=== PATIENT | female | born 1945 | race Caucasian/White ===

== ENCOUNTER 2020-02-12 06:02 | Outpatient (REF) | payer MEDICARE, SELFPAY ==
[2020-02-12 07:48] LABS: Alanine Aminotransferase 15 U/L (0-31); Albumin Level 3.7 g/dL (3.5-5.0); Alkaline Phosphatase 108 U/L (39-117); Anion Gap 15 (12-20); Aspartate Amino Transferase 15 U/L (5-31); Bilirubin Total 0.6 mg/dL (0.0-1.0); Blood Urea Nitrogen 11 mg/dL (9-16); Carbon Dioxide 30 mmol/L (22-29); Chloride 101 mmol/L (96-108); Cholesterol 103 mg/dL; Estimated Glomerular Filt Rate > 60; Glucose Fasting 121 mg/dL (60-99); HDL Cholesterol 35 mg/dL; LDL Cholesterol Calculated 58 mg/dl; Sodium 142 mmol/L (135-145); Total Protein 6.9 g/dL (6.5-8.0); Triglycerides 50 mg/dL
[2020-02-12 08:09] LABS: Vitamin D 25-OH Total 11.7 ng/mL (>30)
[2020-02-12 10:19] LABS: Folate > 20.0 ng/mL (> or = 4.0); Vitamin B12 391 pg/mL (200-900)
== END 2020-02-12 06:03 | disposition home or self-care (01) ==
LOC: HO.LAB 06:02
PROVIDERS: PCP Internal Medicine; Visit Provider Internal Medicine
DX: E53.8 Deficiency of other specified B group vitamins (principal); E11.9 Type 2 diabetes mellitus without complications; E55.9 Vitamin D deficiency, unspecified
CPT/HCPCS: 80053; 80061; 82306; 82607; 82746

== ENCOUNTER 2020-08-14 10:58 | Emergency (ER) | payer MEDICARE, SELFPAY ==
[2020-08-14] VITALS (12 sets, daily range): BP systolic 135–172; BP diastolic 22–86; PULSE 68–86; RESP 14–18; TEMP 36.4–36.6; O2SAT 92–94; BMI 35.4
--- NOTE | ~2020-08-14 | CT_ITS ---
EXAMINATION: CT HEAD WITHOUT CONTRAST CLINICAL INFORMATION: Dizziness. COMPARISON: None TECHNIQUE: Contiguous axial imaging was performed from the skull base to vertex without intravenous administration of contrast. This CT examination was performed using dose optimization techniques as appropriate, variously including the following: *Automated exposure control *Adjustment of mA and/or kV according to patient size (this includes techniques or standardized protocols for targeted exams where dose is matched to indication/reason for exam; i.e. extremities or head) *Use of iterative reconstruction technique DLP: 611 mGy-cm FINDINGS: There is no evidence of acute intracranial hemorrhage or territorial infarction. There is old right posterior parietal and occipital lobe infarct. No abnormal mass effect or midline shift is seen. Herbert to white matter differentiation is well preserved. No extra-axial fluid collections are identified. The ventricles are normal in size. There is no abnormal attenuation within the brain parenchyma. Bone windows reveal no calvarial abnormality except for a small calcified mass along the right midline frontal bone unchanged to previous study. The mastoid air cells and visualized portions of the paranasal sinuses are well aerated. CT/CT head/brain wo con IMPRESSION: No acute intracranial process seen. No significant change in the right posterior parietal and occipital lobe infarcts. Exophytic sclerotic bony lesion frontal bone is stable.
--- NOTE | 2020-08-14 14:45 | ED.DIZZY ---
HPI - Dizziness General Chief Complaint: Dizziness Stated Complaint: Dizziness,throwing up Time Seen by Provider: 08/14/20 14:33 Source: patient, family and baby attendant Mode of arrival: ambulatory Limitations: no limitations History of Present Illness HPI Narrative: 70 yo female with hx of osteoporosis, vertigo, HTN, ear infections, asthma, HLD, depression, DM comes in with c/o vomiting her food all night last night then woke up this AM and c/o feeling weak and dizzy as well as nauseated, patient has no pain still c/o nausea and dizzy when standing MD elicited complaint: dizziness and lightheadedness Pertinent past history: other (vertigo and ear infections) Onset (ago): hour(s) (early upon waking this AM) Timing: gradual onset, awoke with symptoms and intermittent Severity: moderate Description: sense of movement and lightheadedness Context: recent illness History of similar symptoms: Yes Exacerbating factors: movement/ambulation and change in body position Relieving factors: remaining still, rest and lying down Associated symptoms: vomiting Related Data Home Medications Medication Instructions Recorded Confirmed albuterol sulfate 90 mcg/actuation 2 puff INHALATION Q6H PRN 02/13/20 02/13/20 aerosol inhaler alendronate 70 mg tablet 70 mg PO QWEEK 02/13/20 02/13/20 amlodipine 10 mg tablet 10 mg PO DAILY 02/13/20 02/13/20 citalopram 10 mg tablet 10 mg PO DAILY 02/13/20 02/13/20 cyanocobalamin (vitamin B-12) 1,000 mcg PO DAILY 02/13/20 02/13/20 1,000 mcg tablet folic acid 1 mg tablet 1 mg PO DAILY 02/13/20 02/13/20 metformin 1,000 mg tablet 1,000 mg PO BID 02/13/20 02/13/20 Previous Rx's Medication Instructions Recorded doxazosin 2 mg tablet 2 mg PO DAILY #30 tab 12/30/19 blood-glucose meter #1 ea 01/03/20 dicyclomine 20 mg tablet 20 mg PO TID 30 Days #90 tab 02/13/20 atorvastatin 80 mg tablet 80 mg PO DAILY #90 cap 03/21/20 metoprolol succinate 100 mg 100 mg PO DAILY 90 Days #90 tab 03/21/20 tablet,extended release 24 hr oxybutynin chloride 10 mg 10 mg PO DAILY #90 cap 03/21/20 tablet,extended release 24 hr aspirin 81 mg tablet,delayed 81 mg PO DAILY #90 cap 04/07/20 release loratadine 10 mg tablet 10 mg PO DAILY #90 cap 04/25/20 amoxicillin 500 mg tablet 500 mg PO Q12H 7 Days #14 tab 04/30/20 losartan 25 mg tablet 25 mg PO DAILY #90 cap 06/13/20 omeprazole 20 mg capsule,delayed 20 mg PO QAM #30 cap 06/19/20 release fluticasone propionate 44 2 puff PO BID #31.8 cap 06/22/20 mcg/actuation HFA aerosol inhaler ergocalciferol (vitamin D2) 1,250 1,250 mcg PO QWEEK 30 Days #4 cap 07/06/20 mcg (50,000 unit) capsule blood sugar diagnostic 1 strip MISCELLANEOUS BID #200 cap 07/17/20 hydralazine 100 mg tablet 100 mg PO BID #180 cap 07/27/20 Allergies Allergy/AdvReac Type Severity Reaction Status Date / Time egg [EGG] AdvReac Unknown DIARRHEA Verified 08/14/20 11:52 oats [OATS] AdvReac Unknown DIARRHEA Verified 08/14/20 11:52 FROM OATMEAL Pioglitazone HCl AdvReac Unknown edema Uncoded 08/14/20 11:52 Review of Systems Review of Systems: Constitutional : No Weight loss, No Fever, No Chills, No Fatigue, No Malaise ENT/Mouth : No sore throat, No Rhinorrhea Eyes: No Eye Pain, No Swelling, No Redness Cardiovascular : No Chest Pain, No SOB, No Dyspnea on Exertion, No Orthopnea, No Edema, No Palpitations Respiratory : No Cough, No Sputum, No Wheezing Gastrointestinal : pos Nausea, pos Vomiting, No Diarrhea, No Constipation, No abdominal Pain, No Hematochezia, No Melena Genitourinary : No Dysuria, No Urinary Frequency, No Hematuria, Musculoskeletal : No joint pain, No Myalgias, No Joint Swelling Skin : No Skin Lesions, No rash Neuro : pos Weakness, No Numbness, pos Dizziness, No Headache Psych : No Anxiety/Panic, No Depression Heme/Lymph: No Bruising, No Bleeding,No Lymphadenopathy Endocrine : No Polyuria, No Polydipsia All other systems reviewed and are negative PMFSH Past Medical History Attestation statement: The following information was validated with the patient. Medical History B12 deficiency Diabetes mellitus Essential hypertension Gallstones GERD (gastroesophageal reflux disease) History of stroke Hypovitaminosis D Moderate asthma Osteoporosis Otitis media Pure hypercholesterolemia Social History Social History (Updated 08/14/20 @ 15:05 by Kristel Zapien DO) Alcohol intake: never Patient Tobacco Use Status: Never used Tobacco Smoked in Last 30 Days: No Use of substances other than those prescribed or required for medical reasons: No Advance Directives: Yes Advance Directives Information Provided: Yes Advance Directives on File: No Physical Exam Vital Signs: Vital Signs: Last Vital Signs Temp 97.5 F 08/14/20 14:46 Pulse 85 08/14/20 14:59 Resp 16 08/14/20 14:46 BP 171/75 H 08/14/20 14:59 Pulse Ox 94 08/14/20 14:46 Body Mass Index 35.4 Appearance: Alert. Oriented X3. No acute distress. Eyes: Pupils equal, round and reactive to light. ENT: Pharynx normal. bilateral cerumen impaction Neck: Normal inspection. Neck supple. CVS: Normal heart rate and rhythm. Pulses normal. Respiratory: No respiratory distress. Breath sounds normal. Abdomen: Soft and non-tender. Skin: Skin warm and dry. Normal skin color. Normal skin turgor. Extremities: No lower extremity edema. No calf ttp Neuro: Oriented X 3. No motor deficit. No sensory deficit. Course Course Course Narrative: signed out to Dr. Strauss pending labs, UA, ortho VS, and clinical improvement MDM - Dizziness MDM Narrative Medical decision making narrative: 70 yo female with hx of osteoporosis, vertigo, HTN, ear infections, asthma, HLD, depression, DM comes in with c/o vomiting her food all night last night then woke up this AM and c/o feeling weak and dizzy as well as nauseated, patient has no pain still c/o nausea and dizzy when standing at this time will obtain basic labs, EKG, troponin, IVF and zofran, likely dehydration vs vertigo, she does have bilateral cerumen impaction will attempt to irrigate overall her abdomen is benign Lab Data Result diagrams: 08/14/20 15:12 08/14/20 15:12 Labs: Lab Results 08/14/20 08/14/20 08/14/20 Range/Units 15:12 15:12 15:12 WBC 8.5 (4.8-10.8) X10*3/uL RBC 5.25 (4.20-5.50) X10*6/uL Hgb 11.7 L (12.0-16.0) g/dl Hct 38.7 (37-47) % MCV 73.7 L (80-98) fL MCH 22.3 L (27.0-33.0) pg MCHC 30.2 L (31.0-35.0) g/dl RDW 17.9 H (11.0-16.0) % Plt Count 288 (160-400) X10*3/uL MPV 9.9 (9.4-12.3) fL Immature Gran % (Auto) 0.4 (0.0-0.4) % Neut % (Auto) 78.7 H (45-73) % Lymph % (Auto) 15.6 L (20-40) % [place] % (Auto) 4.8 (2-11) % Eos % (Auto) 0.1 (0-4) % Baso % (Auto) 0.4 (0-2) % Lymph # (Auto) 1.3 (1.2-4.9) X10*3/uL [place] # (Auto) 0.4 (0.1-1.2) X10*3/uL Eos # (Auto) 0.0 (0.0-0.4) X10*3/uL Baso # (Auto) 0.0 (0.0-0.2) X10*3/uL Abs Immat Gran (auto) 0.03 (0.00-0.03) X10*3/uL Absolute Neuts (auto) 6.7 (2.0-8.3) X10*3/uL Absolute Nucleated RBC 0.000 (0.0-0.012) X10*3/uL Nucleated RBC % (auto) 0.0 (0.0-0.2) /100WBC PT 13.2 H (10.8-13.0) SEC INR 1.1 (0.9-1.1) APTT 34.9 (24.1-38.0) SEC Troponin I High Sens 7.3 (<3.5-17.0) ng/L ECG Data Attestation: I personally reviewed and interpreted this ECG as follows: ECG interpretation date: 08/14/20 ECG interpretation time: 16:08 Interpretation: Rate: 72 Rhythm: NSR [place]: normal Normal P waves. Normal ADAL. Normal QRS complex. ST T wave : normal no CHIQUI qTC: normal prior studies: no acute ischemia The study has been interpreted contemporaneously by me. . Discharge Plan Discharge Clinical Impression: Dizziness, Bilateral impacted cerumen Vomiting Qualifiers: Vomiting type: unspecified Vomiting Intractability: non-intractable Nausea presence: with nausea Qualified Code(s): R11.2 - Nausea with vomiting, unspecified Prescriptions: No Action doxazosin 2 mg tablet 2 mg PO DAILY Qty: 30 RF: 11 (DME) blood-glucose meter [[employer] [place] Lite] Kit See Rx Instructions .ROUTE .MEDSUPPLY Qty: 1 RF: 0 oxybutynin chloride 10 mg tablet extended release 24hr 10 mg PO DAILY Qty: 90 RF: 1 metoprolol succinate 100 mg tablet extended release 24 hr 100 mg PO DAILY 90 Days Qty: 90 RF: 2 atorvastatin 80 mg tablet 80 mg PO DAILY Qty: 90 RF: 1 aspirin 81 mg tablet,delayed release (DR/EC) 81 mg PO DAILY Qty: 90 RF: 1 loratadine 10 mg tablet 10 mg PO DAILY Qty: 90 RF: 3 amoxicillin 500 mg tablet 500 mg PO Q12H 7 Days Qty: 14 RF: 0 losartan 25 mg tablet 25 mg PO DAILY Qty: 90 RF: 1 omeprazole 20 mg capsule,delayed release(DR/EC) 20 mg PO QAM Qty: 30 RF: 6 fluticasone propionate [Flovent HFA] 44 mcg/actuation HFA aerosol inhaler 2 puff PO BID Qty: 31.8 RF: 6 ergocalciferol (vitamin D2) 1,250 mcg (50,000 unit) capsule 1,250 mcg PO QWEEK 30 Days Qty: 4 RF: 6 blood sugar diagnostic [FreeStyle Lite Strips] Strip 1 strip miscellaneous BID Qty: 200 RF: 10 hydralazine 100 mg tablet 100 mg PO BID Qty: 180 RF: 1 metformin 1,000 mg tablet 1,000 mg PO BID RF: 0 alendronate 70 mg tablet 70 mg PO QWEEK RF: 0 amlodipine 10 mg tablet 10 mg PO DAILY RF: 0 citalopram 10 mg tablet 10 mg PO DAILY RF: 0 cyanocobalamin (vitamin B-12) 1,000 mcg tablet 1,000 mcg PO DAILY RF: 0 folic acid 1 mg tablet 1 mg PO DAILY RF: 0 albuterol sulfate [Ventolin HFA] 90 mcg/actuation HFA aerosol inhaler 2 puff inhalation Q6H PRNRF: 0 dicyclomine 20 mg tablet 20 mg PO TID 30 Days Qty: 90 RF: 3
--- NOTE | 2020-08-14 14:50 | ECG_ITS ---
Test Reason : DIZZINESS Blood Pressure : / mmHG Vent. Rate : 072 BPM Atrial Rate : 072 BPM P-R Int : 148 ms QRS Dur : 074 ms QT Int : 424 ms P-R-T Axes : 041 020 028 degrees QTc Int : 464 ms Normal sinus rhythm Normal ECG When compared with ECG of 16-MAY-2019 18:03, No significant change was found Referred By: Kristel Zapien Electronically Signed By:NANCY HARDY MD
[2020-08-14] MEDS: 0.9 % Sodium Chloride 500 ML IV (15:04)
[2020-08-14] MEDS: ondansetron HCL 4 MG/2 ML VIAL IVPUSH (15:04)
[2020-08-14 15:20] LABS: MANUAL DIFF FLAG NO
[2020-08-14 15:22] LABS: Basophils Percent Auto 0.4 % (0-2); Eosinophils Percent Auto 0.1 % (0-4); Hematocrit 38.7 % (37-47); Hemoglobin 11.7 g/dl (12.0-16.0); Imm Gran Abs Auto 0.03 X10*3/uL (0.00-0.03); Imm Gran Pct Auto 0.4 % (0.0-0.4); Lymphocytes Absolute Auto 1.3 X10*3/uL (1.2-4.9); Lymphocytes Percent Auto 15.6 % (20-40); Mean Corpuscular HGB Conc 30.2 g/dl (31.0-35.0); Mean Corpuscular Hemoglobin 22.3 pg (27.0-33.0); Mean Corpuscular Volume 73.7 fL (80-98); Mean Platelet Volume 9.9 fL (9.4-12.3); Monocytes Absolute Auto 0.4 X10*3/uL (0.1-1.2); Monocytes Percent Auto 4.8 % (2-11); Neutrophils Absolute Auto 6.7 X10*3/uL (2.0-8.3); Neutrophils Percent Auto 78.7 % (45-73); Platelet Count 288 X10*3/uL (160-400); Red Blood Count 5.25 X10*6/uL (4.20-5.50); Red Cell Distribution Width 17.9 % (11.0-16.0); White Blood Count 8.5 X10*3/uL (4.8-10.8)
[2020-08-14] MEDS: Docusate Sodium 100 MG/10 ML LIQUID PO (15:25)
[2020-08-14 15:27] LABS: INTERNATIONAL NORM RATIO 1.1 (0.9-1.1); Prothrombin Time 13.2 SEC (10.8-13.0)
[2020-08-14 15:30] LABS: Partial Thromboplastin Time 34.9 SEC (24.1-38.0)
[2020-08-14 16:10] LABS: Troponin-I High Sensitivity 7.3 ng/L (<3.5-17.0)
[2020-08-14 17:27] LABS: Alanine Aminotransferase 15 U/L (0-31); Albumin Level 3.6 g/dL (3.5-5.0); Alkaline Phosphatase 108 U/L (39-117); Anion Gap 10 (12-20); Aspartate Amino Transferase 19 U/L (5-31); Bilirubin Direct 0.2 mg/dL (0.0-0.5); Bilirubin Total 0.3 mg/dL (0.0-1.0); Blood Urea Nitrogen 13 mg/dL (9-16); Calcium 9.1 mg/dL (8.4-10.2); Carbon Dioxide 29 mmol/L (22-29); Chloride 104 mmol/L (96-108); Creatinine Clr Calc Pharmacy 65.4; Estimated Glomerular Filt Rate > 60; Glucose Random 200 mg/dL (60-115); Lipase 8 U/L (8-78); Sodium 139 mmol/L (135-145); Total Protein 6.8 g/dL (6.5-8.0)
[2020-08-14] MEDS: Magnesium Sulfate/H2O 2 GM/50 ML PIGGYBACK IV (17:55)
--- NOTE | 2020-08-14 18:17 | PC.NURSE ---
PT AMBULATED TO BATHROOM WITH SLOW AND STEADY GAIT ONE ASSIST. UNABLE TO PEE. DID NOT WANT FOOD.
[2020-08-14 19:11] LABS: Troponin-I High Sensitivity 9.6 ng/L (<3.5-17.0)
--- NOTE | 2020-08-14 19:50 | PC.NURSE ---
CLIENT STATES SHE FEELS BETTER, LESS DIZZY. DR PANG TOOK OUT MODERATE AMOUNT OF WAX OUT OF HERE. CLIENT AMBULATES WITH CANE AT BASELINE. STATES SHE FEELS BETTER,
--- NOTE | 2020-08-14 20:15 | PC.NURSE ---
client going to attempt to urinate. ambulating to bathroom with cane. if not client will need to be straight cathed.
[2020-08-14 20:43] LABS: Glucose Urine UA NEG (NEG); Leukocyte Esterase Urine 1+ (NEG); Nitrite Urine NEG (NEG); UACC Culture Trigger YES; Urine Blood NEG (NEG); Urine Ketones NEG (NEG); Urine Protein TRACE MG/DL (NEG-TRACE)
[2020-08-14 20:45] LABS: Appearance Urine CLEAR; Color Urine YELLOW
[2020-08-14 20:56] LABS: Bacteria Urine TRACE /LPF; Mucus Urine 4+ /LPF; Squamous Epithelial Cell Urine 2+ /LPF
[2020-08-14 21:11] LABS: Magnesium 1.4 mg/dL (1.6-2.6)
--- NOTE | 2020-11-15 10:26 | MHC.HEMONCMA ---
Called Dr. Burns's office to request refill on her folic acid due to pt needing refill and calling . Message was sent to Dr. Burns.
== END 2020-08-14 21:25 | disposition home or self-care (01) ==
PROVIDERS: Emergency Medicine; Emergency Provider Emergency Medicine; PCP Internal Medicine
DX: N39.0 Urinary tract infection, site not specified (principal); R42 Dizziness and giddiness; H61.23 Impacted cerumen, bilateral; I10 Essential (primary) hypertension; E78.5 Hyperlipidemia, unspecified; E11.9 Type 2 diabetes mellitus without complications; R11.2 Nausea with vomiting, unspecified; Z79.02 Long term (current) use of antithrombotics/antiplatelets; Z79.82 Long term (current) use of aspirin; Z79.899 Other long term (current) drug therapy
CPT/HCPCS: 36415; 69209; 70450; 80048; 80076; 81001; 81003; 83690; 83735; 84484; 85025; 85610; 85730; 87086; 93005; 96361; 96365; 96366; 96374; 96375; 99284; 99285; J2405; J3475

== ENCOUNTER → 2020-09-18 09:34 | Outpatient (BNVA) | payer MEDICARE, SELFPAY | PROVIDERS: PCP Internal Medicine; Referring Provider Internal Medicine; Visit Provider Internal Medicine Cardiovascular Disease | DX: I11.0 Hypertensive heart disease with heart failure (principal); Z95.0 Presence of cardiac pacemaker; Z79.899 Other long term (current) drug therapy | CPT/HCPCS: 99212 ==

== ENCOUNTER 2020-12-19 06:15 | Outpatient (REF) | payer MEDICARE, SELFPAY ==
[2020-12-19 06:21] LABS: MANUAL DIFF FLAG NO
[2020-12-19 07:17] LABS: Basophils Percent Auto 0.5 % (0-2); Eosinophils Absolute Auto 0.2 X10*3/uL (0.0-0.4); Eosinophils Percent Auto 2.5 % (0-4); Hematocrit 36.6 % (37-47); Hemoglobin 10.9 g/dl (12.0-16.0); Imm Gran Abs Auto 0.01 X10*3/uL (0.00-0.03); Imm Gran Pct Auto 0.2 % (0.0-0.4); Lymphocytes Absolute Auto 2.2 X10*3/uL (1.2-4.9); Lymphocytes Percent Auto 33.7 % (20-40); Mean Corpuscular HGB Conc 29.8 g/dl (31.0-35.0); Mean Corpuscular Hemoglobin 22.6 pg (27.0-33.0); Mean Corpuscular Volume 75.8 fL (80-98); Mean Platelet Volume 10.7 fL (9.4-12.3); Monocytes Absolute Auto 0.6 X10*3/uL (0.1-1.2); Monocytes Percent Auto 9.8 % (2-11); Neutrophils Absolute Auto 3.5 X10*3/uL (2.0-8.3); Neutrophils Percent Auto 53.3 % (45-73); Platelet Count 224 X10*3/uL (160-400); Red Blood Count 4.83 X10*6/uL (4.20-5.50); Red Cell Distribution Width 17.7 % (11.0-16.0); White Blood Count 6.5 X10*3/uL (4.8-10.8)
[2020-12-19 07:59] LABS: Alanine Aminotransferase 15 U/L (0-31); Albumin Level 3.7 g/dL (3.5-5.0); Alkaline Phosphatase 104 U/L (39-117); Anion Gap 14 (12-20); Aspartate Amino Transferase 15 U/L (5-31); Bilirubin Total 0.4 mg/dL (0.0-1.0); Blood Urea Nitrogen 13 mg/dL (9-16); Calcium 9.4 mg/dL (8.4-10.2); Carbon Dioxide 29 mmol/L (22-29); Chloride 103 mmol/L (96-108); Cholesterol 102 mg/dL; Estimated Glomerular Filt Rate > 60; Glucose Fasting 128 mg/dL (60-99); HDL Cholesterol 32 mg/dL; LDL Cholesterol Calculated 59 mg/dl; Potassium 4.4 mmol/L (3.3-5.1); Sodium 142 mmol/L (135-145); Total Protein 6.9 g/dL (6.5-8.0); Triglycerides 57 mg/dL
[2020-12-19 09:18] LABS: Creatinine Urine 112.93 mg/dL; Microalbum/Creatinine Ratio Ur 10.6 ug/mg cr
[2020-12-19 09:20] LABS: Folate > 20.0 ng/mL (> or = 4.0); Vitamin B12 424 pg/mL (200-900)
[2020-12-24 11:46] LABS: Parietal Cell Antibody <=20.0 Unit (<=20.0)
[2020-12-24 15:11] LABS: Vitamin D 25-OH, D2 91 ng/mL; Vitamin D 25-OH, D3 <4 ng/mL; Vitamin D 25-OH, Total 91 ng/mL (30-100)
[2020-12-24 22:56] LABS: Intrinsic Factor Antibodies Negative (Negative)
== END 2020-12-19 06:16 | disposition home or self-care (01) ==
LOC: HO.LAB 06:15
PROVIDERS: PCP Internal Medicine; Visit Provider Internal Medicine
DX: E78.5 Hyperlipidemia, unspecified (principal); E53.8 Deficiency of other specified B group vitamins; E55.9 Vitamin D deficiency, unspecified; D64.9 Anemia, unspecified; E11.9 Type 2 diabetes mellitus without complications
CPT/HCPCS: 36415; 80053; 80061; 82043; 82306; 82607; 82746; 83516; 85025; 86340

== ENCOUNTER 2021-07-01 17:29 | Inpatient (IN) | payer MEDICARE, SELFPAY ==
--- NOTE | ~2021-07-01 | CT_ITS ---
EXAMINATION: CT HEAD WITHOUT CONTRAST CLINICAL INFORMATION: 76-year-old female COMPARISON: 08/14/2020 TECHNIQUE: Contiguous axial imaging was performed from the skull base to vertex without intravenous administration of contrast. This CT examination was performed using dose optimization techniques as appropriate, variously including the following: *Automated exposure control *Adjustment of mA and/or kV according to patient size (this includes techniques or standardized protocols for targeted exams where dose is matched to indication/reason for exam; i.e. extremities or head) *Use of iterative reconstruction technique DLP: 630 mGy-cm FINDINGS: There is no evidence of acute abnormalities. There is stable area of encephalomalacia in the right parietal and occipital lobe adjacent to dilated right occipital horn. There is no evidence of intracranial hemorrhage, masses, midline shift. Ventricles aren't dilated. There are patchy periventricular white matter changes. Paranasal sinuses and mastoids are well aerated.: CT/CT head/brain wo con IMPRESSION: No interval change in appearance of encephalomalacia in the right posterior parietal and occipital lobe Atrophy and sequela of microangiopathy
--- NOTE | ~2021-07-01 | XR_ITS ---
EXAMINATION: XR CHEST CLINICAL INFORMATION: Coughing for 3 days COMPARISON: 05/16/2019 TECHNIQUE: Frontal view of the chest was obtained. FINDINGS: Left-sided dual lead cardiac pacemaker in place. Cardiac mediastinal silhouette is stable. There are patchy bilateral mid and lower lung field airspace opacities with mildly prominent interstitial markings in the upper lung kelley. There is blunting of the costophrenic sulci XR/XR chest 1V IMPRESSION: Patchy airspace opacities in which may represent infiltrates in the right clinical setting.
--- NOTE | ~2021-07-01 | CT_ITS ---
EXAMINATION: CT CHEST WITHOUT CONTRAST CLINICAL INFORMATION: Multilobar infiltrates. COMPARISON: Chest x-ray of 07/01/[address] scan of 09/08/2016. TECHNIQUE: Multidetector volumetric CT imaging of the chest was done. Axial MIP volume rendering provided. Sagittal and coronal reformatted images were obtained. This CT examination was performed using dose optimization techniques as appropriate, variously including the following: *Automated exposure control *Adjustment of mA and/or kV according to patient size (this includes techniques or standardized protocols for targeted exams where dose is matched to indication/reason for exam; i.e. extremities or head) *Use of iterative reconstruction technique DLP: 282 mGy-cm FINDINGS: Study degraded due to breathing artifact throughout the study. LUNGS: Central airways are patent. There appears to be some mild bronchial wall thickening present; however, some of this may be related to motion artifact. No bronchiectasis is seen. Multiple calcified granulomas are seen bilaterally. Evaluation for lung nodules is very limited due to the motion artifact. There is some apical pleural-parenchymal scarring present. There is bilateral lower lobe interstitial and airspace disease which could be related to dependent atelectasis or pneumonitis. There is a 5 mm noncalcified nodule seen within the right upper lobe on image 189 of [id number]. MEDIASTINUM: The heart is enlarged. There is a small pericardial effusion. Pacemaker leads in place. There are aortic valve calcifications as well as coronary artery calcifications present. There is a 1.1 cm precarinal lymph node present. No definite hilar lymphadenopathy is appreciated without IV contrast. No thoracic aortic aneurysm. There is a small hiatal hernia. There is calcification of the aortic arch but without definite occlusive disease appreciated. PLEURA: There is no pleural effusion. No pleural mass or thickening. AXILLA: No lymphadenopathy. UPPER ABDOMEN: Unremarkable. OSSEOUS STRUCTURES: Unremarkable. There is a stable compression fracture of what appears to be T10 vertebral body that was present on the study of 09/08/2016. CT/CT chest wo con IMPRESSION: Bibasilar interstitial airspace disease, some of which appears be chronic but some of which is likely acute and may be related to dependent atelectasis or pneumonitis. Old granulomatous disease. A 5 mm stable right upper lobe nodule. Cardiomegaly with small pericardial effusion. 1.1 cm precarinal lymph node. Limitations of study from motion artifact as described above.
[2021-07-01 17:57] VITALS: BP 172/68; PULSE 69; RESP 18; TEMP 36.6; O2SAT 98; BMI 26.6
--- NOTE | 2021-07-01 19:21 | ECG_ITS ---
Test Reason : dizzyness Blood Pressure : / mmHG Vent. Rate : 075 BPM Atrial Rate : 075 BPM P-R Int : 150 ms QRS Dur : 074 ms QT Int : 450 ms P-R-T Axes : 048 032 058 degrees QTc Int : 502 ms Normal sinus rhythm Nonspecific T wave abnormality Abnormal ECG When compared with ECG of 14-AUG-2020 16:07, No significant change was found Referred By: Sae Limon Electronically Signed By:JAIME DELANEY
--- NOTE | 2021-07-01 19:46 | ED_ITS ---
HPI - General Adult General Chief complaint: Ear Problems Stated complaint: N/V/D 3 days/ear discomfort Time Seen by Provider: 07/01/21 19:03 Source: patient Mode of arrival: ambulatory Limitations: no limitations History of Present Illness HPI narrative: 76-year-old female with anemia, cardiac pacemaker, otitis media, asthma, GERD, B12 deficiency, history of stroke, and diabetes presents to the ED for nausea, vomiting, coughing, dizziness, and bilateral ear pain. Patient states having symptoms for the past 3 days. Patient denies any chest pain or shortness of breath. Patient denies any facial droop, paralysis of extremities, loss of vision, slurred speech or inability to walk. Related Data Home Medications Medication Instructions Recorded Confirmed alendronate 70 mg tablet (Fosamax) 70 mg PO SHAW 04/14/21 07/01/21 doxazosin 2 mg tablet (Cardura) 2 mg PO DAILY 04/14/21 07/01/21 ergocalciferol (vitamin D2) 1,250 1,250 mcg PO SA 07/01/21 07/01/21 mcg (50,000 unit) capsule Previous Rx's Medication Instructions Recorded blood-glucose meter (FreeStyle #1 ea 01/03/20 [place] Lite) meclizine 25 mg tablet 25 mg PO TID PRN #14 tab 08/14/20 fluticasone propionate 44 2 puff PO BID #31.8 cap 08/21/20 mcg/actuation HFA aerosol inhaler (Flovent HFA) dicyclomine 20 mg tablet 20 mg PO TID 30 Days #90 tab 10/30/20 metformin 500 mg tablet,extended 1,000 mg PO BID 90 Days #360 tab 11/15/20 release 24 hr metoprolol succinate 100 mg 100 mg PO DAILY 90 Days #90 tab 12/08/20 tablet,extended release 24 hr albuterol sulfate 90 mcg/actuation 2 puff INHALATION Q6H PRN 30 Days 12/23/20 aerosol inhaler (Ventolin HFA) #6.7 g ferrous sulfate 325 mg (65 mg 325 mg PO BID #60 tab 01/06/21 iron) tablet (iron) cyanocobalamin (vitamin B-12) 1,000 mcg PO DAILY 90 Days #90 tab 01/11/21 1,000 mcg tablet (Vitamin B-12) hydralazine 100 mg tablet 100 mg PO BID #180 cap 01/11/21 omeprazole 20 mg capsule,delayed 20 mg PO QAM #30 cap 02/02/21 release folic acid 1 mg tablet 1 mg PO DAILY 90 Days #90 tab 02/13/21 loratadine 10 mg tablet 10 mg PO DAILY #90 cap 04/18/21 citalopram 10 mg tablet 10 mg PO DAILY 90 Days #90 tab 05/09/21 niacin 500 mg tablet,extended 500 mg PO BEDTIME 90 Days #90 tab 05/23/21 release 24 hr atorvastatin 80 mg tablet 80 mg PO DAILY #90 tab 06/05/21 amlodipine 10 mg tablet 10 mg PO DAILY #90 tab 06/12/21 losartan 25 mg tablet 25 mg PO DAILY #90 cap 06/12/21 oxybutynin chloride 10 mg 10 mg PO DAILY #90 cap 06/19/21 tablet,extended release 24 hr Allergies Allergy/AdvReac Type Severity Reaction Status Date / Time egg [EGG] AdvReac Intermediate DIARRHEA Verified 07/01/21 17:54 oats [OATS] AdvReac Intermediate DIARRHEA Verified 07/01/21 17:54 FROM OATMEAL Pioglitazone HCl AdvReac Intermediate edema Uncoded 04/22/21 07:22 Review of Systems Review of Systems: Ear pain, nausea, vomiting, dizziness, cough, body aches, chills, Yes all other systems are reviewed and are negative [facility] Past Medical History Medical History (Updated 07/01/21 @ 23:43 by JOHNNIE Lazaro) B12 deficiency Cardiac pacemaker in situ Diabetes mellitus Diastolic dysfunction Ear discomfort Essential hypertension Gallstones GERD (gastroesophageal reflux disease) History of stroke Hypovitaminosis D Iron deficiency anemia Left hemiparesis Moderate asthma Osteoporosis Otitis media Pure hypercholesterolemia Surgical History History of pacemaker Family History Family History Father No problems noted. Mother No problems noted. Social History Social History (Updated 04/14/21 @ 09:04 by Chyna Morrell CMA) Household Members: Children Housing: House Housing Other:: lives with daughter Are you a primary home care rn to a significant other at home: No Do you presently have visiting nurse or other home services: No Alcohol intake: never Patient Tobacco Use Status: Former Tobacco user Tobacco use type: Cigarette e-Cigarette/Vaping Use: Never Used Second Hand Smoke Exposure: No Advance Directives: No Advance Directives Information Provided: No service: No Current occupational status: disabled Physical Exam ED Vital Signs: Vital Signs - 24 hr 07/01/21 17:57 07/01/21 21:20 Temperature 98 F 97.1 F Pulse Rate 69 64 Respiratory Rate 18 18 Blood Pressure 172/68 H 178/64 H Pulse Oximetry 98 95 BMI result Body Mass Index 26.6 Const General: cooperative, healthy appearing, comfortable, no acute distress, well developed, alert, awake and Physically active Orientation/consciousness: patient oriented x3 HENMT Head: Yes normal to inspection, Yes No palpable skull fracture present, Yes normocephalic, Yes atraumatic and No abrasion Ears: hearing grossly normal bilaterally, external ears normal, TM's normal bilaterally, EAC's normal, mastoids normal and no periauricular adenopathy Throat: Yes posterior oropharynx normal, Yes tonsils normal and Yes uvula midline Eyes Other: Negative nystagmus General: appearance normal, both eyes and all related structures Neck Neck: Yes normal visual inspection, Yes full ROM, Yes no lymphadenopathy, Yes no meningeal signs, Yes trachea midline, Yes supple, No anterior neck swelling and No tender Chest Chest palpation & inspection: normal inspection of the chest and normal palpation of entire chest wall Resp Effort & Inspection: normal respiratory effort and able to speak in complete sentences Auscultation: clear to auscultation bilaterally Cardio Jugular venous distension: no JVD Heart sounds: S1 normal heart sound present and S2 normal heart sound present GI Inspection: Yes normal to inspection and No abdominal wall ecchymosis Palpation (GI): Soft to palpation, not firm, nontender, no guarding and not rigid General: No CVA tenderness and Yes no CVA tenderness Back/Spine/Pelvis Back: no CVA tenderness, No CVA tenderness and No back tenderness Skin General skin exam: no rashes or lesions noted and elasticity normal Neuro Other: Right side slightly weaker than left due to history of stroke. Negative facial droop. negative slurred speech. Negative pronator drift. Negative for Romberg. Negative pronator drift General: patient oriented x3, gait normal, no meningeal signs and CN's II-XI intact bilaterally Cranial nerves: Yes CN's II-XII intact bilaterally Extrem Other: Lower extremity negative for swelling, pain edema, or calf tenderness. General: Yes normal to inspection and Yes full ROM Psych Appearance: grossly normal, well kempt and not disheveled Course Course Course Narrative: No obviously signs for infection on exam. Due to age and cardiac history and patient stating coughing although patient may have a viral syndrome will do cardiac evaluation and chest x-ray. Reevaluation(s) Reevaluation #1: Patient's chest x-ray shows bilateral pneumonia. EKG negative STEMI. Head CT scan came back normal negative for stroke. Patient O2 saturation at times dropped to 90% at rest. On ambulation O2 saturation dropped to 90% from 95%. Patient states feeling weak and dizzy. Negative for any white blood cell count, due to age and mild hypoxia patient will be admitted for pneumonia. Case discussed with hospitalist Wiley who is agreeable with plan. Magnesium ord ered for hypo magnesemia. Ceftriaxone ordered. Time: 23:40 Medical Decision Making [facility] Narrative Medical decision making narrative: Pneumonia Lab Data Result diagrams: 07/01/21 20:32 07/01/21 20:32 Labs: Lab Results 07/01/21 07/01/21 07/01/21 Range/Units 20:32 20:32 20:32 WBC 7.1 (4.8-10.8) X10*3/uL RBC 4.77 (4.20-5.50) X10*6/uL Hgb 11.3 L (12.0-16.0) g/dl Hct 37.1 (37.0-47.0) % MCV 77.8 L (80.0-98.0) fL MCH 23.7 L (27.0-33.0) pg MCHC 30.5 L (31.0-35.0) g/dl RDW 17.3 H (11.0-16.0) % Plt Count 237 (160-400) X10*3/uL MPV 9.7 (9.4-12.3) fL Immature Gran % (Auto) 0.4 (0.0-0.4) % Neut % (Auto) 64.4 (45-73) % Lymph % (Auto) 24.1 (20-40) % [place] % (Auto) 8.4 (2-11) % Eos % (Auto) 2.1 (0-4) % Baso % (Auto) 0.6 (0-2) % Lymph # (Auto) 1.7 (1.2-4.9) X10*3/uL [place] # (Auto) 0.6 (0.1-1.2) X10*3/uL Eos # (Auto) 0.2 (0.0-0.4) X10*3/uL Baso # (Auto) 0.0 (0.0-0.2) X10*3/uL Abs Immat Gran (auto) 0.03 (0.00-0.03) X10*3/uL Absolute Neuts (auto) 4.6 (2.0-8.3) x10*3/uL Absolute Nucleated RBC 0.000 (0.0-0.012) X10*3/uL Nucleated RBC % (auto) 0.0 (0.0-0.2) /100WBC PT (9.9-13.0) SEC INR (0.9-1.1) APTT (24.1-38.0) SEC Sodium (135-145) mmol/L Potassium (3.3-5.1) mmol/L Chloride (96-108) mmol/L Carbon Dioxide (22-29) mmol/L Anion Gap (12-20) BUN (9-16) mg/dL Creatinine (0.5-1.4) mg/dL Estim Creat Clear Calc Estimated GFR Random Glucose (60-115) mg/dL Calcium (8.4-10.2) mg/dL Magnesium (1.6-2.6) mg/dL Total Bilirubin (0.0-1.0) mg/dL AST (5-31) U/L ALT (0-31) U/L Alkaline Phosphatase (39-117) U/L Troponin I High Sens (<3.5-17.0) ng/L B-Natriuretic Peptide (<100) pg/mL Total Protein (6.5-8.0) g/dL Albumin (3.5-5.0) g/dL COVID-19 (LUAN) Negative (Negative) COVID-19 Clin Com See Note Influenza Type A (SANDRA) Negative (Negative) Influenza Type B (SANDRA) Negative (Negative) Influenza A & B Note See Note 04/26/22 04/26/22 04/26/22 Range/Units 20:32 20:32 20:32 WBC (4.8-10.8) X10*3/uL RBC (4.20-5.50) X10*6/uL Hgb (12.0-16.0) g/dl Hct (37.0-47.0) % MCV (80.0-98.0) fL MCH (27.0-33.0) pg MCHC (31.0-35.0) g/dl RDW (11.0-16.0) % Plt Count (160-400) X10*3/uL MPV (9.4-12.3) fL Immature Gran % (Auto) (0.0-0.4) % Neut % (Auto) (45-73) % Lymph % (Auto) (20-40) % [place] % (Auto) (2-11) % Eos % (Auto) (0-4) % Baso % (Auto) (0-2) % Lymph # (Auto) (1.2-4.9) X10*3/uL [place] # (Auto) (0.1-1.2) X10*3/uL Eos # (Auto) (0.0-0.4) X10*3/uL Baso # (Auto) (0.0-0.2) X10*3/uL Abs Immat Gran (auto) (0.00-0.03) X10*3/uL Absolute Neuts (auto) (2.0-8.3) x10*3/uL Absolute Nucleated RBC (0.0-0.012) X10*3/uL Nucleated RBC % (auto) (0.0-0.2) /100WBC PT 11.8 (9.9-13.0) SEC INR 1.0 (0.9-1.1) APTT 38.1 H (24.1-38.0) SEC Sodium 141 (135-145) mmol/L Potassium 3.7 (3.3-5.1) mmol/L Chloride 104 (96-108) mmol/L Carbon Dioxide 31 H (22-29) mmol/L Anion Gap 10 L (12-20) BUN 11 (9-16) mg/dL Creatinine 0.81 (0.5-1.4) mg/dL Estim Creat Clear Calc 57.1 Estimated GFR > 60 Random Glucose 141 H (60-115) mg/dL Calcium 9.3 (8.4-10.2) mg/dL Magnesium 1.3 L* (1.6-2.6) mg/dL Total Bilirubin 0.3 (0.0-1.0) mg/dL AST 15 (5-31) U/L ALT 16 (0-31) U/L Alkaline Phosphatase 102 (39-117) U/L Troponin I High Sens 5.2 (<3.5-17.0) ng/L B-Natriuretic Peptide 215 H (<100) pg/mL Total Protein 6.9 (6.5-8.0) g/dL Albumin 3.6 (3.5-5.0) g/dL COVID-19 (LUAN) (Negative) COVID-19 Clin Com Influenza Type A (SANDRA) (Negative) Influenza Type B (SANDRA) (Negative) Influenza A & B Note ECG Data Interpretation: Normal sinus rhythm. Ventricular rate 75. OK interval 150. QRS 74. QTC 502 Discharge Plan Discharge Clinical Impression: Pneumonia Patient Disposition: Admitted As Inpatient
[2021-07-01 20:39] LABS: MANUAL DIFF FLAG NO
[2021-07-01 20:41] LABS: Basophils Percent Auto 0.6 % (0-2); Eosinophils Absolute Auto 0.2 X10*3/uL (0.0-0.4); Eosinophils Percent Auto 2.1 % (0-4); Hematocrit 37.1 % (37.0-47.0); Hemoglobin 11.3 g/dl (12.0-16.0); Imm Gran Abs Auto 0.03 X10*3/uL (0.00-0.03); Imm Gran Pct Auto 0.4 % (0.0-0.4); Lymphocytes Absolute Auto 1.7 X10*3/uL (1.2-4.9); Lymphocytes Percent Auto 24.1 % (20-40); Mean Corpuscular HGB Conc 30.5 g/dl (31.0-35.0); Mean Corpuscular Hemoglobin 23.7 pg (27.0-33.0); Mean Corpuscular Volume 77.8 fL (80.0-98.0); Mean Platelet Volume 9.7 fL (9.4-12.3); Monocytes Absolute Auto 0.6 X10*3/uL (0.1-1.2); Monocytes Percent Auto 8.4 % (2-11); Neutrophils Absolute Auto 4.6 x10*3/uL (2.0-8.3); Neutrophils Percent Auto 64.4 % (45-73); Platelet Count 237 X10*3/uL (160-400); Red Blood Count 4.77 X10*6/uL (4.20-5.50); Red Cell Distribution Width 17.3 % (11.0-16.0); White Blood Count 7.1 X10*3/uL (4.8-10.8)
[2021-07-01 20:49] LABS: Prothrombin Time 11.8 SEC (9.9-13.0)
[2021-07-01 20:51] LABS: Partial Thromboplastin Time 38.1 SEC (24.1-38.0)
[2021-07-01 20:56] LABS: Alanine Aminotransferase 16 U/L (0-31); Albumin Level 3.6 g/dL (3.5-5.0); Alkaline Phosphatase 102 U/L (39-117); Anion Gap 10 (12-20); Aspartate Amino Transferase 15 U/L (5-31); Bilirubin Total 0.3 mg/dL (0.0-1.0); Blood Urea Nitrogen 11 mg/dL (9-16); Calcium 9.3 mg/dL (8.4-10.2); Carbon Dioxide 31 mmol/L (22-29); Chloride 104 mmol/L (96-108); Creatinine Clr Calc Pharmacy 57.1; Estimated Glomerular Filt Rate > 60; Glucose Random 141 mg/dL (60-115); Potassium 3.7 mmol/L (3.3-5.1); Sodium 141 mmol/L (135-145); Total Protein 6.9 g/dL (6.5-8.0)
[2021-07-01 21:03] LABS: B Type Natriuretic Peptide 215 pg/mL (<100); COVID-19 Test Negative (Negative); IDNOW Serial# 16C4AD1C; Troponin-I High Sensitivity 5.2 ng/L (<3.5-17.0)
[2021-07-01 21:04] LABS: Influenza A Negative (Negative); Influenza B2 Negative (Negative)
[2021-07-01 21:20] VITALS: BP 178/64; PULSE 64; RESP 18; TEMP 36.2; O2SAT 95
[2021-07-01 21:50] LABS: Magnesium 1.3 mg/dL (1.6-2.6)
--- NOTE | 2021-07-01 22:33 | PM.IMHP ---
History of Present Illness Date of Service: 07/01/21 Chief Complaint: Dizziness 76-year-old female with a past medical history of hypertension, hyperlipidemia, diabetes, diastolic CHF, history of cardiac pacemaker, B12 deficiency, anemia, history of CVA with residual left-sided hemiparesis, asthma, osteoporosis, history of otitis media, gallstones, GERD; presented to the hospital today with a chief complaint of dizziness. Patient reports that over the past 3-4 days she has been having dizziness/lightheadedness; also complains of cough and generalized body aches. Denies any fevers and chills. Denies any chest pain palpitations. Denies any fever chills cough. Denies any falls or trauma. Denies any recent travel or sick contacts. Review of all other systems is negative except mentioned above ER course: Per ER team patient's exam was nonfocal; CT head showed no acute findings; lungs sounded course; chest x-ray showed multifocal pneumonia; patient on ambulation was saturating 90% on room air; [facility] Medical History (Updated 08/07/21 @ 12:18 by Yoselyn Millan MD) B12 deficiency Cardiac pacemaker in situ CHF (congestive heart failure) Diabetes mellitus Diastolic dysfunction Ear discomfort Essential hypertension Gallstones GERD (gastroesophageal reflux disease) Hearing loss History of stroke Hypovitaminosis D Iron deficiency anemia Left hemiparesis Moderate asthma Osteoporosis Otitis media Pure hypercholesterolemia Family History Father No problems noted. Mother No problems noted. Surgical History History of pacemaker Social History Household Members: Family Housing: Apartment Housing Other:: lives with daughter Are you a primary home health care case manager to a significant other at home: No Do you presently have visiting nurse or other home services: Yes Alcohol intake: never Patient Tobacco Use Status: Former Tobacco user Tobacco use type: Cigarette e-Cigarette/Vaping Use: Never Used Second Hand Smoke Exposure: No Use of substances other than those prescribed or required for medical reasons: No Advance Directives Date on File: 07/02/21 Patient : No service: No Current occupational status: disabled Cognitive needs: Yes (walker) Hearing needs: No Vision needs: Yes (glasses) Meds Allergies Allergy/AdvReac Type Severity Reaction Status Date / Time egg [EGG] AdvReac Intermediate DIARRHEA Verified 07/08/21 16:04 oats [OATS] AdvReac Intermediate DIARRHEA Verified 07/08/21 16:04 FROM OATMEAL Pioglitazone HCl AdvReac Intermediate edema Uncoded 07/08/21 16:04 Active Medications: Current Medications Magnesium Sulfate (Magnesium Sulfate/H2o) 2 gm in 50 mls @ 25 mls/hr IV ONCE ONE Stop: 07/01/21 23:54 Pharmacy Consult (Consult Rx Perform Med Rec) 1 each MISCELLANE ONCE PRN PRN Reason: Consult order Home Medications Medication Instructions Recorded Confirmed Last Taken Type alendronate 70 mg tablet (Fosamax) 70 mg PO SHAW 04/14/21 07/08/21 06/29/21 History doxazosin 2 mg tablet (Cardura) 2 mg PO DAILY 04/14/21 07/08/21 07/01/21 History ergocalciferol (vitamin D2) 1,250 1,250 mcg PO SA 07/01/21 07/08/21 Unknown History mcg (50,000 unit) capsule Physical Exam Vital Signs and Narrative: Vital Signs: Last Vital Signs Temp 97.1 F 07/01/21 21:20 Pulse 64 07/01/21 21:20 Resp 18 07/01/21 21:20 BP 178/64 H 07/01/21 21:20 Pulse Ox 95 07/01/21 21:20 BMI result Body Mass Index 26.6 Gen: Appears be in no acute distress HEENT: NCAT, Moist mucosa. Pulmonary: Coarse breath sounds CVS: Normal S1-S2 Abdomen: BS+, Soft, Nontender Extremities: Warm well perfused Neuro: Alert and awake. Grossly nonfocal Results Labs CBC and Chem 7: 07/02/21 06:46 07/05/21 05:11 Labs: Laboratory Results - last 24 hr 07/01/21 07/01/21 07/01/21 20:32 20:32 20:32 MCV 77.8 L MCH 23.7 L MCHC 30.5 L RDW 17.3 H Plt Count 237 MPV 9.7 Immature Gran % (Auto) 0.4 Neut % (Auto) 64.4 Lymph % (Auto) 24.1 [place] % (Auto) 8.4 Eos % (Auto) 2.1 Baso % (Auto) 0.6 Lymph # (Auto) 1.7 [place] # (Auto) 0.6 Eos # (Auto) 0.2 Baso # (Auto) 0.0 Abs Immat Gran (auto) 0.03 Absolute Neuts (auto) 4.6 Absolute Nucleated RBC 0.000 Nucleated RBC % (auto) 0.0 PT INR APTT Anion Gap Estim Creat Clear Calc Estimated GFR Random Glucose Calcium Magnesium Total Bilirubin AST ALT Alkaline Phosphatase Troponin I High Sens B-Natriuretic Peptide Total Protein Albumin COVID-19 (LUAN) Negative COVID-19 Clin Com See Note Influenza Type A (SANDRA) Negative Influenza Type B (SANDRA) Negative Influenza A & B Note See Note 07/01/21 07/01/21 07/01/21 20:32 20:32 20:32 MCV MCH MCHC RDW Plt Count MPV Immature Gran % (Auto) Neut % (Auto) Lymph % (Auto) [place] % (Auto) Eos % (Auto) Baso % (Auto) Lymph # (Auto) [place] # (Auto) Eos # (Auto) Baso # (Auto) Abs Immat Gran (auto) Absolute Neuts (auto) Absolute Nucleated RBC Nucleated RBC % (auto) PT 11.8 INR 1.0 APTT 38.1 H Anion Gap 10 L Estim Creat Clear Calc 57.1 Estimated GFR > 60 Random Glucose 141 H Calcium 9.3 Magnesium 1.3 L* Total Bilirubin 0.3 AST 15 ALT 16 Alkaline Phosphatase 102 Troponin I High Sens 5.2 B-Natriuretic Peptide 215 H Total Protein 6.9 Albumin 3.6 COVID-19 (LUAN) COVID-19 Clin Com Influenza Type A (SANDRA) Influenza Type B (SANDRA) Influenza A & B Note Imaging Radiologist's Impressions: Impressions Chest X-Ray 07/01/21 19:33 IMPRESSION: Patchy airspace opacities in which may represent infiltrates in the right clinical setting. Head CT 07/01/21 20:25 IMPRESSION: No interval change in appearance of encephalomalacia in the right posterior parietal and occipital lobe Atrophy and sequela of microangiopathy Assessment and Plan (1) Multifocal pneumonia: Status: Resolved Plan 76-year-old female with a past medical history of hypertension, hyperlipidemia, diabetes, diastolic CHF, history of cardiac pacemaker, B12 deficiency, anemia, history of CVA with residual left-sided hemiparesis, asthma, osteoporosis, history of otitis media, gallstones, GERD; presented to the hospital today with a chief complaint of dizziness/dry cough/generalized body aches. Noted to have multifocal pneumonia the chest x-ray. Multifocal pneumonia: Continue empiric ceftriaxone azithromycin. Will obtain urine Legionella, strep pneumo Follow-up cultures Cough suppressants p.r.n. Dizziness: Exam nonfocal; CT head showed no acute findings; EKG nonischemic; initial troponin negative; Orthostatic vitals Fall precautions PT/OT eventually Patient has history of vertigo-continue home meclizine History of diastolic CHF: Currently stable. Monitor for signs of fluid overload. History of diabetes: Insulin sliding scale. Hold metformin. History of hypertension/hyperlipidemia: Continue home amlodipine/metoprolol/statin. Hold home losartan for now DVT ppx: Lovenox Code status: Full code Quality Stroke Does the patient have a stroke diagnosis?: No VTE Prior VTE?: No VTE Risk Level:: Medical - moderate - high VTE Device Contraindication: Treatment Not Indicated VTE Drug Contraindication: N/A - Med Ordered
--- NOTE | 2021-07-01 22:43 | PHA.MEDREC ---
Pharmacy Consult ? Medication Reconciliation Pharmacy has completed the medication reconciliation.
[2021-07-01 22:44] VITALS: BP 149/55; PULSE 66; RESP 16; TEMP 36.4; O2SAT 90
[2021-07-01] MEDS: Azithromycin 500 MG TABLET PO (23:52)
[2021-07-01] MEDS: Enoxaparin Sodium 40 MG/0.4 ML SYRINGE SUBCUT (23:52)
[2021-07-01 23:53] LABS: Lactic Acid 0.9 mmol/L (0.5-2.0)
[2021-07-01] MEDS: cefTRIAXone sodium 1 GM in 0.9 % Sodium Chloride 50 ML IV (23:53)
[2021-07-02] VITALS (10 sets, daily range): BP systolic 128–175; BP diastolic 52–84; PULSE 60–76; RESP 16–18; TEMP 36.4–37.1; O2SAT 94–99
[2021-07-02 00:01] LABS: Troponin-I High Sensitivity 6.1 ng/L (<3.5-17.0)
[2021-07-02] MEDS: Magnesium Sulfate/H2O 2 GM/50 ML PIGGYBACK IV (00:34)
[2021-07-02] MEDS: 0.9 % Sodium Chloride Flush 3 ML SYRINGE IVFLUSH ×3 (02:07→22:09)
--- NOTE | 2021-07-02 04:03 | PC.NURSE ---
pt called for assistance in using the BR. this RN and vet tech transferred pt to bedside commode, 1 assist. pt had a large loose BM. Transferred back to bed, resting comfortably at this time on 2lpm.
[2021-07-02 07:00] LABS: MANUAL DIFF FLAG NO
[2021-07-02 07:14] LABS: Anion Gap 13 (12-20); Blood Urea Nitrogen 10 mg/dL (9-16); Calcium 9.1 mg/dL (8.4-10.2); Carbon Dioxide 28 mmol/L (22-29); Chloride 103 mmol/L (96-108); Creatinine Clr Calc Pharmacy 58.6; Estimated Glomerular Filt Rate > 60; Glucose Random 154 mg/dL (60-115); Potassium 3.7 mmol/L (3.3-5.1); Sodium 140 mmol/L (135-145)
[2021-07-02 07:20] LABS: Basophils Percent Auto 0.4 % (0-2); Eosinophils Absolute Auto 0.1 X10*3/uL (0.0-0.4); Eosinophils Percent Auto 1.4 % (0-4); Hematocrit 36.2 % (37.0-47.0); Imm Gran Abs Auto 0.02 X10*3/uL (0.00-0.03); Imm Gran Pct Auto 0.3 % (0.0-0.4); Lymphocytes Absolute Auto 1.4 X10*3/uL (1.2-4.9); Lymphocytes Percent Auto 19.4 % (20-40); Mean Corpuscular HGB Conc 30.4 g/dl (31.0-35.0); Mean Corpuscular Hemoglobin 23.5 pg (27.0-33.0); Mean Corpuscular Volume 77.2 fL (80.0-98.0); Mean Platelet Volume 9.9 fL (9.4-12.3); Monocytes Absolute Auto 0.6 X10*3/uL (0.1-1.2); Monocytes Percent Auto 8.8 % (2-11); Neutrophils Percent Auto 69.7 % (45-73); Platelet Count 243 X10*3/uL (160-400); Red Blood Count 4.69 X10*6/uL (4.20-5.50); Red Cell Distribution Width 17.3 % (11.0-16.0); White Blood Count 7.1 X10*3/uL (4.8-10.8)
[2021-07-02 07:21] LABS: Glucose, Whole Blood 140 mg/dL (60-115)
[2021-07-02] MEDS: Loratadine 10 MG TABLET PO (08:18)
[2021-07-02] MEDS: Escitalopram Oxalate 5 MG TABLET PO (08:18)
[2021-07-02] MEDS: Metoprolol Succinate ER 100 MG TAB.ER.24H PO (08:19)
[2021-07-02] MEDS: Folic Acid 1 MG TABLET PO (08:19)
[2021-07-02] MEDS: Doxazosin Mesylate 2 MG TABLET PO (08:19)
[2021-07-02] MEDS: Ferrous Sulfate 324 MG TABLET.DR PO ×2 (08:19→19:36)
[2021-07-02] MEDS: Atorvastatin Calcium 80 MG TABLET PO (08:19)
[2021-07-02] MEDS: Cyanocobalamin (Vitamin B-12) 1,000 MCG TABLET 1000 MCG PO (08:19)
[2021-07-02] MEDS: Dicyclomine HCl 10 MG CAPSULE 20 MG PO ×3 (08:19→19:36)
[2021-07-02] MEDS: Omeprazole 20 MG CAPSULE.DR PO (08:19)
[2021-07-02] MEDS: amLODIPine Besylate 10 MG TABLET PO (08:19)
--- NOTE | 2021-07-02 10:38 | HO.PM.IMPN ---
Subjective Subjective Date of Service: 07/02/21 Interval History: seen and examined this AM gas technician translate daughter bedside patient reports feeling fine, but her daughter reports that she has a tendency to minimize her symptoms daughter reports that her mother has what she describes at URI symptoms for the last several days and more recently she noticed her mother feeling sob and increasingly coughing Review of Systems negative except HPI Physical Exam Vital Signs: Vital Signs: Last Vital Signs Temp 98.1 F 07/02/21 07:08 Pulse 73 07/02/21 08:17 Resp 18 07/02/21 08:17 BP 146/55 H 07/02/21 08:17 Pulse Ox 98 07/02/21 08:17 BMI result Body Mass Index 26.6 Const: Other: General - no acute distress, appears comfortable Cardiovascular - regular rate and rhythm, S1-S2 Lungs - scattered rales otherwise clear; no resp. distress Abdomen - soft, nontender, no rebound or guarding Extremities - no edema bilaterally Neuro - awake and alert, no focal deficits Objective Data Active Medications Acetaminophen (Acetaminophen 325 Mg Tablet) 650 mg PO Q6H PRN PRN Reason: Pain, Mild (Pain Scale 1-3) Albuterol Sulfate (Albuterol Sulfate 90 Mcg 8 Gm Inhaler) 2 puff INHALE Q6H PRN PRN Reason: bronchospasm Albuterol/Ipratropium (Albuterol/Iprat 2.5/0.5mg 3 Ml Ampul.Neb) 3 ml INHALE Q4H PRN PRN Reason: Shortness of Breath/Wheezing Amlodipine Besylate (Amlodipine Besylate 10 Mg Tablet) 10 mg PO DAILY [facility]; Protocol Last Admin: 07/02/21 08:19 Dose: 10 mg Documented by: SONYA Atorvastatin Calcium (Atorvastatin Calcium 80 Mg Tablet) 80 mg PO DAILY [facility] Last Admin: 07/02/21 08:19 Dose: 80 mg Documented by: SONYA Azithromycin (Azithromycin 500 Mg Tablet) 500 mg PO Q24H [facility] Last Admin: 07/01/21 23:52 Dose: 500 mg Documented by: BETITO Benzonatate (Benzonatate 100 Mg Capsule) 100 mg PO TID PRN PRN Reason: Cough Cyanocobalamin (Cyanocobalamin (Vitamin B-12) 1,000 Mcg Tablet) 1,000 mcg PO DAILY [facility] Last Admin: 07/02/21 08:19 Dose: 1,000 mcg Documented by: SONYA Dicyclomine HCl (Dicyclomine Hcl 10 Mg Capsule) 20 mg PO TID [facility] Last Admin: 07/02/21 08:19 Dose: 20 mg Documented by: SONYA Doxazosin Mesylate (Doxazosin Mesylate 2 Mg Tablet) 2 mg PO DAILY [facility]; Protocol Last Admin: 07/02/21 08:19 Dose: 2 mg Documented by: SONYA Enoxaparin Sodium (Enoxaparin Sodium 40 Mg/0.4 Ml Syringe) 40 mg SUBCUT Q24H [facility] Last Admin: 07/01/21 23:52 Dose: 40 mg Documented by: BETITO Ergocalciferol (Ergocalciferol (Vitamin D2) 1,250 Mcg Capsule) 1,250 mcg PO Sa@0900 [facility] Escitalopram Oxalate (Escitalopram Oxalate 5 Mg Tablet) 5 mg PO DAILY [facility] Last Admin: 07/02/21 08:18 Dose: 5 mg Documented by: SONYA Ferrous Sulfate (Ferrous Sulfate 324 Mg Tablet.Dr) 324 mg PO BID [facility] Last Admin: 07/02/21 08:19 Dose: 324 mg Documented by: SONYA Folic Acid (Folic Acid 1 Mg Tablet) 1 mg PO DAILY [facility] Last Admin: 07/02/21 08:19 Dose: 1 mg Documented by: SONYA Ceftriaxone Sodium 1 gm/ (Sodium Chloride) 50 mls @ 100 mls/hr IV Q24H [facility] Last Infusion: 07/02/21 00:23 Dose: 0 mls/hr Documented by: WILDA Loratadine (Loratadine 10 Mg Tablet) 10 mg PO DAILY [facility] Last Admin: 07/02/21 08:18 Dose: 10 mg Documented by: SONYA Meclizine HCl (Meclizine Hcl 25 Mg Tablet) 25 mg PO TID PRN PRN Reason: dizziness Melatonin (Melatonin 3 Mg Tablet) 6 mg PO BEDTIME PRN PRN Reason: Insomnia Metoprolol Succinate (Metoprolol Succinate Er 100 Mg Tab.Er.24h) 100 mg PO DAILY [facility]; Protocol Last Admin: 07/02/21 08:19 Dose: 100 mg Documented by: SONYA Niacin (Niacin Er 250 Mg Tablet.Er) 500 mg PO BEDTIME [facility] Non-Formulary Medication (Fluticasone Propionate [Flovent Hfa]) 2 puff PO BID [facility] Omeprazole (Omeprazole 20 Mg Capsule.Dr) 20 mg PO DAILY@0630 [facility] Last Admin: 07/02/21 08:19 Dose: 20 mg Documented by: SONYA Oxybutynin Chloride (Oxybutynin Chloride Er 5 Mg Tab.Er.24) 10 mg PO DAILY [facility] Last Admin: 07/02/21 08:18 Dose: 10 mg Documented by: SONYA Pharmacy Consult (Consult Rx Perform Med Rec) 1 each MISCELLANE ONCE PRN PRN Reason: Consult order Sodium Chloride (0.9 % Sodium Chloride Flush 3 Ml Syringe) 3 ml IVFLUSH QSHIFT [facility] Last Admin: 07/02/21 08:26 Dose: Not Given Documented by: SONYA Non-Admin Reason: Med Not Available Temazepam (Temazepam 15 Mg Capsule) 15 mg PO BEDTIME PRN PRN Reason: Insomnia Labs CBC & Chem 7: 07/02/21 06:46 07/02/21 06:46 Labs: Laboratory Results - last 24 hr 07/01/21 07/01/21 07/01/21 20:32 20:32 20:32 MCV 77.8 L MCH 23.7 L MCHC 30.5 L RDW 17.3 H Plt Count 237 MPV 9.7 Immature Gran % (Auto) 0.4 Neut % (Auto) 64.4 Lymph % (Auto) 24.1 [place] % (Auto) 8.4 Eos % (Auto) 2.1 Baso % (Auto) 0.6 Lymph # (Auto) 1.7 [place] # (Auto) 0.6 Eos # (Auto) 0.2 Baso # (Auto) 0.0 Abs Immat Gran (auto) 0.03 Absolute Neuts (auto) 4.6 Absolute Nucleated RBC 0.000 Nucleated RBC % (auto) 0.0 PT INR APTT Anion Gap Estim Creat Clear Calc Estimated GFR POC Glucose Random Glucose Lactic Acid Calcium Magnesium Total Bilirubin AST ALT Alkaline Phosphatase Troponin I High Sens B-Natriuretic Peptide Total Protein Albumin COVID-19 (LUAN) Negative COVID-19 Clin Com See Note Influenza Type A (SANDRA) Negative Influenza Type B (SANDRA) Negative Influenza A & B Note See Note 07/01/21 07/01/21 07/01/21 20:32 20:32 20:32 MCV MCH MCHC RDW Plt Count MPV Immature Gran % (Auto) Neut % (Auto) Lymph % (Auto) [place] % (Auto) Eos % (Auto) Baso % (Auto) Lymph # (Auto) [place] # (Auto) Eos # (Auto) Baso # (Auto) Abs Immat Gran (auto) Absolute Neuts (auto) Absolute Nucleated RBC Nucleated RBC % (auto) PT 11.8 INR 1.0 APTT 38.1 H Anion Gap 10 L Estim Creat Clear Calc 57.1 Estimated GFR > 60 POC Glucose Random Glucose 141 H Lactic Acid Calcium 9.3 Magnesium 1.3 L* Total Bilirubin 0.3 AST 15 ALT 16 Alkaline Phosphatase 102 Troponin I High Sens 5.2 B-Natriuretic Peptide 215 H Total Protein 6.9 Albumin 3.6 COVID-19 (LUAN) COVID-19 Clin Com Influenza Type A (SANDRA) Influenza Type B (SANDRA) Influenza A & B Note 07/01/21 07/01/21 07/02/21 23:34 23:34 06:46 MCV 77.2 L MCH 23.5 L MCHC 30.4 L RDW 17.3 H Plt Count 243 MPV 9.9 Immature Gran % (Auto) 0.3 Neut % (Auto) 69.7 Lymph % (Auto) 19.4 L [place] % (Auto) 8.8 Eos % (Auto) 1.4 Baso % (Auto) 0.4 Lymph # (Auto) 1.4 [place] # (Auto) 0.6 Eos # (Auto) 0.1 Baso # (Auto) 0.0 Abs Immat Gran (auto) 0.02 Absolute Neuts (auto) 5.0 Absolute Nucleated RBC 0.000 Nucleated RBC % (auto) 0.0 PT INR APTT Anion Gap Estim Creat Clear Calc Estimated GFR POC Glucose Random Glucose Lactic Acid 0.9 Calcium Magnesium Total Bilirubin AST ALT Alkaline Phosphatase Troponin I High Sens 6.1 B-Natriuretic Peptide Total Protein Albumin COVID-19 (LUAN) COVID-19 Clin Com Influenza Type A (SANDRA) Influenza Type B (SANDRA) Influenza A & B Note 07/02/21 07/02/21 06:46 07:04 MCV MCH MCHC RDW Plt Count MPV Immature Gran % (Auto) Neut % (Auto) Lymph % (Auto) [place] % (Auto) Eos % (Auto) Baso % (Auto) Lymph # (Auto) [place] # (Auto) Eos # (Auto) Baso # (Auto) Abs Immat Gran (auto) Absolute Neuts (auto) Absolute Nucleated RBC Nucleated RBC % (auto) PT INR APTT Anion Gap 13 Estim Creat Clear Calc 58.6 Estimated GFR > 60 POC Glucose 140 H Random Glucose 154 H Lactic Acid Calcium 9.1 Magnesium Total Bilirubin AST ALT Alkaline Phosphatase Troponin I High Sens B-Natriuretic Peptide Total Protein Albumin COVID-19 (LUAN) COVID-19 Clin Com Influenza Type A (SANDRA) Influenza Type B (SANDRA) Influenza A & B Note Assessment and Plan (1) Multifocal pneumonia: Status: Acute Plan This is a 76 yo F with a PMH of PPM in place, b12 def, htn, diastolic dysfunction, asthma, prior cva who presents with respiratory symptoms and is admitted for multifocal pneumonia. 1. Possible multifocal pneumonia CXR with multiple infiltrates, however, patient is not exhibiting the typical pneumonia symptoms other than shortness of breath will check CT chest, check procalcitonin. continue IV antibiotics - day #2; follow culture data urine Lg/pneumococcal studies pending 2. Elevated BNP prior documented history of diastolic dysfunction check 2d echo empiric lasix 3. HypoMg repleted in the ED, check again now and replete IV/PO as needed 4. Dizzines resolved 5. DM sliding scale 6. HTN/HLD continue baseline meds Full Code DVT pptx, Lovenox Reaspon for continued hospitalization: continued treatment and work up for her respiratory symptoms including IV antibiotics, IV lasix and 2d echo. Quality Stroke Does the patient have a stroke diagnosis?: No VTE Prior VTE?: No VTE Risk Level:: Medical - moderate - high VTE Device Contraindication: Treatment Not Indicated VTE Drug Contraindication: N/A - Med Ordered
[2021-07-02 11:04] LABS: Magnesium 1.9 mg/dL (1.6-2.6)
[2021-07-02] MEDS: Furosemide 20 MG/2 ML VIAL IVPUSH (11:06)
[2021-07-02 11:29] LABS: Procalcitonin 0.02 ng/mL
--- NOTE | 2021-07-02 11:42 | PC.NURSE ---
pt transported from ED to ED overflow. pt a&ox3, vss, denies any pain at this time - some buzzing in ears. 22G IV left hand placed in ED. pt has no question, no new orders at this time.
--- NOTE | 2021-07-02 11:52 | PC.NURSE ---
pt assisted onto bedpan.
--- NOTE | 2021-07-02 12:39 | MHC.SL.SWA ---
Speech Pathologist Impression: Oral phase dysphagia Risk of Aspiration Due to: Neurological Condition- hx of stroke Dysphasia Diet Status: Downgrade Liquid Consistency and Strategies for Safe Swallow: Liquid Intake Recommendation: Thin Liquid Intake Strategies: Small Sips Solid Food Consistency: Dietary Recommendations: Chopped/Advanced (NDD3) Additional Modifications to Solid Foods: No overt s/s of aspiration with PO trials. Recommend CHOPPED/ADVANCED (NDD3) solids with sauce/gravy for ease of mastication (Patient is edentulous), THIN liquids, pills WHOLE in PUREE. Recommend aspiration precautions and supervision. EXECUTIVE DIRECTOR OF NURSING to f/u tomorrow. Diet order updated by EXECUTIVE DIRECTOR OF NURSING. Notified , RN, RD of upgrade via Ayden Message. Oral Medication Intake: Whole with Puree Please contact the pharmacy regarding appropriate crushable or liquid drug formulations that are available whenever modified delivery is recommended. Compensatory Strategies and Precautions to be Taken for Safe Swallow: Sitting Upright (90 deg) Small Bites and Sips Alternate Liquids/Solids Rate of Ingestion Change Avoid Specific Foods Supervision While Eating and Drinking for Safe Swallow: Total Supervision (1:1) Foods to Avoid: Tough, difficult to chew solids Swallowing Recommended Treatments: Compens. Strategy Educat. Recommendation for Speech: Inpatient Speech Therapy Comment: Frequency/Duration: M-F as appropriate Date Range for Service Req: Timeline to reassess: Wrecker Operator Clinican/Clinical Fellow: No Supervisory Statement: I have reviewed and agree with the student/clinical fellow's documentation: N/A Speech Language Pathologist: Sarah Almanzar M.A., CCC-EXECUTIVE DIRECTOR OF NURSING
--- NOTE | 2021-07-02 15:18 | MHC.CM.PN ---
Met with patient and daughter Audra in regards to discharge planning with per diem interpreter. Patient has some minor memory issues and is very hard of hearing. Patient lives with Audra, uses a cane/walker for mobility and has a S[facility] BUFFER through [facility]. PCP verified. HCP completed, signed and witnessed. Original given to patient. Copy placed in chart. IMM explained and signed. Patient received 1 dose of J&J vaccine but no booster. Patient's daughter or her SAND BUFFER will transport patient home when medically stable. Continue to monitor for d/c needs.
--- NOTE | 2021-07-02 15:46 | PC.NURSE ---
medicated per provider order. IV flushed and patent.
--- NOTE | 2021-07-02 17:33 | PC.NURSE ---
report called to floor
[2021-07-02 17:45] LABS: Glucose, Whole Blood 164 mg/dL (60-115)
[2021-07-02 18:35] LABS: Glucose, Whole Blood 157 mg/dL (60-115)
[2021-07-02] MEDS: Azithromycin 500 MG TABLET PO (22:06)
[2021-07-02] MEDS: cefTRIAXone sodium 1 GM in 0.9 % Sodium Chloride 50 ML IV (22:08)
[2021-07-02] MEDS: Enoxaparin Sodium 40 MG/0.4 ML SYRINGE SUBCUT (22:08)
[2021-07-03] VITALS (8 sets, daily range): BP systolic 130–158; BP diastolic 55–74; PULSE 58–72; RESP 12–20; TEMP 36.6–37.3; O2SAT 92–98
[2021-07-03] MEDS: Furosemide 20 MG/2 ML VIAL IVPUSH (07:55)
[2021-07-03] MEDS: Doxazosin Mesylate 2 MG TABLET PO (07:56)
[2021-07-03] MEDS: Folic Acid 1 MG TABLET PO (07:56)
[2021-07-03] MEDS: Escitalopram Oxalate 5 MG TABLET PO (07:56)
[2021-07-03] MEDS: Metoprolol Succinate ER 100 MG TAB.ER.24H PO (07:56)
[2021-07-03] MEDS: amLODIPine Besylate 10 MG TABLET PO (07:56)
[2021-07-03] MEDS: Ferrous Sulfate 324 MG TABLET.DR PO ×2 (07:56→19:49)
[2021-07-03] MEDS: Atorvastatin Calcium 80 MG TABLET PO (07:56)
[2021-07-03] MEDS: Loratadine 10 MG TABLET PO (07:57)
[2021-07-03] MEDS: Cyanocobalamin (Vitamin B-12) 1,000 MCG TABLET 1000 MCG PO (07:57)
[2021-07-03] MEDS: 0.9 % Sodium Chloride Flush 3 ML SYRINGE IVFLUSH ×3 (08:00→22:12)
[2021-07-03] MEDS: Fluticasone Propionate 100 MCG BLST.W.DEV 1 PUFF INHALE ×2 (08:24→19:48)
--- NOTE | 2021-07-03 08:29 | CA_ITS ---
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 The calculated ejection fraction is 57% by biplane method. - Evidence suggests grade II (moderate) diastolic dysfunction. - No obvious valvular pathology seen on this study. Findings Left Ventricle Normal left ventricular cavity size. There is normal left ventricular wall thickness. The left ventricular systolic function is normal. The calculated ejection fraction is 57% by biplane method. There is no evidence of regional wall motion abnormalities. E/E prime ratio is >15, consistent with elevated filling pressures. Evidence suggests grade II (moderate) diastolic dysfunction. Right Ventricle Normal right ventricular cavity size. There is low normal right ventricular systolic function. There is a pacemaker wire seen in the right ventricle. Atria The left atrium is mildly dilated. The right atrium is normal in size. Aortic Valve There is a normal trileaflet aortic valve. There is no aortic valve stenosis. There is no aortic valve regurgitation. Mitral Valve The mitral valve appears normal. There is trace mitral valve regurgitation. There is no mitral valve stenosis. Pulmonic Valve The pulmonic valve is likely normal. Tricuspid Valve There is mild tricuspid valve regurgitation. Top normal RVSP. Great Vessels The sinuses of valsalva and asc aorta are normal in size. Small plaque is seen in the sinuses of Valsalva. Venous The inferior vena cava is normal in size and collapses greater than 50% with inspiration. Pericardium/Pleural There is a small loculated pericardial effusion overlying the left ventricle. Prior Study Comparison No significant change compared to prior study dated: 01/12/2017. Recommendations, Care & Conclusions No obvious valvular pathology seen on this study. Measurements 2D Linear Measurements IVSd: 0.94 0.6-0.9/0.6-1.0 cm LVIDd: 4.44 3.9-5.3/4.2-5.9 cm LVIDd Index: 2.47 2.4-3.2/2.2-3.1 cm/m2 LVIDs: 2.91 2.0-3.6 cm LVPWd: 0.81 0.7-1.1 cm LA Diam: 4.10 2.7-3.8/3.0-4.0 cm LAIDs Index: 2.28 1.5-2.3 cm/m2 LV Mass: 154.92 67-162/88-224 g LV Mass Index: 86.07 43-95/49-115 g/m2 LVOT Diam: 1.70 3.0+(-)1.3 cm 2D Systolic Function EF 4C: 53.50 >55% EF 2C: 61.30 >55% EF BiP: 57.00 >55% Mitral Valve MV Pk E: 0.92 MV PK A: 0.86 MV Decel Time: 323.00 E/A: 1.10 E'Lateral: 3.26 E'Medial: 3.81 E/E' Med: 24.10 E/E' Lat: 28.20 PHT: 95.00 MVA PHT: 2.32 Decel Stone: 2.84 Aortic Valve AoV Pk Filippo: 1.45 AoV Mn Filippo: 1.00 AoV VTI: 0.37 AoV Pk Grad: 8.00 Aov Mn Grad: 5.00 BRITTANEY Cont.VTI: 1.62 LVOT LVOT Pk Filippo: 0.90 LVOT Mn Filippo: 0.60 LVOT VTI: 0.26 LVOT Pk Grad: 3.00 LVOT Mn Grad: 2.00 LVOT Diam: 1.70 LVOT Area: 2.27 Diastolic Function MV Pk E: 0.92 MV Pk A: 0.86 E/A: 1.10 E'Medial: 3.81 E/E' Med: 24.10 E' Laterial: 3.26 E/E' Lat: 28.20 Right Ventricle TAPSE (mm): 16.50 TVS' Filippo: 10.70 Tricuspid Valve TR Pk Filippo: 2.85 TR Pk Grad: 32.00 RA Press: 3.00 RVSP: 35.00 Great Vessels Aorta Sinus of Valsalva: 2.73 2.0-3.[address] Ridge: 1.85 1.7-3.4 cm Ao Asc: 2.80 2.1-3.4 cm Updated in Other Vendor System with Status of Final Elliot Keating MD electronically signed on 07/03/2021 3:45:26 PM with status of Final
[2021-07-03] MEDS: Dicyclomine HCl 10 MG CAPSULE 20 MG PO ×3 (09:54→19:49)
[2021-07-03 14:09] LABS: Anion Gap 12 (12-20); Blood Urea Nitrogen 9 mg/dL (9-16); Calcium 9.3 mg/dL (8.4-10.2); Carbon Dioxide 33 mmol/L (22-29); Chloride 97 mmol/L (96-108); Creatinine Clr Calc Pharmacy 50.2; Estimated Glomerular Filt Rate 59; Glucose Random 187 mg/dL (60-115); Potassium 3.7 mmol/L (3.3-5.1); Sodium 138 mmol/L (135-145)
--- NOTE | 2021-07-03 15:48 | MHC.SL.SWA ---
Speech Pathologist Impression: Risk of Aspiration Due to: Neurological Condition Dysphasia Diet Status: Liquid Consistency and Strategies for Safe Swallow: Liquid Intake Recommendation: Thin Liquid Intake Strategies: Small Sips Solid Food Consistency: Dietary Recommendations: Chopped/Advanced (NDD3) Additional Modifications to Solid Foods: No overt s/s of aspiration with PO trials. Recommend CHOPPED/ADVANCED (NDD3) solids with sauce/gravy for ease of mastication, THIN liquids, pills WHOLE in PUREE. Recommend aspiration precautions and supervision. ASIAN ART CURATOR to f/u tomorrow. Diet order updated by ASIAN ART CURATOR. Notified MD, RN, RD of upgrade via [place] Message. Oral Medication Intake: Whole with Puree Please contact the pharmacy regarding appropriate crushable or liquid drug formulations that are available whenever modified delivery is recommended. Compensatory Strategies and Precautions to be Taken for Safe Swallow: Sitting Upright (90 deg) Small Bites and Sips Alternate Liquids/Solids Rate of Ingestion Change Avoid Specific Foods Supervision While Eating and Drinking for Safe Swallow: Total Supervision (1:1) Foods to Avoid: Tough, difficult to chew solids Swallowing Recommended Treatments: Compens. Strategy Educat. Recommendation for Speech: Inpatient Speech Therapy: Pt is Guyanese speaking and was communicated with in her first language by bilingual ASIAN ART CURATOR. Pt was very pleasant, cheerful and cooperative. Pt took sip of thin liquid from cup, w/ timely oral and pharyngeal phase noted. Pt had can of soda with straw at bedside, was asked to take straw sip. Pt appropriately took a single sip, controlled the bolus well orally and produced a timely swallow. Pt reported having a good breakfast of fruit, eggs and Turkmen toast, with no difficulty swallowing. Pt is tolerating current diet consistencies well, and demonstrating safe swallowing practices for thin liquids. Recommend continue at current level of Chopped/Advanced (NDD3) with thin liquids. Recommend one more f/u for tolerance. 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
--- NOTE | 2021-07-03 16:54 | P.PNIM_ITS ---
Subjective Subjective Date of Service: 07/03/21 Interval History: seen and examined this morning follow up for shortness of breath reports improvement in breathing this morning has been coughing overnight, no phlegm production Review of Systems Review of Systems: Yes all other systems are reviewed and are negative Constitutional Constitutional: Denies chills and Denies fever(s) Cardiovascular Cardiovascular: Denies chest pain and Denies palpitations Respiratory Respiratory: Reports cough Gastrointestinal Gastrointestinal: Denies abdominal pain, Denies nausea and Denies vomiting Endocrine Endocrine: Denies palpitations Physical Exam Vital Signs: Vital Signs: Last Vital Signs Temp 98.9 F 07/03/21 15:29 Pulse 72 07/03/21 15:29 Resp 20 07/03/21 15:29 BP 149/62 H 07/03/21 15:29 Pulse Ox 95 07/03/21 15:29 BMI result Body Mass Index 26.6 Const: General: cooperative, comfortable, alert and awake Nutritional Appearance: average body habitus Orientation/consciousness: patient oriented x3 Resp: Effort & Inspection: normal respiratory effort and able to speak in complete sentences Auscultation: diminished lung sounds Cardio: Rate: regular rate Heart sounds: S1 normal heart sound present and S2 normal heart sound present GI: Inspection: No distended Palpation (GI): Soft to palpation and nonten rebekah Neuro: General: patient oriented x3 Extrem: General: Yes no pedal edema Objective Data Active Medications Acetaminophen (Acetaminophen 325 Mg Tablet) 650 mg PO Q6H PRN PRN Reason: Pain, Mild (Pain Scale 1-3) Albuterol Sulfate (Albuterol Sulfate 90 Mcg 8 Gm Inhaler) 2 puff INHALE Q6H PRN PRN Reason: bronchospasm Albuterol/Ipratropium (Albuterol/Iprat 2.5/0.5mg 3 Ml Ampul.Neb) 3 ml INHALE Q4H PRN PRN Reason: Shortness of Breath/Wheezing Amlodipine Besylate (Amlodipine Besylate 10 Mg Tablet) 10 mg PO DAILY [facility]; Protocol Last Admin: 07/03/21 07:56 Dose: 10 mg Documented by: MERI Atorvastatin Calcium (Atorvastatin Calcium 80 Mg Tablet) 80 mg PO DAILY [facility] Last Admin: 07/03/21 07:56 Dose: 80 mg Documented by: MERI Azithromycin (Azithromycin 500 Mg Tablet) 500 mg PO Q24H [facility] Last Admin: 07/02/21 22:06 Dose: 500 mg Documented by: LIGIA Benzonatate (Benzonatate 100 Mg Capsule) 100 mg PO TID PRN PRN Reason: Cough Cyanocobalamin (Cyanocobalamin (Vitamin B-12) 1,000 Mcg Tablet) 1,000 mcg PO DAILY [facility] Last Admin: 07/03/21 07:57 Dose: 1,000 mcg Documented by: MERI Dicyclomine HCl (Dicyclomine Hcl 10 Mg Capsule) 20 mg PO TID [facility] Last Admin: 07/03/21 14:39 Dose: 20 mg Documented by: MERI Doxazosin Mesylate (Doxazosin Mesylate 2 Mg Tablet) 2 mg PO DAILY [facility]; Protocol Last Admin: 07/03/21 07:56 Dose: 2 mg Documented by: MERI Enoxaparin Sodium (Enoxaparin Sodium 40 Mg/0.4 Ml Syringe) 40 mg SUBCUT Q24H [facility] Last Admin: 07/02/21 22:08 Dose: 40 mg Documented by: LIGIA Ergocalciferol (Ergocalciferol (Vitamin D2) 1,250 Mcg Capsule) 1,250 mcg PO Sa@0900 [facility] Escitalopram Oxalate (Escitalopram Oxalate 5 Mg Tablet) 5 mg PO DAILY [facility] Last Admin: 07/03/21 07:56 Dose: 5 mg Documented by: MERI Ferrous Sulfate (Ferrous Sulfate 324 Mg Tablet.Dr) 324 mg PO BID [facility] Last Admin: 07/03/21 07:56 Dose: 324 mg Documented by: MERI Fluticasone Propionate (Fluticasone Propionate 100 Mcg Blst.W.Dev) 1 puff I NHALE RBID [facility] Last Admin: 07/03/21 08:24 Dose: 1 puff Documented by: MUNDO Folic Acid (Folic Acid 1 Mg Tablet) 1 mg PO DAILY [facility] Last Admin: 07/03/21 07:56 Dose: 1 mg Documented by: MERI Furosemide (Furosemide 20 Mg/2 Ml Vial) 20 mg IVPUSH DAILY [facility]; Protocol Last Admin: 07/03/21 07:55 Dose: 20 mg Documented by: MERI Ceftriaxone Sodium 1 gm/ (Sodium Chloride) 50 mls @ 100 mls/hr IV Q24H [facility] Last Infusion: 07/02/21 22:56 Dose: 0 mls/hr Documented by: LIGIA Loratadine (Loratadine 10 Mg Tablet) 10 mg PO DAILY [facility] Last Admin: 07/03/21 07:57 Dose: 10 mg Documented by: MERI Meclizine HCl (Meclizine Hcl 25 Mg Tablet) 25 mg PO TID PRN PRN Reason: dizziness Melatonin (Melatonin 3 Mg Tablet) 6 mg PO BEDTIME PRN PRN Reason: Insomnia Metoprolol Succinate (Metoprolol Succinate Er 100 Mg Tab.Er.24h) 100 mg PO DAILY [facility]; Protocol Last Admin: 07/03/21 07:56 Dose: 100 mg Documented by: MERI Niacin (Niacin Er 250 Mg Tablet.Er) 500 mg PO BEDTIME [facility] Last Admin: 07/02/21 19:36 Dose: 500 mg Documented by: LIGIA Omeprazole (Omeprazole 20 Mg Capsule.Dr) 20 mg PO DAILY@0630 [facility] Last Admin: 07/03/21 06:42 Dose: Not Given Documented by: LIGIA Non-Admin Reason: Patient Refused Oxybutynin Chloride (Oxybutynin Chloride Er 5 Mg Tab.Er.24) 10 mg PO DAILY [facility] Last Admin: 07/03/21 07:56 Dose: 10 mg Documented by: MERI Pharmacy Consult (Consult Rx Perform Med Rec) 1 each MISCELLANE ONCE PRN PRN Reason: Consult order Sodium Chloride (0.9 % Sodium Chloride Flush 3 Ml Syringe) 3 ml IVFLUSH QSHIFT [facility] Last Admin: 07/03/21 14:40 Dose: 3 ml Documented by: MERI Temazepam (Temazepam 15 Mg Capsule) 15 mg PO BEDTIME PRN PRN Reason: Insomnia Labs CBC & Chem 7: 07/02/21 06:46 07/03/21 13:41 Labs: Laboratory Results - last 24 hr 07/02/21 07/02/21 07/03/21 12:36 18:31 13:41 Anion Gap 12 Estim Creat Clear Calc 50.2 Estimated GFR 59 POC Glucose 164 H 157 H Random Glucose 187 H Calcium 9.3 Microbiology Microbiology Results: Microbiology 07/01/21 23:34 Blood Culture - Preliminary Blood - Venous No growth after 24 hours. 07/01/21 23:34 Blood Culture - Preliminary Blood - Venous No growth after 24 hours. 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 Possible multifocal pneumonia CXR with multiple infiltrates, however, patient is not exhibiting the typical pneumonia symptoms other than shortness of breath will check CT chest, check procalcitonin - procal low, chest CT report still pending continue IV antibiotics - day #3; follow culture data urine Lg/pneumococcal studies pending blood cultures negative to date Acute on chronic HFpEF echo showing grade II diastolic dysfunction Elevated BNP continue IV lasix HypoMg follow, replace prn Dizzines resolved DM hold metformin sliding scale HTN continue metoprolol, norvasc losartan, hydralazine on hold since admission , will resume losartan follow BP closely Full Code DVT pptx, Lovenox attending: dr. borja Reason for continued hospitalization: continued treatment and work up for her respiratory symptoms including IV antibiotics, IV lasix and 2d echo. Quality Stroke Does the patient have a stroke diagnosis?: No VTE Prior VTE?: No VTE Risk Level:: Medical - moderate - high VTE Device Contraindication: Treatment Not Indicated VTE Drug Contraindication: N/A - Med Ordered
[2021-07-03] MEDS: Acetaminophen 325 MG TABLET 650 MG PO (19:48)
[2021-07-03 20:37] LABS: Glucose, Whole Blood 154 mg/dL (60-115)
[2021-07-03] MEDS: Azithromycin 500 MG TABLET PO (22:11)
[2021-07-03] MEDS: Insulin Lispro 100 UNIT/ML 3 ML VIAL SUBCUT (22:11)
[2021-07-03] MEDS: Enoxaparin Sodium 40 MG/0.4 ML SYRINGE SUBCUT (22:11)
[2021-07-03] MEDS: cefTRIAXone sodium 1 GM in 0.9 % Sodium Chloride 50 ML IV (22:12)
[2021-07-04] VITALS (9 sets, daily range): BP systolic 125–152; BP diastolic 60–71; PULSE 60–65; RESP 16–19; TEMP 36.1–36.8; O2SAT 93–98
[2021-07-04] MEDS: Omeprazole 20 MG CAPSULE.DR PO (06:11)
[2021-07-04 06:32] LABS: B Type Natriuretic Peptide 92 pg/mL (<100)
[2021-07-04 06:47] LABS: Anion Gap 15 (12-20); Blood Urea Nitrogen 13 mg/dL (9-16); Calcium 9.3 mg/dL (8.4-10.2); Carbon Dioxide 30 mmol/L (22-29); Chloride 99 mmol/L (96-108); Creatinine Clr Calc Pharmacy 55.8; Estimated Glomerular Filt Rate > 60; Glucose Random 126 mg/dL (60-115); Magnesium 1.7 mg/dL (1.6-2.6); Potassium 3.6 mmol/L (3.3-5.1); Sodium 140 mmol/L (135-145)
[2021-07-04 08:07] LABS: Glucose, Whole Blood 154 mg/dL (60-115)
[2021-07-04] MEDS: Losartan Potassium 25 MG TABLET PO (08:27)
[2021-07-04] MEDS: Dicyclomine HCl 10 MG CAPSULE 20 MG PO ×3 (08:27→20:11)
[2021-07-04] MEDS: amLODIPine Besylate 10 MG TABLET PO (08:27)
[2021-07-04] MEDS: Doxazosin Mesylate 2 MG TABLET PO (08:27)
[2021-07-04] MEDS: Ferrous Sulfate 324 MG TABLET.DR PO ×2 (08:27→20:11)
[2021-07-04] MEDS: Loratadine 10 MG TABLET PO (08:27)
[2021-07-04] MEDS: Folic Acid 1 MG TABLET PO (08:27)
[2021-07-04] MEDS: Fluticasone Propionate 100 MCG BLST.W.DEV 1 PUFF INHALE ×2 (08:30→20:54)
[2021-07-04] MEDS: Atorvastatin Calcium 80 MG TABLET PO (08:31)
[2021-07-04] MEDS: Furosemide 20 MG/2 ML VIAL IVPUSH (08:31)
[2021-07-04] MEDS: Cyanocobalamin (Vitamin B-12) 1,000 MCG TABLET 1000 MCG PO (08:31)
[2021-07-04] MEDS: Insulin Lispro 100 UNIT/ML 3 ML VIAL SUBCUT ×3 (08:31→20:10)
[2021-07-04] MEDS: Escitalopram Oxalate 5 MG TABLET PO (08:31)
[2021-07-04] MEDS: Metoprolol Succinate ER 100 MG TAB.ER.24H PO (08:31)
[2021-07-04] MEDS: 0.9 % Sodium Chloride Flush 3 ML SYRINGE IVFLUSH ×3 (08:32→20:12)
[2021-07-04 11:31] LABS: Glucose, Whole Blood 265 mg/dL (60-115)
--- NOTE | 2021-07-04 11:51 | PM.CNCAR ---
History of Present Illness History of Present Illness Date of Service: 07/04/21 Chief complaint: Multifocal pneumonia Narrative: This is a cardiology consultation regarding question of congestive heart failure. Patient generally sees Dr. Gambino. According to his note, she has a history of diastolic dysfunction. She also has hypertension. She has a dual-chamber pacemaker in place. Based on that H&P, current admission is for generally lightheadedness and dizziness. She also had some cough and generalized body aches. When I questioned her through the pastry chef, she stated that she also has some shortness of breath with activity and that has been like that for the last few months. However the daughter as well as daughter as well as [id number] or right next to the bed and they state that they have never seen the patient look short of breath at all. Hence this discrepancy between what patient states and what the family say. Also the family stated that patient frequently exaggerates a lot of things and hence they are not sure if she is saying the truth or not. Per hospitalist note, there is a question of possible multifocal pneumonia but there is also question of congestive heart failure as well. Hence we have been asked to see her. Review of Systems Review of Systems: Yes all other systems are reviewed and are negative Constitutional: Constitutional: Reports as per HPI Eyes: Eyes: Reports as per HPI ENT: Reports as per HPI Cardiovascular: Cardiovascular: Reports as per HPI, Denies acrocyanosis, Denies cool extremities, Denies chest pain, Denies leg edema, Denies lightheadedness, Denies palpitations and Reports dyspnea Respiratory: Respiratory: Reports as per HPI, Reports no additional respiratory complaints and Reports dyspnea Gastrointestinal: Gastrointestinal: Reports as per HPI and Reports no additional gastrointestinal complaints Genitourinary: Genitourinary: Reports as per HPI Musculoskeletal: Musculoskeletal: Reports no additional musculoskeletal complaints and Reports as per HPI Integumentary/Breasts: Skin/Breast: Reports system reviewed and no additional complaints, except as docu Neurologic: Reports system reviewed and no additional complaints, except as documented and Reports as per HPI Psychiatric: Psychiatric: Reports no additional psychiatric complaints and Reports as per HPI Endocrine: Endocrine: Reports no additional endocrine complaints, Reports as per HPI and Denies palpitations Hematologic/Lymphatic: Hematologic/Lymphatic: Reports no additional hematologic/lymphatic complaints and Reports as per HPI Allergic/Immunologic: Allergic/Immunologic: Reports no additional allergic/immunologic complaints and Reports as per HPI [facility] Past Medical History Medical History (Updated 07/04/21 @ 11:56 by Elliot Keating MD) B12 deficiency Cardiac pacemaker in situ Diabetes mellitus Diastolic dysfunction Ear discomfort Essential hypertension Gallstones GERD (gastroesophageal reflux disease) History of stroke Hypovitaminosis D Iron deficiency anemia Left hemiparesis Moderate asthma Osteoporosis Otitis media Pure hypercholesterolemia Family History Family History Father No problems noted. Mother No problems noted. Surgical History Surgical History History of pacemaker Social History Social History (Updated 04/14/21 @ 09:04 by Chyna Morrell CMA) Household Members: Family Housing: Apartment Housing Other:: lives with daughter Are you a primary family member caretaker to a significant other at home: No Do you presently have visiting nurse or other home services: Yes Alcohol intake: never Patient Tobacco Use Status: Former Tobacco user Tobacco use type: Cigarette e-Cigarette/Vaping Use: Never Used Second Hand Smoke Exposure: No Advance Directives Date on File: 07/02/21 service: No Current occupational status: disabled Meds Allergies Allergy/AdvReac Type Severity Reaction Status Date / Time egg [EGG] AdvReac Intermediate DIARRHEA Verified 07/01/21 17:54 oats [OATS] AdvReac Intermediate DIARRHEA Verified 07/01/21 17:54 FROM OATMEAL Pioglitazone HCl AdvReac Intermediate edema Uncoded 04/22/21 07:22 Active Medications: Current Medications Acetaminophen (Acetaminophen 325 Mg Tablet) 650 mg PO Q6H PRN PRN Reason: Pain, Mild (Pain Scale 1-3) Last Admin: 07/03/21 19:48 Dose: 650 mg Documented by: Albuterol Sulfate (Albuterol Sulfate 90 Mcg 8 Gm Inhaler) 2 puff INHALE Q6H PRN PRN Reason: bronchospasm Albuterol/Ipratropium (Albuterol/Iprat 2.5/0.5mg 3 Ml Ampul.Neb) 3 ml INHALE Q4H PRN PRN Reason: Shortness of Breath/Wheezing Amlodipine Besylate (Amlodipine Besylate 10 Mg Tablet) 10 mg PO DAILY JAZ[facility]N; Protocol Last Admin: 07/04/21 08:27 Dose: 10 mg Documented by: Atorvastatin Calcium (Atorvastatin Calcium 80 Mg Tablet) 80 mg PO DAILY [facility] Last Admin: 07/04/21 08:31 Dose: 80 mg Documented by: Azithromycin (Azithromycin 500 Mg Tablet) 500 mg PO Q24H [facility] Last Admin: 07/03/21 22:11 Dose: 500 mg Documented by: Benzonatate (Benzonatate 100 Mg Capsule) 100 mg PO TID PRN PRN Reason: Cough Cyanocobalamin (Cyanocobalamin (Vitamin B-12) 1,000 Mcg Tablet) 1,000 mcg PO DAILY [facility] Last Admin: 07/04/21 08:31 Dose: 1,000 mcg Documented by: Dextrose (Dextrose 50 % 25 Gm/50 Ml Syringe) 25 gm IVPUSH Q15M PRN; Protocol PRN Reason: per Hypoglycemia Standing Ord. Dicyclomine HCl (Dicyclomine Hcl 10 Mg Capsule) 20 mg PO TID [facility] Last Admin: 07/04/21 08:27 Dose: 20 mg Documented by: Doxazosin Mesylate (Doxazosin Mesylate 2 Mg Tablet) 2 mg PO DAILY [facility]; Protocol Last Admin: 07/04/21 08:27 Dose: 2 mg Documented by: Enoxaparin Sodium (Enoxaparin Sodium 40 Mg/0.4 Ml Syringe) 40 mg SUBCUT Q24H [facility] Last Admin: 07/03/21 22:11 Dose: 40 mg Documented by: Ergocalciferol (Ergocalciferol (Vitamin D2) 1,250 Mcg Capsule) 1,250 mcg PO Sa@0900 [facility] Escitalopram Oxalate (Escitalopram Oxalate 5 Mg Tablet) 5 mg PO DAILY [facility] Last Admin: 07/04/21 08:31 Dose: 5 mg Documented by: Ferrous Sulfate (Ferrous Sulfate 324 Mg Tablet.) 324 mg PO BID [facility] Last Admin: 07/04/21 08:27 Dose: 324 mg Documented by: Fluticasone Propionate (Fluticasone Propionate 100 Mcg Blst.W.Dev) 1 puff INHALE RBID [facility] Last Admin: 07/04/21 08:30 Dose: 1 puff Documented by: Folic Acid (Folic Acid 1 Mg Tablet) 1 mg PO DAILY [facility] Last Admin: 07/04/21 08:27 Dose: 1 mg Documented by: Furosemide (Furosemide 20 Mg/2 Ml Vial) 20 mg IVPUSH DAILY [facility]; Protocol Last Admin: 07/04/21 08:31 Dose: 20 mg Documented by: Glucose (Glucose Gel 15 Gm Gel..Gram.) 15 gm PO Q15M PRN; Protocol PRN Reason: per Hypoglycemia Standing Ord. Ceftriaxone Sodium 1 gm/ (Sodium Chloride) 50 mls @ 100 mls/hr IV Q24H [facility] Last Infusion: 07/03/21 22:45 Dose: Infused Documented by: Insulin Human Lispro (Insulin Lispro 100 Unit/Ml 3 Ml Vial) 0 unit SUBCUT QIDACHS [facility]; Protocol Last Admin: 07/04/21 08:31 Dose: 2 unit Documented by: Loratadine (Loratadine 10 Mg Tablet) 10 mg PO DAILY [facility] Last Admin: 07/04/21 08:27 Dose: 10 mg Documented by: Losartan Potassium (Losartan Potassium 25 Mg Tablet) 25 mg PO DAILY [facility]; Protocol Last Admin: 07/04/21 08:27 Dose: 25 mg Documented by: Meclizine HCl (Meclizine Hcl 25 Mg Tablet) 25 mg PO TID PRN PRN Reason: dizziness Melatonin (Melatonin 3 Mg Tablet) 6 mg PO BEDTIME PRN PRN Reason: Insomnia Metoprolol Succinate (Metoprolol Succinate Er 100 Mg Tab.Er.24h) 100 mg PO DAILY [facility]; Protocol Last Admin: 07/04/21 08:31 Dose: 100 mg Documented by: Niacin (Niacin Er 250 Mg Tablet.Er) 500 mg PO BEDTIME [facility] Last Admin: 07/03/21 19:49 Dose: 500 mg Documented by: Omeprazole (Omeprazole 20 Mg Capsule.Dr) 20 mg PO DAILY@0630 [facility] Last Admin: 07/04/21 06:11 Dose: 20 mg Documented by: Oxybutynin Chloride (Oxybutynin Chloride Er 5 Mg Tab.Er.24) 10 mg PO DAILY [facility] Last Admin: 07/04/21 09:56 Dose: 10 mg Documented by: Pharmacy Consult (Consult Rx Perform Med Rec) 1 each MISCELLANE ONCE PRN PRN Reason: Consult order Sodium Chloride (0.9 % Sodium Chloride Flush 3 Ml Syringe) 3 ml IVFLUSH QSHIFT [facility] Last Admin: 07/04/21 08:32 Dose: 3 ml Documented by: Temazepam (Temazepam 15 Mg Capsule) 15 mg PO BEDTIME PRN PRN Reason: Insomnia Home Medications Medication Instructions Recorded Confirmed Last Taken Type alendronate 70 mg tablet (Fosamax) 70 mg PO SHAW 04/14/21 07/01/21 06/29/21 History doxazosin 2 mg tablet (Cardura) 2 mg PO DAILY 04/14/21 07/01/21 07/01/21 History ergocalciferol (vitamin D2) 1,250 1,250 mcg PO SA 07/01/21 07/01/21 Unknown History mcg (50,000 unit) capsule Physical Exam Vital Signs: Vital Signs: Last Vital Signs Temp 97.0 F 07/04/21 11:05 Pulse 60 07/04/21 11:05 Resp 19 07/04/21 11:05 BP 147/71 H 07/04/21 11:05 Pulse Ox 98 07/04/21 11:05 BMI result Body Mass Index 26.6 Const: General: comfortable and no acute distress Orientation/consciousness: patient oriented x3 HEENT: Other: Unremarkable Head: Yes normal to inspection Neck: Neck: Yes normal visual inspection Chest: Chest palpation & inspection: normal inspection of the chest Resp: Auscultation: clear to auscultation bilaterally Cardio: Palpation: normal PMI Heart sounds: S1 normal heart sound present, S2 normal heart sound present, no gallops, no murmurs and no rubs GI: Palpation (GI): Soft to palpation Back/Spine/Pelvis: Other: unremarkable Skin: General skin exam: no rashes or lesions noted Neuro: General: patient oriented x3 Extrem: General: Yes normal to inspection Psych: Mental Status: mental status grossly normal Objective Labs and Meds Result diagrams: 07/02/21 06:46 07/04/21 05:46 Lab results: Laboratory Results - last 24 hr 07/03/21 07/03/21 07/04/21 13:41 20:23 05:46 Sodium 138 140 Potassium 3.7 3.6 Chloride 97 99 Carbon Dioxide 33 H 30 H Anion Gap 12 15 BUN 9 13 Creatinine 0.92 0.83 Estim Creat Clear Calc 50.2 55.8 Estimated GFR 59 > 60 POC Glucose 154 H Random Glucose 187 H 126 H Calcium 9.3 9.3 Magnesium 1.7 B-Natriuretic Peptide 07/04/21 07/04/21 07/04/21 05:46 07:05 11:05 Sodium Potassium Chloride Carbon Dioxide Anion Gap BUN Creatinine Estim Creat Clear Calc Estimated GFR POC Glucose 154 H 265 H Random Glucose Calcium Magnesium B-Natriuretic Peptide 92 ECG Interpretation: EKG with sinus rhythm at 75/Min; nonspecific ST-T changes. Imaging Radiologist's impression: Impressions Chest CT 07/02/21 21:26 IMPRESSION: Bibasilar interstitial airspace disease, some of which appears be chronic but some of which is likely acute and may be related to dependent atelectasis or pneumonitis. Old granulomatous disease. A 5 mm stable right upper lobe nodule. Cardiomegaly with small pericardial effusion. 1.1 cm precarinal lymph node. Limitations of study from motion artifact as described above. Assessment and Plan (1) Acute on chronic diastolic (congestive) heart failure: Status: Acute Plan Echocardiogram performed yesterday shows LVEF 57%. There is moderate diastolic dysfunction with elevated filling pressures. There is no significant valvular pathology. There is top normal RVSP. Labs with hemoglobin 11. White cell 7.1. Platelets 243. Potassium is 3.6. Creatinine is 0.83. High sensitivity troponins 6.1; 5.2. Cardiac BNP 215 followed by 92. In the past, 140. Chest x-ray reported have bibasilar interstitial airspace disease some of which is chronic and some acute. Overall, difficult to say how much heart failure is playing a role. However on echocardiogram, she has elevated diastolic parameters and she also has slight increase in cardiac BNP. Clinically she is not looking too volume overloaded but chest x-ray does show some findings. Hence reasonable to continue IV diuretics for a day or so. Input output summary does not seem accurate and there is no recorded urine at all. Otherwise, she is also on IV antibiotics. Blood pressure medications. Blood pressure is slightly on the higher side with some high numbers but some normal numbers. Will need to be adjusted at some point if it does not get better with diuretics. Discussed with daughter as well as [id number] at the bedside. Procedures Date of Service Date of Service: 07/04/21
--- NOTE | 2021-07-04 12:38 | HO.PM.IMPN ---
Subjective Subjective Date of Service: 07/04/21 Interval History: seen and examined this morning follow up for shortness of breath breathing improving, still with dry cough no fever, chills Review of Systems Review of Systems: Yes all other systems are reviewed and are negative Constitutional Constitutional: Denies chills and Denies fever(s) Cardiovascular Cardiovascular: Denies chest pain, Denies palpitations and Denies dyspnea Respiratory Respiratory: Reports cough and Denies dyspnea Endocrine Endocrine: Denies palpitations Physical Exam Vital Signs: Vital Signs: Last Vital Signs Temp 97.0 F 07/04/21 11:05 Pulse 60 07/04/21 11:35 Resp 19 07/04/21 11:05 BP 147/71 H 07/04/21 11:35 Pulse Ox 98 07/04/21 11:35 BMI result Body Mass Index 26.6 Const: General: cooperative, comfortable, alert and awake Nutritional Appearance: average body habitus Orientation/consciousness: patient oriented x3 Resp: Effort & Inspection: normal respiratory effort and able to speak in complete sentences Auscultation: diminished lung sounds Cardio: Rate: regular rate Heart sounds: S1 normal heart sound present and S2 normal heart sound present GI: Inspection: No distended Palpation (GI): Soft to palpation and nontender Neuro: General: patient oriented x3 Extrem: General: Yes no pedal edema Objective Data Active Medications Acetaminophen (Acetaminophen 325 Mg Tablet) 650 mg PO Q6H PRN PRN Reason: Pain, Mild (Pain Scale 1-3) Last Admin: 07/03/21 19:48 Dose: 650 mg Documented by: LISSQC Albuterol Sulfate (Albuterol Sulfate 90 Mcg 8 Gm Inhaler) 2 puff INHALE Q6H PRN PRN Reason: bronchospasm Albuterol/Ipratropium (Albuterol/Iprat 2.5/0.5mg 3 Ml Ampul.Neb) 3 ml INHALE Q4H PRN PRN Reason: Shortness of Breath/Wheezing Amlodipine Besylate (Amlodipine Besylate 10 Mg Tablet) 10 mg PO DAILY [facility]; Protocol Last Admin: 07/04/21 08:27 Dose: 10 mg Documented by: ROSALIND Atorvastatin Calcium (Atorvastatin Calcium 80 Mg Tablet) 80 mg PO DAILY [facility] Last Admin: 07/04/21 08:31 Dose: 80 mg Documented by: ROSALIND Azithromycin (Azithromycin 500 Mg Tablet) 500 mg PO Q24H [facility] Last Admin: 07/03/21 22:11 Dose: 500 mg Documented by: LIGIA Benzonatate (Benzonatate 100 Mg Capsule) 100 mg PO TID PRN PRN Reason: Cough Cyanocobalamin (Cyanocobalamin (Vitamin B-12) 1,000 Mcg Tablet) 1,000 mcg PO DAILY [facility] Last Admin: 07/04/21 08:31 Dose: 1,000 mcg Documented by: ROSALIND Dextrose (Dextrose 50 % 25 Gm/50 Ml Syringe) 25 gm IVPUSH Q15M PRN; Protocol PRN Reason: per Hypoglycemia Standing Ord. Dicyclomine HCl (Dicyclomine Hcl 10 Mg Capsule) 20 mg PO TID [facility] Last Admin: 07/04/21 08:27 Dose: 20 mg Documented by: ROSALIND Doxazosin Mesylate (Doxazosin Mesylate 2 Mg Tablet) 2 mg PO DAILY [facility]; Protocol Last Admin: 07/04/21 08:27 Dose: 2 mg Documented by: ROSALIND Enoxaparin Sodium (Enoxaparin Sodium 40 Mg/0.4 Ml Syringe) 40 mg SUBCUT Q24H [facility] Last Admin: 07/03/21 22:11 Dose: 40 mg Documented by: LIGIA Ergocalciferol (Ergocalciferol (Vitamin D2) 1,250 Mcg Capsule) 1,250 mcg PO Sa@0900 [facility] Escitalopram Oxalate (Escitalopram Oxalate 5 Mg Tablet) 5 mg PO DAILY [facility] Last Admin: 07/04/21 08:31 Dose: 5 mg Documented by: ROSALIND Ferrous Sulfate (Ferrous Sulfate 324 Mg Tablet.) 324 mg PO BID [facility] Last Admin: 07/04/21 08:27 Dose: 324 mg Documented by: ROSALIND Fluticasone Propionate (Fluticasone Propionate 100 Mcg Blst.W.Dev) 1 puff INHALE RBID [facility] Last Admin: 07/04/21 08:30 Dose: 1 puff Documented by: MUNDO Folic Acid (Folic Acid 1 Mg Tablet) 1 mg PO DAILY [facility] Last Admin: 07/04/21 08:27 Dose: 1 mg Documented by: ROSALIND Furosemide (Furosemide 20 Mg Tablet) 20 mg PO DAILY [facility]; Protocol Glucose (Glucose Gel 15 Gm Gel..Gram.) 15 gm PO Q15M PRN; Protocol PRN Reason: per Hypoglycemia Standing Ord. Ceftriaxone Sodium 1 gm/ (Sodium Chloride) 50 mls @ 100 mls/hr IV Q24H [facility] Last Infusion: 07/03/21 22:45 Dose: 0 mls/hr Documented by: LIGIA Insulin Human Lispro (Insulin Lispro 100 Unit/Ml 3 Ml Vial) 0 unit SUBCUT QIDACHS [facility]; Protocol Last Admin: 07/04/21 11:51 Dose: 6 unit Documented by: ROSALIND Loratadine (Loratadine 10 Mg Tablet) 10 mg PO DAILY [facility] Last Admin: 07/04/21 08:27 Dose: 10 mg Documented by: ROSALIND Losartan Potassium (Losartan Potassium 25 Mg Tablet) 25 mg PO DAILY [facility]; Protocol Last Admin: 07/04/21 08:27 Dose: 25 mg Documented by: ROSALIND Meclizine HCl (Meclizine Hcl 25 Mg Tablet) 25 mg PO TID PRN PRN Reason: dizziness Melatonin (Melatonin 3 Mg Tablet) 6 mg PO BEDTIME PRN PRN Reason: Insomnia Metoprolol Succinate (Metoprolol Succinate Er 100 Mg Tab.Er.24h) 100 mg PO DAILY [facility]; Protocol Last Admin: 07/04/21 08:31 Dose: 100 mg Documented by: ROSALIND Niacin (Niacin Er 250 Mg Tablet.Er) 500 mg PO BEDTIME [facility] Last Admin: 07/03/21 19:49 Dose: 500 mg Documented by: LIGIA Omeprazole (Omeprazole 20 Mg Capsule.Dr) 20 mg PO DAILY@0630 [facility] Last Admin: 07/04/21 06:11 Dose: 20 mg Documented by: MORRINL Oxybutynin Chloride (Oxybutynin Chloride Er 5 Mg Tab.Er.24) 10 mg PO DAILY [facility] Last Admin: 07/04/21 09:56 Dose: 10 mg Documented by: ROSALIND Pharmacy Consult (Consult Rx Perform Med Rec) 1 each MISCELLANE ONCE PRN PRN Reason: Consult order Sodium Chloride (0.9 % Sodium Chloride Flush 3 Ml Syringe) 3 ml IVFLUSH QSHIFT [facility] Last Admin: 07/04/21 08:32 Dose: 3 ml Documented by: ROSALIND Temazepam (Temazepam 15 Mg Capsule) 15 mg PO BEDTIME PRN PRN Reason: Insomnia Labs CBC & Chem 7: 07/02/21 06:46 07/04/21 05:46 Labs: Laboratory Results - last 24 hr 07/03/21 07/03/21 07/04/21 13:41 20:23 05:46 Anion Gap 12 15 Estim Creat Clear Calc 50.2 55.8 Estimated GFR 59 > 60 POC Glucose 154 H Random Glucose 187 H 126 H Calcium 9.3 9.3 Magnesium 1.7 B-Natriuretic Peptide 07/04/21 07/04/21 07/04/21 05:46 07:05 11:05 Anion Gap Estim Creat Clear Calc Estimated GFR POC Glucose 154 H 265 H Random Glucose Calcium Magnesium B-Natriuretic Peptide 92 Microbiology Microbiology Results: Microbiology 07/01/21 23:34 Blood Culture - Preliminary Blood - Venous No growth after 48 hours. 07/01/21 23:34 Blood Culture - Preliminary Blood - Venous No growth after 48 hours. Assessment and Plan (1) Acute on chronic diastolic (congestive) heart failure: Status: Acute (2) Pneumonia: Status: Acute Plan This is a 76 yo F with a PMH of PPM in place, b12 def, htn, diastolic dysfunction, asthma, prior cva who presents with respiratory symptoms and is admitted for multifocal pneumonia. Possible multifocal pneumonia CXR with multiple infiltrates will check CT chest, check procalcitonin - procal low, but chest CT showing some pneumonitis. pt with ongoing cough continue IV antibiotics - day #4/5 urine Lg/pneumococcal studies pending blood cultures negative to date Acute on chronic HFpEF echo showing grade II diastolic dysfunction BNP trending down seen by cardiology will transition to po lasix HypoMg follow, replace prn Dizzines resolved DM hold metformin sliding scale HTN continue metoprolol, norvasc losartan, hydralazine on hold since admission , will resume losartan follow BP closely Full Code DVT pptx, Lovenox attending: dr. cartwright Reason for continued hospitalization: continued treatment and work up for her respiratory symptoms including IV antibiotics, IV lasix PT eval for safe disposition Quality Stroke Does the patient have a stroke diagnosis?: No VTE Prior VTE?: No VTE Risk Level:: Medical - moderate - high VTE Device Contraindication: Treatment Not Indicated VTE Drug Contraindication: N/A - Med Ordered
--- NOTE | 2021-07-04 12:48 | MHC.SLORD ---
Speech Language Pathology Order Status: Checked in with RN this afternoon. Patient is tolerating recommended consistencies chopped/advanced solids (NDD3) and thin liquids. Further ST intervention no longer warranted. Please re-refer with any further concern.
--- NOTE | 2021-07-04 14:25 | MHC.CM.PN ---
[facility], PER HOSPITALIST PT WILL REMAIN INPT FOR IV ABX AND IV LASIX, PT RECOMMENDING HOME W/SERVICES AND CM HAS CALL OUT TO [facility] TO DETERMINE IF THEY CAN PROVIDE PT FOR PT, IF NOT CM WILL PLACE REFERRAL TO [facility]. CM WILL CONT TO FOLLOW D/C NEEDS.
[2021-07-04 17:19] LABS: Glucose, Whole Blood 113 mg/dL (60-115)
[2021-07-04 19:41] LABS: Glucose, Whole Blood 236 mg/dL (60-115)
[2021-07-04] MEDS: cefTRIAXone sodium 1 GM in 0.9 % Sodium Chloride 50 ML IV (22:34)
[2021-07-04] MEDS: Enoxaparin Sodium 40 MG/0.4 ML SYRINGE SUBCUT (22:34)
[2021-07-04] MEDS: Azithromycin 500 MG TABLET PO (23:03)
[2021-07-05 03:34] VITALS: BP 121/60; PULSE 64; RESP 16; TEMP 36.6; O2SAT 97
[2021-07-05] MEDS: Omeprazole 20 MG CAPSULE.DR PO (05:54)
[2021-07-05 06:24] LABS: Anion Gap 14 (12-20); Blood Urea Nitrogen 16 mg/dL (9-16); Calcium 9.2 mg/dL (8.4-10.2); Carbon Dioxide 33 mmol/L (22-29); Chloride 96 mmol/L (96-108); Creatinine Clr Calc Pharmacy 55.1; Estimated Glomerular Filt Rate > 60; Glucose Random 117 mg/dL (60-115); Potassium 3.8 mmol/L (3.3-5.1); Sodium 139 mmol/L (135-145)
[2021-07-05 07:55] VITALS: BP 166/97; PULSE 63; RESP 15; TEMP 36.8; O2SAT 93
[2021-07-05 08:04] LABS: Glucose, Whole Blood 122 mg/dL (60-115)
[2021-07-05] MEDS: Fluticasone Propionate 100 MCG BLST.W.DEV 1 PUFF INHALE (08:14)
[2021-07-05 08:15] VITALS: PULSE 65; RESP 18; O2SAT 97
[2021-07-05] MEDS: Dicyclomine HCl 10 MG CAPSULE 20 MG PO (08:50)
[2021-07-05] MEDS: Losartan Potassium 25 MG TABLET PO (08:50)
[2021-07-05] MEDS: Folic Acid 1 MG TABLET PO (08:50)
[2021-07-05] MEDS: Ergocalciferol (Vitamin D2) 1,250 MCG CAPSULE 1250 MCG PO (08:50)
[2021-07-05] MEDS: amLODIPine Besylate 10 MG TABLET PO (08:51)
[2021-07-05] MEDS: Cyanocobalamin (Vitamin B-12) 1,000 MCG TABLET 1000 MCG PO (08:52)
[2021-07-05] MEDS: Loratadine 10 MG TABLET PO (08:52)
[2021-07-05] MEDS: Furosemide 20 MG TABLET PO (08:52)
[2021-07-05] MEDS: Metoprolol Succinate ER 100 MG TAB.ER.24H PO (08:52)
[2021-07-05] MEDS: Doxazosin Mesylate 2 MG TABLET PO (08:52)
[2021-07-05] MEDS: Ferrous Sulfate 324 MG TABLET.DR PO (08:52)
[2021-07-05] MEDS: 0.9 % Sodium Chloride Flush 3 ML SYRINGE IVFLUSH (08:52)
[2021-07-05] MEDS: Atorvastatin Calcium 80 MG TABLET PO (08:52)
[2021-07-05] MEDS: Escitalopram Oxalate 5 MG TABLET PO (08:52)
--- NOTE | 2021-07-05 11:21 | PM.DS ---
DS: Providers Provider Date of Service: 07/05/21 Date of admission: 07/01/21 22:37 Primary care physician: Yoselyn Millan MD Consults: 07/03/21 16:39 Consult to Cardiology Routine Consulting Provider: Elliot Keating Reason for consultation: chf Has provider been notified: No DS: Diagnosis Discharge Diagnosis (1) Acute on chronic diastolic (congestive) heart failure: Status: Acute (2) Pneumonia: Status: Acute DS: Summary Hospital Course Hospital Course: HPI as per admitting provider 76-year-old female with a past medical history of hypertension, hyperlipidemia, diabetes, diastolic CHF, history of cardiac pacemaker, B12 deficiency, anemia, history of CVA with residual left-sided hemiparesis, asthma, osteoporosis, history of otitis media, gallstones, GERD; presented to the hospital today with a chief complaint of dizziness.?Patient reports that over the past 3-4 days she has been having dizziness/lightheadedness; also complains of cough and generalized body aches.? Denies any fevers and chills.?Denies any chest pain palpitations.?Denies any fever chills cough.?Denies any falls or trauma.?Denies any recent travel or sick contacts.?Review of all other systems is negative except mentioned above ER course: Per ER team patient's exam was nonfocal; CT head showed no acute findings; lungs sounded course; chest x-ray showed multifocal pneumonia; patient on ambulation was saturating 90% on room air; . Multifocal pneumonia. significantly improved CXR with multiple infiltrates will check CT chest, check procalcitonin - procal low, but chest CT showing some pneumonitis. pt with ongoing cough Treated with IV rocephin and azithromycin, home with 3 more days of ceftin and azithromycin blood cultures negative to date Acute on chronic HFpEF echo showing grade II diastolic dysfunction BNP trended down seen by cardiology oral lasix HypoMg Repleted Dizzines resolved DM continue home medications HTN continue metoprolol, norvasc, losartan, hydralazine Time Spent with Patient Time attestation: Total time spent providing and/or coordinating discharge services: Discharge coordination time: Greater than 30 minutes Quality: Safe Use of Opioids Does Pt have an Active Cancer Diagnosis on the Problem List?: No Quality: Stroke Does the patient have a stroke diagnosis?: No Physical Exam Vital Signs: Vital Signs: Last Vital Signs Temp 98.3 F 07/05/21 07:55 Pulse 65 07/05/21 08:15 Resp 18 07/05/21 08:15 BP 166/97 H 07/05/21 07:55 Pulse Ox 93 07/05/21 07:55 BMI result Body Mass Index 26.6 Appearing in no acute distress head is normocephalic atraumatic eyes pupils are PERRLA sclera is anicteric mouth throat mucous membranes are intact and moist neck is supple no lymphadenopathy, no JVD noted lung sounds are clear to auscultation heart regular rate rhythm, clear S1, S2 positive bowel sounds, abdomen is soft, nontender neuro patient is alert x3, no focal deficits DS: Data Data Completed and Pending Labs on day of discharge: Laboratory Results - last 24 hr 07/04/21 07/04/21 07/04/21 11:05 17:11 19:32 Sodium Potassium Chloride Carbon Dioxide Anion Gap BUN Creatinine Estim Creat Clear Calc Estimated GFR POC Glucose 265 H 113 236 H Random Glucose Calcium 07/05/21 07/05/21 05:11 07:53 Sodium 139 Potassium 3.8 Chloride 96 Carbon Dioxide 33 H Anion Gap 14 BUN 16 Creatinine 0.84 Estim Creat Clear Calc 55.1 Estimated GFR > 60 POC Glucose 122 H Random Glucose 117 H Calcium 9.2 Preliminary micro results at discharge 07/01/21 23:34 Blood Culture - Preliminary Blood - Venous No growth after 48 hours. 07/01/21 23:34 Blood Culture - Preliminary Blood - Venous No growth after 48 hours. Discharge Plan Discharge Anticipated Discharge Date/Time: 07/05/21 11:15 Patient Disposition: Home, Self-Care Discharge Diagnosis: CAP Acute in chronic CHF Referrals: Yoselyn Figueroa MD [Primary Care Provider] - 1 Week Discharge Medications: New azithromycin 500 mg Tablet 500 mg PO Q24H Qty: 3 0RF cefuroxime axetil 500 mg tablet 500 mg PO BID Qty: 6 0RF Continued (DME) blood-glucose meter [FreeStyle [place] Lite] Kit See Rx Instructions .ROUTE .MEDSUPPLY Qty: 1 0RF Rx Instructions: As directed dicyclomine 20 mg tablet 20 mg PO TID 30 Days Qty: 90 3RF metformin 500 mg tablet extended release 24 hr 1,000 mg PO BID 90 Days Qty: 360 3RF metoprolol succinate 100 mg tablet extended release 24 hr 100 mg PO DAILY 90 Days Qty: 90 2RF albuterol sulfate [Ventolin HFA] 90 mcg/actuation HFA aerosol inhaler 2 puff inhalation Q6H PRN (Reason: bronchospasm) 30 Days Qty: 6.7 1RF cyanocobalamin (vitamin B-12) [Vitamin B-12] 1,000 mcg tablet 1,000 mcg PO DAILY 90 Days Qty: 90 2RF hydralazine 100 mg tablet 100 mg PO BID Qty: 180 1RF omeprazole 20 mg capsule,delayed release(DR/EC) 20 mg PO QAM Qty: 30 6RF folic acid 1 mg tablet 1 mg PO DAILY 90 Days Qty: 90 3RF loratadine 10 mg tablet 10 mg PO DAILY Qty: 90 3RF citalopram 10 mg tablet 10 mg PO DAILY 90 Days Qty: 90 3RF niacin 500 mg tablet extended release 24 hr 500 mg PO BEDTIME 90 Days Qty: 90 0RF atorvastatin 80 mg tablet 80 mg PO DAILY Qty: 90 2RF amlodipine 10 mg tablet 10 mg PO DAILY Qty: 90 2RF losartan 25 mg tablet 25 mg PO DAILY Qty: 90 1RF oxybutynin chloride 10 mg tablet extended release 24 hr 10 mg PO DAILY Qty: 90 1RF meclizine 25 mg tablet 25 mg PO TID PRN (Reason: dizziness) Qty: 14 0RF ferrous sulfate [iron] 325 mg (65 mg iron) Tablet 325 mg PO BID Qty: 60 6RF alendronate [Fosamax] 70 mg tablet 70 mg PO SHAW 0RF doxazosin [Cardura] 2 mg tablet 2 mg PO DAILY 0RF ergocalciferol (vitamin D2) 1,250 mcg (50,000 unit) capsule 1,250 mcg PO SA 0RF Flovent HFA 44 mcg/actuation HFA aerosol inhaler 2 puff PO BID Qty: 31.8 6RF Diet: advance to usual diet Activity on Discharge: As tolerated Stand Alone Forms: Patient Portal Discharge page Care Plan Goals: Resolution of symptoms Health Concerns: CAP Acute in chronic CHF Plan of Treatment: Follow up with your primary care provider as needed Continue medications as prescribed Assessment: See discharge summary
[2021-07-05 11:59] VITALS: BP 130/65; PULSE 100; RESP 16; TEMP 36.2; O2SAT 97
[2021-07-05] MEDS: Insulin Lispro 100 UNIT/ML 3 ML VIAL SUBCUT (13:01)
[2021-07-05 13:24] LABS: Glucose, Whole Blood 201 mg/dL (60-115)
[2021-07-05 22:32] LABS: Strep Pneumo Ag urine Not Detected (Not Detected)
[2021-07-07 04:56] LABS: Legionella Ag Urine Not Detected (Not Detected)
== END 2021-07-05 13:41 | disposition home or self-care (01) | DRG 193 ==
LOC: HO.ED 19:03 → HO.EDOVER 23:32 → HO.S3 07-02 16:51
PROVIDERS: Family Medicine; Physician Assistant; Physician Assistant Medical; Admitting Provider Hospitalist; Emergency Provider Emergency Medicine; PCP Internal Medicine; Visit Provider Nurse Practitioner Acute Care
DX: J18.9 Pneumonia, unspecified organism (principal); I50.33 Acute on chronic diastolic (congestive) heart failure; I69.354 Hemiplegia and hemiparesis following cerebral infarction affecting left non-dominant side; K21.9 Gastro-esophageal reflux disease without esophagitis; E78.5 Hyperlipidemia, unspecified; J45.909 Unspecified asthma, uncomplicated; I11.0 Hypertensive heart disease with heart failure; E11.9 Type 2 diabetes mellitus without complications; E83.42 Hypomagnesemia; Z20.822 Contact with and (suspected) exposure to COVID-19; Z95.0 Presence of cardiac pacemaker; Z87.891 Personal history of nicotine dependence; Z91.012 Allergy to eggs; Z79.51 Long term (current) use of inhaled steroids; Z79.899 Other long term (current) drug therapy
CPT/HCPCS: 36415; 70450; 71045; 71250; 80048; 80053; 82947; 83605; 83735; 83880; 84145; 84484; 85025; 85610; 85730; 87040; 87449; 87502; 87635; 87899; 92526; 92610; 93005; 93306; 94640; 96365; 96366; 97162; 99285; J0696; J1650; J1940; J3475

== ENCOUNTER 2021-08-22 07:17 | Outpatient (REF) | payer OTHER, SELFPAY ==
--- NOTE | ~2021-08-22 | MM_ITS ---
EXAMINATION: MM SCREENING DIGITAL BREAST TOMOSYNTHESIS, BILATERAL CLINICAL INFORMATION: Screening. Asymptomatic. The lifetime risk of breast cancer based on the Tyrer-Cuzick Model is 2%. COMPARISON: Mammography: 09/29/2019, 09/23/2018, 09/09/2017 TECHNIQUE: Digital breast tomosynthesis is performed in both the craniocaudal and mediolateral oblique views along with computer-aided detection (CAD). Synthesized 2D images are generated from the tomosynthesis. FINDINGS: There are scattered areas of fibroglandular density (ACR BI-RADS breast composition Category b). Right breast shows no interval mass or architectural abnormality. Neither breast shows abnormal calcifications. There are scattered bilateral predominantly vascular calcifications. Pacemaker generator overlies and partly obscures posterior upper left axilla on MLO view. Left breast has a smooth oval nodule close to skin posterior 8:00 position 12 cm from nipple measuring approximately 0.8 x 0.6 cm. Patient will be recalled for additional imaging to further characterize. MM/MM tomosynthesis screening BI IMPRESSION: Left: -Smooth nodule under 1 cm close to skin posterior 8:00 position. Right: -No mammographic evidence of malignancy. ASSESSMENT: BI-RADS 0: Incomplete - Need Additional Imaging Evaluation RECOMMENDATION: 1. Assess for dermal lesion and obtain images with dermal marker if applicable. 2. Otherwise, targeted ultrasound left breast. 3. Radiology department staff will contact the patient for additional imaging. This patient's information was entered into a reminder system with a target due date for their next mammogram.
== END 2021-08-22 07:18 | disposition home or self-care (01) ==
LOC: HO.MAMMO 07:17
PROVIDERS: PCP Internal Medicine; Visit Provider Internal Medicine
DX: Z12.31 Encounter for screening mammogram for malignant neoplasm of breast (principal)
CPT/HCPCS: 77063; 77067

== ENCOUNTER 2021-08-27 08:48 | Outpatient (REF) | payer OTHER, SELFPAY ==
--- NOTE | ~2021-08-27 | MM_ITS ---
EXAMINATION: MM DIAGNOSTIC DIGITAL BREAST TOMOSYNTHESIS, LEFT US DIAGNOSTIC ULTRASOUND BREAST, LEFT CLINICAL INFORMATION: Recall from screening for smooth nodule close to skin. 8:00 left breast, possibly dermal. COMPARISON: Mammography: 08/22/2021, 09/29/2019, 09/23/2018 TECHNIQUE: Digital breast tomosynthesis is performed. 2D images are generated from the tomosynthesis. The following views are obtained: CC and MLO views with dermal marker. Ultrasound left breast is targeted to the nodule posterior inferior medial breast. Grayscale imaging and color Doppler are performed without and with harmonics. FINDINGS: There are scattered areas of fibroglandular density (ACR BI-RADS breast composition Category b). Additional views shows the skin marker to overlie the focal nodular density on both views. Clinical inspection suggests intradermal lesion rather than a nevus. Ultrasound demonstrates an avascular intradermal cystic lesion at site of nodularity 8:00 position 16 cm from nipple measuring 4 mm and thickness by 7 x 6 mm across. There is no subdermal extension. No hyperemia around the lesion. No edema tracking in soft tissue planes. Results are discussed with the patient and her business development officer at time of visit. Finding appears to represent a benign-appearing intradermal lesion, likely sebaceous cyst. No breast parenchymal lesion. MM/MM tomosynthesis added views L IMPRESSION: -Nodule on recent mammography corresponds to an intradermal lesion under 1 cm, likely sebaceous cyst. No surrounding hyperemia on color Doppler. ASSESSMENT: BI-RADS 2: Benign RECOMMENDATION: 1. Patient may be managed based on the clinical impression. If the intradermal lesion is increasing, it would be amenable to simple surgical excision. 2. Otherwise, routine annual screening mammography. This patient's information was entered into a reminder system with a target due date for their next mammogram.
== END 2021-08-27 08:49 | disposition home or self-care (01) ==
LOC: HO.MAMMO 08:48
PROVIDERS: PCP Internal Medicine; Visit Provider Internal Medicine
DX: N63.24 Unspecified lump in the left breast, lower inner quadrant (principal)
CPT/HCPCS: 76642; 77061; 77065

== ENCOUNTER 2021-12-22 05:56 | Outpatient (REF) | payer OTHER, SELFPAY ==
[2021-12-22 06:05] LABS: MANUAL DIFF FLAG NO
[2021-12-22 07:30] LABS: Basophils Percent Auto 0.6 % (0-2); Eosinophils Absolute Auto 0.2 X10*3/uL (0.0-0.4); Eosinophils Percent Auto 3.1 % (0-4); Hematocrit 39.1 % (37.0-47.0); Hemoglobin 12.1 g/dl (12.0-16.0); Imm Gran Abs Auto 0.02 X10*3/uL (0.00-0.03); Imm Gran Pct Auto 0.3 % (0.0-0.4); Lymphocytes Absolute Auto 2.4 X10*3/uL (1.2-4.9); Lymphocytes Percent Auto 36.3 % (20-40); Mean Corpuscular HGB Conc 30.9 g/dl (31.0-35.0); Mean Corpuscular Hemoglobin 25.4 pg (27.0-33.0); Mean Platelet Volume 10.3 fL (9.4-12.3); Monocytes Absolute Auto 0.6 X10*3/uL (0.1-1.2); Monocytes Percent Auto 8.8 % (2-11); Neutrophils Absolute Auto 3.4 x10*3/uL (2.0-8.3); Neutrophils Percent Auto 50.9 % (45-73); Platelet Count 211 X10*3/uL (160-400); Red Blood Count 4.77 X10*6/uL (4.20-5.50); Red Cell Distribution Width 16.4 % (11.0-16.0); White Blood Count 6.7 X10*3/uL (4.8-10.8)
[2021-12-22 07:53] LABS: Alanine Aminotransferase 15 U/L (0-31); Albumin Level 3.8 g/dL (3.5-5.0); Alkaline Phosphatase 102 U/L (39-117); Anion Gap 16 (12-20); Aspartate Amino Transferase 13 U/L (5-31); Bilirubin Total 0.5 mg/dL (0.0-1.0); Blood Urea Nitrogen 15 mg/dL (9-16); Calcium 9.6 mg/dL (8.4-10.2); Carbon Dioxide 27 mmol/L (22-29); Chloride 102 mmol/L (96-108); Cholesterol 105 mg/dL; Estimated Glomerular Filt Rate > 60; Glucose Fasting 116 mg/dL (60-99); HDL Cholesterol 34 mg/dL; Iron 60 mcg/dL (30-160); LDL Cholesterol Calculated 60 mg/dl; Percent Iron Saturation 24 % (15-50); Potassium 4.1 mmol/L (3.3-5.1); Sodium 141 mmol/L (135-145); Total Iron Binding Capacity 255 mcg/dL (228-428); Total Protein 6.7 g/dL (6.5-8.0); Triglycerides 55 mg/dL; Unsaturated Iron Binding 195 ug/dL
[2021-12-22 08:19] LABS: Vitamin D 25-OH Total 36.7 ng/mL (>30)
[2021-12-22 08:34] LABS: Folate > 20.0 ng/mL (> or = 4.0); Vitamin B12 1453 pg/mL (200-900)
== END 2021-12-22 05:57 | disposition home or self-care (01) ==
LOC: HO.LAB 05:56
PROVIDERS: PCP Internal Medicine; Visit Provider Internal Medicine
DX: E55.9 Vitamin D deficiency, unspecified (principal); E53.8 Deficiency of other specified B group vitamins; E78.5 Hyperlipidemia, unspecified; E78.00 Pure hypercholesterolemia, unspecified; D64.9 Anemia, unspecified; D50.9 Iron deficiency anemia, unspecified
CPT/HCPCS: 36415; 80053; 80061; 82306; 82607; 82746; 83540; 85025

== ENCOUNTER 2022-04-24 06:06 | Outpatient (REF) | payer OTHER, SELFPAY ==
[2022-04-24 08:18] LABS: Alanine Aminotransferase 12 U/L (0-31); Albumin Level 3.7 g/dL (3.5-5.0); Alkaline Phosphatase 104 U/L (39-117); Anion Gap 15 (12-20); Aspartate Amino Transferase 13 U/L (5-31); Bilirubin Total 0.5 mg/dL (0.0-1.0); Blood Urea Nitrogen 14 mg/dL (9-16); Calcium 9.9 mg/dL (8.4-10.2); Carbon Dioxide 24 mmol/L (22-29); Chloride 105 mmol/L (96-108); Cholesterol 103 mg/dL; Estimated Glomerular Filt Rate > 60; Glucose Fasting 117 mg/dL (60-99); HDL Cholesterol 35 mg/dL; LDL Cholesterol Calculated 56 mg/dl; Sodium 140 mmol/L (135-145); Total Protein 6.5 g/dL (6.5-8.0); Triglycerides 61 mg/dL
[2022-04-24 08:26] LABS: Vitamin D 25-OH Total 40.6 ng/mL (>30)
[2022-04-27 12:44] LABS: NT-proBNP 323 pg/mL
== END 2022-04-24 06:07 | disposition home or self-care (01) ==
LOC: HO.LAB 06:06
PROVIDERS: PCP Internal Medicine; Visit Provider Internal Medicine
DX: I50.9 Heart failure, unspecified (principal); E78.5 Hyperlipidemia, unspecified; E55.9 Vitamin D deficiency, unspecified
CPT/HCPCS: 36415; 80053; 80061; 82306; 83880

== ENCOUNTER → 2022-12-11 23:59 | Outpatient (BNV) | payer OTHER, SELFPAY ==
--- NOTE | 2022-12-28 08:45 | A.OFFVIS_ITS ---
Intake Intake Visit Reasons: Remote Device Check- [facility] Allergies egg [EGG] Adverse Reaction (Intermediate, Verified 04/27/22 08:15) DIARRHEA oats [OATS] Adverse Reaction (Intermediate, Verified 04/27/22 08:15) DIARRHEA FROM OATMEAL Pioglitazone HCl Adverse Reaction (Intermediate, Uncoded 04/27/22 08:15) edema PFSH Medical History (Updated 04/27/22 @ 08:25 by Yoselyn Millan MD) Hearing loss CHF (congestive heart failure) Iron deficiency anemia Left hemiparesis Cardiac pacemaker in situ Diastolic dysfunction Ear discomfort Otitis media Moderate asthma Pure hypercholesterolemia Osteoporosis B12 deficiency Gallstones GERD (gastroesophageal reflux disease) Hypovitaminosis D History of stroke Diabetes mellitus Essential hypertension Surgical History History of pacemaker Family History Father No problems noted. Mother No problems noted. Social History Household Members: Family Housing: Apartment Housing Other:: lives with daughter Are you a primary aged or disabled care worker to a significant other at home: No Do you presently have visiting nurse or other home services: Yes Alcohol intake: never Patient Tobacco Use Status: Former Tobacco user Tobacco use type: Cigarette e-Cigarette/Vaping Use: Never Used Second Hand Smoke Exposure: No Advance Directives Date on File: 07/02/21 service: No Current occupational status: disabled Cognitive needs: Yes (walker) Hearing needs: No Vision needs: Yes (glasses) Office Procedures Cardiac Device Check Cardiac Device Check Details: Remote pacemaker report generated 12/11/2022. Pacemaker function is adequate [id number] Cardiac Device Interrogation, pacemaker Procedure code (CPT) selection complete Coding Level of Care Code Procedure Only CPT Codes Cardiac Device Check - Cardiac Device 12: [id number] Cardiac Device Interrogation, pacemaker ([id number])
== END ==
PROVIDERS: PCP Internal Medicine; Visit Provider Internal Medicine Cardiovascular Disease
DX: I49.5 Sick sinus syndrome (principal); Z95.0 Presence of cardiac pacemaker
CPT/HCPCS: 93294

== ENCOUNTER 2022-12-19 07:05 | Outpatient (REF) | payer OTHER, SELFPAY ==
[2022-12-19 07:41] LABS: MANUAL DIFF FLAG NO
[2022-12-19 08:00] LABS: Basophils Percent Auto 0.5 % (0-2); Eosinophils Absolute Auto 0.2 X10*3/uL (0.0-0.4); Eosinophils Percent Auto 3.5 % (0-4); Hematocrit 40.5 % (37.0-47.0); Hemoglobin 12.5 g/dl (12.0-16.0); Imm Gran Abs Auto 0.02 X10*3/uL (0.00-0.03); Imm Gran Pct Auto 0.3 % (0.0-0.4); Lymphocytes Absolute Auto 1.9 X10*3/uL (1.2-4.9); Lymphocytes Percent Auto 29.4 % (20-40); Mean Corpuscular HGB Conc 30.9 g/dl (31.0-35.0); Mean Corpuscular Hemoglobin 24.5 pg (27.0-33.0); Mean Corpuscular Volume 79.4 fL (80.0-98.0); Monocytes Absolute Auto 0.6 X10*3/uL (0.1-1.2); Monocytes Percent Auto 9.6 % (2-11); Neutrophils Absolute Auto 3.6 x10*3/uL (2.0-8.3); Neutrophils Percent Auto 56.7 % (45-73); Platelet Count 215 X10*3/uL (160-400); Red Cell Distribution Width 15.9 % (11.0-16.0); White Blood Count 6.3 X10*3/uL (4.8-10.8)
[2022-12-19 08:48] LABS: Alanine Aminotransferase 21 U/L (0-31); Albumin Level 3.9 g/dL (3.5-5.0); Alkaline Phosphatase 117 U/L (39-117); Anion Gap 15 (12-20); Aspartate Amino Transferase 18 U/L (5-31); Bilirubin Total 0.4 mg/dL (0.0-1.0); Blood Urea Nitrogen 14 mg/dL (9-16); Calcium 9.6 mg/dL (8.4-10.2); Carbon Dioxide 26 mmol/L (22-29); Chloride 104 mmol/L (96-108); Cholesterol 120 mg/dL (<200); Estimated Glomerular Filt Rate > 60; Glucose Fasting 123 mg/dL (60-99); HDL Cholesterol 40 mg/dL (>40); Iron 61 mcg/dL (30-160); LDL Cholesterol Calculated 69 mg/dL (<100); Percent Iron Saturation 27 % (15-50); Potassium 3.8 mmol/L (3.3-5.1); Sodium 141 mmol/L (135-145); Total Iron Binding Capacity 224 mcg/dL (228-428); Total Protein 7.4 g/dL (6.5-8.0); Triglycerides 59 mg/dL (<150); Unsaturated Iron Binding 163 ug/dL
[2022-12-19 09:02] LABS: Vitamin D 25-OH Total 50.5 ng/mL (>30)
[2022-12-19 09:11] LABS: Folate 14.8 ng/mL (> or = 4.0); Vitamin B12 1313 pg/mL (200-900)
[2022-12-19 10:13] LABS: Creatinine Urine 72.15 mg/dL; Microalbum/Creatinine Ratio Ur 48.5 ug/mg cr (<30)
== END 2022-12-19 07:06 | disposition home or self-care (01) ==
LOC: HO.LAB 07:05
PROVIDERS: PCP Internal Medicine; Visit Provider Internal Medicine
DX: E78.5 Hyperlipidemia, unspecified (principal); D64.9 Anemia, unspecified; E11.9 Type 2 diabetes mellitus without complications; E53.8 Deficiency of other specified B group vitamins; E55.9 Vitamin D deficiency, unspecified
CPT/HCPCS: 36415; 80053; 80061; 82043; 82306; 82570; 82607; 82746; 83540; 85025

== ENCOUNTER 2023-01-07 09:50 | Outpatient (AMB) | payer OTHER, SELFPAY ==
--- NOTE | 2023-01-07 09:55 | A.OFFPC_ITS ---
Vital Signs 01/07/23 10:02 Height 4 ft 11 in Weight 148 lb 12.992 oz BMI 30.1 BP 126/80 Blood Pressure Location Lt brachial Position Sitting Pulse 60 Pulse Source Pulse Oximeter Pulse Oximetry (%) 97 Oxygen Delivery Method Room Air Intake Visit Reasons: Annual Exam Intake Note: Patient here for an annual physical exam Orthotic Practitioner Required: No Accompanied by: daughter in law Allergies egg [EGG] Adverse Reaction (Intermediate, Verified 01/07/23 10:10) DIARRHEA oats [OATS] Adverse Reaction (Intermediate, Verified 01/07/23 10:10) DIARRHEA FROM OATMEAL Pioglitazone HCl Adverse Reaction (Intermediate, Uncoded 01/07/23 10:10) edema Medication List - Last Reconciled 01/07/23 by Yoselyn Millan MD albuterol sulfate 90 mcg/actuation (Ventolin HFA) 2 puffs inhalation Q6H PRN 30 days alendronate (Fosamax) 70 mg PO SHAW amlodipine 10 mg PO DAILY atorvastatin 80 mg PO DAILY blood sugar diagnostic (FreeStyle Lite Strips) Use 1 test strip once a day blood sugar diagnostic (FreeStyle Lite Strips) Use 1 test strip once a day blood-glucose meter (FreeStyle [place] Lite kit) As directed cetirizine 10 mg (10 mL) PO DAILY PRN 30 days citalopram 20 mg PO DAILY 90 days cyanocobalamin (vitamin B-12) (Vitamin B-12) 1,000 mcg PO .three times a week 90 days dicyclomine 20 mg PO TID 30 days doxazosin (Cardura) 2 mg PO DAILY ergocalciferol (vitamin D2) (Vitamin D2) 1,250 mcg PO QWEEK 30 days ferrous sulfate (iron) 325 mg PO BID fluticasone propionate 44 mcg/actuation (Flovent HFA) 2 puffs PO BID folic acid 1 mg PO DAILY 90 days hydralazine 100 mg PO BID loratadine 10 mg PO DAILY losartan 25 mg PO DAILY meclizine 25 mg PO TID PRN 30 days metformin ER 1,000 mg (2 x 500 mg) PO DAILY 90 days metoprolol succinate ER 100 mg PO DAILY 90 days niacin ER 500 mg PO BEDTIME 90 days omeprazole 20 mg PO QAM oxybutynin chloride ER 10 mg PO DAILY promethazine 25 mg PO TID PRN 30 days Tobacco use date assessed: 04/27/22 Fall risk assessment: No Falls in past year Last assessed Fall Risk: 01/07/23 Dental Screening Dental Screen Date: 01/07/23 Did you have a dental visit in the last 12 months?: No Did you have a dental problem in the last 6 months where you did not have access to dental care?: No Was dental information given to patient?: Patient has dentist HPI HPI Comments History of Present Illness Details This is a 77-year-old female with mild major depression and diabetes mellitus type 2 that comes accompanied by daughter in-law which is the polymer specialist for her physical exam. Depression stable with medications. A1c within goal. No chest pain or shortness of breath. Walks with a cane for gait stability. [facility] Medical History (Updated 04/27/22 @ 08:25 by Yoselyn Millan MD) Hearing loss CHF (congestive heart failure) Iron deficiency anemia Left hemiparesis Cardiac pacemaker in situ Diastolic dysfunction Ear discomfort Otitis media Moderate asthma Pure hypercholesterolemia Osteoporosis B12 deficiency Gallstones GERD (gastroesophageal reflux disease) Hypovitaminosis D History of stroke Diabetes mellitus Essential hypertension Surgical History History of pacemaker Family History Father No problems noted. Mother No problems noted. Social History Household Members: Family Housing: Apartment Housing Other:: lives with daughter Are you a primary respite care provider to a significant other at home: No Do you presently have visiting nurse or other home services: Yes Alcohol intake: never Patient Tobacco Use Status: Former Tobacco user Tobacco use type: Cigarette e-Cigarette/Vaping Use: Never Used Second Hand Smoke Exposure: No Advance Directives Date on File: 07/02/21 service: No Current occupational status: disabled Cognitive needs: Yes (walker) Hearing needs: No Vision needs: Yes (glasses) Questionnaire Thrive Questionnaire Date Thrive assessed: 04/27/22 ELBA-7 AMB Questionnaire ELBA-7 Date ELBA - 7 assessed: 04/27/22 Source: Developed by Drs. Prashanth Cuevas, Avelina B.W. Elia Mariano and colleagues, with an educational jayy from [employer]. Review of Systems Const All systems reviewed & are unremarkable except as noted in HPI and below Eyes Reports no additional complaints, Denies change in vision and Denies other visual disturbances Card Denies chest pain at rest, Denies chest pain with activity, Denies edema, Denies irregular heart rhythm, Denies claudication, Denies dyspnea, Denies dyspnea on exertion, Denies orthopnea, Denies paroxysmal nocturnal dyspnea and Denies slow heart rate Resp Denies cough, Denies dyspnea and Denies dyspnea on exertion GI Denies abdominal pain, Denies change in bowel habits, Denies excessive flatus, Denies nausea and Denies vomiting Denies urinary incontinence, Denies urinary hesitancy and Denies urinary urgency Musc Denies abnormal gait, Denies atrophy, Denies deformity and Denies limited range of motion Skin/Breast Denies bleeding lesions, Denies changing lesions and Denies rash Neuro Denies abnormal gait and Denies lack of coordination Physical exam (Primary Care) Vital Signs: Last Vital Signs Pulse 60 01/07/23 10:02 BP 126/80 01/07/23 10:02 Pulse Ox 97 01/07/23 10:02 Oxygen Delivery Method Room Air 01/07/23 10:02 BMI result Body Mass Index 30.1 Tobacco/Smoking Status: Tobacco use Status Tobacco use date assessed 04/27/22 01/07/23 09:58 Patient Tobacco Use Status Former Tobacco user 01/07/23 09:58 Tobacco use type Cigarette 01/07/23 09:58 e-Cigarette/Vaping Use Never Used 01/07/23 09:58 Thrive Assessment: Date of Thrive Assessment Date Thrive assessed 04/27/22 01/07/23 09:58 Const Orientation/consciousness: patient oriented x3 HENMT Head: Yes normal to inspection, Yes normocephalic and Yes atraumatic Ears: external ears normal Eyes General: appearance normal, both eyes and all related structures Eyelids: Yes eyelids normal Conjunctivae: conjunctivae normal Neck Neck: Yes normal visual inspection and Yes supple Resp Effort & Inspection: normal respiratory effort Auscultation: clear to auscultation bilaterally Cardio Jugular venous distension: no JVD Rate: regular rate Rhythm: regular rhythm Heart sounds: S1 normal heart sound present and S2 normal heart sound present GI Inspection: Yes normal to inspection Palpation (GI): Soft to palpation and nontender Auscultation: normal bowel sounds Skin General skin exam: no rashes or lesions noted Neuro General: patient oriented x3 and no focal motor deficits Extrem General: Yes full ROM Psych Appearance: grossly normal Office Procedures Flu Questionnaire Does the patient have a severe egg allergy?: No Does the patient have severe life threatening allergies?: No Does the patient have a fever or illness today?: No Has the patient ever had Guillain-[place] Syndrome?: No Has the patient ever had any past reaction to a flu shot?: No Results AMB Hemoglobin A1c AMB Hemoglobin A1c 6.6 % Last Edit by TREVA Jackson on 01/07/23 10:0 9 Immunizations flu vacc [id number] 6mos up(PF) 60 mcg(15 mcgx4)/0.5 mL IM syringe Performing Provider: Yoselyn Millan MD Performing Location: [facility] Administered by: TREVA Jackson on 01/07/23 10:23 Dose Route Admin Location Dispensed Lot Number Expiration Date NDC Med Admin 0.5 mL IM Left Deltoid 0.5 mL [id number] 09/05/23 [id number] [id number] VIS Given Date VIS Provided VIS Publication Date 01/07/23 Single Vaccine 20 Eligibility Eligibility Date Funding Source Not [facility] Eligible 01/07/23 Private Results Reviewed Results Reviewed: Laboratory Last Values Hgb A1c (Clinic) 6.6 % (4.0-6.0) H 01/07/23 09:54 Assessment and Plan Assessment & Plan (1) Physical exam: Code(s): Z00.00 - Encounter for general adult medical examination without abnormal findings Plan: Repeat in a year (2) Mild recurrent major depression: Code(s): F33.0 - Major depressive disorder, recurrent, mild Plan: Continue citalopram. (3) Diabetes mellitus: Code(s): E11.9 - Type 2 diabetes mellitus without complications Qualifiers: Diabetes mellitus type: type 2 Diabetes mellitus fpc insulin use: without terminal make up operator use Diabetes mellitus complication status: without complication Qualified Code(s): E11.9 - Type 2 diabetes mellitus without complications Plan: Continue metformin. A1c goal is equal or less than 7%. Orders: Orders AMB Hemoglobin A1c Today E11.9 - Type 2 diabetes mellitus without complications Influenza [id number] Immunization Today Z23 - Encounter for immunization XR DEXA axial skeleton Today N95.9 - Unspecified menopausal and perimenopausal disorder Microalbumin, Random (w Creat) 4 Months E11.9 - Type 2 diabetes mellitus without complications Complete Blood Count Auto Diff 4 Months D64.9 - Anemia, unspecified IRON PROFILE 4 Months D64.9 - Anemia, unspecified NT-proBNP 4 Months I50.9 - Heart failure, unspecified Hemoglobin A1c 4 Months E11.40 - Type 2 diabetes mellitus with diabetic neuropathy, unspecified Lipid Panel 4 Months E78.5 - Hyperlipidemia, unspecified Vitamin B12 and Folate 4 Months E53.8 - Deficiency of other specified B group vitamins Vitamin D 25-OH Total 4 Months E55.9 - Vitamin D deficiency, unspecified Comprehensive [place]. Panel Fast 4 Months I50.9 - Heart failure, unspecified Medications: Changed From ferrous sulfate (iron) 325 mg PO BID 60 tabs 6RF To ferrous sulfate (iron) 325 mg PO DAILY 90 days 90 tabs 1RF Coding Level of Care Code Est Pt Prev Care >65y(52405) Diagnoses Physical exam Z00.00 Mild recurrent major depression F33.0 Type 2 diabetes mellitus without complication, without long-term current use of insulin E11.9 Diabetes mellitus type: type 2 Diabetes mellitus terminal make up operator insulin use: without terminal make up operator use Diabetes mellitus complication status: without complication Time Spent (min) 35
[2023-01-07 10:02] VITALS: BP 126/80; PULSE 60; O2SAT 97; BMI 30.1
== END 2023-01-07 10:23 | disposition home or self-care (01) ==
PROVIDERS: PCP Internal Medicine; Visit Provider Internal Medicine
DX: Z00.00 Encounter for general adult medical examination without abnormal findings (principal); F33.0 Major depressive disorder, recurrent, mild; E11.9 Type 2 diabetes mellitus without complications; Z23 Encounter for immunization
CPT/HCPCS: 83036; 90471; 90686; 99397

== ENCOUNTER → 2023-03-12 23:59 | Outpatient (BNV) | payer OTHER, SELFPAY ==
--- NOTE | 2023-03-15 17:55 | A.OFFVIS_ITS ---
Intake Intake Visit Reasons: Remote Device Check- [facility] Allergies egg [EGG] Adverse Reaction (Intermediate, Verified 01/07/23 10:10) DIARRHEA oats [OATS] Adverse Reaction (Intermediate, Verified 01/07/23 10:10) DIARRHEA FROM OATMEAL Pioglitazone HCl Adverse Reaction (Intermediate, Uncoded 01/07/23 10:10) edema PFSH Medical History (Updated 04/27/22 @ 08:25 by Yoselyn Millan MD) Hearing loss CHF (congestive heart failure) Iron deficiency anemia Left hemiparesis Cardiac pacemaker in situ Diastolic dysfunction Ear discomfort Otitis media Moderate asthma Pure hypercholesterolemia Osteoporosis B12 deficiency Gallstones GERD (gastroesophageal reflux disease) Hypovitaminosis D History of stroke Diabetes mellitus Essential hypertension Surgical History History of pacemaker Family History Father No problems noted. Mother No problems noted. Social History Household Members: Family Housing: Apartment Housing Other:: lives with daughter Are you a primary care coordination manager to a significant other at home: No Do you presently have visiting nurse or other home services: Yes Alcohol intake: never Patient Tobacco Use Status: Former Tobacco user Tobacco use type: Cigarette e-Cigarette/Vaping Use: Never Used Second Hand Smoke Exposure: No Advance Directives Date on File: 07/02/21 service: No Current occupational status: disabled Cognitive needs: Yes (walker) Hearing needs: No Vision needs: Yes (glasses) Office Procedures Cardiac Device Check Cardiac Device Check Details: Remote pacemaker report generated 03/12/2023. Pacemaker function is adequate [id number] Cardiac Device Interrogation, pacemaker Procedure code (CPT) selection complete Assessment & Plan Assessment & Plan (1) Cardiac pacemaker in situ: Code(s): Z95.0 - Presence of cardiac pacemaker Plan: See above Coding Level of Care Code Procedure Only Diagnoses Cardiac pacemaker in situ Z95.0 CPT Codes Cardiac Device Check - Cardiac Device 12: [id number] Cardiac Device Interrogation, pacemaker ([id number])
== END ==
PROVIDERS: PCP Internal Medicine; Visit Provider Internal Medicine Cardiovascular Disease
DX: I51.89 Other ill-defined heart diseases (principal); Z95.0 Presence of cardiac pacemaker
CPT/HCPCS: 93294

== ENCOUNTER 2023-05-17 06:12 | Outpatient (REF) | payer OTHER, SELFPAY ==
[2023-05-17 06:29] LABS: MANUAL DIFF FLAG NO
[2023-05-17 07:44] LABS: Basophils Absolute Auto 0.1 X10*3/uL (0.0-0.2); Basophils Percent Auto 0.8 % (0-2); Eosinophils Absolute Auto 0.2 X10*3/uL (0.0-0.4); Eosinophils Percent Auto 2.9 % (0-4); Hematocrit 38.1 % (37.0-47.0); Hemoglobin 11.7 g/dl (12.0-16.0); Imm Gran Abs Auto 0.02 X10*3/uL (0.00-0.03); Imm Gran Pct Auto 0.3 % (0.0-0.4); Lymphocytes Absolute Auto 1.6 X10*3/uL (1.2-4.9); Lymphocytes Percent Auto 25.8 % (20-40); Mean Corpuscular HGB Conc 30.7 g/dl (31.0-35.0); Mean Corpuscular Hemoglobin 24.3 pg (27.0-33.0); Mean Platelet Volume 10.7 fL (9.4-12.3); Monocytes Absolute Auto 0.7 X10*3/uL (0.1-1.2); Monocytes Percent Auto 11.1 % (2-11); Neutrophils Absolute Auto 3.6 x10*3/uL (2.0-8.3); Neutrophils Percent Auto 59.1 % (45-73); Platelet Count 227 X10*3/uL (160-400); Red Blood Count 4.82 X10*6/uL (4.20-5.50); White Blood Count 6.1 X10*3/uL (4.8-10.8)
[2023-05-17 07:49] LABS: Estimated Average Glucose 140 mg/dL; Hemoglobin A1c % 6.5 % (<6.0)
[2023-05-17 08:05] LABS: Creatinine Urine 76.97 mg/dL; Microalbum/Creatinine Ratio Ur 20.7 ug/mg cr (<30)
[2023-05-17 08:14] LABS: Alanine Aminotransferase 20 U/L (0-31); Albumin Level 3.6 g/dL (3.5-5.0); Alkaline Phosphatase 113 U/L (39-117); Anion Gap 12 (12-20); Aspartate Amino Transferase 18 U/L (5-31); Bilirubin Total 0.4 mg/dL (0.0-1.0); Blood Urea Nitrogen 16 mg/dL (9-16); Calcium 9.3 mg/dL (8.4-10.2); Carbon Dioxide 31 mmol/L (22-29); Chloride 103 mmol/L (96-108); Cholesterol 101 mg/dL (<200); Estimated Glomerular Filt Rate > 60; Glucose Fasting 123 mg/dL (60-99); HDL Cholesterol 34 mg/dL (>40); Iron 55 mcg/dL (30-160); LDL Cholesterol Calculated 56 mg/dL (<100); Percent Iron Saturation 24 % (15-50); Potassium 3.8 mmol/L (3.3-5.1); Sodium 142 mmol/L (135-145); Total Iron Binding Capacity 228 mcg/dL (228-428); Total Protein 7.1 g/dL (6.5-8.0); Triglycerides 56 mg/dL (<150); Unsaturated Iron Binding 173 ug/dL
[2023-05-17 08:33] LABS: Vitamin D 25-OH Total 48.1 ng/mL (>30)
[2023-05-17 08:40] LABS: Folate 14.2 ng/mL (> or = 4.0); Vitamin B12 1412 pg/mL (200-900)
[2023-05-20 21:08] LABS: NT-proBNP 628 pg/mL (<450)
== END 2023-05-17 06:13 | disposition home or self-care (01) ==
LOC: HO.LAB 06:12
PROVIDERS: PCP Internal Medicine; Visit Provider Internal Medicine
DX: D64.9 Anemia, unspecified (principal); I50.9 Heart failure, unspecified; E11.40 Type 2 diabetes mellitus with diabetic neuropathy, unspecified; E78.5 Hyperlipidemia, unspecified; E53.8 Deficiency of other specified B group vitamins; E55.9 Vitamin D deficiency, unspecified
CPT/HCPCS: 36415; 80053; 80061; 82043; 82306; 82570; 82607; 82746; 83036; 83540; 83880; 85025

== ENCOUNTER 2023-05-18 09:02 | Outpatient (AMB) | payer OTHER, SELFPAY ==
--- NOTE | 2023-05-18 09:03 | MHC.PC.OV ---
Intake Visit Reasons: dm /[phone] Allergies egg [EGG] Adverse Reaction (Intermediate, Verified 05/18/23 09:07) DIARRHEA oats [OATS] Adverse Reaction (Intermediate, Verified 05/18/23 09:07) DIARRHEA FROM OATMEAL Pioglitazone HCl Adverse Reaction (Intermediate, Uncoded 05/18/23 09:07) edema Medication List - Last Reconciled 05/18/23 by Yoselyn Millan MD albuterol sulfate 90 mcg/actuation (Ventolin HFA) 2 puffs inhalation Q6H PRN 30 days alendronate (Fosamax) 70 mg PO SHAW amlodipine 10 mg PO DAILY atorvastatin 80 mg PO DAILY blood sugar diagnostic (FreeStyle Lite Strips) Use 1 test strip once a day blood sugar diagnostic (FreeStyle Lite Strips) Use 1 test strip once a day blood-glucose meter (FreeStyle [place] Lite kit) As directed cetirizine 10 mg (10 mL) PO DAILY PRN 30 days citalopram 20 mg PO DAILY 90 days cyanocobalamin (vitamin B-12) (Vitamin B-12) 1,000 mcg PO .three times a week 90 days dicyclomine 20 mg PO TID 30 days doxazosin (Cardura) 2 mg PO DAILY ergocalciferol (vitamin D2) (Vitamin D2) 1,250 mcg PO QWEEK 30 days ferrous sulfate (iron) 325 mg PO DAILY 90 days fluticasone propionate 44 mcg/actuation (Flovent HFA) 2 puffs PO BID folic acid 1 mg PO DAILY 90 days hydralazine 100 mg PO BID loratadine 10 mg PO DAILY losartan 25 mg PO DAILY meclizine 25 mg PO TID PRN 30 days metformin ER 1,000 mg (2 x 500 mg) PO DAILY 90 days metoprolol succinate ER 100 mg PO DAILY 90 days niacin ER 500 mg PO BEDTIME 90 days omeprazole 20 mg PO QAM oxybutynin chloride ER 10 mg PO DAILY promethazine 25 mg PO TID PRN 30 days Tobacco use date assessed: 05/18/23 Fall risk assessment: No Falls in past year Last assessed Fall Risk: 05/18/23 Dental Screening Dental Screen Date: 05/18/23 Did you have a dental visit in the last 12 months?: No Did you have a dental problem in the last 6 months where you did not have access to dental care?: No Was dental information given to patient?: No HPI HPI Comments History of Present Illness Details This is a 77-year-old female with diabetes mellitus type 2, hypertension, pure hypercholesterolemia, congestive heart failure and left hemiparesis as a residual deficit due to stroke that has tele health visit by phone for follow-up on her conditions. A1c within goal. LDL within goal. Denies gaining 5 lb in a week. 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 [facility] Medical History (Updated 04/27/22 @ 08:25 by Yoselyn Millan MD) Hearing loss CHF (congestive heart failure) Iron deficiency anemia Left hemiparesis Cardiac pacemaker in situ Diastolic dysfunction Ear discomfort Otitis media Moderate asthma Pure hypercholesterolemia Osteoporosis B12 deficiency Gallstones GERD (gastroesophageal reflux disease) Hypovitaminosis D History of stroke Diabetes mellitus Essential hypertension Surgical History History of pacemaker Family History Father No problems noted. Mother No problems noted. Social History Household Members: Family Housing: Apartment Housing Other:: lives with daughter Are you a primary intensive care unit nurse to a significant other at home: No Do you presently have visiting nurse or other home services: Yes Alcohol intake: never Patient Tobacco Use Status: Former Tobacco user Tobacco use type: Cigarette e-Cigarette/Vaping Use: Never Used Second Hand Smoke Exposure: No Advance Directives Date on File: 07/02/21 service: No Current occupational status: disabled Cognitive needs: Yes (walker) Hearing needs: No Vision needs: Yes (glasses) Questionnaire PHQ-9 Over the last 2 weeks, how often have you been bothered by any of the following problems? 1. Little interest or pleasure in doing things: not at all 2. Feeling down, depressed, or hopeless: not at all 3. Trouble falling or staying asleep, or sleeping too much: not at all 4. Feeling tired or having little energy: not at all 5. Poor appetite or overeating: not at all 6. Feeling bad about yourself - or that you are a failure or have let yourself or your family down: not at all 7. Trouble concentrating on things, such as reading the newspaper or watching television: not at all 8. Moving or speaking so slowly that other people could have noticed. Or the opposite - being so fidgety or restless that you have been moving around a lot more than usual: not at all 9. Thoughts that you would be better off or of hurting yourself in some way: not at all Total score: 0 Depression Screening Interpretation: Negative Depression Screening Done: Yes 84181 - PHQ-9 Billing: Yes Source: Developed by Drs. Prashanth Cuevas, Avelina Mariano, Elia Carney and colleagues, with an educational jayy from [employer] Thrive Questionnaire Date Thrive assessed: 05/18/23 I am a: Patient What is your living situation today?: I have a steady place to live Within the past 12 months, did the food you bought not last and you didn't have the money to get more?: Never true Within the past 12 months, did you worry whether your food would run out before you got money to buy more?: Never true Do you have trouble paying for medicines?: No Do you have trouble getting transportation to medical appointments?: No Do you have trouble paying your heating and electricity bill?: No Do you have trouble taking care of your child, family member or friend?: No Do you have trouble with day-to-day activities such as bathing, preparing meals, shopping, managing finances, etc.?: No Are you currently unemployed and looking for a job?: No Are you interested in more education?: No Currently or been in a relationship where the following occur: no concerns reported THRIVE Score: 0 AUDIT C Alcohol Use Questionnaire (AUDIT-C) 1. How often do you have a drink containing alcohol?: Never Total Score: 0 ELBA-7 AMB Questionnaire ELBA-7 Date ELBA - 7 assessed: 05/18/23 Feeling nervous, anxious, or on edge: 0 = Not at all Not being able to stop or control worryin = Not at all Worrying too much about different things: 0 = Not at all Trouble relaxin = Not at all Being so restless that it is hard to sit still: 0 = Not at all Becoming easily annoyed or irritable: 0 = Not at all Feeling afraid as if something awful might happen: 0 = Not at all Total ELBA-7 score (0-4 normal; 5-9 mild; 10-14 moderate; 15-21 severe): 0 Source: Developed by Drs. Prashanth Cuevas, Avelina Mariano, Elia Carney and colleagues, with an educational jayy from [employer] ELBA-7 Assessment Billing ELBA-7 Assessment Tool: ELBA-7 Assessment 06556 Review of Systems Const All systems reviewed & are unremarkable except as noted in HPI and below Eyes Reports no additional complaints, Denies change in vision and Denies other visual disturbances Card Denies chest pain at rest, Denies chest pain with activity, Denies edema, Denies irregular heart rhythm, Denies claudication, Denies dyspnea, Denies dyspnea on exertion, Denies orthopnea, Denies paroxysmal nocturnal dyspnea and Denies slow heart rate Resp Denies cough, Denies dyspnea and Denies dyspnea on exertion GI Denies abdominal pain, Denies change in bowel habits, Denies excessive flatus, Denies nausea and Denies vomiting Denies urinary incontinence, Denies urinary hesitancy and Denies urinary urgency Musc Denies abnormal gait, Denies atrophy, Denies deformity and Denies limited range of motion Skin/Breast Denies bleeding lesions, Denies changing lesions and Denies rash Neuro Denies abnormal gait, Denies behavioral changes, Denies confusion and Denies lack of coordination Psych Denies behavioral changes and Denies confusion Physical exam (Primary Care) Tobacco/Smoking Status: Tobacco use Status Tobacco use date assessed 05/18/23 05/18/23 09:05 Patient Tobacco Use Status Former Tobacco user 05/18/23 09:03 Tobacco use type Cigarette 05/18/23 09:03 e-Cigarette/Vaping Use Never Used 05/18/23 09:03 PHQ-9: PHQ-9 Score PHQ-9: Total score 0 05/18/23 09:05 Depression Screening Interpretation: Negative Thrive Assessment: Date of Thrive Assessment Date Thrive assessed 05/18/23 05/18/23 09:05 Currently or been in a relationship where the following occur: no concerns reported Const General: No confusion Orientation/consciousness: No confusion Neuro General: No confusion Telehealth Telehealth Location of provider rendering services: practice address Location of patient: address on file Patient Identification confirmed using: Name, : Yes Telehealth method: voice only Patient verbally consented to treatment: Yes Patient verbally consented to billing insurance company: Yes Patient informed of any privacy concerns related to visit: Yes Minutes spent on Phone/Video with Pt.: 15 Assessment and Plan Assessment & Plan (1) Mild recurrent major depression: Code(s): F33.0 - Major depressive disorder, recurrent, mild Plan: Continue citalopram. (2) Diabetes mellitus: Code(s): E11.9 - Type 2 diabetes mellitus without complications Qualifiers: Diabetes mellitus type: type 2 Diabetes mellitus terminal carman insulin use: without half-way use Diabetes mellitus complication status: without complication Qualified Code(s): E11.9 - Type 2 diabetes mellitus without complications Plan: Continue metformin. A1c goal is equal or less than 7%. (3) Essential hypertension: Code(s): I10 - Essential (primary) hypertension Plan: Continue losartan. Blood pressure goal is equal or less than 130/80. (4) Left hemiparesis: Code(s): G81.94 - Hemiplegia, unspecified affecting left nondominant side Plan: Continue the use of a walker for gait stability. (5) Pure hypercholesterolemia: Code(s): E78.00 - Pure hypercholesterolemia, unspecified Plan: Continue statins. LDL goal is less than 70. (6) CHF (congestive heart failure): Code(s): I50.9 - Heart failure, unspecified Plan: Last echocardiogram ejection fraction was 57% with diastolic dysfunction. Has not gain 5 lb in a week which is the goal. Follow-up with Cardiology. Coding Level of Care Code Tele Est Pt Level 4 (67088) Diagnoses Mild recurrent major depression F33.0 Type 2 diabetes mellitus without complication, without long-term current use of insulin E11.9 Diabetes mellitus type: type 2 Diabetes mellitus terminal carman insulin use: without terminal carman use Diabetes mellitus complication status: without complication Essential hypertension I10 Left hemiparesis G81.94 Pure hypercholesterolemia E78.00 CHF (congestive heart failure) I50.9 Additional Codes ELBA-7 Assessment Billing - ELBA-7 Assessment Tool: ELBA-7 Assessment 81607 ([id number]) Time Spent (min) 15
== END 2023-05-18 11:54 | disposition home or self-care (01) ==
LOC: HO.HMGH 09:03
PROVIDERS: PCP Internal Medicine; Visit Provider Internal Medicine
DX: E11.9 Type 2 diabetes mellitus without complications (principal); F33.0 Major depressive disorder, recurrent, mild; I11.0 Hypertensive heart disease with heart failure; I50.9 Heart failure, unspecified; G81.94 Hemiplegia, unspecified affecting left nondominant side; E78.00 Pure hypercholesterolemia, unspecified
CPT/HCPCS: 99442

== ENCOUNTER → 2023-06-11 23:59 | Outpatient (BNV) | payer OTHER, SELFPAY ==
--- NOTE | 2023-06-24 14:54 | MHC.OFFVIS ---
Intake Visit Reasons: Remote device check- [facility] Allergies egg [EGG] Adverse Reaction (Intermediate, Verified 05/18/23 09:07) DIARRHEA oats [OATS] Adverse Reaction (Intermediate, Verified 05/18/23 09:07) DIARRHEA FROM OATMEAL Pioglitazone HCl Adverse Reaction (Intermediate, Uncoded 05/18/23 09:07) edema PFSH Medical History (Updated 04/27/22 @ 08:25 by Yoselyn Millan MD) Hearing loss CHF (congestive heart failure) Iron deficiency anemia Left hemiparesis Cardiac pacemaker in situ Diastolic dysfunction Ear discomfort Otitis media Moderate asthma Pure hypercholesterolemia Osteoporosis B12 deficiency Gallstones GERD (gastroesophageal reflux disease) Hypovitaminosis D History of stroke Diabetes mellitus Essential hypertension Surgical History History of pacemaker Family History Father No problems noted. Mother No problems noted. Social History Household Members: Family Housing: Apartment Housing Other:: lives with daughter Are you a primary career technical counselor to a significant other at home: No Do you presently have visiting nurse or other home services: Yes Alcohol intake: never Patient Tobacco Use Status: Former Tobacco user Tobacco use type: Cigarette e-Cigarette/Vaping Use: Never Used Second Hand Smoke Exposure: No Advance Directives Date on File: 07/02/21 service: No Current occupational status: disabled Cognitive needs: Yes (walker) Hearing needs: No Vision needs: Yes (glasses) Office Procedures Cardiac Device Check Cardiac Device Check Details: Remote pacemaker report generated 06/11/2023. Pacemaker function is adequate. [id number] Cardiac Device Interrogation, pacemaker Procedure code (CPT) selection complete Assessment & Plan Assessment & Plan (1) Cardiac pacemaker in situ: Code(s): Z95.0 - Presence of cardiac pacemaker Category: Medical Plan: See above
== END ==
PROVIDERS: PCP Internal Medicine; Visit Provider Internal Medicine Cardiovascular Disease
DX: Z45.018 Encounter for adjustment and management of other part of cardiac pacemaker (principal)
CPT/HCPCS: 93294

== ENCOUNTER 2023-07-19 20:28 | Inpatient (IN) | payer OTHER, SELFPAY ==
--- NOTE | ~2023-07-19 | XR_ITS ---
EXAMINATION: XR CHEST CLINICAL INFORMATION: CHF COMPARISON: Chest radiograph 07/01/[address] chest 07/03/2019 along with chest radiographs dating back to 12/18/2012 TECHNIQUE: Frontal view of the chest was obtained. FINDINGS: Again seen is mild cardiomegaly with a left chest wall dual lead pacemaker. No gross pulmonary edema is present. Bronchial thickening is present. Increased interstitial markings appear chronic. Some element of mild vascular congestion cannot be entirely excluded. No focal consolidations are seen. No lung masses are seen. No pleural effusions are detected. XR/XR chest 1V IMPRESSION: Cardiomegaly with chronic interstitial changes. No acute intrathoracic disease.
[2023-07-19 20:36] VITALS: BP 133/89; PULSE 79; RESP 22; TEMP 36.9; O2SAT 94; BMI 27.3
--- NOTE | 2023-07-19 20:37 | ECG_ITS ---
Test Reason : SOB Blood Pressure : / mmHG Vent. Rate : 069 BPM Atrial Rate : 069 BPM P-R Int : 130 ms QRS Dur : 076 ms QT Int : 422 ms P-R-T Axes : 000 051 039 degrees QTc Int : 452 ms Normal sinus rhythm Nonspecific ST and T wave abnormality Abnormal ECG When compared with ECG of 01-JUL-2021 19:36, QT has shortened Referred By: Mile Mederos Electronically Signed By:NANCY HARDY MD
--- NOTE | 2023-07-19 20:38 | ED_ITS ---
HPI - SOB/Dyspnea General Chief Complaint: Dyspnea Stated Complaint: sob/asthma Related Data Previous Rx's ?Medication ?Instructions ?Recorded blood-glucose meter (FreeStyle #1 ea 01/03/20 [place] Lite kit) promethazine 25 mg tablet 25 mg PO TID PRN nausea and 04/27/22 vomiting 30 days #10 tabs blood sugar diagnostic (FreeStyle #100 ea 02/04/23 Lite Strips) loratadine 10 mg tablet 10 mg PO DAILY #90 caps 04/05/23 albuterol sulfate 90 mcg/actuation 2 puff inhalation Q6H PRN 07/11/23 aerosol inhaler (Ventolin HFA) bronchospasm 30 days #6.7 grams alendronate 70 mg tablet (Fosamax) 70 mg PO QWEEK 90 days #13 tabs 07/11/23 amlodipine 10 mg tablet 10 mg PO DAILY #90 tabs 07/11/23 atorvastatin 80 mg tablet 80 mg PO DAILY #90 tabs 07/11/23 blood sugar diagnostic (FreeStyle #100 ea 07/11/23 Lite Strips) cetirizine 5 mg/5 mL oral solution 10 mg (10 mL) PO DAILY PRN allergy 07/11/23 symptoms 30 days #150 mL citalopram 20 mg tablet 20 mg PO DAILY 90 days #90 tabs 07/11/23 cyanocobalamin (vitamin B-12) 1,000 mcg PO .three times a week 07/11/23 1,000 mcg tablet (Vitamin B-12) 90 days #36 tabs dicyclomine 20 mg tablet 20 mg PO TID 30 days #90 tabs 07/11/23 doxazosin 2 mg tablet (Cardura) 2 mg PO DAILY #30 tabs 07/11/23 ergocalciferol (vitamin D2) 1,250 1,250 mcg PO QWEEK 30 days #5 caps 07/11/23 mcg (50,000 unit) capsule (Vitamin D2) ferrous sulfate 325 mg (65 mg 325 mg PO DAILY 90 days #90 tabs 07/11/23 iron) tablet (iron) folic acid 1 mg tablet 1 mg PO DAILY 90 days #90 tabs 07/11/23 hydralazine 100 mg tablet 100 mg PO BID #180 caps 07/11/23 losartan 25 mg tablet 25 mg PO DAILY #90 caps 07/11/23 metformin 500 mg tablet,extended 1,000 mg (2 x 500 mg) PO DAILY 90 07/11/23 release 24 hr days #180 tabs metoprolol succinate 100 mg 100 mg PO DAILY 90 days #90 tabs 07/11/23 tablet,extended release 24 hr omeprazole 20 mg capsule,delayed 20 mg PO QAM #30 caps 07/11/23 release oxybutynin chloride 10 mg 10 mg PO DAILY #90 caps 07/11/23 tablet,extended release 24 hr fluticasone propionate 44 2 puff PO BID #31.8 caps 07/19/23 mcg/actuation HFA aerosol inhaler lidocaine 5 % topical patch 1 patch topical DAILY 30 days #30 07/19/23 ea meclizine 25 mg tablet 25 mg PO TID PRN dizziness 30 days 07/19/23 #90 tabs niacin 500 mg tablet,extended 500 mg PO BEDTIME 90 days #90 tabs 07/19/23 release 24 hr Allergies Allergy/AdvReac Type Severity Reaction Status Date / Time egg [EGG] AdvReac Intermediate DIARRHEA Verified 07/19/23 20:39 oats [OATS] AdvReac Intermediate DIARRHEA Verified 07/19/23 20:39 FROM OATMEAL Pioglitazone HCl AdvReac Intermediate edema Uncoded 05/18/23 09:07 [facility] Past Medical History Medical History (Updated 04/27/22 @ 08:25 by Yoselyn Millan MD) Hearing loss CHF (congestive heart failure) Iron deficiency anemia Left hemiparesis Cardiac pacemaker in situ Diastolic dysfunction Ear discomfort Otitis media Moderate asthma Pure hypercholesterolemia Osteoporosis B12 deficiency Gallstones GERD (gastroesophageal reflux disease) Hypovitaminosis D History of stroke Diabetes mellitus Essential hypertension Surgical History History of pacemaker Family History Family History Father No problems noted. Mother No problems noted. Social History Social History Household Members: Family Housing: Apartment Housing Other:: lives with daughter Are you a primary career orientation teacher to a significant other at home: No Do you presently have visiting nurse or other home services: Yes Alcohol intake: never Patient Tobacco Use Status: Former Tobacco user Tobacco use type: Cigarette e-Cigarette/Vaping Use: Never Used Second Hand Smoke Exposure: No Advance Directives Date on File: 07/02/21 Do you have a plan to hurt others: No Plan service: No Current occupational status: disabled Cognitive needs: Yes (walker) Hearing needs: No Vision needs: Yes (glasses) Physical Exam Vital Signs: Vital Signs: Last Vital Signs Temp 98.5 F 07/19/23 20:36 Pulse 79 07/19/23 20:36 Resp 22 H 07/19/23 20:36 BP 133/89 07/19/23 20:36 Pulse Ox 94 07/19/23 20:36 O2 Del Method Room Air 07/19/23 20:36 BMI result Body Mass Index 27.3 Course Course Course Narrative: This is a Rapid Medical Examination (RME) performed by Luis Angel Mederos PA-C in triage. Full HPI, ROS, assessment and treatment plan per primary provider in the Main ED. 78-year-old [place]-speaking female with a history of asthma, CHF, diabetes, cardiac pacemaker, HTN, GERD, CVA who presents to the ER for evaluation of shortness of breath, chest pain, asthma since yesterday. No improvement with her inhalers at home. She has had a productive cough of white phlegm. She has worsening lower extremity edema. Patient reports her chest pain is central and radiates to her bilateral ribs, worse when she is coughing. Patient's daughter reports she is ?not too good at taking her pills? including her diuretics. Vital signs are stable in triage. Patient not in any respiratory distress. No wheezing on exam, she does have crackles at the bilateral bases. Pitting lower extremity edema. Plan: Chest x-ray, EKG, lab workup, viral studies Discharge Plan Discharge Prescriptions: No Action (DME) blood-glucose meter [FreeStyle [place] Lite] Kit See Rx Instructions .ROUTE .MEDSUPPLY Qty: 1 0RF Rx Instructions: As directed (DME) FreeStyle Lite Strips Strip See Rx Instructions .Route Qty: 100 1RF Rx Instructions: Use 1 test strip once a day loratadine 10 mg tablet 10 mg PO DAILY Qty: 90 3RF albuterol sulfate [Ventolin HFA] 90 mcg/actuation HFA aerosol inhaler 2 puff inhalation Q6H PRN (Reason: bronchospasm) 30 Days Qty: 6.7 1RF alendronate [Fosamax] 70 mg tablet 70 mg PO QWEEK 90 Days Qty: 13 1RF amlodipine 10 mg tablet 10 mg PO DAILY Qty: 90 2RF atorvastatin 80 mg tablet 80 mg PO DAILY Qty: 90 2RF (DME) FreeStyle Lite Strips Strip See Rx Instructions .Route Qty: 100 1RF Rx Instructions: Use 1 test strip once a day cetirizine 5 mg/5 mL solution 10 mg PO DAILY PRN (Reason: allergy symptoms) 30 Days Qty: 150 0RF citalopram 20 mg tablet 20 mg PO DAILY 90 Days Qty: 90 0RF cyanocobalamin (vitamin B-12) [Vitamin B-12] 1,000 mcg tablet 1,000 mcg PO .three times a week 90 Days Qty: 36 2RF dicyclomine 20 mg tablet 20 mg PO TID 30 Days Qty: 90 3RF doxazosin [Cardura] 2 mg tablet 2 mg PO DAILY Qty: 30 11RF ergocalciferol (vitamin D2) [Vitamin D2] 1,250 mcg (50,000 unit) capsule 1,250 mcg PO QWEEK 30 Days Qty: 5 6RF ferrous sulfate [iron] 325 mg (65 mg iron) tablet 325 mg PO DAILY 90 Days Qty: 90 1RF folic acid 1 mg tablet 1 mg PO DAILY 90 Days Qty: 90 3RF hydralazine 100 mg tablet 100 mg PO BID Qty: 180 1RF losartan 25 mg tablet 25 mg PO DAILY Qty: 90 1RF metformin 500 mg tablet extended release 24 hr 1,000 mg PO DAILY 90 Days Qty: 180 3RF metoprolol succinate 100 mg tablet extended release 24 hr 100 mg PO DAILY 90 Days Qty: 90 2RF omeprazole 20 mg capsule,delayed release(DR/EC) 20 mg PO QAM Qty: 30 6RF oxybutynin chloride 10 mg tablet extended release 24hr 10 mg PO DAILY Qty: 90 1RF fluticasone propionate 44 mcg/actuation HFA aerosol inhaler 2 puff PO BID Qty: 31.8 6RF meclizine 25 mg tablet 25 mg PO TID PRN (Reason: dizziness) 30 Days Qty: 90 0RF lidocaine 5 % adhesive patch,medicated 1 patch topical DAILY 30 Days Qty: 30 0RF Rx Instructions: leave on most painful area for up to 12 hrs niacin 500 mg tablet extended release 24 hr 500 mg PO BEDTIME 90 Days Qty: 90 0RF promethazine 25 mg tablet 25 mg PO TID PRN (Reason: nausea and vomiting) 30 Days Qty: 10 1RF Print Language: [place]
--- NOTE | 2023-07-19 20:52 | ED.SOB ---
HPI - SOB/Dyspnea General Chief Complaint: Dyspnea Stated Complaint: sob/asthma Time Seen by Provider: 07/19/23 20:44 Source: patient and family Mode of arrival: wheelchair Limitations: no limitations History of Present Illness HPI Narrative: Patient 78 years old with history of hypertension hyperlipidemia diabetes diastolic CHF status post pacemaker CVA with left-sided residual hemiparesis asthma comes here for increased shortness of breath for last 2 days with chest heaviness and increased leg swelling tried her albuterol inhaler without much response patient also feels chest tightness in mid chest since yesterday Related Data Previous Rx's ?Medication ?Instructions ?Recorded blood-glucose meter (FreeStyle #1 ea 01/03/20 [place] Lite kit) promethazine 25 mg tablet 25 mg PO TID PRN nausea and 04/27/22 vomiting 30 days #10 tabs blood sugar diagnostic (FreeStyle #100 ea 02/04/23 Lite Strips) loratadine 10 mg tablet 10 mg PO DAILY #90 caps 04/05/23 albuterol sulfate 90 mcg/actuation 2 puff inhalation Q6H PRN 07/11/23 aerosol inhaler (Ventolin HFA) bronchospasm 30 days #6.7 grams alendronate 70 mg tablet (Fosamax) 70 mg PO QWEEK 90 days #13 tabs 07/11/23 amlodipine 10 mg tablet 10 mg PO DAILY #90 tabs 07/11/23 atorvastatin 80 mg tablet 80 mg PO DAILY #90 tabs 07/11/23 blood sugar diagnostic (FreeStyle #100 ea 07/11/23 Lite Strips) cetirizine 5 mg/5 mL oral solution 10 mg (10 mL) PO DAILY PRN allergy 07/11/23 symptoms 30 days #150 mL citalopram 20 mg tablet 20 mg PO DAILY 90 days #90 tabs 07/11/23 cyanocobalamin (vitamin B-12) 1,000 mcg PO .three times a week 07/11/23 1,000 mcg tablet (Vitamin B-12) 90 days #36 tabs dicyclomine 20 mg tablet 20 mg PO TID 30 days #90 tabs 07/11/23 doxazosin 2 mg tablet (Cardura) 2 mg PO DAILY #30 tabs 07/11/23 ergocalciferol (vitamin D2) 1,250 1,250 mcg PO QWEEK 30 days #5 caps 07/11/23 mcg (50,000 unit) capsule (Vitamin D2) ferrous sulfate 325 mg (65 mg 325 mg PO DAILY 90 days #90 tabs 07/11/23 iron) tablet (iron) folic acid 1 mg tablet 1 mg PO DAILY 90 days #90 tabs 07/11/23 hydralazine 100 mg tablet 100 mg PO BID #180 caps 07/11/23 losartan 25 mg tablet 25 mg PO DAILY #90 caps 07/11/23 metformin 500 mg tablet,extended 1,000 mg (2 x 500 mg) PO DAILY 90 07/11/23 release 24 hr days #180 tabs metoprolol succinate 100 mg 100 mg PO DAILY 90 days #90 tabs 07/11/23 tablet,extended release 24 hr omeprazole 20 mg capsule,delayed 20 mg PO QAM #30 caps 07/11/23 release oxybutynin chloride 10 mg 10 mg PO DAILY #90 caps 07/11/23 tablet,extended release 24 hr fluticasone propionate 44 2 puff PO BID #31.8 caps 07/19/23 mcg/actuation HFA aerosol inhaler lidocaine 5 % topical patch 1 patch topical DAILY 30 days #30 07/19/23 ea meclizine 25 mg tablet 25 mg PO TID PRN dizziness 30 days 07/19/23 #90 tabs niacin 500 mg tablet,extended 500 mg PO BEDTIME 90 days #90 tabs 07/19/23 release 24 hr Allergies Allergy/AdvReac Type Severity Reaction Status Date / Time egg [EGG] AdvReac Intermediate DIARRHEA Verified 07/19/23 20:39 oats [OATS] AdvReac Intermediate DIARRHEA Verified 07/19/23 20:39 FROM OATMEAL Pioglitazone HCl AdvReac Intermediate edema Uncoded 05/18/23 09:07 Review of Systems Review of Systems: Yes all other systems are reviewed and are negative [facility] Past Medical History Medical History Hearing loss CHF (congestive heart failure) Iron deficiency anemia Left hemiparesis Cardiac pacemaker in situ Diastolic dysfunction Ear discomfort Otitis media Moderate asthma Pure hypercholesterolemia Osteoporosis B12 deficiency Gallstones GERD (gastroesophageal reflux disease) Hypovitaminosis D History of stroke Diabetes mellitus Essential hypertension Surgical History History of pacemaker Family History Family History Father No problems noted. Mother No problems noted. Social History Social History Household Members: Family Housing: Apartment Housing Other:: lives with daughter Are you a primary care program resident to a significant other at home: No Do you presently have visiting nurse or other home services: Yes Alcohol intake: never Patient Tobacco Use Status: Former Tobacco user Tobacco use type: Cigarette Smoked in Last 30 Days: No e-Cigarette/Vaping Use: Never Used Second Hand Smoke Exposure: No Use of substances other than those prescribed or required for medical reasons: No Advance Directives: Yes Advance Directives on File: Yes Advance Directives Date on File: 07/02/21 Do you have a plan to hurt others: No Plan service: No Current occupational status: disabled Cognitive needs: Yes (walker) Hearing needs: No Vision needs: Yes (glasses) Physical Exam Vital Signs: Vital Signs: Last Vital Signs Temp 97.7 F 07/20/23 01:54 Pulse 62 07/20/23 01:54 Resp 12 07/20/23 01:54 BP 144/44 H 07/20/23 01:57 Pulse Ox 96 07/20/23 01:54 O2 Del Method Nasal Cannula 07/20/23 01:54 O2 Flow Rate 3 07/20/23 01:54 BMI result Body Mass Index 27.3 Appearance: Alert. Oriented X3. No acute distress. Eyes: No pallor or icterus ENT: Pharynx normal. Oral Mucosa moist Neck: Normal inspection. Neck supple. CVS: Normal heart rate and rhythm. Pulses normal. Respiratory: Mild respiratory distress Equal air entry bilateral, bilateral fine crackles Abdomen: Soft and nontender. Bowel sounds are present, no mass palpable, no CVA tenderness Skin: Skin warm and dry. Normal skin color. Normal skin turgor. Extremities: 2+ lower extremity edema. No calf tenderness Neuro: Oriented X 3. No motor deficit. No sensory deficit.No cerebellar signs , cranial nerves II-XII intact Medications Administered Discontinued Medications Generic Name Dose Route Start Last Admin Trade Name Freq PRN Reason Stop Dose Admin Furosemide 20 mg 07/19/23 20:47 07/19/23 21:08 Furosemide 20 Mg/2 Ml Vial IVPUSH 07/19/23 20:48 20 mg ONCE ONE Administration Protocol Furosemide 40 mg 07/20/23 01:04 07/20/23 01:57 Furosemide 40 Mg/4 Ml Vial IVPUSH 07/20/23 01:05 40 mg ONCE STA Administration Protocol Magnesium Sulfate 2 gm in 50 mls @ 25 mls/hr 07/19/23 23:46 07/20/23 00:02 Magnesium Sulfate/H2o IV 07/20/23 01:45 25 mls/hr ONCE ONE Administration Medical Decision Making Medical Decision Making [facility] Narrative: Patient with asthma and CHF exacerbation with elevated BNP chest x-ray showed pulmonary vascular congestion saturating 88% at room air not on oxygen at home will admit patient for CHF exacerbation patient received IV Lasix and improved during stay in the ER Differential Diagnosis Differential Diagnoses: The differential diagnosis associated with the presentation includes CHF/ACS/pulmonary edema/pneumonia/asthma Admission/Observation Consideration of admission/observation: Escalation of care including admission/observation considered Consult Healthcare Provider Management of the patient was discussed with: Hospitalist Lab Data [facility] Lab Attestation statement: I reviewed the patient's lab results. 07/19/23 21:08 07/19/23 21:08 Labs: Lab Results 07/19/23 07/19/23 07/19/23 Range/Units 21:07 21:08 21:09 WBC 5.9 (4.8-10.8) X10*3/uL RBC 3.93 L (4.20-5.50) X10*6/uL Hgb 9.7 L (12.0-16.0) g/dl Hct 30.7 L (37.0-47.0) % MCV 78.1 L (80.0-98.0) fL MCH 24.7 L (27.0-33.0) pg MCHC 31.6 (31.0-35.0) g/dl RDW 17.1 H (11.0-16.0) % Plt Count 216 (160-400) X10*3/uL MPV 9.8 (9.4-12.3) fL Immature Gran % (Auto) 0.3 (0.0-0.4) % Neut % (Auto) 72.5 (45-73) % Lymph % (Auto) 17.4 L (20-40) % [place] % (Auto) 7.3 (2-11) % Eos % (Auto) 2.0 (0-4) % Baso % (Auto) 0.5 (0-2) % Lymph # (Auto) 1.0 L (1.2-4.9) X10*3/uL [place] # (Auto) 0.4 (0.1-1.2) X10*3/uL Eos # (Auto) 0.1 (0.0-0.4) X10*3/uL Baso # (Auto) 0.0 (0.0-0.2) X10*3/uL Abs Immat Gran (auto) 0.02 (0.00-0.03) X10*3/uL Absolute Neuts (auto) 4.3 (2.0-8.3) x10*3/uL Absolute Nucleated RBC 0.000 (0.0-0.012) X10*3/uL Nucleated RBC % (auto) 0.0 (0.0-0.2) /100WBC Sodium 139 (135-145) mmol/L Potassium 3.6 (3.3-5.1) mmol/L Chloride 101 (96-108) mmol/L Carbon Dioxide 28 (22-29) mmol/L Anion Gap 14 (12-20) BUN 12 (9-16) mg/dL Creatinine 0.80 (0.5-1.4) mg/dL Estim Creat Clear Calc 58.7 Estimated GFR > 60 Random Glucose 166 H (60-115) mg/dL Calcium 9.1 (8.4-10.2) mg/dL Magnesium 1.5 L (1.6-2.6) mg/dL Total Bilirubin 0.7 (0.0-1.0) mg/dL Direct Bilirubin 0.3 (0.0-0.5) mg/dL AST 38 H (5-31) U/L ALT 48 H (0-31) U/L Alkaline Phosphatase 140 H (39-117) U/L Troponin I High Sens 3.3 (<3.5-17.0) ng/L B-Natriuretic Peptide 382 H (<100) pg/mL Total Protein 6.9 (6.5-8.0) g/dL Albumin 3.5 (3.5-5.0) g/dL Urine Color Urine Appearance Urine pH (5.0-9.0) Ur Specific [place] (1.005-1.025) Urine Protein (Neg-Trace) mg/dL Urine Glucose (UA) (Negative) mg/dL Urine Ketones (Negative) mg/dL Urine Blood (Negative) Urine Nitrite (Negative) Ur Leukocyte Esterase (Negative) Urine RBC (0-2) /HPF Urine WBC (0-5) /HPF Ur Squamous Epith Cells (0-2) /HPF Urine Bacteria (None Seen) Hyaline Casts (0-2) /LPF Influenza Type A (PCR) NEGATIVE (Negative) Influenza Type B (PCR) NEGATIVE (Negative) RSV RNA Qual (PCR) NEGATIVE (Negative) SARS-CoV-2 RNA (RT-PCR) NEGATIVE (Negative) 07/19/23 Range/Units 23:03 WBC (4.8-10.8) X10*3/uL RBC (4.20-5.50) X10*6/uL Hgb (12.0-16.0) g/dl Hct (37.0-47.0) % MCV (80.0-98.0) fL MCH (27.0-33.0) pg MCHC (31.0-35.0) g/dl RDW (11.0-16.0) % Plt Count (160-400) X10*3/uL MPV (9.4-12.3) fL Immature Gran % (Auto) (0.0-0.4) % Neut % (Auto) (45-73) % Lymph % (Auto) (20-40) % [place] % (Auto) (2-11) % Eos % (Auto) (0-4) % Baso % (Auto) (0-2) % Lymph # (Auto) (1.2-4.9) X10*3/uL [place] # (Auto) (0.1-1.2) X10*3/uL Eos # (Auto) (0.0-0.4) X10*3/uL Baso # (Auto) (0.0-0.2) X10*3/uL Abs Immat Gran (auto) (0.00-0.03) X10*3/uL Absolute Neuts (auto) (2.0-8.3) x10*3/uL Absolute Nucleated RBC (0.0-0.012) X10*3/uL Nucleated RBC % (auto) (0.0-0.2) /100WBC Sodium (135-145) mmol/L Potassium (3.3-5.1) mmol/L Chloride (96-108) mmol/L Carbon Dioxide (22-29) mmol/L Anion Gap (12-20) BUN (9-16) mg/dL Creatinine (0.5-1.4) mg/dL Estim Creat Clear Calc Estimated GFR Random Glucose (60-115) mg/dL Calcium (8.4-10.2) mg/dL Magnesium (1.6-2.6) mg/dL Total Bilirubin (0.0-1.0) mg/dL Direct Bilirubin (0.0-0.5) mg/dL AST (5-31) U/L ALT (0-31) U/L Alkaline Phosphatase (39-117) U/L Troponin I High Sens (<3.5-17.0) ng/L B-Natriuretic Peptide (<100) pg/mL Total Protein (6.5-8.0) g/dL Albumin (3.5-5.0) g/dL Urine Color Yellow Urine Appearance Clear Urine pH 5.5 (5.0-9.0) Ur Specific [place] 1.010 (1.005-1.025) Urine Protein Negative (Neg-Trace) mg/dL Urine Glucose (UA) Negative (Negative) mg/dL Urine Ketones Negative (Negative) mg/dL Urine Blood Negative (Negative) Urine Nitrite Negative (Negative) Ur Leukocyte Esterase Small (1+) H (Negative) Urine RBC 0-2 (0-2) /HPF Urine WBC 0-5 (0-5) /HPF Ur Squamous Epith Cells 0-2 (0-2) /HPF Urine Bacteria None Seen (None Seen) Hyaline Casts 0-2 (0-2) /LPF Influenza Type A (PCR) (Negative) Influenza Type B (PCR) (Negative) RSV RNA Qual (PCR) (Negative) SARS-CoV-2 RNA (RT-PCR) (Negative) Independent Interpretation I performed an independent interpretation of an: EKG Interpretation: Normal sinus rhythm heart rate 69 beats per minute nonspecific ST T wave changes no acute ischemia Critical Care Time Critical Care Time Critical Care Time: Yes Total Critical Care Time: 45 Attestation: The patient was critically ill with a high probability of imminent or life threatening deterioration. I spent greater than 50minutes of discontinuous time evaluating the patient,delivering critical care at the bedside, discussing and evaluating pertinent data with consultants. Critical care time does not include time spent performing separately billable procedures or teaching. Total time spent performing critical care was 45???minutes. Discharge Plan Discharge Clinical Impression: Acute on chronic combined systolic (congestive) and diastolic (congestive) heart failure, Acute hypoxemic respiratory failure Patient Disposition: Admitted As Inpatient
[2023-07-19 20:55] VITALS: O2SAT 88
[2023-07-19 21:01] VITALS: BP 125/51; PULSE 66; RESP 23; TEMP 36.6; O2SAT 3
[2023-07-19 21:08] VITALS: BP 125/51
[2023-07-19] MEDS: Furosemide 20 MG/2 ML VIAL IVPUSH (21:08)
[2023-07-19 21:13] LABS: MANUAL DIFF FLAG NO
[2023-07-19 21:17] LABS: Basophils Percent Auto 0.5 % (0-2); Eosinophils Absolute Auto 0.1 X10*3/uL (0.0-0.4); Hematocrit 30.7 % (37.0-47.0); Hemoglobin 9.7 g/dl (12.0-16.0); Imm Gran Abs Auto 0.02 X10*3/uL (0.00-0.03); Imm Gran Pct Auto 0.3 % (0.0-0.4); Lymphocytes Percent Auto 17.4 % (20-40); Mean Corpuscular HGB Conc 31.6 g/dl (31.0-35.0); Mean Corpuscular Hemoglobin 24.7 pg (27.0-33.0); Mean Corpuscular Volume 78.1 fL (80.0-98.0); Mean Platelet Volume 9.8 fL (9.4-12.3); Monocytes Absolute Auto 0.4 X10*3/uL (0.1-1.2); Monocytes Percent Auto 7.3 % (2-11); Neutrophils Absolute Auto 4.3 x10*3/uL (2.0-8.3); Neutrophils Percent Auto 72.5 % (45-73); Platelet Count 216 X10*3/uL (160-400); Red Blood Count 3.93 X10*6/uL (4.20-5.50); Red Cell Distribution Width 17.1 % (11.0-16.0); White Blood Count 5.9 X10*3/uL (4.8-10.8)
[2023-07-19 21:31] LABS: Alanine Aminotransferase 48 U/L (0-31); Albumin Level 3.5 g/dL (3.5-5.0); Alkaline Phosphatase 140 U/L (39-117); Anion Gap 14 (12-20); Aspartate Amino Transferase 38 U/L (5-31); Bilirubin Direct 0.3 mg/dL (0.0-0.5); Bilirubin Total 0.7 mg/dL (0.0-1.0); Blood Urea Nitrogen 12 mg/dL (9-16); Calcium 9.1 mg/dL (8.4-10.2); Carbon Dioxide 28 mmol/L (22-29); Chloride 101 mmol/L (96-108); Creatinine Clr Calc Pharmacy 58.7; Estimated Glomerular Filt Rate > 60; Glucose Random 166 mg/dL (60-115); Magnesium 1.5 mg/dL (1.6-2.6); Potassium 3.6 mmol/L (3.3-5.1); Sodium 139 mmol/L (135-145); Total Protein 6.9 g/dL (6.5-8.0)
[2023-07-19 21:38] LABS: B Type Natriuretic Peptide 382 pg/mL (<100)
[2023-07-19 21:38] LABS: Troponin-I High Sensitivity 3.3 ng/L (<3.5-17.0)
[2023-07-19 21:51] LABS: Influenza A PCR NEGATIVE (Negative); Influenza B PCR NEGATIVE (Negative); Resp Syncy Virus RNA Qual PCR NEGATIVE (Negative); SARS COV2 PCR INHOUSE NEGATIVE (Negative)
[2023-07-19 22:40] VITALS: BP 135/54; PULSE 65; RESP 18; TEMP 36.6; O2SAT 95
[2023-07-19 23:09] LABS: Appearance Urine Clear; Color Urine Yellow; Glucose Urine UA Negative (Negative); Leukocyte Esterase Urine Small (1+) (Negative); Nitrite Urine Negative (Negative); PH 5.5 (5.0-9.0); UMIC TRIGGER UACC YES; Urine Blood Negative (Negative); Urine Ketones Negative (Negative); Urine Protein Negative (Neg-Trace)
[2023-07-19 23:16] LABS: Bacteria Urine None Seen (None Seen); Hyaline Casts Urine 0-2 /LPF (0-2); RBC Urine 0-2 /HPF (0-2); Squamous Epithelial Cell Urine 0-2 /HPF (0-2); UACC Culture Trigger YES; WBC Urine 0-5 /HPF (0-5)
[2023-07-20] VITALS (10 sets, daily range): BP systolic 124–150; BP diastolic 44–85; PULSE 60–63; RESP 12–20; TEMP 36–37.2; O2SAT 91–98; BMI 26.2
[2023-07-20] MEDS: Magnesium Sulfate/H2O 2 GM/50 ML PIGGYBACK IV (00:02)
--- NOTE | 2023-07-20 00:30 | P.HPHOSP_ITS ---
History of Present Illness Date of Service: 07/20/23 Attending physician on admission: Louisa Morrell Chief Complaint: Shortness on breath Nedra Razo is 78 years old woman with past medical history significant for HFpEF (EF 57% echo June 2021), COPD -not home O2, type 2 diabetes mellitus, pacemaker implantation essential hypertension and hyperlipidemia presents to the ED complaining of worsening shortness of breath since yesterday associated with dry cough and right-sided chest pain. She also reported swelling to the lower extremities. Denies associated palpitations or dizziness. Denied any acute gastrointestinal or genitourinary symptoms. She has been taking her medications as prescribed and has not missed any dose. In the ED, she was found to have oxygen saturation 88% on room air and currently requiring 2 liters/minute supplemental oxygen via nasal cannula. There is also tachypnea. There is no tachycardia, fever or hypotension. Blood workup was remarkable for anemia of 9.7 (it was 11.7 on May of this year). There is no leukocytosis and platelets are normal. There are no electrolyte imbalances. Creatinine 0.80 and magnesium 1.5. Transaminases and alk-phos are mildly elevated. Bilirubin is normal. BNP is 382. Troponin is 3.3. UA is essentially normal. Viral testing for COVID-19, influenza and RSV is negative. CXR showed cardiomegaly with chronic interstitial changes. ECG showed normal sinus rhythm and nonspecific ST and T-wave changes; QT is shortened. ED tx: Lasix 20 mg IV. Review of Systems 2 Review of Systems: All 12 systems were reviewed and normal except as noted in HPI. [facility] Medical History (Updated 07/20/23 @ 03:35 by Louisa Morrell MD) Acute on chronic diastolic (congestive) heart failure Hearing loss CHF (congestive heart failure) Iron deficiency anemia Left hemiparesis Cardiac pacemaker in situ Diastolic dysfunction Ear discomfort Otitis media Moderate asthma Pure hypercholesterolemia Osteoporosis B12 deficiency Gallstones GERD (gastroesophageal reflux disease) Hypovitaminosis D History of stroke Diabetes mellitus Essential hypertension Family History Father No problems noted. Mother No problems noted. Surgical History History of pacemaker Social History Household Members: Family Housing: Apartment Housing Other:: lives with daughter Are you a primary acute care physician to a significant other at home: No Do you presently have visiting nurse or other home services: Yes Alcohol intake: never Patient Tobacco Use Status: Former Tobacco user Tobacco use type: Cigarette Smoked in Last 30 Days: No e-Cigarette/Vaping Use: Never Used Second Hand Smoke Exposure: No Use of substances other than those prescribed or required for medical reasons: No Advance Directives: Yes Advance Directives on File: Yes Advance Directives Date on File: 07/02/21 Do you have a plan to hurt others: No Plan service: No Current occupational status: disabled Cognitive needs: Yes (walker) Hearing needs: No Vision needs: Yes (glasses) Meds Allergies Allergy/AdvReac Type Severity Reaction Status Date / Time egg [EGG] AdvReac Intermediate DIARRHEA Verified 07/19/23 20:39 oats [OATS] AdvReac Intermediate DIARRHEA Verified 07/19/23 20:39 FROM OATMEAL Pioglitazone HCl AdvReac Intermediate edema Uncoded 05/18/23 09:07 Active Medications: Current Medications Magnesium Sulfate (Magnesium Sulfate/H2o) 2 gm in 50 mls @ 25 mls/hr IV ONCE ONE Stop: 07/20/23 01:45 Last Admin: 07/20/23 00:02 Dose: 25 mls/hr Physical Exam 2 Vital Signs and Narrative: Vital Signs: Last Vital Signs Temp 97.9 F 07/19/23 22:40 Pulse 65 07/19/23 22:40 Resp 18 07/19/23 22:40 BP 135/54 L 07/19/23 22:40 Pulse Ox 95 07/19/23 22:40 O2 Del Method Nasal Cannula 07/19/23 22:40 O2 Flow Rate 3 07/19/23 22:40 BMI result Body Mass Index 27.3 Constitutional - Awake and Alert, No apparent distress. Nasal cannula in place HEENT - Pupils equally round, EOMI. Moist oral mucosa Heart - S1S2, RRR. Lungs - Normal lung expansion, Normal respiratory effort, No respiratory distress. Tachypnea. Bibasilar crackles. No wheezing. No rhonchi. Abdomen - NT / ND; +BS; No rebound or guarding Extremities - Lower extremities pitting edema. Musculoskeletal - Normal inspection, normal ROM Skin - Warm/Dry. Lower extremity excoriation due to scratching Neurological - Alert & oriented x3. No focal weakness grossly noted. Normal speech. Psychological - Appropriate affect Results Labs 07/19/23 21:08 07/19/23 21:08 Labs: Laboratory Results - last 24 hr 07/19/23 07/19/23 07/19/23 21:07 21:08 21:09 MCV 78.1 L MCH 24.7 L MCHC 31.6 RDW 17.1 H Plt Count 216 MPV 9.8 Immature Gran % (Auto) 0.3 Neut % (Auto) 72.5 Lymph % (Auto) 17.4 L [place] % (Auto) 7.3 Eos % (Auto) 2.0 Baso % (Auto) 0.5 Lymph # (Auto) 1.0 L [place] # (Auto) 0.4 Eos # (Auto) 0.1 Baso # (Auto) 0.0 Abs Immat Gran (auto) 0.02 Absolute Neuts (auto) 4.3 Absolute Nucleated RBC 0.000 Nucleated RBC % (auto) 0.0 Anion Gap 14 Estim Creat Clear Calc 58.7 Estimated GFR > 60 Random Glucose 166 H Calcium 9.1 Magnesium 1.5 L Total Bilirubin 0.7 Direct Bilirubin 0.3 AST 38 H ALT 48 H Alkaline Phosphatase 140 H Troponin I High Sens 3.3 B-Natriuretic Peptide 382 H Total Protein 6.9 Albumin 3.5 Urine Color Urine Appearance Urine pH Ur Specific [place] Urine Protein Urine Glucose (UA) Urine Ketones Urine Blood Urine Nitrite Ur Leukocyte Esterase Urine RBC Urine WBC Ur Squamous Epith Cells Urine Bacteria Hyaline Casts Influenza Type A (PCR) NEGATIVE Influenza Type B (PCR) NEGATIVE RSV RNA Qual (PCR) NEGATIVE SARS-CoV-2 RNA (RT-PCR) NEGATIVE 07/19/23 23:03 MCV MCH MCHC RDW Plt Count MPV Immature Gran % (Auto) Neut % (Auto) Lymph % (Auto) [place] % (Auto) Eos % (Auto) Baso % (Auto) Lymph # (Auto) [place] # (Auto) Eos # (Auto) Baso # (Auto) Abs Immat Gran (auto) Absolute Neuts (auto) Absolute Nucleated RBC Nucleated RBC % (auto) Anion Gap Estim Creat Clear Calc Estimated GFR Random Glucose Calcium Magnesium Total Bilirubin Direct Bilirubin AST ALT Alkaline Phosphatase Troponin I High Sens B-Natriuretic Peptide Total Protein Albumin Urine Color Yellow Urine Appearance Clear Urine pH 5.5 Ur Specific [place] 1.010 Urine Protein Negative Urine Glucose (UA) Negative Urine Ketones Negative Urine Blood Negative Urine Nitrite Negative Ur Leukocyte Esterase Small (1+) H Urine RBC 0-2 Urine WBC 0-5 Ur Squamous Epith Cells 0-2 Urine Bacteria None Seen Hyaline Casts 0-2 Influenza Type A (PCR) Influenza Type B (PCR) RSV RNA Qual (PCR) SARS-CoV-2 RNA (RT-PCR) Imaging Radiologist's Impressions: Impressions Chest X-Ray 07/19/23 21:25 IMPRESSION: Cardiomegaly with chronic interstitial changes. No acute intrathoracic disease. Assessment and Plan (1) Acute hypoxemic respiratory failure: Status: Acute (2) Acute on chronic diastolic (congestive) heart failure: Status: Resolved (3) GERD (gastroesophageal reflux disease): Qualifiers: Esophagitis presence: esophagitis presence not specified Qualified Code(s): K21.9 - Gastro-esophageal reflux disease without esophagitis Status: Acute (4) Diabetes mellitus: Qualifiers: Diabetes mellitus type: type 2 Diabetes mellitus terminal operations manager insulin use: without terminal operations manager use Diabetes mellitus complication status: without complication Qualified Code(s): E11.9 - Type 2 diabetes mellitus without complications Status: Acute (5) Essential hypertension: Status: Acute (6) Anemia: Qualifiers: Anemia type: unspecified type Qualified Code(s): D64.9 - Anemia, unspecified Status: Acute Plan Nedra Razo is 78 y/o woman admitted with: * Hypoxic respiratory failure secondary to acute on chronic CHF. Admit to hospitalist service. Telemetry. Pulse oximetry. Supplemental O2 to keep O2 sats > 90%. Continue treatment with Lasix 40 mg IV twice daily. Check TTE. * Worsening microcytic anemia. Hgb 11.7 --> 9.7. Possibly contributing to dyspnea. Continue PPI. Check occult blood test. Continue to monitor H&H. To consider GI consult when respiratory status improves. * Elevated transaminases and alk-phos. Likely secondary to hepatic congestion due to congestive heart failure. * Type 2 diabetes mellitus. Hold metformin. BG checks before meals at bedtime. Insulin sliding scale. * Essential hypertension. Continue metoprolol, losartan and doxazosin. Hold amlodipine to avoid further fluid retention. * Hyperlipidemia. Continue statin. * COPD. Bronchodilator therapy as needed. * Depression. Continue citalopram. * GERD. Continue PPI. Code status: Full DVT prophylaxis: SCDs Patient will need hospitalization for at least 2 midnights for hypoxic respiratory failure treatment with supplemental oxygen and IV diuretics. Patient will also need close monitoring of vital signs and blood workup. Quality Stroke Does the patient have a stroke diagnosis?: No VTE Prior VTE?: No VTE Risk Level:: Medical - moderate - high VTE Device Contraindication: Treatment Not Indicated VTE Drug Contraindication: N/A - Med Ordered
[2023-07-20] MEDS: Furosemide 40 MG/4 ML VIAL IVPUSH ×3 (01:57→17:56)
--- NOTE | 2023-07-20 05:25 | PC.NURSE ---
Addendum entered by Nataly Maguire RN 07/20/23 06:02: patient placed back on 1L n/c to keep o2 at 90% or above, dropped to 88/89% on room air. maintaining 90% on 1L n/c. Original Note: pt arrived to unit via stretcher with daughter. a&ox3, forgetful of time intermittently. patient able to be titrated off o2, maintaining oxygen saturations of 93% and higher on room air. all needs met, call bonilla within reach. safety and comfort maintained.
[2023-07-20] MEDS: Pantoprazole Sodium 40 MG/10 ML VIAL IVPUSH (05:35)
[2023-07-20 06:51] LABS: MANUAL DIFF FLAG NO
[2023-07-20 06:53] LABS: Basophils Percent Auto 0.6 % (0-2); Eosinophils Absolute Auto 0.1 X10*3/uL (0.0-0.4); Eosinophils Percent Auto 2.2 % (0-4); Hematocrit 31.8 % (37.0-47.0); Hemoglobin 10.1 g/dl (12.0-16.0); Imm Gran Abs Auto 0.01 X10*3/uL (0.00-0.03); Imm Gran Pct Auto 0.2 % (0.0-0.4); Lymphocytes Absolute Auto 1.1 X10*3/uL (1.2-4.9); Lymphocytes Percent Auto 20.9 % (20-40); Mean Corpuscular HGB Conc 31.8 g/dl (31.0-35.0); Mean Corpuscular Hemoglobin 24.6 pg (27.0-33.0); Mean Corpuscular Volume 77.4 fL (80.0-98.0); Mean Platelet Volume 9.6 fL (9.4-12.3); Monocytes Absolute Auto 0.5 X10*3/uL (0.1-1.2); Monocytes Percent Auto 9.5 % (2-11); Neutrophils Absolute Auto 3.4 x10*3/uL (2.0-8.3); Neutrophils Percent Auto 66.6 % (45-73); Platelet Count 211 X10*3/uL (160-400); Red Blood Count 4.11 X10*6/uL (4.20-5.50); White Blood Count 5.1 X10*3/uL (4.8-10.8)
--- NOTE | 2023-07-20 07:00 | CA_ITS ---
Transthoracic Echocardiogram Patient (Last, First, Middle): Nedra Drummond, Gender: Female Date of : 1945 Age: 78 Procedure Date: 07/20/2023 Procedure Type: Transthoracic Echocardiogram Location: [facility] Height: 167.64 cm Weight: 73.48 kg BSA: 1.83 m2 Heart Rate: bpm BP: 144 / 44 mmHg Truck Body Builder: GLENDY Referring MD: Louisa Morrell MD Rn Building: Bryn Newell MD Symptoms: acute CHF Study Quality: Adequate ECG Rhythm: Sinus Conclusions: - 1. Normal LV ejection fraction 55-60% with grade 3 diastolic dysfunction 2. No significant abnormality of cardiac valvular Dopplers 3. Moderately elevated right ventricular systolic pressure with mildly elevated right atrial pressures 4. No gross pericardial effusion Findings Left Ventricle Normal left ventricular size, thickness, and systolic function. The visually estimated ejection fraction is between 55-60%. Spectral Doppler is indicative of a restrictive filling pattern. E/E prime ratio is >15, consistent with elevated filling pressures. Evidence suggests grade III (severe) diastolic dysfunction. Peak GLS is -18.8%, within normal limits. Right Ventricle Normal right ventricular cavity size and systolic function. There is a pacemaker wire seen in the right ventricle. Atria The left atrium is likely dilated. There is no evidence of interatrial shunt. The right atrium is normal in size. A pacemaker wire is identified in the right atrium. Aortic Valve There is mild calcification of the aortic valve. There is no aortic valve stenosis. The mean gradient is 5 mmHg. There is no aortic valve regurgitation. Mitral Valve There is mild anterior and posterior mitral leaflet thickening. There is trace mitral valve regurgitation. There is no mitral valve stenosis. Pulmonic Valve The pulmonic valve is likely normal. Tricuspid Valve Normal tricuspid valve structure. There is mild to moderate tricuspid valve regurgitation. Mildly elevated right atrial pressure. Moderate pulmonary hypertension is present. Great Vessels The pulmonary artery was not well visualized. There is no dilatation of the ascending aorta measuring 2.60 cm. Small plaque is seen in the sino tubular ridge and ascending aorta. Venous The inferior vena cava is moderately dilated and collapses less than 50% with inspiration. Pericardium/Pleural There is no evidence of pericardial effusion. Prior Study Comparison Changes noted compared to prior study dated: 07/03/2021. RV systolic pressure is elevated. Diastolic function appears to be grade 3. Measurements 2D Linear Measurements IVSd: 1.15 0.6-0.9/0.6-1.0 cm LVIDd: 4.44 3.9-5.3/4.2-5.9 cm LVIDd Index: 2.43 2.4-3.2/2.2-3.1 cm/m2 LVIDs: 3.45 2.0-3.6 cm LVPWd: 1.16 0.7-1.1 cm LA Diam: 3.90 2.7-3.8/3.0-4.0 cm LAIDs Index: 2.13 1.5-2.3 cm/m2 LV Mass: 228.82 67-162/88-224 g LV Mass Index: 125.04 43-95/49-115 g/m2 LVOT Diam: 1.70 3.0+(-)1.3 cm 2D Systolic Function EF 4C: 58.00 >55% EF 2C: 59.80 >55% EF BiP: 58.40 >55% Mitral Valve MV Pk E: 1.30 MV PK A: 0.66 MV Decel Time: 171.00 E/A: 2.00 E'Lateral: 6.31 E'Medial: 6.31 E/E' Med: 20.60 E/E' Lat: 20.60 PHT: 50.00 MVA PHT: 4.40 Decel Dukes: 7.61 Aortic Valve AoV Pk Filippo: 1.50 AoV Mn Filippo: 1.06 AoV VTI: 0.40 AoV Pk Grad: 9.00 Aov Mn Grad: 5.00 BRITTANEY Cont.VTI: 1.44 LVOT LVOT Pk Filippo: 0.91 LVOT Mn Filippo: 0.69 LVOT VTI: 0.25 LVOT Pk Grad: 3.00 LVOT Mn Grad: 2.00 LVOT Diam: 1.70 LVOT Area: 2.27 Diastolic Function MV Pk E: 1.30 MV Pk A: 0.66 E/A: 2.00 E'Medial: 6.31 E/E' Med: 20.60 E' Laterial: 6.31 E/E' Lat: 20.60 Right Ventricle TAPSE (mm): 19.50 TVS' Filippo: 10.60 Tricuspid Valve TR Pk Filippo: 3.23 TR Pk Grad: 42.00 RA Press: 8.00 RVSP: 50.00 Great Vessels Aorta Sinus of Valsalva: 2.90 2.0-3.5 cm Ao Asc: 2.60 2.1-3.4 cm Pulmonary Valve PV Pk Filippo: 0.91 Peak PV Grad: 3.00 Updated in Other Vendor System with Status of Final Bryn Newell MD electronically signed on 07/20/2023 11:32:08 AM with status of Final
[2023-07-20 07:05] LABS: Anion Gap 15 (12-20); Blood Urea Nitrogen 11 mg/dL (9-16); Calcium 9.2 mg/dL (8.4-10.2); Carbon Dioxide 26 mmol/L (22-29); Chloride 101 mmol/L (96-108); Creatinine Clr Calc Pharmacy 57.5; Estimated Glomerular Filt Rate > 60; Glucose Random 133 mg/dL (60-115); Potassium 3.2 mmol/L (3.3-5.1); Sodium 139 mmol/L (135-145)
[2023-07-20 07:25] LABS: Glucose, Whole Blood 129 mg/dL (60-115)
--- NOTE | 2023-07-20 08:17 | PHA.MEDREC ---
Pharmacy Consult ? Medication Reconciliation Pharmacy has completed the medication reconciliation. Daughter interpreted, and brought home medication list. Home med list matched pharmacy claims to confirm medications. Takes Vit D2 and alendronate on Sundays.
[2023-07-20 09:06] LABS: Magnesium 1.9 mg/dL (1.6-2.6)
[2023-07-20] MEDS: Potassium Chloride Packet 20 MEQ PACKET 40 MEQ PO (10:36)
[2023-07-20] MEDS: Lidocaine 4 % Patch ADH..PATCH 1 PATCH TRANSDERMA (10:36)
[2023-07-20] MEDS: Heparin Sodium,Porcine 5,000 UNIT/ML VIAL 5000 UNIT SUBCUT ×2 (10:36→22:57)
[2023-07-20] MEDS: oxyBUTYnin chloride ER 5 MG TAB.ER.24 10 MG PO (10:37)
[2023-07-20] MEDS: hydrALAZINE HCl 50 MG TABLET 100 MG PO ×2 (10:37→22:53)
[2023-07-20] MEDS: Folic Acid 1 MG TABLET PO (10:37)
[2023-07-20] MEDS: Doxazosin Mesylate 2 MG TABLET PO (10:37)
[2023-07-20] MEDS: Ferrous Sulfate 324 MG TABLET.DR PO (10:38)
[2023-07-20] MEDS: Loratadine 10 MG TABLET PO (10:38)
[2023-07-20] MEDS: amLODIPine Besylate 10 MG TABLET PO (10:38)
[2023-07-20] MEDS: Dicyclomine HCl 10 MG CAPSULE 20 MG PO ×3 (10:38→22:57)
[2023-07-20] MEDS: Metoprolol Succinate ER 100 MG TAB.ER.24H PO (10:38)
[2023-07-20] MEDS: Losartan Potassium 25 MG TABLET PO (10:38)
[2023-07-20] MEDS: Atorvastatin Calcium 80 MG TABLET PO (10:38)
[2023-07-20] MEDS: Escitalopram Oxalate 20 MG TABLET PO (10:39)
[2023-07-20] MEDS: 0.9 % Sodium Chloride Flush 3 ML SYRINGE IVFLUSH ×3 (10:44→22:58)
[2023-07-20] MEDS: Cyanocobalamin (Vitamin B-12) 1,000 MCG TABLET 1000 MCG PO (10:44)
[2023-07-20 11:30] LABS: Glucose, Whole Blood 169 mg/dL (60-115)
[2023-07-20] MEDS: Insulin Lispro 100 UNIT/ML 3 ML VIAL SUBCUT (12:13)
--- NOTE | 2023-07-20 13:41 | PM.EVENT ---
Event Note Date of Service: 07/20/23 Event Note: Day hospitalist update S: This history was taken in Latvian from the patient. Dyspnea improving No chest pain Not lightheaded O: Temp Pulse Resp BP Pulse Ox O2 Del Method O2 Flow Rate 96.8 F 62 20 148/85 H 98 Nasal Cannula 1 07/20/23 11:08 07/20/23 11:08 07/20/23 11:08 07/20/23 11:08 07/20/23 11:08 07/20/23 11:08 07/20/23 11:08 Gen: in no acute distress HEENT: sclera anicteric, moist mucus membranes Neck: supple Lungs: coarse bibasilar inspiratory crackles Heart: regular rate and rhythm, no murmurs Abd: soft, non-tender, non-distended Ext: 1+ BLE edema Skin: warm/well-perfused Neuro: alert and oriented x3, no focal findings Psych: appropriate affect A/P: d1 78yo M acute/chronic HF - continue IV furosemide, monitor BNP/BMP/Mg, wt/I+O, low-sodium diet; negative 850 mL thus far - TTE 07/20/23: 1. Normal LV ejection fraction 55-60% with grade 3 diastolic dysfunction 2. No significant abnormality of cardiac valvular Dopplers 3. Moderately elevated right ventricular systolic pressure with mildly elevated right atrial pressures 4. No gross pericardial effusion AHRF - wean O2 as tolerated hypoK - replete; recheck in AM hypoMg - repleted elevated LFTs - suspected due to hepatic congestion; monitor with diuresis HTN - continue metoprolol succinate, doxazosin, losartan, amlodipine, hydralazine COPD not acutely exacerbating - prn albuterol GERD - PPI depression - escitalopram DM2 - marie-dose lispro SAGAR - check FOBT, monitor H+H VTE ppx - UFH dispo - TBD In my clinical judgment, the patient requires continued hospitalization for the following reasons: IV diuresis, hypoxia Time Spent With Patient Time: Total time managing care of this patient today ____ minutes.
--- NOTE | 2023-07-20 14:16 | MHC.CM.PN ---
IMM 07/19. Pt SSO, forgetful and very hard of hearing. Pt lives at home with her daughter/HCP who will transport home at discharge. Pt receives [facility] RUBB[facility] services through [facility]. Pt uses a cane, walker, and wheelchair. DCP: return home with resumption of previous BED RUBBER services. PCP: Dr. Yoselyn Millan
[2023-07-20 16:02] LABS: Glucose, Whole Blood 123 mg/dL (60-115)
[2023-07-20 21:38] LABS: Glucose, Whole Blood 146 mg/dL (60-115)
[2023-07-21] VITALS (8 sets, daily range): BP systolic 126–155; BP diastolic 61–84; PULSE 59–65; RESP 16–20; TEMP 36.1–36.8; O2SAT 92–96
[2023-07-21] MEDS: Omeprazole 20 MG CAPSULE.DR PO (05:51)
[2023-07-21 06:47] LABS: Hematocrit 31.4 % (37.0-47.0); Mean Corpuscular HGB Conc 31.8 g/dl (31.0-35.0); Mean Corpuscular Hemoglobin 24.4 pg (27.0-33.0); Mean Corpuscular Volume 76.8 fL (80.0-98.0); Mean Platelet Volume 9.6 fL (9.4-12.3); Platelet Count 220 X10*3/uL (160-400); Red Blood Count 4.09 X10*6/uL (4.20-5.50); White Blood Count 5.3 X10*3/uL (4.8-10.8)
[2023-07-21 07:09] LABS: Anion Gap 12 (12-20); Blood Urea Nitrogen 12 mg/dL (9-16); Calcium 9.1 mg/dL (8.4-10.2); Carbon Dioxide 32 mmol/L (22-29); Chloride 98 mmol/L (96-108); Creatinine Clr Calc Pharmacy 49.5; Estimated Glomerular Filt Rate 58; Glucose Random 130 mg/dL (60-115); Magnesium 1.7 mg/dL (1.6-2.6); Potassium 3.4 mmol/L (3.3-5.1); Sodium 139 mmol/L (135-145)
[2023-07-21 07:10] LABS: B Type Natriuretic Peptide 200 pg/mL (<100)
[2023-07-21 08:06] LABS: Glucose, Whole Blood 130 mg/dL (60-115)
[2023-07-21] MEDS: Dicyclomine HCl 10 MG CAPSULE 20 MG PO ×3 (08:33→22:21)
[2023-07-21] MEDS: amLODIPine Besylate 10 MG TABLET PO (08:34)
[2023-07-21] MEDS: Loratadine 10 MG TABLET PO (08:34)
[2023-07-21] MEDS: Atorvastatin Calcium 80 MG TABLET PO (08:34)
[2023-07-21] MEDS: Losartan Potassium 25 MG TABLET PO (08:34)
[2023-07-21] MEDS: oxyBUTYnin chloride ER 5 MG TAB.ER.24 10 MG PO (08:34)
[2023-07-21] MEDS: Folic Acid 1 MG TABLET PO (08:34)
[2023-07-21] MEDS: hydrALAZINE HCl 50 MG TABLET 100 MG PO ×2 (08:34→22:20)
[2023-07-21] MEDS: Ferrous Sulfate 324 MG TABLET.DR PO (08:34)
[2023-07-21] MEDS: Escitalopram Oxalate 20 MG TABLET PO (08:34)
[2023-07-21] MEDS: Metoprolol Succinate ER 100 MG TAB.ER.24H PO (08:34)
[2023-07-21] MEDS: Doxazosin Mesylate 2 MG TABLET PO (08:34)
[2023-07-21] MEDS: Furosemide 40 MG/4 ML VIAL IVPUSH ×2 (08:35→16:07)
[2023-07-21] MEDS: Lidocaine 4 % Patch ADH..PATCH 1 PATCH TRANSDERMA (08:35)
[2023-07-21] MEDS: Heparin Sodium,Porcine 5,000 UNIT/ML VIAL 5000 UNIT SUBCUT ×2 (08:36→22:21)
[2023-07-21] MEDS: 0.9 % Sodium Chloride Flush 3 ML SYRINGE IVFLUSH ×2 (08:36→16:08)
[2023-07-21] MEDS: Cyanocobalamin (Vitamin B-12) 1,000 MCG TABLET 1000 MCG PO (08:48)
[2023-07-21 09:02] LABS: Alanine Aminotransferase 35 U/L (0-31); Albumin Level 3.2 g/dL (3.5-5.0); Alkaline Phosphatase 111 U/L (39-117); Aspartate Amino Transferase 20 U/L (5-31); Bilirubin Direct 0.2 mg/dL (0.0-0.5); Bilirubin Total 0.4 mg/dL (0.0-1.0); Total Protein 6.5 g/dL (6.5-8.0)
[2023-07-21 11:19] LABS: Glucose, Whole Blood 165 mg/dL (60-115)
[2023-07-21] MEDS: Insulin Lispro 100 UNIT/ML 3 ML VIAL SUBCUT (11:33)
--- NOTE | 2023-07-21 12:17 | MHC.CM.PN ---
EMR reviewed and per MD rounds, pt is not medically cleared for discharge due to management of hypoxic respiratory failure and CHF requiring diuresis. Anticipating pt will discharge tomorrow.
--- NOTE | 2023-07-21 12:34 | HO.PM.IMPN ---
Subjective Subjective Date of Service: 07/21/23 Interval History: This history was taken in Turkmen from the patient. Dyspnea improving Legs still swollen No chest pain Review of Systems Review of Systems: Yes all other systems are reviewed and are negative Physical Exam Vital Signs: Vital Signs: Last Vital Signs Temp 96.9 F 07/21/23 11:10 Pulse 62 07/21/23 11:10 Resp 19 07/21/23 11:10 BP 126/73 07/21/23 11:10 Pulse Ox 95 07/21/23 11:10 O2 Del Method Nasal Cannula 07/21/23 11:10 O2 Flow Rate 1 07/21/23 11:10 BMI result Body Mass Index 26.2 Gen: in no acute distress HEENT: sclera anicteric, moist mucus membranes Neck: supple Lungs: coarse bibasilar inspiratory crackles Heart: regular rate and rhythm, no murmurs Abd: soft, non-tender, non-distended Ext: 1+ BLE edema Skin: warm/well-perfused Neuro: alert and oriented x3, no focal findings Psych: appropriate affect Objective Data Active Medications Acetaminophen (Acetaminophen 325 Mg Tablet) 650 mg PO Q6H PRN PRN Reason: Fever, Headache, Mild Pain 1-3 Albuterol Sulfate (Albuterol Sulfate (0.083%) 2.5 Mg/3 Ml Vial.Neb) 2.5 mg INHALE Q2H PRN PRN Reason: Shortness of Breath/Wheezing Albuterol Sulfate (Albuterol Sulfate 90 Mcg 8 Gm Inhaler) 2 puff INHALE RQ6H PRN PRN Reason: bronchospasm Amlodipine Besylate (Amlodipine Besylate 10 Mg Tablet) 10 mg PO DAILY [facility]; Protocol Last Admin: 07/21/23 08:34 Dose: 10 mg Documented By: OWEN Atorvastatin Calcium (Atorvastatin Calcium 80 Mg Tablet) 80 mg PO DAILY [facility] Last Admin: 07/21/23 08:34 Dose: 80 mg Documented By: OWEN Calcium Carbonate (Calcium Carbonate 750 Mg Tab.Chew) 750 mg PO Q6H PRN PRN Reason: Heartburn Cyanocobalamin (Cyanocobalamin (Vitamin B-12) 1,000 Mcg Tablet) 1,000 mcg PO SuWeFr [facility] Last Admin: 07/21/23 08:48 Dose: 1,000 mcg Documented By: OWEN Dicyclomine HCl (Dicyclomine Hcl 10 Mg Capsule) 20 mg PO TID [facility] Last Admin: 07/21/23 08:33 Dose: 20 mg Documented By: OWEN Doxazosin Mesylate (Doxazosin Mesylate 2 Mg Tablet) 2 mg PO DAILY [facility]; Protocol Last Admin: 07/21/23 08:34 Dose: 2 mg Documented By: OWEN Ergocalciferol (Ergocalciferol (Vitamin D2) 1,250 Mcg Capsule) 1,250 mcg PO [facility] Escitalopram Oxalate (Escitalopram Oxalate 20 Mg Tablet) 20 mg PO DAILY [facility] Last Admin: 07/21/23 08:34 Dose: 20 mg Documented By: OWEN Ferrous Sulfate (Ferrous Sulfate 324 Mg Tablet.Dr) 324 mg PO DAILY [facility] Last Admin: 07/21/23 08:34 Dose: 324 mg Documented By: OWEN Folic Acid (Folic Acid 1 Mg Tablet) 1 mg PO DAILY [facility] Last Admin: 07/21/23 08:34 Dose: 1 mg Documented By: OWEN Furosemide (Furosemide 40 Mg/4 Ml Vial) 40 mg IVPUSH BID@0900,1700 [facility]; Protocol Last Admin: 07/21/23 08:35 Dose: 40 mg Documented By: OWEN Glucose (Glucose Gel 15 Gm Gel..Gram.) 15 gm PO Q15M PRN; Protocol PRN Reason: per Hypoglycemia Standing Ord. Heparin Sodium (Porcine) (Heparin Sodium,Porcine 5,000 Unit/Ml Vial) 5,000 unit SUBCUT Q12H [facility] Last Admin: 07/21/23 08:36 Dose: 5,000 unit Documented By: OWEN Hydralazine HCl (Hydralazine Hcl 50 Mg Tablet) 100 mg PO BID [facility]; Protocol Last Admin: 07/21/23 08:34 Dose: 100 mg Documented By: OWEN Dextrose (D10) 250 mls @ 750 mls/hr IV Q15M PRN; Protocol PRN Reason: per Hypoglycemia Standing Ord. Insulin Human Lispro (Insulin Lispro 100 Unit/Ml 3 Ml Vial) 0 unit SUBCUT QIDACHS [facility]; Protocol Last Admin: 07/21/23 11:33 Dose: 2 unit Documented By: OWEN Lidocaine (Lidocaine 4 % Patch Adh..Patch) 1 patch TRANSDERMA DAILY [facility] Last Admin: 07/21/23 08:35 Dose: 1 patch Documented By: OWEN Loratadine (Loratadine 10 Mg Tablet) 10 mg PO DAILY [facility] Last Admin: 07/21/23 08:34 Dose: 10 mg Documented By: OWEN Losartan Potassium (Losartan Potassium 25 Mg Tablet) 25 mg PO DAILY [facility]; Protocol Last Admin: 07/21/23 08:34 Dose: 25 mg Documented By: OWEN Magnesium Hydroxide (Milk Of Magnesia 30 Ml Oral.Susp) 30 ml PO DAILY PRN PRN Reason: Constipation Meclizine HCl (Meclizine Hcl 25 Mg Tablet) 25 mg PO TID PRN PRN Reason: dizziness Melatonin (Melatonin 3 Mg Tablet) 6 mg PO BEDTIME PRN PRN Reason: Insomnia Metoprolol Succinate (Metoprolol Succinate Er 100 Mg Tab.Er.24h) 100 mg PO DAILY [facility]; Protocol Last Admin: 07/21/23 08:34 Dose: 100 mg Documented By: OWEN Non-Formulary Medication (Fluticasone Propionate) 2 puff PO BID [facility] Omeprazole (Omeprazole 20 Mg Capsule.Dr) 20 mg PO DAILY@0630 [facility] Last Admin: 07/21/23 05:51 Dose: 20 mg Documented By: YAMILET Oxybutynin Chloride (Oxybutynin Chloride Er 5 Mg Tab.Er.24) 10 mg PO DAILY [facility] Last Admin: 07/21/23 08:34 Dose: 10 mg Documented By: OWEN Polyethylene Glycol (Polyethylene Glycol 3350 17 Gm Powd.Pack) 17 gm PO DAILY PRN PRN Reason: Constipation Promethazine HCl (Promethazine Hcl 25 Mg Tablet) 25 mg PO TID PRN PRN Reason: nausea and vomiting Sodium Chloride (0.9 % Sodium Chloride Flush 3 Ml Syringe) 3 ml IVFLUSH QSHIFT [facility] Last Admin: 07/21/23 08:36 Dose: 3 ml Documented By: OWEN Labs 07/21/23 06:27 07/21/23 06:27 Labs: Laboratory Results - last 24 hr 07/20/23 07/20/23 07/21/23 15:57 21:34 06:27 MCV 76.8 L MCH 24.4 L MCHC 31.8 RDW 17.0 H Plt Count 220 MPV 9.6 Absolute Nucleated RBC 0.000 Nucleated RBC % (auto) 0.0 Anion Gap 12 Estim Creat Clear Calc 49.5 Estimated GFR 58 POC Glucose 123 H 146 H Random Glucose 130 H Calcium 9.1 Magnesium 1.7 Total Bilirubin 0.4 Direct Bilirubin 0.2 AST 20 ALT 35 H Alkaline Phosphatase 111 B-Natriuretic Peptide 200 H Total Protein 6.5 Albumin 3.2 L 07/21/23 07/21/23 07:58 11:12 MCV MCH MCHC RDW Plt Count MPV Absolute Nucleated RBC Nucleated RBC % (auto) Anion Gap Estim Creat Clear Calc Estimated GFR POC Glucose 130 H 165 H Random Glucose Calcium Magnesium Total Bilirubin Direct Bilirubin AST ALT Alkaline Phosphatase B-Natriuretic Peptide Total Protein Albumin Microbiology Microbiology Results: Microbiology 07/19/23 Unknown Urine Culture - Final Urine clean catch - Urine brian top No growth. Assessment and Plan (1) Acute hypoxemic respiratory failure: Status: Acute (2) CHF (congestive heart failure): Status: Acute Plan d2 78yo F with HFpEF, COPD not on home O2, Dm2, PPM, HTN, HLD presenting with 1d of worsening dyspnea and cough, admitted for hypoxia due to CHF exacerbation acute/chronic HF severe diastolic dysfunction - continue IV furosemide, monitor BNP/BMP/Mg, wt/I+O, low-sodium diet; negative 2290 mL thus far - TTE 07/20/23: 1. Normal LV ejection fraction 55-60% with grade 3 diastolic dysfunction 2. No significant abnormality of cardiac valvular Dopplers 3. Moderately elevated right ventricular systolic pressure with mildly elevated right atrial pressures 4. No gross pericardial effusion AHRF - wean O2 as tolerated hypoK - repleted hypoMg - repleted elevated LFTs - suspected due to hepatic congestion; improved with diuresis HTN - continue metoprolol succinate, doxazosin, losartan, amlodipine, hydralazine COPD not acutely exacerbating - prn albuterol GERD - PPI depression - escitalopram DM2 - marie-dose lispro SAGAR - check FOBT, monitor H+H, continue iron supplementatino VTE ppx - UFH dispo - PT eval requested In my clinical judgment, the patient requires continued hospitalization for the following reasons: IV diuresis, hypoxia Total time managing care of this patient today: 35 minutes. Quality Stroke Does the patient have a stroke diagnosis?: No VTE Prior VTE?: No VTE Risk Level:: Medical - moderate - high VTE Device Contraindication: Treatment Not Indicated VTE Drug Contraindication: N/A - Med Ordered
[2023-07-21 16:15] LABS: Glucose, Whole Blood 106 mg/dL (60-115)
[2023-07-21 20:19] LABS: Glucose, Whole Blood 164 mg/dL (60-115)
[2023-07-22] VITALS (7 sets, daily range): BP systolic 112–147; BP diastolic 56–64; PULSE 60–62; RESP 16–20; TEMP 36.4–36.9; O2SAT 90–97
[2023-07-22] MEDS: 0.9 % Sodium Chloride Flush 3 ML SYRINGE IVFLUSH ×4 (00:58→20:47)
[2023-07-22] MEDS: Omeprazole 20 MG CAPSULE.DR PO (06:09)
[2023-07-22 06:25] LABS: Anion Gap 15 (12-20); Blood Urea Nitrogen 16 mg/dL (9-16); Calcium 9.2 mg/dL (8.4-10.2); Carbon Dioxide 33 mmol/L (22-29); Chloride 95 mmol/L (96-108); Creatinine Clr Calc Pharmacy 43.4; Estimated Glomerular Filt Rate 50; Glucose Random 125 mg/dL (60-115); Magnesium 1.6 mg/dL (1.6-2.6); Potassium 3.3 mmol/L (3.3-5.1); Sodium 140 mmol/L (135-145)
[2023-07-22 06:55] LABS: B Type Natriuretic Peptide 225 pg/mL (<100)
[2023-07-22 08:01] LABS: Glucose, Whole Blood 130 mg/dL (60-115)
[2023-07-22] MEDS: Furosemide 40 MG/4 ML VIAL IVPUSH ×2 (09:55→17:42)
[2023-07-22] MEDS: Dicyclomine HCl 10 MG CAPSULE 20 MG PO ×3 (09:55→20:42)
[2023-07-22] MEDS: amLODIPine Besylate 10 MG TABLET PO (09:55)
[2023-07-22] MEDS: Doxazosin Mesylate 2 MG TABLET PO (09:55)
[2023-07-22] MEDS: oxyBUTYnin chloride ER 5 MG TAB.ER.24 10 MG PO (09:55)
[2023-07-22] MEDS: Folic Acid 1 MG TABLET PO (09:55)
[2023-07-22] MEDS: Loratadine 10 MG TABLET PO (09:56)
[2023-07-22] MEDS: Heparin Sodium,Porcine 5,000 UNIT/ML VIAL 5000 UNIT SUBCUT ×2 (09:56→20:41)
[2023-07-22] MEDS: Ferrous Sulfate 324 MG TABLET.DR PO (09:56)
[2023-07-22] MEDS: Losartan Potassium 25 MG TABLET PO (09:56)
[2023-07-22] MEDS: hydrALAZINE HCl 50 MG TABLET 100 MG PO ×2 (09:56→20:42)
[2023-07-22] MEDS: Escitalopram Oxalate 20 MG TABLET PO (09:56)
[2023-07-22] MEDS: Atorvastatin Calcium 80 MG TABLET PO (09:56)
[2023-07-22] MEDS: Metoprolol Succinate ER 100 MG TAB.ER.24H PO (09:56)
[2023-07-22] MEDS: Lidocaine 4 % Patch ADH..PATCH 1 PATCH TRANSDERMA (09:57)
--- NOTE | 2023-07-22 10:49 | P.PNIM_ITS ---
Subjective Subjective Date of Service: 07/22/23 Interval History: This history was taken in Lithuanian from the patient. Still a little short of breath though improved. Legs less swollen. Review of Systems Review of Systems: Yes all other systems are reviewed and are negative Physical Exam 2 Vital Signs: Vital Signs: Last Vital Signs Temp 98.0 F 07/22/23 08:00 Pulse 60 07/22/23 08:00 Resp 20 07/22/23 08:00 BP 136/61 07/22/23 08:00 Pulse Ox 95 07/22/23 08:00 O2 Del Method Nasal Cannula 07/22/23 08:00 O2 Flow Rate 1 07/22/23 08:00 BMI result Body Mass Index 26.2 Gen: in no acute distress HEENT: sclera anicteric, moist mucus membranes Neck: supple, JVD present Lungs: diminished bilaterally Heart: regular rate and rhythm, no murmurs Abd: soft, non-tender, non-distended Ext: 1+ BLE edema Skin: warm/well-perfused Neuro: alert and oriented x3, no focal findings Psych: appropriate affect Objective Data Active Medications Acetaminophen (Acetaminophen 325 Mg Tablet) 650 mg PO Q6H PRN PRN Reason: Fever, Headache, Mild Pain 1-3 Albuterol Sulfate (Albuterol Sulfate (0.083%) 2.5 Mg/3 Ml Vial.Neb) 2.5 mg INHALE Q2H PRN PRN Reason: Shortness of Breath/Wheezing Albuterol Sulfate (Albuterol Sulfate 90 Mcg 8 Gm Inhaler) 2 puff INHALE RQ6H PRN PRN Reason: bronchospasm Amlodipine Besylate (Amlodipine Besylate 10 Mg Tablet) 10 mg PO DAILY [facility]; Protocol Last Admin: 07/22/23 09:55 Dose: 10 mg Documented By: HEATHER Atorvastatin Calcium (Atorvastatin Calcium 80 Mg Tablet) 80 mg PO DAILY [facility] Last Admin: 07/22/23 09:56 Dose: 80 mg Documented By: HEATHER Calcium Carbonate (Calcium Carbonate 750 Mg Tab.Chew) 750 mg PO Q6H PRN PRN Reason: Heartburn Cyanocobalamin (Cyanocobalamin (Vitamin B-12) 1,000 Mcg Tablet) 1,000 mcg PO SuWeFr [facility] Last Admin: 07/21/23 08:48 Dose: 1,000 mcg Documented By: OWEN Dicyclomine HCl (Dicyclomine Hcl 10 Mg Capsule) 20 mg PO TID [facility] Last Admin: 07/22/23 09:55 Dose: 20 mg Documented By: HEATHER Doxazosin Mesylate (Doxazosin Mesylate 2 Mg Tablet) 2 mg PO DAILY [facility]; Protocol Last Admin: 07/22/23 09:55 Dose: 2 mg Documented By: HEATHER Ergocalciferol (Ergocalciferol (Vitamin D2) 1,250 Mcg Capsule) 1,250 mcg PO [facility] Escitalopram Oxalate (Escitalopram Oxalate 20 Mg Tablet) 20 mg PO DAILY [facility] Last Admin: 07/22/23 09:56 Dose: 20 mg Documented By: HEATHER Ferrous Sulfate (Ferrous Sulfate 324 Mg Tablet.Dr) 324 mg PO DAILY [facility] Last Admin: 07/22/23 09:56 Dose: 324 mg Documented By: HEATHER Folic Acid (Folic Acid 1 Mg Tablet) 1 mg PO DAILY [facility] Last Admin: 07/22/23 09:55 Dose: 1 mg Documented By: HEATHER Furosemide (Furosemide 40 Mg/4 Ml Vial) 40 mg IVPUSH BID@0900,1700 [facility]; Protocol Last Admin: 07/22/23 09:55 Dose: 40 mg Documented By: HEATHER Glucose (Glucose Gel 15 Gm Gel..Gram.) 15 gm PO Q15M PRN; Protocol PRN Reason: per Hypoglycemia Standing Ord. Heparin Sodium (Porcine) (Heparin Sodium,Porcine 5,000 Unit/Ml Vial) 5,000 unit SUBCUT Q12H [facility] Last Admin: 07/22/23 09:56 Dose: 5,000 unit Documented By: HEATHER Hydralazine HCl (Hydralazine Hcl 50 Mg Tablet) 100 mg PO BID [facility]; Protocol Last Admin: 07/22/23 09:56 Dose: 100 mg Documented By: HEATHER Dextrose (D10) 250 mls @ 750 mls/hr IV Q15M PRN; Protocol PRN Reason: per Hypoglycemia Standing Ord. Insulin Human Lispro (Insulin Lispro 100 Unit/Ml 3 Ml Vial) 0 unit SUBCUT QIDACHS [facility]; Protocol Last Admin: 07/22/23 08:10 Dose: Not Given Documented By: SHANTEL Non-Admin Reason: No Insulin Coverage Lidocaine (Lidocaine 4 % Patch Adh..Patch) 1 patch TRANSDERMA DAILY [facility] Last Admin: 07/22/23 09:57 Dose: 1 patch Documented By: HEATHER Loratadine (Loratadine 10 Mg Tablet) 10 mg PO DAILY [facility] Last Admin: 07/22/23 09:56 Dose: 10 mg Documented By: HEATHER Losartan Potassium (Losartan Potassium 25 Mg Tablet) 25 mg PO DAILY [facility]; Protocol Last Admin: 07/22/23 09:56 Dose: 25 mg Documented By: HEATHER Magnesium Hydroxide (Milk Of Magnesia 30 Ml Oral.Susp) 30 ml PO DAILY PRN PRN Reason: Constipation Meclizine HCl (Meclizine Hcl 25 Mg Tablet) 25 mg PO TID PRN PRN Reason: dizziness Melatonin (Melatonin 3 Mg Tablet) 6 mg PO BEDTIME PRN PRN Reason: Insomnia Metoprolol Succinate (Metoprolol Succinate Er 100 Mg Tab.Er.24h) 100 mg PO DAILY [facility]; Protocol Last Admin: 07/22/23 09:56 Dose: 100 mg Documented By: HEATHER Non-Formulary Medication (Fluticasone Propionate) 2 puff PO BID [facility] Omeprazole (Omeprazole 20 Mg Capsule.Dr) 20 mg PO DAILY@0630 [facility] Last Admin: 07/22/23 06:09 Dose: 20 mg Documented By: DIDIER Oxybutynin Chloride (Oxybutynin Chloride Er 5 Mg Tab.Er.24) 10 mg PO DAILY [facility] Last Admin: 07/22/23 09:55 Dose: 10 mg Documented By: HEATHER Polyethylene Glycol (Polyethylene Glycol 3350 17 Gm Powd.Pack) 17 gm PO DAILY PRN PRN Reason: Constipation Promethazine HCl (Promethazine Hcl 25 Mg Tablet) 25 mg PO TID PRN PRN Reason: nausea and vomiting Sodium Chloride (0.9 % Sodium Chloride Flush 3 Ml Syringe) 3 ml IVFLUSH QSHIFT [facility] Last Admin: 07/22/23 09:58 Dose: 3 ml Documented By: HEATHER Labs 07/21/23 06:27 07/22/23 05:37 Labs: Laboratory Results - last 24 hr 07/21/23 07/21/23 07/21/23 11:12 16:03 20:14 Anion Gap Estim Creat Clear Calc Estimated GFR POC Glucose 165 H 106 164 H Random Glucose Calcium Magnesium B-Natriuretic Peptide 07/22/23 07/22/23 05:37 07:52 Anion Gap 15 Estim Creat Clear Calc 43.4 Estimated GFR 50 POC Glucose 130 H Random Glucose 125 H Calcium 9.2 Magnesium 1.6 B-Natriuretic Peptide 225 H Microbiology Microbiology Results: Microbiology 07/19/23 Unknown Urine Culture - Final Urine clean catch - Urine brian top No growth. Assessment and Plan (1) Acute hypoxemic respiratory failure: Status: Acute (2) CHF (congestive heart failure): Status: Acute Plan d3 78yo F with HFpEF, COPD not on home O2, Dm2, PPM, HTN, HLD presenting with 1d of worsening dyspnea and cough, admitted for hypoxia due to CHF exacerbation acute/chronic HF severe diastolic dysfunction - continue IV furosemide, monitor BNP/BMP/Mg, wt/I+O, low-sodium diet; negative 2890 mL thus far - TTE 07/20/23: 1. Normal LV ejection fraction 55-60% with grade 3 diastolic dysfunction 2. No significant abnormality of cardiac valvular Dopplers 3. Moderately elevated right ventricular systolic pressure with mildly elevated right atrial pressures 4. No gross pericardial effusion AHRF - wean O2 as tolerated hypoK - repleted hypoMg - repleted elevated LFTs - suspected due to hepatic congestion; improved with diuresis HTN - continue metoprolol succinate, doxazosin, losartan, amlodipine, hydralazine COPD not acutely exacerbating - prn albuterol GERD - PPI depression - escitalopram DM2 - marie-dose lispro SAGAR - check FOBT, monitor H+H, continue iron supplementatino VTE ppx - UFH dispo - PT eval requested In my clinical judgment, the patient requires continued hospitalization for the following reasons: IV diuresis, hypoxia Total time managing care of this patient today: 35 minutes. Quality Stroke Does the patient have a stroke diagnosis?: No VTE Prior VTE?: No VTE Risk Level:: Medical - moderate - high VTE Device Contraindication: Treatment Not Indicated VTE Drug Contraindication: N/A - Med Ordered
[2023-07-22 11:13] LABS: Glucose, Whole Blood 203 mg/dL (60-115)
[2023-07-22] MEDS: Insulin Lispro 100 UNIT/ML 3 ML VIAL SUBCUT ×2 (11:42→20:41)
[2023-07-22 17:13] LABS: Glucose, Whole Blood 116 mg/dL (60-115)
[2023-07-22 19:31] LABS: Glucose, Whole Blood 212 mg/dL (60-115)
[2023-07-23 03:52] VITALS: BP 136/63; PULSE 60; RESP 20; TEMP 36.9; O2SAT 91
[2023-07-23 06:10] LABS: VBG Base Excess 17.9 mmol/L; VBG HCO3 42 mmol/L (22-26); VBG pCO2 48 mmHg; VBG pH 7.55 (7.32-7.43); VBG pO2 41 mmHg; Venous Blood Gas Refer to POC result
[2023-07-23] MEDS: Omeprazole 20 MG CAPSULE.DR PO (06:42)
[2023-07-23 07:19] LABS: Anion Gap 18 (12-20); Blood Urea Nitrogen 20 mg/dL (9-16); Calcium 9.7 mg/dL (8.4-10.2); Carbon Dioxide 31 mmol/L (22-29); Chloride 93 mmol/L (96-108); Creatinine Clr Calc Pharmacy 44.7; Estimated Glomerular Filt Rate 52; Glucose Random 95 mg/dL (60-115); Magnesium 1.6 mg/dL (1.6-2.6); Potassium 3.3 mmol/L (3.3-5.1); Sodium 139 mmol/L (135-145)
[2023-07-23 07:37] LABS: B Type Natriuretic Peptide 145 pg/mL (<100)
[2023-07-23 07:55] LABS: Glucose, Whole Blood 107 mg/dL (60-115)
[2023-07-23 08:00] VITALS: BP 141/67; PULSE 60; RESP 16; TEMP 36.3; O2SAT 91
[2023-07-23] MEDS: Loratadine 10 MG TABLET PO (09:24)
[2023-07-23] MEDS: Folic Acid 1 MG TABLET PO (09:24)
[2023-07-23] MEDS: oxyBUTYnin chloride ER 5 MG TAB.ER.24 10 MG PO (09:24)
[2023-07-23] MEDS: Losartan Potassium 25 MG TABLET PO (09:24)
[2023-07-23] MEDS: Dicyclomine HCl 10 MG CAPSULE 20 MG PO (09:24)
[2023-07-23] MEDS: Ferrous Sulfate 324 MG TABLET.DR PO (09:24)
[2023-07-23] MEDS: amLODIPine Besylate 10 MG TABLET PO (09:24)
[2023-07-23] MEDS: Atorvastatin Calcium 80 MG TABLET PO (09:24)
[2023-07-23] MEDS: hydrALAZINE HCl 50 MG TABLET 100 MG PO (09:24)
[2023-07-23] MEDS: Lidocaine 4 % Patch ADH..PATCH 1 PATCH TRANSDERMA (09:25)
[2023-07-23] MEDS: Metoprolol Succinate ER 100 MG TAB.ER.24H PO (09:25)
[2023-07-23] MEDS: Doxazosin Mesylate 2 MG TABLET PO (09:25)
[2023-07-23] MEDS: Furosemide 40 MG/4 ML VIAL IVPUSH (09:25)
[2023-07-23] MEDS: Heparin Sodium,Porcine 5,000 UNIT/ML VIAL 5000 UNIT SUBCUT (09:26)
[2023-07-23] MEDS: Escitalopram Oxalate 20 MG TABLET PO (09:26)
[2023-07-23] MEDS: 0.9 % Sodium Chloride Flush 3 ML SYRINGE IVFLUSH (09:27)
[2023-07-23] MEDS: Cyanocobalamin (Vitamin B-12) 1,000 MCG TABLET 1000 MCG PO (09:29)
--- NOTE | 2023-07-23 11:36 | P.F2F_ITS ---
Service Date Service Date: 07/23/23 Encounter Date of encounter: 07/23/23 Reasons for Services Signs and symptoms assessed: -Problem List: Dyspnea on Exertion, Impaired Gait Pattern, Impaired Safety ,Impaired Standing Balance,Muscle Weakness, Postural Asymmetry Reason for detention: medication management, medication treatment, teach disease management and other (CHF teaching/monitoring) Reason for physical therapy: home safety and mobility, therapeutic exercises, restore joint function, gait/transfer training, assess need for DME, ADL trainin g and energy conservation MD Overseeing Care: Yoselyn Millan Homebound: Leaving the home is medically contraindicated at this time without the asist of a device and/or another person due th the listed conditions above and below. Reason homebound: unsteady gait / fall risk and weakness related to hospital stay Homebound supporting statement: -Frequency/ Duration: 2-3x/week acute level PT -Goals: 1. Ambulate 100ft with LRAD and CGA 2. Demonstrate proper PLB techniques during sit<> stand transitions 3. 1-3 visits -Goals Set with Patient: Yes: son present -Treatment Plan: Transfer Training,Gait Training, Therapeutic Activities, Therapeutic Exercise, Patient Education, Safety,Balance Certification: Based on the above findings, I certify that this patient is confined to the home and needs intermittent detention care, physical therapy and/or speech therapy, or continues to need occupational therapy. The patient is under my care, and I have initiated the establishment of the plan of care. The patient will be followed by a physician who will periodically review the plan of care. Time Spent With Patient Time: Total time managing care of this patient today ____ minutes.
--- NOTE | 2023-07-23 11:44 | P.DS_ITS ---
DS: Providers Provider Date of Service: 07/23/23 Date of admission: 07/20/23 00:27 Date of discharge: 07/23/23 Primary care physician: Yoselyn Millan MD DS: Diagnosis Discharge Diagnosis (1) Acute hypoxemic respiratory failure: Status: Acute (2) Acute on chronic heart failure with preserved ejection fraction (HFpEF): Status: Acute (3) Hypokalemia: Status: Acute (4) Hypomagnesemia: Status: Acute DS: Summary Hospital Course Hospital Course: From the history and physical by the admitting hospitalist, Louisa Morrell, 07/20/23: Nedra Razo is 78 years old woman with past medical history significant for HFpEF (EF 57% echo June 2021), COPD -not home O2, type 2 diabetes mellitus, pacemaker implantation essential hypertension and hyperlipidemia presents to the ED complaining of worsening shortness of breath since yesterday associated with dry cough and right-sided chest pain. She also reported swelling to the lower extremities. Denies associated palpitations or dizziness. Denied any acute gastrointestinal or genitourinary symptoms. She has been taking her medications as prescribed and has not missed any dose. In the ED, she was found to have oxygen saturation 88% on room air and currently requiring 2 liters/minute supplemental oxygen via nasal cannula. There is also tachypnea. There is no tachycardia, fever or hypotension. Blood workup was remarkable for anemia of 9.7 (it was 11.7 on May of this year). There is no leukocytosis and platelets are normal. There are no electrolyte imbalances. Creatinine 0.80 and magnesium 1.5. Transaminases and alk-phos are mildly elevated. Bilirubin is normal. BNP is 382. Troponin is 3.3. UA is essentially normal. Viral testing for COVID-19, influenza and RSV is negative. CXR showed cardiomegaly with chronic interstitial changes. ECG showed normal sinus rhythm and nonspecific ST and T-wave changes; QT is shortened. ED tx: Lasix 20 mg IV. 78yo F with HFpEF, COPD not on home O2, DM2, PPM, HTN, and HLD presenting with 1d of worsening dyspnea and cough, and admitted for hypoxia due to CHF exacerbation. She was diuresed net negative 3L with IV furosemide and weaned off oxygen. TTE showed normal LVEF but severe [grade 3] diastolic dysfunction. Her antihypertensives [doxazosin, hydralazine, amodipine, losartan, metoprolol succinate] were continued. She was discharged home with VNA services and should see Primary Care and Cardiology in 1-2 weeks. Time Attestation Discharge Coordination Time (in mins): 35 Quality: Safe Use of Opioids Does Pt have an Active Cancer Diagnosis on the Problem List?: No Quality: Stroke Does the patient have a stroke diagnosis?: No Physical Exam Vital Signs: Vital Signs: Last Vital Signs Temp 97.4 F 07/23/23 08:00 Pulse 60 07/23/23 08:00 Resp 16 07/23/23 08:00 BP 141/67 H 07/23/23 08:00 Pulse Ox 91 L 07/23/23 08:00 O2 Del Method Room Air 07/23/23 08:00 O2 Flow Rate 1 07/23/23 03:52 BMI result Body Mass Index 26.2 Gen: in no acute distress HEENT: sclera anicteric, moist mucus membranes Neck: supple Lungs: clear to auscultation bilaterally Heart: regular rate and rhythm, no murmurs Abd: soft, non-tender, non-distended Ext: no edema Skin: warm/well-perfused Neuro: alert and oriented x3, no focal findings Psych: appropriate affect DS: Data Data Completed and Pending Completed studies during hospitalization [Text1]: Laboratory Results WBC 5.3 X10*3/uL (4.8-10.8) 07/21/23 06:27 RBC 4.09 X10*6/uL (4.20-5.50) L 07/21/23 06:27 Hgb 10.0 g/dl (12.0-16.0) L 07/21/23 06:27 Hct 31.4 % (37.0-47.0) L 07/21/23 06:27 MCV 76.8 fL (80.0-98.0) L 07/21/23 06:27 MCH 24.4 pg (27.0-33.0) L 07/21/23 06:27 MCHC 31.8 g/dl (31.0-35.0) 07/21/23 06:27 RDW 17.0 % (11.0-16.0) H 07/21/23 06:27 Plt Count 220 X10*3/uL (160-400) 07/21/23 06:27 MPV 9.6 fL (9.4-12.3) 07/21/23 06:27 Immature Gran % (Auto) 0.2 % (0.0-0.4) 07/20/23 06:42 Neut % (Auto) 66.6 % (45-73) 07/20/23 06:42 Lymph % (Auto) 20.9 % (20-40) 07/20/23 06:42 [place] % (Auto) 9.5 % (2-11) 07/20/23 06:42 Eos % (Auto) 2.2 % (0-4) 07/20/23 06:42 Baso % (Auto) 0.6 % (0-2) 07/20/23 06:42 Lymph # (Auto) 1.1 X10*3/uL (1.2-4.9) L 07/20/23 06:42 [place] # (Auto) 0.5 X10*3/uL (0.1-1.2) 07/20/23 06:42 Eos # (Auto) 0.1 X10*3/uL (0.0-0.4) 07/20/23 06:42 Baso # (Auto) 0.0 X10*3/uL (0.0-0.2) 07/20/23 06:42 Abs Immat Gran (auto) 0.01 X10*3/uL (0.00-0.03) 07/20/23 06:42 Absolute Neuts (auto) 3.4 x10*3/uL (2.0-8.3) 07/20/23 06:42 Absolute Nucleated RBC 0.000 X10*3/uL (0.0-0.012) 07/21/23 06:27 Nucleated RBC % (auto) 0.0 /100WBC (0.0-0.2) 07/21/23 06:27 VBG pH 7.55 (7.32-7.43) H 07/23/23 06:03 VBG pCO2 48 mmHg 07/23/23 06:03 VBG pO2 41 mmHg 07/23/23 06:03 VBG HCO3 42 mmol/L (22-26) H 07/23/23 06:03 VBG O2 Saturation 71.0 % 07/23/23 06:03 VBG Base Excess 17.9 mmol/L 07/23/23 06:03 Sodium 139 mmol/L (135-145) 07/23/23 06:03 Potassium 3.3 mmol/L (3.3-5.1) 07/23/23 06:03 Chloride 93 mmol/L (96-108) L 07/23/23 06:03 Carbon Dioxide 31 mmol/L (22-29) H 07/23/23 06:03 Anion Gap 18 (12-20) 07/23/23 06:03 BUN 20 mg/dL (9-16) H 07/23/23 06:03 Creatinine 1.03 mg/dL (0.5-1.4) 07/23/23 06:03 Estim Creat Clear Calc 44.7 07/23/23 06:03 Estimated GFR 52 07/23/23 06:03 POC Glucose 107 mg/dL (60-115) 07/23/23 07:37 Random Glucose 95 mg/dL (60-115) 07/23/23 06:03 Calcium 9.7 mg/dL (8.4-10.2) 07/23/23 06:03 Magnesium 1.6 mg/dL (1.6-2.6) 07/23/23 06:03 Total Bilirubin 0.4 mg/dL (0.0-1.0) 07/21/23 06:27 Direct Bilirubin 0.2 mg/dL (0.0-0.5) 07/21/23 06:27 AST 20 U/L (5-31) 07/21/23 06:27 ALT 35 U/L (0-31) H 07/21/23 06:27 Alkaline Phosphatase 111 U/L (39-117) 07/21/23 06:27 Troponin I High Sens 3.3 ng/L (<3.5-17.0) 07/19/23 21:07 B-Natriuretic Peptide 145 pg/mL (<100) H 07/23/23 06:03 Total Protein 6.5 g/dL (6.5-8.0) 07/21/23 06:27 Albumin 3.2 g/dL (3.5-5.0) L 07/21/23 06:27 Urine Color Yellow 07/19/23 23:03 Urine Appearance Clear 07/19/23 23:03 Urine pH 5.5 (5.0-9.0) 07/19/23 23:03 Ur Specific [place] 1.010 (1.005-1.025) 07/19/23 23:03 Urine Protein Negative mg/dL (Neg-Trace) 07/19/23 23:03 Urine Glucose (UA) Negative mg/dL (Negative) 07/19/23 23:03 Urine Ketones Negative mg/dL (Negative) 07/19/23 23:03 Urine Blood Negative (Negative) 07/19/23 23:03 Urine Nitrite Negative (Negative) 07/19/23 23:03 Ur Leukocyte Esterase Small (1+) (Negative) H 07/19/23 23:03 Urine RBC 0-2 /HPF (0-2) 07/19/23 23:03 Urine WBC 0-5 /HPF (0-5) 07/19/23 23:03 Ur Squamous Epith Cells 0-2 /HPF (0-2) 07/19/23 23:03 Urine Bacteria None Seen (None Seen) 07/19/23 23:03 Hyaline Casts 0-2 /LPF (0-2) 07/19/23 23:03 Influenza Type A (PCR) NEGATIVE (Negative) 07/19/23 21:09 Influenza Type B (PCR) NEGATIVE (Negative) 07/19/23 21:09 RSV RNA Qual (PCR) NEGATIVE (Negative) 07/19/23 21:09 SARS-CoV-2 RNA (RT-PCR) NEGATIVE (Negative) 07/19/23 21:09 Impressions Chest X-Ray 07/19/23 21:25 IMPRESSION: Cardiomegaly with chronic interstitial changes. No acute intrathoracic disease. Discharge Plan Discharge Anticipated Discharge Date/Time: 07/23/23 11:39 Patient Disposition: Home Health Service Discharge Diagnosis: hypoxia due to CHF exacerbation Referrals: Yoselyn Figueroa MD [Primary Care Provider] - 1 Week Bryn Newell MD [Physician] - 2 Weeks Discharge Medications: New furosemide 40 mg tablet 40 mg PO QAM Qty: 30 0RF Continued (DME) blood-glucose meter [FreeStyle [place] Lite] Kit See Rx Instructions .ROUTE .MEDSUPPLY Qty: 1 0RF Rx Instructions: As directed (DME) FreeStyle Lite Strips Strip See Rx Instructions .Route Qty: 100 1RF Rx Instructions: Use 1 test strip once a day loratadine 10 mg tablet 10 mg PO DAILY Qty: 90 3RF albuterol sulfate [Ventolin HFA] 90 mcg/actuation HFA aerosol inhaler 2 puff inhalation Q6H PRN (Reason: bronchospasm) 30 Days Qty: 6.7 1RF amlodipine 10 mg tablet 10 mg PO DAILY Qty: 90 2RF atorvastatin 80 mg tablet 80 mg PO DAILY Qty: 90 2RF (DME) FreeStyle Lite Strips Strip See Rx Instructions .Route Qty: 100 1RF Rx Instructions: Use 1 test strip once a day cetirizine 5 mg/5 mL solution 10 mg PO DAILY PRN (Reason: allergy symptoms) 30 Days Qty: 150 0RF citalopram 20 mg tablet 20 mg PO DAILY 90 Days Qty: 90 0RF cyanocobalamin (vitamin B-12) [Vitamin B-12] 1,000 mcg tablet 1,000 mcg PO .three times a week 90 Days Qty: 36 2RF dicyclomine 20 mg tablet 20 mg PO TID 30 Days Qty: 90 3RF doxazosin [Cardura] 2 mg tablet 2 mg PO DAILY Qty: 30 11RF ferrous sulfate [iron] 325 mg (65 mg iron) tablet 325 mg PO DAILY 90 Days Qty: 90 1RF folic acid 1 mg tablet 1 mg PO DAILY 90 Days Qty: 90 3RF hydralazine 100 mg tablet 100 mg PO BID Qty: 180 1RF losartan 25 mg tablet 25 mg PO DAILY Qty: 90 1RF metformin 500 mg tablet extended release 24 hr 1,000 mg PO DAILY 90 Days Qty: 180 3RF metoprolol succinate 100 mg tablet extended release 24 hr 100 mg PO DAILY 90 Days Qty: 90 2RF oxybutynin chloride 10 mg tablet extended release 24hr 10 mg PO DAILY Qty: 90 1RF fluticasone propionate 44 mcg/actuation HFA aerosol inhaler 2 puff PO BID Qty: 31.8 6RF meclizine 25 mg tablet 25 mg PO TID PRN (Reason: dizziness) 30 Days Qty: 90 0RF lidocaine 5 % adhesive patch,medicated 1 patch topical DAILY 30 Days Qty: 30 0RF Rx Instructions: leave on most painful area for up to 12 hrs niacin 500 mg tablet extended release 24 hr 500 mg PO BEDTIME 90 Days Qty: 90 0RF alendronate [Fosamax] 70 mg tablet 70 mg PO SHAW omeprazole 20 mg capsule,delayed release(DR/EC) 20 mg PO DAILY ergocalciferol (vitamin D2) [Vitamin D2] 1,250 mcg (50,000 unit) capsule 1,250 mcg PO SHAW promethazine 25 mg tablet 25 mg PO TID PRN (Reason: nausea and vomiting) 30 Days Qty: 10 1RF Discharge Orders: Discharge Order (Routine); Ordered 07/23/23 Ordered By: Anay Mohan Diet: Advance to usual diet Activity on Discharge: As tolerated Stand Alone Forms: Patient Portal Discharge page Print Language: Turkish Care Plan Goals: cardiac health Health Concerns: hypoxia due to CHF exacerbation Plan of Treatment: Low-sodium diet: less than 2000 mg of sodium daily. Weigh yourself daily and call your doctor if your weight goes up by more than 3 lb/day or 5 lb/week. Take furosemide 40 mg once daily Follow up with your bulk intake worker in 2-3 weeks Please follow up with your primary care doctor within 1 week. Return to the hospital if you experience recurrent or worsening symptoms. Assessment: See Discharge Summary.
[2023-07-23 12:00] VITALS: BP 117/53; PULSE 59; RESP 20; TEMP 36.4; O2SAT 90
[2023-07-23 12:06] LABS: Glucose, Whole Blood 206 mg/dL (60-115)
[2023-07-23 12:14] VITALS: PULSE 63; PULSE 68; PULSE 95; O2SAT 84; O2SAT 87; O2SAT 90; O2SAT 96
[2023-07-23] MEDS: Insulin Lispro 100 UNIT/ML 3 ML VIAL SUBCUT (12:21)
--- NOTE | 2023-07-23 12:36 | MHC.CM.PN ---
PT WILL DC HOME TODAY WITH [facility]ORT [facility] FOR [facility] WILL PROVIDE HOME PT, OR SEND IT TO VNA PTS DAUGHTER TO TRANSPORT
== END 2023-07-23 14:54 | disposition home health service (06) | DRG 291 ==
LOC: HO.ED 21:15 → HO.EDOVER 07-20 00:33 → HO.IMC 07-20 01:29
PROVIDERS: Physician Assistant; Admitting Provider Internal Medicine; Emergency Provider Internal Medicine; PCP Internal Medicine; Visit Provider Family Medicine
DX: I11.0 Hypertensive heart disease with heart failure (principal); I50.33 Acute on chronic diastolic (congestive) heart failure; J96.01 Acute respiratory failure with hypoxia; I69.354 Hemiplegia and hemiparesis following cerebral infarction affecting left non-dominant side; F32.A Depression, unspecified; E87.6 Hypokalemia; E83.42 Hypomagnesemia; K21.9 Gastro-esophageal reflux disease without esophagitis; D50.9 Iron deficiency anemia, unspecified; J44.9 Chronic obstructive pulmonary disease, unspecified; E78.5 Hyperlipidemia, unspecified; Z95.0 Presence of cardiac pacemaker; Z20.822 Contact with and (suspected) exposure to COVID-19; Z79.84 Long term (current) use of oral hypoglycemic drugs; Z79.51 Long term (current) use of inhaled steroids; Z79.899 Other long term (current) drug therapy
CPT/HCPCS: 0241U; 36415; 71045; 80048; 80076; 81001; 82803; 82947; 83735; 83880; 84484; 85025; 85027; 87086; 93005; 93306; 93356; 97162; 99285; C9113; J1644; J1940; J3475; Q9957

== ENCOUNTER → 2023-07-19 20:37 | Outpatient (BNV) | payer OTHER, SELFPAY | PROVIDERS: Admitting Provider Internal Medicine; Emergency Provider Internal Medicine; PCP Internal Medicine; Visit Provider Internal Medicine Cardiovascular Disease | DX: R94.31 Abnormal electrocardiogram [ECG] [EKG] (principal) | CPT/HCPCS: 93010 ==

== ENCOUNTER 2023-07-20 00:27 | Outpatient (BNV) | payer OTHER, SELFPAY | END 2023-07-20 07:00 | PROVIDERS: Admitting Provider Internal Medicine; Emergency Provider Internal Medicine; PCP Internal Medicine; Visit Provider Internal Medicine Cardiovascular Disease | DX: I50.33 Acute on chronic diastolic (congestive) heart failure (principal); I36.1 Nonrheumatic tricuspid (valve) insufficiency | CPT/HCPCS: 93306; 93356 ==

== ENCOUNTER → 2023-07-20 00:27 | Outpatient (BNV) | payer OTHER, SELFPAY | PROVIDERS: Admitting Provider Internal Medicine; Emergency Provider Internal Medicine; PCP Internal Medicine; Visit Provider Internal Medicine | DX: J96.01 Acute respiratory failure with hypoxia (principal); I50.33 Acute on chronic diastolic (congestive) heart failure | CPT/HCPCS: 99223; 99232; 99239; 99499; G0180 ==

== ENCOUNTER 2023-08-11 12:03 | Outpatient (AMB) | payer OTHER, SELFPAY ==
--- NOTE | 2023-08-11 12:14 | MHC.PC.OV ---
Vital Signs 08/11/23 12:15 Height 5 ft 6 in Weight 153 lb BMI 24.7 BP 132/60 Blood Pressure Location Lt brachial Position Sitting Pulse 65 Pulse Source Pulse Oximeter Pulse Oximetry (%) 97 Oxygen Delivery Method Nasal Cannula Intake Visit Re[place] [facility] [place] Liquid in lungs Field Support Engineer Required: No Accompanied by: Daughter in law Allergies egg [EGG] Adverse Reaction (Intermediate, Verified 08/11/23 12:32) DIARRHEA oats [OATS] Adverse Reaction (Intermediate, Verified 08/11/23 12:32) DIARRHEA FROM OATMEAL Pioglitazone HCl Adverse Reaction (Intermediate, Uncoded 08/11/23 12:32) edema Medication List - Last Reconciled 08/11/23 by Yoselyn Millan MD albuterol sulfate 90 mcg/actuation (Ventolin HFA) 2 puffs inhalation Q6H PRN 30 days alendronate (Fosamax) 70 mg PO SHAW amlodipine 10 mg PO DAILY atorvastatin 80 mg PO DAILY blood sugar diagnostic (FreeStyle Lite Strips) Use 1 test strip once a day blood sugar diagnostic (FreeStyle Lite Strips) Use 1 test strip once a day blood-glucose meter (FreeStyle [place] Lite kit) As directed cetirizine 10 mg (10 mL) PO DAILY PRN 30 days citalopram 20 mg PO DAILY 90 days cyanocobalamin (vitamin B-12) (Vitamin B-12) 1,000 mcg PO .three times a week 90 days dicyclomine 20 mg PO TID 30 days doxazosin (Cardura) 2 mg PO DAILY ergocalciferol (vitamin D2) (Vitamin D2) 1,250 mcg PO SHAW ferrous sulfate (iron) 325 mg PO DAILY 90 days fluticasone propionate 44 mcg/actuation 2 puffs PO BID folic acid 1 mg PO DAILY 90 days furosemide 80 mg PO DAILY 30 days hydralazine 100 mg PO BID lidocaine 5% 1 patch topical DAILY 30 days loratadine 10 mg PO DAILY losartan 25 mg PO DAILY meclizine 25 mg PO TID PRN 30 days metformin ER 1,000 mg (2 x 500 mg) PO DAILY 90 days metoprolol succinate ER 100 mg PO DAILY 90 days niacin ER 500 mg PO BEDTIME 90 days omeprazole 20 mg PO DAILY oxybutynin chloride ER 10 mg PO DAILY promethazine 25 mg PO TID PRN 30 days Tobacco use date assessed: 05/18/23 Fall risk assessment: No Falls in past year Last assessed Fall Risk: 08/11/23 Dental Screening Dental Screen Date: 05/18/23 HPI HPI Comments History of Present Illness Details This is an 78-year-old female with mild recurrent major depression, diabetes mellitus type 2, hypertension, congestive heart failure, COPD and left hemiparesis secondary to stroke that comes accompanied by CREDIT RATING CHECKER for follow-up on her conditions. She was recently hospitalized due to congestive heart failure exacerbation and acute hypoxemia requiring oxygen due to COPD. Her discharge date was 07/23/2023 from [facility] [place]. Will see Cardiology soon and I will refer her to pulmonology for COPD. Depression stable with medications and follow-up visit was requested. Blood glucose mildly elevated and her A1c goal should be less than 7%. Blood pressure stable. Has not gain 5 lb in a week but did gain 3 lb in a day and I increase furosemide from 40 mg to 80 mg up until she sees Cardiology. No leg swelling today and seems euvolemic. On 2 L of oxygen saturating 96-97%. Walks with a walker for gait stability due to her left hemiparesis. FORMERLY [facility], [facility] Medical History (Updated 08/11/23 @ 14:12 by Yoselyn Millan MD) Acute on chronic combined systolic (congestive) and diastolic (congestive) heart failure Acute hypoxemic respiratory failure Acute on chronic heart failure with preserved ejection fraction (HFpEF) Acute on chronic diastolic (congestive) heart failure Hearing loss CHF (congestive heart failure) Iron deficiency anemia Left hemiparesis Cardiac pacemaker in situ Diastolic dysfunction Ear discomfort Otitis media Moderate asthma Pure hypercholesterolemia Osteoporosis B12 deficiency Gallstones GERD (gastroesophageal reflux disease) Hypovitaminosis D History of stroke Diabetes mellitus Essential hypertension Surgical History History of pacemaker Family History Father No problems noted. Mother No problems noted. Social History Household Members: Family Housing: Apartment Housing Other:: lives with daughter Are you a primary director career to a significant other at home: No Do you presently have visiting nurse or other home services: Yes Alcohol intake: never Patient Tobacco Use Status: Former Tobacco user Tobacco use type: Cigarette e-Cigarette/Vaping Use: Never Used Second Hand Smoke Exposure: No Advance Directives Date on File: 07/02/21 service: No Current occupational status: disabled Cognitive needs: Yes (walker) Hearing needs: No Vision needs: Yes (glasses) Questionnaire PHQ-9 Over the last 2 weeks, how often have you been bothered by any of the following problems? 1. Little interest or pleasure in doing things: several days 2. Feeling down, depressed, or hopeless: several days 3. Trouble falling or staying asleep, or sleeping too much: several days 4. Feeling tired or having little energy: several days 5. Poor appetite or overeating: not at all 6. Feeling bad about yourself - or that you are a failure or have let yourself or your family down: not at all 7. Trouble concentrating on things, such as reading the newspaper or watching television: not at all 8. Moving or speaking so slowly that other people could have noticed. Or the opposite - being so fidgety or restless that you have been moving around a lot more than usual: not at all 9. Thoughts that you would be better off or of hurting yourself in some way: not at all Total score: 4 Depression Screening Interpretation: Positive Depression Screening Follow-up: Existing condition, In treatment and Follow-up Visit Requested Depression Screening Done: Yes 42832 - PHQ-9 Billing: Yes Source: Developed by Drs. Prashanth Cuevas, Elia Benoit and colleagues, with an educational jayy from [employer]. Thrive Questionnaire Date Thrive assessed: 07/20/23 ELBA-7 AMB Questionnaire ELBA-7 Date ELBA - 7 assessed: 05/18/23 Source: Developed by Drs. Prashanth Cuevas, Elia Benoit and colleagues, with an educational jayy from [employer]. Review of Systems Const All systems reviewed & are unremarkable except as noted in HPI and below Card Denies chest pain at rest, Denies chest pain with activity, Denies edema, Denies irregular heart rhythm, Denies claudication, Denies dyspnea, Denies dyspnea on exertion, Denies orthopnea, Denies paroxysmal nocturnal dyspnea and Denies slow heart rate Resp Denies cough, Denies dyspnea and Denies dyspnea on exertion Physical exam (Primary Care) Vital Signs: Last Vital Signs Pulse 65 08/11/23 12:15 BP 132/60 08/11/23 12:15 Pulse Ox 97 08/11/23 12:15 Oxygen Delivery Method Nasal Cannula 08/11/23 12:15 BMI result Body Mass Index 24.7 Tobacco/Smoking Status: Tobacco use Status Tobacco use date assessed 05/18/23 08/11/23 12:23 Patient Tobacco Use Status Former Tobacco user 08/11/23 12:23 Tobacco use type Cigarette 08/11/23 12:23 e-Cigarette/Vaping Use Never Used 08/11/23 12:23 PHQ-9: PHQ-9 Score PHQ-9: Total score 4 08/11/23 12:48 Depression Screening Interpretation: Positive Depression Screening Follow-up: Existing condition, In treatment and Follow-up Visit Requested Thrive Assessment: Date of Thrive Assessment Date Thrive assessed 07/20/23 08/11/23 12:23 Resp Effort & Inspection: normal respiratory effort Auscultation: clear to auscultation bilaterally Cardio Jugular venous distension: no JVD Rate: regular rate Rhythm: regular rhythm Heart sounds: S1 normal heart sound present and S2 normal heart sound present Assessment and Plan Assessment & Plan (1) COPD (chronic obstructive pulmonary disease): Code(s): J44.9 - Chronic obstructive pulmonary disease, unspecified Qualifiers: COPD type: unspecified COPD Qualified Code(s): J44.9 - Chronic obstructive pulmonary disease, unspecified Plan: Referred to pulmonology. (2) Mild recurrent major depression: Code(s): F33.0 - Major depressive disorder, recurrent, mild Plan: Continue citalopram. Follow-up visit requested. (3) CHF (congestive heart failure): Code(s): I50.9 - Heart failure, unspecified Plan: Increase furosemide to 80 mg. The goal is to not gain 5 lb in a week or 3 lb in a day. Weight patient daily. Follow-up with Cardiology. (4) Diabetes mellitus: Code(s): E11.9 - Type 2 diabetes mellitus without complications Qualifiers: Diabetes mellitus type: type 2 Diabetes mellitus nursing home insulin use: without nursing home use Diabetes mellitus complication status: without complication Qualified Code(s): E11.9 - Type 2 diabetes mellitus without complications Plan: Continue metformin. A1c goal is equal or less than 7%. (5) Left hemiparesis: Code(s): G81.94 - Hemiplegia, unspecified affecting left nondominant side Plan: Continue the use of a walker. Orders: Orders US abdomen complete Today R10.11 - Right upper quadrant pain Complete Blood Count Auto Diff Today D64.9 - Anemia, unspecified Lipid Panel Today E78.5 - Hyperlipidemia, unspecified Vitamin D 25-OH Total Today E55.9 - Vitamin D deficiency, unspecified Vitamin B12 and Folate Today E53.8 - Deficiency of other specified B group vitamins Comprehensive [place]. Panel Fast Today I50.33 - Acute on chronic diastolic (congestive) heart failure IRON PROFILE Today D64.9 - Anemia, unspecified Microalbumin, Random (w Creat) Today E11.9 - Type 2 diabetes mellitus without complications NT-proBNP Today I50.33 - Acute on chronic diastolic (congestive) heart failure Referrals Pulmonology Referral J44.9 - Chronic obstructive pulmonary disease, unspecified, Z99.81 - Dependence on supplemental oxygen Medications: New hydrocortisone 1% (Anti-Itch (hydrocortisone)) 1 appl topical BID 2 weeks PRN 28.4 grams 0RF skin irritation Changed From omeprazole 20 mg PO DAILY To omeprazole 20 mg PO DAILY 90 days 90 caps 1RF Coding Level of Care Code Est Pt Level 5 (44992) Complex EM visit Add On G2211 Diagnoses Chronic obstructive pulmonary disease, unspecified COPD type J44.9 COPD type: unspecified COPD Mild recurrent major depression F33.0 CHF (congestive heart failure) I50.9 Type 2 diabetes mellitus without complication, without long-term current use of insulin E11.9 Diabetes mellitus type: type 2 Diabetes mellitus long term care administrator insulin use: without long term care administrator use Diabetes mellitus complication status: without complication Left hemiparesis G81.94 Time Spent (min) 40
[2023-08-11 12:15] VITALS: BP 132/60; PULSE 65; O2SAT 97; BMI 24.7
== END 2023-08-11 12:44 | disposition home or self-care (01) ==
PROVIDERS: PCP Internal Medicine; Visit Provider Internal Medicine
DX: J44.9 Chronic obstructive pulmonary disease, unspecified (principal); F33.0 Major depressive disorder, recurrent, mild; I50.9 Heart failure, unspecified; E11.9 Type 2 diabetes mellitus without complications; G81.94 Hemiplegia, unspecified affecting left nondominant side
CPT/HCPCS: 99215; G2211

== ENCOUNTER 2023-08-13 09:35 | Outpatient (AMB) | payer OTHER, SELFPAY ==
[2023-08-13 09:51] VITALS: BP 118/54; PULSE 67; O2SAT 92; BMI 25.3
--- NOTE | 2023-08-13 09:51 | A.OFFVIS_ITS ---
Vital Signs 08/13/23 09:51 Height 5 ft 6 in Weight 156 lb 8 oz BMI 25.3 BP 118/54 L Blood Pressure Location Rt brachial Position Sitting Pulse 67 Pulse Source Pulse Oximeter Pulse Oximetry (%) 92 Oxygen Delivery Method Nasal Cannula Intake Visit Reasons: copd Allergies egg [EGG] Adverse Reaction (Intermediate, Verified 08/15/23 07:46) DIARRHEA oats [OATS] Adverse Reaction (Intermediate, Verified 08/15/23 07:46) DIARRHEA FROM OATMEAL Pioglitazone HCl Adverse Reaction (Intermediate, Uncoded 08/13/23 09:54) edema HPI HPI copd: Details: Nedra is a pleasant 78 year old female, former smoker, with 60+ pack year history, quit 5 years ago with underlying COPD, asthma, HTN, DMII, diastolic dysfunction s/p pacer and CVA with left-sided residual hemiparesis . She was referred after recent [facility] admission 07/18 -07/22 for dyspnea, chest heaviness and increased leg swelling. She was treated for acute respiratory failure with hypoxia now on 2L of supplemental oxygen and CHF exacerbation. Given IV lasix, now increased to 80 mg daily lasix. Since discharge she reports minimally improved symptoms, continues with dyspnea on exertion, dry cough and intermittent wheezing. She has been using Flovent and albuterol MDI with suboptimal effect. Patient has upcoming appointment with water chemist to review lasix regimen. She has been using 2 L supplemental oxygen continuously, at night as well, satting between 90-92%. She reports asthma as a child, never requiring intubations. 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 [facility] Medical History Acute on chronic combined systolic (congestive) and diastolic (congestive) heart failure Acute hypoxemic respiratory failure Acute on chronic heart failure with preserved ejection fraction (HFpEF) Acute on chronic diastolic (congestive) heart failure Hearing loss CHF (congestive heart failure) Iron deficiency anemia Left hemiparesis Cardiac pacemaker in situ Diastolic dysfunction Ear discomfort Otitis media Moderate asthma Pure hypercholesterolemia Osteoporosis B12 deficiency Gallstones GERD (gastroesophageal reflux disease) Hypovitaminosis D History of stroke Diabetes mellitus Essential hypertension Surgical History History of pacemaker Family History Father No problems noted. Mother No problems noted. Social History Household Members: Family Housing: House Housing Other:: lives with daughter Are you a primary hearing care professional to a significant other at home: No Do you presently have visiting nurse or other home services: Yes (PT and Nursing) Alcohol intake: never Patient Tobacco Use Status: Former Tobacco user Tobacco use type: Cigarette Smoked in Last 30 Days: No e-Cigarette/Vaping Use: Never Used Patient Interested in Nicotine Replacement: No Patient Given Instructions on How to Stop Smoking: No Second Hand Smoke Exposure: No Use of substances other than those prescribed or required for medical reasons: No Currently Displaying Signs/Symptoms of Drug Intoxication Withdrawal: No Any prior treatment program specific to substance use: No Have you been hit, kicked, punched, or otherwise hurt by someone within the past year? If so, by whom?: No Do you feel safe in your current relationship?: No Current Relationship Is there a partner from a previous relationship who is making you feel unsafe now?: No Are you made to feel afraid or neglected: No Advance Directives: Yes Advance Directives on File: Yes Advance Directives Date on File: 07/02/21 Do you have a plan to hurt others: No Plan Recently lost weight without trying: No Eating poorly because of decreased appetite: No Nutrition Risks: No Nutritional Risk Patient : No : No Poor oral hygiene: No service: No Current occupational status: disabled Cognitive needs: Yes (walker) Hearing needs: No Vision needs: Yes (glasses) Review of Systems Const Denies chills, Denies excessive sweating, Denies fever(s), Denies headache(s) and Denies night sweats Eyes Denies dry eyes, Denies irritation and Denies itchy eyes ENT Reports Normal hearing present, Denies headache(s), Denies nasal congestion, Denies nasal discharge, Denies post nasal drip and Denies sore throat Card Denies chest pain, Denies chest pain at rest, Denies chest pain with activity, Denies claudication, Denies leg edema, Reports dyspnea on exertion, Denies orthopnea and Denies paroxysmal nocturnal dyspnea Resp Denies chest congestion, Reports cough, Denies hemoptysis, Denies excessive phlegm production, Denies pain on inspiration, Denies pain with cough, Reports dyspnea on exertion, Denies stridor and Reports wheezing Musc Denies myalgias Neuro Reports Normal hearing present and Denies headache(s) Endo Denies excessive sweating Eric/Lymph Denies lymphadenopathy Aller/Immun Denies itchy eyes, Denies seasonal rhinorrhea and Reports wheezing Physical Exam Vital Signs: Last Vital Signs Pulse 67 08/13/23 09:51 BP 118/54 L 08/13/23 09:51 Pulse Ox 92 08/13/23 09:51 Oxygen Delivery Method Nasal Cannula 08/13/23 09:51 BMI result Body Mass Index 25.3 Const General: cooperative, healthy appearing, comfortable, no acute distress, well developed and alert Nutritional Appearance: obese Orientation/consciousness: patient oriented x3 Limitations: ambulation with cane HEENT Head: Yes normal to inspection, Yes normocephalic and Yes atraumatic Ears: hearing grossly normal bilaterally and external ears normal Eyes General: appearance normal, both eyes and all related structures Eyelids: Yes eyelids normal Sclerae: sclerae normal EOM: EOMs intact bilaterally Neck Neck: Yes normal visual inspection and Yes no lymphadenopathy Lymphatic: no lymphadenopathy noted Chest Chest palpation & inspection: normal inspection of the chest Resp Effort & Inspection: normal respiratory effort, able to speak in complete sentences, no audible wheezes, no cough, no stridor, not tachypneic, no tripod positioning and no use of accessory muscles Auscultation: no crackles, no wheezes and diminished lung sounds Cardio Jugular venous distension: no JVD Rate: regular rate Rhythm: regular rhythm Skin Other: warm, dry General skin exam: no rashes or lesions noted Neuro General: patient oriented x3 Cranial nerves: Yes Normal hearing present Cognition (Neuro): normal cognition Gait exam (Neuro): Normal gait present Extrem Other: 1-2+ pitting edema BLE Psych Appearance: grossly normal and well kempt Speech and movement: Normal speech and movement present and Clear speech present Affect: normal affect Attitude: cooperative Thought process: Normal thought process present Thought content: Normal thought content present Insight: Good insight present (Psych) Judgement: Good judgement present (Psych) Results Reviewed Results Reviewed: [address] [address] XRay Report Signed Patient: Nedra Drummond MR#: [id number] : 1945 Acct:[id number] Age/Sex: 78 / F ADM Date: 07/19/23 Loc: HO.ED Attending Dr: Ordering Physician: Mihai Valencia MD Date of Service: 07/19/23 Procedure(s): XR chest 1V Accession Number(s): [id number] cc: Yoselyn Figueroa MD; Mihai Valencia MD~ EXAMINATION: XR CHEST CLINICAL INFORMATION: CHF COMPARISON: Chest radiograph 07/01/[address] chest 07/03/2019 along with chest radiographs dating back to 12/18/2012 TECHNIQUE: Frontal view of the chest was obtained. FINDINGS: Again seen is mild cardiomegaly with a left chest wall dual lead pacemaker. No gross pulmonary edema is present. Bronchial thickening is present. Increased interstitial markings appear chronic. Some element of mild vascular congestion cannot be entirely excluded. No focal consolidations are seen. No lung masses are seen. No pleural effusions are detected. XR/XR chest 1V IMPRESSION: Cardiomegaly with chronic interstitial changes. No acute intrathoracic disease. 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 On exam patient with diminished lung sounds, no wheezing or crackles appreciated. Patient on 2 L of oxygen 92%, no respiratory distress. Will switch Flovent to Advair given suboptimal response. She was also given a spacer in office and instructed on how to use. Will defer PFT at this time, giv en patient would likely have difficulties performing. Given abnormalities seen on prior CXR, will send for chest CT. Patient likely has significant component of dyspnea related to cardiac etiologies. She has an upcoming appointment with cardiology to discuss duiretic regimen. All questions were answered and patient is in agreement of plan. Will follow up in 4 weeks or sooner if needed. Orders: Orders CT chest wo IV con 08/13/23 R93.89 - Abnormal findings on diagnostic imaging of other specified body structures Medications: New fluticasone propion-salmeterol 115-21 mcg/actuation (Advair HFA) 2 puffs inhalation Q12H 12 grams 6RF Coding Level of Care Code New Pt Level 4 (30504) Diagnoses Chronic obstructive pulmonary disease, unspecified COPD type J44.9 COPD type: unspecified COPD Oxygen dependent Z99.81 CHF (congestive heart failure) I50.9
== END 2023-08-13 10:58 | disposition home or self-care (01) ==
PROVIDERS: PCP Internal Medicine; Visit Provider Nurse Practitioner Family
DX: J44.9 Chronic obstructive pulmonary disease, unspecified (principal); Z99.81 Dependence on supplemental oxygen; I50.9 Heart failure, unspecified
CPT/HCPCS: 99204

== ENCOUNTER → 2023-08-13 09:35 | Outpatient (BNVA) | payer OTHER, SELFPAY | PROVIDERS: PCP Internal Medicine; Visit Provider Nurse Practitioner Family | DX: J44.9 Chronic obstructive pulmonary disease, unspecified (principal); I50.9 Heart failure, unspecified; Z99.81 Dependence on supplemental oxygen; Z95.0 Presence of cardiac pacemaker | CPT/HCPCS: 99202 ==

== ENCOUNTER 2023-08-15 07:31 | Inpatient (IN) | payer OTHER, SELFPAY ==
[2023-08-15] VITALS (10 sets, daily range): BP systolic 138–174; BP diastolic 47–83; PULSE 70–76; RESP 16–20; TEMP 36.2–36.8; O2SAT 91–93; BMI 26.0
--- NOTE | 2023-08-15 | ECG_ITS ---
Test Reason : DIZZY Blood Pressure : / mmHG Vent. Rate : 065 BPM Atrial Rate : 065 BPM P-R Int : 134 ms QRS Dur : 078 ms QT Int : 444 ms P-R-T Axes : 082 029 021 degrees QTc Int : 461 ms Normal sinus rhythm Nonspecific T wave abnormality Abnormal ECG When compared with ECG of 19-JUL-2023 20:55, Nonspecific T wave abnormality, improved in Lateral leads Referred By: Generic ED Physician Electronically Signed By:NANCY HARDY MD
--- NOTE | ~2023-08-15 | XR_ITS ---
EXAMINATION: XR CHEST CLINICAL INFORMATION: Dizzy COMPARISON: Chest radiograph from 07/19/2023 TECHNIQUE: Frontal view of the chest was obtained. FINDINGS: Slight accentuation of the pulmonary vasculature. Bibasilar atelectasis. Chronic interstitial lung markings. No pneumothorax. Trachea is midline. Left chest wall dual-lead pacer, stable. Cardiac mediastinal silhouette is stable. Aorta demonstrates atherosclerotic calcifications. No large pleural effusion. Osseous structures are intact. Soft tissues are unremarkable. XR/XR chest 1V IMPRESSION: 1. Slight accentuation of the pulmonary vasculature. 2. Bibasilar atelectasis. 3. Chronic interstitial lung markings.
--- NOTE | ~2023-08-15 | CT_ITS ---
EXAMINATION: CT chest, CT abdomen and pelvis with IV contrast. CLINICAL INDICATION: Diffuse abdominal pain. COMPARISON: CT chest without contrast 07/02/[address] abdomen and pelvis 06/26/2016. TECHNIQUE: 5 minutes thin axial and reformatted 3 mm thin sagittal and coronal images of chest, abdomen pelvis were obtained following IV 85 metal Omnipaque [address] examination was performed using dose optimization technique as appropriate, variously including the following: Automated exposure control Adjustment of MA and/or KV according to patient size(this includes techniques or standardized protocols for targeted exams where dose is matched to indication/reason for exam; extremities or head. Use of iterative reconstruction techniques. FINDINGS: Chest: LUNGS: The lungs are limited in evaluation secondary breathing artifact. There is bilateral basilar and patchy upper lobe atelectasis/infiltrate. Mediastinum: The thyroid lobes are symmetric and normal. The heart size is enlarged. No pericardial effusion seen. There are pacer electrodes in right atrium and right ventricle. Small subcarinal and and precarinal lymph nodes are seen, nonspecific. Mild coronary artery calcification seen. Pleura: There is bilateral pleural thickening. Axilla: Unremarkable. The chest wall is unremarkable. Abdomen pelvis: Liver, ducts and gallbladder: The liver is normal size and unremarkable. The gallbladder is contracted and appears unremarkable. There is mild fluid in between the gallbladder and liver. Spleen: Unremarkable. Pancreas: Unremarkable. Adrenal glands: Unremarkable. Kidneys: There is a small cyst midpole left kidney. Otherwise both kidneys are unremarkable. No perinephric fluid collection. No radiopaque calculi. Lymphovascular structures: The abdominal aorta is of normal caliber. No retroperitoneal lymph nodes seen. GI tract: There is scattered stool, diverticuli and gas seen in colon without distention. The small bowel loops are normal caliber. Appendix is not seen. The stomach is nondistended. Abdominal wall: There is a small umbilical hernia containing fat. Pelvis: The urinary bladder is anteverted. No free fluid. No pelvic mass or abnormal lymphadenopathy. Minimal free fluid in the right adnexa Osseous structures: Mild spondylosis. There is mild compression deformity T12 vertebra, old. CT/CT abdomen pelvis w IV con IMPRESSION: Bilateral lower lobe and upper lobe infiltrate/atelectasis. The lungs are limited in evaluation. The chest is limited in evaluation secondary breathing artifact. No acute process seen in the abdomen. There is minimal fluid in between the gallbladder and the right hepatic lobe as well as perihepatic ascites, nonspecific. If patient has right upper quadrant pain a HIDA scan can be performed. Moderate constipation. Colonic diverticulosis without diverticulitis. Small hiatal hernia.
[2023-08-15 08:20] LABS: MANUAL DIFF FLAG NO
[2023-08-15 08:25] LABS: Basophils Percent Auto 0.6 % (0-2); Eosinophils Absolute Auto 0.1 X10*3/uL (0.0-0.4); Eosinophils Percent Auto 2.1 % (0-4); Hematocrit 31.1 % (37.0-47.0); Hemoglobin 9.5 g/dl (12.0-16.0); Imm Gran Abs Auto 0.04 X10*3/uL (0.00-0.03); Imm Gran Pct Auto 0.6 % (0.0-0.4); Lymphocytes Absolute Auto 1.1 X10*3/uL (1.2-4.9); Lymphocytes Percent Auto 16.1 % (20-40); Mean Corpuscular HGB Conc 30.5 g/dl (31.0-35.0); Mean Corpuscular Hemoglobin 23.9 pg (27.0-33.0); Mean Corpuscular Volume 78.1 fL (80.0-98.0); Mean Platelet Volume 9.4 fL (9.4-12.3); Monocytes Absolute Auto 0.5 X10*3/uL (0.1-1.2); Monocytes Percent Auto 7.4 % (2-11); Neutrophils Percent Auto 73.2 % (45-73); Platelet Count 247 X10*3/uL (160-400); Red Blood Count 3.98 X10*6/uL (4.20-5.50); Red Cell Distribution Width 16.8 % (11.0-16.0); White Blood Count 6.8 X10*3/uL (4.8-10.8)
[2023-08-15 08:45] LABS: Alanine Aminotransferase 30 U/L (0-31); Albumin Level 3.4 g/dL (3.5-5.0); Alkaline Phosphatase 88 U/L (39-117); Anion Gap 11 (12-20); Aspartate Amino Transferase 30 U/L (5-31); Bilirubin Total 0.5 mg/dL (0.0-1.0); Blood Urea Nitrogen 12 mg/dL (9-16); Calcium 9.4 mg/dL (8.4-10.2); Carbon Dioxide 34 mmol/L (22-29); Chloride 97 mmol/L (96-108); Creatinine Clr Calc Pharmacy 44.7; Estimated Glomerular Filt Rate 54; Glucose Random 144 mg/dL (60-115); Potassium 3.4 mmol/L (3.3-5.1); Sodium 139 mmol/L (135-145); Total Protein 7.1 g/dL (6.5-8.0)
--- NOTE | 2023-08-15 12:26 | ED.GENADULT ---
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 Patient reports that her pain began in her right upper quadrant but has since migrated to the left lower quadrant. Patient and daughter report episodes of diarrhea, but also note that this has been going on for some time and was happening prior to the abdominal pain. Daughter reports occasional episodes of vomiting but states patient has been able to tolerate food and fluids, though has had decreased appetite. Denies fevers. Emesis non-bloody, non-bilious. Denies hematochezia or melena. Patient saw her PCP on 08/10, who ordered an outpatient ultrasound but daughter states this has not been scheduled yet. Patient was recently admitted for acute respiratory failure, denies current chest pain, palpitations, or dyspnea. She is on oxygen via [place] at baseline. Denies any prior abdominal surgeries. MD complaint: abdominal pain Onset (ago): week(s) Location: abdomen Radiation: non-radiation Severity: moderate Quality: aching Pain Consistency: constant Relieving factors: none Exacerbating factors: movement Associated symptoms: nausea/vomiting Treatments prior to arrival: none Related Data Home Medications ?Medication ?Instructions ?Recorded ?Confirmed alendronate 70 mg tablet (Fosamax) 70 mg PO SHAW 07/20/23 08/11/23 ergocalciferol (vitamin D2) 1,250 1,250 mcg PO SHAW 07/20/23 08/11/23 mcg (50,000 unit) capsule (Vitamin D2) Previous Rx's ?Medication ?Instructions ?Recorded blood-glucose meter (FreeStyle #1 ea 01/03/20 [place] Lite kit) promethazine 25 mg tablet 25 mg PO TID PRN nausea and 04/27/22 vomiting 30 days #10 tabs blood sugar diagnostic (FreeStyle #100 ea 02/04/23 Lite Strips) loratadine 10 mg tablet 10 mg PO DAILY #90 caps 04/05/23 albuterol sulfate 90 mcg/actuation 2 puff inhalation Q6H PRN 07/11/23 aerosol inhaler (Ventolin HFA) bronchospasm 30 days #6.7 grams amlodipine 10 mg tablet 10 mg PO DAILY #90 tabs 07/11/23 atorvastatin 80 mg tablet 80 mg PO DAILY #90 tabs 07/11/23 blood sugar diagnostic (FreeStyle #100 ea 07/11/23 Lite Strips) cetirizine 5 mg/5 mL oral solution 10 mg (10 mL) PO DAILY PRN allergy 07/11/23 symptoms 30 days #150 mL citalopram 20 mg tablet 20 mg PO DAILY 90 days #90 tabs 07/11/23 cyanocobalamin (vitamin B-12) 1,000 mcg PO .three times a week 07/11/23 1,000 mcg tablet (Vitamin B-12) 90 days #36 tabs dicyclomine 20 mg tablet 20 mg PO TID 30 days #90 tabs 07/11/23 doxazosin 2 mg tablet (Cardura) 2 mg PO DAILY #30 tabs 07/11/23 ferrous sulfate 325 mg (65 mg 325 mg PO DAILY 90 days #90 tabs 07/11/23 iron) tablet (iron) folic acid 1 mg tablet 1 mg PO DAILY 90 days #90 tabs 07/11/23 hydralazine 100 mg tablet 100 mg PO BID #180 caps 07/11/23 losartan 25 mg tablet 25 mg PO DAILY #90 caps 07/11/23 metformin 500 mg tablet,extended 1,000 mg (2 x 500 mg) PO DAILY 90 07/11/23 release 24 hr days #180 tabs metoprolol succinate 100 mg 100 mg PO DAILY 90 days #90 tabs 07/11/23 tablet,extended release 24 hr oxybutynin chloride 10 mg 10 mg PO DAILY #90 caps 07/11/23 tablet,extended release 24 hr fluticasone propionate 44 2 puff PO BID #31.8 caps 07/19/23 mcg/actuation HFA aerosol inhaler lidocaine 5 % topical patch 1 patch topical DAILY 30 days #30 07/19/23 ea meclizine 25 mg tablet 25 mg PO TID PRN dizziness 30 days 07/19/23 #90 tabs niacin 500 mg tablet,extended 500 mg PO BEDTIME 90 days #90 tabs 07/19/23 release 24 hr furosemide 80 mg tablet 80 mg PO DAILY 30 days #30 tabs 08/04/23 hydrocortisone 1 % topical cream 1 appl topical BID PRN skin 08/11/23 (Anti-Itch (hydrocortisone)) irritation 2 weeks #28.4 grams omeprazole 20 mg capsule,delayed 20 mg PO DAILY 90 days #90 caps 08/11/23 release fluticasone propionate 115 2 puff inhalation Q12H #12 grams 08/13/23 mcg-salmeterol 21 mcg/actuation HFA inhaler (Advair HFA) Allergies Allergy/AdvReac Type Severity Reaction Status Date / Time egg [EGG] AdvReac Intermediate DIARRHEA Verified 08/15/23 07:46 oats [OATS] AdvReac Intermediate DIARRHEA Verified 08/15/23 07:46 FROM OATMEAL Pioglitazone HCl AdvReac Intermediate edema Uncoded 08/13/23 09:54 Review of Systems Review of Systems: As per HPI. Yes all other systems are reviewed and are negative Constitutional: Constitutional: Reports as per HPI [facility] Past Medical History Medical History (Updated 08/15/23 @ 16:20 by Marge Ortiz NP) Acute on chronic combined systolic (congestive) and diastolic (congestive) heart failure Acute hypoxemic respiratory failure Acute on chronic heart failure with preserved ejection fraction (HFpEF) Acute on chronic diastolic (congestive) heart failure Hearing loss CHF (congestive heart failure) Iron deficiency anemia Left hemiparesis Cardiac pacemaker in situ Diastolic dysfunction Ear discomfort Otitis media Moderate asthma Pure hypercholesterolemia Osteoporosis B12 deficiency Gallstones GERD (gastroesophageal reflux disease) Hypovitaminosis D History of stroke Diabetes mellitus Essential hypertension Surgical History History of pacemaker Family History Family History Father No problems noted. Mother No problems noted. Social History Social History Household Members: Family Housing: Apartment Housing Other:: lives with daughter Are you a primary career technical counselor to a significant other at home: No Do you presently have visiting nurse or other home services: Yes Alcohol intake: never Patient Tobacco Use Status: Former Tobacco user Tobacco use type: Cigarette Smoked in Last 30 Days: No e-Cigarette/Vaping Use: Never Used Second Hand Smoke Exposure: No Advance Directives: Yes Advance Directives on File: Yes Advance Directives Date on File: 07/02/21 Do you have a plan to hurt others: No Plan service: No Current occupational status: disabled Cognitive needs: Yes (walker) Hearing needs: No Vision needs: Yes (glasses) Physical Exam ED Vital Signs: Vital Signs - 24 hr 08/15/23 07:45 08/15/23 13:16 Temperature 97.1 F 98.3 F Pulse Rate 70 74 Respiratory Rate 20 16 Blood Pressure 154/58 H 159/60 H Pulse Oximetry 91 L 91 L Oxygen Delivery Method Nasal Cannula Nasal Cannula Oxygen Flow Rate 2 BMI result Body Mass Index 26.0 Vital signs have been reviewed and appear to be correct. Blood pressure elevated. Heart rate normal. Respiratory rate normal. Temperature normal. Oxygen saturation low, even with supplemental O2. Const General: cooperative and no acute distress Orientation/consciousness: oriented to person, oriented to place, oriented to time and patient oriented x3 Limitations: no limitations HENMT Head: Yes normocephalic and Yes atraumatic Ears: external ears normal General nose exam: Normal external nose present Face and sinus: Yes face symmetric Mouth: oropharynx normal and moist mucous membranes Throat: Yes uvula midline Eyes Pupils: Equal, round and reactive pupils present Neck Neck: Yes normal visual inspection and Yes supple Resp Effort & Inspection: normal respiratory effort and able to speak in complete sentences Auscultation: clear to auscultation bilaterally Cardio Rate: regular rate Rhythm: regular rhythm Heart sounds: S1 normal heart sound present and S2 normal heart sound present GI Palpation (GI): Soft to palpation, Tenderness to palpation present (GI) in the LLQ and in the RUQ, no guarding and No Rebound tenderness present Auscultation: normoactive bowel sounds General: Yes no CVA tenderness Back/Spine/Pelvis Back: no CVA tenderness Skin General skin exam: elasticity normal and turgor normal Neuro General: oriented to person, oriented to place, oriented to time, patient oriented x3, moves all extremities, no focal motor deficits and CN's II-XI intact bilaterally Cranial nerves: Yes Equal, round and reactive pupils present Cognition (Neuro): normal cognition Extrem General: Yes full ROM, Yes no pedal edema and Yes no calf tenderness Psych Mental Status: mental status grossly normal Affect: normal affect Thought process: Normal thought process present Medical Decision Making Medical Decision Making [facility] Narrative: Patient is an 78-year-old Martiniquais speaking female with history of HFpEF, SAGAR, left hemiparesis, cardiac pacemaker in situ, asthma, GERD, CVA, DM, HTN presenting to the ED with daughter who reports that patient has been having abdominal pain for the past week. On exam patient is awake, A+Ox3, BP elevated, oxygen low on O2, not baseline when compared to prior visits, afebrile, normal neurological exam without focal deficits, physical exam findings as above. Given reported symptoms and physical exam findings, initial differential includes UTI, diverticulitis, cholecystitis, pneumonia. Less likely obstruction. Labs notable for no leukocytosis, chronic anemia, no evidence of TUTU, normal LFTs. Urinalysis is without evidence of infection. Chest x-ray ordered by environmental field technician notable for bibasilar atelectasis. CT abdomen pelvis and chest notable for bilateral lower lobe and upper lobe infiltrate/atelectasis, no acute abdominal process, minimal fluid between gallbladder and right hepatic lobe, recommend f/u with HIDA scan. My interpretation is in agreement with the radiologist's interpretation. Concern for bilateral pneumonia versus CHF exacerbation. IV ceftriaxone and doxycycline ordered as well as furosemide. Admission accepted by Dr. Mohan. Differential Diagnosis Differential Diagnoses: The differential diagnosis associated with the presentation includes As per [facility] Admission/Observation Consideration of admission/observation: Escalation of care including admission/observation considered Consult Healthcare Provider Management of the patient was discussed with: Hospitalist Lab Data [facility] Lab Attestation statement: I reviewed the patient's lab results. As per [facility] 08/15/23 08:13 08/15/23 08:13 Labs: Lab Results 08/15/23 08/15/23 Range/Units 08:13 15:29 WBC 6.8 (4.8-10.8) X10*3/uL RBC 3.98 L (4.20-5.50) X10*6/uL Hgb 9.5 L (12.0-16.0) g/dl Hct 31.1 L (37.0-47.0) % MCV 78.1 L (80.0-98.0) fL MCH 23.9 L (27.0-33.0) pg MCHC 30.5 L (31.0-35.0) g/dl RDW 16.8 H (11.0-16.0) % Plt Count 247 (160-400) X10*3/uL MPV 9.4 (9.4-12.3) fL Immature Gran % (Auto) 0.6 H (0.0-0.4) % Neut % (Auto) 73.2 H (45-73) % Lymph % (Auto) 16.1 L (20-40) % [place] % (Auto) 7.4 (2-11) % Eos % (Auto) 2.1 (0-4) % Baso % (Auto) 0.6 (0-2) % Lymph # (Auto) 1.1 L (1.2-4.9) X10*3/uL [place] # (Auto) 0.5 (0.1-1.2) X10*3/uL Eos # (Auto) 0.1 (0.0-0.4) X10*3/uL Baso # (Auto) 0.0 (0.0-0.2) X10*3/uL Abs Immat Gran (auto) 0.04 H (0.00-0.03) X10*3/uL Absolute Neuts (auto) 5.0 (2.0-8.3) x10*3/uL Absolute Nucleated RBC 0.000 (0.0-0.012) X10*3/uL Nucleated RBC % (auto) 0.0 (0.0-0.2) /100WBC Sodium 139 (135-145) mmol/L Potassium 3.4 (3.3-5.1) mmol/L Chloride 97 (96-108) mmol/L Carbon Dioxide 34 H (22-29) mmol/L Anion Gap 11 L (12-20) BUN 12 (9-16) mg/dL Creatinine 0.99 (0.5-1.4) mg/dL Estim Creat Clear Calc 44.7 Estimated GFR 54 Random Glucose 144 H (60-115) mg/dL Calcium 9.4 (8.4-10.2) mg/dL Total Bilirubin 0.5 (0.0-1.0) mg/dL AST 30 (5-31) U/L ALT 30 (0-31) U/L Alkaline Phosphatase 88 (39-117) U/L Total Protein 7.1 (6.5-8.0) g/dL Albumin 3.4 L (3.5-5.0) g/dL Urine Color Yellow Urine Appearance Clear Urine pH 8.0 (5.0-9.0) Ur Specific [place] >= 1.030 H (1.005-1.025) Urine Protein 30 (1+) H (Neg-Trace) mg/dL Urine Glucose (UA) Negative (Negative) mg/dL Urine Ketones Negative (Negative) mg/dL Urine Blood Negative (Negative) Urine Nitrite Negative (Negative) Ur Leukocyte Esterase Negative (Negative) Independent Interpretation I performed an independent interpretation of an: Plain X-Ray and CT Scan Interpretation: CXR notable for bibasilar atelectasis. CT abdomen pelvis and chest notable for bilateral lower lobe and upper lobe infiltrate/atelectasis, no acute abdominal process, minimal fluid between gallbladder and right hepatic lobe, recommend f/u with HIDA scan. Radiology Impression Discussion of test interpretation with radiology: I have reviewed the radiologist's reading. Radiologist Impression: XR/XR chest 1V IMPRESSION: 1. Slight accentuation of the pulmonary vasculature. 2. Bibasilar atelectasis. 3. Chronic interstitial lung markings. CT/CT chest wo IV con IMPRESSION: Bilateral lower lobe and upper lobe infiltrate/atelectasis. The lungs are limited in evaluation. The chest is limited in evaluation secondary breathing artifact. No acute process seen in the abdomen. There is minimal fluid in between the gallbladder and the right hepatic lobe as well as perihepatic ascites, nonspecific. If patient has right upper quadrant pain a HIDA scan can be performed. Moderate constipation. Colonic diverticulosis without diverticulitis. Small hiatal hernia. External Record Review External record reviewed: Inpatient record, Office record and Outpatient record Prescription Management I considered prescription management with: Antibiotic Discharge Plan Discharge Prescriptions: No Action (DME) blood-glucose meter [FreeStyle [place] Lite] Kit See Rx Instructions .ROUTE .MEDSUPPLY Qty: 1 0RF Rx Instructions: As directed (DME) FreeStyle Lite Strips Strip See Rx Instructions .Route Qty: 100 1RF Rx Instructions: Use 1 test strip once a day loratadine 10 mg tablet 10 mg PO DAILY Qty: 90 3RF albuterol sulfate [Ventolin HFA] 90 mcg/actuation HFA aerosol inhaler 2 puff inhalation Q6H PRN (Reason: bronchospasm) 30 Days Qty: 6.7 1RF amlodipine 10 mg tablet 10 mg PO DAILY Qty: 90 2RF atorvastatin 80 mg tablet 80 mg PO DAILY Qty: 90 2RF (DME) FreeStyle Lite Strips Strip See Rx Instructions .Route Qty: 100 1RF Rx Instructions: Use 1 test strip once a day cetirizine 5 mg/5 mL solution 10 mg PO DAILY PRN (Reason: allergy symptoms) 30 Days Qty: 150 0RF citalopram 20 mg tablet 20 mg PO DAILY 90 Days Qty: 90 0RF cyanocobalamin (vitamin B-12) [Vitamin B-12] 1,000 mcg tablet 1,000 mcg PO .three times a week 90 Days Qty: 36 2RF dicyclomine 20 mg tablet 20 mg PO TID 30 Days Qty: 90 3RF doxazosin [Cardura] 2 mg tablet 2 mg PO DAILY Qty: 30 11RF ferrous sulfate [iron] 325 mg (65 mg iron) tablet 325 mg PO DAILY 90 Days Qty: 90 1RF folic acid 1 mg tablet 1 mg PO DAILY 90 Days Qty: 90 3RF hydralazine 100 mg tablet 100 mg PO BID Qty: 180 1RF losartan 25 mg tablet 25 mg PO DAILY Qty: 90 1RF metformin 500 mg tablet extended release 24 hr 1,000 mg PO DAILY 90 Days Qty: 180 3RF metoprolol succinate 100 mg tablet extended release 24 hr 100 mg PO DAILY 90 Days Qty: 90 2RF oxybutynin chloride 10 mg tablet extended release 24hr 10 mg PO DAILY Qty: 90 1RF fluticasone propionate 44 mcg/actuation HFA aerosol inhaler 2 puff PO BID Qty: 31.8 6RF meclizine 25 mg tablet 25 mg PO TID PRN (Reason: dizziness) 30 Days Qty: 90 0RF lidocaine 5 % adhesive patch,medicated 1 patch topical DAILY 30 Days Qty: 30 0RF Rx Instructions: leave on most painful area for up to 12 hrs niacin 500 mg tablet extended release 24 hr 500 mg PO BEDTIME 90 Days Qty: 90 0RF furosemide 80 mg tablet 80 mg PO DAILY 30 Days Qty: 30 0RF alendronate [Fosamax] 70 mg tablet 70 mg PO SHAW ergocalciferol (vitamin D2) [Vitamin D2] 1,250 mcg (50,000 unit) capsule 1,250 mcg PO SHAW promethazine 25 mg tablet 25 mg PO TID PRN (Reason: nausea and vomiting) 30 Days Qty: 10 1RF omeprazole 20 mg capsule,delayed release(DR/EC) 20 mg PO DAILY 90 Days Qty: 90 1RF hydrocortisone [Anti-Itch (HC)] 1 % cream 1 appl topical BID PRN (Reason: skin irritation) 14 Days Qty: 28.4 0RF fluticasone propion-salmeterol [Advair HFA] 115-21 mcg/actuation HFA aerosol inhaler 2 puff inhalation Q12H Qty: 12 6RF Print Language: Martiniquais
[2023-08-15 15:38] LABS: Appearance Urine Clear; Color Urine Yellow; Glucose Urine UA Negative (Negative); Leukocyte Esterase Urine Negative (Negative); Nitrite Urine Negative (Negative); Specific Gravity - Urine >= 1.030 (1.005-1.025); UMIC TRIGGER UACC YES; Urine Blood Negative (Negative); Urine Ketones Negative (Negative); Urine Protein 30 (1+) mg/dL (Neg-Trace)
[2023-08-15] MEDS: Doxazosin Mesylate 2 MG TABLET PO (16:30)
[2023-08-15] MEDS: Doxycycline Monohydrate 100 MG CAPSULE PO (16:31)
[2023-08-15] MEDS: cefTRIAXone sodium 1 GM in 0.9 % Sodium Chloride 50 ML IV (16:31)
[2023-08-15] MEDS: amLODIPine Besylate 10 MG TABLET PO (16:31)
--- NOTE | 2023-08-15 16:41 | P.HPHOSP_ITS ---
History of Present Illness Date of Service: 08/15/23 Attending physician on admission: Anay Mohan Chief Complaint: cough, sob, abd pain 78-year-old female with history of heart failure preserved ejection fraction, grade 3 diastolic dysfunction, hyperlipidemia, iron deficiency anemia, asthma with chronic hypoxemic respiratory failure on 2 L supplemental O2 at baseline, [id number] type 2 diabetes, hypertension, osteoporosis presented to the ED earlier today for evaluation of upper abdominal pain, dyspnea, and occasionally productive cough that has been ongoing for 3 days. History is taken in Japanese by Dr. Mohan. The patient is a limited historian and much of the history is taken from her daughter who is at bedside. She does also endorse ST. Has had intermittent diarreah but this is not new. There have been no fevers, chills, congestion, nausea, vomiting, melena, hematochezia, urinary symptoms, lightheadedness, palpitations, chest pain. Per her daughter's report, the patient has been pocketing her pills in her cheeks and spitting them out for unknown duration. She does deny any weight gain. No sick contacts. She was recently discharged from our facility on 07/22 due to CHF exacerbation and was discharged on 2L supplemental O2. Since arrival, patient has been afebrile without any tachycardia. She did desaturate to 85% on 2 L and is now maintaining 90% on 6 L supplemental O2 via nasal cannula. No hypotension. There is no leukocytosis. She has a stable microcytic anemia consistent with baseline. Renal function is baseline, electrolyte levels normal except for CO2 34. CRP 1.81, procalcitonin 0.04. Urinalysis unremarkable. Chest CT shows bilateral lower lobe and upper lobe infiltrate/atelectasis. CT abdomen/pelvis negative for any acute intra- abdominal pathology but shows minimal fluid in between the gallbladder in the right hepatic lobe as well as perihepatic ascites which is nonspecific. In the ED, has received doxycycline, Rocephin, 40 mg IV Lasix, 2 mg doxazosin, 10 mg amlodipine, and DuoNeb. Review of Systems 2 Review of Systems: General: No fevers, malaise, unintentional weight loss HEENT: +sore throat. No nasal congestion, rhinorrhea, sinus pain, ear pain Cardiovascular: +edema. No chest pain, palpitations Respiratory: +sob, +cough. No wheezing GI: +b/l upper abd pain, +diarrhea. No nausea, vomiting, onstipation, melena, hematochezia : No dysuria, hematuria, increased urinary frequency, decreased urinary output MSK: No myalgia, back pain Neuro: No headaches, weakness, paresthesias Skin: No rashes or lesions [facility] Medical History Acute on chronic combined systolic (congestive) and diastolic (congestive) heart failure Acute hypoxemic respiratory failure Acute on chronic heart failure with preserved ejection fraction (HFpEF) Acute on chronic diastolic (congestive) heart failure Hearing loss CHF (congestive heart failure) Iron deficiency anemia Left hemiparesis Cardiac pacemaker in situ Diastolic dysfunction Ear discomfort Otitis media Moderate asthma Pure hypercholesterolemia Osteoporosis B12 deficiency Gallstones GERD (gastroesophageal reflux disease) Hypovitaminosis D History of stroke Diabetes mellitus Essential hypertension Family History Father No problems noted. Mother No problems noted. Surgical History History of pacemaker Social History Household Members: Family Housing: Apartment Housing Other:: lives with daughter Are you a primary care team coordinator scheduler to a significant other at home: No Do you presently have visiting nurse or other home services: Yes Alcohol intake: never Patient Tobacco Use Status: Former Tobacco user Tobacco use type: Cigarette Smoked in Last 30 Days: No e-Cigarette/Vaping Use: Never Used Second Hand Smoke Exposure: No Advance Directives: Yes Advance Directives on File: Yes Advance Directives Date on File: 07/02/21 Do you have a plan to hurt others: No Plan service: No Current occupational status: disabled Cognitive needs: Yes (walker) Hearing needs: No Vision needs: Yes (glasses) Meds Allergies Allergy/AdvReac Type Severity Reaction Status Date / Time egg [EGG] AdvReac Intermediate DIARRHEA Verified 08/15/23 07:46 oats [OATS] AdvReac Intermediate DIARRHEA Verified 08/15/23 07:46 FROM OATMEAL Pioglitazone HCl AdvReac Intermediate edema Uncoded 08/13/23 09:54 Home Medications ?Medication ?Instructions ?Recorded ?Confirmed ?Last Taken ?Type alendronate 70 mg tablet (Fosamax) 70 mg PO SHAW 07/20/23 08/15/23 07/19/23 History ergocalciferol (vitamin D2) 1,250 1,250 mcg PO SHAW 07/20/23 08/15/23 07/19/23 History mcg (50,000 unit) capsule (Vitamin D2) cyanocobalamin (vitamin B-12) 1,000 mcg PO 3XW 08/15/23 08/15/23 Unknown History 1,000 mcg tablet (Vitamin B-12) Physical Exam 2 Vital Signs and Narrative: Vital Signs: Last Vital Signs Temp 98.3 F 08/15/23 13:16 Pulse 74 08/15/23 13:16 Resp 16 08/15/23 13:16 BP 174/77 H 08/15/23 16:31 Pulse Ox 91 L 08/15/23 13:16 O2 Del Method Nasal Cannula 08/15/23 13:16 O2 Flow Rate 2 08/15/23 13:16 Oxygen Flow Rate 2 08/15/23 07:45 BMI result Body Mass Index 26.0 Constitutional - Awake and Alert, No apparent distress Eyes - PERRLA, EOMI Cardiovascular - S1S2, RRR. 2+ edema RLE, 1+ edema LLE. No JVD Respiratory - Normal lung expansion, Normal respiratory effort, No respiratory distress on 6L supplemental O2. Diffuse expiratory coarse wheezing Gastrointestinal - RUQ ttp with negative mcmahan sign. ND; +BS; No rebound or guarding Extremities - no calf tenderness bilaterally, no swelling Skin - Warm/Dry Neurological - Alert & oriented x3 Psychological - Appropriate affect Results Labs 08/15/23 08:13 08/15/23 08:13 Labs: Laboratory Results - last 24 hr 08/15/23 08/15/23 08:13 15:29 MCV 78.1 L MCH 23.9 L MCHC 30.5 L RDW 16.8 H Plt Count 247 MPV 9.4 Immature Gran % (Auto) 0.6 H Neut % (Auto) 73.2 H Lymph % (Auto) 16.1 L [place] % (Auto) 7.4 Eos % (Auto) 2.1 Baso % (Auto) 0.6 Lymph # (Auto) 1.1 L [place] # (Auto) 0.5 Eos # (Auto) 0.1 Baso # (Auto) 0.0 Abs Immat Gran (auto) 0.04 H Absolute Neuts (auto) 5.0 Absolute Nucleated RBC 0.000 Nucleated RBC % (auto) 0.0 Anion Gap 11 L Estim Creat Clear Calc 44.7 Estimated GFR 54 Random Glucose 144 H Calcium 9.4 Total Bilirubin 0.5 AST 30 ALT 30 Alkaline Phosphatase 88 Total Protein 7.1 Albumin 3.4 L Urine Color Yellow Urine Appearance Clear Urine pH 8.0 Ur Specific [place] >= 1.030 H Urine Protein 30 (1+) H Urine Glucose (UA) Negative Urine Ketones Negative Urine Blood Negative Urine Nitrite Negative Ur Leukocyte Esterase Negative Imaging Radiologist's Impressions: Impressions Chest X-Ray 08/15/23 08:28 IMPRESSION: 1. Slight accentuation of the pulmonary vasculature. 2. Bibasilar atelectasis. 3. Chronic interstitial lung markings. Abdomen/Pelvis CT 08/15/23 14:14 IMPRESSION: Bilateral lower lobe and upper lobe infiltrate/atelectasis. The lungs are limited in evaluation. The chest is limited in evaluation secondary breathing artifact. No acute process seen in the abdomen. There is minimal fluid in between the gallbladder and the right hepatic lobe as well as perihepatic ascites, nonspecific. If patient has right upper quadrant pain a HIDA scan can be performed. Moderate constipation. Colonic diverticulosis without diverticulitis. Small hiatal hernia. Chest CT 08/15/23 14:15 IMPRESSION: Bilateral lower lobe and upper lobe infiltrate/atelectasis. The lungs are limited in evaluation. The chest is limited in evaluation secondary breathing artifact. No acute process seen in the abdomen. There is minimal fluid in between the gallbladder and the right hepatic lobe as well as perihepatic ascites, nonspecific. If patient has right upper quadrant pain a HIDA scan can be performed. Moderate constipation. Colonic diverticulosis without diverticulitis. Small hiatal hernia. Assessment and Plan (1) Acute and chronic respiratory failure: Status: Acute (2) Multifocal pneumonia: Status: Acute (3) CHF exacerbation: Status: Acute (4) Asthma exacerbation: Status: Acute Plan 78-year-old female with history of heart failure preserved ejection fraction, grade 3 diastolic dysfunction, hyperlipidemia, iron deficiency anemia, asthma with chronic hypoxemic respiratory failure on 2 L supplemental O2 at baseline, [id number] type 2 diabetes, hypertension, osteoporosis admitted for further management of acute pneumonia with asthma exacerbation and acute on chronic hypoxemic respiratory failure and chf exacerbation. #Acute multifocal pneumonia with moderate persistent asthma exacerbation and acute on chronic hypoxemic respiratory failure -CT chest shows bilateral lower and upper lobe infiltrates -IV ceftriaxone and doxycycline (initiated 08/14) -IV methylprednisolone 40 mg b.i.d. -DuoNebs q.4h while awake and p.r.n. -guaifenesin p.r.n. -check RPP -strep pneumo antigen, Legionella antigen, sputum culture pending -continue maintenance inhalers -follow cbc/cultures. At time of admission, no evidence of sepsis #Acute CHF exacebation -possibly due to medication noncompliance complicated by respiratory infection -echo 07/20/2023-normal LV systolic function with EF 55-60% and grade 3 diastolic dysfunction with moderately elevated right ventricular systolic pressure was mildly elevated right atrial pressures -IV lasix -strict I&O -daily weights -cardiac diet -follow renal fx/lytes #RUQ pain -no leukocytosis or fevers. No associated nausea or vomiting. Possibly referred pain from pneumonia. Negative mcmahan sign -CT abdomen/pelvis negative for any acute intra-abdominal pathology but shows minimal fluid in between the gallbladder in the right hepatic lobe as well as perihepatic ascites which is nonspecific -monitor for now. consider HIDA scan if indicated for worsening symptoms # utt-[id number] type 2 diabetes -POC glucose, diabetic diet -Humalog on sliding scale. Hold metformin # chronic iron deficiency anemia -H/H baseline, continue ferrous sulfate # hypertension -continue metoprolol, losartan, hydralazine, furosemide, amlodipine # hyperlipidemia -continue statin DVT prophylaxis-Lovenox Full code Patient requires inpatient stay at least 2 midnights for management of acute multifocal pneumonia with acute on chronic hypoxemic respiratory failure requiring increased supplemental O2 as well as IV antibiotics. Given significant wheezing and coarse lung sounds, will also require IV steroids, scheduled lytes nebs and close monitoring of respiratory status prevent decompensation. Quality Stroke Does the patient have a stroke diagnosis?: No VTE Prior VTE?: No VTE Risk Level:: Medical - moderate - high VTE Device Contraindication: Treatment Not Indicated VTE Drug Contraindication: N/A - Med Ordered
[2023-08-15 16:47] LABS: Bacteria Urine None Seen (None Seen); Hyaline Casts Urine 0-2 /LPF (0-2); Squamous Epithelial Cell Urine 0-2 /HPF (0-2); WBC Urine 0-5 /HPF (0-5)
[2023-08-15] MEDS: Furosemide 40 MG/4 ML VIAL IVPUSH ×2 (16:49→18:29)
[2023-08-15 16:50] LABS: C Reactive Protein 1.81 mg/dL (< or = 0.50)
[2023-08-15 17:05] LABS: Procalcitonin 0.04 ng/mL
--- NOTE | 2023-08-15 17:14 | PHA.MEDREC ---
Pharmacy Consult ? Medication Reconciliation Pharmacy has completed the medication reconciliation. Family member at bedside brought in patients previous discharge papers as medication list, matches with claim history. Per previous office visit notes, patient was switched from Flovent to Advair and family member confirmed that she stopped Flovent and started the Advair. Advair is not showing on claim history (was prescribed on 08/12) and unable to confirm with pharmacies as they are closed. Will keep Advair on med list according to what family member says. Family member also confirmed furosemide 80 mg daily.
[2023-08-15] MEDS: Albuterol/Iprat 2.5/0.5MG 3 ML AMPUL.NEB INHALE ×2 (17:15→19:25)
[2023-08-15 18:03] LABS: VBG Base Excess 12.4 mmol/L; VBG HCO3 36 mmol/L (22-26); VBG pCO2 42 mmHg; VBG pH 7.53 (7.32-7.43); VBG pO2 70 mmHg
[2023-08-15 18:03] LABS: Venous Blood Gas Refer to POC result
[2023-08-15 18:26] LABS: B Type Natriuretic Peptide 401 pg/mL (<100)
[2023-08-15] MEDS: methylPREDNISolone Sod Succ 40 MG/ML VIAL IVPUSH (18:28)
[2023-08-15] MEDS: Enoxaparin Sodium 40 MG/0.4 ML SYRINGE SUBCUT (18:29)
[2023-08-15 21:56] LABS: Glucose, Whole Blood 213 mg/dL (60-115)
[2023-08-15] MEDS: hydrALAZINE HCl 50 MG TABLET 100 MG PO (22:10)
[2023-08-15] MEDS: Dicyclomine HCl 10 MG CAPSULE 20 MG PO (22:10)
[2023-08-15] MEDS: Insulin Lispro 100 UNIT/ML 3 ML VIAL SUBCUT (22:14)
[2023-08-16] VITALS (13 sets, daily range): BP systolic 108–155; BP diastolic 47–71; PULSE 60–76; RESP 16–20; TEMP 36–36.4; O2SAT 92–96
[2023-08-16] MEDS: 0.9 % Sodium Chloride Flush 3 ML SYRINGE IVFLUSH ×3 (00:27→16:15)
--- NOTE | 2023-08-16 01:51 | PC.NURSE ---
Patient is Greek Speaking only. She is alert and oriented to self, place, and familiar person, unable to state current date. Patient denies any pain, states she ambulates with supervision of her daughter at baseline. VSS. Patient medicated per MAR. Patient takes her oral medications whole with water, no trouble swallowing noted. Skin is intact. Patient provided with a warm blanket, currently resting comfortable in a stretcher bed, call bonilla in patient's reach. Plan of care ongoing.
[2023-08-16] MEDS: Doxycycline Hyclate 100 MG in 0.9 % Sodium Chloride 250 ML 166.67 MG IV ×2 (04:07→17:02)
[2023-08-16] MEDS: methylPREDNISolone Sod Succ 40 MG/ML VIAL IVPUSH ×2 (04:39→16:59)
[2023-08-16 04:56] LABS: MANUAL DIFF FLAG NO
[2023-08-16 04:58] LABS: Basophils Percent Auto 0.3 % (0-2); Hematocrit 31.8 % (37.0-47.0); Hemoglobin 9.9 g/dl (12.0-16.0); Imm Gran Abs Auto 0.02 X10*3/uL (0.00-0.03); Imm Gran Pct Auto 0.3 % (0.0-0.4); Lymphocytes Percent Auto 15.5 % (20-40); Mean Corpuscular HGB Conc 31.1 g/dl (31.0-35.0); Mean Corpuscular Hemoglobin 23.4 pg (27.0-33.0); Mean Corpuscular Volume 75.2 fL (80.0-98.0); Mean Platelet Volume 9.5 fL (9.4-12.3); Monocytes Absolute Auto 0.1 X10*3/uL (0.1-1.2); Monocytes Percent Auto 0.9 % (2-11); Neutrophils Absolute Auto 5.3 x10*3/uL (2.0-8.3); Platelet Count 258 X10*3/uL (160-400); Red Blood Count 4.23 X10*6/uL (4.20-5.50); Red Cell Distribution Width 16.8 % (11.0-16.0); White Blood Count 6.4 X10*3/uL (4.8-10.8)
[2023-08-16 05:17] LABS: Anion Gap 15 (12-20); Blood Urea Nitrogen 14 mg/dL (9-16); Calcium 9.3 mg/dL (8.4-10.2); Carbon Dioxide 30 mmol/L (22-29); Chloride 95 mmol/L (96-108); Creatinine Clr Calc Pharmacy 46.1; Estimated Glomerular Filt Rate 56; Glucose Random 213 mg/dL (60-115); Potassium 3.4 mmol/L (3.3-5.1); Sodium 137 mmol/L (135-145)
--- NOTE | 2023-08-16 05:24 | PC.NURSE ---
Patient accidentally pulled out IV line from L AC, new 20 G IV line established in R AC.
[2023-08-16 07:17] LABS: Glucose, Whole Blood 204 mg/dL (60-115)
[2023-08-16] MEDS: Insulin Lispro 100 UNIT/ML 3 ML VIAL SUBCUT ×4 (07:53→20:55)
[2023-08-16] MEDS: Albuterol/Iprat 2.5/0.5MG 3 ML AMPUL.NEB INHALE ×3 (08:34→20:19)
[2023-08-16] MEDS: Ferrous Sulfate 324 MG TABLET.DR PO (09:38)
[2023-08-16] MEDS: Losartan Potassium 25 MG TABLET PO (09:38)
[2023-08-16] MEDS: oxyBUTYnin chloride ER 5 MG TAB.ER.24 10 MG PO (09:39)
[2023-08-16] MEDS: Dicyclomine HCl 10 MG CAPSULE 20 MG PO ×3 (09:39→20:56)
[2023-08-16] MEDS: hydrALAZINE HCl 50 MG TABLET 100 MG PO ×2 (09:39→20:55)
[2023-08-16] MEDS: Atorvastatin Calcium 80 MG TABLET PO (09:40)
[2023-08-16] MEDS: Folic Acid 1 MG TABLET PO (09:40)
[2023-08-16] MEDS: amLODIPine Besylate 10 MG TABLET PO (09:40)
[2023-08-16] MEDS: Escitalopram Oxalate 10 MG TABLET PO (09:40)
[2023-08-16] MEDS: Doxazosin Mesylate 2 MG TABLET PO (09:40)
[2023-08-16] MEDS: Omeprazole 20 MG CAPSULE.DR PO (09:40)
[2023-08-16] MEDS: Loratadine 10 MG TABLET PO (09:40)
[2023-08-16] MEDS: Furosemide 100 MG/10 ML VIAL 80 MG IVPUSH (09:41)
[2023-08-16] MEDS: Metoprolol Succinate ER 100 MG TAB.ER.24H PO (09:41)
--- NOTE | 2023-08-16 11:01 | P.PNIM_ITS ---
Subjective Subjective Date of Service: 08/16/23 Interval History: This history was taken in Portuguese from the patient. Breathing improved No chest pain Denies RUQ pain Review of Systems Review of Systems: Yes all other systems are reviewed and are negative Physical Exam 2 Vital Signs: Vital Signs: Last Vital Signs Temp 96.8 F 08/16/23 08:51 Pulse 75 08/16/23 09:41 Resp 18 08/16/23 08:51 BP 155/71 H 08/16/23 09:41 Pulse Ox 92 08/16/23 08:51 O2 Del Method Nasal Cannula 08/16/23 08:51 O2 Flow Rate 4.0 08/16/23 08:51 Oxygen Flow Rate 2 08/15/23 07:45 BMI result Body Mass Index 26.0 Gen: in no acute distress HEENT: sclera anicteric, moist mucus membranes Neck: supple, JVD present Lungs: diminished, scattered expiratory wheezing Heart: regular rate and rhythm, no murmurs Abd: soft, non-tender, non-distended Ext: no edema Skin: warm/well-perfused Neuro: alert and oriented x3, no focal findings Psych: appropriate affect Objective Data Active Medications Acetaminophen (Acetaminophen 325 Mg Tablet) 650 mg PO Q6H PRN PRN Reason: Pain, Mild (Pain Scale 1-3) Albuterol/Ipratropium (Albuterol/Iprat 2.5/0.5mg 3 Ml Ampul.Neb) 3 ml INHALE RQ4H WHILE AWAKE [facility] Last Admin: 08/16/23 08:34 Dose: 3 ml Documented By: DIONICIO Albuterol/Ipratropium (Albuterol/Iprat 2.5/0.5mg 3 Ml Ampul.Neb) 3 ml INHALE RQ4H WHILE AWAKE PRN PRN Reason: Shortness of Breath/Wheezing Amlodipine Besylate (Amlodipine Besylate 10 Mg Tablet) 10 mg PO DAILY [facility]; Protocol Last Admin: 08/16/23 09:40 Dose: 10 mg Documented By: TALIA Atorvastatin Calcium (Atorvastatin Calcium 80 Mg Tablet) 80 mg PO DAILY [facility] Last Admin: 08/16/23 09:40 Dose: 80 mg Documented By: TALIA Cyanocobalamin (Cyanocobalamin (Vitamin B-12) 1,000 Mcg Tablet) 1,000 mcg PO MoWeFr [facility] Dicyclomine HCl (Dicyclomine Hcl 10 Mg Capsule) 20 mg PO TID [facility] Last Admin: 08/16/23 09:39 Dose: 20 mg Documented By: TALIA Doxazosin Mesylate (Doxazosin Mesylate 2 Mg Tablet) 2 mg PO DAILY [facility]; Protocol Last Admin: 08/16/23 09:40 Dose: 2 mg Documented By: TALIA Enoxaparin Sodium (Enoxaparin Sodium 40 Mg/0.4 Ml Syringe) 40 mg SUBCUT Q24H [facility] Last Admin: 08/15/23 18:29 Dose: 40 mg Documented By: JOE Ergocalciferol (Ergocalciferol (Vitamin D2) 1,250 Mcg Capsule) 1,250 mcg PO SHAW [facility] Last Admin: 08/15/23 18:36 Dose: Not Given Documented By: JOE Non-Admin Reason: Med Not Available Escitalopram Oxalate (Escitalopram Oxalate 10 Mg Tablet) 10 mg PO DAILY [facility] Last Admin: 08/16/23 09:40 Dose: 10 mg Documented By: TALIA Ferrous Sulfate (Ferrous Sulfate 324 Mg Tablet.Dr) 324 mg PO DAILY [facility] Last Admin: 08/16/23 09:38 Dose: 324 mg Documented By: TALIA Fluticasone/Vilanterol (Fluticasone/Vilanterol 100/25 Blst.W.Dev) 1 puff INHALE RDAILY [facility] Last Admin: 08/16/23 08:32 Dose: Not Given Documented By: DIONICIO Non-Admin Reason: Med Not Available Folic Acid (Folic Acid 1 Mg Tablet) 1 mg PO DAILY [facility] Last Admin: 08/16/23 09:40 Dose: 1 mg Documented By: TALIA Furosemide (Furosemide 100 Mg/10 Ml Vial) 80 mg IVPUSH DAILY [facility]; Protocol Last Admin: 08/16/23 09:41 Dose: 80 mg Documented By: TALIA Glucose (Glucose Gel 15 Gm Gel..Gram.) 15 gm PO Q15M PRN; Protocol PRN Reason: per Hypoglycemia Standing Ord. Guaifenesin (Guaifenesin 200 Mg/10 Ml 10 Ml Liquid) 10 ml PO Q4H PRN PRN Reason: Cough Hydralazine HCl (Hydralazine Hcl 50 Mg Tablet) 100 mg PO BID [facility]; Protocol Last Admin: 08/16/23 09:39 Dose: 100 mg Documented By: TALIA Hydrocortisone (Hydrocortisone 1 % Cream 28.35 Gm Tube) 1 appl TOPICAL BID PRN; Protocol PRN Reason: skin irritation Ceftriaxone Sodium 1 gm/ (Sodium Chloride) 50 mls @ 100 mls/hr IV Q24H [facility] Doxycycline Hyclate 100 mg/ (Sodium Chloride) 250 mls @ 166.67 mls/hr IV Q12H [facility] Last Infusion: 08/16/23 07:13 Dose: Infused Documented By: SON Dextrose (D10) 250 mls @ 750 mls/hr IV Q15M PRN; Protocol PRN Reason: per Hypoglycemia Standing Ord. Insulin Human Lispro (Insulin Lispro 100 Unit/Ml 3 Ml Vial) 0 unit SUBCUT QIDACHS [facility]; Protocol Last Admin: 08/16/23 07:53 Dose: 4 unit Documented By: SON Lidocaine (Lidocaine 4 % Patch Adh..Patch) 1 patch TRANSDERMA DAILY [facility] Last Admin: 08/16/23 09:38 Dose: Not Given Documented By: TALIA Non-Admin Reason: Patient Refused Loratadine (Loratadine 10 Mg Tablet) 10 mg PO DAILY [facility] Last Admin: 08/16/23 09:40 Dose: 10 mg Documented By: TALIA Losartan Potassium (Losartan Potassium 25 Mg Tablet) 25 mg PO DAILY [facility]; Protocol Last Admin: 08/16/23 09:38 Dose: 25 mg Documented By: TALIA Magnesium Hydroxide (Milk Of Magnesia 30 Ml Oral.Susp) 30 ml PO DAILY PRN PRN Reason: Constipation Meclizine HCl (Meclizine Hcl 25 Mg Tablet) 25 mg PO TID PRN PRN Reason: dizziness Methylprednisolone Sodium Succinate (Methylprednisolone Sod Succ 40 Mg/Ml Vial) 40 mg IVPUSH Q12H [facility] Last Admin: 08/16/23 04:39 Dose: 40 mg Documented By: DIAMANTE Metoprolol Succinate (Metoprolol Succinate Er 100 Mg Tab.Er.24h) 100 mg PO DAILY [facility]; Protocol Last Admin: 08/16/23 09:41 Dose: 100 mg Documented By: TALIA Niacin (Niacin Er 250 Mg Tablet.Er) 500 mg PO BEDTIME [facility] Last Admin: 08/15/23 22:20 Dose: 500 mg Documented By: DIAMANTE Omeprazole (Omeprazole 20 Mg Capsule.Dr) 20 mg PO DAILY [facility] Last Admin: 08/16/23 09:40 Dose: 20 mg Documented By: TALIA Ondansetron HCl (Ondansetron Hcl 4 Mg/2 Ml Vial) 4 mg IVPUSH Q8H PRN PRN Reason: Nausea and Vomiting Oxybutynin Chloride (Oxybutynin Chloride Er 5 Mg Tab.Er.24) 10 mg PO DAILY [facility] Last Admin: 08/16/23 09:39 Dose: 10 mg Documented By: TALIA Promethazine HCl (Promethazine Hcl 25 Mg Tablet) 25 mg PO TID PRN PRN Reason: nausea and vomiting Sodium Chloride (0.9 % Sodium Chloride Flush 3 Ml Syringe) 3 ml IVFLUSH QSHIFT [facility] Last Admin: 08/16/23 08:02 Dose: 3 ml Documented By: SON Labs 08/16/23 04:46 08/16/23 04:46 Labs: Laboratory Results - last 24 hr 08/15/23 08/15/23 08/15/23 08:13 15:29 17:52 MCV MCH MCHC RDW Plt Count MPV Immature Gran % (Auto) Neut % (Auto) Lymph % (Auto) [place] % (Auto) Eos % (Auto) Baso % (Auto) Lymph # (Auto) [place] # (Auto) Eos # (Auto) Baso # (Auto) Abs Immat Gran (auto) Absolute Neuts (auto) Absolute Nucleated RBC Nucleated RBC % (auto) VBG pH VBG pCO2 VBG pO2 VBG HCO3 VBG O2 Saturation VBG Base Excess Anion Gap Estim Creat Clear Calc Estimated GFR POC Glucose Random Glucose Calcium C-Reactive Protein 1.81 H B-Natriuretic Peptide 401 H Procalcitonin 0.04 Urine Color Yellow Urine Appearance Clear Urine pH 8.0 Ur Specific [place] >= 1.030 H Urine Protein 30 (1+) H Urine Glucose (UA) Negative Urine Ketones Negative Urine Blood Negative Urine Nitrite Negative Ur Leukocyte Esterase Negative Urine RBC 3-5 H Urine WBC 0-5 Ur Squamous Epith Cells 0-2 Urine Bacteria None Seen Hyaline Casts 0-2 08/15/23 08/15/23 08/16/23 17:55 21:52 04:46 MCV 75.2 L MCH 23.4 L MCHC 31.1 RDW 16.8 H Plt Count 258 MPV 9.5 Immature Gran % (Auto) 0.3 Neut % (Auto) 83.0 H Lymph % (Auto) 15.5 L [place] % (Auto) 0.9 L Eos % (Auto) 0.0 Baso % (Auto) 0.3 Lymph # (Auto) 1.0 L [place] # (Auto) 0.1 Eos # (Auto) 0.0 Baso # (Auto) 0.0 Abs Immat Gran (auto) 0.02 Absolute Neuts (auto) 5.3 Absolute Nucleated RBC 0.000 Nucleated RBC % (auto) 0.0 VBG pH 7.53 H VBG pCO2 42 VBG pO2 70 VBG HCO3 36 H VBG O2 Saturation 96.0 VBG Base Excess 12.4 Anion Gap 15 Estim Creat Clear Calc 46.1 Estimated GFR 56 POC Glucose 213 H Random Glucose 213 H Calcium 9.3 C-Reactive Protein B-Natriuretic Peptide Procalcitonin Urine Color Urine Appearance Urine pH Ur Specific [place] Urine Protein Urine Glucose (UA) Urine Ketones Urine Blood Urine Nitrite Ur Leukocyte Esterase Urine RBC Urine WBC Ur Squamous Epith Cells Urine Bacteria Hyaline Casts 08/16/23 07:12 MCV MCH MCHC RDW Plt Count MPV Immature Gran % (Auto) Neut % (Auto) Lymph % (Auto) [place] % (Auto) Eos % (Auto) Baso % (Auto) Lymph # (Auto) [place] # (Auto) Eos # (Auto) Baso # (Auto) Abs Immat Gran (auto) Absolute Neuts (auto) Absolute Nucleated RBC Nucleated RBC % (auto) VBG pH VBG pCO2 VBG pO2 VBG HCO3 VBG O2 Saturation VBG Base Excess Anion Gap Estim Creat Clear Calc Estimated GFR POC Glucose 204 H Random Glucose Calcium C-Reactive Protein B-Natriuretic Peptide Procalcitonin Urine Color Urine Appearance Urine pH Ur Specific [place] Urine Protein Urine Glucose (UA) Urine Ketones Urine Blood Urine Nitrite Ur Leukocyte Esterase Urine RBC Urine WBC Ur Squamous Epith Cells Urine Bacteria Hyaline Casts Assessment and Plan (1) CHF exacerbation: Status: Acute Plan d2 78yo F with HFpEF/grade 3 diastolic dysfunction, SAGAR, asthma, HLD, chronic hypoxic resp failure on 2L O2, DM2, HTN, osteoporosis presenting with dyspnea, cough and upper abd pain found to be hypoxic and admitted for CHF exacerbation, COPD exacerbation, and possible PNA acute/chronic HFpEF - continue IV furosemide, monitor I/O, weights, BNP, BMP, Mg - TTE 07/20/23: LVEF 55-60%, grade 3 diastolic dysfunction, moderate elevated RVSP and mildly elevated RAP - continue antihypertensives: amlodipine, doxazosin, hydralazine, metoprolol succinate, multifocal PNA - ceftriaxone + doxycycline 08/14-, follow BCx, urinary antigens for Legionella and pneumococcus as well as respiratory pathogen panel pending COPD exacerbation - continue steroids, standing/prn nebs, Breo acute/chronic hypoxic resp failure - wean O2 to baseline as tolerated as above conditions resolve [currently on 4L, on 2L at home] RUQ pain with minimal fluid between gallbladder and R hepatic lobe - likely referred pain from pneumonia; pain has resolved; consider HIDA if symptoms worsen/recur DM2 - hold MTF, continue marie-dose lispro SAGAR - Fe repletion HTN - antihypertensives as above HLD - statin mood disorder - escitalopram VTE ppx - LMWH dispo - TBD In my clinical judgment, the patient requires continued inpatient hospitalization for the following reasons: hypoxia, diuresis, IV ABX Total time managing care of this patient today: 50 minutes. Quality Stroke Does the patient have a stroke diagnosis?: No VTE Prior VTE?: No VTE Risk Level:: Medical - moderate - high VTE Device Contraindication: Treatment Not Indicated VTE Drug Contraindication: N/A - Med Ordered
--- NOTE | 2023-08-16 11:18 | MHC.CM.PN ---
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
[2023-08-16 11:39] LABS: Glucose, Whole Blood 398 mg/dL (60-115)
[2023-08-16] MEDS: Cyanocobalamin (Vitamin B-12) 1,000 MCG TABLET 1000 MCG PO (12:29)
[2023-08-16 14:06] LABS: Adenovirus PCR Not Detected (Not Detect.); Bordetella parapertussis PCR Not Detected (Not Detect.); Bordetella pertussis PCR Not Detected (Not Detect.); Chlamydia pneumoniae PCR Not Detected (Not Detect.); Coronavirus 229E PCR Not Detected (Not Detect.); Coronavirus HKU1 PCR Not Detected (Not Detect.); Coronavirus NL63 PCR Not Detected (Not Detect.); Coronavirus OC43 PCR Not Detected (Not Detect.); Human metapneumovirus PCR Not Detected (Not Detect.); Influenza A PCR Not Detected (Not Detect.); Influenza B PCR Not Detected (Not Detect.); Mycoplasma pneumoniae PCR Not Detected (Not Detect.); Parainfluenza 1 PCR Not Detected (Not Detect.); Parainfluenza 2 PCR Not Detected (Not Detect.); Parainfluenza 3 PCR Not Detected (Not Detect.); Parainfluenza 4 PCR Not Detected (Not Detect.); RSV PCR Not Detected (Not Detect.); Rhino/Enterovirus PCR Not Detected (Not Detect.)
[2023-08-16 14:18] LABS: SARS-CoV-2 PCR Not Detected (Not Detect.)
[2023-08-16] MEDS: cefTRIAXone sodium 1 GM in 0.9 % Sodium Chloride 50 ML IV (16:15)
[2023-08-16 16:25] LABS: Glucose, Whole Blood 285 mg/dL (60-115)
[2023-08-16] MEDS: Enoxaparin Sodium 40 MG/0.4 ML SYRINGE SUBCUT (17:01)
[2023-08-16 20:18] LABS: Glucose, Whole Blood 255 mg/dL (60-115)
[2023-08-17] MEDS: 0.9 % Sodium Chloride Flush 3 ML SYRINGE IVFLUSH ×4 (00:52→22:21)
[2023-08-17 03:31] VITALS: BP 135/61; PULSE 64; RESP 14; TEMP 36.6; O2SAT 98
[2023-08-17] MEDS: Doxycycline Hyclate 100 MG in 0.9 % Sodium Chloride 250 ML 166.67 MG IV (05:06)
[2023-08-17] MEDS: methylPREDNISolone Sod Succ 40 MG/ML VIAL IVPUSH (05:07)
[2023-08-17 07:19] VITALS: BP 129/60; PULSE 66; RESP 16; TEMP 36.1; O2SAT 95
[2023-08-17 07:35] LABS: Glucose, Whole Blood 243 mg/dL (60-115)
[2023-08-17] MEDS: Insulin Lispro 100 UNIT/ML 3 ML VIAL SUBCUT ×4 (07:41→21:03)
[2023-08-17] MEDS: Furosemide 100 MG/10 ML VIAL 80 MG IVPUSH (07:43)
[2023-08-17] MEDS: Doxazosin Mesylate 2 MG TABLET PO (07:47)
[2023-08-17] MEDS: amLODIPine Besylate 10 MG TABLET PO (07:47)
[2023-08-17] MEDS: Losartan Potassium 25 MG TABLET PO (07:47)
[2023-08-17] MEDS: hydrALAZINE HCl 50 MG TABLET 100 MG PO ×2 (07:47→21:04)
[2023-08-17] MEDS: Dicyclomine HCl 10 MG CAPSULE 20 MG PO ×3 (07:48→21:03)
[2023-08-17] MEDS: Folic Acid 1 MG TABLET PO (07:48)
[2023-08-17] MEDS: oxyBUTYnin chloride ER 5 MG TAB.ER.24 10 MG PO (07:48)
[2023-08-17] MEDS: Metoprolol Succinate ER 100 MG TAB.ER.24H PO (07:48)
[2023-08-17] MEDS: Atorvastatin Calcium 80 MG TABLET PO (07:48)
[2023-08-17] MEDS: Ferrous Sulfate 324 MG TABLET.DR PO (07:48)
[2023-08-17] MEDS: Escitalopram Oxalate 10 MG TABLET PO (07:48)
[2023-08-17] MEDS: Omeprazole 20 MG CAPSULE.DR PO (07:48)
[2023-08-17] MEDS: Loratadine 10 MG TABLET PO (07:48)
[2023-08-17 07:49] LABS: Anion Gap 16 (12-20); B Type Natriuretic Peptide 256 pg/mL (<100); Blood Urea Nitrogen 25 mg/dL (9-16); Calcium 9.1 mg/dL (8.4-10.2); Carbon Dioxide 27 mmol/L (22-29); Chloride 95 mmol/L (96-108); Creatinine Clr Calc Pharmacy 35.1; Estimated Glomerular Filt Rate 41; Glucose Random 239 mg/dL (60-115); Magnesium 1.5 mg/dL (1.6-2.6); Potassium 4.4 mmol/L (3.3-5.1); Sodium 134 mmol/L (135-145)
[2023-08-17 08:25] LABS: Procalcitonin 0.07 ng/mL
[2023-08-17] MEDS: Magnesium Sulfate/H2O 2 GM/50 ML PIGGYBACK IV (08:34)
[2023-08-17] MEDS: Doxycycline Monohydrate 100 MG CAPSULE PO ×2 (08:36→21:04)
--- NOTE | 2023-08-17 09:36 | HO.PM.IMPN ---
Subjective Subjective Date of Service: 08/17/23 Interval History: This history was taken in Japanese from the patient. breathing improved coughing no abd pain no chest pain Review of Systems Review of Systems: Yes all other systems are reviewed and are negative Physical Exam Vital Signs: Vital Signs: Last Vital Signs Temp 97.0 F 08/17/23 07:19 Pulse 66 08/17/23 07:19 Resp 16 08/17/23 07:19 BP 129/60 08/17/23 07:19 Pulse Ox 95 08/17/23 07:19 O2 Del Method Nasal Cannula 08/17/23 07:19 O2 Flow Rate 3.0 08/17/23 07:19 Oxygen Flow Rate 2 08/15/23 07:45 BMI result Body Mass Index 26.0 Gen: in no acute distress HEENT: sclera anicteric, moist mucus membranes Neck: supple, JVD present Lungs: diminished Heart: regular rate and rhythm, no murmurs Abd: soft, non-tender, non-distended Ext: no edema Skin: warm/well-perfused Neuro: alert and oriented x3, no focal findings Psych: appropriate affect Objective Data Active Medications Acetaminophen (Acetaminophen 325 Mg Tablet) 650 mg PO Q6H PRN PRN Reason: Pain, Mild (Pain Scale 1-3) Albuterol/Ipratropium (Albuterol/Iprat 2.5/0.5mg 3 Ml Ampul.Neb) 3 ml INHALE RQ4H WHILE AWAKE [facility] Last Admin: 08/17/23 07:27 Dose: Not Given Documented By: DIANE Non-Admin Reason: Patient Asleep Albuterol/Ipratropium (Albuterol/Iprat 2.5/0.5mg 3 Ml Ampul.Neb) 3 ml INHALE RQ4H WHILE AWAKE PRN PRN Reason: Shortness of Breath/Wheezing Amlodipine Besylate (Amlodipine Besylate 10 Mg Tablet) 10 mg PO DAILY [facility]; Protocol Last Admin: 08/17/23 07:47 Dose: 10 mg Documented By: ADELAIDE Atorvastatin Calcium (Atorvastatin Calcium 80 Mg Tablet) 80 mg PO DAILY [facility] Last Admin: 08/17/23 07:48 Dose: 80 mg Documented By: ADELAIDE Cyanocobalamin (Cyanocobalamin (Vitamin B-12) 1,000 Mcg Tablet) 1,000 mcg PO MoWeFr [facility] Last Admin: 08/16/23 12:29 Dose: 1,000 mcg Documented By: ADELAIDE Dicyclomine HCl (Dicyclomine Hcl 10 Mg Capsule) 20 mg PO TID [facility] Last Admin: 08/17/23 07:48 Dose: 20 mg Documented By: ADELAIDE Doxazosin Mesylate (Doxazosin Mesylate 2 Mg Tablet) 2 mg PO DAILY [facility]; Protocol Last Admin: 08/17/23 07:47 Dose: 2 mg Documented By: ADELAIDE Doxycycline Monohydrate (Doxycycline Monohydrate 100 Mg Capsule) 100 mg PO BID [facility] Last Admin: 08/17/23 08:36 Dose: 100 mg Documented By: ADELAIDE Enoxaparin Sodium (Enoxaparin Sodium 40 Mg/0.4 Ml Syringe) 40 mg SUBCUT Q24H [facility] Last Admin: 08/16/23 17:01 Dose: 40 mg Documented By: ADELAIDE Ergocalciferol (Ergocalciferol (Vitamin D2) 1,250 Mcg Capsule) 1,250 mcg PO SHAW [facility] Last Admin: 08/15/23 18:36 Dose: Not Given Documented By: JOE Non-Admin Reason: Med Not Available Escitalopram Oxalate (Escitalopram Oxalate 10 Mg Tablet) 10 mg PO DAILY [facility] Last Admin: 08/17/23 07:48 Dose: 10 mg Documented By: ADELAIDE Ferrous Sulfate (Ferrous Sulfate 324 Mg Tablet.Dr) 324 mg PO DAILY [facility] Last Admin: 08/17/23 07:48 Dose: 324 mg Documented By: ADELAIDE Fluticasone/Vilanterol (Fluticasone/Vilanterol 100/25 Blst.W.Dev) 1 puff INHALE RDAILY [facility] Last Admin: 08/17/23 07:27 Dose: Not Given Documented By: DIANE Non-Admin Reason: Decreased Blood Pressure Folic Acid (Folic Acid 1 Mg Tablet) 1 mg PO DAILY [facility] Last Admin: 08/17/23 07:48 Dose: 1 mg Documented By: ADELAIDE Furosemide (Furosemide 100 Mg/10 Ml Vial) 80 mg IVPUSH DAILY [facility]; Protocol Last Admin: 08/17/23 07:43 Dose: 80 mg Documented By: ADELAIDE Glucose (Glucose Gel 15 Gm Gel..Gram.) 15 gm PO Q15M PRN; Protocol PRN Reason: per Hypoglycemia Standing Ord. Guaifenesin (Guaifenesin 200 Mg/10 Ml 10 Ml Liquid) 10 ml PO Q4H PRN PRN Reason: Cough Hydralazine HCl (Hydralazine Hcl 50 Mg Tablet) 100 mg PO BID [facility]; Protocol Last Admin: 08/17/23 07:47 Dose: 100 mg Documented By: ADELAIDE Hydrocortisone (Hydrocortisone 1 % Cream 28.35 Gm Tube) 1 appl TOPICAL BID PRN; Protocol PRN Reason: skin irritation Ceftriaxone Sodium 1 gm/ (Sodium Chloride) 50 mls @ 100 mls/hr IV Q24H [facility] Last Infusion: 08/16/23 17:01 Dose: Infused Documented By: ADELAIDE Dextrose (D10) 250 mls @ 750 mls/hr IV Q15M PRN; Protocol PRN Reason: per Hypoglycemia Standing Ord. Magnesium Sulfate (Magnesium Sulfate/H2o) 2 gm in 50 mls @ 25 mls/hr IV ONCE ONE Stop: 08/17/23 10:17 Last Admin: 08/17/23 08:34 Dose: 25 mls/hr Documented By: ADELAIDE Insulin Human Lispro (Insulin Lispro 100 Unit/Ml 3 Ml Vial) 0 unit SUBCUT QIDACHS [facility]; Protocol Last Admin: 08/17/23 07:41 Dose: 6 unit Documented By: ADELAIDE Lidocaine (Lidocaine 4 % Patch Adh..Patch) 1 patch TRANSDERMA DAILY [facility] Last Admin: 08/16/23 09:38 Dose: Not Given Documented By: BRUNONM Non-Admin Reason: Patient Refused Loratadine (Loratadine 10 Mg Tablet) 10 mg PO DAILY [facility] Last Admin: 08/17/23 07:48 Dose: 10 mg Documented By: ADELAIDE Losartan Potassium (Losartan Potassium 25 Mg Tablet) 25 mg PO DAILY [facility]; Protocol Last Admin: 08/17/23 07:47 Dose: 25 mg Documented By: ADELAIDE Magnesium Hydroxide (Milk Of Magnesia 30 Ml Oral.Susp) 30 ml PO DAILY PRN PRN Reason: Constipation Meclizine HCl (Meclizine Hcl 25 Mg Tablet) 25 mg PO TID PRN PRN Reason: dizziness Methylprednisolone Sodium Succinate (Methylprednisolone Sod Succ 40 Mg/Ml Vial) 40 mg IVPUSH Q24H [facility] Metoprolol Succinate (Metoprolol Succinate Er 100 Mg Tab.Er.24h) 100 mg PO DAILY [facility]; Protocol Last Admin: 08/17/23 07:48 Dose: 100 mg Documented By: ADELAIDE Niacin (Niacin Er 250 Mg Tablet.Er) 500 mg PO BEDTIME [facility] Last Admin: 08/16/23 20:56 Dose: 500 mg Documented By: MAGDA Omeprazole (Omeprazole 20 Mg Capsule.Dr) 20 mg PO DAILY [facility] Last Admin: 08/17/23 07:48 Dose: 20 mg Documented By: ADELAIDE Ondansetron HCl (Ondansetron Hcl 4 Mg/2 Ml Vial) 4 mg IVPUSH Q8H PRN PRN Reason: Nausea and Vomiting Oxybutynin Chloride (Oxybutynin Chloride Er 5 Mg Tab.Er.24) 10 mg PO DAILY [facility] Last Admin: 08/17/23 07:48 Dose: 10 mg Documented By: ADELAIDE Promethazine HCl (Promethazine Hcl 25 Mg Tablet) 25 mg PO TID PRN PRN Reason: nausea and vomiting Sodium Chloride (0.9 % Sodium Chloride Flush 3 Ml Syringe) 3 ml IVFLUSH QSHIFT [facility] Last Admin: 08/17/23 07:44 Dose: 3 ml Documented By: ADELAIDE Labs 08/16/23 04:46 08/17/23 07:14 Labs: Laboratory Results - last 24 hr 08/15/23 08/16/23 08/16/23 17:53 11:32 16:20 Hold Purple Top Anion Gap Estim Creat Clear Calc Estimated GFR POC Glucose 398 H* 285 H Random Glucose Calcium Magnesium B-Natriuretic Peptide Procalcitonin Respiratory Panel [facility] See Note Adenovirus (Rapid PCR) Not Detected B.pert (TEM-PCR) Not Detected B.parapertussis DNA PCR Not Detected C. pneumoniae DNA (PCR) Not Detected Coronavirus OC43 (PCR) Not Detected Coronavirus HKU1 (PCR) Not Detected Coronavirus 229E (PCR) Not Detected Coronavirus NL63 (PCR) Not Detected Human Metapneumovir PCR Not Detected Influenza A (RT-PCR) Not Detected Influenza B (RT-PCR) Not Detected M. pneumoniae (PCR) Not Detected Parainfluenza 1 (PCR) Not Detected Parainfluenza 2 (PCR) Not Detected Parainfluenza 3 (PCR) Not Detected Parainfluenza 4 (PCR) Not Detected RSV (PCR) Not Detected Entero/Rhino (PCR) Not Detected SARS-CoV-2 RNA (RT-PCR) Not Detected 08/16/23 08/17/23 08/17/23 20:12 07:14 07:21 Hold Purple Top SEE NOTE Anion Gap 16 Estim Creat Clear Calc 35.1 Estimated GFR 41 POC Glucose 255 H 243 H Random Glucose 239 H Calcium 9.1 Magnesium 1.5 L B-Natriuretic Peptide 256 H Procalcitonin 0.07 Respiratory Panel [facility] Adenovirus (Rapid PCR) B.pert (TEM-PCR) B.parapertussis DNA PCR C. pneumoniae DNA (PCR) Coronavirus OC43 (PCR) Coronavirus HKU1 (PCR) Coronavirus 229E (PCR) Coronavirus NL63 (PCR) Human Metapneumovir PCR Influenza A (RT-PCR) Influenza B (RT-PCR) M. pneumoniae (PCR) Parainfluenza 1 (PCR) Parainfluenza 2 (PCR) Parainfluenza 3 (PCR) Parainfluenza 4 (PCR) RSV (PCR) Entero/Rhino (PCR) SARS-CoV-2 RNA (RT-PCR) Assessment and Plan (1) CHF exacerbation: Status: Acute Plan d3 78yo F with HFpEF/grade 3 diastolic dysfunction, SAGAR, asthma, HLD, chronic hypoxic resp failure on 2L O2, DM2, HTN, osteoporosis presenting with dyspnea, cough and upper abd pain found to be hypoxic and admitted for CHF exacerbation + COPD exacerbation, possible PNA acute/chronic HFpEF - continue IV furosemide 1 more day, monitor I/O, weights, BNP, BMP, Mg - TTE 07/20/23: LVEF 55-60%, grade 3 diastolic dysfunction, moderate elevated RVSP and mildly elevated RAP - continue antihypertensives: amlodipine, doxazosin, hydralazine, metoprolol succinate, question of multifocal PNA - suspect this is more pulmonary edema from CHF rather than bacterial PNA - ceftriaxone 08/14-08/16 [discontinue today as PCT remains low] + doxycycline 08/14-08/19 more for COPD than for PNA. RPP negative COPD exacerbation - continue steroids [change to PO], standing/prn nebs, Breo, doxcy 08/14-08/19 acute/chronic hypoxic resp failure - wean O2 to baseline as tolerated as above conditions resolve [currently on 3L, on 2L at home] hypoMg - replete, recheck level in AM RUQ pain with minimal fluid between gallbladder and R hepatic lobe - likely referred pain from pneumonia; pain has resolved; consider HIDA if symptoms worsen/recur DM2 - hold MTF, continue marie-dose lispro SAGAR - Fe repletion HTN - antihypertensives as above HLD - statin mood disorder - escitalopram VTE ppx - LMWH dispo - anticipate home with VNA in next 1-2d In my clinical judgment, the patient requires continued inpatient hospitalization for the following reasons: hypoxia, IV diuresis Total time managing care of this patient today: 40 minutes. Quality Stroke Does the patient have a stroke diagnosis?: No VTE Prior VTE?: No VTE Risk Level:: Medical - moderate - high VTE Device Contraindication: Treatment Not Indicated VTE Drug Contraindication: N/A - Med Ordered
[2023-08-17] MEDS: Fluticasone/Vilanterol 100/25 BLST.W.DEV 1 PUFF INHALE (11:16)
[2023-08-17 11:19] VITALS: PULSE 66; RESP 16; O2SAT 93
[2023-08-17] MEDS: Albuterol/Iprat 2.5/0.5MG 3 ML AMPUL.NEB INHALE (11:19)
[2023-08-17 11:28] LABS: Glucose, Whole Blood 313 mg/dL (60-115)
[2023-08-17 15:31] VITALS: BP 108/54; PULSE 60; RESP 18; TEMP 36; O2SAT 94
[2023-08-17 15:59] LABS: Glucose, Whole Blood 271 mg/dL (60-115)
[2023-08-17] MEDS: Enoxaparin Sodium 40 MG/0.4 ML SYRINGE SUBCUT (16:19)
--- NOTE | 2023-08-17 19:00 | PC.NURSE ---
This RN assumed care at 1900, Pt alert & oriented, hx of dementia at baseline, denies pain lisha, Respirations even and non-labored, BSx4 no pain with palpation, skin dry and intact. No apparent distress, call bonilla within reach.
[2023-08-17 19:10] VITALS: BP 132/61; PULSE 60; RESP 18; TEMP 36; O2SAT 96
[2023-08-17 20:45] LABS: Glucose, Whole Blood 208 mg/dL (60-115)
[2023-08-17 21:04] VITALS: BP 132/61
[2023-08-18] VITALS (11 sets, daily range): BP systolic 110–136; BP diastolic 55–62; PULSE 60–66; RESP 18; TEMP 36–36.3; O2SAT 90–97
[2023-08-18 06:44] LABS: Anion Gap 12 (12-20); Blood Urea Nitrogen 35 mg/dL (9-16); Calcium 9.2 mg/dL (8.4-10.2); Carbon Dioxide 32 mmol/L (22-29); Chloride 94 mmol/L (96-108); Creatinine Clr Calc Pharmacy 30.9; Estimated Glomerular Filt Rate 35; Glucose Random 182 mg/dL (60-115); Magnesium 1.9 mg/dL (1.6-2.6); Potassium 3.7 mmol/L (3.3-5.1); Sodium 134 mmol/L (135-145)
[2023-08-18 06:49] LABS: B Type Natriuretic Peptide 232 pg/mL (<100)
[2023-08-18] MEDS: Albuterol/Iprat 2.5/0.5MG 3 ML AMPUL.NEB INHALE ×3 (07:41→15:10)
[2023-08-18] MEDS: Fluticasone/Vilanterol 100/25 BLST.W.DEV 1 PUFF INHALE (07:42)
[2023-08-18 07:45] LABS: Glucose, Whole Blood 184 mg/dL (60-115)
[2023-08-18] MEDS: Insulin Lispro 100 UNIT/ML 3 ML VIAL SUBCUT ×4 (08:10→20:39)
[2023-08-18] MEDS: 0.9 % Sodium Chloride Flush 3 ML SYRINGE IVFLUSH ×3 (08:11→20:41)
[2023-08-18] MEDS: Dicyclomine HCl 10 MG CAPSULE 20 MG PO ×3 (08:17→20:40)
[2023-08-18] MEDS: hydrALAZINE HCl 50 MG TABLET 100 MG PO ×2 (08:17→20:40)
[2023-08-18] MEDS: Atorvastatin Calcium 80 MG TABLET PO (08:17)
[2023-08-18] MEDS: oxyBUTYnin chloride ER 5 MG TAB.ER.24 10 MG PO (08:17)
[2023-08-18] MEDS: predniSONE 20 MG TABLET 40 MG PO (08:17)
[2023-08-18] MEDS: Doxycycline Monohydrate 100 MG CAPSULE PO ×2 (08:18→20:41)
[2023-08-18] MEDS: Loratadine 10 MG TABLET PO (08:18)
[2023-08-18] MEDS: amLODIPine Besylate 10 MG TABLET PO (08:18)
[2023-08-18] MEDS: Folic Acid 1 MG TABLET PO (08:19)
[2023-08-18] MEDS: Doxazosin Mesylate 2 MG TABLET PO (08:19)
[2023-08-18] MEDS: Ferrous Sulfate 324 MG TABLET.DR PO (08:19)
[2023-08-18] MEDS: Metoprolol Succinate ER 100 MG TAB.ER.24H PO (08:19)
[2023-08-18] MEDS: Escitalopram Oxalate 10 MG TABLET PO (08:19)
[2023-08-18] MEDS: Omeprazole 20 MG CAPSULE.DR PO (08:19)
[2023-08-18] MEDS: Cyanocobalamin (Vitamin B-12) 1,000 MCG TABLET 1000 MCG PO (09:23)
--- NOTE | 2023-08-18 10:53 | P.PNIM_ITS ---
Subjective Subjective Date of Service: 08/18/23 Interval History: This history was taken in Latvian from the patient. Breathing well, denies dyspnea or wheezing. Denies abd pain, nausea, or vomiting. SCr up. Review of Systems Review of Systems: Yes all other systems are reviewed and are negative Physical Exam 2 Vital Signs: Vital Signs: Last Vital Signs Temp 96.8 F 08/18/23 07:31 Pulse 66 08/18/23 08:19 Resp 18 08/18/23 07:42 BP 136/62 08/18/23 08:19 Pulse Ox 94 08/18/23 07:31 O2 Del Method Nasal Cannula 08/18/23 07:31 O2 Flow Rate 3 08/18/23 07:31 Oxygen Flow Rate 2 08/15/23 07:45 BMI result Body Mass Index 26.0 Gen: in no acute distress HEENT: sclera anicteric, moist mucus membranes Neck: supple, JVD absent Lungs: diminished Heart: regular rate and rhythm, no murmurs Abd: soft, non-tender, non-distended Ext: no edema Skin: warm/well-perfused Neuro: alert and oriented x3, no focal findings Psych: appropriate affect Objective Data Active Medications Acetaminophen (Acetaminophen 325 Mg Tablet) 650 mg PO Q6H PRN PRN Reason: Pain, Mild (Pain Scale 1-3) Albuterol/Ipratropium (Albuterol/Iprat 2.5/0.5mg 3 Ml Ampul.Neb) 3 ml INHALE RQ4H WHILE AWAKE [facility] Last Admin: 08/18/23 07:41 Dose: 3 ml Documented By: RENATO Albuterol/Ipratropium (Albuterol/Iprat 2.5/0.5mg 3 Ml Ampul.Neb) 3 ml INHALE RQ4H WHILE AWAKE PRN PRN Reason: Shortness of Breath/Wheezing Amlodipine Besylate (Amlodipine Besylate 10 Mg Tablet) 10 mg PO DAILY [facility]; Protocol Last Admin: 08/18/23 08:18 Dose: 10 mg Documented By: EDITH Atorvastatin Calcium (Atorvastatin Calcium 80 Mg Tablet) 80 mg PO DAILY [facility] Last Admin: 08/18/23 08:17 Dose: 80 mg Documented By: EDITH Cyanocobalamin (Cyanocobalamin (Vitamin B-12) 1,000 Mcg Tablet) 1,000 mcg PO MoWeFr [facility] Last Admin: 08/18/23 09:23 Dose: 1,000 mcg Documented By: EDITH Dicyclomine HCl (Dicyclomine Hcl 10 Mg Capsule) 20 mg PO TID [facility] Last Admin: 08/18/23 08:17 Dose: 20 mg Documented By: EDITH Doxazosin Mesylate (Doxazosin Mesylate 2 Mg Tablet) 2 mg PO DAILY [facility]; Protocol Last Admin: 08/18/23 08:19 Dose: 2 mg Documented By: EDITH Doxycycline Monohydrate (Doxycycline Monohydrate 100 Mg Capsule) 100 mg PO BID [facility] Last Admin: 08/18/23 08:18 Dose: 100 mg Documented By: EDITH Enoxaparin Sodium (Enoxaparin Sodium 40 Mg/0.4 Ml Syringe) 40 mg SUBCUT Q24H [facility] Last Admin: 08/17/23 16:19 Dose: 40 mg Documented By: TALIA Ergocalciferol (Ergocalciferol (Vitamin D2) 1,250 Mcg Capsule) 1,250 mcg PO SHAW [facility] Last Admin: 08/15/23 18:36 Dose: Not Given Documented By: JOE Non-Admin Reason: Med Not Available Escitalopram Oxalate (Escitalopram Oxalate 10 Mg Tablet) 10 mg PO DAILY [facility] Last Admin: 08/18/23 08:19 Dose: 10 mg Documented By: EDITH Ferrous Sulfate (Ferrous Sulfate 324 Mg Tablet.Dr) 324 mg PO DAILY [facility] Last Admin: 08/18/23 08:19 Dose: 324 mg Documented By: EDITH Fluticasone/Vilanterol (Fluticasone/Vilanterol 100/25 Blst.W.Dev) 1 puff INHALE RDAILY [facility] Last Admin: 08/18/23 07:42 Dose: 1 puff Documented By: RENATO Folic Acid (Folic Acid 1 Mg Tablet) 1 mg PO DAILY [facility] Last Admin: 08/18/23 08:19 Dose: 1 mg Documented By: EDITH Furosemide (Furosemide 100 Mg/10 Ml Vial) 80 mg IVPUSH DAILY [facility]; Protocol Last Admin: 08/17/23 07:43 Dose: 80 mg Documented By: ADELAIDE Glucose (Glucose Gel 15 Gm Gel..Gram.) 15 gm PO Q15M PRN; Protocol PRN Reason: per Hypoglycemia Standing Ord. Guaifenesin (Guaifenesin 200 Mg/10 Ml 10 Ml Liquid) 10 ml PO Q4H PRN PRN Reason: Cough Hydralazine HCl (Hydralazine Hcl 50 Mg Tablet) 100 mg PO BID [facility]; Protocol Last Admin: 08/18/23 08:17 Dose: 100 mg Documented By: EDITH Hydrocortisone (Hydrocortisone 1 % Cream 28.35 Gm Tube) 1 appl TOPICAL BID PRN; Protocol PRN Reason: skin irritation Dextrose (D10) 250 mls @ 750 mls/hr IV Q15M PRN; Protocol PRN Reason: per Hypoglycemia Standing Ord. Insulin Human Lispro (Insulin Lispro 100 Unit/Ml 3 Ml Vial) 0 unit SUBCUT QIDACHS [facility]; Protocol Last Admin: 08/18/23 08:10 Dose: 4 unit Documented By: EDITH Lidocaine (Lidocaine 4 % Patch Adh..Patch) 1 patch TRANSDERMA DAILY [facility] Last Admin: 08/18/23 08:21 Dose: Not Given Documented By: EDITH Non-Admin Reason: Patient Refused Loratadine (Loratadine 10 Mg Tablet) 10 mg PO DAILY [facility] Last Admin: 08/18/23 08:18 Dose: 10 mg Documented By: EDITH Losartan Potassium (Losartan Potassium 25 Mg Tablet) 25 mg PO DAILY [facility]; Protocol Last Admin: 08/17/23 07:47 Dose: 25 mg Documented By: ADELAIDE Magnesium Hydroxide (Milk Of Magnesia 30 Ml Oral.Susp) 30 ml PO DAILY PRN PRN Reason: Constipation Meclizine HCl (Meclizine Hcl 25 Mg Tablet) 25 mg PO TID PRN PRN Reason: dizziness Metoprolol Succinate (Metoprolol Succinate Er 100 Mg Tab.Er.24h) 100 mg PO DAILY [facility]; Protocol Last Admin: 08/18/23 08:19 Dose: 100 mg Documented By: EDITH Niacin (Niacin Er 250 Mg Tablet.Er) 500 mg PO BEDTIME [facility] Last Admin: 08/17/23 21:04 Dose: 500 mg Documented By: REBEKAH Omeprazole (Omeprazole 20 Mg Capsule.Dr) 20 mg PO DAILY [facility] Last Admin: 08/18/23 08:19 Dose: 20 mg Documented By: EDITH Ondansetron HCl (Ondansetron Hcl 4 Mg/2 Ml Vial) 4 mg IVPUSH Q8H PRN PRN Reason: Nausea and Vomiting Oxybutynin Chloride (Oxybutynin Chloride Er 5 Mg Tab.Er.24) 10 mg PO DAILY [facility] Last Admin: 08/18/23 08:17 Dose: 10 mg Documented By: EDITH Prednisone (Prednisone 20 Mg Tablet) 40 mg PO DAILY [facility] Last Admin: 08/18/23 08:17 Dose: 40 mg Documented By: EDITH Promethazine HCl (Promethazine Hcl 25 Mg Tablet) 25 mg PO TID PRN PRN Reason: nausea and vomiting Sodium Chloride (0.9 % Sodium Chloride Flush 3 Ml Syringe) 3 ml IVFLUSH QSHIFT [facility] Last Admin: 08/18/23 08:11 Dose: 3 ml Documented By: EDITH Labs 08/16/23 04:46 08/18/23 05:27 Labs: Laboratory Results - last 24 hr 08/17/23 08/17/23 08/17/23 11:18 15:55 20:38 Anion Gap Estim Creat Clear Calc Estimated GFR POC Glucose 313 H 271 H 208 H Random Glucose Calcium Magnesium B-Natriuretic Peptide 08/18/23 08/18/23 05:27 07:30 Anion Gap 12 Estim Creat Clear Calc 30.9 Estimated GFR 35 POC Glucose 184 H Random Glucose 182 H Calcium 9.2 Magnesium 1.9 B-Natriuretic Peptide 232 H Assessment and Plan (1) CHF exacerbation: Status: Acute Plan d4 78yo F with HFpEF/grade 3 diastolic dysfunction, SAGAR, asthma, HLD, chronic hypoxic resp failure on 2L O2, DM2, HTN, osteoporosis presenting with dyspnea, cough and upper abd pain found to be hypoxic and admitted for CHF exacerbation + COPD exacerbation, possible PNA TUTU - likely overdiuresis; hold furosemide + losartan; recheck BMP in AM acute/chronic HFpEF - hold diuresis as above - TTE 07/20/23: LVEF 55-60%, grade 3 diastolic dysfunction, moderate elevated RVSP and mildly elevated RAP - continue antihypertensives: amlodipine, doxazosin, hydralazine, metoprolol succinate - hold losartan as above question of multifocal PNA - suspect this was more pulmonary edema from CHF rather than bacterial PNA - ceftriaxone 08/14-08/16 [discontinued as PCT remained low] + doxycycline 08/14-08/19 more for COPD than for PNA. RPP negative COPD exacerbation - continue steroids [changed to PO], standing/prn nebs, Breo, doxy 08/14-08/19 acute/chronic hypoxic resp failure - wean O2 to baseline as tolerated as above conditions resolve [currently on 3L, on 2L at home] hypoMg - repleted RUQ pain with minimal fluid between gallbladder and R hepatic lobe - likely referred pain from pneumonia; pain has resolved; fluid likely from CHF; consider HIDA if symptoms worsen/recur DM2 with hyperglycemia - hold MTF, increase marie-dose lispro SAGAR - on Fe repletion HTN - antihypertensives as above HLD - statin mood disorder - escitalopram VTE ppx - LMWH dispo - anticipate home with VNA in next 1-2d In my clinical judgment, the patient requires continued inpatient hospitalization for the following reasons: hypoxia, TUTU Total time managing care of this patient today: 40 minutes. Quality Stroke Does the patient have a stroke diagnosis?: No VTE Prior VTE?: No VTE Risk Level:: Medical - moderate - high VTE Device Contraindication: Treatment Not Indicated VTE Drug Contraindication: N/A - Med Ordered
[2023-08-18 11:14] LABS: Glucose, Whole Blood 323 mg/dL (60-115)
--- NOTE | 2023-08-18 15:04 | MHC.CM.PN ---
Per MD rounds no discharge today. Patient continues with Hypoxia as well as TUTU. DP home with resumption of [facility]. Discharge is anticipated 1-2 days. She will arrange for transportation home.
[2023-08-18] MEDS: Enoxaparin Sodium 40 MG/0.4 ML SYRINGE SUBCUT (16:08)
[2023-08-18 16:20] LABS: Glucose, Whole Blood 240 mg/dL (60-115)
[2023-08-18 20:40] LABS: Glucose, Whole Blood 259 mg/dL (60-115)
[2023-08-19] VITALS (12 sets, daily range): BP systolic 108–150; BP diastolic 58–69; PULSE 54–68; RESP 18–19; TEMP 36.1–36.2; O2SAT 93–98
[2023-08-19 05:39] LABS: Legionella Ag Urine Not Detected (Not Detected)
[2023-08-19 07:25] LABS: Glucose, Whole Blood 185 mg/dL (60-115)
[2023-08-19] MEDS: Albuterol/Iprat 2.5/0.5MG 3 ML AMPUL.NEB INHALE ×4 (07:26→19:24)
[2023-08-19] MEDS: Fluticasone/Vilanterol 100/25 BLST.W.DEV 1 PUFF INHALE (07:29)
[2023-08-19] MEDS: Insulin Lispro 100 UNIT/ML 3 ML VIAL SUBCUT ×4 (07:44→20:55)
[2023-08-19] MEDS: 0.9 % Sodium Chloride Flush 3 ML SYRINGE IVFLUSH ×3 (07:46→20:58)
[2023-08-19] MEDS: oxyBUTYnin chloride ER 5 MG TAB.ER.24 10 MG PO (09:20)
[2023-08-19] MEDS: Metoprolol Succinate ER 100 MG TAB.ER.24H PO (09:22)
[2023-08-19] MEDS: hydrALAZINE HCl 50 MG TABLET 100 MG PO ×2 (09:22→20:55)
[2023-08-19] MEDS: Omeprazole 20 MG CAPSULE.DR PO (09:22)
[2023-08-19] MEDS: Escitalopram Oxalate 10 MG TABLET PO (09:23)
[2023-08-19] MEDS: Doxazosin Mesylate 2 MG TABLET PO (09:23)
[2023-08-19] MEDS: Dicyclomine HCl 10 MG CAPSULE 20 MG PO ×3 (09:23→20:55)
[2023-08-19] MEDS: Ferrous Sulfate 324 MG TABLET.DR PO (09:23)
[2023-08-19] MEDS: Atorvastatin Calcium 80 MG TABLET PO (09:23)
[2023-08-19] MEDS: Doxycycline Monohydrate 100 MG CAPSULE PO ×2 (09:24→20:55)
[2023-08-19] MEDS: predniSONE 20 MG TABLET 40 MG PO (09:24)
[2023-08-19] MEDS: amLODIPine Besylate 10 MG TABLET PO (09:24)
[2023-08-19] MEDS: Folic Acid 1 MG TABLET PO (09:24)
[2023-08-19] MEDS: Loratadine 10 MG TABLET PO (09:24)
[2023-08-19 12:05] LABS: Glucose, Whole Blood 240 mg/dL (60-115)
[2023-08-19 12:09] LABS: Anion Gap 14 (12-20); Blood Urea Nitrogen 38 mg/dL (9-16); Calcium 9.4 mg/dL (8.4-10.2); Carbon Dioxide 27 mmol/L (22-29); Chloride 88 mmol/L (96-108); Creatinine Clr Calc Pharmacy 31.1; Estimated Glomerular Filt Rate 36; Glucose Random 275 mg/dL (60-115); Potassium 3.3 mmol/L (3.3-5.1); Sodium 126 mmol/L (135-145)
--- NOTE | 2023-08-19 12:32 | HO.PM.IMPN ---
Subjective Subjective Date of Service: 08/19/23 Interval History: This history was taken in Croatian from the patient. Coughing No dyspnea No abd pain Review of Systems Review of Systems: Yes all other systems are reviewed and are negative Physical Exam Vital Signs: Vital Signs: Last Vital Signs Temp 96.9 F 08/19/23 07:32 Pulse 61 08/19/23 11:21 Resp 18 08/19/23 11:21 BP 120/58 L 08/19/23 09:24 Pulse Ox 95 08/19/23 10:48 O2 Del Method Nasal Cannula 08/19/23 10:48 O2 Flow Rate 2 08/19/23 10:48 Oxygen Flow Rate 2 08/15/23 07:45 BMI result Body Mass Index 26.0 Gen: in no acute distress HEENT: sclera anicteric, moist mucus membranes Neck: supple, JVD absent Lungs: diminished Heart: regular rate and rhythm, no murmurs Abd: soft, non-tender, non-distended Ext: no edema Skin: warm/well-perfused Neuro: alert and oriented x3, no focal findings Psych: appropriate affect Objective Data Active Medications Acetaminophen (Acetaminophen 325 Mg Tablet) 650 mg PO Q6H PRN PRN Reason: Pain, Mild (Pain Scale 1-3) Albuterol/Ipratropium (Albuterol/Iprat 2.5/0.5mg 3 Ml Ampul.Neb) 3 ml INHALE RQ4H WHILE AWAKE [facility] Last Admin: 08/19/23 11:19 Dose: 3 ml Documented By: RENATO Albuterol/Ipratropium (Albuterol/Iprat 2.5/0.5mg 3 Ml Ampul.Neb) 3 ml INHALE RQ4H WHILE AWAKE PRN PRN Reason: Shortness of Breath/Wheezing Amlodipine Besylate (Amlodipine Besylate 10 Mg Tablet) 10 mg PO DAILY [facility]; Protocol Last Admin: 08/19/23 09:24 Dose: 10 mg Documented By: SANJU Atorvastatin Calcium (Atorvastatin Calcium 80 Mg Tablet) 80 mg PO DAILY [facility] Last Admin: 08/19/23 09:23 Dose: 80 mg Documented By: SANJU Cyanocobalamin (Cyanocobalamin (Vitamin B-12) 1,000 Mcg Tablet) 1,000 mcg PO MoWeFr [facility] Last Admin: 08/18/23 09:23 Dose: 1,000 mcg Documented By: EDITH Dicyclomine HCl (Dicyclomine Hcl 10 Mg Capsule) 20 mg PO TID [facility] Last Admin: 08/19/23 09:23 Dose: 20 mg Documented By: SANJU Doxazosin Mesylate (Doxazosin Mesylate 2 Mg Tablet) 2 mg PO DAILY [facility]; Protocol Last Admin: 08/19/23 09:23 Dose: 2 mg Documented By: SANJU Doxycycline Monohydrate (Doxycycline Monohydrate 100 Mg Capsule) 100 mg PO BID [facility] Last Admin: 08/19/23 09:24 Dose: 100 mg Documented By: SANJU Enoxaparin Sodium (Enoxaparin Sodium 40 Mg/0.4 Ml Syringe) 40 mg SUBCUT Q24H [facility] Last Admin: 08/18/23 16:08 Dose: 40 mg Documented By: EDITH Ergocalciferol (Ergocalciferol (Vitamin D2) 1,250 Mcg Capsule) 1,250 mcg PO SHAW [facility] Last Admin: 08/15/23 18:36 Dose: Not Given Documented By: JOE Non-Admin Reason: Med Not Available Escitalopram Oxalate (Escitalopram Oxalate 10 Mg Tablet) 10 mg PO DAILY [facility] Last Admin: 08/19/23 09:23 Dose: 10 mg Documented By: SANJU Ferrous Sulfate (Ferrous Sulfate 324 Mg Tablet.Dr) 324 mg PO DAILY [facility] Last Admin: 08/19/23 09:23 Dose: 324 mg Documented By: SANJU Fluticasone/Vilanterol (Fluticasone/Vilanterol 100/25 Blst.W.Dev) 1 puff INHALE RDAILY [facility] Last Admin: 08/19/23 07:29 Dose: 1 puff Documented By: RENATO Folic Acid (Folic Acid 1 Mg Tablet) 1 mg PO DAILY [facility] Last Admin: 08/19/23 09:24 Dose: 1 mg Documented By: SANJU Furosemide (Furosemide 100 Mg/10 Ml Vial) 80 mg IVPUSH DAILY [facility]; Protocol Last Admin: 08/17/23 07:43 Dose: 80 mg Documented By: ADELAIDE Glucose (Glucose Gel 15 Gm Gel..Gram.) 15 gm PO Q15M PRN; Protocol PRN Reason: per Hypoglycemia Standing Ord. Guaifenesin (Guaifenesin 200 Mg/10 Ml 10 Ml Liquid) 10 ml PO Q4H PRN PRN Reason: Cough Hydralazine HCl (Hydralazine Hcl 50 Mg Tablet) 100 mg PO BID [facility]; Protocol Last Admin: 08/19/23 09:22 Dose: 100 mg Documented By: SANJU Hydrocortisone (Hydrocortisone 1 % Cream 28.35 Gm Tube) 1 appl TOPICAL BID PRN; Protocol PRN Reason: skin irritation Dextrose (D10) 250 mls @ 750 mls/hr IV Q15M PRN; Protocol PRN Reason: per Hypoglycemia Standing Ord. Insulin Human Lispro (Insulin Lispro 100 Unit/Ml 3 Ml Vial) 0 unit SUBCUT QIDACHS [facility]; Protocol Last Admin: 08/19/23 12:13 Dose: 8 unit Documented By: SANJU Lidocaine (Lidocaine 4 % Patch Adh..Patch) 1 patch TRANSDERMA DAILY [facility] Last Admin: 08/19/23 09:36 Dose: Not Given Documented By: SANJU Non-Admin Reason: Patient Refused Loratadine (Loratadine 10 Mg Tablet) 10 mg PO DAILY [facility] Last Admin: 08/19/23 09:24 Dose: 10 mg Documented By: SANJU Losartan Potassium (Losartan Potassium 25 Mg Tablet) 25 mg PO DAILY [facility]; Protocol Last Admin: 08/17/23 07:47 Dose: 25 mg Documented By: ADELAIDE Magnesium Hydroxide (Milk Of Magnesia 30 Ml Oral.Susp) 30 ml PO DAILY PRN PRN Reason: Constipation Meclizine HCl (Meclizine Hcl 25 Mg Tablet) 25 mg PO TID PRN PRN Reason: dizziness Metoprolol Succinate (Metoprolol Succinate Er 100 Mg Tab.Er.24h) 100 mg PO DAILY [facility]; Protocol Last Admin: 08/19/23 09:22 Dose: 100 mg Documented By: SANJU Niacin (Niacin Er 250 Mg Tablet.Er) 500 mg PO BEDTIME [facility] Last Admin: 08/18/23 20:41 Dose: 500 mg Documented By: TAJ Omeprazole (Omeprazole 20 Mg Capsule.Dr) 20 mg PO DAILY [facility] Last Admin: 08/19/23 09:22 Dose: 20 mg Documented By: SANJU Ondansetron HCl (Ondansetron Hcl 4 Mg/2 Ml Vial) 4 mg IVPUSH Q8H PRN PRN Reason: Nausea and Vomiting Oxybutynin Chloride (Oxybutynin Chloride Er 5 Mg Tab.Er.24) 10 mg PO DAILY [facility] Last Admin: 08/19/23 09:20 Dose: 10 mg Documented By: SANJU Prednisone (Prednisone 20 Mg Tablet) 40 mg PO DAILY [facility] Last Admin: 08/19/23 09:24 Dose: 40 mg Documented By: SANJU Promethazine HCl (Promethazine Hcl 25 Mg Tablet) 25 mg PO TID PRN PRN Reason: nausea and vomiting Sodium Chloride (0.9 % Sodium Chloride Flush 3 Ml Syringe) 3 ml IVFLUSH QSHIFT [facility] Last Admin: 08/19/23 07:46 Dose: 3 ml Documented By: SANJU Labs 08/16/23 04:46 08/19/23 10:44 Labs: Laboratory Results - last 24 hr 08/16/23 08/18/23 08/18/23 07:54 15:48 20:28 Anion Gap Estim Creat Clear Calc Estimated GFR POC Glucose 240 H 259 H Random Glucose Calcium Ur L.pneumophila Ag Not Detected 08/19/23 08/19/23 08/19/23 07:17 10:44 11:59 Anion Gap 14 Estim Creat Clear Calc 31.1 Estimated GFR 36 POC Glucose 185 H 240 H Random Glucose 275 H Calcium 9.4 Ur L.pneumophila Ag Assessment and Plan (1) CHF exacerbation: Status: Acute Plan d5 78yo F with HFpEF/grade 3 diastolic dysfunction, SAGAR, asthma, HLD, chronic hypoxic resp failure on 2L O2, DM2, HTN, osteoporosis presenting with dyspnea, cough and upper abd pain found to be hypoxic and admitted for CHF exacerbation + COPD exacerbation, possible PNA TUTU - likely overdiuresis; hold furosemide + losartan; recheck BMP in AM hypoNa - suspect prerenal but will check urine sodium + fluid restrict; recheck BMP in AM acute/chronic HFpEF - holding diuresis as above - TTE 07/20/23: LVEF 55-60%, grade 3 diastolic dysfunction, moderate elevated RVSP and mildly elevated RAP - continue antihypertensives: amlodipine, doxazosin, hydralazine, metoprolol succinate - holding losartan as above question of multifocal PNA - suspect this was more pulmonary edema from CHF rather than bacterial PNA - ceftriaxone 08/14-08/16 [discontinued as PCT remained low] + doxycycline 08/14-08/19 more for COPD than for PNA. RPP negative COPD exacerbation - continue steroids [changed to PO], standing/prn nebs, Breo, doxy 08/14-08/19 acute/chronic hypoxic resp failure - back on baseline 2L O2 via [place] hypoMg - repleted RUQ pain with minimal fluid between gallbladder and R hepatic lobe - likely referred pain from pneumonia; pain has resolved; fluid likely from CHF; consider HIDA if symptoms worsen/recur DM2 with hyperglycemia - hold MTF, increase marie-dose lispro SAGAR - on Fe repletion HTN - antihypertensives as above HLD - statin mood disorder - escitalopram VTE ppx - LMWH dispo - anticipate home with VNA in next 1-2d In my clinical judgment, the patient requires continued inpatient hospitalization for the following reasons: TUTU, hypoNa Total time managing care of this patient today: 40 minutes. Quality Stroke Does the patient have a stroke diagnosis?: No VTE Prior VTE?: No VTE Risk Level:: Medical - moderate - high VTE Device Contraindication: Treatment Not Indicated VTE Drug Contraindication: N/A - Med Ordered
[2023-08-19 13:35] LABS: Sodium Urine Random < 20.0 mmol/L
[2023-08-19 16:50] LABS: Glucose, Whole Blood 343 mg/dL (60-115)
[2023-08-19] MEDS: Enoxaparin Sodium 40 MG/0.4 ML SYRINGE SUBCUT (17:01)
[2023-08-19 20:20] LABS: Glucose, Whole Blood 378 mg/dL (60-115)
[2023-08-19] MEDS: Insulin Glargine,Hum.rec.anlog 100 UNIT/ML 10 ML VIAL 15 UNIT SUBCUT (20:57)
[2023-08-19 22:11] LABS: Glucose, Whole Blood 370 mg/dL (60-115)
[2023-08-20] VITALS (7 sets, daily range): BP systolic 136–169; BP diastolic 64–72; PULSE 63–64; RESP 18–20; TEMP 36.2; O2SAT 93–100
[2023-08-20 00:19] LABS: Strep Pneumo Ag urine Not Detected (Not Detected)
--- NOTE | 2023-08-20 00:55 | MHC.PIE ---
late entry p; poc 378. note; admelog 20u to be given per ss i; dr fam notified. new order lantus 15u e; will cont to moniotr
[2023-08-20] MEDS: Omeprazole 20 MG CAPSULE.DR PO (06:20)
[2023-08-20 07:38] LABS: Glucose, Whole Blood 196 mg/dL (60-115)
[2023-08-20] MEDS: Doxazosin Mesylate 2 MG TABLET PO (08:09)
[2023-08-20] MEDS: Insulin Lispro 100 UNIT/ML 3 ML VIAL SUBCUT ×2 (08:09→12:02)
[2023-08-20] MEDS: Ferrous Sulfate 324 MG TABLET.DR PO (08:09)
[2023-08-20] MEDS: Metoprolol Succinate ER 100 MG TAB.ER.24H PO (08:09)
[2023-08-20] MEDS: Dicyclomine HCl 10 MG CAPSULE 20 MG PO (08:09)
[2023-08-20] MEDS: Doxycycline Monohydrate 100 MG CAPSULE PO (08:09)
[2023-08-20] MEDS: predniSONE 20 MG TABLET 40 MG PO (08:10)
[2023-08-20] MEDS: amLODIPine Besylate 10 MG TABLET PO (08:10)
[2023-08-20] MEDS: hydrALAZINE HCl 50 MG TABLET 100 MG PO (08:10)
[2023-08-20] MEDS: Atorvastatin Calcium 80 MG TABLET PO (08:10)
[2023-08-20] MEDS: oxyBUTYnin chloride ER 5 MG TAB.ER.24 10 MG PO (08:10)
[2023-08-20] MEDS: Escitalopram Oxalate 10 MG TABLET PO (08:10)
[2023-08-20] MEDS: Folic Acid 1 MG TABLET PO (08:10)
[2023-08-20] MEDS: Loratadine 10 MG TABLET PO (08:10)
[2023-08-20] MEDS: 0.9 % Sodium Chloride Flush 3 ML SYRINGE IVFLUSH (08:11)
[2023-08-20] MEDS: Albuterol/Iprat 2.5/0.5MG 3 ML AMPUL.NEB INHALE ×2 (08:27→11:43)
[2023-08-20] MEDS: Fluticasone/Vilanterol 100/25 BLST.W.DEV 1 PUFF INHALE (08:27)
[2023-08-20] MEDS: Cyanocobalamin (Vitamin B-12) 1,000 MCG TABLET 1000 MCG PO (08:28)
[2023-08-20 08:34] LABS: Anion Gap 14 (12-20); Blood Urea Nitrogen 38 mg/dL (9-16); Calcium 9.3 mg/dL (8.4-10.2); Carbon Dioxide 30 mmol/L (22-29); Chloride 91 mmol/L (96-108); Estimated Glomerular Filt Rate 42; Glucose Random 191 mg/dL (60-115); Potassium 3.7 mmol/L (3.3-5.1); Sodium 131 mmol/L (135-145)
[2023-08-20 08:38] LABS: B Type Natriuretic Peptide 263 pg/mL (<100)
--- NOTE | 2023-08-20 10:33 | P.DS_ITS ---
DS: Providers Provider Date of Service: 08/20/23 Date of admission: 08/15/23 17:04 Date of discharge: 08/20/23 Primary care physician: Yoselyn Millan MD DS: Diagnosis Discharge Diagnosis (1) Acute and chronic respiratory failure: Status: Acute (2) Acute on chronic heart failure with preserved ejection fraction (HFpEF): Status: Acute (3) COPD exacerbation: Status: Acute (4) Acute kidney failure: Status: Acute (5) Hyponatremia: Status: Acute DS: Summary Hospital Course Hospital Course: From the history and physical by the admitting hospitalist, JOHNNIE Tate, 08/15/23: 78-year-old female with history of heart failure preserved ejection fraction, grade 3 diastolic dysfunction, hyperlipidemia, iron deficiency anemia, asthma with chronic hypoxemic respiratory failure on 2 L supplemental O2 at baseline, [id number] type 2 diabetes, hypertension, osteoporosis presented to the ED earlier today for evaluation of upper abdominal pain, dyspnea, and occasionally productive cough that has been ongoing for 3 days. History is taken in Naur[place] by Dr. Mohan. The patient is a limited historian and much of the history is taken from her daughter who is at bedside. She does also endorse ST. Has had intermittent diarreah but this is not new. There have been no fevers, chills, congestion, nausea, vomiting, melena, hematochezia, urinary symptoms, lightheadedness, palpitations, chest pain. Per her daughter's report, the patient has been pocketing her pills in her cheeks and spitting them out for unknown duration. She does deny any weight gain. No sick contacts. She was recently discharged from our facility on 07/22 due to CHF exacerbation and was discharged on 2L supplemental O2. Since arrival, patient has been afebrile without any tachycardia. She did desaturate to 85% on 2 L and is now maintaining 90% on 6 L supplemental O2 via nasal cannula. No hypotension. There is no leukocytosis. She has a stable microcytic anemia consistent with baseline. Renal function is baseline, electrolyte levels normal except for CO2 34. CRP 1.81, procalcitonin 0.04. Urinalysis unremarkable. Chest CT shows bilateral lower lobe and upper lobe infiltrate/atelectasis. CT abdomen/pelvis negative for any acute intra- abdominal pathology but shows minimal fluid in between the gallbladder in the right hepatic lobe as well as perihepatic ascites which is nonspecific. In the ED, has received doxycycline, Rocephin, 40 mg IV Lasix, 2 mg doxazosin, 10 mg am lodipine, and DuoNeb. 78yo F with HFpEF/grade 3 diastolic dysfunction, SAGAR, asthma, HLD, chronic hypoxic resp failure on 2L O2, DM2, HTN, and osteoporosis presenting with dyspnea, cough and upper abd pain and found to be hypoxic. She was admitted to the medical-surgical unit for CHF exacerbation + COPD exacerbation with concern of pneumonia. Hospital course by problem: acute/chronic HFpEF - Diuresed with IV furosemide. Prior TTE 07/20/23: LVEF 55-60%, grade 3 diastolic dysfunction, moderate elevated RVSP and mildly elevated RAP. It turns out she was not compliant with PO furosemide for 3 days prior to admission. The importance of full compliance was reviewed with the patient and her daughter. Antihypertensives were continued. question of multifocal PNA - Suspect the lung infiltrates were more from pulmonary edema due to CHF rather than bacterial PNA. She was initially treated with ceftriaxone for 48 hours but procalcitonin remained low so this was discontinued. She did get 5 days of doxycycline for COPD exacerbation. Respiratory pathogen PCR panel negative. COPD exacerbation - Treated with IV, then PO steroids as well as standing/prn nebs. Also got doxycycline as noted above. Discharged home on 2 more days of prednisone plus doxycyclien. hypoNa TUTU - Developed hypovolemic hyponatremia and mild TUTU suspected due to over- diuresis. Diuresis was held for 2 days and both sodium and creatinine improved. She should recheck BMP, magnesium, and BNP level in 1 week. acute/chronic hypoxic resp failure - Oxygen weaned to home dose of 2L. RUQ pain with minimal fluid between gallbladder and R hepatic lobe - Fluid likely from CHF. She was tolerating a solid diet with no nausea or vomiting and the abdominal pain completely resolved. She was discharged home with resumption of VNA services. 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 Time Attestation Discharge Coordination Time (in mins): 45 Quality: Safe Use of Opioids Does Pt have an Active Cancer Diagnosis on the Problem List?: No Quality: Stroke Does the patient have a stroke diagnosis?: No Physical Exam Vital Signs: Vital Signs: Last Vital Signs Temp 97.2 F 08/20/23 07:18 Pulse 64 08/20/23 08:27 Resp 20 08/20/23 08:27 BP 169/72 H 08/20/23 08:10 Pulse Ox 100 08/20/23 07:18 O2 Del Method Nasal Cannula 08/20/23 07:18 O2 Flow Rate 2 08/20/23 07:18 Oxygen Flow Rate 2 08/15/23 07:45 BMI result Body Mass Index 26.0 Gen: in no acute distress HEENT: sclera anicteric, moist mucus membranes Neck: supple, JVD absent Lungs: diminished Heart: regular rate and rhythm, no murmurs Abd: soft, non-tender, non-distended Ext: no edema Skin: warm/well-perfused Neuro: alert and oriented x3, no focal findings Psych: appropriate affect DS: Data Data Completed and Pending Completed studies during hospitalization [Text1]: Laboratory Results WBC 6.4 X10*3/uL (4.8-10.8) 08/16/23 04:46 RBC 4.23 X10*6/uL (4.20-5.50) 08/16/23 04:46 Hgb 9.9 g/dl (12.0-16.0) L 08/16/23 04:46 Hct 31.8 % (37.0-47.0) L 08/16/23 04:46 MCV 75.2 fL (80.0-98.0) L 08/16/23 04:46 MCH 23.4 pg (27.0-33.0) L 08/16/23 04:46 MCHC 31.1 g/dl (31.0-35.0) 08/16/23 04:46 RDW 16.8 % (11.0-16.0) H 08/16/23 04:46 Plt Count 258 X10*3/uL (160-400) 08/16/23 04:46 MPV 9.5 fL (9.4-12.3) 08/16/23 04:46 Immature Gran % (Auto) 0.3 % (0.0-0.4) 08/16/23 04:46 Neut % (Auto) 83.0 % (45-73) H 08/16/23 04:46 Lymph % (Auto) 15.5 % (20-40) L 08/16/23 04:46 Eddy % (Auto) 0.9 % (2-11) L 08/16/23 04:46 Eos % (Auto) 0.0 % (0-4) 08/16/23 04:46 Baso % (Auto) 0.3 % (0-2) 08/16/23 04:46 Lymph # (Auto) 1.0 X10*3/uL (1.2-4.9) L 08/16/23 04:46 Eddy # (Auto) 0.1 X10*3/uL (0.1-1.2) 08/16/23 04:46 Eos # (Auto) 0.0 X10*3/uL (0.0-0.4) 08/16/23 04:46 Baso # (Auto) 0.0 X10*3/uL (0.0-0.2) 08/16/23 04:46 Abs Immat Gran (auto) 0.02 X10*3/uL (0.00-0.03) 08/16/23 04:46 Absolute Neuts (auto) 5.3 x10*3/uL (2.0-8.3) 08/16/23 04:46 Absolute Nucleated RBC 0.000 X10*3/uL (0.0-0.012) 08/16/23 04:46 Nucleated RBC % (auto) 0.0 /100WBC (0.0-0.2) 08/16/23 04:46 Hold Purple Top SEE NOTE 08/17/23 07:14 VBG pH 7.53 (7.32-7.43) H 08/15/23 17:55 VBG pCO2 42 mmHg 08/15/23 17:55 VBG pO2 70 mmHg 08/15/23 17:55 VBG HCO3 36 mmol/L (22-26) H 08/15/23 17:55 VBG O2 Saturation 96.0 % 08/15/23 17:55 VBG Base Excess 12.4 mmol/L 08/15/23 17:55 Sodium 131 mmol/L (135-145) L 08/20/23 07:54 Potassium 3.7 mmol/L (3.3-5.1) 08/20/23 07:54 Chloride 91 mmol/L (96-108) L 08/20/23 07:54 Carbon Dioxide 30 mmol/L (22-29) H 08/20/23 07:54 Anion Gap 14 (12-20) 08/20/23 07:54 BUN 38 mg/dL (9-16) H 08/20/23 07:54 Creatinine 1.23 mg/dL (0.5-1.4) 08/20/23 07:54 Estim Creat Clear Calc 36.0 08/20/23 07:54 Estimated GFR 42 08/20/23 07:54 POC Glucose 196 mg/dL (60-115) H 08/20/23 07:21 Random Glucose 191 mg/dL (60-115) H 08/20/23 07:54 Calcium 9.3 mg/dL (8.4-10.2) 08/20/23 07:54 Magnesium 1.9 mg/dL (1.6-2.6) 08/18/23 05:27 Total Bilirubin 0.5 mg/dL (0.0-1.0) 08/15/23 08:13 AST 30 U/L (5-31) 08/15/23 08:13 ALT 30 U/L (0-31) 08/15/23 08:13 Alkaline Phosphatase 88 U/L (39-117) 08/15/23 08:13 C-Reactive Protein 1.81 mg/dL (< or = 0.50) H 08/15/23 08:13 B-Natriuretic Peptide 263 pg/mL (<100) H 08/20/23 07:54 Total Protein 7.1 g/dL (6.5-8.0) 08/15/23 08:13 Albumin 3.4 g/dL (3.5-5.0) L 08/15/23 08:13 Procalcitonin 0.07 ng/mL 08/17/23 07:14 Urine Color Yellow 08/15/23 15:29 Urine Appearance Clear 08/15/23 15:29 Urine pH 8.0 (5.0-9.0) 08/15/23 15:29 Ur Specific [place] >= 1.030 (1.005-1.025) H 08/15/23 15:29 Urine Protein 30 (1+) mg/dL (Neg-Trace) H 08/15/23 15:29 Urine Glucose (UA) Negative mg/dL (Negative) 08/15/23 15:29 Urine Ketones Negative mg/dL (Negative) 08/15/23 15:29 Urine Blood Negative (Negative) 08/15/23 15: Urine Nitrite Negative (Negative) 08/15/23 15:29 Ur Leukocyte Esterase Negative (Negative) 08/15/23 15:29 Urine RBC 3-5 /HPF (0-2) H 08/15/23 15:29 Urine WBC 0-5 /HPF (0-5) 08/15/23 15:29 Ur Squamous Epith Cells 0-2 /HPF (0-2) 08/15/23 15:29 Urine Bacteria None Seen (None Seen) 08/15/23 15: Hyaline Casts 0-2 /LPF (0-2) 08/15/23 15:29 Ur Random Sodium < 20.0 mmol/L 08/19/23 13:10 Respiratory Panel [place] See Note 08/15/23 17:53 Adenovirus (Rapid PCR) Not Detected (Not Detect.) 08/15/23 17:53 B.pert (TEM-PCR) Not Detected (Not Detect.) 08/15/23 17:53 B.parapertussis DNA PCR Not Detected (Not Detect.) 08/15/23 17:53 C. pneumoniae DNA (PCR) Not Detected (Not Detect.) 08/15/23 17:53 Coronavirus OC43 (PCR) Not Detected (Not Detect.) 08/15/23 17:53 Coronavirus HKU1 (PCR) Not Detected (Not Detect.) 08/15/23 17:53 Coronavirus 229E (PCR) Not Detected (Not Detect.) 08/15/23 17:53 Coronavirus NL63 (PCR) Not Detected (Not Detect.) 08/15/23 17:53 Human Metapneumovir PCR Not Detected (Not Detect.) 08/15/23 17:53 Influenza A (RT-PCR) Not Detected (Not Detect.) 08/15/23 17:53 Influenza B (RT-PCR) Not Detected (Not Detect.) 08/15/23 17:53 Ur L.pneumophila Ag Not Detected (Not Detected) 08/16/23 07:54 M. pneumoniae (PCR) Not Detected (Not Detect.) 08/15/23 17:53 Parainfluenza 1 (PCR) Not Detected (Not Detect.) 08/15/23 17:53 Parainfluenza 2 (PCR) Not Detected (Not Detect.) 08/15/23 17:53 Parainfluenza 3 (PCR) Not Detected (Not Detect.) 08/15/23 17:53 Parainfluenza 4 (PCR) Not Detected (Not Detect.) 08/15/23 17:53 RSV (PCR) Not Detected (Not Detect.) 08/15/23 17:53 Entero/Rhino (PCR) Not Detected (Not Detect.) 08/15/23 17:53 SARS-CoV-2 RNA (RT-PCR) Not Detected (Not Detect.) 08/15/23 17:53 Ur Strep pneumoniae Ag Not Detected (Not Detected) 08/16/23 07:54 Impressions Chest X-Ray 08/15/23 08:28 IMPRESSION: 1. Slight accentuation of the pulmonary vasculature. 2. Bibasilar atelectasis. 3. Chronic interstitial lung markings. Abdomen/Pelvis CT 08/15/23 14:14 IMPRESSION: Bilateral lower lobe and upper lobe infiltrate/atelectasis. The lungs are limited in evaluation. The chest is limited in evaluation secondary breathing artifact. No acute process seen in the abdomen. There is minimal fluid in between the gallbladder and the right hepatic lobe as well as perihepatic ascites, nonspecific. If patient has right upper quadrant pain a HIDA scan can be performed. Moderate constipation. Colonic diverticulosis without diverticulitis. Small hiatal hernia. Chest CT 08/15/23 14:15 IMPRESSION: Bilateral lower lobe and upper lobe infiltrate/atelectasis. The lungs are limited in evaluation. The chest is limited in evaluation secondary breathing artifact. No acute process seen in the abdomen. There is minimal fluid in between the gallbladder and the right hepatic lobe as well as perihepatic ascites, nonspecific. If patient has right upper quadrant pain a HIDA scan can be performed. Moderate constipation. Colonic diverticulosis without diverticulitis. Small hiatal hernia. Discharge Plan Discharge Anticipated Discharge Date/Time: 08/20/23 10:25 Patient Disposition: Home Health Service Discharge Diagnosis: hypoxia due to CHF + COPD exacerbations Referrals: Yoselyn Figueroa MD [Primary Care Provider] - 1 Week Bryn Newell MD [Physician] - 2 Weeks Discharge Medications: New prednisone 20 mg Tablet 40 mg PO DAILY Qty: 4 0RF doxycycline monohydrate 100 mg Capsule 100 mg PO BID Qty: 4 0RF Continued (DME) blood-glucose meter [FreeStyle [place] Lite] Kit See Rx Instructions .ROUTE .MEDSUPPLY Qty: 1 0RF Rx Instructions: As directed (DME) FreeStyle Lite Strips Strip See Rx Instructions .Route Qty: 100 1RF Rx Instructions: Use 1 test strip once a day loratadine 10 mg tablet 10 mg PO DAILY Qty: 90 3RF albuterol sulfate [Ventolin HFA] 90 mcg/actuation HFA aerosol inhaler 2 puff inhalation Q6H PRN (Reason: bronchospasm) 30 Days Qty: 6.7 1RF amlodipine 10 mg tablet 10 mg PO DAILY Qty: 90 2RF atorvastatin 80 mg tablet 80 mg PO DAILY Qty: 90 2RF (DME) FreeStyle Lite Strips Strip See Rx Instructions .Route Qty: 100 1RF Rx Instructions: Use 1 test strip once a day cetirizine 5 mg/5 mL solution 10 mg PO DAILY PRN (Reason: allergy symptoms) 30 Days Qty: 150 0RF citalopram 20 mg tablet 20 mg PO DAILY 90 Days Qty: 90 0RF dicyclomine 20 mg tablet 20 mg PO TID 30 Days Qty: 90 3RF doxazosin [Cardura] 2 mg tablet 2 mg PO DAILY Qty: 30 11RF ferrous sulfate [iron] 325 mg (65 mg iron) tablet 325 mg PO DAILY 90 Days Qty: 90 1RF folic acid 1 mg tablet 1 mg PO DAILY 90 Days Qty: 90 3RF hydralazine 100 mg tablet 100 mg PO BID Qty: 180 1RF losartan 25 mg tablet 25 mg PO DAILY Qty: 90 1RF metformin 500 mg tablet extended release 24 hr 1,000 mg PO DAILY 90 Days Qty: 180 3RF metoprolol succinate 100 mg tablet extended release 24 hr 100 mg PO DAILY 90 Days Qty: 90 2RF oxybutynin chloride 10 mg tablet extended release 24hr 10 mg PO DAILY Qty: 90 1RF meclizine 25 mg tablet 25 mg PO TID PRN (Reason: dizziness) 30 Days Qty: 90 0RF lidocaine 5 % adhesive patch,medicated 1 patch topical DAILY 30 Days Qty: 30 0RF Rx Instructions: leave on most painful area for up to 12 hrs niacin 500 mg tablet extended release 24 hr 500 mg PO BEDTIME 90 Days Qty: 90 0RF furosemide 80 mg tablet 80 mg PO DAILY 30 Days Qty: 30 0RF alendronate [Fosamax] 70 mg tablet 70 mg PO SHAW ergocalciferol (vitamin D2) [Vitamin D2] 1,250 mcg (50,000 unit) capsule 1,250 mcg PO SHAW cyanocobalamin (vitamin B-12) [Vitamin B-12] 1,000 mcg tablet 1,000 mcg PO 3XW promethazine 25 mg tablet 25 mg PO TID PRN (Reason: nausea and vomiting) 30 Days Qty: 10 1RF omeprazole 20 mg capsule,delayed release(DR/EC) 20 mg PO DAILY 90 Days Qty: 90 1RF hydrocortisone [Anti-Itch (HC)] 1 % cream 1 appl topical BID PRN (Reason: skin irritation) 14 Days Qty: 28.4 0RF fluticasone propion-salmeterol [Advair HFA] 115-21 mcg/actuation HFA aerosol inhaler 2 puff inhalation Q12H Qty: 12 6RF Discharge Orders: Discharge Order (Routine); Ordered 08/20/23 Ordered By: Anay Mohan Diet: Low salt diet Activity on Discharge: As tolerated Stand Alone Forms: Patient Portal Discharge page Print Language: Nauruan Other Ambulatory Orders: Basic Metabolic Panel (Routine) Timeframe: 1 Week Facility: [facility] - Location: Laboratory Ordered By: Anay Mohan B Type Natriuretic Peptide (Routine) Timeframe: 1 Week Facility: [facility] - Location: Laboratory Ordered By: Anay Mohan Magnesium (Routine) Timeframe: 1 Week Facility: [facility] - Location: Laboratory Ordered By: Anay Mohan Care Plan Goals: cardiac + pulmonary health Health Concerns: hypoxia due to CHF + COPD exacerbations Plan of Treatment: resume VNA services oxygen 2L as previously prescribed prednisone 40 mg daily x 2 days doxycycline 100 mg twice daily x 2 days continue all other medications including furosemide 80 mg daily Low-sodium diet: less than 2000 mg of sodium daily. Weigh yourself daily and call your doctor if your weight goes up by more than 3 lb/day or 5 lb/week. Follow up with needle process felt goods supervisor Dr Newell in 2 weeks. Please follow up with your primary care doctor within 1 week. Return to the hospital if you experience recurrent or worsening symptoms. Assessment: See Discharge Summary.
--- NOTE | 2023-08-20 10:55 | MHC.CM.PN ---
Addendum entered by Carmen Denise 08/20/23 11:54: All discharge information has been sent to the facility. Original Note: IMM 08/20/23 Patient is discharged to home today. [facility] will resume services. They have been notified of the discharge today. Patient's son will provide transportation home.
[2023-08-20 11:24] LABS: Glucose, Whole Blood 293 mg/dL (60-115)
--- NOTE | 2023-08-20 13:42 | P.CDIM_ITS ---
PROVIDER RESPONSE TEXT: To clarify, the appropriate diagnosis supported by the clinical indicators: Diabetes mellitus Type 2 with hyperglycemia QUERY TEXT: PHYSICIAN'S DOCUMENTATION REQUEST Date of Query: 08/17/2023 07:31 AM EDT Patient Name: Nedra Drummond Admit Date: 08/15/2023 Dear Anay Mohan, A review of the medical record indicates additional documentation may be needed. Please review below and update the documentation accordingly. Clinical Indicators: POC glucose 398 H DM 2 Diabetic diet, Humalog sliding scale, Hold metformin. Please clarify the following regarding the Complications of Diabetes Mellitus (DM): Diabetes mellitus Type 2 with hyperglycemia Other (explain) Clinically unable to determine (explain) Thank you, Jany Mccarty, CCS, CDIS Use of terms such as suspected, likely, concern for, or probable (associated with a specific diagnosi s that is being evaluated, monitored, or treated as if it exists) are acceptable and can be coded in the inpatient se tting, when documented at the time of discharge. Please use your independent medical judgment in providing your response. THIS QUERY IS PART OF THE PERMANENT MEDICAL RECORD
== END 2023-08-20 13:14 | disposition home health service (06) | DRG 193 ==
LOC: HO.ED 16:22 → HO.EDOVER 17:17 → HO.S3 08-16 07:32
PROVIDERS: Admitting Provider Physician Assistant; Emergency Provider Emergency Medicine; PCP Internal Medicine; Visit Provider Family Medicine
DX: J18.9 Pneumonia, unspecified organism (principal); I50.33 Acute on chronic diastolic (congestive) heart failure; J96.21 Acute and chronic respiratory failure with hypoxia; J45.41 Moderate persistent asthma with (acute) exacerbation; E87.1 Hypo-osmolality and hyponatremia; N17.9 Acute kidney failure, unspecified; J44.1 Chronic obstructive pulmonary disease with (acute) exacerbation; J44.0 Chronic obstructive pulmonary disease with (acute) lower respiratory infection; E78.5 Hyperlipidemia, unspecified; E83.42 Hypomagnesemia; E86.1 Hypovolemia; I11.0 Hypertensive heart disease with heart failure; E11.65 Type 2 diabetes mellitus with hyperglycemia; Z99.81 Dependence on supplemental oxygen; Z20.822 Contact with and (suspected) exposure to COVID-19; D50.9 Iron deficiency anemia, unspecified; Z95.0 Presence of cardiac pacemaker; Z79.51 Long term (current) use of inhaled steroids; Z79.84 Long term (current) use of oral hypoglycemic drugs; Z79.899 Other long term (current) drug therapy
CPT/HCPCS: 36415; 71045; 71250; 74177; 80048; 80053; 81001; 81003; 82803; 82947; 83735; 83880; 84145; 84300; 85025; 86140; 87449; 87633; 87899; 93005; 94640; 97116; 97162; 97530; 99285; J0696; J1650; J1940; J2919; J3475

== ENCOUNTER → 2023-08-15 08:03 | Outpatient (BNV) | payer OTHER, SELFPAY | PROVIDERS: Emergency Provider Emergency Medicine; PCP Internal Medicine; Visit Provider Internal Medicine Cardiovascular Disease | DX: R94.31 Abnormal electrocardiogram [ECG] [EKG] (principal) | CPT/HCPCS: 93010 ==

== ENCOUNTER → 2023-08-15 17:04 | Outpatient (BNV) | payer OTHER, SELFPAY | PROVIDERS: Admitting Provider Physician Assistant; Emergency Provider Emergency Medicine; PCP Internal Medicine; Visit Provider Physician Assistant | DX: J96.21 Acute and chronic respiratory failure with hypoxia (principal); J44.1 Chronic obstructive pulmonary disease with (acute) exacerbation; I50.33 Acute on chronic diastolic (congestive) heart failure; N17.9 Acute kidney failure, unspecified; E87.1 Hypo-osmolality and hyponatremia | CPT/HCPCS: 99223; 99232; 99233; 99239 ==

== ENCOUNTER 2023-08-25 20:31 | Inpatient (IN) | payer OTHER, SELFPAY ==
[2023-08-25] VITALS (10 sets, daily range): BP systolic 122–153; BP diastolic 37–54; PULSE 61–93; RESP 15–21; TEMP 37.6–39.5; O2SAT 79–96; BMI 29.3
--- NOTE | ~2023-08-25 | CT_ITS ---
EXAMINATION: CT CHEST, ABDOMEN AND PELVIS WITH CONTRAST CLINICAL INFORMATION: Shortness of breath and fever COMPARISON: None available. TECHNIQUE: Multidetector volumetric CT imaging of the chest, abdomen and pelvis was obtained after the administration of 85 mL of Omnipaque 350 intravenous contrast without immediate adverse reactions. Axial MIP volume rendering provided. Sagittal and coronal reformatted images were obtained. This CT examination was performed using dose optimization techniques as appropriate, variously including the following: *Automated exposure control *Adjustment of mA and/or kV according to patient size (this includes techniques or standardized protocols for targeted exams where dose is matched to indication/reason for exam; i.e. extremities or head) *Use of iterative reconstruction technique DLP: 791 mGy-cm FINDINGS: LIBRARY SALES CONSULTANT: Unremarkable. LUNGS: There is consolidation at both lung bases associated with small bilateral pleural effusions. MEDIASTINUM: The heart is enlarged. There is no significant pericardial effusion. Multiple small nonspecific mediastinal lymph nodes measuring up to 1.5 cm. PLEURA: There are small bilateral pleural effusions. AXILLA: No lymphadenopathy. LIVER, GALLBLADDER, AND BILIARY TREE: The liver is normal in size, shape, and attenuation. No focal hepatic lesion or biliary ductal dilatation is present. A single small gallstone is noted. There is minimal infiltrative change at the lazara hepatis. PANCREAS: Unremarkable. SPLEEN: Unremarkable. ADRENAL GLANDS: Unremarkable. KIDNEYS AND URETERS: The kidneys are normal in size, shape, and attenuation. No hydronephrosis, hydroureter, or calculi seen. No perinephric stranding. There is a 1.1 cm cyst mid to upper pole left kidney. BLADDER: Unremarkable. GASTROINTESTINAL TRACT: There are diverticula of the descending and sigmoid colon without diverticulitis. ABDOMINAL WALL: There is a minimal umbilical hernia containing fat. LYMPH NODES: Normal. VASCULAR: Unremarkable. PELVIC VISCERA: Unremarkable. OSSEOUS STRUCTURES: There is a chronic T10 compression fracture CT/CT chest w IV con IMPRESSION: 1. There is consolidation at both lung bases associated with small bilateral pleural effusions. Consolidation is possibly a combination of atelectasis and/or pneumonia. 2. There is cardiomegaly. 3. There is minimal infiltrative change at the lazara hepatis which is nonspecific. 4. There is a single small gallstone. 5. Diverticulosis without diverticulitis. Fleischner guidelines were followed.
--- NOTE | ~2023-08-25 | CT_ITS ---
EXAMINATION: CT CHEST, ABDOMEN AND PELVIS WITH CONTRAST CLINICAL INFORMATION: Shortness of breath and fever COMPARISON: None available. TECHNIQUE: Multidetector volumetric CT imaging of the chest, abdomen and pelvis was obtained after the administration of 85 mL of Omnipaque 350 intravenous contrast without immediate adverse reactions. Axial MIP volume rendering provided. Sagittal and coronal reformatted images were obtained. This CT examination was performed using dose optimization techniques as appropriate, variously including the following: *Automated exposure control *Adjustment of mA and/or kV according to patient size (this includes techniques or standardized protocols for targeted exams where dose is matched to indication/reason for exam; i.e. extremities or head) *Use of iterative reconstruction technique DLP: 791 mGy-cm FINDINGS: MEDICAL LAB TECH INSTRUCTOR: Unremarkable. LUNGS: There is consolidation at both lung bases associated with small bilateral pleural effusions. MEDIASTINUM: The heart is enlarged. There is no significant pericardial effusion. Multiple small nonspecific mediastinal lymph nodes measuring up to 1.5 cm. PLEURA: There are small bilateral pleural effusions. AXILLA: No lymphadenopathy. LIVER, GALLBLADDER, AND BILIARY TREE: The liver is normal in size, shape, and attenuation. No focal hepatic lesion or biliary ductal dilatation is present. A single small gallstone is noted. There is minimal infiltrative change at the lazara hepatis. PANCREAS: Unremarkable. SPLEEN: Unremarkable. ADRENAL GLANDS: Unremarkable. KIDNEYS AND URETERS: The kidneys are normal in size, shape, and attenuation. No hydronephrosis, hydroureter, or calculi seen. No perinephric stranding. There is a 1.1 cm cyst mid to upper pole left kidney. BLADDER: Unremarkable. GASTROINTESTINAL TRACT: There are diverticula of the descending and sigmoid colon without diverticulitis. ABDOMINAL WALL: There is a minimal umbilical hernia containing fat. LYMPH NODES: Normal. VASCULAR: Unremarkable. PELVIC VISCERA: Unremarkable. OSSEOUS STRUCTURES: There is a chronic T10 compression fracture CT/CT abdomen pelvis w IV con IMPRESSION: 1. There is consolidation at both lung bases associated with small bilateral pleural effusions. Consolidation is possibly a combination of atelectasis and/or pneumonia. 2. There is cardiomegaly. 3. There is minimal infiltrative change at the lazara hepatis which is nonspecific. 4. There is a single small gallstone. 5. Diverticulosis without diverticulitis. Fleischner guidelines were followed.
--- NOTE | ~2023-08-25 | XR_ITS ---
EXAMINATION: XR CHEST CLINICAL INFORMATION: Cough and dyspnea. Shortness of breath. COMPARISON: Chest x-ray August 15, 2023. CT chest August 15, 2023, July 02, 2021. TECHNIQUE: Frontal portable view of the chest was obtained. 9:46 PM FINDINGS: Pacemaker lead in right atrium and right ventricle. Pulmonary vascular congestion which is increased since prior study. There are increased lung markings consistent with interstitial edema. No significant pleural effusion. No focal consolidation. XR/XR chest 1V IMPRESSION: Pulmonary vascular congestion with interstitial edema.
--- NOTE | ~2023-08-25 | US_ITS ---
EXAMINATION: US ABDOMEN LIMITED CLINICAL INFORMATION: Right upper quadrant pain.. COMPARISON: CT abdomen pelvis 08/26/2023. TECHNIQUE: Real-time imaging of the right upper quadrant abdominal viscera. FINDINGS: PANCREAS: Visualized pancreatic head and body are normal in appearance LIVER: Liver is partially visualized. No intrahepatic biliary duct dilatation identified. Grossly normal hepatic capsular size and contour. GALLBLADDER: Gallbladder demonstrates partial physiologic contraction. The gallbladder wall measures up to 9 mm in width. No pericholecystic fluid collections identified. A single hyperechoic focus measuring 4 mm diameter is present dependently within the gallbladder lumen approximately the gallbladder neck. This focus appears to demonstrate partial posterior acoustic shadowing. COMMON BILE DUCT: Normal in caliber measuring 0.6 cm in diameter. Arch visualization is made of the inferior vena cava which is grossly normal in appearance. US/US abdomen limited IMPRESSION: *Single 4 mm echogenic focus within the gallbladder lumen suspicious for a single gallstone. A gallbladder wall polyp could have a similar appearance. Of note, the gallbladder is partially contracted during the examination resulting in suboptimal visualization of the gallbladder. As clinically indicated, consider further sonographic evaluation when the gallbladder may be more physiologically distended. *Gallbladder wall thickness measures 9 mm in width though the gallbladder is partially contracted. This gallbladder wall this may represent physiologic contraction of the gallbladder or gallbladder wall inflammatory changes. As noted above, images are obtained during partial contraction of the gallbladder. Findings are most suspicious for mural thickening related to physiologic contraction. *No biliary duct dilatation.
--- NOTE | 2023-08-25 20:33 | ECG_ITS ---
Test Reason : CHEST PAIN Blood Pressure : / mmHG Vent. Rate : 078 BPM Atrial Rate : 078 BPM P-R Int : 122 ms QRS Dur : 080 ms QT Int : 362 ms P-R-T Axes : 000 044 037 degrees QTc Int : 412 ms Normal sinus rhythm Normal ECG When compared with ECG of 15-AUG-2023 08:03, QT has shortened Referred By: Karis Cruz Electronically Signed By:Markell Brown
[2023-08-25 21:11] LABS: MANUAL DIFF FLAG NO
[2023-08-25 21:17] LABS: Basophils Percent Auto 0.1 % (0-2); Eosinophils Absolute Auto 0.2 X10*3/uL (0.0-0.4); Eosinophils Percent Auto 1.3 % (0-4); Hemoglobin 10.1 g/dl (12.0-16.0); Imm Gran Abs Auto 0.09 X10*3/uL (0.00-0.03); Imm Gran Pct Auto 0.6 % (0.0-0.4); Lymphocytes Absolute Auto 1.3 X10*3/uL (1.2-4.9); Lymphocytes Percent Auto 9.1 % (20-40); Mean Corpuscular HGB Conc 31.6 g/dl (31.0-35.0); Mean Corpuscular Hemoglobin 23.7 pg (27.0-33.0); Mean Corpuscular Volume 75.1 fL (80.0-98.0); Mean Platelet Volume 9.8 fL (9.4-12.3); Monocytes Absolute Auto 1.1 X10*3/uL (0.1-1.2); Monocytes Percent Auto 7.6 % (2-11); Neutrophils Absolute Auto 11.5 x10*3/uL (2.0-8.3); Neutrophils Percent Auto 81.3 % (45-73); Platelet Count 240 X10*3/uL (160-400); Red Blood Count 4.26 X10*6/uL (4.20-5.50); Red Cell Distribution Width 18.4 % (11.0-16.0); White Blood Count 14.1 X10*3/uL (4.8-10.8)
--- NOTE | 2023-08-25 21:35 | ED_ITS ---
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 Related Data Home Medications ?Medication ?Instructions ?Recorded ?Confirmed alendronate 70 mg tablet (Fosamax) 70 mg PO SHAW 07/20/23 08/15/23 ergocalciferol (vitamin D2) 1,250 1,250 mcg PO SHAW 07/20/23 08/15/23 mcg (50,000 unit) capsule (Vitamin D2) cyanocobalamin (vitamin B-12) 1,000 mcg PO 3XW 08/15/23 08/15/23 1,000 mcg tablet (Vitamin B-12) Previous Rx's ?Medication ?Instructions ?Recorded blood-glucose meter (FreeStyle #1 ea 01/03/20 Connelly Lite kit) promethazine 25 mg tablet 25 mg PO TID PRN nausea and 04/27/22 vomiting 30 days #10 tabs blood sugar diagnostic (FreeStyle #100 ea 02/04/23 Lite Strips) loratadine 10 mg tablet 10 mg PO DAILY #90 caps 04/05/23 albuterol sulfate 90 mcg/actuation 2 puff inhalation Q6H PRN 07/11/23 aerosol inhaler (Ventolin HFA) bronchospasm 30 days #6.7 grams amlodipine 10 mg tablet 10 mg PO DAILY #90 tabs 07/11/23 atorvastatin 80 mg tablet 80 mg PO DAILY #90 tabs 07/11/23 blood sugar diagnostic (FreeStyle #100 ea 07/11/23 Lite Strips) cetirizine 5 mg/5 mL oral solution 10 mg (10 mL) PO DAILY PRN allergy 07/11/23 symptoms 30 days #150 mL citalopram 20 mg tablet 20 mg PO DAILY 90 days #90 tabs 07/11/23 dicyclomine 20 mg tablet 20 mg PO TID 30 days #90 tabs 07/11/23 doxazosin 2 mg tablet (Cardura) 2 mg PO DAILY #30 tabs 07/11/23 ferrous sulfate 325 mg (65 mg 325 mg PO DAILY 90 days #90 tabs 07/11/23 iron) tablet (iron) folic acid 1 mg tablet 1 mg PO DAILY 90 days #90 tabs 07/11/23 hydralazine 100 mg tablet 100 mg PO BID #180 caps 07/11/23 losartan 25 mg tablet 25 mg PO DAILY #90 caps 07/11/23 metformin 500 mg tablet,extended 1,000 mg (2 x 500 mg) PO DAILY 90 07/11/23 release 24 hr days #180 tabs metoprolol succinate 100 mg 100 mg PO DAILY 90 days #90 tabs 07/11/23 tablet,extended release 24 hr oxybutynin chloride 10 mg 10 mg PO DAILY #90 caps 07/11/23 tablet,extended release 24 hr lidocaine 5 % topical patch 1 patch topical DAILY 30 days #30 07/19/23 ea meclizine 25 mg tablet 25 mg PO TID PRN dizziness 30 days 07/19/23 #90 tabs niacin 500 mg tablet,extended 500 mg PO BEDTIME 90 days #90 tabs 07/19/23 release 24 hr furosemide 80 mg tablet 80 mg PO DAILY 30 days #30 tabs 08/04/23 hydrocortisone 1 % topical cream 1 appl topical BID PRN skin 08/11/23 (Anti-Itch (hydrocortisone)) irritation 2 weeks #28.4 grams omeprazole 20 mg capsule,delayed 20 mg PO DAILY 90 days #90 caps 08/11/23 release fluticasone propionate 115 2 puff inhalation Q12H #12 grams 08/13/23 mcg-salmeterol 21 mcg/actuation HFA inhaler (Advair HFA) doxycycline monohydrate 100 mg 100 mg PO BID #4 caps 08/20/23 capsule prednisone 20 mg tablet 40 mg (2 x 20 mg) PO DAILY #4 tabs 08/20/23 Allergies Allergy/AdvReac Type Severity Reaction Status Date / Time egg [EGG] AdvReac Intermediate DIARRHEA Verified 08/25/23 21:06 oats [OATS] AdvReac Intermediate DIARRHEA Verified 08/25/23 21:06 FROM OATMEAL Pioglitazone HCl AdvReac Intermediate edema Uncoded 08/13/23 09:54 Review of Systems 2 Review of Systems: Pertinent positives and negatives as stated in HPI [facility] Past Medical History Source: nursing notes reviewed Medical History Acute on chronic heart failure with preserved ejection fraction (HFpEF) Acute on chronic combined systolic (congestive) and diastolic (congestive) heart failure Acute hypoxemic respiratory failure Acute on chronic diastolic (congestive) heart failure Hearing loss CHF (congestive heart failure) Iron deficiency anemia Left hemiparesis Cardiac pacemaker in situ Diastolic dysfunction Ear discomfort Otitis media Moderate asthma Pure hypercholesterolemia Osteoporosis B12 deficiency Gallstones GERD (gastroesophageal reflux disease) Hypovitaminosis D History of stroke Diabetes mellitus Essential hypertension Surgical History History of pacemaker Family History Family History Father No problems noted. Mother No problems noted. Social History Social History Household Members: Family Housing: House Housing Other:: lives with daughter Are you a primary career services coordinator to a significant other at home: No Do you presently have visiting nurse or other home services: Yes (PT and Nursing) Alcohol intake: never Patient Tobacco Use Status: Former Tobacco user Tobacco use type: Cigarette Smoked in Last 30 Days: No e-Cigarette/Vaping Use: Never Used Second Hand Smoke Exposure: No Advance Directives: Yes Advance Directives on File: Yes Advance Directives Date on File: 07/02/21 Do you have a plan to hurt others: No Plan service: No Current occupational status: disabled Cognitive needs: Yes (walker) Hearing needs: No Vision needs: Yes (glasses) Physical Exam ED Vital Signs: Vital Signs - 24 hr 08/25/23 21:04 08/25/23 21:47 08/25/23 21:51 Temperature 99.6 F 103.1 F H 103.1 F H Pulse Rate 78 78 82 Respiratory Rate 18 21 H 18 Blood Pressure 153/53 H 145/54 H Pulse Oximetry 95 79 L Oxygen Delivery Method Nasal Cannula Room Air Venturi Mask Oxygen Flow Rate 08/25/23 21:55 08/25/23 22:14 08/25/23 22:45 Temperature 102.9 F H 102 F H 101 F H Pulse Rate 93 71 62 Respiratory Rate 19 15 Blood Pressure 138/53 L Pulse Oximetry 93 93 94 Oxygen Delivery Method Nasal Cannula Nasal Cannula Nasal Cannula Oxygen Flow Rate 4 4 2 08/25/23 23:05 08/25/23 23:10 08/25/23 23:26 Temperature 101 F H 100.1 F 100 F Pulse Rate 63 66 63 Respiratory Rate 17 16 15 Blood Pressure 128/48 L 129/50 L 126/45 L Pulse Oximetry 95 96 96 Oxygen Delivery Method Nasal Cannula Nasal Cannula Nasal Cannula Oxygen Flow Rate 2 2 08/25/23 23:32 08/26/23 00:49 08/26/23 01:48 Temperature 100 F 99.1 F 97.4 F Pulse Rate 61 60 60 Respiratory Rate 15 16 14 Blood Pressure 122/37 L 115/49 L 119/47 L Pulse Oximetry 95 96 98 Oxygen Delivery Method Room Air Nasal Cannula Nasal Cannula Oxygen Flow Rate 2 2 2 08/26/23 02:48 08/26/23 03:20 Temperature 97.4 F 97.2 F Pulse Rate 59 60 Respiratory Rate 14 13 Blood Pressure 128/51 L 140/58 H Pulse Oximetry 97 97 Oxygen Delivery Method Nasal Cannula Nasal Cannula Oxygen Flow Rate 2 2 BMI result Body Mass Index 29.3 VITAL SIGNS: Reviewed. GENERAL: Elevated BMI, Well developed, well nourished, in mild distress. HEAD: Normocephalic/atraumatic EYES: PERRLA, EOMI EARS: Ext canals without abnormality, TMs non-bulging and non-erythematous NOSE: Nares patent bilateral OROPHARYNX: no oral lesions noted, posterior pharynx clear and non-erythematous without noted tonsillar enlargement/erythema/exudates NECK: Supple, no adenopathy LUNGS: Increased work of breathing, tachypnea, decreased breath sounds SpO2<91> on 2 L nasal cannula CARDIOVASCULAR: Regular rate and rhythm without noted murmurs, no JVD or lower extremity edema. ABDOMEN: Soft, right-sided abdominal discomfort on deep palpation, non-distended with bowel sounds. MUSCULOSKELETAL: No tenderness, deformities, or effusions noted on gross inspection. EXTREMITIES: No cyanosis, clubbing or edema. SKIN: Inspection of the skin reveals no rashes, tactile fever NEUROLOGIC: Alert and oriented x 3. Strength and sensation to light touch were grossly intact x 4. Medications Administered Discontinued Medications Generic Name Dose Route Start Last Admin Trade Name Freq PRN Reason Stop Dose Admin Acetaminophen 975 mg 08/25/23 21:42 08/25/23 21:50 Acetaminophen 325 Mg Tablet PO 08/25/23 21:43 975 mg ONCE ONE Administration Furosemide 60 mg 08/25/23 22:17 08/25/23 22:33 Furosemide 100 Mg/10 Ml Vial IVPUSH 08/25/23 22:18 60 mg ONCE ONE Administration Protocol Sodium Chloride 500 mls @ 999 mls/hr 08/25/23 21:45 08/25/23 23:25 Ns IV 08/25/23 22:15 Infused .Q31M JAZMÍN Infusion Magnesium Sulfate 2 gm in 50 mls @ 150 mls/hr 08/25/23 21:42 08/25/23 22:22 Magnesium Sulfate/H2o IV 08/25/23 22:01 Infused ONCE ONE Infusion Cefepime HCl 1 gm/ Sodium 50 mls @ 100 mls/hr 08/25/23 21:57 08/25/23 23:10 Chloride IV 08/25/23 22:26 Infused ONCE ONE Infusion Iohexol 85 ml 08/26/23 01:39 08/26/23 01:41 Iohexol 350 Mg/Ml 100 Ml Infus..Btl IV 08/26/23 01:40 85 ml ONCE ONE Administration Ondansetron HCl 4 mg 08/25/23 21:42 08/25/23 21:58 Ondansetron Hcl 4 Mg/2 Ml Vial IVPUSH 08/25/23 21:43 4 mg ONCE ONE Administration Medical Decision Making Medical Decision Making [facility] Narrative: 2129: 78-year-old female with history and clinical presentation, DDX: COPD exacerbation/CHF exacerbation/pneumonia/viral illness/UTI, possible intra- abdominal infection. INTERVENTION: Tylenol, 500 cc of IV fluids, antibiotics, magnesium sulfate, Lasix I reviewed all investigations and there is a new leukocytosis with left shift, there is a stable microcytic anemia no thrombocytopenia. VBG does not demonstrate any respiratory acidosis or hypercapnia. Chemistry indices do not demonstrate an TUTU and there is no significant electrolyte derangement, other than magnesium which was repleted with 2 g of magnesium sulfate. I sensitivity troponin mildly elevated but likely secondary to underlying increased work of breathing but will repeat, patient also has elevated BNP which was treated with 60 mg of Lasix. Urinalysis negative for UTI or hematuria. Viral testing is negative for influenza/COVID-19. Chest x-ray is consistent with clinical and BNP findings for pulmonary edema and was treated. As no source of infection has yet been identified, will proceed with CT of the chest/abdomen/pelvis. 2304: I discussed case with in patient hospitalist who accepts admission with the understanding that I will follow-up on CT scans. CT scans only significant for bilateral pneumonia with effusion. Differential Diagnosis Differential Diagnoses: The differential diagnosis associated with the presentation includes Please see the discussion above Admission/Observation Consideration of admission/observation: Escalation of care including admission/observation considered Please see the discussion above Consult Healthcare Provider Management of the patient was discussed with: Hospitalist Please see the discussion above Lab Data MDM Lab Attestation statement: I reviewed the patient's lab results. Please see the discussion above 08/25/23 21:01 08/25/23 21:01 Labs: Lab Results 08/25/23 08/25/23 08/25/23 Range/Units 21:01 22:22 22:23 WBC 14.1 H (4.8-10.8) X10*3/uL RBC 4.26 (4.20-5.50) X10*6/uL Hgb 10.1 L (12.0-16.0) g/dl Hct 32.0 L (37.0-47.0) % MCV 75.1 L (80.0-98.0) fL MCH 23.7 L (27.0-33.0) pg MCHC 31.6 (31.0-35.0) g/dl RDW 18.4 H (11.0-16.0) % Plt Count 240 (160-400) X10*3/uL MPV 9.8 (9.4-12.3) fL Immature Gran % (Auto) 0.6 H (0.0-0.4) % Neut % (Auto) 81.3 H (45-73) % Lymph % (Auto) 9.1 L (20-40) % [place] % (Auto) 7.6 (2-11) % Eos % (Auto) 1.3 (0-4) % Baso % (Auto) 0.1 (0-2) % Lymph # (Auto) 1.3 (1.2-4.9) X10*3/uL Alpine # (Auto) 1.1 (0.1-1.2) X10*3/uL Eos # (Auto) 0.2 (0.0-0.4) X10*3/uL Baso # (Auto) 0.0 (0.0-0.2) X10*3/uL Abs Immat Gran (auto) 0.09 H (0.00-0.03) X10*3/uL Absolute Neuts (auto) 11.5 H (2.0-8.3) x10*3/uL Absolute Nucleated RBC 0.000 (0.0-0.012) X10*3/uL Nucleated RBC % (auto) 0.0 (0.0-0.2) /100WBC VBG pH 7.56 H (7.32-7.43) VBG pCO2 42 mmHg VBG pO2 69 mmHg VBG HCO3 38 H (22-26) mmol/L VBG O2 Saturation 97.0 % VBG Base Excess 14.8 mmol/L Sodium 137 (135-145) mmol/L Potassium 3.7 (3.3-5.1) mmol/L Chloride 95 L (96-108) mmol/L Carbon Dioxide 33 H (22-29) mmol/L Anion Gap 13 (12-20) BUN 18 H (9-16) mg/dL Creatinine 1.04 (0.5-1.4) mg/dL Estim Creat Clear Calc 40.2 Estimated GFR 51 Random Glucose 232 H (60-115) mg/dL Lactic Acid 0.9 (0.5-2.0) mmol/L Calcium 9.2 (8.4-10.2) mg/dL Magnesium 1.0 L* (1.6-2.6) mg/dL Total Bilirubin 0.6 (0.0-1.0) mg/dL AST 25 (5-31) U/L ALT 54 H (0-31) U/L Alkaline Phosphatase 98 (39-117) U/L Troponin I High Sens 22.1 H D (<3.5-17.0) ng/L B-Natriuretic Peptide 289 H (<100) pg/mL Total Protein 6.9 (6.5-8.0) g/dL Albumin 3.4 L (3.5-5.0) g/dL Urine Color Yellow Urine Appearance Clear Urine pH 5.5 (5.0-9.0) Ur Specific [place] 1.010 (1.005-1.025) Urine Protein Negative (Neg-Trace) mg/dL Urine Glucose (UA) Negative (Negative) mg/dL Urine Ketones Negative (Negative) mg/dL Urine Blood Negative (Negative) Urine Nitrite Negative (Negative) Ur Leukocyte Esterase Small (1+) H (Negative) Urine RBC 0-2 (0-2) /HPF Urine WBC 0-5 (0-5) /HPF Ur Squamous Epith Cells 0-2 (0-2) /HPF Urine Bacteria None Seen (None Seen) Hyaline Casts 0-2 (0-2) /LPF COVID-19 (LUAN) (Negative) COVID-19 Clin Com Influenza Type A (SANDRA) (Negative) Influenza Type B (SANDRA) (Negative) Influenza A & B Note 08/25/23 08/26/23 Range/Units 22:29 02:17 WBC (4.8-10.8) X10*3/uL RBC (4.20-5.50) X10*6/uL Hgb (12.0-16.0) g/dl Hct (37.0-47.0) % MCV (80.0-98.0) fL MCH (27.0-33.0) pg MCHC (31.0-35.0) g/dl RDW (11.0-16.0) % Plt Count (160-400) X10*3/uL MPV (9.4-12.3) fL Immature Gran % (Auto) (0.0-0.4) % Neut % (Auto) (45-73) % Lymph % (Auto) (20-40) % Alpine % (Auto) (2-11) % Eos % (Auto) (0-4) % Baso % (Auto) (0-2) % Lymph # (Auto) (1.2-4.9) X10*3/uL Alpine # (Auto) (0.1-1.2) X10*3/uL Eos # (Auto) (0.0-0.4) X10*3/uL Baso # (Auto) (0.0-0.2) X10*3/uL Abs Immat Gran (auto) (0.00-0.03) X10*3/uL Absolute Neuts (auto) (2.0-8.3) x10*3/uL Absolute Nucleated RBC (0.0-0.012) X10*3/uL Nucleated RBC % (auto) (0.0-0.2) /100WBC VBG pH (7.32-7.43) VBG pCO2 mmHg VBG pO2 mmHg VBG HCO3 (22-26) mmol/L VBG O2 Saturation % VBG Base Excess mmol/L Sodium (135-145) mmol/L Potassium (3.3-5.1) mmol/L Chloride (96-108) mmol/L Carbon Dioxide (22-29) mmol/L Anion Gap (12-20) BUN (9-16) mg/dL Creatinine (0.5-1.4) mg/dL Estim Creat Clear Calc Estimated GFR Random Glucose (60-115) mg/dL Lactic Acid (0.5-2.0) mmol/L Calcium (8.4-10.2) mg/dL Magnesium (1.6-2.6) mg/dL Total Bilirubin (0.0-1.0) mg/dL AST (5-31) U/L ALT (0-31) U/L Alkaline Phosphatase (39-117) U/L Troponin I High Sens 28.2 H (<3.5-17.0) ng/L B-Natriuretic Peptide (<100) pg/mL Total Protein (6.5-8.0) g/dL Albumin (3.5-5.0) g/dL Urine Color Urine Appearance Urine pH (5.0-9.0) Ur Specific [place] (1.005-1.025) Urine Protein (Neg-Trace) mg/dL Urine Glucose (UA) (Negative) mg/dL Urine Ketones (Negative) mg/dL Urine Blood (Negative) Urine Nitrite (Negative) Ur Leukocyte Esterase (Negative) Urine RBC (0-2) /HPF Urine WBC (0-5) /HPF Ur Squamous Epith Cells (0-2) /HPF Urine Bacteria (None Seen) Hyaline Casts (0-2) /LPF COVID-19 (LUAN) Negative (Negative) COVID-19 Clin Com See Note Influenza Type A (SANDRA) Negative (Negative) Influenza Type B (SANDRA) Negative (Negative) Influenza A & B Note See Note Independent Interpretation I performed an independent interpretation of an: EKG Interpretation: Normal sinus rhythm, HR-78, no STEMI, SC/QRS/QTC is within normal limits. Radiology Impression Discussion of test interpretation with radiology: I have reviewed the radiologist's reading. Radiologist Impression: Please see the discussion above External Record Review External record reviewed: Inpatient record, Outpatient record, Prior outpatient labs and Prior outpatient radiology Chronic Conditions Patient?s care impacted by: Diabetes and Hypertension CHF Critical Care Time Critical Care Time Critical Care Time: Yes Total Critical Care Time: 60 Attestation: I personally attest to this time spent taking care of the patient. Discharge Plan Discharge Clinical Impression: Sepsis, Hypomagnesemia, CHF exacerbation, Pneumonia, Pleural effusion Patient Disposition: Admitted As Inpatient Print Language: Gabonese
[2023-08-25 21:36] LABS: Troponin-I High Sensitivity 22.1 ng/L (<3.5-17.0)
[2023-08-25 21:40] LABS: Alanine Aminotransferase 54 U/L (0-31); Albumin Level 3.4 g/dL (3.5-5.0); Alkaline Phosphatase 98 U/L (39-117); Anion Gap 13 (12-20); Aspartate Amino Transferase 25 U/L (5-31); Bilirubin Total 0.6 mg/dL (0.0-1.0); Blood Urea Nitrogen 18 mg/dL (9-16); Calcium 9.2 mg/dL (8.4-10.2); Carbon Dioxide 33 mmol/L (22-29); Chloride 95 mmol/L (96-108); Creatinine Clr Calc Pharmacy 40.2; Estimated Glomerular Filt Rate 51; Glucose Random 232 mg/dL (60-115); Potassium 3.7 mmol/L (3.3-5.1); Sodium 137 mmol/L (135-145); Total Protein 6.9 g/dL (6.5-8.0)
[2023-08-25] MEDS: Acetaminophen 325 MG TABLET 975 MG PO (21:50)
[2023-08-25] MEDS: Magnesium Sulfate/H2O 2 GM/50 ML PIGGYBACK IV (21:58)
[2023-08-25] MEDS: ondansetron HCL 4 MG/2 ML VIAL IVPUSH (21:58)
[2023-08-25] MEDS: 0.9 % Sodium Chloride 500 ML 999 ML IV (22:01)
--- NOTE | 2023-08-25 22:06 | MHC.EDTECH ---
Patient came in from the waiting room,changed into hospital attire,placed on the special needs babysitter,vitals taken,temp is 103.1 rectally, continuous rectal placed,patient tolerated well,assisted RN with a straight cath.blood cultures,lactic and urine obtained and sent to lab
[2023-08-25 22:31] LABS: VBG Base Excess 14.8 mmol/L; VBG HCO3 38 mmol/L (22-26); VBG pCO2 42 mmHg; VBG pH 7.56 (7.32-7.43); VBG pO2 69 mmHg
[2023-08-25 22:32] LABS: Venous Blood Gas Refer to POC result
[2023-08-25 22:33] LABS: B Type Natriuretic Peptide 289 pg/mL (<100)
[2023-08-25] MEDS: Furosemide 100 MG/10 ML VIAL 60 MG IVPUSH (22:33)
[2023-08-25 22:37] LABS: Lactic Acid 0.9 mmol/L (0.5-2.0)
[2023-08-25] MEDS: cefEPime HCl 1 GM in 0.9 % Sodium Chloride 50 ML IV (22:41)
[2023-08-25 22:42] LABS: Appearance Urine Clear; Color Urine Yellow; Glucose Urine UA Negative (Negative); Leukocyte Esterase Urine Small (1+) (Negative); Nitrite Urine Negative (Negative); PH 5.5 (5.0-9.0); UMIC TRIGGER UACC YES; Urine Blood Negative (Negative); Urine Ketones Negative (Negative); Urine Protein Negative (Neg-Trace)
--- NOTE | 2023-08-25 22:42 | PC.NURSE ---
DELAY IN ANTIBIOTIC DUE TO PT HARD STICK AND IV INFILTRATED . BLOOD CULTURE DELAY WELL
[2023-08-25 22:53] LABS: IDNOW Serial# 152EDE1D; Influenza A Negative (Negative); Influenza B2 Negative (Negative)
[2023-08-25 22:54] LABS: COVID-19 Test Negative (Negative); IDNOW Serial# 08D9AD1C
[2023-08-25 23:00] LABS: Bacteria Urine None Seen (None Seen); Hyaline Casts Urine 0-2 /LPF (0-2); RBC Urine 0-2 /HPF (0-2); Squamous Epithelial Cell Urine 0-2 /HPF (0-2); UACC Culture Trigger YES; WBC Urine 0-5 /HPF (0-5)
--- NOTE | 2023-08-25 23:33 | MHC.EDTECH ---
Hourly rounds and vitals completed,rectal temp is 100.8,RN at bedside,placed a pure-wick to keep patient clean and dry,patient tolerated well,repositioned to comfort
[2023-08-26] VITALS (16 sets, daily range): BP systolic 105–140; BP diastolic 44–60; PULSE 59–71; RESP 13–18; TEMP 35.8–37.3; O2SAT 94–99; BMI 28.8
--- NOTE | 2023-08-26 00:27 | PC.NURSE ---
PT NEEDS ULTRASOU ND IV PLACED FOR ORDERED CT SCAN, PROVIDER AWARE, ICU TEAM CALLED FOR PLACEMENT
--- NOTE | 2023-08-26 00:33 | MHC.EDTECH ---
Belongings list completed and copy placed in chart.
[2023-08-26] MEDS: iohexoL 350 MG/ML 100 ML INFUS..BTL 85 ML IV (01:41)
[2023-08-26 02:39] LABS: Troponin-I High Sensitivity 28.2 ng/L (<3.5-17.0)
--- NOTE | 2023-08-26 03:31 | MHC.EDTECH ---
Hourly rounds and vitals completed,patient is resting at this time,pure-wick is draining patient is clean and dry,call bonilla in reach
--- NOTE | 2023-08-26 04:12 | PM.IMHP ---
History of Present Illness Date of Service: 08/26/23 Chief Complaint: Dyspnea, fever This is a 78-year-old female with pertinent history of congestive heart failure with preserved ejection fraction, mixed hyperlipidemia, chronic hypoxemic respiratory failure on 2 L supplemental oxygen due to asthma, cmd-[id number]-blalclrgm diabetes mellitus, hypertension, osteoporosis who presents to the emergency department for evaluation of fever, chills and dyspnea. Of note, patient was recently admitted with CHF + COPD exacerbation and discharged on 08/19 with p.o. steroids and p.o. doxycycline. History obtained with the help of natural resources engineer. Patient states that symptoms started 3 days prior to presentation. Patient has been having dyspnea which is worse with exertion. No orthopnea or PND. No wheezing. Also has been having productive cough with yellowish sputum production. Also endorses fevers and chills. Had 1 episode of nonbloody emesis. Also complaining of generalized abdominal discomfort. No chest discomfort, palpitations, changes in urinary or bowel habits. In the emergency department, patient was found to be septic. WBC found to be elevated and imaging concerning for pneumonia. Review of Systems Constitutional: Constitutional: Reports chills and Reports fever(s) Cardiovascular: Cardiovascular: Reports dyspnea on exertion Respiratory: Respiratory: Reports cough and Reports dyspnea on exertion Gastrointestinal: Gastrointestinal: Reports no additional gastrointestinal complaints Genitourinary: Genitourinary: Reports no additional female genitourinary complaints [facility] Medical History Acute on chronic heart failure with preserved ejection fraction (HFpEF) Acute on chronic combined systolic (congestive) and diastolic (congestive) heart failure Acute hypoxemic respiratory failure Acute on chronic diastolic (congestive) heart failure Hearing loss CHF (congestive heart failure) Iron deficiency anemia Left hemiparesis Cardiac pacemaker in situ Diastolic dysfunction Ear discomfort Otitis media Moderate asthma Pure hypercholesterolemia Osteoporosis B12 deficiency Gallstones GERD (gastroesophageal reflux disease) Hypovitaminosis D History of stroke Diabetes mellitus Essential hypertension Family History Father No problems noted. Mother No problems noted. Surgical History History of pacemaker Social History Household Members: Family Housing: House Housing Other:: lives with daughter Are you a primary healthcare advisory services manager to a significant other at home: No Do you presently have visiting nurse or other home services: Yes (PT and Nursing) Alcohol intake: never Patient Tobacco Use Status: Former Tobacco user Tobacco use type: Cigarette Smoked in Last 30 Days: No e-Cigarette/Vaping Use: Never Used Second Hand Smoke Exposure: No Advance Directives: Yes Advance Directives on File: Yes Advance Directives Date on File: 07/02/21 Do you have a plan to hurt others: No Plan service: No Current occupational status: disabled Cognitive needs: Yes (walker) Hearing needs: No Vision needs: Yes (glasses) Meds Allergies Allergy/AdvReac Type Severity Reaction Status Date / Time egg [EGG] AdvReac Intermediate DIARRHEA Verified 08/25/23 21:06 oats [OATS] AdvReac Intermediate DIARRHEA Verified 08/25/23 21:06 FROM OATMEAL Pioglitazone HCl AdvReac Intermediate edema Uncoded 08/13/23 09:54 Home Medications ?Medication ?Instructions ?Recorded ?Confirmed ?Last Taken ?Type alendronate 70 mg tablet (Fosamax) 70 mg PO SHAW 07/20/23 08/15/23 07/19/23 History ergocalciferol (vitamin D2) 1,250 1,250 mcg PO SHAW 07/20/23 08/15/23 07/19/23 History mcg (50,000 unit) capsule (Vitamin D2) cyanocobalamin (vitamin B-12) 1,000 mcg PO 3XW 08/15/23 08/15/23 Unknown History 1,000 mcg tablet (Vitamin B-12) Physical Exam Vital Signs and Narrative: Vital Signs: Last Vital Signs Temp 97.2 F 08/26/23 03:20 Pulse 60 08/26/23 03:20 Resp 13 08/26/23 03:20 BP 140/58 H 08/26/23 03:20 Pulse Ox 97 08/26/23 03:20 O2 Del Method Nasal Cannula 08/26/23 03:20 O2 Flow Rate 2 08/26/23 03:20 BMI result Body Mass Index 29.3 Elderly female lying in bed in mild distress with supplemental oxygen Neck supple, no JVD Regular rate and rhythm, S1-S2 heard Bilateral crackles appreciated, no wheezing Abdomen soft nontender, no guarding, no rigidity Patient is awake, alert and oriented to self, place, time and person ; no focal motor deficit Psych: Normal mood No pedal edema Results Labs 08/25/23 21:01 08/25/23 21:01 Labs: Laboratory Results - last 24 hr 08/25/23 08/25/23 08/25/23 21:01 22:22 22:23 MCV 75.1 L MCH 23.7 L MCHC 31.6 RDW 18.4 H Plt Count 240 MPV 9.8 Immature Gran % (Auto) 0.6 H Neut % (Auto) 81.3 H Lymph % (Auto) 9.1 L [place] % (Auto) 7.6 Eos % (Auto) 1.3 Baso % (Auto) 0.1 Lymph # (Auto) 1.3 [place] # (Auto) 1.1 Eos # (Auto) 0.2 Baso # (Auto) 0.0 Abs Immat Gran (auto) 0.09 H Absolute Neuts (auto) 11.5 H Absolute Nucleated RBC 0.000 Nucleated RBC % (auto) 0.0 VBG pH 7.56 H VBG pCO2 42 VBG pO2 69 VBG HCO3 38 H VBG O2 Saturation 97.0 VBG Base Excess 14.8 Anion Gap 13 Estim Creat Clear Calc 40.2 Estimated GFR 51 Random Glucose 232 H Lactic Acid 0.9 Calcium 9.2 Magnesium 1.0 L* Total Bilirubin 0.6 AST 25 ALT 54 H Alkaline Phosphatase 98 Troponin I High Sens 22.1 H D B-Natriuretic Peptide 289 H Total Protein 6.9 Albumin 3.4 L Urine Color Yellow Urine Appearance Clear Urine pH 5.5 Ur Specific [place] 1.010 Urine Protein Negative Urine Glucose (UA) Negative Urine Ketones Negative Urine Blood Negative Urine Nitrite Negative Ur Leukocyte Esterase Small (1+) H Urine RBC 0-2 Urine WBC 0-5 Ur Squamous Epith Cells 0-2 Urine Bacteria None Seen Hyaline Casts 0-2 COVID-19 (LUAN) COVID-19 Clin Com Influenza Type A (SANDRA) Influenza Type B (SANDRA) Influenza A & B Note 08/25/23 08/26/23 22:29 02:17 MCV MCH MCHC RDW Plt Count MPV Immature Gran % (Auto) Neut % (Auto) Lymph % (Auto) [place] % (Auto) Eos % (Auto) Baso % (Auto) Lymph # (Auto) [place] # (Auto) Eos # (Auto) Baso # (Auto) Abs Immat Gran (auto) Absolute Neuts (auto) Absolute Nucleated RBC Nucleated RBC % (auto) VBG pH VBG pCO2 VBG pO2 VBG HCO3 VBG O2 Saturation VBG Base Excess Anion Gap Estim Creat Clear Calc Estimated GFR Random Glucose Lactic Acid Calcium Magnesium Total Bilirubin AST ALT Alkaline Phosphatase Troponin I High Sens 28.2 H B-Natriuretic Peptide Total Protein Albumin Urine Color Urine Appearance Urine pH Ur Specific [place] Urine Protein Urine Glucose (UA) Urine Ketones Urine Blood Urine Nitrite Ur Leukocyte Esterase Urine RBC Urine WBC Ur Squamous Epith Cells Urine Bacteria Hyaline Casts COVID-19 (LUAN) Negative COVID-19 Clin Com See Note Influenza Type A (SANDRA) Negative Influenza Type B (SANDRA) Negative Influenza A & B Note See Note Imaging Radiologist's Impressions: Impressions Chest X-Ray 08/25/23 21:55 IMPRESSION: Pulmonary vascular congestion with interstitial edema. Abdomen/Pelvis CT 08/26/23 01:43 IMPRESSION: 1. There is consolidation at both lung bases associated with small bilateral pleural effusions. Consolidation is possibly a combination of atelectasis and/or pneumonia. 2. There is cardiomegaly. 3. There is minimal infiltrative change at the lazara hepatis which is nonspecific. 4. There is a single small gallstone. 5. Diverticulosis without diverticulitis. Fleischner guidelines were followed. Chest CT 08/26/23 01:43 IMPRESSION: 1. There is consolidation at both lung bases associated with small bilateral pleural effusions. Consolidation is possibly a combination of atelectasis and/or pneumonia. 2. There is cardiomegaly. 3. There is minimal infiltrative change at the lazara hepatis which is nonspecific. 4. There is a single small gallstone. 5. Diverticulosis without diverticulitis. Fleischner guidelines were followed. Assessment and Plan (1) Sepsis: Status: Acute (2) Pneumonia: Status: Acute (3) Hypomagnesemia: Status: Acute Plan This is a 78-year-old female with pertinent history of congestive heart failure with preserved ejection fraction, mixed hyperlipidemia, chronic hypoxemic respiratory failure on 2 L supplemental oxygen due to asthma, ibk-hgszpya-fjniqunlm diabetes mellitus, hypertension, osteoporosis who presents to the emergency department for evaluation of fever, chills and dyspnea. #. Sepsis due to bilateral pneumonia: Resuscitated with IV crystalloids. Initiating empiric IV antibiotics. Lactic acid and blood culture obtained. Sputum culture pending. #. Hypomagnesemia: Repleted. Repeat in a.m. #. Abdominal discomfort: Likely in the setting of sepsis and pneumonia. CT abdomen/pelvis without any acute abnormalities. Obtaining ultrasound of the gallbladder #. Congestive heart failure with preserved EF: No exacerbation during admission. On beta-vic and diuretics #. Hypertension: Continue home antihypertensives #. Chronic hypoxic respiratory failure due to asthma: No exacerbation during admission. Continue home inhalers. On 2 L baseline supplemental oxygen #. Iron deficiency anemia: On iron supplementation #. Mood disorder: On SSRI #. Mixed hyperlipidemia: On statin #. Akb-wcyelli-otsrisfqm diabetes mellitus with hyperglycemia: Initiating Accu-Cheks with sliding scale insulin while in the hospital Med rec pending DVT prophylaxis: Lovenox Full code. Discussed with daughter at bedside Admit as inpatient and will require two night minimum hospital stay for IV antibiotics (as above), which is not possible in a lesser acute setting. Quality Stroke Does the patient have a stroke diagnosis?: No VTE Prior VTE?: No VTE Risk Level:: Medical - moderate - high VTE Device Contraindication: Treatment Not Indicated VTE Drug Contraindication: N/A - Med Ordered
[2023-08-26] MEDS: Piperacillin Sodium/Tazobactam 4.5 GM in 0.9 % Sodium Chloride 100 ML IV ×4 (04:53→21:26)
[2023-08-26 05:25] LABS: MANUAL DIFF FLAG NO
--- NOTE | 2023-08-26 05:27 | PC.NURSE ---
Messaged Dr Strickland and he confirmed wants the 1500mg vanco not 750. D/C 750mg per order
[2023-08-26] MEDS: vancomycin HCL 1,500 MG in 0.9 % Sodium Chloride 500 ML 333.33 MG IV (05:28)
[2023-08-26 05:31] LABS: Basophils Percent Auto 0.2 % (0-2); Eosinophils Absolute Auto 0.1 X10*3/uL (0.0-0.4); Eosinophils Percent Auto 0.7 % (0-4); Imm Gran Abs Auto 0.05 X10*3/uL (0.00-0.03); Imm Gran Pct Auto 0.4 % (0.0-0.4); Lymphocytes Absolute Auto 1.4 X10*3/uL (1.2-4.9); Lymphocytes Percent Auto 12.6 % (20-40); Mean Corpuscular Hemoglobin 23.2 pg (27.0-33.0); Mean Corpuscular Volume 74.7 fL (80.0-98.0); Mean Platelet Volume 9.6 fL (9.4-12.3); Monocytes Absolute Auto 0.9 X10*3/uL (0.1-1.2); Monocytes Percent Auto 8.3 % (2-11); Neutrophils Absolute Auto 8.8 x10*3/uL (2.0-8.3); Neutrophils Percent Auto 77.8 % (45-73); Platelet Count 192 X10*3/uL (160-400); Red Blood Count 3.88 X10*6/uL (4.20-5.50); Red Cell Distribution Width 18.4 % (11.0-16.0); White Blood Count 11.3 X10*3/uL (4.8-10.8)
[2023-08-26 05:50] LABS: Anion Gap 12 (12-20); Blood Urea Nitrogen 18 mg/dL (9-16); Calcium 8.3 mg/dL (8.4-10.2); Carbon Dioxide 35 mmol/L (22-29); Chloride 94 mmol/L (96-108); Estimated Glomerular Filt Rate 48; Glucose Random 281 mg/dL (60-115); Magnesium 1.4 mg/dL (1.6-2.6); Potassium 3.6 mmol/L (3.3-5.1); Sodium 137 mmol/L (135-145)
--- NOTE | 2023-08-26 06:12 | MHC.EDTECH ---
Hourly rounds and vitals completed,pure wick was out of place,patient was incot. of a large amount of urine, favian-care given and linen changed,suction canister was emptied 600MLS of clear yellow urine. a new pure-wick placed,and patient was repositioned to comfort.call bonilla in reach
[2023-08-26] MEDS: Magnesium Sulfate/H2O 2 GM/50 ML PIGGYBACK IV (06:19)
[2023-08-26 07:12] LABS: Glucose, Whole Blood 239 mg/dL (60-115)
--- NOTE | 2023-08-26 07:24 | PHA.MEDREC ---
Pharmacy Consult ? Medication Reconciliation Pharmacy has completed the medication reconciliation. Confirmed med rec list with discharge summary list from 08/20/2023.
[2023-08-26] MEDS: Folic Acid 1 MG TABLET PO (08:09)
[2023-08-26] MEDS: Atorvastatin Calcium 80 MG TABLET PO (08:10)
[2023-08-26] MEDS: amLODIPine Besylate 10 MG TABLET PO (08:10)
[2023-08-26] MEDS: Dicyclomine HCl 10 MG CAPSULE 20 MG PO ×3 (08:12→21:25)
[2023-08-26] MEDS: Doxazosin Mesylate 2 MG TABLET PO (08:12)
[2023-08-26] MEDS: Enoxaparin Sodium 40 MG/0.4 ML SYRINGE SUBCUT (08:14)
[2023-08-26] MEDS: Insulin Lispro 100 UNIT/ML 3 ML VIAL SUBCUT ×4 (08:15→21:25)
[2023-08-26] MEDS: 0.9 % Sodium Chloride Flush 3 ML SYRINGE IVFLUSH ×3 (08:17→21:25)
[2023-08-26] MEDS: Ferrous Sulfate 324 MG TABLET.DR PO (08:37)
[2023-08-26] MEDS: Losartan Potassium 25 MG TABLET PO (08:39)
[2023-08-26] MEDS: Loratadine 10 MG TABLET PO (08:39)
[2023-08-26] MEDS: Furosemide 40 MG TABLET 80 MG PO (08:40)
[2023-08-26] MEDS: oxyBUTYnin chloride ER 5 MG TAB.ER.24 10 MG PO (08:40)
[2023-08-26] MEDS: Escitalopram Oxalate 10 MG TABLET PO (08:42)
--- NOTE | 2023-08-26 09:18 | PC.NURSE ---
Plan to recheck BP in 1 hour from social media sr strategy manager and reassess need for Metoprolol and Hydralizine per Dr Rich
--- NOTE | 2023-08-26 10:55 | PHA.PROG ---
Admission Date/Time: August 26, 2023 04:05 Indication: SEPSIS Weight in k.575 kg Adjusted body weight in Kg: Call body weight in Kg: Obesity Dosing Indication % IBW: Serum Creatinine - Last 168 Hours 08/25/23 08/26/23 21:01 05:09 Creatinine 1.04 1.10 Estimated CrCl and GFR - Last 168 Hours 08/25/23 08/26/23 21:01 05:09 Estim Creat Clear Calc 40.2 38.0 Estimated GFR 51 48 Vancomycin Loading Dose: 1500 MG Current Vancomycin Dosing Regimen: 1250 MG Q24H Vancomycin Monitoring using AUC goal of 400 - 600 range with trough as surrogate marker: INP=983 TROUGH=17.8 Date and Time for next Vancomycin Level to be drawn: 08/28/23 @0600 Pharmacist Comments on Vancomycin Plan: Due to patient's age and renal function, level is getting drawn after only 2 doses. Vancomycin dosing will take advantage of [employer]kit as a clinical decision support tool that uses Bayesian modeling to calculate individual patient's pharmacokinetic parameters and forecast the patient's drug concentration time course with the target goal AUC 24 range of 400 - 600 mg/L/hr.
[2023-08-26] MEDS: Fluticasone/Vilanterol 100/25 BLST.W.DEV 1 PUFF INHALE (11:42)
--- NOTE | 2023-08-26 11:42 | PC.NURSE ---
Pt cleaned of urine incontinence, new purewick placed and pt repositioned. Visitor at bedside. Pt denies pain. A paced on tele rate 60s, sinus. No diff breathing or SOB
--- NOTE | 2023-08-26 12:10 | PM.EVENT ---
Event Note Date of Service: 08/27/23 Event Note: Seen and evaluated Feels better Weaning down O2 as tolerated Continue IV lasix and Abx IV Mg supplement follow BMP Hold Metoprolol and Hydralazine for now, follow BP Time Spent With Patient Time: Total time managing care of this patient today ____ minutes.
[2023-08-26 12:25] LABS: Glucose, Whole Blood 238 mg/dL (60-115)
[2023-08-26 13:22] LABS: Glucose, Whole Blood 226 mg/dL (60-115)
[2023-08-26 16:25] LABS: Glucose, Whole Blood 169 mg/dL (60-115)
[2023-08-26 20:07] LABS: Glucose, Whole Blood 235 mg/dL (60-115)
[2023-08-26] MEDS: Melatonin 3 MG TABLET 6 MG PO (21:25)
[2023-08-27 04:00] VITALS: BP 138/63; PULSE 71; RESP 16; TEMP 36.1; O2SAT 93
[2023-08-27] MEDS: Piperacillin Sodium/Tazobactam 4.5 GM in 0.9 % Sodium Chloride 100 ML IV ×4 (04:18→22:01)
[2023-08-27] MEDS: Omeprazole 20 MG CAPSULE.DR PO (05:45)
--- NOTE | 2023-08-27 05:50 | PC.NURSE ---
Phlebotomy requested assistance obtaining labs this morning as patient was resistive. Lab draw explained to patient and attempted again with assistance as requested though patient moved when phlebotomy inserted needle; unable to safely obtain labs. notified.
[2023-08-27 07:19] VITALS: BP 131/60; PULSE 60; RESP 14; TEMP 36.2; O2SAT 95
[2023-08-27 07:27] LABS: Glucose, Whole Blood 192 mg/dL (60-115)
[2023-08-27 08:06] VITALS: BP 131/60; PULSE 60; O2SAT 95
[2023-08-27] MEDS: Fluticasone/Vilanterol 100/25 BLST.W.DEV 1 PUFF INHALE (08:09)
[2023-08-27 08:11] VITALS: PULSE 67; RESP 16; O2SAT 97
[2023-08-27] MEDS: Enoxaparin Sodium 40 MG/0.4 ML SYRINGE SUBCUT (08:43)
[2023-08-27] MEDS: vancomycin HCL 1,250 MG in 0.9 % Sodium Chloride 250 ML 166.67 MG IV (08:43)
[2023-08-27] MEDS: Furosemide 40 MG TABLET 80 MG PO (08:45)
[2023-08-27] MEDS: amLODIPine Besylate 10 MG TABLET PO (08:45)
[2023-08-27] MEDS: Atorvastatin Calcium 80 MG TABLET PO (08:45)
[2023-08-27] MEDS: Insulin Lispro 100 UNIT/ML 3 ML VIAL SUBCUT ×3 (08:45→16:49)
[2023-08-27] MEDS: oxyBUTYnin chloride ER 5 MG TAB.ER.24 10 MG PO (08:46)
[2023-08-27] MEDS: Cyanocobalamin (Vitamin B-12) 1,000 MCG TABLET 1000 MCG PO (08:46)
[2023-08-27] MEDS: Doxazosin Mesylate 2 MG TABLET PO (08:46)
[2023-08-27] MEDS: Dicyclomine HCl 10 MG CAPSULE 20 MG PO ×3 (08:46→20:18)
[2023-08-27] MEDS: Metoprolol Succinate ER 100 MG TAB.ER.24H PO (08:46)
[2023-08-27] MEDS: Escitalopram Oxalate 10 MG TABLET PO (08:46)
[2023-08-27] MEDS: Ferrous Sulfate 324 MG TABLET.DR PO (08:46)
[2023-08-27] MEDS: Loratadine 10 MG TABLET PO (08:47)
[2023-08-27] MEDS: Losartan Potassium 25 MG TABLET PO (08:47)
[2023-08-27] MEDS: Folic Acid 1 MG TABLET PO (08:47)
[2023-08-27] MEDS: 0.9 % Sodium Chloride Flush 3 ML SYRINGE IVFLUSH ×3 (08:49→20:18)
[2023-08-27] MEDS: Lidocaine 4 % Patch ADH..PATCH 1 PATCH TRANSDERMA (08:50)
[2023-08-27 11:17] LABS: Hematocrit 29.5 % (37.0-47.0); Hemoglobin 9.3 g/dl (12.0-16.0); Mean Corpuscular HGB Conc 31.5 g/dl (31.0-35.0); Mean Corpuscular Hemoglobin 23.8 pg (27.0-33.0); Mean Corpuscular Volume 75.4 fL (80.0-98.0); Mean Platelet Volume 10.1 fL (9.4-12.3); Platelet Count 171 X10*3/uL (160-400); Red Blood Count 3.91 X10*6/uL (4.20-5.50); Red Cell Distribution Width 18.9 % (11.0-16.0); White Blood Count 7.6 X10*3/uL (4.8-10.8)
[2023-08-27 11:33] LABS: Anion Gap 13 (12-20); Blood Urea Nitrogen 17 mg/dL (9-16); Calcium 8.3 mg/dL (8.4-10.2); Carbon Dioxide 31 mmol/L (22-29); Chloride 94 mmol/L (96-108); Creatinine Clr Calc Pharmacy 35.8; Estimated Glomerular Filt Rate 45; Potassium 3.6 mmol/L (3.3-5.1); Sodium 134 mmol/L (135-145)
[2023-08-27 11:34] LABS: Glucose, Whole Blood 343 mg/dL (60-115)
[2023-08-27 11:37] LABS: Glucose Random 362 mg/dL (60-115)
--- NOTE | 2023-08-27 13:05 | P.PNIM_ITS ---
Subjective Subjective Date of Service: 08/27/23 Interval History: Seen and evaluated this morning feels better overall still reporting RUQ pain tolerating diet Review of Systems Review of Systems: Yes all other systems are reviewed and are negative Physical Exam 2 Vital Signs: Vital Signs: Last Vital Signs Temp 97.1 F 08/27/23 07:19 Pulse 67 08/27/23 08:11 Resp 16 08/27/23 08:11 BP 131/60 08/27/23 08:06 Pulse Ox 95 08/27/23 08:06 O2 Del Method Nasal Cannula 08/27/23 07:19 O2 Flow Rate 2 08/27/23 07:19 BMI result Body Mass Index 28.8 Const: Other: Constitutional : Awake, interactive, not in distress Neck : Normal inspection, Supple Cardiovascular : RRR, no JVP, no lower extremity edema Respiratory : good bilateral air entry, basal fine crackles, on O2 supplement Gastrointestinal: soft, lax, Normal bowel sounds, mild RUQ tenderness, no rebound Skin : Warm, Dry Neurological : Alert & oriented x3, No focal deficit Objective Data Active Medications Acetaminophen (Acetaminophen 325 Mg Tablet) 650 mg PO Q6H PRN PRN Reason: Pain, Mild (Pain Scale 1-3), fever or headache Albuterol Sulfate (Albuterol Sulfate 90 Mcg 8 Gm Inhaler) 2 puff INHALE Q6H PRN PRN Reason: bronchospasm Amlodipine Besylate (Amlodipine Besylate 10 Mg Tablet) 10 mg PO DAILY [facility]; Protocol Last Admin: 08/27/23 08:45 Dose: 10 mg Documented By: AVANI Atorvastatin Calcium (Atorvastatin Calcium 80 Mg Tablet) 80 mg PO DAILY [facility] Last Admin: 08/27/23 08:45 Dose: 80 mg Documented By: AVANI Benzonatate (Benzonatate 100 Mg Capsule) 100 mg PO TID PRN PRN Reason: Cough Calcium Carbonate (Calcium Carbonate 750 Mg Tab.Chew) 750 mg PO Q4H PRN PRN Reason: Heartburn Cyanocobalamin (Cyanocobalamin (Vitamin B-12) 1,000 Mcg Tablet) 1,000 mcg PO MOWEFR@0900 [facility] Last Admin: 08/27/23 08:46 Dose: 1,000 mcg Documented By: AVANI Dicyclomine HCl (Dicyclomine Hcl 10 Mg Capsule) 20 mg PO TID [facility] Last Admin: 08/27/23 08:46 Dose: 10 mg Documented By: AVANI Doxazosin Mesylate (Doxazosin Mesylate 2 Mg Tablet) 2 mg PO DAILY [facility]; Protocol Last Admin: 08/27/23 08:46 Dose: 2 mg Documented By: AVANI Enoxaparin Sodium (Enoxaparin Sodium 40 Mg/0.4 Ml Syringe) 40 mg SUBCUT Q24H [facility] Last Admin: 08/27/23 08:43 Dose: 40 mg Documented By: AVANI Ergocalciferol (Ergocalciferol (Vitamin D2) 1,250 Mcg Capsule) 1,250 mcg PO SHAW@0900 [facility] Escitalopram Oxalate (Escitalopram Oxalate 10 Mg Tablet) 10 mg PO DAILY [facility] Last Admin: 08/27/23 08:46 Dose: 10 mg Documented By: AVANI Ferrous Sulfate (Ferrous Sulfate 324 Mg Tablet.Dr) 324 mg PO DAILY [facility] Last Admin: 08/27/23 08:46 Dose: 324 mg Documented By: AVANI Fluticasone/Vilanterol (Fluticasone/Vilanterol 100/25 Blst.W.Dev) 1 puff INHALE RDAILY [facility] Last Admin: 08/27/23 08:09 Dose: 1 puff Documented By: TESSIE Folic Acid (Folic Acid 1 Mg Tablet) 1 mg PO DAILY [facility] Last Admin: 08/27/23 08:47 Dose: 1 mg Documented By: AVANI Furosemide (Furosemide 40 Mg Tablet) 80 mg PO DAILY [facility]; Protocol Last Admin: 08/27/23 08:45 Dose: 80 mg Documented By: AVANI Glucose (Glucose Gel 15 Gm Gel..Gram.) 15 gm PO Q15M PRN; Protocol PRN Reason: per Hypoglycemia Standing Ord. Hydrocortisone (Hydrocortisone 1 % Cream 28.35 Gm Tube) 1 appl TOPICAL BID PRN; Protocol PRN Reason: skin irritation Piperacillin Sod/Tazobactam (Sod 4.5 gm/ Sodium Chloride) 100 mls @ 200 mls/hr IV Q6H [facility] Last Infusion: 08/27/23 11:23 Dose: Infused Documented By: AVANI Dextrose (D10) 250 mls @ 750 mls/hr IV Q15M PRN; Protocol PRN Reason: per Hypoglycemia Standing Ord. Vancomycin HCl 1,250 mg/ (Sodium Chloride) 250 mls @ 166.667 mls/hr IV Q24H [facility] Last Infusion: 08/27/23 10:33 Dose: Infused Documented By: AVANI Insulin Human Lispro (Insulin Lispro 100 Unit/Ml 3 Ml Vial) 0 unit SUBCUT QIDACHS [facility]; Protocol Last Admin: 08/27/23 11:34 Dose: 8 unit Documented By: AVANI Lidocaine (Lidocaine 4 % Patch Adh..Patch) 1 patch TRANSDERMA DAILY [facility] Last Admin: 08/27/23 08:50 Dose: 1 patch Documented By: AVANI Loratadine (Loratadine 10 Mg Tablet) 10 mg PO DAILY [facility] Last Admin: 08/27/23 08:47 Dose: 10 mg Documented By: AVANI Losartan Potassium (Losartan Potassium 25 Mg Tablet) 25 mg PO DAILY [facility]; Protocol Last Admin: 08/27/23 08:47 Dose: 25 mg Documented By: AVANI Magnesium Hydroxide (Milk Of Magnesia 30 Ml Oral.Susp) 30 ml PO DAILY PRN PRN Reason: Constipation Meclizine HCl (Meclizine Hcl 25 Mg Tablet) 25 mg PO TID PRN PRN Reason: dizziness Melatonin (Melatonin 3 Mg Tablet) 6 mg PO BEDTIME PRN PRN Reason: Insomnia Last Admin: 08/26/23 21:25 Dose: 6 mg Documented By: TIFFANIE Metoprolol Succinate (Metoprolol Succinate Er 100 Mg Tab.Er.24h) 100 mg PO DAILY [facility]; Protocol Last Admin: 08/27/23 08:46 Dose: 100 mg Documented By: AVANI Omeprazole (Omeprazole 20 Mg Capsule.) 20 mg PO DAILY@0630 [facility] Last Admin: 08/27/23 05:45 Dose: 20 mg Documented By: TIFFANIE Oxybutynin Chloride (Oxybutynin Chloride Er 5 Mg Tab.Er.24) 10 mg PO DAILY [facility] Last Admin: 08/27/23 08:46 Dose: 10 mg Documented By: AVANI Pharmacy Consult (Consult Rx Vancomycin Dosing) 1 each MISCELLANE DAILY PRN PRN Reason: Consult order Promethazine HCl (Promethazine Hcl 25 Mg Tablet) 25 mg PO TID PRN PRN Reason: nausea and vomiting Sodium Chloride (0.9 % Sodium Chloride Flush 3 Ml Syringe) 3 ml IVFLUSH QSHIFT [facility] Last Admin: 08/27/23 08:49 Dose: 3 ml Documented By: AVANI Labs 08/27/23 10:55 08/27/23 10:55 Labs: Laboratory Results - last 24 hr 08/26/23 08/26/23 08/26/23 13:18 16:18 20:01 MCV MCH MCHC RDW Plt Count MPV Absolute Nucleated RBC Nucleated RBC % (auto) Anion Gap Estim Creat Clear Calc Estimated GFR POC Glucose 226 H 169 H 235 H Random Glucose Calcium 08/27/23 08/27/23 08/27/23 07:23 10:55 11:29 MCV 75.4 L MCH 23.8 L MCHC 31.5 RDW 18.9 H Plt Count 171 MPV 10.1 Absolute Nucleated RBC 0.000 Nucleated RBC % (auto) 0.0 Anion Gap 13 Estim Creat Clear Calc 35.8 Estimated GFR 45 POC Glucose 192 H 343 H Random Glucose 362 H* Calcium 8.3 L Microbiology Microbiology Results: Microbiology 08/25/23 Unknown Urine Culture - Final Urine Catheterized - Swann Catheter No growth. 08/25/23 22:22 Blood Culture - Preliminary Blood - Venous No growth after 24 hours. 08/25/23 22:22 Blood Culture - Preliminary Blood - Venous No growth after 24 hours. Assessment and Plan (1) Pleural effusion: Status: Acute (2) Pneumonia: Status: Acute (3) Hypomagnesemia: Status: Acute (4) Sepsis: Status: Acute Plan This is a 78-year-old female with pertinent history of congestive heart failure with preserved ejection fraction, mixed hyperlipidemia, chronic hypoxemic respiratory failure on 2 L supplemental oxygen due to asthma, lhz-tslrxcb-yctvynwed diabetes mellitus, hypertension, osteoporosis who presents to the emergency department for evaluation of fever, chills and dyspnea. # Sepsis due to bilateral pneumonia sepsis resolved Pending cultures Continue IV antibiotics Wean O2 down as tolerated follow Vancomycin trough # Ihz-nrkxmha-qrxgjqeec diabetes mellitus with hyperglycemia restart Metformin sliding scale insulin while in the hospital check A1c # Hypomagnesemia, Repleted. Repeat # Abnormal GB imaging with RUQ pain CT abdomen/pelvis without any acute abnormalities ultrasound of the gallbladder mild wall thickness and echogenicity surgery to eval # Congestive heart failure with preserved EF: No exacerbation during admission. On beta-vic and diuretics # Hypertension: Continue home antihypertensives # Chronic hypoxic respiratory failure due to asthma: No exacerbation during admission. Continue home inhalers. On 2 L baseline supplemental oxygen # Iron deficiency anemia: On iron supplementation # Mood disorder: On SSRI # Mixed hyperlipidemia: On statin Med rec pending DVT prophylaxis: Lovenox Admit as inpatient and will require overnight hospital stay for IV antibiotics (as above), which is not possible in a lesser acute setting. Quality Stroke Does the patient have a stroke diagnosis?: No VTE Prior VTE?: No VTE Risk Level:: Medical - moderate - high VTE Device Contraindication: Treatment Not Indicated VTE Drug Contraindication: N/A - Med Ordered
[2023-08-27 13:33] LABS: Magnesium 1.5 mg/dL (1.6-2.6)
[2023-08-27] MEDS: metFORMIN HCl ER 500 MG TAB.ER.24H 1000 MG PO ×2 (13:35→20:18)
[2023-08-27 13:45] LABS: Estimated Average Glucose 169 mg/dL; Hemoglobin A1c % 7.5 % (<6.0)
--- NOTE | 2023-08-27 13:46 | PM.CNGS ---
History of Present Illness Consult details Consult date: 08/27/23 Reason for consult: gallstones Requesting physician: Dave Rich Narrative: 78-year-old female patient noted to have abdominal pain in the right upper quadrant found on workup to have gallstones within the gallbladder. Her past history is significant for congestive heart failure with preserved ejection fraction, mixed hyperlipidemia, chronic hypoxemia respiratory failure on 2 L supplemental oxygen secondary to asthma, type 2 diabetes, hypertension, osteoporosis. She initially presented to the emergency department yesterday for fever, chills and shortness of breath. She has admitted to the hospitalist service for further management. She reports intermittent abdominal discomfort in the upper abdomen. Workup with laboratories revealed a minimally elevated ALT but normal bilirubin and AST. WBC is normal. Ultrasound of the abdomen revealed a contracted gallbladder with a single stone. The wall is thickened but this may be due to the contracted gallbladder. No pericholecystic fluid is identified. The patient was not tender on palpation of the gallbladder (negative sonographic Carnes sign). Review of Systems Review of Systems: Yes all other systems are reviewed and are negative PMFSH Past Medical History Medical History Acute on chronic heart failure with preserved ejection fraction (HFpEF) Acute on chronic combined systolic (congestive) and diastolic (congestive) heart failure Acute hypoxemic respiratory failure Acute on chronic diastolic (congestive) heart failure Hearing loss CHF (congestive heart failure) Iron deficiency anemia Left hemiparesis Cardiac pacemaker in situ Diastolic dysfunction Ear discomfort Otitis media Moderate asthma Pure hypercholesterolemia Osteoporosis B12 deficiency Gallstones GERD (gastroesophageal reflux disease) Hypovitaminosis D History of stroke Diabetes mellitus Essential hypertension Family History Family History Father No problems noted. Mother No problems noted. Surgical History Surgical History History of pacemaker Social History Social History Household Members: Family Housing: House Housing Other:: lives with daughter Are you a primary care management assistant to a significant other at home: No Do you presently have visiting nurse or other home services: Yes (PT and Nursing) Alcohol intake: never Patient Tobacco Use Status: Former Tobacco user Tobacco use type: Cigarette e-Cigarette/Vaping Use: Never Used Second Hand Smoke Exposure: No Advance Directives Date on File: 07/02/21 service: No Current occupational status: disabled Cognitive needs: Yes (walker) Hearing needs: No Vision needs: Yes (glasses) Meds Allergies Allergy/AdvReac Type Severity Reaction Status Date / Time egg [EGG] AdvReac Intermediate DIARRHEA Verified 08/25/23 21:06 oats [OATS] AdvReac Intermediate DIARRHEA Verified 08/25/23 21:06 FROM OATMEAL Pioglitazone HCl AdvReac Intermediate edema Uncoded 08/13/23 09:54 Active Medications: Current Medications Acetaminophen (Acetaminophen 325 Mg Tablet) 650 mg PO Q6H PRN PRN Reason: Pain, Mild (Pain Scale 1-3), fever or headache Albuterol Sulfate (Albuterol Sulfate 90 Mcg 8 Gm Inhaler) 2 puff INHALE Q6H PRN PRN Reason: bronchospasm Amlodipine Besylate (Amlodipine Besylate 10 Mg Tablet) 10 mg PO DAILY [facility]; Protocol Last Admin: 08/27/23 08:45 Dose: 10 mg Atorvastatin Calcium (Atorvastatin Calcium 80 Mg Tablet) 80 mg PO DAILY [facility] Last Admin: 08/27/23 08:45 Dose: 80 mg Benzonatate (Benzonatate 100 Mg Capsule) 100 mg PO TID PRN PRN Reason: Cough Calcium Carbonate (Calcium Carbonate 750 Mg Tab.Chew) 750 mg PO Q4H PRN PRN Reason: Heartburn Cyanocobalamin (Cyanocobalamin (Vitamin B-12) 1,000 Mcg Tablet) 1,000 mcg PO MOWEFR@0900 [facility] Last Admin: 08/27/23 08:46 Dose: 1,000 mcg Dicyclomine HCl (Dicyclomine Hcl 10 Mg Capsule) 20 mg PO TID [facility] Last Admin: 08/27/23 08:46 Dose: 10 mg Doxazosin Mesylate (Doxazosin Mesylate 2 Mg Tablet) 2 mg PO DAILY [facility]; Protocol Last Admin: 08/27/23 08:46 Dose: 2 mg Enoxaparin Sodium (Enoxaparin Sodium 40 Mg/0.4 Ml Syringe) 40 mg SUBCUT Q24H [facility] Last Admin: 08/27/23 08:43 Dose: 40 mg Ergocalciferol (Ergocalciferol (Vitamin D2) 1,250 Mcg Capsule) 1,250 mcg PO SHAW@0900 [facility] Escitalopram Oxalate (Escitalopram Oxalate 10 Mg Tablet) 10 mg PO DAILY [facility] Last Admin: 08/27/23 08:46 Dose: 10 mg Ferrous Sulfate (Ferrous Sulfate 324 Mg Tablet.Dr) 324 mg PO DAILY [facility] Last Admin: 08/27/23 08:46 Dose: 324 mg Fluticasone/Vilanterol (Fluticasone/Vilanterol 100/25 Blst.W.Dev) 1 puff INHALE RDAILY [facility] Last Admin: 08/27/23 08:09 Dose: 1 puff Folic Acid (Folic Acid 1 Mg Tablet) 1 mg PO DAILY [facility] Last Admin: 08/27/23 08:47 Dose: 1 mg Furosemide (Furosemide 40 Mg Tablet) 80 mg PO DAILY [facility]; Protocol Last Admin: 08/27/23 08:45 Dose: 80 mg Glucose (Glucose Gel 15 Gm Gel..Gram.) 15 gm PO Q15M PRN; Protocol PRN Reason: per Hypoglycemia Standing Ord. Hydrocortisone (Hydrocortisone 1 % Cream 28.35 Gm Tube) 1 appl TOPICAL BID PRN; Protocol PRN Reason: skin irritation Piperacillin Sod/Tazobactam (Sod 4.5 gm/ Sodium Chloride) 100 mls @ 200 mls/hr IV Q6H [facility] Last Infusion: 08/27/23 11:23 Dose: Infused Dextrose (D10) 250 mls @ 750 mls/hr IV Q15M PRN; Protocol PRN Reason: per Hypoglycemia Standing Ord. Vancomycin HCl 1,250 mg/ (Sodium Chloride) 250 mls @ 166.667 mls/hr IV Q24H [facility] Last Infusion: 08/27/23 10:33 Dose: Infused Insulin Human Lispro (Insulin Lispro 100 Unit/Ml 3 Ml Vial) 0 unit SUBCUT QIDACHS [facility]; Protocol Last Admin: 08/27/23 11:34 Dose: 8 unit Lidocaine (Lidocaine 4 % Patch Adh..Patch) 1 patch TRANSDERMA DAILY [facility] Last Admin: 08/27/23 08:50 Dose: 1 patch Loratadine (Loratadine 10 Mg Tablet) 10 mg PO DAILY [facility] Last Admin: 08/27/23 08:47 Dose: 10 mg Losartan Potassium (Losartan Potassium 25 Mg Tablet) 25 mg PO DAILY [facility]; Protocol Last Admin: 08/27/23 08:47 Dose: 25 mg Magnesium Hydroxide (Milk Of Magnesia 30 Ml Oral.Susp) 30 ml PO DAILY PRN PRN Reason: Constipation Meclizine HCl (Meclizine Hcl 25 Mg Tablet) 25 mg PO TID PRN PRN Reason: dizziness Melatonin (Melatonin 3 Mg Tablet) 6 mg PO BEDTIME PRN PRN Reason: Insomnia Last Admin: 08/26/23 21:25 Dose: 6 mg Metformin HCl (Metformin Hcl Er 500 Mg Tab.Er.24h) 1,000 mg PO BEDTIME [facility] Last Admin: 08/27/23 13:35 Dose: 1,000 mg Metoprolol Succinate (Metoprolol Succinate Er 100 Mg Tab.Er.24h) 100 mg PO DAILY [facility]; Protocol Last Admin: 08/27/23 08:46 Dose: 100 mg Omeprazole (Omeprazole 20 Mg Capsule.Dr) 20 mg PO DAILY@629 [facility] Last Admin: 08/27/23 05:45 Dose: 20 mg Oxybutynin Chloride (Oxybutynin Chloride Er 5 Mg Tab.Er.24) 10 mg PO DAILY [facility] Last Admin: 08/27/23 08:46 Dose: 10 mg Pharmacy Consult (Consult Rx Vancomycin Dosing) 1 each MISCELLANE DAILY PRN PRN Reason: Consult order Promethazine HCl (Promethazine Hcl 25 Mg Tablet) 25 mg PO TID PRN PRN Reason: nausea and vomiting Sodium Chloride (0.9 % Sodium Chloride Flush 3 Ml Syringe) 3 ml IVFLUSH QSTHE [facility] Last Admin: 08/27/23 08:49 Dose: 3 ml Home Medications ?Medication ?Instructions ?Recorded ?Confirmed ?Last Taken ?Type alendronate 70 mg tablet (Fosamax) 70 mg PO SHAW@89907/20/23 08/26/23 07/19/23 History ergocalciferol (vitamin D2) 1,250 1,250 mcg PO SHAW@89907/20/23 08/26/23 07/19/23 History mcg (50,000 unit) capsule (Vitamin D2) cyanocobalamin (vitamin B-12) 1,000 mcg PO MOWEFR@89908/15/23 08/26/23 Unknown History 1,000 mcg tablet (Vitamin B-12) omeprazole 20 mg capsule,delayed 20 mg PO DAILY@62908/26/23 08/26/23 Unknown History release Physical Exam Vital Signs: Vital Signs: Last Vital Signs Temp 97.1 F 08/27/23 07:19 Pulse 67 08/27/23 08:11 Resp 16 08/27/23 08:11 BP 131/60 08/27/23 08:06 Pulse Ox 95 08/27/23 08:06 O2 Del Method Nasal Cannula 08/27/23 07:19 O2 Flow Rate 2 08/27/23 07:19 BMI result Body Mass Index 28.8 HEENT: Head: Yes normocephalic and Yes atraumatic Resp: Effort & Inspection: normal respiratory effort GI: Inspection: Yes normal to inspection Palpation (GI): Soft to palpation, nontender, no guarding, not rigid and No hepatosplenomegaly present Percussion: Yes normal to percussion Auscultation: normal bowel sounds Skin: Other: No jaundice General skin exam: no rashes or lesions noted Results Labs 08/27/23 10:55 08/27/23 10:55 Labs: Abnormal lab results 08/26/23 08/26/23 08/27/23 Range/Units 16:18 20:01 07:23 RBC (4.20-5.50) X10*6/uL Hgb (12.0-16.0) g/dl Hct (37.0-47.0) % MCV (80.0-98.0) fL MCH (27.0-33.0) pg RDW (11.0-16.0) % Sodium (135-145) mmol/L Chloride (96-108) mmol/L Carbon Dioxide (22-29) mmol/L BUN (9-16) mg/dL POC Glucose 169 H 235 H 192 H (60-115) mg/dL Random Glucose (60-115) mg/dL Hemoglobin A1c % (<6.0) % Calcium (8.4-10.2) mg/dL Magnesium (1.6-2.6) mg/dL 08/27/23 08/27/23 Range/Units 10:55 11:29 RBC 3.91 L (4.20-5.50) X10*6/uL Hgb 9.3 L (12.0-16.0) g/dl Hct 29.5 L (37.0-47.0) % MCV 75.4 L (80.0-98.0) fL MCH 23.8 L (27.0-33.0) pg RDW 18.9 H (11.0-16.0) % Sodium 134 L (135-145) mmol/L Chloride 94 L (96-108) mmol/L Carbon Dioxide 31 H (22-29) mmol/L BUN 17 H (9-16) mg/dL POC Glucose 343 H (60-115) mg/dL Random Glucose 362 H* (60-115) mg/dL Hemoglobin A1c % 7.5 H (<6.0) % Calcium 8.3 L (8.4-10.2) mg/dL Magnesium 1.5 L (1.6-2.6) mg/dL Short CBC 08/27/23 Range/Units 10:55 WBC 7.6 (4.8-10.8) X10*3/uL Hgb 9.3 L (12.0-16.0) g/dl Hct 29.5 L (37.0-47.0) % Plt Count 171 (160-400) X10*3/uL BMP 08/27/23 10:55 Sodium 134 L Potassium 3.6 Chloride 94 L Carbon Dioxide 31 H BUN 17 H Creatinine 1.16 Calcium 8.3 L Urine 08/25/23 Range/Units 22:22 Urine Color Yellow Urine Appearance Clear Urine pH 5.5 (5.0-9.0) Ur Specific [place] 1.010 (1.005-1.025) Urine Protein Negative (Neg-Trace) mg/dL Urine Glucose (UA) Negative (Negative) mg/dL All other labs normal. Imaging Abdomen CT scan report/results: image reviewed CT scan - pelvis: image reviewed Abdominal ultrasound report/results: image reviewed Assessment and Plan (1) Gallstones: Status: Acute Plan 78-year-old female patient with multiple medical problems presenting with complaints of abdominal pain in the right upper quadrant. Workup revealed normal LFTs and WBC. Ultrasound reveals a gallstone within the gallbladder but no secondary evidence of acute cholecystitis. Examination today reveals her abdomen to be soft with a negative Carnes sign. I would suggest observation at this point given her multiple medical problems, respiratory status. A HIDA scan could be added if there is still concern regarding acute cholecystitis. Procedures Date of Service Date of Service: 08/27/23
--- NOTE | 2023-08-27 14:33 | MHC.CM.PN ---
CM MET WITH PT AND DAUGHTER AT BEDSIDE PT LIVES WITH DAUGHTER WHO IS ONE OF HER TWO SECURITY DISPATCHER SHE HAS DAILY [facility]IST SERVICES AND VNA 3X PER WEEK WITH COMFORT PLUS VNA PT USES A CANE, WALKER AND OXYGEN AT HOME SHE HAS A HCP ON FILE PCP: VIJAY HIGHTOWER DELIVERED DCP: [facility]SP[facility]
[2023-08-27 15:33] VITALS: BP 136/65; PULSE 60; RESP 13; TEMP 36.3; O2SAT 95
[2023-08-27 16:06] LABS: Glucose, Whole Blood 158 mg/dL (60-115)
[2023-08-27] MEDS: Magnesium Sulfate/H2O 2 GM/50 ML PIGGYBACK IV (17:30)
[2023-08-27 19:55] VITALS: BP 128/60; PULSE 76; RESP 14; TEMP 36.4; O2SAT 94
[2023-08-27 20:14] LABS: Glucose, Whole Blood 117 mg/dL (60-115)
[2023-08-28 03:17] VITALS: BP 138/66; PULSE 63; RESP 18; TEMP 36.6; O2SAT 95
[2023-08-28] MEDS: Piperacillin Sodium/Tazobactam 4.5 GM in 0.9 % Sodium Chloride 100 ML IV (04:00)
[2023-08-28] MEDS: Omeprazole 20 MG CAPSULE.DR PO (05:47)
[2023-08-28 07:19] LABS: Vancomycin Random 12.6 mcg/mL (15-20)
[2023-08-28 07:34] LABS: Anion Gap 15 (12-20); Blood Urea Nitrogen 18 mg/dL (9-16); Calcium 8.6 mg/dL (8.4-10.2); Carbon Dioxide 34 mmol/L (22-29); Chloride 93 mmol/L (96-108); Creatinine Clr Calc Pharmacy 32.4; Estimated Glomerular Filt Rate 40; Glucose Random 130 mg/dL (60-115); Potassium 3.4 mmol/L (3.3-5.1); Sodium 139 mmol/L (135-145)
[2023-08-28 07:35] VITALS: BP 152/68; PULSE 60; RESP 18; TEMP 36.1; O2SAT 99
[2023-08-28] MEDS: Fluticasone/Vilanterol 100/25 BLST.W.DEV 1 PUFF INHALE (07:38)
[2023-08-28 07:39] VITALS: PULSE 60; RESP 18; O2SAT 98
--- NOTE | 2023-08-28 07:40 | HE.PHANOTE ---
RE VANCO DOSING REDUCING DOSE TO 1000 MG Q24 HOUR DUE TO DECLINING RENAL FUNCTION. SHOULD BE SEEING TROUGH OF 13.2 BEFORE 4TH DOSE. CONTINUE DAILY RENAL FUNCTION MONITORING AND CLOSE MONITORING OF VANCOMYCIN LEVELS FOR THIS PATIENT.
[2023-08-28 07:45] LABS: Creatinine Clr Calc Pharmacy 32.1; Estimated Glomerular Filt Rate 40; Magnesium 1.8 mg/dL (1.6-2.6)
[2023-08-28 07:46] LABS: Glucose, Whole Blood 141 mg/dL (60-115)
[2023-08-28] MEDS: vancomycin HCL 1,000 MG in 0.9 % Sodium Chloride 250 ML 270 MG IV (08:00)
[2023-08-28] MEDS: 0.9 % Sodium Chloride Flush 3 ML SYRINGE IVFLUSH (08:01)
[2023-08-28] MEDS: Enoxaparin Sodium 40 MG/0.4 ML SYRINGE SUBCUT (08:54)
[2023-08-28] MEDS: Lidocaine 4 % Patch ADH..PATCH 1 PATCH TRANSDERMA (08:54)
[2023-08-28] MEDS: Furosemide 40 MG TABLET 80 MG PO (08:54)
[2023-08-28] MEDS: Doxazosin Mesylate 2 MG TABLET PO (08:54)
[2023-08-28] MEDS: Folic Acid 1 MG TABLET PO (08:55)
[2023-08-28] MEDS: Ferrous Sulfate 324 MG TABLET.DR PO (08:55)
[2023-08-28] MEDS: Atorvastatin Calcium 80 MG TABLET PO (08:55)
[2023-08-28] MEDS: Metoprolol Succinate ER 100 MG TAB.ER.24H PO (08:55)
[2023-08-28] MEDS: amLODIPine Besylate 10 MG TABLET PO (08:55)
[2023-08-28] MEDS: oxyBUTYnin chloride ER 5 MG TAB.ER.24 10 MG PO (08:55)
[2023-08-28] MEDS: Dicyclomine HCl 10 MG CAPSULE 20 MG PO (08:55)
[2023-08-28] MEDS: Escitalopram Oxalate 10 MG TABLET PO (08:56)
[2023-08-28] MEDS: Loratadine 10 MG TABLET PO (08:56)
[2023-08-28] MEDS: Losartan Potassium 25 MG TABLET PO (08:56)
--- NOTE | 2023-08-28 09:33 | P.DS_ITS ---
DS: Providers Provider Date of Service: 08/28/23 Date of admission: 08/26/23 04:05 Primary care physician: Yoselyn Millan MD Consults: 08/27/23 07:25 Consult to General Surgery Routine Consulting Provider: [facility] [place] General Surgeons Reason for consultation: RUQ pain and tenderness, Abnormal US GB DS: Diagnosis Discharge Diagnosis (1) Gallstones: Status: Acute (2) Pneumonia: Status: Acute (3) CHF exacerbation: Status: Acute (4) Hypomagnesemia: Status: Acute (5) Sepsis: Status: Acute DS: Summary Hospital Course Hospital Course: Admission note HPI This is a 78-year-old female with pertinent history of congestive heart failure with preserved ejection fraction, mixed hyperlipidemia, chronic hypoxemic respiratory failure on 2 L supplemental oxygen due to asthma, [id number] diabetes mellitus, hypertension, osteoporosis who presents to the emergency department for evaluation of fever, chills and dyspnea. Of note, patient was recently admitted with CHF + COPD exacerbation and discharged on 08/19 with p.o. steroids and p.o. doxycycline. History obtained with the help of iap displays analyst. Patient states that symptoms started 3 days prior to presentation. Patient has been having dyspnea which is worse with exertion. No orthopnea or PND. No wheezing. Also has been having productive cough with yellowish sputum production. Also endorses fevers and chills. Had 1 episode of nonbloody emesis. Also complaining of generalized abdominal discomfort. No chest discomfort, palpitations, changes in urinary or bowel habits. In the emergency department, patient was found to be septic. WBC found to be e levated and imaging concerning for pneumonia. Hospital course # Sepsis due to bilateral pneumonia chest CT scan was suggestive of pneumonia as she was started on broad spectrum antibiotics of Vancomycin and Zosyn with good response over the course of hospital stay as her blood cultures remained negative and she was weaned down to her home dose of 2L O2 supplement. She will continue Augmentin for 5 more days upon discharge. # Odi-kldfjar-gphdghbih diabetes mellitus with hyperglycemia better controlled after restarting Metformin. sliding scale insulin while in the hospital as HbA1c of 7.6 which is kind of acceptable in her age. to follow with PCP. # Hypomagnesemia, Repleted with IV supplement with good response. # Abnormal GB imaging with RUQ pain CT abdomen/pelvis without any acute abnormalities but ultrasound of the gallbladder showed contracted GB with possible stone and mild wall thickness. Evaluated by surgery who recommended no intervention at this point and to follow up as outpatient if recurrent pain for HIDA scan. patient and daughter understand the plan and agree with it. Discharge plan Continue Antibiotics for 5 more days Tessalon as needed for cough Follow with dr Bueno as outpatient if continues to have abdominal pain after finishing the treatment Low fat diet , low sodium diet Time Attestation Discharge Coordination Time (in mins): 37 Quality: Safe Use of Opioids Does Pt have an Active Cancer Diagnosis on the Problem List?: No Quality: Stroke Does the patient have a stroke diagnosis?: No Physical Exam Vital Signs: Vital Signs: Last Vital Signs Temp 96.9 F 08/28/23 07:35 Pulse 60 08/28/23 07:39 Resp 18 08/28/23 07:39 BP 152/68 H 08/28/23 07:35 Pulse Ox 99 08/28/23 07:35 O2 Del Method Nasal Cannula 08/28/23 07:35 O2 Flow Rate 2 08/28/23 07:35 BMI result Body Mass Index 28.8 Const: Other: Constitutional : Awake, interactive, not in distress Neck : Normal inspection, Supple Cardiovascular : RRR, no JVP, no lower extremity edema Respiratory : good bilateral air entry, no crackles, on 2LO2 supplement Gastrointestinal: soft, lax, Normal bowel sounds, no tenderness, no rebound Skin : Warm, Dry Neurological : Alert & oriented x3, No focal deficit DS: Data Data Completed and Pending Labs on day of discharge: Laboratory Results - last 24 hr 08/27/23 08/27/23 08/27/23 10:55 11:29 16:02 WBC 7.6 RBC 3.91 L Hgb 9.3 L Hct 29.5 L MCV 75.4 L MCH 23.8 L MCHC 31.5 RDW 18.9 H Plt Count 171 MPV 10.1 Absolute Nucleated RBC 0.000 Nucleated RBC % (auto) 0.0 Sodium 134 L Potassium 3.6 Chloride 94 L Carbon Dioxide 31 H Anion Gap 13 BUN 17 H Creatinine 1.16 Estim Creat Clear Calc 35.8 Estimated GFR 45 POC Glucose 343 H 158 H Random Glucose 362 H* Estimat Average Glucose 169 Hemoglobin A1c % 7.5 H Calcium 8.3 L Magnesium 1.5 L Random Vancomycin 06/08/28/23 08/28/23 20:06 06:09 06:09 WBC RBC Hgb Hct MCV MCH MCHC RDW Plt Count MPV Absolute Nucleated RBC Nucleated RBC % (auto) Sodium 139 Potassium 3.4 Chloride 93 L Carbon Dioxide 34 H Anion Gap 15 BUN 18 H Creatinine 1.28 1.29 Estim Creat Clear Calc 32.4 Estimated GFR POC Glucose 117 H Random Glucose Estimat Average Glucose Hemoglobin A1c % Calcium Magnesium Random Vancomycin 08/28/23 08/28/23 08/28/23 06:09 06:09 07:40 WBC RBC Hgb Hct MCV MCH MCHC RDW Plt Count MPV Absolute Nucleated RBC Nucleated RBC % (auto) Sodium Potassium Chloride Carbon Dioxide Anion Gap BUN Creatinine Estim Creat Clear Calc 32.1 Estimated GFR 40 40 POC Glucose 141 H Random Glucose 130 H Estimat Average Glucose Hemoglobin A1c % Calcium 8.6 Magnesium 1.8 Random Vancomycin 12.6 L Preliminary micro results at discharge 08/25/23 22:22 Blood Culture - Preliminary Blood - Venous No growth after 48 hours. 08/25/23 22:22 Blood Culture - Preliminary Blood - Venous No growth after 48 hours. Imaging Chest x-ray: Radiologist's impression: ITS Impressions Chest X-Ray 08/25/23 21:55 IMPRESSION: Pulmonary vascular congestion with interstitial edema. Abdomen/Pelvis CT 08/26/23 01:43 IMPRESSION: 1. There is consolidation at both lung bases associated with small bilateral pleural effusions. Consolidation is possibly a combination of atelectasis and/or pneumonia. 2. There is cardiomegaly. 3. There is minimal infiltrative change at the lazara hepatis which is nonspecific. 4. There is a single small gallstone. 5. Diverticulosis without diverticulitis. Fleischner guidelines were followed. Chest CT 08/26/23 01:43 IMPRESSION: 1. There is consolidation at both lung bases associated with small bilateral pleural effusions. Consolidation is possibly a combination of atelectasis and/or pneumonia. 2. There is cardiomegaly. 3. There is minimal infiltrative change at the lazara hepatis which is nonspecific. 4. There is a single small gallstone. 5. Diverticulosis without diverticulitis. Fleischner guidelines were followed. Abdomen Ultrasound 08/26/23 07:22 IMPRESSION: *Single 4 mm echogenic focus within the gallbladder lumen suspicious for a single gallstone. A gallbladder wall polyp could have a similar appearance. Of note, the gallbladder is partially contracted during the examination resulting in suboptimal visualization of the gallbladder. As clinically indicated, consider further sonographic evaluation when the gallbladder may be more physiologically distended. *Gallbladder wall thickness measures 9 mm in width though the gallbladder is partially contracted. This gallbladder wall this may represent physiologic contraction of the gallbladder or gallbladder wall inflammatory changes. As noted above, images are obtained during partial contraction of the gallbladder. Findings are most suspicious for mural thickening related to physiologic contraction. *No biliary duct dilatation. Discharge Plan Discharge Anticipated Discharge Date/Time: 08/28/23 09:27 Patient Disposition: Home Health Service Discharge Diagnosis: Pneumonia Heart failure Referrals: Yoselyn Figueroa MD [Primary Care Provider] - 1 Week Discharge Medications: New amoxicillin-pot clavulanate 400-57 mg/5 mL suspension for reconstitution 10 ml PO BID Qty: 100 0RF benzonatate 100 mg capsule 100 mg PO TID PRN (Reason: cough) Qty: 20 1RF Continued (DME) blood-glucose meter [FreeStyle [place] Lite] Kit See Rx Instructions .ROUTE .MEDSUPPLY Qty: 1 0RF Rx Instructions: As directed (DME) FreeStyle Lite Strips Strip See Rx Instructions .Route Qty: 100 1RF Rx Instructions: Use 1 test strip once a day loratadine 10 mg tablet 10 mg PO DAILY Qty: 90 3RF albuterol sulfate [Ventolin HFA] 90 mcg/actuation HFA aerosol inhaler 2 puff inhalation Q6H PRN (Reason: bronchospasm) 30 Days Qty: 6.7 1RF amlodipine 10 mg tablet 10 mg PO DAILY Qty: 90 2RF atorvastatin 80 mg tablet 80 mg PO DAILY Qty: 90 2RF (DME) FreeStyle Lite Strips Strip See Rx Instructions .Route Qty: 100 1RF Rx Instructions: Use 1 test strip once a day cetirizine 5 mg/5 mL solution 10 mg PO DAILY PRN (Reason: allergy symptoms) 30 Days Qty: 150 0RF citalopram 20 mg tablet 20 mg PO DAILY 90 Days Qty: 90 0RF dicyclomine 20 mg tablet 20 mg PO TID 30 Days Qty: 90 3RF doxazosin [Cardura] 2 mg tablet 2 mg PO DAILY Qty: 30 11RF ferrous sulfate [iron] 325 mg (65 mg iron) tablet 325 mg PO DAILY 90 Days Qty: 90 1RF folic acid 1 mg tablet 1 mg PO DAILY 90 Days Qty: 90 3RF hydralazine 100 mg tablet 100 mg PO BID Qty: 180 1RF losartan 25 mg tablet 25 mg PO DAILY Qty: 90 1RF metformin 500 mg tablet extended release 24 hr 1,000 mg PO DAILY 90 Days Qty: 180 3RF metoprolol succinate 100 mg tablet extended release 24 hr 100 mg PO DAILY 90 Days Qty: 90 2RF oxybutynin chloride 10 mg tablet extended release 24hr 10 mg PO DAILY Qty: 90 1RF meclizine 25 mg tablet 25 mg PO TID PRN (Reason: dizziness) 30 Days Qty: 90 0RF lidocaine 5 % adhesive patch,medicated 1 patch topical DAILY 30 Days Qty: 30 0RF Rx Instructions: leave on most painful area for up to 12 hrs niacin 500 mg tablet extended release 24 hr 500 mg PO BEDTIME 90 Days Qty: 90 0RF furosemide 80 mg tablet 80 mg PO DAILY 30 Days Qty: 30 0RF alendronate [Fosamax] 70 mg tablet 70 mg PO SHAW@0900 ergocalciferol (vitamin D2) [Vitamin D2] 1,250 mcg (50,000 unit) capsule 1,250 mcg PO SHAW@0900 cyanocobalamin (vitamin B-12) [Vitamin B-12] 1,000 mcg tablet 1,000 mcg PO MOWEFR@0900 omeprazole 20 mg capsule,delayed release(DR/EC) 20 mg PO DAILY@0630 promethazine 25 mg tablet 25 mg PO TID PRN (Reason: nausea and vomiting) 30 Days Qty: 10 1RF hydrocortisone [Anti-Itch (HC)] 1 % cream 1 appl topical BID PRN (Reason: skin irritation) 14 Days Qty: 28.4 0RF fluticasone propion-salmeterol [Advair HFA] 115-21 mcg/actuation HFA aerosol inhaler 2 puff inhalation Q12H Qty: 12 6RF Discharge Orders: Discharge Order (Routine); Ordered 08/28/23 Ordered By: Dave Rich Diet: Low salt diet Activity on Discharge: As tolerated Stand Alone Forms: Patient Portal Discharge page Print Language: Greenlandic Care Plan Goals: Continue Antibiotics for 5 more days Tessalon as needed for cough Follow with dr Bueno as outpatient if continues to have abdominal pain after finishing the treatment Low fat diet , low sodium diet Health Concerns: Read below Plan of Treatment: Read below Assessment: Read below
--- NOTE | 2023-08-28 10:41 | MHC.CM.PN ---
PT WILL DC HOME TODAY WITH RESUMPTION OF COMFORT PLUS VNA AND [facility] FAMILY TO TRANSPORT
== END 2023-08-28 10:21 | disposition home health service (06) | DRG 871 ==
LOC: HO.ED 23:30 → HO.EDOVER 08-26 04:16 → HO.S3 08-26 11:50
PROVIDERS: Physician Assistant; Admitting Provider Student in an Organized Health Care Education/Training Program; Emergency Provider Student in an Organized Health Care Education/Training Program; PCP Internal Medicine; Visit Provider Student in an Organized Health Care Education/Training Program
DX: A41.9 Sepsis, unspecified organism (principal); I50.33 Acute on chronic diastolic (congestive) heart failure; J18.9 Pneumonia, unspecified organism; J44.0 Chronic obstructive pulmonary disease with (acute) lower respiratory infection; J96.11 Chronic respiratory failure with hypoxia; I11.0 Hypertensive heart disease with heart failure; K80.20 Calculus of gallbladder without cholecystitis without obstruction; E83.42 Hypomagnesemia; Z99.81 Dependence on supplemental oxygen; F39 Unspecified mood [affective] disorder; D50.9 Iron deficiency anemia, unspecified; E11.65 Type 2 diabetes mellitus with hyperglycemia; E78.2 Mixed hyperlipidemia; Z20.822 Contact with and (suspected) exposure to COVID-19; Z95.0 Presence of cardiac pacemaker; Z79.51 Long term (current) use of inhaled steroids; Z79.84 Long term (current) use of oral hypoglycemic drugs; Z79.899 Other long term (current) drug therapy
CPT/HCPCS: 36415; 71045; 71260; 74177; 76705; 80048; 80053; 80202; 81001; 82565; 82803; 82947; 83036; 83605; 83735; 83880; 84484; 85025; 85027; 87040; 87086; 87502; 87635; 93005; 94640; 97162; 99285; J0692; J1650; J1940; J2405; J2543; J3370; J3371; J3475; Q9967

== ENCOUNTER → 2023-08-25 20:33 | Outpatient (BNV) | payer OTHER, SELFPAY | PROVIDERS: Admitting Provider Student in an Organized Health Care Education/Training Program; Emergency Provider Student in an Organized Health Care Education/Training Program; PCP Internal Medicine; Visit Provider Internal Medicine Cardiovascular Disease | DX: R07.9 Chest pain, unspecified (principal) | CPT/HCPCS: 93010 ==

== ENCOUNTER → 2023-08-26 04:05 | Outpatient (BNV) | payer OTHER, SELFPAY | PROVIDERS: Admitting Provider Student in an Organized Health Care Education/Training Program; Emergency Provider Student in an Organized Health Care Education/Training Program; PCP Internal Medicine; Visit Provider Surgery | DX: K80.20 Calculus of gallbladder without cholecystitis without obstruction (principal) | CPT/HCPCS: 99222 ==

== ENCOUNTER → 2023-08-26 04:05 | Outpatient (BNV) | payer OTHER, SELFPAY | PROVIDERS: Admitting Provider Student in an Organized Health Care Education/Training Program; Emergency Provider Student in an Organized Health Care Education/Training Program; PCP Internal Medicine; Visit Provider Student in an Organized Health Care Education/Training Program | DX: A41.9 Sepsis, unspecified organism (principal); I50.9 Heart failure, unspecified; K80.20 Calculus of gallbladder without cholecystitis without obstruction; J18.9 Pneumonia, unspecified organism; E83.42 Hypomagnesemia | CPT/HCPCS: 99223; 99233; 99239; 99499 ==

== ENCOUNTER → 2023-09-01 23:59 | Outpatient (BNV) | payer OTHER, SELFPAY | PROVIDERS: PCP Internal Medicine; Visit Provider Internal Medicine | DX: J44.1 Chronic obstructive pulmonary disease with (acute) exacerbation (principal); J96.20 Acute and chronic respiratory failure, unspecified whether with hypoxia or hypercapnia; I50.33 Acute on chronic diastolic (congestive) heart failure | CPT/HCPCS: G0180 ==

== ENCOUNTER → 2023-09-10 23:59 | Outpatient (BNV) | payer OTHER, SELFPAY ==
--- NOTE | 2023-09-20 16:59 | A.OFFVIS_ITS ---
Intake Visit Reasons: Remote device check- [place] Allergies egg [EGG] Adverse Reaction (Intermediate, Verified 09/14/23 10:22) DIARRHEA oats [OATS] Adverse Reaction (Intermediate, Verified 09/14/23 10:22) DIARRHEA FROM OATMEAL Pioglitazone HCl Adverse Reaction (Intermediate, Uncoded 09/14/23 10:22) edema PFS Medical History Acute on chronic heart failure with preserved ejection fraction (HFpEF) Acute on chronic combined systolic (congestive) and diastolic (congestive) heart failure Acute hypoxemic respiratory failure Acute on chronic diastolic (congestive) heart failure Hearing loss CHF (congestive heart failure) Iron deficiency anemia Left hemiparesis Cardiac pacemaker in situ Diastolic dysfunction Ear discomfort Otitis media Moderate asthma Pure hypercholesterolemia Osteoporosis B12 deficiency Gallstones GERD (gastroesophageal reflux disease) Hypovitaminosis D History of stroke Diabetes mellitus Essential hypertension Surgical History History of pacemaker Family History Father No problems noted. Mother No problems noted. Social History Household Members: Family Housing: House Housing Other:: lives with daughter Are you a primary foster care therapist to a significant other at home: No Do you presently have visiting nurse or other home services: Yes (PT and Nursing) Alcohol intake: never Patient Tobacco Use Status: Former Tobacco user Tobacco use type: Cigarette e-Cigarette/Vaping Use: Never Used Second Hand Smoke Exposure: No Advance Directives Date on File: 07/02/21 service: No Current occupational status: disabled Cognitive needs: Yes (walker) Hearing needs: No Vision needs: Yes (glasses) Office Procedures Cardiac Device Check Cardiac Device Check Details: remote pacemaker report generated 09/10/2023. Pacemaker function is adequate [id number] Cardiac Device Interrogation, pacemaker Procedure code (CPT) selection complete Assessment & Plan Assessment & Plan (1) Cardiac pacemaker in situ: Code(s): Z95.0 - Presence of cardiac pacemaker Category: Medical Plan: see above Coding Level of Care Code Procedure Only Diagnoses Cardiac pacemaker in situ Z95.0 CPT Codes Cardiac Device Check - Cardiac Device 12: [id number] Cardiac Device Interrogation, pacemaker ([id number])
== END ==
PROVIDERS: PCP Internal Medicine; Visit Provider Internal Medicine Cardiovascular Disease
DX: I50.42 Chronic combined systolic (congestive) and diastolic (congestive) heart failure (principal); Z95.0 Presence of cardiac pacemaker
CPT/HCPCS: 93294

== ENCOUNTER 2023-09-14 10:17 | Outpatient (AMB) | payer OTHER, SELFPAY ==
--- NOTE | 2023-09-14 10:17 | A.OFFVIS_ITS ---
Vital Signs 09/14/23 10:19 Height 5 ft 2 in Weight 156 lb 2 oz BMI 28.6 BP 140/60 H Blood Pressure Location Rt brachial Position Sitting Pulse 75 Pulse Source Pulse Oximeter Pulse Oximetry (%) 92 Oxygen Delivery Method Nasal Cannula Oxygen Flow Rate 2 Intake Visit Reasons: COPD Allergies egg [EGG] Adverse Reaction (Intermediate, Verified 09/14/23 10:22) DIARRHEA oats [OATS] Adverse Reaction (Intermediate, Verified 09/14/23 10:22) DIARRHEA FROM OATMEAL Pioglitazone HCl Adverse Reaction (Intermediate, Uncoded 09/14/23 10:22) edema HPI HPI COPD: Details: Nedra is a pleasant 78 year old female, former smoker, with 60+ pack year history, quit 5 years ago with underlying COPD, asthma, HTN, DMII, diastolic dysfunction s/p pacer and CVA with left-sided residual hemiparesis. She is accompanied by her [id number] today. She was referred [place] [facility] [place] diagnosed with acute respiratory failure with hypoxia now on 2L of supplemental oxygen and CHF exacerbation. She was again treated for CHF exacerbation and sepsis secondary to pneumonia on 08/20/23. She was treated with IV vancomycin/zosyn, then discharged with Augmentin. She reports cough has significantly improved, no longer productive but continues with dry cough and intermittent wheezing. She was switched from Flovent to Advair at the last visit, however has difficulties using. Encouraged using a spacer, but patient uses infrequently. Since her most recent discharge, she has had a visiting nurse 3x per week, checking oxygen/weight. Of note, her weight recently increased and patient had recent increase in lasix, again to 80 mg. She has an upcoming appt with cardiology Wednesday. She has been using 2 L supplemental oxygen continuously, at night as well. Hibkbqam-wj-iyx states can not say for certain what her home O2 have been ranging. [facility] Medical History Acute on chronic heart failure with preserved ejection fraction (HFpEF) Acute on chronic combined systolic (congestive) and diastolic (congestive) heart failure Acute hypoxemic respiratory failure Acute on chronic diastolic (congestive) heart failure Hearing loss CHF (congestive heart failure) Iron deficiency anemia Left hemiparesis Cardiac pacemaker in situ Diastolic dysfunction Ear discomfort Otitis media Moderate asthma Pure hypercholesterolemia Osteoporosis B12 deficiency Gallstones GERD (gastroesophageal reflux disease) Hypovitaminosis D History of stroke Diabetes mellitus Essential hypertension Surgical History History of pacemaker Family History Father No problems noted. Mother No problems noted. Social History Household Members: Family Housing: House Housing Other:: lives with daughter Are you a primary home care manager rn to a significant other at home: No Do you presently have visiting nurse or other home services: Yes (PT and Nursing) Alcohol intake: never Patient Tobacco Use Status: Former Tobacco user Tobacco use type: Cigarette e-Cigarette/Vaping Use: Never Used Second Hand Smoke Exposure: No Advance Directives Date on File: 07/02/21 service: No Current occupational status: disabled Cognitive needs: Yes (walker) Hearing needs: No Vision needs: Yes (glasses) Review of Systems Const Denies chills, Denies excessive sweating, Denies fever(s), Denies headache(s) and Denies night sweats Eyes Denies dry eyes, Denies irritation and Denies itchy eyes ENT Reports Normal hearing present, Denies headache(s), Denies nasal congestion, Denies nasal discharge, Denies post nasal drip and Denies sore throat Card Denies chest pain, Denies chest pain at rest, Denies chest pain with activity, Denies claudication, Denies leg edema, Reports dyspnea on exertion, Denies orthopnea and Denies paroxysmal nocturnal dyspnea Resp Denies chest congestion, Reports cough, Denies hemoptysis, Denies excessive phlegm production, Denies pain on inspiration, Denies pain with cough, Reports dyspnea on exertion, Denies stridor and Reports wheezing Musc Denies myalgias Neuro Reports Normal hearing present and Denies headache(s) Endo Denies excessive sweating Eric/Lymph Denies lymphadenopathy Aller/Immun Denies itchy eyes, Denies seasonal rhinorrhea and Reports wheezing Physical Exam Vital Signs: Last Vital Signs Pulse 75 09/14/23 10:19 BP 140/60 H 09/14/23 10:19 Pulse Ox 92 09/14/23 10:19 Oxygen Delivery Method Nasal Cannula 09/14/23 10:19 Oxygen Flow Rate 2 09/14/23 10:19 BMI result Body Mass Index 28.6 Const General: cooperative, healthy appearing, comfortable, no acute distress, well developed and alert Nutritional Appearance: obese Orientation/consciousness: patient oriented x3 Limitations: ambulation with cane HEENT Head: Yes normal to inspection, Yes normocephalic and Yes atraumatic Ears: hearing grossly normal bilaterally and external ears normal Eyes General: appearance normal, both eyes and all related structures Eyelids: Yes eyelids normal Sclerae: sclerae normal EOM: EOMs intact bilaterally Neck Neck: Yes normal visual inspection and Yes no lymphadenopathy Lymphatic: no lymphadenopathy noted Chest Chest palpation & inspection: normal inspection of the chest Resp Other: LLL inspiratory crackles Effort & Inspection: normal respiratory effort, able to speak in complete sentences, no audible wheezes, no cough, no stridor, not tachypneic, no tripod positioning and no use of accessory muscles Auscultation: no wheezes and diminished lung sounds Cardio Jugular venous distension: no JVD Rate: regular rate Rhythm: regular rhythm Skin Other: warm, dry General skin exam: no rashes or lesions noted Neuro General: patient oriented x3 Cranial nerves: Yes Normal hearing present Cognition (Neuro): normal cognition Gait exam (Neuro): Normal gait present Extrem Other: 1+ pitting edema BLE Psych Appearance: grossly normal and well kempt Speech and movement: Normal speech and movement present and Clear speech present Affect: normal affect Attitude: cooperative Thought process: Normal thought process present Thought content: Normal thought content present Insight: Good insight present (Psych) Judgement: Good judgement present (Psych) Assessment & Plan Assessment & Plan (1) COPD (chronic obstructive pulmonary disease): Code(s): J44.9 - Chronic obstructive pulmonary disease, unspecified Category: Medical Qualifiers: COPD type: unspecified COPD Qualified Code(s): J44.9 - Chronic obstructive pulmonary disease, unspecified (2) Oxygen dependent: Code(s): Z99.81 - Dependence on supplemental oxygen Category: Medical (3) CHF (congestive heart failure): Code(s): I50.9 - Heart failure, unspecified Category: Medical Plan Nedra reports improvement overall since being discharged for recent CHF exacerbation and sepsis secondary to bilateral PNA. On exam patient with faint inspiratory crackles otherwise lung sounds diminished. Given that she was rec ently treated with PNA with improvement in symptoms and lasix was adjusted yesterday, will hold off on any immediate imaging. Daughter in law aware, if symptoms begin to worsen to call the office or seek emergent care. Will send for repeat chest CT to assess for resolution of PNA in 8-10 weeks. Encouraged patient to use spacer and will trial a daily nebulizer treatment. Will send in levalbuterol for use, due to cardiac history. Will also send for overnight oximetry to ensure 2L of supplemental oxygen is sufficient. Overnight is to be performed on 2L of supplemental oxygen. All questions were answered and patient is in agreement of plan. Will follow up to review chest CT results or sooner if needed. 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
[2023-09-14 10:19] VITALS: BP 140/60; PULSE 75; O2SAT 92; BMI 28.6
== END 2023-09-14 10:52 | disposition home or self-care (01) ==
LOC: HO.HPSW 10:17
PROVIDERS: PCP Internal Medicine; Visit Provider Nurse Practitioner Family
DX: J44.9 Chronic obstructive pulmonary disease, unspecified (principal); Z99.81 Dependence on supplemental oxygen; I50.9 Heart failure, unspecified
CPT/HCPCS: 99214

== ENCOUNTER → 2023-09-14 10:17 | Outpatient (BNVA) | payer OTHER, SELFPAY | PROVIDERS: PCP Internal Medicine; Visit Provider Nurse Practitioner Family | DX: J44.9 Chronic obstructive pulmonary disease, unspecified (principal); I50.9 Heart failure, unspecified; Z99.81 Dependence on supplemental oxygen | CPT/HCPCS: 99212 ==

== ENCOUNTER 2023-09-17 08:08 | Outpatient (AMB) | payer OTHER, SELFPAY ==
[2023-09-17 08:25] VITALS: BP 110/52; PULSE 74; BMI 28.8
--- NOTE | 2023-09-17 08:25 | A.OFFVIS_ITS ---
Vital Signs 09/17/23 08:25 Height 5 ft 2 in Weight 157 lb 6.561 oz BMI 28.8 BP 110/52 L Blood Pressure Location Lt brachial Position Sitting Pulse 74 Pulse Source Monitor Intake Visit Reasons: Follow up ED. Recreational Counselor Required: Yes Recreational Counselor Name: romeo Forman/Daughter in law Accompanied by: Other Relationship Allergies egg [EGG] Adverse Reaction (Intermediate, Verified 09/14/23 10:22) DIARRHEA oats [OATS] Adverse Reaction (Intermediate, Verified 09/14/23 10:22) DIARRHEA FROM OATMEAL Pioglitazone HCl Adverse Reaction (Intermediate, Uncoded 09/14/23 10:22) edema Medication List - Last Reconciled 09/17/23 by Bryn Newell MD albuterol sulfate 90 mcg/actuation (Ventolin HFA) 2 puffs inhalation Q6H PRN 30 days alendronate (Fosamax) 70 mg PO SHAW@0900 amlodipine 10 mg PO DAILY atorvastatin 80 mg PO DAILY benzonatate 100 mg PO TID PRN blood sugar diagnostic (FreeStyle Lite Strips) Use 1 test strip once a day blood sugar diagnostic (FreeStyle Lite Strips) Use 1 test strip once a day blood-glucose meter (FreeStyle [place] Lite kit) As directed cetirizine 10 mg (10 mL) PO DAILY PRN 30 days citalopram 20 mg PO DAILY 90 days cyanocobalamin (vitamin B-12) (Vitamin B-12) 1,000 mcg PO MOWEFR@0900 dicyclomine 20 mg PO TID 30 days doxazosin (Cardura) 2 mg PO DAILY ergocalciferol (vitamin D2) (Vitamin D2) 1,250 mcg PO SHAW@0900 ferrous sulfate (iron) 325 mg PO DAILY 90 days fluticasone propion-salmeterol 115-21 mcg/actuation (Advair HFA) 2 puffs inhalation Q12H folic acid 1 mg PO DAILY 90 days furosemide 80 mg PO DAILY guaifenesin ER (Mucinex) 600 mg PO BID 5 days hydralazine 100 mg PO BID hydrocortisone 1% (Anti-Itch (hydrocortisone)) 1 appl topical BID PRN 2 weeks levalbuterol HCl 1.25 mg (3 mL) inhalation Q4-6H PRN lidocaine 5% 1 patch topical DAILY 30 days loratadine 10 mg PO DAILY losartan 25 mg PO DAILY meclizine 25 mg PO TID PRN 30 days metformin ER 1,000 mg (2 x 500 mg) PO DAILY 90 days metoprolol succinate ER 100 mg PO DAILY 90 days niacin ER 500 mg PO BEDTIME 90 days omeprazole 20 mg PO DAILY@0630 oxybutynin chloride ER 10 mg PO DAILY promethazine 25 mg PO TID PRN 30 days HPI Comments Details: Nedra comes for follow-up with her daughter. She acts as software applications engineer. They declined a certified software applications engineer. Patient was recently admitted with sepsis and pneumonia and had decompensated congestive heart failure. She has then been at home and is currently on 80 mg of Lasix at home. But as per the patient she has had increased leg swelling. No worsening shortness of breath or orthopnea. Her weight is also increase although this is unclear completely. Denies any palpitations. Denies any lightheadedness, syncope. No exertional chest pain. Uses oxygen around the clock [facility] Medical History Acute on chronic heart failure with preserved ejection fraction (HFpEF) Acute on chronic combined systolic (congestive) and diastolic (congestive) heart failure Acute hypoxemic respiratory failure Acute on chronic diastolic (congestive) heart failure Hearing loss CHF (congestive heart failure) Iron deficiency anemia Left hemiparesis Cardiac pacemaker in situ Diastolic dysfunction Ear discomfort Otitis media Moderate asthma Pure hypercholesterolemia Osteoporosis B12 deficiency Gallstones GERD (gastroesophageal reflux disease) Hypovitaminosis D History of stroke Diabetes mellitus Essential hypertension Surgical History History of pacemaker Family History Father No problems noted. Mother No problems noted. Social History Household Members: Family Housing: House Housing Other:: lives with daughter Are you a primary technical healthcare consultant to a significant other at home: No Do you presently have visiting nurse or other home services: Yes (PT and Nursing) Alcohol intake: never Patient Tobacco Use Status: Former Tobacco user Tobacco use type: Cigarette e-Cigarette/Vaping Use: Never Used Second Hand Smoke Exposure: No Advance Directives Date on File: 07/02/21 service: No Current occupational status: disabled Cognitive needs: Yes (walker) Hearing needs: No Vision needs: Yes (glasses) Review of Systems Const Denies chills, Denies fatigue, Denies fever(s), Denies frequent falls, Denies weakness, Denies weight gain and Denies weight loss ENT Denies dizziness Card Denies chest pain, Denies leg edema, Denies lightheadedness, Denies palpitations, Denies dyspnea and Denies dyspnea on exertion Resp Denies cough, Denies dyspnea and Denies dyspnea on exertion GI Denies hematochezia Musc Denies abnormal gait, Denies muscle weakness, Denies numbness, Denies radiating pain into limb and Denies tingling Neuro Denies abnormal gait, Denies dizziness, Denies frequent falls, Denies numbness, Denies tingling and Denies weakness Endo Denies fatigue and Denies palpitations Physical Exam Vital Signs: Last Vital Signs Pulse 74 09/17/23 08:25 BP 110/52 L 09/17/23 08:25 BMI result Body Mass Index 28.8 Const General: cooperative, comfortable, no acute distress, alert and awake Nutritional Appearance: obese Orientation/consciousness: patient oriented x3 Limitations: ambulation with cane Neck Neck: Yes trachea midline, Yes supple and Yes JVD Resp Effort & Inspection: normal respiratory effort Auscultation: clear to auscultation bilaterally Cardio Jugular venous distension: JVD Palpation: normal PMI Rate: regular rate Rhythm: regular rhythm Heart sounds: S1 normal heart sound present, S2 normal heart sound present, no click, no gallops, no murmurs and Other heart sounds present (Soft S4 present) GI Auscultation: normal bowel sounds Skin General skin exam: no rashes or lesions noted Neuro General: patient oriented x3 and no focal motor deficits Extrem General: No clubbing, No cyanosis and Yes edema Psych Appearance: grossly normal Office Procedures Cardiac Device Check Cardiac Device Check Details: Dual-chamber [place] pacemaker in place. Programmed in DDDR at 60 beats per minute. Atrial pacing 5% of the time. Atrial ventricular pacing thresholds adequate and in auto capture mode. Atrial ventricular sensing is adequate. Pacing lead impedance is stable. Battery life is at 1.8 years [id number] Cardiac Device Check, pacemaker dual lead Procedure code (CPT) selection complete Assessment & Plan Assessment & Plan (1) CHF (congestive heart failure): Code(s): I50.9 - Heart failure, unspecified Category: Medical Plan: Heart failure preserved ejection fraction with advanced diastolic dysfunction, clinically appears to be volume overloaded. Discussed with patient and patient's daughter about increasing Lasix by 40 mg for the next few days till she has improvement in her leg swelling and her weight has improved. Will add Jardiance 10 mg to regimen for management of heart failure as well. Importance of daily weight monitoring avoidance of salt loading was discussed. Additional diuretics as need be. Continue aggressive control blood pressure. Follow-up blood work next week. Goals of therapy were discussed. Continue oxygen therapy. (2) Essential hypertension: Code(s): I10 - Essential (primary) hypertension Category: Medical Plan: Hypertension which is currently well optimized on current regimen. She is on multiple medications to control blood pressure which has been difficult in the past. Importance of good blood pressure control was discussed advised to monito r blood pressure at home maintain a log. Goal blood pressure less than 130/84. Advise low-salt diet. (3) Cardiac pacemaker in situ: Code(s): Z95.0 - Presence of cardiac pacemaker Category: Medical Plan: Cardiac pacemaker in-situ, working well. Reprogrammed for adequate function. Will follow-up remotely in 3 months and follow up in the clinic in 6 months time. Thank you for allowing me to partake in his care Follow up in the clinic in 3 months time, sooner p.r.n.. Thank you for allowing me to partake in the care Orders: Orders B Type Natriuretic Peptide 1 Week I50.9 - Heart failure, unspecified Medications: New empagliflozin (Jardiance) 10 mg PO DAILY 30 tabs 5RF Coding Level of Care Code Est Pt Level 4 (31094) Diagnoses CHF (congestive heart failure) I50.9 Essential hypertension I10 Cardiac pacemaker in situ Z95.0 CPT Codes Cardiac Device Check - Cardiac Device 2: [id number] Cardiac Device Check, pacemaker dual lead ([id number])
== END 2023-09-17 08:45 | disposition home or self-care (01) ==
PROVIDERS: PCP Internal Medicine; Visit Provider Internal Medicine Cardiovascular Disease
DX: I11.0 Hypertensive heart disease with heart failure (principal); I50.32 Chronic diastolic (congestive) heart failure; Z95.0 Presence of cardiac pacemaker
CPT/HCPCS: 93280; 99214

== ENCOUNTER → 2023-09-17 08:08 | Outpatient (BNVA) | payer OTHER, SELFPAY | PROVIDERS: PCP Internal Medicine; Visit Provider Internal Medicine Cardiovascular Disease | DX: Z45.018 Encounter for adjustment and management of other part of cardiac pacemaker (principal); I11.0 Hypertensive heart disease with heart failure; I50.9 Heart failure, unspecified | CPT/HCPCS: 93280; 99212 ==

== ENCOUNTER 2023-09-18 07:00 | Outpatient (REF) | payer OTHER, SELFPAY ==
[2023-09-18 07:24] LABS: MANUAL DIFF FLAG NO
[2023-09-18 09:11] LABS: Basophils Absolute Auto 0.1 X10*3/uL (0.0-0.2); Basophils Percent Auto 0.8 % (0-2); Eosinophils Absolute Auto 0.1 X10*3/uL (0.0-0.4); Eosinophils Percent Auto 1.6 % (0-4); Hematocrit 31.6 % (37.0-47.0); Hemoglobin 9.4 g/dl (12.0-16.0); Imm Gran Abs Auto 0.02 X10*3/uL (0.00-0.03); Imm Gran Pct Auto 0.3 % (0.0-0.4); Lymphocytes Absolute Auto 2.1 X10*3/uL (1.2-4.9); Mean Corpuscular HGB Conc 29.7 g/dl (31.0-35.0); Mean Corpuscular Volume 77.5 fL (80.0-98.0); Mean Platelet Volume 10.3 fL (9.4-12.3); Monocytes Absolute Auto 0.6 X10*3/uL (0.1-1.2); Monocytes Percent Auto 9.2 % (2-11); Neutrophils Absolute Auto 3.6 x10*3/uL (2.0-8.3); Neutrophils Percent Auto 56.1 % (45-73); Platelet Count 324 X10*3/uL (160-400); Red Blood Count 4.08 X10*6/uL (4.20-5.50); Red Cell Distribution Width 18.9 % (11.0-16.0); White Blood Count 6.4 X10*3/uL (4.8-10.8)
[2023-09-18 09:45] LABS: B Type Natriuretic Peptide 330 pg/mL (<100)
[2023-09-18 10:09] LABS: Microalbum/Creatinine Ratio Ur 26.6 ug/mg cr (<30)
[2023-09-18 10:28] LABS: Vitamin D 25-OH Total 46.5 ng/mL (>30)
[2023-09-18 10:41] LABS: Carbon Dioxide 32 mmol/L (22-29); Chloride 100 mmol/L (96-108); Potassium 3.3 mmol/L (3.3-5.1); Sodium 143 mmol/L (135-145)
[2023-09-18 10:42] LABS: Alanine Aminotransferase 34 U/L (0-31); Albumin Level 3.5 g/dL (3.5-5.0); Alkaline Phosphatase 90 U/L (39-117); Anion Gap 14 (12-20); Aspartate Amino Transferase 34 U/L (5-31); Bilirubin Total 0.4 mg/dL (0.0-1.0); Blood Urea Nitrogen 17 mg/dL (9-16); Calcium 8.2 mg/dL (8.4-10.2); Cholesterol 111 mg/dL (<200); Estimated Glomerular Filt Rate 41; Folate 14.4 ng/mL (> or = 4.0); Glucose Fasting 151 mg/dL (60-99); Glucose Random 150 mg/dL (60-115); HDL Cholesterol 34 mg/dL (>40); Iron 40 mcg/dL (30-160); LDL Cholesterol Calculated 66 mg/dL (<100); Magnesium 1.2 mg/dL (1.6-2.6); Percent Iron Saturation 19 % (15-50); Total Iron Binding Capacity 211 mcg/dL (228-428); Triglycerides 59 mg/dL (<150); Unsaturated Iron Binding 171 ug/dL; Vitamin B12 1345 pg/mL (200-900)
[2023-09-22 21:58] LABS: NT-proBNP 1580 pg/mL (<450)
== END 2023-09-18 07:01 | disposition home or self-care (01) ==
LOC: HO.LAB 07:00
PROVIDERS: Family Medicine; PCP Internal Medicine; Visit Provider Internal Medicine
DX: E11.9 Type 2 diabetes mellitus without complications (principal); E55.9 Vitamin D deficiency, unspecified; E53.8 Deficiency of other specified B group vitamins; E78.5 Hyperlipidemia, unspecified; D64.9 Anemia, unspecified; I50.43 Acute on chronic combined systolic (congestive) and diastolic (congestive) heart failure
CPT/HCPCS: 36415; 80053; 80061; 82043; 82306; 82570; 82607; 82746; 83540; 83735; 83880; 85025

== ENCOUNTER 2023-09-22 10:53 | Outpatient (AMB) | payer OTHER, SELFPAY ==
--- NOTE | 2023-09-22 10:55 | MHC.PC.OV ---
Vital Signs 09/22/23 10:57 09/22/23 12:07 Height 5 ft 2 in Weight 158 lb BMI 28.9 BP 110/60 Blood Pressure Location Lt brachial Position Sitting Pulse 82 72 Pulse Source Pulse Oximeter Pulse Oximeter Pulse Oximetry (%) 91 L 92 Oxygen Delivery Method Nasal Cannula Nasal Cannula Oxygen Flow Rate 2 Intake Visit Reasons: dm Intake Note: Patient here for a follow up DM Visual Training Aide Required: No Accompanied by: Family/Other Allergies egg [EGG] Adverse Reaction (Intermediate, Verified 09/22/23 11:22) DIARRHEA oats [OATS] Adverse Reaction (Intermediate, Verified 09/22/23 11:22) DIARRHEA FROM OATMEAL Pioglitazone HCl Adverse Reaction (Intermediate, Uncoded 09/22/23 11:22) edema Medication List - Last Reconciled 09/22/23 by Yoselyn Millan MD albuterol sulfate 90 mcg/actuation (Ventolin HFA) 2 puffs inhalation Q6H PRN 30 days alendronate (Fosamax) 70 mg PO SHAW@0900 amlodipine 10 mg PO DAILY atorvastatin 80 mg PO DAILY benzonatate 100 mg PO TID PRN blood sugar diagnostic (FreeStyle Lite Strips) Use 1 test strip once a day blood sugar diagnostic (FreeStyle Lite Strips) Use 1 test strip once a day blood-glucose meter (FreeStyle [place] Lite kit) As directed cetirizine 10 mg (10 mL) PO DAILY PRN 30 days citalopram 20 mg PO DAILY 90 days cyanocobalamin (vitamin B-12) (Vitamin B-12) 1,000 mcg PO MOWEFR@0900 dicyclomine 20 mg PO TID 30 days doxazosin (Cardura) 2 mg PO DAILY empagliflozin (Jardiance) 10 mg PO DAILY ergocalciferol (vitamin D2) (Vitamin D2) 1,250 mcg PO SHAW@0900 ferrous sulfate (iron) 325 mg PO DAILY 90 days fluticasone propion-salmeterol 115-21 mcg/actuation (Advair HFA) 2 puffs inhalation Q12H folic acid 1 mg PO DAILY 90 days furosemide 80 mg (2 x 40 mg) PO DAILY 90 days guaifenesin ER (Mucinex) 600 mg PO BID 5 days hydralazine 100 mg PO BID hydrocortisone 1% (Anti-Itch (hydrocortisone)) 1 appl topical BID PRN 2 weeks levalbuterol HCl 1.25 mg (3 mL) inhalation Q4-6H PRN lidocaine 5% 1 patch topical DAILY 30 days loratadine 10 mg PO DAILY losartan 25 mg PO DAILY magnesium oxide 500 mg PO DAILY 30 days meclizine 25 mg PO TID PRN 30 days metformin ER 1,000 mg (2 x 500 mg) PO DAILY 90 days metoprolol succinate ER 100 mg PO DAILY 90 days niacin ER 500 mg PO BEDTIME 90 days omeprazole 20 mg PO DAILY@0630 oxybutynin chloride ER 10 mg PO DAILY promethazine 25 mg PO TID PRN 30 days Tobacco use date assessed: 05/18/23 Fall risk assessment: No Falls in past year Last assessed Fall Risk: 09/22/23 Dental Screening Dental Screen Date: 05/18/23 HPI HPI Comments History of Present Illness Details This is an 78-year-old female with diabetes mellitus type 2, COPD, congestive heart failure with preserved ejection fraction, hypertension and mild major depression that comes today accompanied by daughter in-law which is the LOAN CLERK for follow-up on her conditions. She was recently hospitalized due to sepsis last month and had bilateral pleural effusions and I will order x-ray of the chest. Feels short of breath today but her oxygen saturation is 92% at 2 L of nasal cannula with heart rate of 72. Last A1c was close to goal. Will see pulmonology for her COPD in November. Echocardiogram shows ejection fraction of 55-60% and her weight has been stable. Saw cardiology recently which recommended to stay on furosemide 80 mg and give her 20 mg extra for 1 week. Blood pressure stable. Depression well controlled with citalopram. She has low levels of magnesium and this will be supplemented and magnesium levels will be repeated. She also has a gallbladder polyp and will be refer non urgently to surgery. [facility] Medical History (Updated 09/22/23 @ 12:11 by Yoselyn Millan MD) Acute and chronic respiratory failure CHF exacerbation COPD exacerbation Acute kidney failure Acute on chronic heart failure with preserved ejection fraction (HFpEF) Acute on chronic combined systolic (congestive) and diastolic (congestive) heart failure Acute hypoxemic respiratory failure Acute on chronic diastolic (congestive) heart failure Hearing loss CHF (congestive heart failure) Iron deficiency anemia Left hemiparesis Cardiac pacemaker in situ Diastolic dysfunction Ear discomfort Otitis media Moderate asthma Pure hypercholesterolemia Osteoporosis B12 deficiency Gallstones GERD (gastroesophageal reflux disease) Hypovitaminosis D History of stroke Diabetes mellitus Essential hypertension Surgical History History of pacemaker Family History Father No problems noted. Mother No problems noted. Social History Household Members: Family Housing: House Housing Other:: lives with daughter Are you a primary wound care rn to a significant other at home: No Do you presently have visiting nurse or other home services: Yes (PT and Nursing) Alcohol intake: never Patient Tobacco Use Status: Former Tobacco user Tobacco use type: Cigarette e-Cigarette/Vaping Use: Never Used Second Hand Smoke Exposure: No Advance Directives Date on File: 07/02/21 service: No Current occupational status: disabled Cognitive needs: Yes (walker) Hearing needs: No Vision needs: Yes (glasses) Questionnaire Thrive Questionnaire Date Thrive assessed: 08/27/23 ELBA-7 AMB Questionnaire ELBA-7 Date ELBA - 7 assessed: 05/18/23 Source: Developed by Drs. Prashanth Cuevas, Avelina Mariano, Elia Carney and colleagues, with an educational jayy from [employer]. Review of Systems Const All systems reviewed & are unremarkable except as noted in HPI and below Card Denies chest pain at rest, Denies chest pain with activity, Denies edema, Denies irregular heart rhythm, Denies claudication, Reports dyspnea, Reports dyspnea on exertion, Denies orthopnea, Denies paroxysmal nocturnal dyspnea and Denies slow heart rate Resp Denies cough, Reports dyspnea and Reports dyspnea on exertion Neuro Denies lack of coordination Physical exam (Primary Care) Vital Signs: Last Vital Signs Pulse 82 09/22/23 10:57 BP 110/60 09/22/23 10:57 Pulse Ox 91 L 09/22/23 10:57 Oxygen Delivery Method Nasal Cannula 09/22/23 10:57 BMI result Body Mass Index 28.9 BMI Assessment/Plan discussion: High BMI High, discussed plan: lifestyle, weight reduction, dietary and physical activity Tobacco/Smoking Status: Tobacco use Status Tobacco use date assessed 05/18/23 09/22/23 10:57 Patient Tobacco Use Status Former Tobacco user 09/22/23 10:57 Tobacco use type Cigarette 09/22/23 10:57 e-Cigarette/Vaping Use Never Used 09/22/23 10:57 Thrive Assessment: Date of Thrive Assessment Date Thrive assessed 08/27/23 09/22/23 10:57 Const General: in distress mild and ill appearing chronically Limitations: ambulation with cane HENMT General nose exam: Other nasal findings present (nasal canula in place) Resp Effort & Inspection: respiratory distress Auscultation: crackles bilateral at the base Cardio Jugular venous distension: no JVD Rate: regular rate Rhythm: regular rhythm Heart sounds: S1 normal heart sound present and S2 normal heart sound present Neuro Motor exam (neuro): Abnormal motor strength present (5/5 right, 4/5 left) Assessment and Plan Assessment & Plan (1) COPD (chronic obstructive pulmonary disease): Code(s): J44.9 - Chronic obstructive pulmonary disease, unspecified Qualifiers: COPD type: unspecified COPD Qualified Code(s): J44.9 - Chronic obstructive pulmonary disease, unspecified Plan: Continue Advair. Use rescue inhaler as needed. Follow-up with pulmonology. (2) Mild recurrent major depression: Code(s): F33.0 - Major depressive disorder, recurrent, mild Plan: Continue citalopram. (3) CHF (congestive heart failure): Code(s): I50.9 - Heart failure, unspecified Qualifiers: Heart failure type: diastolic Heart failure chronicity: chronic Qualified Code(s): I50.32 - Chronic diastolic (congestive) heart failure Plan: Increase furosemide. Weight patient daily. The goal is to not gain 5 lb in a week. (4) Diabetes mellitus: Code(s): E11.9 - Type 2 diabetes mellitus without complications Qualifiers: Diabetes mellitus type: type 2 Diabetes mellitus intermediate insulin use: without intermediate use Diabetes mellitus complication status: without complication Qualified Code(s): E11.9 - Type 2 diabetes mellitus without complications Plan: Continue Jardiance. A1c goal is equal or less than 7%. (5) Essential hypertension: Code(s): I10 - Essential (primary) hypertension Plan: Continue amlodipine and hydralazine. Blood pressure goal is equal or less than 130/80. (6) Hypomagnesemia: Code(s): E83.42 - Hypomagnesemia Plan: Start magnesium oxide. Repeat magnesium levels. (7) Gallbladder polyp: Code(s): K82.4 - Cholesterolosis of gallbladder Plan: Referred to general surgery. Orders: Orders XR chest 2V Today R93.89 - Abnormal findings on diagnostic imaging of other specified body structures Magnesium Today E83.42 - Hypomagnesemia Referrals General Surgery Referral K82.4 - Cholesterolosis of gallbladder Medications: New furosemide 100 mg (1.25 x 80 mg) PO DAILY 30 days 38 tabs 4RF compr.stocking,knee,long,large As directed 12 ea 11RF R60.0 - Localized edema Refilled magnesium oxide 500 mg PO DAILY 30 days 30 caps 0RF Discontinued furosemide Discontinued Reason: Patient Completed Course 80 mg (2 x 40 mg) PO DAILY 90 days 180 tabs 1RF Coding Level of Care Code Est Pt Level 5 (74364) Complex EM visit Add On G2211 Diagnoses Chronic obstructive pulmonary disease, unspecified COPD type J44.9 COPD type: unspecified COPD Mild recurrent major depression F33.0 Chronic diastolic congestive heart failure I50.32 Heart failure type: diastolic Heart failure chronicity: chronic Type 2 diabetes mellitus without complication, without long-term current use of insulin E11.9 Diabetes mellitus type: type 2 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
[2023-09-22 10:57] VITALS: BP 110/60; PULSE 82; O2SAT 91; BMI 28.9
[2023-09-22 12:07] VITALS: PULSE 72; O2SAT 92
== END 2023-09-22 11:28 | disposition home or self-care (01) ==
PROVIDERS: PCP Internal Medicine; Visit Provider Internal Medicine
DX: J44.9 Chronic obstructive pulmonary disease, unspecified (principal); F33.0 Major depressive disorder, recurrent, mild; I50.32 Chronic diastolic (congestive) heart failure; E11.9 Type 2 diabetes mellitus without complications; I11.0 Hypertensive heart disease with heart failure; E83.42 Hypomagnesemia; K82.4 Cholesterolosis of gallbladder
CPT/HCPCS: 99214; G2211

== ENCOUNTER → 2023-09-29 23:59 | Outpatient (BNV) | payer OTHER, SELFPAY | PROVIDERS: PCP Internal Medicine; Visit Provider Internal Medicine | DX: J96.01 Acute respiratory failure with hypoxia (principal); J18.9 Pneumonia, unspecified organism; E78.5 Hyperlipidemia, unspecified | CPT/HCPCS: G0179 ==

== ENCOUNTER 2023-10-01 08:54 | Outpatient (REF) | payer OTHER, SELFPAY ==
--- NOTE | ~2023-10-01 | XR_ITS ---
EXAMINATION: XR CHEST CLINICAL INFORMATION: Prior abnormal imaging. COMPARISON: 08/26/2023 and 08/25/2023 TECHNIQUE: 2 views of the chest were obtained. FINDINGS: Left chest wall permanent pacing device with leads projecting over the right atrium and right ventricle. The heart is enlarged. There is diffuse interstitial prominence. Patchy airspace disease at the left lung base. No pleural effusion. XR/XR chest 2V IMPRESSION: Patchy airspace disease at the left lung base may represent atelectasis versus infiltrate. Advise clinical correlation.
== END 2023-10-01 08:55 | disposition home or self-care (01) ==
LOC: HO.HMGCX 08:54
PROVIDERS: PCP Internal Medicine; Visit Provider Internal Medicine
DX: R93.89 Abnormal findings on diagnostic imaging of other specified body structures (principal)
CPT/HCPCS: 71046

== ENCOUNTER 2023-10-12 09:38 | Outpatient (AMB) | payer OTHER, SELFPAY ==
--- NOTE | 2023-10-12 10:10 | MHC.OFFVIS ---
Vital Signs 10/12/23 10:23 Height 5 ft 2 in Weight 153 lb BMI 28.0 BP 134/61 Blood Pressure Location Lt brachial Position Sitting Pulse 72 Intake Visit Reasons: Cholesterolosis of gallbladder Intake Note: Patient is seen in office for evaluation and treatment of a gallbladder. Pt c/o:onset over a year, pain RUQ on and off, denies n/v/d/c, went to ED due to pain about a month ago and had imaging done Accompanied by: Family/Other Allergies egg [EGG] Adverse Reaction (Intermediate, Verified 10/12/23 10:18) DIARRHEA oats [OATS] Adverse Reaction (Intermediate, Verified 10/12/23 10:18) DIARRHEA FROM OATMEAL Pioglitazone HCl Adverse Reaction (Intermediate, Uncoded 10/12/23 10:18) edema HPI Comments Details: Nedra is an 78 yr old woman w/ an extensive PMHx including COPD and CHF and no relevant PSx presenting w/ complaints of intermittent RUQ pain that radiates around her right side. She reports the pain comes and goes with no known cause. She reports that it is tender to palpation, but nothing else seems to make it worse or make it feel any better. She reports occasional diarrhea and some dysuria. No fever, chills, weight changes, no constipation. [facility] Medical History (Updated 10/12/23 @ 10:47 by Jesús Boogie MD) Acute and chronic respiratory failure CHF exacerbation COPD exacerbation Acute kidney failure Acute on chronic heart failure with preserved ejection fraction (HFpEF) Acute on chronic combined systolic (congestive) and diastolic (congestive) heart failure Acute hypoxemic respiratory failure Acute on chronic diastolic (congestive) heart failure Hearing loss CHF (congestive heart failure) Iron deficiency anemia Left hemiparesis Cardiac pacemaker in situ Diastolic dysfunction Ear discomfort Otitis media Moderate asthma Pure hypercholesterolemia Osteoporosis B12 deficiency Gallstones GERD (gastroesophageal reflux disease) Hypovitaminosis D History of stroke Diabetes mellitus Essential hypertension Surgical History History of pacemaker Family History Father No problems noted. Mother No problems noted. Social History Household Members: Family Housing: House Housing Other:: lives with daughter Are you a primary care information associate to a significant other at home: No Do you presently have visiting nurse or other home services: Yes (PT and Nursing) Alcohol intake: never Patient Tobacco Use Status: Former Tobacco user Tobacco use type: Cigarette e-Cigarette/Vaping Use: Never Used Second Hand Smoke Exposure: No Advance Directives Date on File: 07/02/21 service: No Current occupational status: disabled Cognitive needs: Yes (walker) Hearing needs: No Vision needs: Yes (glasses) Review of Systems Const All systems reviewed & are unremarkable except as noted in HPI and below Reports as per HPI, Denies headache(s) and Reports weakness ENT Denies headache(s) Card Denies chest pain, Denies palpitations and Reports dyspnea Resp Denies cough, Denies excessive phlegm production and Reports dyspnea GI Reports as per HPI, Reports abdominal pain, Denies constipation, Denies diarrhea, Denies nausea and Denies vomiting Reports as per HPI Musc Denies back pain, Denies muscle weakness and Denies numbness Skin/Breast Denies changing lesions and Denies unusual bruising Neuro Denies headache(s), Denies numbness, Denies paresthesias and Reports weakness Psych Denies anxiety and Denies depression Endo Denies palpitations Eric/Lymph Denies lymphadenopathy Physical Exam Vital Signs: Last Vital Signs Pulse 72 10/12/23 10:23 BP 134/61 10/12/23 10:23 BMI result Body Mass Index 28.0 Const General: cooperative, comfortable and no acute distress Nutritional Appearance: well nourished Orientation/consciousness: patient oriented x3 Limitations: no limitations HEENT Head: Yes normocephalic and Yes atraumatic Ears: hearing grossly normal bilaterally Resp Other: Patient on nasal O2 dyspnea at rest Effort & Inspection: no audible wheezes, no cough, labored and tachypneic Cardio Jugular venous distension: no JVD GI Other: Abdomen appears distended. Reports diffuse abdominal tenderness to light palpation, appears comfortable throughout exam Inspection: Yes distended Palpation (GI): Tenderness to palpation present (GI), no guarding, not rigid and No Rebound tenderness present Percussion: Yes dullness to percussion Rectal Exam - Female: deferred Skin Other: Warm, dry, no rash Neuro General: patient oriented x3 Extrem General: Yes no clubbing, cyanosis or edema Results Reviewed Results Reviewed: Reviewed ultrasound abdomen: Assessment & Plan Assessment & Plan (1) Gallstone: Code(s): K80.20 - Calculus of gallbladder without cholecystitis without obstruction Category: Medical Qualifiers: Cholecystitis presence: without cholecystitis Biliary obstruction: without biliary obstruction Qualified Code(s): K80.20 - Calculus of gallbladder without cholecystitis without obstruction Plan 78-year-old female patient presenting with a history of right upper quadrant abdominal pain radiating to the back found to have a possible gallstone or polyp within the gallbladder measuring approximately 6 mm at maximal diameter. Finding is located away from the neck of the gallbladder, which on ultrasound appears to be contracted and not obstructed by this lesion. Patient is markedly short of breath on nasal O2 at rest and certainly would not be a good candidate for general anesthesia. I would suggest observation without surgical intervention given the patient's overall medical condition. She should follow up as needed. Coding Level of Care Code Est Pt Level 3 (74716) Diagnoses Calculus of gallbladder without cholecystitis without obstruction K80.20 Cholecystitis presence: without cholecystitis Biliary obstruction: without biliary obstruction
[2023-10-12 10:23] VITALS: BP 134/61; PULSE 72; BMI 28.0
== END 2023-10-12 10:42 | disposition home or self-care (01) ==
PROVIDERS: PCP Internal Medicine; Visit Provider Surgery
DX: K80.20 Calculus of gallbladder without cholecystitis without obstruction (principal)
CPT/HCPCS: 99213

== ENCOUNTER → 2023-10-12 09:38 | Outpatient (BNVA) | payer OTHER, SELFPAY | PROVIDERS: PCP Internal Medicine; Visit Provider Surgery | DX: K80.20 Calculus of gallbladder without cholecystitis without obstruction (principal) | CPT/HCPCS: 99212 ==

== ENCOUNTER 2023-11-09 08:36 | Outpatient (AMB) | payer OTHER, SELFPAY ==
--- NOTE | 2023-11-09 08:38 | MHC.OFFVIS ---
Vital Signs 11/09/23 08:40 Height 5 ft 2 in Weight 147 lb BMI 26.9 BP 132/58 L Blood Pressure Location Rt brachial Position Sitting Pulse 62 Pulse Source Pulse Oximeter Pulse Oximetry (%) 100 Oxygen Delivery Method Nasal Cannula Oxygen Flow Rate 2 Intake Visit Reasons: COPD Allergies egg [EGG] Adverse Reaction (Intermediate, Verified 11/09/23 08:44) DIARRHEA oats [OATS] Adverse Reaction (Intermediate, Verified 11/09/23 08:44) DIARRHEA FROM OATMEAL Pioglitazone HCl Adverse Reaction (Intermediate, Uncoded 11/09/23 08:44) edema HPI HPI COPD: Details: Nedra is a pleasant 78 year old female, former smoker, with 60+ pack year history, quit 5 years ago with underlying COPD, asthma, HTN, DMII, diastolic dysfunction s/p pacer and CVA with left-sided residual hemiparesis. She is accompanied by her [id number] today. At the last visit, was given a spacer for use with Advair and continues to report dyspnea on exertion, dry cough and intermittent wheezing. Her daughter in law does note that she is likely not using Advair on a daily basis. She continues to use 2L supplemental oxygen as well as NOC. Since the last visit, she did report cough that was treated with zpak by PCP and CXR revealed possible atelectasis vs infiltrate. Today she presents to review overnight oximetry results. Of note, patient's weight is down 10lbs since last visit, BLE edema has improved after increase in lasix, now on 100 mg QD. [facility] Medical History (Updated 11/09/23 @ 12:19 by Phuong Acharya NP) Acute and chronic respiratory failure CHF exacerbation COPD exacerbation Acute kidney failure Acute on chronic heart failure with preserved ejection fraction (HFpEF) Acute on chronic combined systolic (congestive) and diastolic (congestive) heart failure Acute hypoxemic respiratory failure Acute on chronic diastolic (congestive) heart failure Hearing loss CHF (congestive heart failure) Iron deficiency anemia Left hemiparesis Cardiac pacemaker in situ Diastolic dysfunction Ear discomfort Otitis media Moderate asthma Pure hypercholesterolemia Osteoporosis B12 deficiency Gallstones GERD (gastroesophageal reflux disease) Hypovitaminosis D History of stroke Diabetes mellitus Essential hypertension Surgical History History of pacemaker Family History Father No problems noted. Mother No problems noted. Social History Household Members: Family Housing: House Housing Other:: lives with daughter Are you a primary respiratory care instructor to a significant other at home: No Do you presently have visiting nurse or other home services: Yes (PT and Nursing) Alcohol intake: never Patient Tobacco Use Status: Former Tobacco user Tobacco use type: Cigarette e-Cigarette/Vaping Use: Never Used Second Hand Smoke Exposure: No Advance Directives Date on File: 07/02/21 service: No Current occupational status: disabled Cognitive needs: Yes (walker) Hearing needs: No Vision needs: Yes (glasses) Review of Systems Const Denies chills, Denies excessive sweating, Denies fever(s), Denies headache(s) and Denies night sweats Eyes Denies dry eyes, Denies irritation and Denies itchy eyes ENT Reports Normal hearing present, Denies headache(s), Denies nasal congestion, Denies nasal discharge, Denies post nasal drip and Denies sore throat Card Denies chest pain, Denies chest pain at rest, Denies chest pain with activity, Denies claudication, Denies leg edema, Reports dyspnea on exertion, Denies orthopnea and Denies paroxysmal nocturnal dyspnea Resp Denies chest congestion, Reports cough, Denies hemoptysis, Denies excessive phlegm production, Denies pain on inspiration, Denies pain with cough, Reports dyspnea on exertion, Denies stridor and Reports wheezing Musc Denies myalgias Neuro Reports Normal hearing present and Denies headache(s) Endo Denies excessive sweating Eric/Lymph Denies lymphadenopathy Aller/Immun Denies itchy eyes, Denies seasonal rhinorrhea and Reports wheezing Physical Exam Vital Signs: Last Vital Signs Pulse 62 11/09/23 08:40 BP 132/58 L 11/09/23 08:40 Pulse Ox 100 11/09/23 08:40 Oxygen Delivery Method Nasal Cannula 11/09/23 08:40 Oxygen Flow Rate 2 11/09/23 08:40 BMI result Body Mass Index 26.9 Const General: cooperative, healthy appearing, comfortable, no acute distress, well developed and alert Nutritional Appearance: obese Orientation/consciousness: patient oriented x3 Limitations: ambulation with cane HEENT Head: Yes normal to inspection, Yes normocephalic and Yes atraumatic Ears: hearing grossly normal bilaterally and external ears normal Eyes General: appearance normal, both eyes and all related structures Eyelids: Yes eyelids normal Sclerae: sclerae normal EOM: EOMs intact bilaterally Neck Neck: Yes normal visual inspection and Yes no lymphadenopathy Lymphatic: no lymphadenopathy noted Chest Chest palpation & inspection: normal inspection of the chest Resp Other: LLL inspiratory crackles Effort & Inspection: normal respiratory effort, able to speak in complete sentences, no audible wheezes, no cough, no stridor, not tachypneic, no tripod positioning and no use of accessory muscles Auscultation: no wheezes and diminished lung sounds Cardio Jugular venous distension: no JVD Rate: regular rate Rhythm: regular rhythm Skin Other: warm, dry General skin exam: no rashes or lesions noted Neuro General: patient oriented x3 Cranial nerves: Yes Normal hearing present Cognition (Neuro): normal cognition Gait exam (Neuro): Normal gait present Extrem Other: 1+ pitting edema BLE Psych Appearance: grossly normal and well kempt Speech and movement: Normal speech and movement present and Clear speech present Affect: normal affect Attitude: cooperative Thought process: Normal thought process present Thought content: Normal thought content present Insight: Good insight present (Psych) Judgement: Good judgement present (Psych) Assessment & Plan Assessment & Plan (1) COPD (chronic obstructive pulmonary disease): Code(s): J44.9 - Chronic obstructive pulmonary disease, unspecified Category: Medical Qualifiers: COPD type: unspecified COPD Qualified Code(s): J44.9 - Chronic obstructive pulmonary disease, unspecified (2) Oxygen dependent: Code(s): Z99.81 - Dependence on supplemental oxygen Category: Medical (3) CHF (congestive heart failure): Code(s): I50.9 - Heart failure, unspecified Category: Medical Qualifiers: Heart failure chronicity: chronic Heart failure type: diastolic Qualified Code(s): I50.32 - Chronic diastolic (congestive) heart failure (4) Daytime somnolence: Code(s): R40.0 - Somnolence Category: Medical Plan Encouraged patient to use Advair continuously to obtain optimal effects. She is currently using 2 L supplemental oxygen and is questioning when she can discontinue. Will schedule nurse's visit for 6MWT. Family is unsure if they should continue 100 mg , lasix daily, will reach out to cardiology to clarify dose. She continues to have 1-2+ pitting edema, however lungs sound clear today. Will send for repeat chest CT to assess for resolution of PNA in 8-10 weeks. Reviewed overnight oximetry which revealed possible sleep disorder due to number of oxygen desaturation events, will send for in lab PSG. All questions were answered and patient is in agreement of plan. Will follow up to review results or sooner if needed. Orders: Orders RT PSG in-lab sleep study Today G47.34 - Idiopathic sleep related nonobstructive alveolar hypoventilation, R40.0 - Somnolence CT chest wo IV con 6 Weeks Z87.01 - Personal history of pneumonia (recurrent) Coding Level of Care Code Est Pt Level 4 (03450) Diagnoses Chronic obstructive pulmonary disease, unspecified COPD type J44.9 COPD type: unspecified COPD Oxygen dependent Z99.81 Chronic diastolic congestive heart failure I50.32 Heart failure chronicity: chronic Heart failure type: diastolic Daytime somnolence R40.0
[2023-11-09 08:40] VITALS: BP 132/58; PULSE 62; O2SAT 100; BMI 26.9
== END 2023-11-09 09:09 | disposition home or self-care (01) ==
PROVIDERS: PCP Internal Medicine; Visit Provider Nurse Practitioner Family
DX: J44.9 Chronic obstructive pulmonary disease, unspecified (principal); Z99.81 Dependence on supplemental oxygen; I50.32 Chronic diastolic (congestive) heart failure; R40.0 Somnolence
CPT/HCPCS: 99214

== ENCOUNTER → 2023-11-09 08:36 | Outpatient (BNVA) | payer OTHER, SELFPAY | PROVIDERS: PCP Internal Medicine; Visit Provider Nurse Practitioner Family | DX: J44.9 Chronic obstructive pulmonary disease, unspecified (principal); G47.34 Idiopathic sleep related nonobstructive alveolar hypoventilation; I50.32 Chronic diastolic (congestive) heart failure; R40.0 Somnolence; Z87.01 Personal history of pneumonia (recurrent); Z87.891 Personal history of nicotine dependence; Z99.81 Dependence on supplemental oxygen | CPT/HCPCS: 99212 ==

== ENCOUNTER → 2023-12-12 23:59 | Outpatient (BNV) | payer OTHER, SELFPAY ==
--- NOTE | 2023-12-15 15:25 | A.OFFVIS_ITS ---
Intake Visit Reasons: Remote device check- [facility] Allergies egg [EGG] Adverse Reaction (Intermediate, Verified 11/09/23 08:44) DIARRHEA oats [OATS] Adverse Reaction (Intermediate, Verified 11/09/23 08:44) DIARRHEA FROM OATMEAL Pioglitazone HCl Adverse Reaction (Intermediate, Uncoded 11/09/23 08:44) edema PENDING SALE TO [facility] Medical History (Updated 11/09/23 @ 12:19 by Phuong Acharya NP) Acute and chronic respiratory failure CHF exacerbation COPD exacerbation Acute kidney failure Acute on chronic heart failure with preserved ejection fraction (HFpEF) Acute on chronic combined systolic (congestive) and diastolic (congestive) heart failure Acute hypoxemic respiratory failure Acute on chronic diastolic (congestive) heart failure Hearing loss CHF (congestive heart failure) Iron deficiency anemia Left hemiparesis Cardiac pacemaker in situ Diastolic dysfunction Ear discomfort Otitis media Moderate asthma Pure hypercholesterolemia Osteoporosis B12 deficiency Gallstones GERD (gastroesophageal reflux disease) Hypovitaminosis D History of stroke Diabetes mellitus Essential hypertension Surgical History History of pacemaker Family History Father No problems noted. Mother No problems noted. Social History Household Members: Family Housing: House Housing Other:: lives with daughter Are you a primary menagerie caretaker to a significant other at home: No Do you presently have visiting nurse or other home services: Yes (PT and Nursing) Alcohol intake: never Patient Tobacco Use Status: Former Tobacco user Tobacco use type: Cigarette e-Cigarette/Vaping Use: Never Used Second Hand Smoke Exposure: No Advance Directives Date on File: 07/02/21 service: No Current occupational status: disabled Cognitive needs: Yes (walker) Hearing needs: No Vision needs: Yes (glasses) Office Procedures Cardiac Device Check Cardiac Device Check Details: Remote pacemaker report generated 12/12/2023. Pacemaker function is adequate [id number] Cardiac Device Interrogation, pacemaker Procedure code (CPT) selection complete Assessment & Plan Assessment & Plan (1) Cardiac pacemaker in situ: Code(s): Z95.0 - Presence of cardiac pacemaker Category: Medical Plan: See above Coding Level of Care Code Procedure Only Diagnoses Cardiac pacemaker in situ Z95.0 CPT Codes Cardiac Device Check - Cardiac Device 12: [id number] Cardiac Device Interrogation, pacemaker ([id number])
== END ==
PROVIDERS: PCP Internal Medicine; Visit Provider Internal Medicine Cardiovascular Disease
DX: Z95.0 Presence of cardiac pacemaker (principal)
CPT/HCPCS: 93294

== ENCOUNTER 2023-12-22 08:46 | Outpatient (AMB) | payer OTHER, SELFPAY ==
--- NOTE | 2023-12-22 08:52 | MHC.OFFVIS ---
Vital Signs 12/22/23 08:53 Height 5 ft 2 in Weight 145 lb 8.081 oz BMI 26.6 BP 124/72 Blood Pressure Location Lt brachial Position Sitting Pulse 66 Intake Visit Reasons: 3m follow up Intake Note: 3 month follow-up with [facility] check feeling good Upstream Biomanufacturing Technician Required: Yes Upstream Biomanufacturing Technician Services: Upstream Biomanufacturing Technician Offered & Declined Linux System Administrator: Linux System Administrator Present Accompanied by: daughter in law Allergies egg [EGG] Adverse Reaction (Intermediate, Verified 11/09/23 08:44) DIARRHEA oats [OATS] Adverse Reaction (Intermediate, Verified 11/09/23 08:44) DIARRHEA FROM OATMEAL Pioglitazone HCl Adverse Reaction (Intermediate, Uncoded 11/09/23 08:44) edema Medication List - Last Reconciled 12/22/23 by Bryn Newell MD albuterol sulfate 90 mcg/actuation (Ventolin HFA) 2 puffs inhalation Q6H PRN 30 days alendronate (Fosamax) 70 mg PO SHAW@0900 amlodipine 10 mg PO DAILY atorvastatin 80 mg PO DAILY benzonatate 100 mg PO TID PRN blood sugar diagnostic (FreeStyle Lite Strips) Use 1 test strip once a day blood sugar diagnostic (FreeStyle Lite Strips) Use 1 test strip once a day blood-glucose meter (FreeStyle Tilden Lite kit) As directed cetirizine 10 mg (10 mL) PO DAILY PRN 30 days citalopram 20 mg PO DAILY 90 days compr.stocking,knee,long,large As directed cyanocobalamin (vitamin B-12) (Vitamin B-12) 1,000 mcg PO MOWEFR@0900 dicyclomine 20 mg PO TID 30 days doxazosin (Cardura) 2 mg PO DAILY empagliflozin (Jardiance) 10 mg PO DAILY ergocalciferol (vitamin D2) (Vitamin D2) 1,250 mcg PO SHAW@0900 ferrous sulfate (iron) 325 mg PO DAILY 90 days fluticasone propion-salmeterol 115-21 mcg/actuation (Advair HFA) 2 puffs inhalation Q12H folic acid 1 mg PO DAILY 90 days furosemide 80 mg PO DAILY furosemide (Lasix) 20 mg PO DAILY guaifenesin ER (Mucinex) 600 mg PO BID 5 days hospital bed As directed hydralazine 100 mg PO BID hydrocortisone 1% (Anti-Itch (hydrocortisone)) 1 appl topical BID PRN 2 weeks levalbuterol HCl 1.25 mg (3 mL) inhalation Q4-6H PRN lidocaine 5% 1 patch topical DAILY 30 days loratadine 10 mg PO DAILY losartan 25 mg PO DAILY magnesium oxide 500 mg PO DAILY 30 days meclizine 25 mg PO TID PRN 30 days metformin ER 1,000 mg (2 x 500 mg) PO DAILY 90 days metoprolol succinate ER 100 mg PO DAILY 90 days niacin ER 500 mg PO BEDTIME 90 days omeprazole 20 mg PO DAILY@0630 oxybutynin chloride ER 10 mg PO DAILY promethazine 25 mg PO TID PRN 30 days HPI Comments Details: Nedra comes for follow-up. She is followed by her daughter. 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 Declined a certified credit collections clerk. Patient has been doing well. No significant orthopnea, PND, leg edema. Leg edema is improved with increase diuretics for brief period of time as well as Jardiance therapy. She does get short of breath when she walks out but she does not exercise much. She has to use oxygen at nighttime. She does not use oxygen while she is resting at home and as per the daughter oxygen saturations are okay. She had Xarelto doing well. [facility] Medical History Acute and chronic respiratory failure CHF exacerbation COPD exacerbation Acute kidney failure Acute on chronic heart failure with preserved ejection fraction (HFpEF) Acute on chronic combined systolic (congestive) and diastolic (congestive) heart failure Acute hypoxemic respiratory failure Acute on chronic diastolic (congestive) heart failure Hearing loss CHF (congestive heart failure) Iron deficiency anemia Left hemiparesis Cardiac pacemaker in situ Diastolic dysfunction Ear discomfort Otitis media Moderate asthma Pure hypercholesterolemia Osteoporosis B12 deficiency Gallstones GERD (gastroesophageal reflux disease) Hypovitaminosis D History of stroke Diabetes mellitus Essential hypertension Surgical History History of pacemaker Family History Father No problems noted. Mother No problems noted. Social History Household Members: Family Housing: House Housing Other:: lives with daughter Are you a primary janitor caretaker to a significant other at home: No Do you presently have visiting nurse or other home services: Yes (PT and Nursing) Alcohol intake: never Patient Tobacco Use Status: Former Tobacco user Tobacco use type: Cigarette e-Cigarette/Vaping Use: Never Used Second Hand Smoke Exposure: No Advance Directives Date on File: 07/02/21 service: No Current occupational status: disabled Cognitive needs: Yes (walker) Hearing needs: No Vision needs: Yes (glasses) Review of Systems Const Denies chills, Denies fatigue, Denies fever(s), Denies frequent falls, Denies weakness, Denies weight gain and Denies weight loss ENT Denies dizziness Card Denies chest pain, Denies leg edema, Denies lightheadedness, Denies palpitations, Denies dyspnea, Denies dyspnea on exertion, Denies orthopnea and Denies other (loss of consciousness) Resp Denies cough, Denies dyspnea and Denies dyspnea on exertion GI Denies hematochezia and Denies change in stool character Musc Denies abnormal gait, Denies muscle weakness, Denies numbness, Denies radiating pain into limb and Denies tingling Neuro Denies abnormal gait, Denies dizziness, Denies frequent falls, Denies numbness, Denies tingling and Denies weakness Endo Denies fatigue and Denies palpitations Physical Exam Vital Signs: Last Vital Signs Pulse 66 12/22/23 08:53 BP 124/72 12/22/23 08:53 BMI result Body Mass Index 26.6 Const General: cooperative, comfortable, no acute distress, alert and awake Nutritional Appearance: obese Orientation/consciousness: patient oriented x3 Limitations: ambulation with cane Neck Neck: Yes trachea midline, Yes supple and Yes JVD Resp Effort & Inspection: normal respiratory effort Auscultation: clear to auscultation bilaterally Cardio Jugular venous distension: JVD Palpation: normal PMI Rate: regular rate Rhythm: regular rhythm Heart sounds: S1 normal heart sound present, S2 normal heart sound present, no click, no gallops, no murmurs and Other heart sounds present (Soft S4 present) GI Auscultation: normal bowel sounds Skin General skin exam: no rashes or lesions noted Neuro General: patient oriented x3 and no focal motor deficits Extrem General: No clubbing, No cyanosis and Yes edema Psych Appearance: grossly normal Office Procedures Cardiac Device Check Cardiac Device Check Details: Dual-chamber [facility] [place] [facility] pacemaker in place. Programmed in DDDR at 60 beats per minute. Atrial pacing 43% time. No arrhythmias detected. Atrial ventricular capture thresholds adequate and in our capture mode. Atrial ventricular sensing is adequate. Pacing lead impedance is stable. Battery life is 1 and half years [id number] Cardiac Device Check, pacemaker dual lead Procedure code (CPT) selection complete Assessment & Plan Assessment & Plan (1) CHF (congestive heart failure): Code(s): I50.9 - Heart failure, unspecified Category: Medical Qualifiers: Heart failure chronicity: chronic Heart failure type: diastolic Qualified Code(s): I50.32 - Chronic diastolic (congestive) heart failure Plan: Heart failure preserved ejection fraction, clinically euvolemic and well compensated current diuretic dose as well as Jardiance therapy. Importance of continue diuretic therapy. Daily weight monitoring avoidance salt loading was discussed additional diuretics as need be. Continue Jardiance therapy as neurohormonal modulator. Continue aggressive blood pressure control. Continue oxygen therapy for COPD as needed to prevent further worsening of her right-sided function. This was discussed with her. Increase activity level was suggested. (2) Cardiac pacemaker in situ: Code(s): Z95.0 - Presence of cardiac pacemaker Category: Medical Plan: Cardiac pacemaker in-situ, working well. Reprogrammed for adequate function. Will follow remotely in 3 months. Follow up in the clinic in 6 months time. Will follow up in the clinic in 6 months time, sooner p.r.n.. Thank you for allowing me to partake in his care Medications: Changed From furosemide 100 mg (1.25 x 80 mg) PO DAILY 30 days 38 tabs 4RF To furosemide 80 mg PO DAILY Coding Level of Care Code Est Pt Level 4 (95241) Complex EM visit Add On G2211 Diagnoses Chronic diastolic congestive heart failure I50.32 Heart failure chronicity: chronic Heart failure type: diastolic Cardiac pacemaker in situ Z95.0 CPT Codes Cardiac Device Check - Cardiac Device 2: [id number] Cardiac Device Check, pacemaker dual lead ([id number])
[2023-12-22 08:53] VITALS: BP 124/72; PULSE 66; BMI 26.6
== END 2023-12-22 09:14 | disposition home or self-care (01) ==
PROVIDERS: PCP Internal Medicine; Visit Provider Internal Medicine Cardiovascular Disease
DX: I50.32 Chronic diastolic (congestive) heart failure (principal); Z95.0 Presence of cardiac pacemaker
CPT/HCPCS: 93280; 99214; G2211

== ENCOUNTER → 2023-12-22 08:46 | Outpatient (BNVA) | payer OTHER, SELFPAY | PROVIDERS: PCP Internal Medicine; Visit Provider Internal Medicine Cardiovascular Disease | DX: Z45.018 Encounter for adjustment and management of other part of cardiac pacemaker (principal); I50.32 Chronic diastolic (congestive) heart failure | CPT/HCPCS: 93280; 99212 ==

== ENCOUNTER 2024-02-08 08:45 | Outpatient (AMB) | payer OTHER, SELFPAY ==
--- NOTE | 2024-02-08 08:48 | A.OFFVIS_ITS ---
Vital Signs 02/08/24 08:54 Height 5 ft 2 in Weight 146 lb 6 oz BMI 26.8 BP 126/58 L Blood Pressure Location Rt brachial Position Sitting Pulse 61 Pulse Source Pulse Oximeter Pulse Oximetry (%) 99 Oxygen Delivery Method Nasal Cannula Oxygen Flow Rate 2 Intake Visit Reasons: COPD Allergies egg [EGG] Adverse Reaction (Intermediate, Verified 02/08/24 08:57) DIARRHEA oats [OATS] Adverse Reaction (Intermediate, Verified 02/08/24 08:57) DIARRHEA FROM OATMEAL Pioglitazone HCl Adverse Reaction (Intermediate, Uncoded 02/08/24 08:57) edema HPI HPI COPD: Details: Nedra is a pleasant 78 year old female, former smoker, with 60+ pack year history, quit 5 years ago with underlying COPD, asthma, HTN, DMII, diastolic dysfunction s/p pacer and CVA with left-sided residual hemiparesis. She is accompanied by her [id number] today. She has been well controlled on Adva ir, requiring albuterol MDI infrequently. She has been using 2L NOC and 2L with exertion, maintaining O2 saturation at home reportedly >92%. She reports very infrequent dry cough, and overall improvements in dyspnea since the last visit. She denies wheezing or chest tightness. She denies any visits to urgent care or hospitalizations related to respiratory distress since the last visit. An order was placed for sleep study and chest CT however patient declined. [facility] Medical History Acute and chronic respiratory failure CHF exacerbation COPD exacerbation Acute kidney failure Acute on chronic heart failure with preserved ejection fraction (HFpEF) Acute on chronic combined systolic (congestive) and diastolic (congestive) heart failure Acute hypoxemic respiratory failure Acute on chronic diastolic (congestive) heart failure Hearing loss CHF (congestive heart failure) Iron deficiency anemia Left hemiparesis Cardiac pacemaker in situ Diastolic dysfunction Ear discomfort Otitis media Moderate asthma Pure hypercholesterolemia Osteoporosis B12 deficiency Gallstones GERD (gastroesophageal reflux disease) Hypovitaminosis D History of stroke Diabetes mellitus Essential hypertension Surgical History History of pacemaker Family History Father No problems noted. Mother No problems noted. Social History Household Members: Family Housing: House Housing Other:: lives with daughter Are you a primary animal care supervisor to a significant other at home: No Do you presently have visiting nurse or other home services: Yes (PT and Nursing) Alcohol intake: never Patient Tobacco Use Status: Former Tobacco user Tobacco use type: Cigarette e-Cigarette/Vaping Use: Never Used Second Hand Smoke Exposure: No Advance Directives Date on File: 07/02/21 service: No Current occupational status: disabled Cognitive needs: Yes (walker) Hearing needs: No Vision needs: Yes (glasses) Review of Systems Const Denies chills, Denies excessive sweating, Denies fever(s), Denies headache(s) and Denies night sweats Eyes Denies dry eyes, Denies irritation and Denies itchy eyes ENT Reports Normal hearing present, Denies headache(s), Denies nasal congestion, Denies nasal discharge, Denies post nasal drip and Denies sore throat Card Denies chest pain, Denies chest pain at rest, Denies chest pain with activity, Denies claudication, Denies leg edema, Reports dyspnea on exertion, Denies orthopnea and Denies paroxysmal nocturnal dyspnea Resp Denies chest congestion, Reports cough, Denies hemoptysis, Denies excessive phlegm production, Denies pain on inspiration, Denies pain with cough, Reports dyspnea on exertion and Denies stridor Musc Denies myalgias Neuro Reports Normal hearing present and Denies headache(s) Endo Denies excessive sweating Eric/Lymph Denies lymphadenopathy Aller/Immun Denies itchy eyes and Denies seasonal rhinorrhea Physical Exam Vital Signs: Last Vital Signs Pulse 61 02/08/24 08:54 BP 126/58 L 02/08/24 08:54 Pulse Ox 99 02/08/24 08:54 Oxygen Delivery Method Nasal Cannula 02/08/24 08:54 Oxygen Flow Rate 2 02/08/24 08:54 BMI result Body Mass Index 26.8 Const General: cooperative, healthy appearing, comfortable, no acute distress, well developed and alert Nutritional Appearance: obese Orientation/consciousness: patient oriented x3 Limitations: ambulation with cane HEENT Head: Yes normal to inspection, Yes normocephalic and Yes atraumatic Ears: hearing grossly normal bilaterally and external ears normal Eyes General: appearance normal, both eyes and all related structures Eyelids: Yes eyelids normal Sclerae: sclerae normal EOM: EOMs intact bilaterally Neck Neck: Yes normal visual inspection and Yes no lymphadenopathy Lymphatic: no lymphadenopathy noted Chest Chest palpation & inspection: normal inspection of the chest Resp Effort & Inspection: normal respiratory effort, able to speak in complete sente nces, no audible wheezes, no cough, no stridor, not tachypneic, no tripod positioning and no use of accessory muscles Auscultation: no wheezes and diminished lung sounds Cardio Jugular venous distension: no JVD Rate: regular rate Rhythm: regular rhythm Skin Other: warm, dry General skin exam: no rashes or lesions noted Neuro General: patient oriented x3 Cranial nerves: Yes Normal hearing present Cognition (Neuro): normal cognition Gait exam (Neuro): Normal gait present Extrem Other: trace pitting edema BLE Psych Appearance: grossly normal and well kempt Speech and movement: Normal speech and movement present and Clear speech present Affect: normal affect Attitude: cooperative Thought process: Normal thought process present Thought content: Normal thought content present Insight: Good insight present (Psych) Judgement: Good judgement present (Psych) Assessment & Plan Assessment & Plan (1) COPD (chronic obstructive pulmonary disease): Code(s): J44.9 - Chronic obstructive pulmonary disease, unspecified Category: Medical Qualifiers: COPD type: unspecified COPD Qualified Code(s): J44.9 - Chronic obstructive pulmonary disease, unspecified (2) Oxygen dependent: Code(s): Z99.81 - Dependence on supplemental oxygen Category: Medical (3) CHF (congestive heart failure): Code(s): I50.9 - Heart failure, unspecified Category: Medical Qualifiers: Heart failure chronicity: chronic Heart failure type: diastolic Qualif ied Code(s): I50.32 - Chronic diastolic (congestive) heart failure (4) Daytime somnolence: Code(s): R40.0 - Somnolence Category: Medical Plan Nedra has been doing well on Advair and albuterol MDI, encouraged to continue. We again reviewed overnight oximetry which revealed possible sleep disorder due to number of oxygen desaturation events, with recommendation for in lab PSG, however she declined. Encouraged patient to continue to use 2L NOC and 2L with exertion. She also declined scheduling chest CT, agreeable to obtain CXR to assess resolution or prior PNA. All questions were answered and patient is in agreement of plan. Will follow up in three months or sooner if needed. Orders: Orders XR chest 2V Today R05.9 - Cough, unspecified Medications: Refilled albuterol sulfate 90 mcg/actuation (Ventolin HFA) 2 puffs inhalation Q6H PRN 6.7 grams 1RF bronchospasm 30 days fluticasone propion-salmeterol 115-21 mcg/actuation (Advair HFA) 2 puffs inhalation Q12H 12 grams 6RF Coding Level of Care Code Est Pt Level 4 (54157) Diagnoses Chronic obstructive pulmonary disease, unspecified COPD type J44.9 COPD type: unspecified COPD Oxygen dependent Z99.81 Chronic diastolic congestive heart failure I50.32 Heart failure chronicity: chronic Heart failure type: diastolic Daytime somnolence R40.0
[2024-02-08 08:54] VITALS: BP 126/58; PULSE 61; O2SAT 99; BMI 26.8
== END 2024-02-08 09:15 | disposition home or self-care (01) ==
PROVIDERS: PCP Internal Medicine; Visit Provider Nurse Practitioner Family
DX: J44.9 Chronic obstructive pulmonary disease, unspecified (principal); Z99.81 Dependence on supplemental oxygen; I50.32 Chronic diastolic (congestive) heart failure; R40.0 Somnolence
CPT/HCPCS: 99214

== ENCOUNTER → 2024-02-08 08:45 | Outpatient (BNVA) | payer OTHER, SELFPAY | PROVIDERS: PCP Internal Medicine; Visit Provider Nurse Practitioner Family | DX: J44.9 Chronic obstructive pulmonary disease, unspecified (principal); I11.0 Hypertensive heart disease with heart failure; I50.32 Chronic diastolic (congestive) heart failure; R40.0 Somnolence; Z87.891 Personal history of nicotine dependence; Z95.0 Presence of cardiac pacemaker; Z99.81 Dependence on supplemental oxygen | CPT/HCPCS: 99212 ==

== ENCOUNTER → 2024-03-10 23:59 | Outpatient (BNV) | payer OTHER, SELFPAY ==
--- NOTE | 2024-03-15 16:24 | MHC.OFFVIS ---
Intake Visit Reasons: Remote device check- [facility] Allergies egg [EGG] Adverse Reaction (Intermediate, Verified 02/08/24 08:57) DIARRHEA oats [OATS] Adverse Reaction (Intermediate, Verified 02/08/24 08:57) DIARRHEA FROM OATMEAL Pioglitazone HCl Adverse Reaction (Intermediate, Uncoded 02/08/24 08:57) edema [facility] Medical History Acute and chronic respiratory failure CHF exacerbation COPD exacerbation Acute kidney failure Acute on chronic heart failure with preserved ejection fraction (HFpEF) Acute on chronic combined systolic (congestive) and diastolic (congestive) heart failure Acute hypoxemic respiratory failure Acute on chronic diastolic (congestive) heart failure Hearing loss CHF (congestive heart failure) Iron deficiency anemia Left hemiparesis Cardiac pacemaker in situ Diastolic dysfunction Ear discomfort Otitis media Moderate asthma Pure hypercholesterolemia Osteoporosis B12 deficiency Gallstones GERD (gastroesophageal reflux disease) Hypovitaminosis D History of stroke Diabetes mellitus Essential hypertension Surgical History History of pacemaker Family History Father No problems noted. Mother No problems noted. Social History Household Members: Family Housing: House Housing Other:: lives with daughter Are you a primary manager career to a significant other at home: No Do you presently have visiting nurse or other home services: Yes (PT and Nursing) Alcohol intake: never Patient Tobacco Use Status: Former Tobacco user Tobacco use type: Cigarette e-Cigarette/Vaping Use: Never Used Second Hand Smoke Exposure: No Advance Directives Date on File: 07/02/21 service: No Current occupational status: disabled Cognitive needs: Yes (walker) Hearing needs: No Vision needs: Yes (glasses) Office Procedures Cardiac Device Check Cardiac Device Check Details: Remote pacemaker report generated 03/12/2024. Pacemaker function is adequate [id number] Cardiac Device Interrogation, pacemaker Procedure code (CPT) selection complete Assessment & Plan Assessment & Plan (1) Cardiac pacemaker in situ: Code(s): Z95.0 - Presence of cardiac pacemaker Category: Medical Plan: See above Coding Level of Care Code Procedure Only Diagnoses Cardiac pacemaker in situ Z95.0 CPT Codes Cardiac Device Check - Cardiac Device 12: [id number] Cardiac Device Interrogation, pacemaker ([id number])
== END ==
PROVIDERS: PCP Internal Medicine; Visit Provider Internal Medicine Cardiovascular Disease
DX: Z45.018 Encounter for adjustment and management of other part of cardiac pacemaker (principal)
CPT/HCPCS: 93294

== ENCOUNTER 2024-05-01 10:15 | Emergency (ER) | payer OTHER, SELFPAY ==
--- NOTE | ~2024-05-01 | XR_ITS ---
EXAMINATION: XR KNEE 4 OR MORE VIEWS LEFT HISTORY: fall, knee pain COMPARISON: There are no prior studies available for comparison. FINDINGS: Four views of the left knee are submitted. Osseous mineralization is normal. There is no fracture or dislocation. The joint spaces are preserved. There are vascular calcifications. There is no joint effusion. XR/XR knee LT 4V IMPRESSION: No evidence of fracture of the left knee. Electronically signed by: Prashanth Potter MD 05/01/2024 12:28 PM [facility]
--- NOTE | ~2024-05-01 | CT_ITS ---
EXAMINATION: CT CERVICAL SPINE WITHOUT CONTRAST CLINICAL INFORMATION: Status post fall. COMPARISON: None available. TECHNIQUE: Contiguous axial images through the cervical spine using 3 mm collimation with bone and soft tissue algorithm. Sagittal and coronal reformatted images acquired. This CT examination was performed using dose optimization techniques as appropriate, variously including the following: *Automated exposure control *Adjustment of mA and/or kV according to patient size (this includes techniques or standardized protocols for targeted exams where dose is matched to indication/reason for exam; i.e. extremities or head) *Use of iterative reconstruction technique DLP: 322.25 mGy centimeter. FINDINGS: Craniocervical junction is intact. Degenerative changes in the periodontal C1 region. Marginal osteophyte formation at C5-6 and C6-7 levels with well-corticated desiccation seen the anterior aspect of the intervertebral discs. Bilateral facet joint hypertrophy more conspicuous at C4-5, C5-6 levels. 1 mm anterolisthesis C4-5. C1 is intact. C2 is intact. C3 is intact. C4 is intact. C5 is intact. C6 is intact. C7 is intact. No prevertebral compartment hematoma. Calcified plaques in the carotic arteries. There are electrode leads partially identified in the left supraclavicular notch. Bilateral apical lung scarring with a nodular morphology pattern in the left lung apex. CT/CT cervical spine wo IV con IMPRESSION: Multilevel cervical spondylosis without acute fracture or trauma-related listhesis. Fleischner guidelines were followed. Electronically signed by: Damian Calles MD 05/01/2024 01:55 PM [facility]
--- NOTE | ~2024-05-01 | XR_ITS ---
EXAMINATION: XR HIP 1 VIEW LEFT WITH PELVIS HISTORY: fall hip pain COMPARISON: There are no prior studies for comparison. FINDINGS: A single AP view of the pelvis and two views of the left hip are submitted. Osseous mineralization is normal. There is no fracture or dislocation. The joint space is maintained. There are vascular calcifications. XR/XR hip LT w PEL1V IMPRESSION: No evidence of fracture of the left hip. Electronically signed by: Prashanth Potter MD 05/01/2024 12:24 PM [facility]
--- NOTE | ~2024-05-01 | CT_ITS ---
EXAMINATION: CT HEAD WITHOUT CONTRAST CLINICAL INFORMATION: fall unknown head strike COMPARISON: July 01, 2021. TECHNIQUE: Contiguous axial imaging was performed from the skull base to vertex without intravenous administration of contrast. This CT examination was performed using dose optimization techniques as appropriate, variously including the following: *Automated exposure control *Adjustment of mA and/or kV according to patient size (this includes techniques or standardized protocols for targeted exams where dose is matched to indication/reason for exam; i.e. extremities or head) *Use of iterative reconstruction technique DLP: 565.91 mGy-cm FINDINGS: The bony calvarium is intact. The skull base is intact. There is small exostosis at the frontal bone. No acute intracranial hemorrhage, mass effect, midline shift, hydrocephalus or herniation. Herbert-white matter differentiation is normal. There is right occipital encephalomalacia with ex vacuo dilatation of the occipital horn. There is a focal encephalomalacia, right temporoparietal. Bilateral multifocal patchy deep periventricular white matter hypodensity. Sellar/suprasellar region demonstrated no gross masses. Craniocervical junction is intact. Tympanic cavities and mastoid air cells are aerated. No air-fluid levels in the included paranasal sinuses. CT/CT head/brain wo IV con IMPRESSION: No acute fracture, bony calvarium. No acute intracranial hemorrhage. Small vessel occlusive disease and prior vascular insults involving the right [employer] and likely posterior branches right MCA territory. Electronically signed by: Damian Calles MD 05/01/2024 01:21 PM [facility]
--- NOTE | ~2024-05-01 | CT_ITS ---
EXAMINATION: CT CHEST WITHOUT IV CONTRAST INDICATION: right rib pain s/p fall COMPARISON: Comparison is made with the prior examination dated 08/26/2023. TECHNIQUE: Helical CT scan of the chest was performed without intravenous contrast. Coronal and sagittal reformatted images were generated and reviewed. This CT exam was performed with one or more of the following dose reduction techniques: automated exposure control, adjustment of the mA and/or kV according to patient size, use of iterative reconstruction technique. DLP: 298.31 mGy-cm CHEST: The examination is limited by patient respiratory motion artifact. THYROID: The thyroid is unremarkable. LUNGS: Again seen is nodular scarring at the right lung apex. There is an irregularly-shaped to airspace opacity at the medial aspect of the left lung apex measuring 2.3 x 1.8 x 1.7 cm which was not present previously. MEDIASTINUM: There is no mediastinal lymphadenopathy. MEDARDO: Evaluation of the hilar regions is limited by lack of intravenous contrast material. CARDIOVASCULATURE: The heart is enlarged. A pacemaker is seen in place. There is no pericardial effusion. The thoracic aorta is normal in caliber. DEGREE OF CORONARY CALCIFICATION: severe PLEURA: There is no pleural effusion. No pneumothorax. MAIN AIRWAYS: The mainstem bronchi and proximal branches are patent. AXILLA: There is no axillary lymphadenopathy. BONES AND SOFT TISSUES: There is a moderate hiatal hernia. No displaced rib fractures seen, although evaluation is limited by respiratory motion artifact. There is a mild compression deformity of T10 without change. UPPER ABDOMEN: The visualized portions of the liver, spleen, and adrenals have an unremarkable unenhanced appearance. CT/CT chest wo IV con IMPRESSION: 1. 2.3 x 1.8 x 1.7 cm irregularly shaped airspace opacity at the medial aspect of the left lung apex. While this could represent pneumonia, neoplasm could also have this appearance. Close follow-up with chest CT in 3 months is recommended. Alternatively, PET/CT scan could be performed. 2. No displaced rib fracture is seen, although evaluation is limited by respiratory motion artifact. Electronically signed by: Prashanth Potter MD 05/01/2024 01:23 PM EST [facility]
--- NOTE | 2024-05-01 11:14 | ED.GENADULT ---
HPI - General Adult General Chief complaint: Fall Stated complaint: fall Time Seen by Provider: 05/01/24 14:24 Source: patient, family (daughter) and corn husker (ecuadorean) Mode of arrival: ambulatory Limitations: language barrier (ecuadorean) History of Present Illness ED Provider: RHONDA DUMONT PA-C HPI narrative: 78-year-old Romanian-speaking female with pmhx significant for DM, CVA, HTN, CHF, COPD/ asthma, anemia, depression, dementia presents to the ED today with her daughter for evaluation s/p unwitnessed fall off of bed overnight Wednesday into Wednesday morning (yesterday). Fall was unwitnessed and daughter found patient on the floor next to her bed around 0200. Unclear down time. She was not on anticoagulation. She assisted patient back into bed. Patient was not medically evaluated at that time. Since this time, reports pain to left knee that radiates into her left hip. She ambulates with a cane and walker at baseline. Her only complaint at present is left knee/left hip pain. Denies headache, dizziness, vision changes, neck pain, back pain. Denies any numbness/tingling/weakness of the lower extremities. Related Data Home Medications ?Medication ?Instructions ?Recorded ?Confirmed ergocalciferol (vitamin D2) 1,250 1,250 mcg PO SHAW@0900 07/20/23 12/22/23 mcg (50,000 unit) capsule (Vitamin D2) Previous Rx's ?Medication ?Instructions ?Recorded blood-glucose meter (FreeStyle #1 ea 01/03/20 [place] Lite kit) promethazine 25 mg tablet 25 mg PO TID PRN nausea and 04/27/22 vomiting 30 days #10 tabs blood sugar diagnostic (FreeStyle #100 ea 02/04/23 Lite Strips) loratadine 10 mg tablet 10 mg PO DAILY #90 caps 04/05/23 cetirizine 5 mg/5 mL oral solution 10 mg (10 mL) PO DAILY PRN allergy 07/11/23 symptoms 30 days #150 mL doxazosin 2 mg tablet (Cardura) 2 mg PO DAILY #30 tabs 07/11/23 folic acid 1 mg tablet 1 mg PO DAILY 90 days #90 tabs 07/11/23 metformin 500 mg tablet,extended 1,000 mg (2 x 500 mg) PO DAILY 90 07/11/23 release 24 hr days #180 tabs lidocaine 5 % topical patch 1 patch topical DAILY 30 days #30 07/19/23 ea meclizine 25 mg tablet 25 mg PO TID PRN dizziness 30 days 07/19/23 #90 tabs hydrocortisone 1 % topical cream 1 appl topical BID PRN skin 08/11/23 (Anti-Itch (hydrocortisone)) irritation 2 weeks #28.4 grams benzonatate 100 mg capsule 100 mg PO TID PRN cough #20 caps 08/28/23 guaifenesin 600 mg tablet, 600 mg PO BID 5 days #10 tabs 08/30/23 extended release 12 hr (Mucinex) levalbuterol HCl 1.25 mg/3 mL 1.25 mg (3 mL) inhalation Q4-6H 09/14/23 solution for nebulization PRN shortness of breath or wheezing #90 mL hospital bed #1 ea 09/22/23 compr.stocking,knee,long,large #12 ea 10/24/23 blood sugar diagnostic (FreeStyle #100 ea 12/24/23 Lite Strips) furosemide 80 mg tablet 80 mg PO DAILY 30 days #30 tabs 01/04/24 albuterol sulfate 90 mcg/actuation 2 puff inhalation Q6H PRN 02/08/24 aerosol inhaler (Ventolin HFA) bronchospasm 30 days #6.7 grams fluticasone propionate 115 2 puff inhalation Q12H #12 grams 02/08/24 mcg-salmeterol 21 mcg/actuation HFA inhaler (Advair HFA) hydralazine 100 mg tablet 100 mg PO BID #180 caps 02/26/24 oxybutynin chloride 10 mg 10 mg PO DAILY #90 caps 02/26/24 tablet,extended release 24 hr citalopram 20 mg tablet 20 mg PO DAILY 90 days #90 tabs 02/27/24 empagliflozin 10 mg tablet 10 mg PO DAILY #30 tabs 02/28/24 (Jardiance) amlodipine 10 mg tablet 10 mg PO DAILY #90 tabs 03/28/24 losartan 25 mg tablet 25 mg PO DAILY #90 caps 03/28/24 atorvastatin 80 mg tablet 80 mg PO DAILY #90 tabs 04/04/24 alendronate 70 mg tablet (Fosamax) 70 mg PO SHAW@0900 #4 tabs 04/24/24 cyanocobalamin (vitamin B-12) 1,000 mcg PO MOWEFR@0900 #12 tabs 04/24/24 1,000 mcg tablet (Vitamin B-12) dicyclomine 20 mg tablet 20 mg PO TID 30 days #90 tabs 04/24/24 ferrous sulfate 325 mg (65 mg 325 mg PO DAILY 90 days #90 tabs 04/24/24 iron) tablet (iron) furosemide 20 mg tablet 20 mg PO DAILY 30 days #30 tabs 04/24/24 magnesium oxide 500 mg capsule 500 mg PO DAILY 30 days #30 caps 04/24/24 metoprolol succinate 100 mg 100 mg PO DAILY 90 days #90 tabs 04/24/24 tablet,extended release 24 hr niacin 500 mg tablet,extended 500 mg PO BEDTIME 90 days #90 tabs 04/24/24 release 24 hr omeprazole 20 mg capsule,delayed 20 mg PO DAILY@0630 #90 caps 04/24/24 release amoxicillin 875 mg-potassium 1 tab PO BID 7 days #14 tabs 05/01/24 clavulanate 125 mg tablet azithromycin 250 mg tablet See Rx Instructions PO .COMPLEX #6 05/01/24 tabs Allergies Allergy/AdvReac Type Severity Reaction Status Date / Time egg [EGG] AdvReac Intermediate DIARRHEA Verified 05/09/24 06:47 oats [OATS] AdvReac Intermediate DIARRHEA Verified 05/09/24 06:47 FROM OATMEAL Pioglitazone HCl AdvReac Intermediate edema Uncoded 05/09/24 06:47 Review of Systems Review of Systems: Yes all other systems are reviewed and are negative PMFSH Past Medical History Attestation statement: The following information was validated with the patient. Source: old records reviewed, obtained from family (Daughter) and nursing notes reviewed Medical History Acute and chronic respiratory failure CHF exacerbation COPD exacerbation Acute kidney failure Acute on chronic heart failure with preserved ejection fraction (HFpEF) Acute on chronic combined systolic (congestive) and diastolic (congestive) heart failure Acute hypoxemic respiratory failure Acute on chronic diastolic (congestive) heart failure Hearing loss CHF (congestive heart failure) Iron deficiency anemia Left hemiparesis Cardiac pacemaker in situ Diastolic dysfunction Ear discomfort Otitis media Moderate asthma Pure hypercholesterolemia Osteoporosis B12 deficiency Gallstones GERD (gastroesophageal reflux disease) Hypovitaminosis D History of stroke Diabetes mellitus Essential hypertension Surgical History History of pacemaker Family History Family History Father No problems noted. Mother No problems noted. Social History Social History Household Members: Family Housing: House Housing Other:: lives with daughter Are you a primary career center director to a significant other at home: No Do you presently have visiting nurse or other home services: Yes (PT and Nursing) Alcohol intake: never Patient Tobacco Use Status: Former Tobacco user Tobacco use type: Cigarette Smoked in Last 30 Days: No e-Cigarette/Vaping Use: Never Used Second Hand Smoke Exposure: No Use of substances other than those prescribed or required for medical reasons: No Advance Directives: Yes Advance Directives on File: Yes Advance Directives Date on File: 07/02/21 Do you have a plan to hurt others: No Plan service: No Current occupational status: disabled Cognitive needs: Yes (walker) Hearing needs: No Vision needs: Yes (glasses) Physical Exam ED Vital Signs: Vital Signs - 24 hr 05/01/24 11:15 05/01/24 15:10 Temperature 98.4 F 98.4 F Pulse Rate 72 72 Respiratory Rate 26 H 26 H Blood Pressure 108/67 108/67 Pulse Oximetry 97 97 Oxygen Delivery Method Room Air Room Air BMI result Body Mass Index 27.7 Tachypneic to 26, vitals otherwise WNL. Not hypoxic. afebrile. General: Well appearing, in no acute distress. Skin: Warm, dry, intact. No rashes or lesions. Head: Normocephalic, atraumatic. No palpable hematoma or skull fracture. No fowler sign or raccoon eyes. EENT: Hearing is intact b/l. Conjunctiva clear. PERRLA. EOM intact. Moist mucous membranes.? Neck: No midline cervical spinous tenderness or step-off deformity. Cardiac: Chest wall symmetric. RRR Lungs: Normal respiratory effort without accessory muscle use. CTA bilaterally. No rales, rhonchi, or wheezes.? Abdomen: Soft, non-tender, non-distended. No rebound tenderness or guarding. Positive BS x4. Back: No midline spinous or paraspinal tenderness. No step off deformity. Ext: +full ROM intact to left knee without pain. No overlying erythema, deformity or swelling. Mildly tender to palpation of anterior knee without palpable deformity or crepitus. Neurovascularly intact distally. Neuro: AOx2. Normal speech. Course Course Course Narrative: This is a Rapid Medical Examination (RME) performed by Carolina Dumont PA-C in triage. Full HPI, ROS, assessment and treatment plan per primary provider in the Main ED. 78 yo ecuadorean speaking female hx of DM, CVA, HTN, CHF, COPD/ asthma, anemia, depression, dementia here for eval of unwitnessed fall off of bed over night wednesday into wednesday morning (yesterday). unknown head strike. her daughter found her around 0200 yesterday morning. unknown down time. pt complaining of L knee pain rad to left hip. hx of ischemic stroke >10 yrs ago. not on AC. ambulates w/ cane and walker. + ttp of left knee w/o deformity. in wheelchair. gait not assessed. Plan: labs, xr, ct scans Reevaluation(s) Reevaluation #1: CBC without leukocytosis or left shift. No anemia. H&H stable. Chemistry without acute electrolyte abnormality requiring intervention. BUN slightly elevated 24 with normal creatinine. Random glucose 149. Total CK WNL > Unlikely rhabdomyolysis. EKG showing normal sinus rhythm with a rate of 76 beats per minute, no acute ischemic changes or ST elevations. X-ray left hip and left knee unremarkable. No fracture. CT head/brain without acute bleed or skull fracture. CT cervical spine without fracture or subluxation. CTA chest shows nodular scarring to right lung base. There is an irregularly shaped airspace opacity to medial aspect of left lung apex, not present on previous imaging. ? pneumonia versus neoplasm. > discussed case w/ my attending Dr. Zapien. Recommending treatment for pneumonia with planned follow up with PCP for repeat imaging of her chest. > discussed all workup results with patient and her daughter. Will be sending Augmentin and azithromycin to pharmacy for treatment of pneumonia. I stressed the importance of following up with PCP for repeat scans as neoplasm can not be ruled out. Daughter verbalizes understanding. Patient has a follow up appointment with PCP scheduled in a couple of weeks. advised to keep this appointment. Patient has remained stable throughout ED visit today. Discussed worrisome signs and symptoms and when to return to the ED. All questions answered at this time. Patient is agreeable with disposition and stable for discharge. Medical Decision Making Medical Decision Making [facility] Narrative: 78-year-old Romanian-speaking female with pmhx significant for DM, CVA, HTN, CHF, COPD/ asthma, anemia, depression, dementia presents to the ED today with her daughter for evaluation s/p unwitnessed fall off of bed overnight Wednesday into Wednesday morning (yesterday). she is here with her daughter who is assisting with history. vitals are stable. she is nontoxic appearing and in NAD. Differential diagnosis includes ICH, skull fx, msk sprain/strain, contusion Plan for imaging, labs, EKG, re-evaluation. Differential Diagnosis Differential Diagnoses: The differential diagnosis associated with the presentation includes As above Admission/Observation Consideration of admission/observation: Escalation of care including admission/observation considered Not indicated Lab Data [facility] Lab Attestation statement: I reviewed the patient's lab results. As above 05/01/24 11:46 05/01/24 11:46 Labs: Lab Results 05/01/24 Range/Units 11:46 WBC 10.3 (4.8-10.8) X10*3/uL RBC 4.84 (4.20-5.50) X10*6/uL Hgb 12.1 D (12.0-16.0) g/dl Hct 37.7 (37.0-47.0) % MCV 77.9 L (80.0-98.0) fL MCH 25.0 L (27.0-33.0) pg MCHC 32.1 (31.0-35.0) g/dl RDW 16.1 H (11.0-16.0) % Plt Count 197 D (160-400) X10*3/uL MPV 10.2 (9.4-12.3) fL Immature Gran % (Auto) 0.6 H (0.0-0.4) % Neut % (Auto) 67.2 (45-73) % Lymph % (Auto) 21.0 (20-40) % [place] % (Auto) 10.0 (2-11) % Eos % (Auto) 0.8 (0-4) % Baso % (Auto) 0.4 (0-2) % Lymph # (Auto) 2.2 (1.2-4.9) X10*3/uL [place] # (Auto) 1.0 (0.1-1.2) X10*3/uL Eos # (Auto) 0.1 (0.0-0.4) X10*3/uL Baso # (Auto) 0.0 (0.0-0.2) X10*3/uL Abs Immat Gran (auto) 0.06 H (0.00-0.03) X10*3/uL Absolute Neuts (auto) 6.9 (2.0-8.3) x10*3/uL Absolute Nucleated RBC 0.000 (0.0-0.012) X10*3/uL Nucleated RBC % (auto) 0.0 (0.0-0.2) /100WBC Sodium 138 (135-145) mmol/L Potassium 3.5 (3.3-5.1) mmol/L Chloride 100 (96-108) mmol/L Carbon Dioxide 23 (22-29) mmol/L Anion Gap 19 (12-20) BUN 24 H (9-16) mg/dL Creatinine 1.22 (0.5-1.4) mg/dL Estim Creat Clear Calc 32.0 Estimated GFR 42 Random Glucose 149 H (60-115) mg/dL Calcium 9.5 D (8.4-10.2) mg/dL Magnesium 1.7 (1.6-2.6) mg/dL Total Bilirubin 0.7 (0.0-1.0) mg/dL AST 26 (5-31) U/L ALT 16 (0-31) U/L Alkaline Phosphatase 102 (39-117) U/L Total Creatine Kinase 80 (26-140) U/L Total Protein 7.9 (6.5-8.0) g/dL Albumin 3.8 (3.5-5.0) g/dL Independent Interpretation I performed an independent interpretation of an: Plain X-Ray and CT Scan Interpretation: CT head/brain without bleed or skull fracture CT cervical spine without fracture or subluxation CTA chest showing opacity to left lung X-ray pelvis/left hip without fracture X-ray left knee without fracture Radiology Impression Discussion of test interpretation with radiology: I have reviewed the radiologist's reading. Radiologist Impression: Procedure(s): CT chest wo IV con Accession Number(s): [id number] cc: Rhonda Dumont; Yoselyn Figueroa MD~ Report Number: [id number]: Total DLP = 312.00 mGy-cm EXAMINATION: CT CHEST WITHOUT IV CONTRAST INDICATION: right rib pain s/p fall COMPARISON: Comparison is made with the prior examination dated 08/26/2023. TECHNIQUE: Helical CT scan of the chest was performed without intravenous contrast. Coronal and sagittal reformatted images were generated and reviewed. This CT exam was performed with one or more of the following dose reduction techniques: automated exposure control, adjustment of the mA and/or kV according to patient size, use of iterative reconstruction technique. DLP: 298.31 mGy-cm CHEST: The examination is limited by patient respiratory motion artifact. THYROID: The thyroid is unremarkable. LUNGS: Again seen is nodular scarring at the right lung apex. There is an irregularly-shaped to airspace opacity at the medial aspect of the left lung apex measuring 2.3 x 1.8 x 1.7 cm which was not present previously. MEDIASTINUM: There is no mediastinal lymphadenopathy. MEDARDO: Evaluation of the hilar regions is limited by lack of intravenous contrast material. CARDIOVASCULATURE: The heart is enlarged. A pacemaker is seen in place. There is no pericardial effusion. The thoracic aorta is normal in caliber. DEGREE OF CORONARY CALCIFICATION: severe PLEURA: There is no pleural effusion. No pneumothorax. MAIN AIRWAYS: The mainstem bronchi and proximal branches are patent. AXILLA: There is no axillary lymphadenopathy. BONES AND SOFT TISSUES: There is a moderate hiatal hernia. No displaced rib fractures seen, although evaluation is limited by respiratory motion artifact. There is a mild compression deformity of T10 without change. UPPER ABDOMEN: The visualized portions of the liver, spleen, and adrenals have an unremarkable unenhanced appearance. CT/CT chest wo IV con IMPRESSION: 1. 2.3 x 1.8 x 1.7 cm irregularly shaped airspace opacity at the medial aspect of the left lung apex. While this could represent pneumonia, neoplasm could also have this appearance. Close follow-up with chest CT in 3 months is recommended. Alternatively, PET/CT scan could be performed. 2. No displaced rib fracture is seen, although evaluation is limited by respiratory motion artifact. Procedure(s): CT cervical spine wo IV con Accession Number(s): [id number] cc: Rhonda Dumont; Yoselyn Figueroa MD~ Report Number: [id number]: Total DLP = 322.00 mGy-cm EXAMINATION: CT CERVICAL SPINE WITHOUT CONTRAST CLINICAL INFORMATION: Status post fall. COMPARISON: None available. TECHNIQUE: Contiguous axial images through the cervical spine using 3 mm collimation with bone and soft tissue algorithm. Sagittal and coronal reformatted images acquired. This CT examination was performed using dose optimization techniques as appropriate, variously including the following: *Automated exposure control *Adjustment of mA and/or kV according to patient size (this includes techniques or standardized protocols for targeted exams where dose is matched to indication/reason for exam; i.e. extremities or head) *Use of iterative reconstruction technique DLP: 322.25 mGy centimeter. FINDINGS: Craniocervical junction is intact. Degenerative changes in the periodontal C1 region. Marginal osteophyte formation at C5-6 and C6-7 levels with well-corticated desiccation seen the anterior aspect of the intervertebral discs. Bilateral facet joint hypertrophy more conspicuous at C4-5, C5-6 levels. 1 mm anterolisthesis C4-5. C1 is intact. C2 is intact. C3 is intact. C4 is intact. C5 is intact. C6 is intact. C7 is intact. No prevertebral compartment hematoma. Calcified plaques in the carotic arteries. There are electrode leads partially identified in the left supraclavicular notch. Bilateral apical lung scarring with a nodular morphology pattern in the left lung apex. CT/CT cervical spine wo IV con IMPRESSION: Multilevel cervical spondylosis without acute fracture or trauma-related listhesis. Fleischner guidelines were followed. Electronically signed by: Damian Calles MD 05/01/2024 01:55 PM [facility] [place] CT head/brain wo IV con Accession Number(s): [id number] cc: Rhonda Dumont; Yoselyn Figueroa MD~ Report Number: [id number]: Total DLP = 576.00 mGy-cm EXAMINATION: CT HEAD WITHOUT CONTRAST CLINICAL INFORMATION: fall unknown head strike COMPARISON: July 01, 2021. TECHNIQUE: Contiguous axial imaging was performed from the skull base to vertex without intravenous administration of contrast. This CT examination was performed using dose optimization techniques as appropriate, variously including the following: *Automated exposure control *Adjustment of mA and/or kV according to patient size (this includes techniques or standardized protocols for targeted exams where dose is matched to indication/reason for exam; i.e. extremities or head) *Use of iterative reconstruction technique DLP: 565.91 mGy-cm FINDINGS: The bony calvarium is intact. The skull base is intact. There is small exostosis at the frontal bone. No acute intracranial hemorrhage, mass effect, midline shift, hydrocephalus or herniation. Herbert-white matter differentiation is normal. There is right occipital encephalomalacia with ex vacuo dilatation of the occipital horn. There is a focal encephalomalacia, right temporoparietal. Bilateral multifocal patchy deep periventricular white matter hypodensity. Sellar/suprasellar region demonstrated no gross masses. Craniocervical junction is intact. Tympanic cavities and mastoid air cells are aerated. No air-fluid levels in the included paranasal sinuses. CT/CT head/brain wo IV con IMPRESSION: No acute fracture, bony calvarium. No acute intracranial hemorrhage. Small vessel occlusive disease and prior vascular insults involving the right DIAL PAINTER and likely posterior branches right MCA territory. Electronically signed by: Damian Calles MD 05/01/2024 01:21 PM [facility] [place]s): XR knee LT 4V Accession Number(s): [id number] cc: Rhonda Dumont; Yoselyn Figueroa MD~ EXAMINATION: XR KNEE 4 OR MORE VIEWS LEFT HISTORY: fall, knee pain COMPARISON: There are no prior studies available for comparison. FINDINGS: Four views of the left knee are submitted. Osseous mineralization is normal. There is no fracture or dislocation. The joint spaces are preserved. There are vascular calcifications. There is no joint effusion. XR/XR knee LT 4V IMPRESSION: No evidence of fracture of the left knee. Electronically signed by: Prashanth Potter MD 05/01/2024 12:28 PM EST RP Procedure(s): XR hip LT w PEL1V Accession Number(s): [id number] cc: Rhonda Dumont; Yoselyn Figueroa MD~ EXAMINATION: XR HIP 1 VIEW LEFT WITH PELVIS HISTORY: fall hip pain COMPARISON: There are no prior studies for comparison. FINDINGS: A single AP view of the pelvis and two views of the left hip are submitted. Osseous mineralization is normal. There is no fracture or dislocation. The joint space is maintained. There are vascular calcifications. XR/XR hip LT w PEL1V IMPRESSION: No evidence of fracture of the left hip. Electronically signed by: Prashanth Potter MD 05/01/2024 12:24 PM EST RP Independent Historian Clinical information obtained from an independent historian. History obtained from or confirmed by: Other (Daughter) External Record Review External record reviewed: Inpatient record Prescription Management I considered prescription management with: Pain Medication Chronic Conditions Patient?s care impacted by: Other (Dementia) Social Determinants Patient?s care significantly limited by Social Determinants of Health including: Other Social Determinant of Health Critical Care Time Critical Care Time Critical Care Time: No Discharge Plan Discharge Clinical Impression: CAP (community acquired pneumonia), Accident due to mechanical fall without injury Patient Disposition: Home, Self-Care Instructions: Community Acquired Pneumonia (ED) Additional Instructions: You were evaluated in the ED today after a fall. Your blood work and EKG are reassuring. The CT scans of your head/ neck are normal. The CT scan of your chest shows findings concerning for pneumonia. Treatment for this is with antibiotics. I have sent two antibiotics to your pharmacy (azithromycin and augmentin). Take these to completion. Do not skip any doses. On Augmentin, softer bowel movements are to be expected. Call your provider if you move your bowels more than 4 times a day, your bowel movements are almost all liquid, or you get a rash.? As discussed, you need to follow up with your PCP for a repeat CT scan of your chest in three months. Return with new or worsening symptoms. In the case of an emergency call 911. Prescriptions: New amoxicillin-pot clavulanate 875-125 mg tablet 1 tab PO BID 7 Days Qty: 14 0RF azithromycin 250 mg tablet See Rx Instructions .ROUTE .COMPLEX Qty: 6 0RF Rx Instructions: For 250 mg dose pack: take 500 mg today (day 1), then 250 mg for 4 days (days 2-5) No Action (DME) blood-glucose meter [FreeStyle [place] Lite] Kit See Rx Instructions .ROUTE .MEDSUPPLY Qty: 1 0RF Rx Instructions: As directed (DME) FreeStyle Lite Strips Strip See Rx Instructions .Route Qty: 100 1RF Rx Instructions: Use 1 test strip once a day loratadine 10 mg tablet 10 mg PO DAILY Qty: 90 3RF cetirizine 5 mg/5 mL solution 10 mg PO DAILY PRN (Reason: allergy symptoms) 30 Days Qty: 150 0RF doxazosin [Cardura] 2 mg tablet 2 mg PO DAILY Qty: 30 11RF folic acid 1 mg tablet 1 mg PO DAILY 90 Days Qty: 90 3RF metformin 500 mg tablet extended release 24 hr 1,000 mg PO DAILY 90 Days Qty: 180 3RF meclizine 25 mg tablet 25 mg PO TID PRN (Reason: dizziness) 30 Days Qty: 90 0RF lidocaine 5 % adhesive patch,medicated 1 patch topical DAILY 30 Days Qty: 30 0RF Rx Instructions: leave on most painful area for up to 12 hrs guaifenesin [Mucinex] 600 mg tablet extended release 12hr 600 mg PO BID 5 Days Qty: 10 0RF (DME) compr.stocking,knee,long,large Misc See Rx Instructions .Route Qty: 12 11RF Rx Instructions: As directed (DME) FreeStyle Lite Strips Strip See Rx Instructions .Route Qty: 100 1RF Rx Instructions: Use 1 test strip once a day furosemide 80 mg tablet 80 mg PO DAILY 30 Days Qty: 30 6RF oxybutynin chloride 10 mg tablet extended release 24hr 10 mg PO DAILY Qty: 90 0RF hydralazine 100 mg tablet 100 mg PO BID Qty: 180 0RF citalopram 20 mg tablet 20 mg PO DAILY 90 Days Qty: 90 0RF Jardiance 10 mg tablet 10 mg PO DAILY Qty: 30 5RF amlodipine 10 mg tablet 10 mg PO DAILY Qty: 90 0RF losartan 25 mg tablet 25 mg PO DAILY Qty: 90 0RF atorvastatin 80 mg tablet 80 mg PO DAILY Qty: 90 0RF omeprazole 20 mg capsule,delayed release(DR/EC) 20 mg PO DAILY@0630 Qty: 90 0RF niacin 500 mg tablet extended release 24 hr 500 mg PO BEDTIME 90 Days Qty: 90 0RF magnesium oxide 500 mg capsule 500 mg PO DAILY 30 Days Qty: 30 0RF metoprolol succinate 100 mg tablet extended release 24 hr 100 mg PO DAILY 90 Days Qty: 90 0RF furosemide 20 mg tablet 20 mg PO DAILY 30 Days Qty: 30 0RF ferrous sulfate [iron] 325 mg (65 mg iron) tablet 325 mg PO DAILY 90 Days Qty: 90 0RF cyanocobalamin (vitamin B-12) [Vitamin B-12] 1,000 mcg tablet 1,000 mcg PO MOWEFR@0900 Qty: 12 0RF alendronate [Fosamax] 70 mg tablet 70 mg PO SHAW@0900 Qty: 4 0RF dicyclomine 20 mg tablet 20 mg PO TID 30 Days Qty: 90 0RF ergocalciferol (vitamin D2) [Vitamin D2] 1,250 mcg (50,000 unit) capsule 1,250 mcg PO SHAW@0900 benzonatate 100 mg capsule 100 mg PO TID PRN (Reason: cough) Qty: 20 1RF promethazine 25 mg tablet 25 mg PO TID PRN (Reason: nausea and vomiting) 30 Days Qty: 10 1RF (DME) hospital bed Kit See Rx Instructions .Route Qty: 1 0RF Rx Instructions: As directed hydrocortisone [Anti-Itch (HC)] 1 % cream 1 appl topical BID PRN (Reason: skin irritation) 14 Days Qty: 28.4 0RF levalbuterol HCl 1.25 mg/3 mL solution for nebulization 1.25 mg inhalation Q4-6H PRN (Reason: shortness of breath or wheezing) Qty: 90 1RF albuterol sulfate [Ventolin HFA] 90 mcg/actuation HFA aerosol inhaler 2 puff inhalation Q6H PRN (Reason: bronchospasm) 30 Days Qty: 6.7 1RF fluticasone propion-salmeterol [Advair HFA] 115-21 mcg/actuation HFA aerosol inhaler 2 puff inhalation Q12H Qty: 12 6RF Referrals: Yoselyn Figueroa MD [Primary Care Provider] - Interventions: ED Discharge Assessment Last Done: 05/01/24 15:10 Discharge Date/Time: 05/01/24 15:12 Print Language: Romanian
[2024-05-01 11:15] VITALS: BP 108/67; PULSE 72; RESP 26; TEMP 36.9; O2SAT 97; BMI 27.7
[2024-05-01 11:57] LABS: Mean Corpuscular Volume 77.9 fL (80.0-98.0); Red Cell Distribution Width 16.1 % (11.0-16.0)
[2024-05-01 11:59] LABS: Basophils Percent Auto 0.4 % (0-2); Eosinophils Absolute Auto 0.1 X10*3/uL (0.0-0.4); Eosinophils Percent Auto 0.8 % (0-4); Hematocrit 37.7 % (37.0-47.0); Hemoglobin 12.1 g/dl (12.0-16.0); Imm Gran Abs Auto 0.06 X10*3/uL (0.00-0.03); Imm Gran Pct Auto 0.6 % (0.0-0.4); Lymphocytes Absolute Auto 2.2 X10*3/uL (1.2-4.9); Mean Corpuscular HGB Conc 32.1 g/dl (31.0-35.0); Mean Platelet Volume 10.2 fL (9.4-12.3); Neutrophils Absolute Auto 6.9 x10*3/uL (2.0-8.3); Neutrophils Percent Auto 67.2 % (45-73); Red Blood Count 4.84 X10*6/uL (4.20-5.50)
[2024-05-01 12:01] LABS: MANUAL DIFF FLAG NO; Platelet Count 197 X10*3/uL (160-400); White Blood Count 10.3 X10*3/uL (4.8-10.8)
[2024-05-01 12:13] LABS: Alanine Aminotransferase 16 U/L (0-31); Albumin Level 3.8 g/dL (3.5-5.0); Alkaline Phosphatase 102 U/L (39-117); Anion Gap 19 (12-20); Aspartate Amino Transferase 26 U/L (5-31); Bilirubin Total 0.7 mg/dL (0.0-1.0); Blood Urea Nitrogen 24 mg/dL (9-16); Calcium 9.5 mg/dL (8.4-10.2); Carbon Dioxide 23 mmol/L (22-29); Chloride 100 mmol/L (96-108); Estimated Glomerular Filt Rate 42; Glucose Random 149 mg/dL (60-115); Magnesium 1.7 mg/dL (1.6-2.6); Potassium 3.5 mmol/L (3.3-5.1); Sodium 138 mmol/L (135-145); Total Protein 7.9 g/dL (6.5-8.0)
--- NOTE | 2024-05-01 14:25 | ECG_ITS ---
Test Reason : FALL Blood Pressure : */* mmHG Vent. Rate : 76 BPM Atrial Rate : 76 BPM P-R Int : 166 ms QRS Dur : 80 ms QT Int : 400 ms P-R-T Axes : 67 5 34 degrees QTcB Int : 450 ms Normal sinus rhythm Normal ECG When compared with ECG of 25-Aug-2023 20:38, T wave amplitude has decreased in Anterior leads Referred By: Rhonda Dumont Electronically Signed By: JAIME DELANEY
[2024-05-01 15:10] VITALS: BP 108/67; PULSE 72; RESP 26; TEMP 36.9; O2SAT 97
--- OUTSIDE RECORDS SUMMARY | 2024-05-01 17:24 | XMS_ITS | Clinical Summary ---
Author Organization [facility] Address [address] [place] [address] Phone Care Team Providers Care Refrigerating Engineer Name Role Phone Yoselyn Figueroa MD Primary Care Provider [phone] Allergies No known active allergies Medications albuterol HFA (ProAir HFA) 108 (90 Base) MCG/ACT inhaler Acti ve alendronate (FOSAMAX) 70 MG tablet Take 1 tablet by mouth 1 (one) time per week Active amLODIPine (NORVASC) 10 MG tablet Take 1 tablet by mouth at bed time 08/28/2013 Active atorvastatin (LIPITOR) 80 MG tablet Take 1 tablet by mouth 1 (one) time each day Active Cholecalciferol 50 MCG (2000 UT) capsule Take 1 capsule by mouth 1 (one) time each day Active citalopram (CeleXA) 10 MG tablet Take 1 tablet by mouth 1 (one) time each day Active cyanocobalamin (VITAMIN B-12) 1000 MCG tablet Take 1 tablet by mouth every 3 (three) months Active doxazosin (CARDURA) 2 MG tablet Comments: Filled Date: Mar 12 2019 9:40PM Patient Notes: LIZZETH MCMAHON TODOS LOS RAMIREZ Duration: 90 06/09/2018 Active folic acid (FOLVITE) 1 MG tablet Take 1 tablet by mouth 1 (one) time each day Active hydrALAZINE (APRESOLINE) 100 MG tablet Take 1 tablet by mouth 2 (two) times a day 11/09/2018 Active losartan (COZAAR) 50 MG tablet Take 1 tablet by mouth 2 (two) times a day Active metFORMIN (GLUCOPHAGE) 500 MG tablet Take 1 tablet by mouth 2 (two) times a day Active metoprolol succinate XL (TOPROL-XL) 100 MG 24 hr tablet Take 1 tablet by mouth 1 (one) time each day 07/23/2013 Active niacin (SLO-NIACIN) 500 MG CR tablet Take 2 tablets by mouth 1 (one) time each day Active oxybutynin XL (DITROPAN-XL) 10 MG 24 hr tablet Take 1 tablet by mouth 1 (one) time each day Active Acetaminophen 500 MG capsule Take 1 capsule by mouth if needed Active omeprazole (PriLOSEC) [address] capsule Take 1 capsule by mouth 1 (one) time each day 05/23/2020 Active metFORMIN XR (GLUCOPHAGE-XR) 500 MG 24 hr tablet Take 2 tablets by mouth 2 (two) times a day 02/13/2021 Active ferrous sulfate 325 (65 Fe) MG tablet Take 1 tablet by mouth 2 (two) times a day 02/01/2021 Active Active Problems Problem Noted Date Diagnosed Date Hypertension 02/19/2021 Benign essential hypertension 05/28/2020 Tobacco dependence syndrome 05/28/2020 Immunizations Name Administration Dates Next Due Pneumococcal Polysaccharide 09/05/2012 Family History Medical History Relation Comments Hypertension Sibling Relation Status Comments Father Mother Sibling Social History Tobacco Use Types Packs/Day Years Used Date Smoking Tobacco: Former Smokeless Tobacco: Former Alcohol Use Standard Drinks/Week Comments No 0 (1 standard drink = 0.6 oz pur e alcohol) Comments Unknown Sex and Gender Information Value Date Recorded Sex Assigned at Not on file Legal Sex Female 5:08 PM EST Gender Identity Not on file Sexual Orientation Not on file Last Filed Vital Signs Vital Sign Reading Time Taken Comments Blood Pressure 130/50 02/19/2021 1:44 PM EST Pulse 60 08/05/2018 12:01 PM EDT Temperature - - Respiratory Rate - - Oxygen Saturation - - Inhaled Oxygen Concentration - - Weight 71.6 kg (157 lb 12.8 oz) 02/19/2021 1:44 PM EST Height 152.4 cm (5') 05/31/2019 12:00 PM EDT Body Mass Index 30.82 05/31/2019 12:00 PM EDT Plan of Treatment Health Maintenance Due Date Last Done Comments Pneumococcal Vaccine: 65+ Ye ars (2 of 2 - PCV) 09/05/2013 09/05/2012 Influenza Vaccine (#1) 2023 Hepatitis B Vaccine Aged Out No longe r eligible based on patient's age to complete this topic Insurance [facility] ([id number]) [facility] ([id number]) Care Teams Refrigerating Engineer Relationship Specialty Start Date End Date Yoselyn Figueroa MD [address] [place], [place] PCP - General 03/18/20
== END 2024-05-01 15:12 | disposition home or self-care (01) ==
PROVIDERS: Physician Assistant Medical; Emergency Provider Emergency Medicine; PCP Internal Medicine
DX: J18.9 Pneumonia, unspecified organism (principal); F03.90 Unspecified dementia, unspecified severity, without behavioral disturbance, psychotic disturbance, mood disturbance, and anxiety; R51.9 Headache, unspecified; M54.2 Cervicalgia; M25.562 Pain in left knee; R07.89 Other chest pain; Z79.899 Other long term (current) drug therapy; Z87.891 Personal history of nicotine dependence
CPT/HCPCS: 36415; 70450; 71250; 72125; 73502; 73564; 80053; 82550; 83735; 85025; 93005; 99283; 99284

== ENCOUNTER → 2024-05-01 11:28 | Outpatient (BNV) | payer OTHER, SELFPAY | PROVIDERS: PCP Internal Medicine; Visit Provider Radiology Diagnostic Radiology | DX: R07.82 Intercostal pain (principal); S19.9XXA Unspecified injury of neck, initial encounter; S09.90XA Unspecified injury of head, initial encounter; M25.562 Pain in left knee; M25.552 Pain in left hip | CPT/HCPCS: 70450; 71250; 72125; 73502; 73564 ==

== ENCOUNTER → 2024-05-01 14:25 | Outpatient (BNV) | payer OTHER, SELFPAY | PROVIDERS: Emergency Provider Emergency Medicine; PCP Internal Medicine; Visit Provider Internal Medicine | DX: R07.81 Pleurodynia (principal); W19.XXXA Unspecified fall, initial encounter | CPT/HCPCS: 93010 ==

== ENCOUNTER 2024-05-09 06:31 | Emergency (ER) | payer MEDICARE, SELFPAY ==
--- NOTE | 2024-05-09 | ECG_ITS ---
Test Reason : CP Blood Pressure : */* mmHG Vent. Rate : 82 BPM Atrial Rate : 82 BPM P-R Int : 138 ms QRS Dur : 72 ms QT Int : 434 ms P-R-T Axes : 89 21 38 degrees QTcB Int : 507 ms Normal sinus rhythm Prolonged QT Abnormal ECG When compared with ECG of 01-May-2024 14:39, ST elevation now present in Lateral leads QT has lengthened Referred By: Generic ED Physician Electronically Signed By: NANCY HARDY MD
--- NOTE | ~2024-05-09 | XR_ITS ---
EXAMINATION: XR CHEST CLINICAL INFORMATION: chest pain COMPARISON: None available. TECHNIQUE: 2 views of the chest were obtained. FINDINGS: Lungs are well-expanded with bibasilar platelike atelectasis. No acute pneumonic process seen. Heart size and pulmonary vascularity is normal. There are dual pacer electrodes in right atrium and right ventricle. No gross bony abnormality seen. XR/XR chest 2V IMPRESSION: Bibasilar platelike atelectasis. Electronically signed by: Joseph Manning MD 05/09/2024 07:41 AM EST
[2024-05-09 06:46] VITALS: BP 141/48; PULSE 78; RESP 20; TEMP 37.1; O2SAT 98; BMI 33.2
[2024-05-09 06:51] LABS: MANUAL DIFF FLAG NO
[2024-05-09 06:53] LABS: Basophils Absolute Auto 0.1 X10*3/uL (0.0-0.2); Basophils Percent Auto 0.6 % (0-2); Eosinophils Absolute Auto 0.1 X10*3/uL (0.0-0.4); Eosinophils Percent Auto 1.1 % (0-4); Hematocrit 34.6 % (37.0-47.0); Hemoglobin 11.3 g/dl (12.0-16.0); Imm Gran Abs Auto 0.03 X10*3/uL (0.00-0.03); Imm Gran Pct Auto 0.3 % (0.0-0.4); Lymphocytes Absolute Auto 2.1 X10*3/uL (1.2-4.9); Lymphocytes Percent Auto 22.1 % (20-40); Mean Corpuscular HGB Conc 32.7 g/dl (31.0-35.0); Mean Corpuscular Hemoglobin 25.1 pg (27.0-33.0); Mean Corpuscular Volume 76.9 fL (80.0-98.0); Mean Platelet Volume 9.4 fL (9.4-12.3); Monocytes Absolute Auto 0.9 X10*3/uL (0.1-1.2); Monocytes Percent Auto 9.7 % (2-11); Neutrophils Absolute Auto 6.4 x10*3/uL (2.0-8.3); Neutrophils Percent Auto 66.2 % (45-73); Platelet Count 299 X10*3/uL (160-400); Red Cell Distribution Width 15.2 % (11.0-16.0); White Blood Count 9.7 X10*3/uL (4.8-10.8)
[2024-05-09 07:06] LABS: Alanine Aminotransferase 28 U/L (0-31); Albumin Level 3.6 g/dL (3.5-5.0); Alkaline Phosphatase 89 U/L (39-117); Anion Gap 18 (12-20); Aspartate Amino Transferase 26 U/L (5-31); Bilirubin Direct 0.2 mg/dL (0.0-0.5); Bilirubin Total 0.4 mg/dL (0.0-1.0); Blood Urea Nitrogen 18 mg/dL (9-16); Calcium 9.1 mg/dL (8.4-10.2); Carbon Dioxide 28 mmol/L (22-29); Chloride 96 mmol/L (96-108); Creatinine Clr Calc Pharmacy 36.4; Estimated Glomerular Filt Rate 46; Glucose Random 172 mg/dL (60-115); Potassium 3.7 mmol/L (3.3-5.1); Sodium 138 mmol/L (135-145); Total Protein 7.6 g/dL (6.5-8.0)
[2024-05-09 07:11] LABS: Troponin-I High Sensitivity 15.1 ng/L (<3.5-17.0)
[2024-05-09 11:11] VITALS: BP 124/64; PULSE 88; RESP 22; TEMP 37; O2SAT 96
[2024-05-09 11:17] VITALS: BP 145/64; PULSE 84; RESP 16; O2SAT 98
--- NOTE | 2024-05-09 11:17 | ED_ITS ---
HPI - Chest Pain General Chief Complaint: Chest Pain Stated Complaint: chest pain Time Seen by Provider: 05/09/24 12:28 Source: patient Mode of arrival: ambulatory Limitations: no limitations History of Present Illness ED Provider: Dr. Jolly HPI narrative: 78 year old female PMH: HFpEF, SAGAR, left hemiparesis, cardiac pacemaker in situ, asthma, GERD, CVA, DM, HTN who presents to the ER with chest pain since yesterday. Appears short of breath per nursing on arrival Related Data Home Medications ?Medication ?Instructions ?Recorded ?Confirmed ergocalciferol (vitamin D2) 1,250 1,250 mcg PO SHAW@0900 07/20/23 12/22/23 mcg (50,000 unit) capsule (Vitamin D2) Previous Rx's ?Medication ?Instructions ?Recorded blood-glucose meter (Puppet LabsStyle #1 ea 01/03/20 Beatrice Lite kit) promethazine 25 mg tablet 25 mg PO TID PRN nausea and 04/27/22 vomiting 30 days #10 tabs blood sugar diagnostic (FreeStyle #100 ea 02/04/23 Lite Strips) loratadine 10 mg tablet 10 mg PO DAILY #90 caps 04/05/23 cetirizine 5 mg/5 mL oral solution 10 mg (10 mL) PO DAILY PRN allergy 07/11/23 symptoms 30 days #150 mL doxazosin 2 mg tablet (Cardura) 2 mg PO DAILY #30 tabs 07/11/23 folic acid 1 mg tablet 1 mg PO DAILY 90 days #90 tabs 07/11/23 metformin 500 mg tablet,extended 1,000 mg (2 x 500 mg) PO DAILY 90 07/11/23 release 24 hr days #180 tabs lidocaine 5 % topical patch 1 patch topical DAILY 30 days #30 07/19/23 ea meclizine 25 mg tablet 25 mg PO TID PRN dizziness 30 days 07/19/23 #90 tabs hydrocortisone 1 % topical cream 1 appl topical BID PRN skin 08/11/23 (Anti-Itch (hydrocortisone)) irritation 2 weeks #28.4 grams benzonatate 100 mg capsule 100 mg PO TID PRN cough #20 caps 08/28/23 guaifenesin 600 mg tablet, 600 mg PO BID 5 days #10 tabs 08/30/23 extended release 12 hr (Mucinex) levalbuterol HCl 1.25 mg/3 mL 1.25 mg (3 mL) inhalation Q4-6H 09/14/23 solution for nebulization PRN shortness of breath or wheezing #90 mL hospital bed #1 ea 09/22/23 compr.stocking,knee,long,large #12 ea 10/24/23 blood sugar diagnostic (FreeStyle #100 ea 12/24/23 Lite Strips) furosemide 80 mg tablet 80 mg PO DAILY 30 days #30 tabs 01/04/24 albuterol sulfate 90 mcg/actuation 2 puff inhalation Q6H PRN 02/08/24 aerosol inhaler (Ventolin HFA) bronchospasm 30 days #6.7 grams fluticasone propionate 115 2 puff inhalation Q12H #12 grams 02/08/24 mcg-salmeterol 21 mcg/actuation HFA inhaler (Advair HFA) hydralazine 100 mg tablet 100 mg PO BID #180 caps 02/26/24 oxybutynin chloride 10 mg 10 mg PO DAILY #90 caps 02/26/24 tablet,extended release 24 hr citalopram 20 mg tablet 20 mg PO DAILY 90 days #90 tabs 02/27/24 empagliflozin 10 mg tablet 10 mg PO DAILY #30 tabs 02/28/24 (Jardiance) amlodipine 10 mg tablet 10 mg PO DAILY #90 tabs 03/28/24 losartan 25 mg tablet 25 mg PO DAILY #90 caps 03/28/24 atorvastatin 80 mg tablet 80 mg PO DAILY #90 tabs 04/04/24 alendronate 70 mg tablet (Fosamax) 70 mg PO SHAW@0900 #4 tabs 04/24/24 cyanocobalamin (vitamin B-12) 1,000 mcg PO MOWEFR@0900 #12 tabs 04/24/24 1,000 mcg tablet (Vitamin B-12) dicyclomine 20 mg tablet 20 mg PO TID 30 days #90 tabs 04/24/24 ferrous sulfate 325 mg (65 mg 325 mg PO DAILY 90 days #90 tabs 04/24/24 iron) tablet (iron) furosemide 20 mg tablet 20 mg PO DAILY 30 days #30 tabs 04/24/24 magnesium oxide 500 mg capsule 500 mg PO DAILY 30 days #30 caps 04/24/24 metoprolol succinate 100 mg 100 mg PO DAILY 90 days #90 tabs 04/24/24 tablet,extended release 24 hr niacin 500 mg tablet,extended 500 mg PO BEDTIME 90 days #90 tabs 04/24/24 release 24 hr omeprazole 20 mg capsule,delayed 20 mg PO DAILY@0630 #90 caps 04/24/24 release amoxicillin 875 mg-potassium 1 tab PO BID 7 days #14 tabs 05/01/24 clavulanate 125 mg tablet azithromycin 250 mg tablet See Rx Instructions PO .COMPLEX #6 05/01/24 tabs Allergies Allergy/AdvReac Type Severity Reaction Status Date / Time egg [EGG] AdvReac Intermediate DIARRHEA Verified 05/09/24 06:47 oats [OATS] AdvReac Intermediate DIARRHEA Verified 05/09/24 06:47 FROM OATMEAL Pioglitazone HCl AdvReac Intermediate edema Uncoded 05/09/24 06:47 Review of Systems 2 Review of Systems: Review of systems: General: Patient denies any fever chills recent illness or falls Musculoskeletal: Denies back pain or body aches or other injuries HEENT: denies headache, runny nose, ear pain Respiratory: denies shortness of breath, cough Cardiovascular: chest pain nopalpitations : denies dysuria, frequency Abdomen: no nausea vomiting denies abdominal pain Extremities: no swelling, no pain Skin: no diaphoresis Yes all other systems are reviewed and are negative PMFSH Past Medical History Medical History Acute and chronic respiratory failure CHF exacerbation COPD exacerbation Acute kidney failure Acute on chronic heart failure with preserved ejection fraction (HFpEF) Acute on chronic combined systolic (congestive) and diastolic (congestive) heart failure Acute hypoxemic respiratory failure Acute on chronic diastolic (congestive) heart failure Hearing loss CHF (congestive heart failure) Iron deficiency anemia Left hemiparesis Cardiac pacemaker in situ Diastolic dysfunction Ear discomfort Otitis media Moderate asthma Pure hypercholesterolemia Osteoporosis B12 deficiency Gallstones GERD (gastroesophageal reflux disease) Hypovitaminosis D History of stroke Diabetes mellitus Essential hypertension Surgical History History of pacemaker Family History Family History Father No problems noted. Mother No problems noted. Social History Social History Household Members: Family Housing: House Housing Other:: lives with daughter Are you a primary career services officer to a significant other at home: No Do you presently have visiting nurse or other home services: Yes (PT and Nursing) Alcohol intake: never Patient Tobacco Use Status: Former Tobacco user Tobacco use type: Cigarette Smoked in Last 30 Days: No e-Cigarette/Vaping Use: Never Used Second Hand Smoke Exposure: No Use of substances other than those prescribed or required for medical reasons: No Advance Directives: Yes Advance Directives on File: Yes Advance Directives Date on File: 07/02/21 Do you have a plan to hurt others: No Plan service: No Current occupational status: disabled Cognitive needs: Yes (walker) Hearing needs: No Vision needs: Yes (glasses) Physical Exam 2 Vital Signs: Vital Signs: Last Vital Signs Temp 98.6 F 05/09/24 11:11 Pulse 75 05/09/24 13:25 Resp 22 H 05/09/24 13:25 BP 144/66 H 05/09/24 13:25 Pulse Ox 99 05/09/24 13:25 O2 Del Method Room Air 05/09/24 13:25 O2 Flow Rate 2 05/09/24 11:11 BMI result Body Mass Index 33.2 General: Well-appearing well-nourished in no signs of distress HEENT: Normocephalic atraumatic Neck: No signs of JVD, no masses no tenderness or lymphadenopathy Cardiovascular: Regular rate and rhythm Respiratory: Clear to auscultation bilaterally Abdomen: Soft nontender no masses Extremities: Normal pedal pulses no signs of edema Skin: Dry warm no rashes Back: No tenderness full ROM Course Course Course Narrative: This is an RME: Additional HPI, ROS, PE not included below will be deferred to primary provider. RME assessment and note performed by: Marcelina Pettit PA-C This is a [id number]-female, with a past medical history of COPD on 2L nasal cannula, CHF, cardiac pacemaker, who presents to the ER with a complaint of chest pain which started last night. Pt here with daughter. Vital signs stable. Plan: Labs, CXR, viral swabs, further ER eval needed. Reevaluation(s) Reevaluation #1: patient was pending repeat troponin as well as LFTs and a lipase which was all normal I did give the patient Maalox Pepcid I do feel comfortable discharging the patient home at this time Medications Administered Discontinued Medications Generic Name Dose Route Start Last Admin Trade Name Tomasz PRN Reason Stop Dose Admin Al Hydroxide/Mg Hydroxide 30 ml 05/09/24 12:42 05/09/24 13:26 Magnesium Hydrox/Alum Hydrox 30 Ml Oral.Susp PO 05/09/24 12:43 30 ml ONCE ONE Administration Famotidine 20 mg 05/09/24 12:42 05/09/24 13:26 Famotidine 20 Mg Tablet PO 05/09/24 12:43 20 mg ONCE ONE Administration Medical Decision Making Medical Decision Making [facility] Narrative: patient has not required oxygen while waiting in the waiting room patient looks remarkably well x-ray and labs were done which were normal I will get a 2nd troponin reassess Differential Diagnosis Differential Diagnoses: The differential diagnosis associated with the presentation includes he had CHF exacerbation ACS cough flu pneumonia weakness dehydration Admission/Observation Consideration of admission/observation: Escalation of care including admission/observation considered Lab Data [facility] Lab Attestation statement: I reviewed the patient's lab results. 05/09/24 06:45 05/09/24 06:45 Labs: Lab Results 05/09/24 05/09/24 05/09/24 Range/Units 06:45 13:03 13:03 WBC 9.7 (4.8-10.8) X10*3/uL RBC 4.50 (4.20-5.50) X10*6/uL Hgb 11.3 L (12.0-16.0) g/dl Hct 34.6 L (37.0-47.0) % MCV 76.9 L (80.0-98.0) fL MCH 25.1 L (27.0-33.0) pg MCHC 32.7 (31.0-35.0) g/dl RDW 15.2 (11.0-16.0) % Plt Count 299 D (160-400) X10*3/uL MPV 9.4 (9.4-12.3) fL Immature Gran % (Auto) 0.3 (0.0-0.4) % Neut % (Auto) 66.2 (45-73) % Lymph % (Auto) 22.1 (20-40) % [place] % (Auto) 9.7 (2-11) % Eos % (Auto) 1.1 (0-4) % Baso % (Auto) 0.6 (0-2) % Lymph # (Auto) 2.1 (1.2-4.9) X10*3/uL [place] # (Auto) 0.9 (0.1-1.2) X10*3/uL Eos # (Auto) 0.1 (0.0-0.4) X10*3/uL Baso # (Auto) 0.1 (0.0-0.2) X10*3/uL Abs Immat Gran (auto) 0.03 (0.00-0.03) X10*3/uL Absolute Neuts (auto) 6.4 (2.0-8.3) x10*3/uL Absolute Nucleated RBC 0.000 (0.0-0.012) X10*3/uL Nucleated RBC % (auto) 0.0 (0.0-0.2) /100WBC Sodium 138 (135-145) mmol/L Potassium 3.7 (3.3-5.1) mmol/L Chloride 96 (96-108) mmol/L Carbon Dioxide 28 (22-29) mmol/L Anion Gap 18 (12-20) BUN 18 H (9-16) mg/dL Creatinine 1.13 (0.5-1.4) mg/dL Estim Creat Clear Calc 36.4 Estimated GFR 46 Random Glucose 172 H (60-115) mg/dL Calcium 9.1 (8.4-10.2) mg/dL Total Bilirubin 0.4 (0.0-1.0) mg/dL Direct Bilirubin 0.2 (0.0-0.5) mg/dL AST 26 (5-31) U/L ALT 28 (0-31) U/L Alkaline Phosphatase 89 (39-117) U/L Troponin I High Sens 15.1 19.1 H 20.0 H (<3.5-17.0) ng/L B-Natriuretic Peptide 179 H (<100) pg/mL Total Protein 7.6 (6.5-8.0) g/dL Albumin 3.6 (3.5-5.0) g/dL Lipase 22 (8-78) U/L Independent Interpretation I performed an independent interpretation of an: EKG and Plain X-Ray Interpretation: rate 82 lots of artifact no signs of ischemia no change from previous interpreted by me repeat troponin gone at 12:36 some 1st the patient does have dementia as well as a resting tremor that explains the artifact there was no signs of ischemia Radiology Impression Discussion of test interpretation with radiology: I have reviewed the radiologist's reading. External Record Review External record reviewed: Inpatient record Chronic Conditions Patient?s care impacted by: Diabetes and Hypertension Core Measures AMI core measures followed: Yes Scores Heart Score History: -0- slightly suspicious ECG: -0- normal Age: -2- > or = 65 Risk factory: -2- 3 or more risk factors or treated atherosclerosis Troponin: -0- < or = normal limit Score: 4 Risk: 16.6% Discharge Plan Discharge Clinical Impression: Chest pain Patient Disposition: Home, Self-Care Instructions: Chest Pain (DC) Additional Instructions: You were seen today for chest pain by Dr. August Jolly You had x-ray and labs done which were all unremarkable. Please call follow up with your doctor if you have any other concerns please return to the ER Prescriptions: No Action (DME) blood-glucose meter [FreeStyle Beatrice Lite] Kit See Rx Instructions .ROUTE .MEDSUPPLY Qty: 1 0RF Rx Instructions: As directed (DME) FreeStyle Lite Strips Strip See Rx Instructions .Route Qty: 100 1RF Rx Instructions: Use 1 test strip once a day loratadine 10 mg tablet 10 mg PO DAILY Qty: 90 3RF cetirizine 5 mg/5 mL solution 10 mg PO DAILY PRN (Reason: allergy symptoms) 30 Days Qty: 150 0RF doxazosin [Cardura] 2 mg tablet 2 mg PO DAILY Qty: 30 11RF folic acid 1 mg tablet 1 mg PO DAILY 90 Days Qty: 90 3RF metformin 500 mg tablet extended release 24 hr 1,000 mg PO DAILY 90 Days Qty: 180 3RF meclizine 25 mg tablet 25 mg PO TID PRN (Reason: dizziness) 30 Days Qty: 90 0RF lidocaine 5 % adhesive patch,medicated 1 patch topical DAILY 30 Days Qty: 30 0RF Rx Instructions: leave on most painful area for up to 12 hrs guaifenesin [Mucinex] 600 mg tablet extended release 12hr 600 mg PO BID 5 Days Qty: 10 0RF (DME) compr.stocking,knee,long,large Misc See Rx Instructions .Route Qty: 12 11RF Rx Instructions: As directed (DME) FreeStyle Lite Strips Strip See Rx Instructions .Route Qty: 100 1RF Rx Instructions: Use 1 test strip once a day furosemide 80 mg tablet 80 mg PO DAILY 30 Days Qty: 30 6RF oxybutynin chloride 10 mg tablet extended release 24hr 10 mg PO DAILY Qty: 90 0RF hydralazine 100 mg tablet 100 mg PO BID Qty: 180 0RF citalopram 20 mg tablet 20 mg PO DAILY 90 Days Qty: 90 0RF Jardiance 10 mg tablet 10 mg PO DAILY Qty: 30 5RF amlodipine 10 mg tablet 10 mg PO DAILY Qty: 90 0RF losartan 25 mg tablet 25 mg PO DAILY Qty: 90 0RF atorvastatin 80 mg tablet 80 mg PO DAILY Qty: 90 0RF omeprazole 20 mg capsule,delayed release(DR/EC) 20 mg PO DAILY@0630 Qty: 90 0RF niacin 500 mg tablet extended release 24 hr 500 mg PO BEDTIME 90 Days Qty: 90 0RF magnesium oxide 500 mg capsule 500 mg PO DAILY 30 Days Qty: 30 0RF metoprolol succinate 100 mg tablet extended release 24 hr 100 mg PO DAILY 90 Days Qty: 90 0RF furosemide 20 mg tablet 20 mg PO DAILY 30 Days Qty: 30 0RF ferrous sulfate [iron] 325 mg (65 mg iron) tablet 325 mg PO DAILY 90 Days Qty: 90 0RF cyanocobalamin (vitamin B-12) [Vitamin B-12] 1,000 mcg tablet 1,000 mcg PO MOWEFR@0900 Qty: 12 0RF alendronate [Fosamax] 70 mg tablet 70 mg PO SHAW@0900 Qty: 4 0RF dicyclomine 20 mg tablet 20 mg PO TID 30 Days Qty: 90 0RF ergocalciferol (vitamin D2) [Vitamin D2] 1,250 mcg (50,000 unit) capsule 1,250 mcg PO SHAW@0900 benzonatate 100 mg capsule 100 mg PO TID PRN (Reason: cough) Qty: 20 1RF amoxicillin-pot clavulanate 875-125 mg tablet 1 tab PO BID 7 Days Qty: 14 0RF azithromycin 250 mg tablet See Rx Instructions .ROUTE .COMPLEX Qty: 6 0RF Rx Instructions: For 250 mg dose pack: take 500 mg today (day 1), then 250 mg for 4 days (days 2-5) promethazine 25 mg tablet 25 mg PO TID PRN (Reason: nausea and vomiting) 30 Days Qty: 10 1RF (DME) hospital bed Kit See Rx Instructions .Route Qty: 1 0RF Rx Instructions: As directed hydrocortisone [Anti-Itch (HC)] 1 % cream 1 appl topical BID PRN (Reason: skin irritation) 14 Days Qty: 28.4 0RF levalbuterol HCl 1.25 mg/3 mL solution for nebulization 1.25 mg inhalation Q4-6H PRN (Reason: shortness of breath or wheezing) Qty: 90 1RF albuterol sulfate [Ventolin HFA] 90 mcg/actuation HFA aerosol inhaler 2 puff inhalation Q6H PRN (Reason: bronchospasm) 30 Days Qty: 6.7 1RF fluticasone propion-salmeterol [Advair HFA] 115-21 mcg/actuation HFA aerosol inhaler 2 puff inhalation Q12H Qty: 12 6RF Print Language: Kiswahili
--- NOTE | 2024-05-09 11:23 | ECG_ITS ---
Test Reason : chest pain Blood Pressure : */* mmHG Vent. Rate : 78 BPM Atrial Rate : 78 BPM P-R Int : 142 ms QRS Dur : 76 ms QT Int : 412 ms P-R-T Axes : 55 27 35 degrees QTcB Int : 469 ms Normal sinus rhythm Normal ECG When compared with ECG of 09-May-2024 06:35, No significant change was found Referred By: Marcelina Pettit Electronically Signed By: NANCY HARDY MD
[2024-05-09 13:08] LABS: Lipase 22 U/L (8-78)
[2024-05-09 13:25] VITALS: BP 144/66; PULSE 75; RESP 22; O2SAT 99
--- NOTE | 2024-05-09 13:25 | PC.NURSE ---
pt is alert with some confusion at baseline, skin appropriate for ethnicity, respirations slightly labored ranging from 20-24, ls clear pt is sating 99% on 2l which is the pt's baseline, pt's daughter reports that the pt is just getting over pneumonia, pt is intermittent midsternal chest pain that started yesterday, reports feeling like pressure, vs stable at this time, ns on the monitor
[2024-05-09] MEDS: Famotidine 20 MG TABLET PO (13:26)
[2024-05-09] MEDS: Magnesium Hydrox/Alum Hydrox 30 ML ORAL.SUSP PO (13:26)
[2024-05-09 13:32] LABS: B Type Natriuretic Peptide 179 pg/mL (<100)
[2024-05-09 13:34] LABS: Troponin-I High Sensitivity 19.1 ng/L (<3.5-17.0)
[2024-05-09 14:30] VITALS: BP 144/66; PULSE 75; RESP 22; TEMP 36.6; O2SAT 99
--- OUTSIDE RECORDS SUMMARY | 2024-05-09 15:36 | XMS_ITS | Clinical Summary ---
Author Organization [facility] Address [address] [place] [address] Phone Care Team Providers Care Logistics Planning Manager Name Role Phone Yoselyn Figueroa MD Primary Care Provider [phone] Allergies No known active allergies Medications albuterol [...] patient's age to complete this topic Insurance [facility] ([id number]) [facility] ([id number]) Care Teams Logistics Planning Manager Relationship Specialty Start Date End Date Yoselyn Figueroa MD [address] [place], [place] PCP - General 03/18/20
== END 2024-05-09 14:31 | disposition home or self-care (01) ==
PROVIDERS: Physician Assistant Medical; Emergency Provider Student in an Organized Health Care Education/Training Program; PCP Internal Medicine
DX: R07.89 Other chest pain (principal); J44.9 Chronic obstructive pulmonary disease, unspecified; R06.02 Shortness of breath; Z86.73 Personal history of transient ischemic attack (TIA), and cerebral infarction without residual deficits; Z99.81 Dependence on supplemental oxygen; Z79.899 Other long term (current) drug therapy
CPT/HCPCS: 36415; 71046; 80048; 80076; 83690; 83880; 84484; 85025; 93005; 99283; 99285

== ENCOUNTER → 2024-05-09 06:35 | Outpatient (BNV) | payer OTHER, SELFPAY | PROVIDERS: PCP Internal Medicine; Visit Provider Internal Medicine Cardiovascular Disease | DX: I21.29 ST elevation (STEMI) myocardial infarction involving other sites (principal); R07.9 Chest pain, unspecified | CPT/HCPCS: 93010 ==

== ENCOUNTER → 2024-05-09 07:15 | Outpatient (BNV) | payer OTHER, SELFPAY | PROVIDERS: PCP Internal Medicine; Visit Provider Radiology Diagnostic Radiology | DX: J98.11 Atelectasis (principal) | CPT/HCPCS: 71046 ==

== ENCOUNTER 2024-05-17 09:13 | Outpatient (AMB) | payer OTHER, SELFPAY ==
--- NOTE | 2024-05-17 08:47 | MHC.OFFVIS ---
Vital Signs 05/17/24 09:16 Height 5 ft 2 in Weight 145 lb BMI 26.5 BP 140/66 H Pulse 71 Pulse Source Pulse Oximeter Pulse Oximetry (%) 95 Oxygen Delivery Method Room Air Intake Visit Reasons: COPD Skid Worker Required: No Mothercraft Nurse: Mothercraft Nurse offered & declined Accompanied by: Daughter Allergies egg [EGG] Adverse Reaction (Intermediate, Verified 05/17/24 09:22) DIARRHEA oats [OATS] Adverse Reaction (Intermediate, Verified 05/17/24 09:22) DIARRHEA FROM OATMEAL Pioglitazone HCl Adverse Reaction (Intermediate, Uncoded 05/17/24 09:22) edema Medication List - Last Reconciled 05/17/24 by Kaitlynn Morris LPN albuterol sulfate 90 mcg/actuation (Ventolin HFA) 2 puffs inhalation Q6H PRN 30 days alendronate (Fosamax) 70 mg PO SHAW@0900 amlodipine 10 mg PO DAILY amoxicillin-pot clavulanate 875-125 mg 1 tab PO BID 7 days atorvastatin 80 mg PO DAILY azithromycin For 250 mg dose pack: take 500 mg today (day 1), then 250 mg for 4 days (days 2-5) benzonatate 100 mg PO TID PRN blood sugar diagnostic (FreeStyle Lite Strips) Use 1 test strip once a day blood sugar diagnostic (FreeStyle Lite Strips) Use 1 test strip once a day blood-glucose meter (FreeStyle [place] Lite kit) As directed cetirizine 10 mg (10 mL) PO DAILY PRN 30 days citalopram 20 mg PO DAILY 90 days compr.stocking,knee,long,large As directed cyanocobalamin (vitamin B-12) (Vitamin B-12) 1,000 mcg PO MOWEFR@0900 dicyclomine 20 mg PO TID 30 days doxazosin (Cardura) 2 mg PO DAILY empagliflozin (Jardiance) 10 mg PO DAILY ergocalciferol (vitamin D2) (Vitamin D2) 1,250 mcg PO SHAW@0900 ferrous sulfate (iron) 325 mg PO DAILY 90 days fluticasone propion-salmeterol 115-21 mcg/actuation (Advair HFA) 2 puffs inhalation Q12H folic acid 1 mg PO DAILY 90 days furosemide 80 mg PO DAILY 30 days furosemide 20 mg PO DAILY 30 days guaifenesin ER (Mucinex) 600 mg PO BID 5 days hospital bed As directed hydralazine 100 mg PO BID hydrocortisone 1% (Anti-Itch (hydrocortisone)) 1 appl topical BID PRN 2 weeks levalbuterol HCl 1.25 mg (3 mL) inhalation Q4-6H PRN lidocaine 5% 1 patch topical DAILY 30 days loratadine 10 mg PO DAILY losartan 25 mg PO DAILY magnesium oxide 500 mg PO DAILY 30 days meclizine 25 mg PO TID PRN 30 days metformin ER 1,000 mg (2 x 500 mg) PO DAILY 90 days metoprolol succinate ER 100 mg PO DAILY 90 days niacin ER 500 mg PO BEDTIME 90 days omeprazole 20 mg PO DAILY@0630 oxybutynin chloride ER 10 mg PO DAILY promethazine 25 mg PO TID PRN 30 days HPI HPI COPD: Details: Nedra is a pleasant 78 year old female, former smoker, with 60+ pack year history, quit 5 years ago with underlying asthma/COPD on 2L supplemental oxygen with exertion, HTN, DMII, diastolic dysfunction s/p pacer and CVA with left-sided residual hemiparesis. She is accompanied by her VACCINE MANAGER today. Previously she had been well controlled on Advair, requiring albuterol MDI infrequently. However today notes worsening dyspnea on exertion with increase in dry cough. Denies fevers, chills, chest congestion or wheezing. She has been using 2L NOC and 2L with exertion, maintaining O2 saturation at home reportedly >92%. Since the last visit she was evaluated at [facility] on 05/01 s/p fall with incidental finding of new 2.3 x 1.8 x 1.7 cm irregularly shaped airspace opacity at the medial aspect of the left lung apex. Patient denied any respiratory symptoms at the time however thought to be pneumonia, treated with Augmentin and Azithromycin. [facility] Medical History Acute and chronic respiratory failure CHF exacerbation COPD exacerbation Acute kidney failure Acute on chronic heart failure with preserved ejection fraction (HFpEF) Acute on chronic combined systolic (congestive) and diastolic (congestive) heart failure Acute hypoxemic respiratory failure Acute on chronic diastolic (congestive) heart failure Hearing loss CHF (congestive heart failure) Iron deficiency anemia Left hemiparesis Cardiac pacemaker in situ Diastolic dysfunction Ear discomfort Otitis media Moderate asthma Pure hypercholesterolemia Osteoporosis B12 deficiency Gallstones GERD (gastroesophageal reflux disease) Hypovitaminosis D History of stroke Diabetes mellitus Essential hypertension Surgical History History of pacemaker Family History Father No problems noted. Mother No problems noted. Social History Household Members: Family Housing: House Housing Other:: lives with daughter Are you a primary care clinician to a significant other at home: No Do you presently have visiting nurse or other home services: Yes (PT and Nursing) Alcohol intake: never Patient Tobacco Use Status: Former Tobacco user Tobacco use type: Cigarette e-Cigarette/Vaping Use: Never Used Second Hand Smoke Exposure: No Advance Directives Date on File: 07/02/21 service: No Current occupational status: disabled Cognitive needs: Yes (walker) Hearing needs: No Vision needs: Yes (glasses) Review of Systems Const Denies chills, Denies excessive sweating, Denies fever(s), Denies headache(s) and Denies night sweats Eyes Denies dry eyes, Denies irritation and Denies itchy eyes ENT Reports Normal hearing present, Denies headache(s), Denies nasal congestion, Denies nasal discharge, Denies post nasal drip and Denies sore throat Card Denies chest pain, Denies chest pain at rest, Denies chest pain with activity, Denies claudication, Denies leg edema, Reports dyspnea on exertion, Denies orthopnea and Denies paroxysmal nocturnal dyspnea Resp Denies chest congestion, Reports cough, Denies hemoptysis, Denies excessive phlegm production, Denies pain on inspiration, Denies pain with cough, Reports dyspnea on exertion and Denies stridor Musc Denies myalgias Neuro Reports Normal hearing present and Denies headache(s) Endo Denies excessive sweating Eric/Lymph Denies lymphadenopathy Aller/Immun Denies itchy eyes and Denies seasonal rhinorrhea Physical Exam Vital Signs: Last Vital Signs Pulse 71 05/17/24 09:16 Pulse Ox 95 05/17/24 09:16 Oxygen Delivery Method Room Air 05/17/24 09:16 Const General: cooperative, healthy appearing, comfortable, no acute distress, well developed and alert Nutritional Appearance: obese Orientation/consciousness: patient oriented x3 Limitations: ambulation with cane HEENT Head: Yes normal to inspection, Yes normocephalic and Yes atraumatic Ears: hearing grossly normal bilaterally and external ears normal Eyes General: appearance normal, both eyes and all related structures Eyelids: Yes eyelids normal Sclerae: sclerae normal EOM: EOMs intact bilaterally Neck Neck: Yes normal visual inspection and Yes no lymphadenopathy Lymphatic: no lymphadenopathy noted Chest Chest palpation & inspection: normal inspection of the chest Resp Effort & Inspection: normal respiratory effort, able to speak in complete sentences, no audible wheezes, no cough, no stridor, not tachypneic, no tripod positioning and no use of accessory muscles Auscultation: no wheezes and diminished lung sounds Cardio Jugular venous distension: no JVD Rate: regular rate Rhythm: regular rhythm Skin Other: warm, dry General skin exam: no rashes or lesions noted Neuro General: patient oriented x3 Cranial nerves: Yes Normal hearing present Cognition (Neuro): normal cognition Gait exam (Neuro): Normal gait present Extrem Other: trace pitting edema BLE Psych Appearance: grossly normal and well kempt Speech and movement: Normal speech and movement present and Clear speech present Affect: normal affect Attitude: cooperative Thought process: Normal thought process present Thought content: Normal thought content present Insight: Good insight present (Psych) Judgement: Good judgement present (Psych) Results Reviewed Results Reviewed: [place] [address] CT Scan Report Signed Patient: Nedra Drummond MR#: [id number] : 1945 Acct:[id number] Age/Sex: 78 / F ADM Date: 05/01/24 Loc: HO.ED Attending Dr: Ordering Physician: Rhonda Dumont Date of Service: 05/01/24 Procedure(s): CT chest wo IV con Accession Number(s): [id number] cc: Rhonda Dumont; Yoselyn Figueroa MD~ Report Number: [id number]: Total DLP = 312.00 mGy-cm EXAMINATION: CT CHEST WITHOUT IV CONTRAST INDICATION: right rib pain s/p fall COMPARISON: Comparison is made with the prior examination dated 08/26/2023. TECHNIQUE: Helical CT scan of the chest was performed without intravenous contrast. Coronal and sagittal reformatted images were generated and reviewed. This CT exam was performed with one or more of the following dose reduction techniques: automated exposure control, adjustment of the mA and/or kV according to patient size, use of iterative reconstruction technique. DLP: 298.31 mGy-cm CHEST: The examination is limited by patient respiratory motion artifact. THYROID: The thyroid is unremarkable. LUNGS: Again seen is nodular scarring at the right lung apex. There is an irregularly-shaped to airspace opacity at the medial aspect of the left lung apex measuring 2.3 x 1.8 x 1.7 cm which was not present previously. MEDIASTINUM: There is no mediastinal lymphadenopathy. MEDARDO: Evaluation of the hilar regions is limited by lack of intravenous contrast material. CARDIOVASCULATURE: The heart is enlarged. A pacemaker is seen in place. There is no pericardial effusion. The thoracic aorta is normal in caliber. DEGREE OF CORONARY CALCIFICATION: severe PLEURA: There is no pleural effusion. No pneumothorax. MAIN AIRWAYS: The mainstem bronchi and proximal branches are patent. AXILLA: There is no axillary lymphadenopathy. BONES AND SOFT TISSUES: There is a moderate hiatal hernia. No displaced rib fractures seen, although evaluation is limited by respiratory motion artifact. There is a mild compression deformity of T10 without change. UPPER ABDOMEN: The visualized portions of the liver, spleen, and adrenals have an unremarkable unenhanced appearance. CT/CT chest wo IV con IMPRESSION: 1. 2.3 x 1.8 x 1.7 cm irregularly shaped airspace opacity at the medial aspect of the left lung apex. While this could represent pneumonia, neoplasm could also have this appearance. Close follow-up with chest CT in 3 months is recommended. Alternatively, PET/CT scan could be performed. 2. No displaced rib fracture is seen, although evaluation is limited by respiratory motion artifact. Electronically signed by: Prashanth Potter MD 05/01/2024 01:23 PM [facility] Dictated By: Prashanth Potter MD Signed By: <Electronically signed by Prashanth Potter MD in OV> 05/01/24 1323 DD/ 1134 TD/TT: 05/01/24 1308 Data Warehouse Specialist: Assessment & Plan Assessment & Plan (1) COPD (chronic obstructive pulmonary disease): Code(s): J44.9 - Chronic obstructive pulmonary disease, unspecified Category: Medical Qualifiers: COPD type: unspecified COPD Qualified Code(s): J44.9 - Chronic obstructive pulmonary disease, unspecified (2) Oxygen dependent: Code(s): Z99.81 - Dependence on supplemental oxygen Category: Medical (3) CHF (congestive heart failure): Code(s): I50.9 - Heart failure, unspecified Category: Medical Qualifiers: Heart failure chronicity: chronic Heart failure type: diastolic Qualified Code(s): I50.32 - Chronic diastolic (congestive) heart failure (4) History of recent pneumonia: Code(s): Z87.01 - Personal history of pneumonia (recurrent) Category: Medical Plan Nedra reports suboptimal control of respiratory symptoms on Advair 115mcg, will increase to 230 mcg. Will also repeat chest CT after recent imaging revealed new 2.3 x 1.8 x 1.7 cm irregularly shaped airspace opacity at the medial aspect of the left lung apex. This new finding was treated as a pneumonia, however underlying neoplasm could also have this appearance. All questions were answered and patient is in agreement of plan. Will follow up in 6-8 weeks or sooner if needed. Orders: Orders CT chest wo IV con 2 Months Z87.01 - Personal history of pneumonia (recurrent) Medications: New fluticasone propion-salmeterol 230-21 mcg/actuation (Advair HFA) 2 puffs inhalation Q12H 12 grams 3RF Coding Level of Care Code Est Pt Level 4 (08431) Diagnoses Chronic obstructive pulmonary disease, unspecified COPD type J44.9 COPD type: unspecified COPD Oxygen dependent Z99.81 Chronic diastolic congestive heart failure I50.32 Heart failure chronicity: chronic Heart failure type: diastolic History of recent pneumonia Z87.01
[2024-05-17 09:16] VITALS: BP 140/66; PULSE 71; O2SAT 95; BMI 26.5
--- OUTSIDE RECORDS SUMMARY | 2024-05-17 09:54 | XMS_ITS | Clinical Summary ---
Author Organization [facility] Address [address] [place] [address] Phone Care Team Providers Care Mens Locker Room Attendant Name Role Phone Yoselyn Figueroa MD Primary Care Provider [phone] Allergies No known active allergies Medications albuterol [...] [facility] ([id number]) Care Teams Mens Locker Room Attendant Relationship Specialty Start Date End Date Yoselyn Figueroa MD [address] [place], [place] PCP - General 03/18/20
== END 2024-05-17 09:41 | disposition home or self-care (01) ==
LOC: HO.HPSW 09:13
PROVIDERS: PCP Internal Medicine; Visit Provider Nurse Practitioner Family
DX: J44.9 Chronic obstructive pulmonary disease, unspecified (principal); Z99.81 Dependence on supplemental oxygen; I50.32 Chronic diastolic (congestive) heart failure; Z87.01 Personal history of pneumonia (recurrent)
CPT/HCPCS: 99214

== ENCOUNTER → 2024-05-17 09:13 | Outpatient (BNVA) | payer OTHER, SELFPAY | PROVIDERS: PCP Internal Medicine; Visit Provider Nurse Practitioner Family | DX: R05.9 Cough, unspecified (principal); J44.9 Chronic obstructive pulmonary disease, unspecified; I50.32 Chronic diastolic (congestive) heart failure; Z99.81 Dependence on supplemental oxygen; Z87.01 Personal history of pneumonia (recurrent) | CPT/HCPCS: 99212 ==

== ENCOUNTER 2024-05-19 13:29 | Outpatient (REF) | payer OTHER, SELFPAY ==
--- OUTSIDE RECORDS SUMMARY | 2024-05-19 15:06 | XMS_ITS | Clinical Summary ---
Author Organization [facility] Address [address] [place] [address] Phone Care Team Providers Care Offal Trimmer Name Role Phone Yoselyn Figueroa MD Primary Care Provider [phone] Allergies No known active allergies Medications albuterol [...] patient's age to complete this topic Insurance [facility] ([id number]) [facility] ([id number]) Care Teams Offal Trimmer Relationship Specialty Start Date End Date Yoselyn Figueroa MD [address] [place], [place] PCP - General 03/18/20
== END 2024-05-19 13:30 | disposition home or self-care (01) ==
LOC: HO.MAMMO 13:29
PROVIDERS: PCP Internal Medicine; Visit Provider Internal Medicine
DX: Z12.31 Encounter for screening mammogram for malignant neoplasm of breast (principal)
CPT/HCPCS: 77063; 77067

== ENCOUNTER → 2024-05-19 13:30 | Outpatient (BNV) | payer OTHER, SELFPAY | PROVIDERS: PCP Internal Medicine; Visit Provider Internal Medicine | DX: Z12.31 Encounter for screening mammogram for malignant neoplasm of breast (principal) | CPT/HCPCS: 77063; 77067 ==

== ENCOUNTER 2024-07-05 14:40 | Outpatient (AMB) | payer OTHER, SELFPAY ==
--- NOTE | 2024-07-05 14:43 | MHC.OFFVIS ---
Vital Signs 07/05/24 14:44 Height 5 ft 2 in Weight 141 lb 1.533 oz BMI 25.8 BP 124/80 Blood Pressure Location Lt brachial Position Sitting Pulse 70 Intake Visit Reasons: rs 06/29-09/11 6 mos f/u/device check Intake Note: 6 month follow-up with St cid check feeling good Lathe Hand Required: Yes Lathe Hand Services: Lathe Hand Offered & Declined Commercial Kitchen Service Technician: Commercial Kitchen Service Technician Present Accompanied by: Grand Child Allergies egg [EGG] Adverse Reaction (Intermediate, Verified 05/17/24 09:22) DIARRHEA oats [OATS] Adverse Reaction (Intermediate, Verified 05/17/24 09:22) DIARRHEA FROM OATMEAL Pioglitazone HCl Adverse Reaction (Intermediate, Uncoded 05/17/24 09:22) edema Medication List - Last Reconciled 07/05/24 by Bryn Newell MD albuterol sulfate 90 mcg/actuation (Ventolin HFA) 2 puffs inhalation Q6H PRN 30 days alendronate (Fosamax) 70 mg PO SHAW@0900 amlodipine 10 mg PO DAILY atorvastatin 80 mg PO DAILY benzonatate 100 mg PO TID PRN blood sugar diagnostic (FreeStyle Lite Strips) Use 1 test strip once a day blood sugar diagnostic (FreeStyle Lite Strips) Use 1 test strip once a day blood-glucose meter (FreeStyle [place] Lite kit) As directed cetirizine 10 mg (10 mL) PO DAILY PRN 30 days citalopram 20 mg PO DAILY 90 days compr.stocking,knee,long,large As directed cyanocobalamin (vitamin B-12) (Vitamin B-12) 1,000 mcg PO MOWEFR@0900 dicyclomine 20 mg PO TID 30 days doxazosin (Cardura) 2 mg PO DAILY empagliflozin (Jardiance) 10 mg PO DAILY ergocalciferol (vitamin D2) (Vitamin D2) 1,250 mcg PO SHAW@0900 ferrous sulfate (iron) 325 mg PO DAILY 90 days fluticasone propion-salmeterol 115-21 mcg/actuation (Advair HFA) 2 puffs inhalation Q12H fluticasone propion-salmeterol 230-21 mcg/actuation (Advair HFA) 2 puffs inhalation Q12H folic acid 1 mg PO DAILY 90 days furosemide 80 mg PO DAILY 30 days furosemide 20 mg PO DAILY 30 days guaifenesin ER (Mucinex) 600 mg PO BID 5 days hospital bed As directed hydralazine 100 mg PO BID hydrocortisone 1% (Anti-Itch (hydrocortisone)) 1 appl topical BID PRN 2 weeks levalbuterol HCl 1.25 mg (3 mL) inhalation Q4-6H PRN lidocaine 5% 1 patch topical DAILY 30 days loratadine 10 mg PO DAILY losartan 25 mg PO DAILY magnesium oxide 500 mg PO DAILY 30 days meclizine 25 mg PO TID PRN 30 days metformin ER 1,000 mg (2 x 500 mg) PO DAILY 90 days metoprolol succinate ER 100 mg PO DAILY 90 days niacin ER 500 mg PO BEDTIME 90 days omeprazole 20 mg PO DAILY@0630 oxybutynin chloride ER 10 mg PO DAILY promethazine 25 mg PO TID PRN 30 days HPI Comments Details: Nedra comes for follow-up, accompanied by her granddaughter. 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 She has been doing well from cardiac perspective. She has not had any symptoms. No leg edema, orthopnea, PND. She says she does get short of breath nighttime she does not use oxygen which she uses for her chronic respiratory failure related to COPD. She denies any palpitations, lightheadedness, syncope. No exertional chest pain. PENDING SALE TO [facility] Medical History Acute and chronic respiratory failure CHF exacerbation COPD exacerbation Acute kidney failure Acute on chronic heart failure with preserved ejection fraction (HFpEF) Acute on chronic combined systolic (congestive) and diastolic (congestive) heart failure Acute hypoxemic respiratory failure Acute on chronic diastolic (congestive) heart failure Hearing loss CHF (congestive heart failure) Iron deficiency anemia Left hemiparesis Cardiac pacemaker in situ Diastolic dysfunction Ear discomfort Otitis media Moderate asthma Pure hypercholesterolemia Osteoporosis B12 deficiency Gallstones GERD (gastroesophageal reflux disease) Hypovitaminosis D History of stroke Diabetes mellitus Essential hypertension Surgical History History of pacemaker Family History Father No problems noted. Mother No problems noted. Social History Household Members: Family Housing: House Housing Other:: lives with daughter Are you a primary intensive care nurse to a significant other at home: No Do you presently have visiting nurse or other home services: Yes (PT and Nursing) Alcohol intake: never Patient Tobacco Use Status: Former Tobacco user Tobacco use type: Cigarette e-Cigarette/Vaping Use: Never Used Second Hand Smoke Exposure: No Advance Directives Date on File: 07/02/21 service: No Current occupational status: disabled Cognitive needs: Yes (walker) Hearing needs: No Vision needs: Yes (glasses) Review of Systems Const Denies chills, Denies fatigue, Denies fever(s), Denies frequent falls, Denies weakness, Denies weight gain and Denies weight loss ENT Denies dizziness Card Denies chest pain, Denies leg edema, Denies lightheadedness, Denies palpitations, Denies dyspnea, Denies dyspnea on exertion, Denies orthopnea and Denies other (loss of consciousness) Resp Denies cough, Denies dyspnea and Denies dyspnea on exertion GI Denies hematochezia and Denies change in stool character Musc Denies abnormal gait, Denies muscle weakness, Denies numbness, Denies radiating pain into limb and Denies tingling Neuro Denies abnormal gait, Denies dizziness, Denies frequent falls, Denies numbness, Denies tingling and Denies weakness Endo Denies fatigue and Denies palpitations Physical Exam Vital Signs: Last Vital Signs Pulse 70 07/05/24 14:44 BP 124/80 07/05/24 14:44 BMI result Body Mass Index 25.8 Const General: cooperative, comfortable, no acute distress, alert and awake Nutritional Appearance: obese Orientation/consciousness: patient oriented x3 Limitations: ambulation with cane Neck Neck: Yes trachea midline, Yes supple and Yes JVD Resp Effort & Inspection: normal respiratory effort Auscultation: clear to auscultation bilaterally Cardio Jugular venous distension: JVD Palpation: normal PMI Rate: regular rate Rhythm: regular rhythm Heart sounds: S1 normal heart sound present, S2 normal heart sound present, no click, no gallops, no murmurs and Other heart sounds present (Soft S4 present) GI Auscultation: normal bowel sounds Skin General skin exam: no rashes or lesions noted Neuro General: patient oriented x3 and no focal motor deficits Extrem General: No clubbing, No cyanosis and Yes edema Psych Appearance: grossly normal Office Procedures Cardiac Device Check Cardiac Device Check Details: Dual-chamber [place] pacemaker in place. Programmed in DDDR at 60 beats per minute. Atrial pacing 37% of time. No arrhythmias noted. Atrial ventricular capture thresholds adequate and in auto capture mode. Atrial ventricular sensing is adequate. Pacing lead impedance is stable. Battery life is at about 1.1 years [id number] Cardiac Device Check, pacemaker dual lead Procedure code (CPT) selection complete Assessment & Plan Assessment & Plan (1) CHF (congestive heart failure): Code(s): I50.9 - Heart failure, unspecified Category: Medical Qualifiers: Heart failure chronicity: chronic Heart failure type: diastolic Qualified Code(s): I50.32 - Chronic diastolic (congestive) heart failure Plan: Heart failure with preserved ejection fraction, clinically euvolemic and well compensated current diuretic dose with furosemide as well as on Jardiance therapy. She has done well with the same. Signs and symptoms of heart failure were discussed. The granddaughter understands well. Importance of diuretic therapy was discussed. Daily weight monitoring avoidance salt loading was discussed. Continue oxygen therapy at nighttime to treat for nocturnal hypoxemia which is important part of overall heart failure management as well. Continue COPD management. Continue aggressive blood pressure control which is currently well optimized advised to monitor blood pressure at home maintain a log. Goal blood pressure less than 130/84, currently well optimized. (2) Cardiac pacemaker in situ: Code(s): Z95.0 - Presence of cardiac pacemaker Category: Medical Plan: Cardiac pacemaker in-situ for sick sinus syndrome. Pacemaker is working well. Reprogrammed for adequate function. Will follow remotely every 3 months. Follow up in the clinic in 6 months time, sooner p.r.n.. Thank you for allowing me to partake in her care Coding Level of Care Code Est Pt Level 4 (04526) Complex EM visit Add On G2211 Diagnoses Chronic diastolic congestive heart failure I50.32 Heart failure chronicity: chronic Heart failure type: diastolic Cardiac pacemaker in situ Z95.0 CPT Codes Cardiac Device Check - Cardiac Device 2: [id number] Cardiac Device Check, pacemaker dual lead ([id number])
[2024-07-05 14:44] VITALS: BP 124/80; PULSE 70; BMI 25.8
--- OUTSIDE RECORDS SUMMARY | 2024-07-05 15:52 | XMS_ITS | Clinical Summary ---
Author Organization [facility] Address [address] [place] [address] Phone Care Team Providers Care Parts Picker Name Role Phone Yoselyn Figueroa MD Primary Care Provider [phone] Allergies No known active allergies Medications albuterol [...] hypertension 05/28/2020 Tobacco dependence syndrome 05/28/2020 Immunizations Immunization Administration Dates Next Due Pneumococcal Polysaccharide 09/05/2012 [...] Due Date Last Done Comments Pneumococcal Vaccine: 50+ Ye ars (2 of 2 - PCV) 09/05/2013 09/05/2012 Influenza Vaccine (Season Ended) 2024 Pneumococcal Vaccine: Peds ( 0 to 5 Years) and At-Risk Patients (6 to 49 Years) Discontinued 09/05/2012 Hepatitis B Vaccine Aged Out No longe r eligible based on patient's age to complete this topic Insurance [facility] ([id number]) [facility] ([id number]) Care Teams Parts Picker Relationship Specialty Start Date End Date Yoselyn Figueroa MD [address] [place], [place] PCP - General 03/18/20
== END 2024-07-05 15:07 | disposition home or self-care (01) ==
LOC: HO.HCS 14:40
PROVIDERS: PCP Internal Medicine; Visit Provider Internal Medicine Cardiovascular Disease
DX: I50.32 Chronic diastolic (congestive) heart failure (principal); Z95.0 Presence of cardiac pacemaker
CPT/HCPCS: 93280; 99214; G2211

== ENCOUNTER → 2024-07-05 14:40 | Outpatient (BNVA) | payer OTHER, SELFPAY | PROVIDERS: PCP Internal Medicine; Visit Provider Internal Medicine Cardiovascular Disease | DX: I50.32 Chronic diastolic (congestive) heart failure (principal); Z45.018 Encounter for adjustment and management of other part of cardiac pacemaker | CPT/HCPCS: 93280; 99212 ==

== ENCOUNTER 2024-07-08 07:07 | Outpatient (REF) | payer OTHER, SELFPAY ==
[2024-07-08 07:30] LABS: MANUAL DIFF FLAG NO
[2024-07-08 08:04] LABS: Basophils Absolute Auto 0.1 X10*3/uL (0.0-0.2); Basophils Percent Auto 0.8 % (0-2); Eosinophils Absolute Auto 0.2 X10*3/uL (0.0-0.4); Eosinophils Percent Auto 3.6 % (0-4); Hematocrit 39.2 % (37.0-47.0); Hemoglobin 11.9 g/dl (12.0-16.0); Imm Gran Abs Auto 0.02 X10*3/uL (0.00-0.03); Imm Gran Pct Auto 0.3 % (0.0-0.4); Lymphocytes Absolute Auto 1.7 X10*3/uL (1.2-4.9); Lymphocytes Percent Auto 26.8 % (20-40); Mean Corpuscular HGB Conc 30.4 g/dl (31.0-35.0); Mean Corpuscular Volume 79.2 fL (80.0-98.0); Mean Platelet Volume 10.1 fL (9.4-12.3); Monocytes Absolute Auto 0.6 X10*3/uL (0.1-1.2); Monocytes Percent Auto 8.9 % (2-11); Neutrophils Absolute Auto 3.8 x10*3/uL (2.0-8.3); Neutrophils Percent Auto 59.6 % (45-73); Platelet Count 245 X10*3/uL (160-400); Red Blood Count 4.95 X10*6/uL (4.20-5.50); Red Cell Distribution Width 17.2 % (11.0-16.0); White Blood Count 6.4 X10*3/uL (4.8-10.8)
[2024-07-08 08:38] LABS: Alanine Aminotransferase 22 U/L (0-31); Albumin Level 3.8 g/dL (3.5-5.0); Alkaline Phosphatase 106 U/L (39-117); Anion Gap 15 (12-20); Aspartate Amino Transferase 21 U/L (5-31); Bilirubin Total 0.4 mg/dL (0.0-1.0); Blood Urea Nitrogen 19 mg/dL (9-16); Calcium 9.2 mg/dL (8.4-10.2); Carbon Dioxide 33 mmol/L (22-29); Chloride 102 mmol/L (96-108); Cholesterol 132 mg/dL (<200); Estimated Glomerular Filt Rate 56; Glucose Fasting 142 mg/dL (60-99); HDL Cholesterol 45 mg/dL (>40); Iron 57 mcg/dL (30-160); LDL Cholesterol Calculated 74 mg/dL (<100); Magnesium 1.7 mg/dL (1.6-2.6); Percent Iron Saturation 26 % (15-50); Potassium 3.7 mmol/L (3.3-5.1); Sodium 146 mmol/L (135-145); Total Iron Binding Capacity 216 mcg/dL (228-428); Total Protein 7.1 g/dL (6.5-8.0); Triglycerides 65 mg/dL (<150); Unsaturated Iron Binding 159 ug/dL
[2024-07-08 08:56] LABS: Vitamin D 25-OH Total 30.4 ng/mL (>30)
[2024-07-08 09:04] LABS: Folate 9.8 ng/mL (> or = 4.0); Vitamin B12 1230 pg/mL (200-900)
[2024-07-08 10:35] LABS: Creatinine Urine 76.48 mg/dL; Microalbum/Creatinine Ratio Ur 16.9 ug/mg cr (<30)
[2024-07-12 01:24] LABS: NT-proBNP 796 pg/mL (<450)
== END 2024-07-08 07:08 | disposition home or self-care (01) ==
LOC: HO.LAB 07:07
PROVIDERS: PCP Internal Medicine; Visit Provider Internal Medicine
DX: D64.9 Anemia, unspecified (principal); E83.42 Hypomagnesemia; E78.5 Hyperlipidemia, unspecified; E53.8 Deficiency of other specified B group vitamins; I50.32 Chronic diastolic (congestive) heart failure; E11.9 Type 2 diabetes mellitus without complications
CPT/HCPCS: 36415; 80053; 80061; 82043; 82306; 82570; 82607; 82746; 83540; 83735; 83880; 85025

== ENCOUNTER → 2024-07-10 23:59 | Outpatient (BNV) | payer OTHER, SELFPAY ==
--- NOTE | 2024-07-11 13:13 | MHC.OFFVIS ---
Intake Visit Reasons: Remote device check- [facility] Allergies egg [EGG] Adverse Reaction (Intermediate, Verified 05/17/24 09:22) DIARRHEA oats [OATS] Adverse Reaction (Intermediate, Verified 05/17/24 09:22) DIARRHEA FROM OATMEAL Pioglitazone HCl Adverse Reaction (Intermediate, Uncoded 05/17/24 09:22) edema [facility] Medical History Acute and chronic respiratory failure CHF exacerbation COPD exacerbation Acute kidney failure Acute on chronic heart failure with preserved ejection fraction (HFpEF) Acute on chronic combined systolic (congestive) and diastolic (congestive) heart failure Acute hypoxemic respiratory failure Acute on chronic diastolic (congestive) heart failure Hearing loss CHF (congestive heart failure) Iron deficiency anemia Left hemiparesis Cardiac pacemaker in situ Diastolic dysfunction Ear discomfort Otitis media Moderate asthma Pure hypercholesterolemia Osteoporosis B12 deficiency Gallstones GERD (gastroesophageal reflux disease) Hypovitaminosis D History of stroke Diabetes mellitus Essential hypertension Surgical History History of pacemaker Family History Father No problems noted. Mother No problems noted. Social History Household Members: Family Housing: House Housing Other:: lives with daughter Are you a primary customer care associate to a significant other at home: No Do you presently have visiting nurse or other home services: Yes (PT and Nursing) Alcohol intake: never Patient Tobacco Use Status: Former Tobacco user Tobacco use type: Cigarette e-Cigarette/Vaping Use: Never Used Second Hand Smoke Exposure: No Advance Directives Date on File: 07/02/21 service: No Current occupational status: disabled Cognitive needs: Yes (walker) Hearing needs: No Vision needs: Yes (glasses) Office Procedures Cardiac Device Check Cardiac Device Check Details: Remote pacemaker report generated 07/10/2024. Pacemaker function is adequate [id number] Cardiac Device Interrogation, pacemaker Procedure code (CPT) selection complete Assessment & Plan Assessment & Plan (1) Cardiac pacemaker in situ: Code(s): Z95.0 - Presence of cardiac pacemaker Category: Medical Plan: See above Coding Level of Care Code Procedure Only Diagnoses Cardiac pacemaker in situ Z95.0 CPT Codes Cardiac Device Check - Cardiac Device 12: [id number] Cardiac Device Interrogation, pacemaker ([id number])
== END ==
PROVIDERS: PCP Internal Medicine; Visit Provider Internal Medicine Cardiovascular Disease
DX: Z45.018 Encounter for adjustment and management of other part of cardiac pacemaker (principal)
CPT/HCPCS: 93294

== ENCOUNTER 2024-07-12 07:58 | Outpatient (AMB) | payer OTHER, SELFPAY ==
--- OUTSIDE RECORDS SUMMARY | 2024-07-12 08:01 | XMS_ITS | Clinical Summary ---
Author Organization [facility] Address [address] [place] [address] Phone Care Team Providers Care Language And Literature Division Chair Name Role Phone Yoselyn Figueroa MD Primary Care Provider Allergies No known active allergies Medications albuterol [...] patient's age to complete this topic Insurance [facility] ([id number]) [facility] ([id number]) Care Teams Language And Literature Division Chair Relationship Specialty Start Date End Date Yoselyn Figueroa MD [address] [place], [place] PCP - General 03/18/20
--- NOTE | 2024-07-12 08:02 | MHC.PC.OV ---
Vital Signs 07/12/24 08:03 Height 5 ft 2 in Weight 142 lb BMI 26.0 BP 108/64 Blood Pressure Location Lt brachial Position Sitting Intake Visit Reasons: 4 Month F/U Transfill Technician Required: No Accompanied by: Grand Child Allergies egg [EGG] Adverse Reaction (Intermediate, Verified 07/12/24 08:17) DIARRHEA oats [OATS] Adverse Reaction (Intermediate, Verified 07/12/24 08:17) DIARRHEA FROM OATMEAL Pioglitazone HCl Adverse Reaction (Intermediate, Uncoded 07/12/24 08:17) edema Medication List - Last Reconciled 07/12/24 by Yoselyn Millan MD albuterol sulfate 90 mcg/actuation (Ventolin HFA) 2 puffs inhalation Q6H PRN 30 days alendronate (Fosamax) 70 mg PO SHAW@0900 amlodipine 10 mg PO DAILY atorvastatin 80 mg PO DAILY blood sugar diagnostic (FreeStyle Lite Strips) Use 1 test strip once a day blood sugar diagnostic (FreeStyle Lite Strips) Use 1 test strip once a day blood-glucose meter (FreeStyle [place] Lite kit) As directed cetirizine 10 mg (10 mL) PO DAILY PRN 30 days citalopram 20 mg PO DAILY 90 days compr.stocking,knee,long,large As directed cyanocobalamin (vitamin B-12) (Vitamin B-12) 1,000 mcg PO MOWEFR@0900 doxazosin (Cardura) 2 mg PO DAILY empagliflozin (Jardiance) 10 mg PO DAILY ergocalciferol (vitamin D2) (Vitamin D2) 1,250 mcg PO SHAW@0900 ferrous sulfate (iron) 325 mg PO DAILY 90 days fluticasone propion-salmeterol 115-21 mcg/actuation (Advair HFA) 2 puffs inhalation Q12H fluticasone propion-salmeterol 230-21 mcg/actuation (Advair HFA) 2 puffs inhalation Q12H furosemide 80 mg PO DAILY 30 days hospital bed As directed hydralazine 100 mg PO BID hydrocortisone 1% (Anti-Itch (hydrocortisone)) 1 appl topical BID PRN 2 weeks levalbuterol HCl 1.25 mg (3 mL) inhalation Q4-6H PRN loratadine 10 mg PO DAILY losartan 25 mg PO DAILY magnesium oxide 500 mg PO DAILY 30 days meclizine 25 mg PO TID PRN 30 days metformin ER 1,000 mg (2 x 500 mg) PO DAILY 90 days metoprolol succinate ER 100 mg PO DAILY 90 days niacin ER 500 mg PO BEDTIME 90 days omeprazole 20 mg PO DAILY@0630 oxybutynin chloride ER 10 mg PO DAILY Tobacco use date assessed: 07/12/24 Fall risk assessment: No Falls in past year Last assessed Fall Risk: 07/12/24 Dental Screening Dental Screen Date: 07/12/24 Did you have a dental visit in the last 12 months?: No Did you have a dental problem in the last 6 months where you did not have access to dental care?: No Was dental information given to patient?: No HPI HPI Comments History of Present Illness Details The patient is an 79-year-old female presenting with a cough. Recently developed a persistent nocturnal cough lasting about two weeks without accompanying fever or other significant respiratory symptoms. She has a history of type 2 diabetes mellitus, managed with metformin and Jardiance, with a recent HbA1c slightly elevated at 7.1%, prompting a dosage adjustment. The patient has COPD and uses inhalers including Advair for management. She also experiences congestive heart failure, with recent concerns for her ejection fraction remaining within normal limits noted through prior echocardiograms. Her history includes a cerebrovascular accident several years ago, resulting in residual left hemiparesis and affecting mobility, hence the use of a cane. A walker has been considered beneficial for balance issues. Head CT showing right middle cerebral artery and right posterior cerebral artery. Notably diagnosed with pneumonia requiring hospitalization, she underwent a chest CT. The patient is also managing osteoporosis with bisphosphonates, specifically Fosamax, and has scheduled a bone density test. Depression is medicated with citalopram. Discussed allergen management through cetirizine, with an observed preference for liquid form. Complains of right leg pain and will have ultrasound venous duplex to rule out DVT today. Also has some memory issues that has been present for few months with history of stroke most likely due to vascular dementia and will be referred to Neurology. Will have chest x-ray for her nagging cough. Bilateral hearing loss and will order a hearing test. [facility] Medical History (Updated 07/12/24 @ 09:22 by Yoselyn Millan MD) Acute and chronic respiratory failure CHF exacerbation COPD exacerbation Acute kidney failure Acute on chronic heart failure with preserved ejection fraction (HFpEF) Acute on chronic combined systolic (congestive) and diastolic (congestive) heart failure Acute hypoxemic respiratory failure Acute on chronic diastolic (congestive) heart failure Hearing loss CHF (congestive heart failure) Iron deficiency anemia Left hemiparesis Cardiac pacemaker in situ Diastolic dysfunction Ear discomfort Otitis media Moderate asthma Pure hypercholesterolemia Osteoporosis B12 deficiency Gallstones GERD (gastroesophageal reflux disease) Hypovitaminosis D History of stroke Diabetes mellitus Essential hypertension Surgical History History of pacemaker Family History Father No problems noted. Mother No problems noted. Social History Household Members: Family Housing: House Housing Other:: lives with daughter Are you a primary career advisor to a significant other at home: No Do you presently have visiting nurse or other home services: Yes (PT and Nursing) Alcohol intake: never Patient Tobacco Use Status: Former Tobacco user Tobacco use type: Cigarette e-Cigarette/Vaping Use: Never Used Second Hand Smoke Exposure: No Advance Directives Date on File: 07/02/21 service: No Current occupational status: disabled Cognitive needs: Yes (walker) Hearing needs: No Vision needs: Yes (glasses) Questionnaire PHQ-9 Over the last 2 weeks, how often have you been bothered by any of the following problems? 1. Little interest or pleasure in doing things: not at all 2. Feeling down, depressed, or hopeless: not at all 3. Trouble falling or staying asleep, or sleeping too much: not at all 4. Feeling tired or having little energy: not at all 5. Poor appetite or overeating: not at all 6. Feeling bad about yourself - or that you are a failure or have let yourself or your family down: not at all 7. Trouble concentrating on things, such as reading the newspaper or watching television: not at all 8. Moving or speaking so slowly that other people could have noticed. Or the opposite - being so fidgety or restless that you have been moving around a lot more than usual: not at all 9. Thoughts that you would be better off or of hurting yourself in some way: not at all Total score: 0 Depression Screening Interpretation: Negative Depression Screening Done: Yes 73798 - PHQ-9 Billing: Yes Source: Developed by Drs. Prashanth Cuevas, Elia Benoit and colleagues, with an educational jayy from [employer]. Thrive Questionnaire Date Thrive assessed: 07/11/24 I am a: Patient What is your living situation today?: I have a steady place to live Within the past 12 months, did the food you bought not last and you didn't have the money to get more?: Never true Within the past 12 months, did you worry whether your food would run out before you got money to buy more?: Never true Do you have trouble paying for medicines?: No Do you have trouble getting transportation to medical appointments?: No Do you have trouble paying your heating and electricity bill?: No Do you have trouble taking care of your child, family member or friend?: No Do you have trouble with day-to-day activities such as bathing, preparing meals, shopping, managing finances, etc.?: No Are you currently unemployed and looking for a job?: No Are you interested in more education?: No Please select the resources that you would like help with: None Currently or been in a relationship where the following occur: No concerns reported THRIVE Score: 0 AUDIT C Alcohol Use Questionnaire (AUDIT-C) 1. How often do you have a drink containing alcohol?: Never Total Score: 0 Score Reviewed/Action Taken: No ELBA-7 AMB Questionnaire ELBA-7 Date ELBA - 7 assessed: 07/12/24 Feeling nervous, anxious, or on edge: 0 = Not at all Not being able to stop or control worryin = Not at all Worrying too much about different things: 0 = Not at all Trouble relaxin = Not at all Being so restless that it is hard to sit still: 0 = Not at all Becoming easily annoyed or irritable: 0 = Not at all Feeling afraid as if something awful might happen: 0 = Not at all Total ELBA-7 score (0-4 normal; 5-9 mild; 10-14 moderate; 15-21 severe): 0 Source: Developed by Avelina Scott Kurt Kroenke and colleagues, with an educational jayy from [employer]. ELBA-7 Assessment Billing ELBA-7 Assessment Tool: ELBA-7 Assessment 32134 Review of Systems Const All systems reviewed & are unremarkable except as noted in HPI and below Card Denies chest pain at rest, Denies chest pain with activity, Denies edema, Denies irregular heart rhythm, Denies claudication, Denies dyspnea, Denies dyspnea on exertion, Denies orthopnea, Denies paroxysmal nocturnal dyspnea and Denies slow heart rate Resp Denies cough, Denies dyspnea and Denies dyspnea on exertion GI Denies abdominal pain, Denies change in bowel habits, Denies excessive flatus, Denies nausea and Denies vomiting Neuro Reports confusion Psych Reports confusion Physical exam (Primary Care) Vital Signs: Last Vital Signs BP 108/64 07/12/24 08:03 BMI result Body Mass Index 26.0 Tobacco/Smoking Status: Tobacco use Status Tobacco use date assessed 07/12/24 07/12/24 08:12 Patient Tobacco Use Status Former Tobacco user 07/12/24 08:12 Tobacco use type Cigarette 07/12/24 08:12 e-Cigarette/Vaping Use Never Used 07/12/24 08:12 PHQ-9: PHQ-9 Score PHQ-9: Total score 0 07/12/24 08:20 Depression Screening Interpretation: Negative Thrive Assessment: Date of Thrive Assessment Date Thrive assessed 07/11/24 07/12/24 08:12 Currently or been in a relationship where the following occur: No concerns reported Const General: cooperative and confusion Orientation/consciousness: confusion Resp Effort & Inspection: normal respiratory effort Auscultation: clear to auscultation bilaterally Cardio Jugular venous distension: no JVD Rate: regular rate Rhythm: regular rhythm Heart sounds: S1 normal heart sound present and S2 normal heart sound present Neuro General: confusion Motor exam (neuro): Abnormal motor strength present (3/5 left side, 5/5 right) Results AMB Hemoglobin A1c AMB Hemoglobin A1c 7.1 % Last Edit by TREVA Jackson on 07/12/24 08:20 Results Reviewed Results Reviewed: Laboratory Last Values Hgb A1c (Clinic) 7.1 % (4.0-6.0) H 07/12/24 08:02 Coding Level of Care Code Est Pt Level 4 (16645) Complex EM visit Add On G2211 Diagnoses Chronic obstructive pulmonary disease, unspecified COPD type J44.9 COPD type: unspecified COPD Hearing loss H91.90 Right leg pain M79.604 Memory loss R41.3 Chronic diastolic congestive heart failure I50.32 Heart failure chronicity: chronic Heart failure type: diastolic Mild recurrent major depression F33.0 Left hemiparesis G81.94 Type 2 diabetes mellitus without complication, without long-term current use of insulin E11.9 Diabetes mellitus type: type 2 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 insulin use: without fpc use Diabetes mellitus complication status: without complication History of stroke Z86.73 Essential hypertension I10 Additional Codes ELBA-7 Assessment Billing - ELBA-7 Assessment Tool: ELBA-7 Assessment 96814 ([id number]) PHQ-9 - 52584 - PHQ-9 Billing: Yes ([id number]) Time Spent (min) 28 Assessment & Plan Assessment & Plan (1) COPD (chronic obstructive pulmonary disease): Code(s): J44.9 - Chronic obstructive pulmonary disease, unspecified Category: Medical Qualifiers: COPD type: unspecified COPD Qualified Code(s): J44.9 - Chronic obstructive pulmonary disease, unspecified (2) Hearing loss: Code(s): H91.90 - Unspecified hearing loss, unspecified ear Category: Medical (3) Right leg pain: Code(s): M79.604 - Pain in right leg Category: Medical (4) Memory loss: Code(s): R41.3 - Other amnesia Category: Medical (5) CHF (congestive heart failure): Code(s): I50.9 - Heart failure, unspecified Category: Medical Qualifiers: Heart failure chronicity: chronic Heart failure type: diastolic Qualified Code(s): I50.32 - Chronic diastolic (congestive) heart failure (6) Mild recurrent major depression: Code(s): F33.0 - Major depressive disorder, recurrent, mild Category: Medical (7) Left hemiparesis: Code(s): G81.94 - Hemiplegia, unspecified affecting left nondominant side Category: Medical (8) Diabetes mellitus: Code(s): E11.9 - Type 2 diabetes mellitus without complications Category: Medical Qualifiers: Diabetes mellitus type: type 2 Diabetes mellitus fpc insulin use: without fpc use Diabetes mellitus complication status: without complication Qualified Code(s): E11.9 - Type 2 diabetes mellitus without complications (9) History of stroke: Code(s): Z86.73 - Personal history of transient ischemic attack (TIA), and cerebral infarction without residual deficits Category: Medical (10) Essential hypertension: Code(s): I10 - Essential (primary) hypertension Category: Medical Plan Implemented benzonatate for cough relief, augmenting allergy treatment with cetirizine. COPD management remains with inhalers alongside pneumonia precautions. Stability observed in cardiac function, with NT-ProBNP indicating heart failure; echocardiogram arranged. Strengthened diabetic control with increased metformin. Neurology referral sought for vascular dementia exploration. Osteoporosis monitored with bone density assessment, Fosamax sustained. Hypertension medications revised due to potential cough exacerbation. Depression steady under citalopram; atorvastatin continuing for lipids. Patient informed of vaccination status, ensuring health maintenance. Arranged repeat labs for close monitoring of glucose, lipids, and renal metrics. Patient was informed and verbally consented to the use of an ambient scribe for clinic note documentation during this visit.We discussed pulmonary symptoms, focusing on potential causes for the patient's cough, considering medication side-effects and allergens. Benzonatate was prescribed to alleviate discomfort. Educated on the importance of consistent inhaler use due to COPD history. Congestive heart failure implications were considered, emphasizing the significance of repeat echocardiography. Advised on adjustments to diabetes management, addressing slight HbA1c elevation with metformin modification. Broached vascular dementia diagnosis, pursuing further neurology consultation. Reinforced the rationale behind Fosamax use for osteoporotic integrity alongside plans for updated bone densitometry. Vaccination status reviewed, confirming adherence to prophylactic schedules. Provided thorough diabetic education and discussed blood pressure management adjustments. Informed of potential hydralazine-induced cough, possibly necessitating future antihypertensive modification. Orders: Orders AMB Hemoglobin A1c Today E11.9 - Type 2 diabetes mellitus without complications XR DEXA axial skeleton Today Z78.0 - Asymptomatic menopausal state CA echo transthoracic complete Today I50.32 - Chronic diastolic (congestive) heart failure US venous duplex LE RT Today M79.604 - Pain in right leg Referrals Neurology Referral G81.94 - Hemiplegia, unspecified affecting left nondominant side, R41.3 - Other amnesia, Z86.73 - Personal history of transient ischemic attack (TIA), and cerebral infarction without residual deficits Speech and Hearing Referral H91.90 - Unspecified hearing loss, unspecified ear Medications: New cetirizine (All Day Allergy (cetirizine)) 10 mg PO DAILY 90 days PRN 90 tabs 1RF allergy symptoms benzonatate 100 mg PO BID 5 days PRN 10 caps 0RF cough aspirin 81 mg PO DAILY 90 days 90 tabs 1RF Z86.73 - Personal history of transient ischemic attack (TIA), and cerebral infarction without residual deficits Changed From metformin ER 1,000 mg (2 x 500 mg) PO DAILY 90 days 180 tabs 3RF To metformin ER 1,500 mg (3 x 500 mg) PO DAILY 90 days 270 tabs 3RF From cyanocobalamin (vitamin B-12) (Vitamin B-12) 1,000 mcg PO MOWEFR@0900 12 tabs 0RF To cyanocobalamin (vitamin B-12) (Vitamin B-12) 1,000 mcg PO .once a week 30 days 4 tabs 6RF From ferrous sulfate (iron) 325 mg PO DAILY 90 days 90 tabs 0RF To ferrous sulfate (iron) 325 mg PO Q OTHER DAY 90 days 45 tabs 0RF Discontinued loratadine Discontinued Reason: Patient Completed Course 10 mg PO DAILY 90 caps 3RF meclizine Discontinued Reason: Patient Completed Course 25 mg PO TID 30 days PRN 90 tabs 0RF dizziness Patient Instructions: - Take benzonatate as prescribed for cough relief. - Use inhalers consistently and as directed. - Monitor blood sugar levels; take diabetes medication as adjusted. - Schedule and attend neurology referral. - Continue osteoporosis medication; schedule bone density scan. - Maintain current vaccination schedule. - Report increased coughing or new symptoms. - Follow up in four months for comprehensive evaluation.
[2024-07-12 08:03] VITALS: BP 108/64; BMI 26.0
== END 2024-07-12 08:47 | disposition home or self-care (01) ==
LOC: HO.HMCH 07:59
PROVIDERS: PCP Internal Medicine; Visit Provider Internal Medicine
DX: J44.9 Chronic obstructive pulmonary disease, unspecified (principal); I50.32 Chronic diastolic (congestive) heart failure; G81.94 Hemiplegia, unspecified affecting left nondominant side; E11.9 Type 2 diabetes mellitus without complications; H91.93 Unspecified hearing loss, bilateral; M79.604 Pain in right leg; R41.3 Other amnesia; F33.0 Major depressive disorder, recurrent, mild; Z86.73 Personal history of transient ischemic attack (TIA), and cerebral infarction without residual deficits; I10 Essential (primary) hypertension

== ENCOUNTER → 2024-07-12 07:58 | Outpatient (BNVA) | payer OTHER, SELFPAY | PROVIDERS: PCP Internal Medicine; Visit Provider Internal Medicine | DX: Z13.89 Encounter for screening for other disorder (principal) | CPT/HCPCS: 83036; 96127; 99212 ==

== ENCOUNTER 2024-07-12 11:58 | Outpatient (REF) | payer OTHER, SELFPAY ==
--- NOTE | ~2024-07-12 | US_ITS ---
EXAMINATION: US TRIPLEX LOWER EXTREMITY, RIGHT CLINICAL INFORMATION: Pain, right lower extremity COMPARISON: None available. TECHNIQUE: Color-flow triplex imaging with spectral analysis and compression Doppler were performed on the right lower extremity. FINDINGS: Respiratory variation, normal compression and augmented flow are noted throughout the interrogated common femoral vein, superficial femoral vein, profunda femoral vein, popliteal vein and midcalf peroneal and posterior tibial venous segments . There is no Garcia's cyst. 3.5 cm prominent inguinal lymph node. US/US venous duplex LE RT IMPRESSION: No acute deep venous thrombosis involving the right lower extremity.. Negative for DVT Electronically signed by: Damian Calles MD 07/12/2024 01:22 PM EDT
--- OUTSIDE RECORDS SUMMARY | 2024-07-12 13:16 | XMS_ITS | Clinical Summary ---
Author Organization [facility] Address [address] [place] [address] Phone Care Team Providers Care Core Carrier Name Role Phone Yoselyn Figueroa MD Primary Care Provider [phone] Allergies No known active allergies Medications albuterol [...] patient's age to complete this topic Insurance [facility] ([id number]) [facility] ([id number]) Care Teams Core Carrier Relationship Specialty Start Date End Date Yoselyn Figueroa MD [address] [place], [place] PCP - General 03/18/20
== END 2024-07-12 11:59 | disposition home or self-care (01) ==
LOC: HO.US 11:58
PROVIDERS: PCP Internal Medicine; Visit Provider Internal Medicine
DX: M79.604 Pain in right leg (principal); Z13.1 Encounter for screening for diabetes mellitus
CPT/HCPCS: 83036; 93971; 96127; 99212

== ENCOUNTER → 2024-07-12 12:07 | Outpatient (BNV) | payer OTHER, SELFPAY | PROVIDERS: PCP Internal Medicine; Visit Provider Radiology Diagnostic Radiology | DX: M79.661 Pain in right lower leg (principal) | CPT/HCPCS: 93971 ==

== ENCOUNTER 2024-07-27 08:09 | Outpatient (REF) | payer OTHER, SELFPAY ==
--- NOTE | ~2024-07-27 | CT_ITS ---
EXAMINATION: CT CHEST WITHOUT IV CONTRAST INDICATION: Z87.01 - Personal history of pneumonia (recurrent) COMPARISON: Comparison is made with the prior examination dated 05/01/2024. TECHNIQUE: Helical CT scan of the chest was performed without intravenous contrast. Coronal and sagittal reformatted images were generated and reviewed. This CT exam was performed with one or more of the following dose reduction techniques: automated exposure control, adjustment of the mA and/or kV according to patient size, use of iterative reconstruction technique. DLP: 115 mGy-cm CHEST: THYROID: The thyroid is unremarkable. LUNGS: Again seen is biapical pleural and parenchymal scarring. There has been near complete resolution of the previously seen left apical airspace opacity. A small residual opacity remains. There is linear scarring at the right lung base. There are innumerable tiny calcified granulomas scattered throughout both lungs. MEDIASTINUM: There is no mediastinal lymphadenopathy. MEDARDO: Evaluation of the hilar regions is limited by lack of intravenous contrast material. CARDIOVASCULATURE: The heart is mildly enlarged. A pacemaker is seen in place. There is no pericardial effusion. The thoracic aorta is normal in caliber. DEGREE OF CORONARY CALCIFICATION: moderate PLEURA: There is no pleural effusion. No pneumothorax. MAIN AIRWAYS: The mainstem bronchi and proximal branches are patent. AXILLA: There is no axillary lymphadenopathy. BONES AND SOFT TISSUES: Unremarkable UPPER ABDOMEN: The visualized portions of the liver, spleen, and adrenals have an unremarkable unenhanced appearance. There is a small hiatal hernia. CT/CT chest wo IV con IMPRESSION: Near complete resolution of the previously seen left apical airspace opacity. A small residual opacity remains, for which additional follow-up is recommended. Electronically signed by: Prashanth Potter MD 07/27/2024 09:39 AM EDT
--- OUTSIDE RECORDS SUMMARY | 2024-07-27 08:13 | XMS_ITS | Clinical Summary ---
Author Organization [facility] Address [address] [place] [address] Phone Care Team Providers Care Stave Mill Hand Name Role Phone Yoselyn Figueroa MD Primary Care Provider [phone] Allergies No known active allergies Medications albuterol [...] patient's age to complete this topic Insurance [facility] ([id number]) [facility] ([id number]) Care Teams Stave Mill Hand Relationship Specialty Start Date End Date Yoselyn Figueroa MD [address] [place], [place] PCP - General 03/18/20
== END 2024-07-27 08:10 | disposition home or self-care (01) ==
LOC: HO.CT 08:09
PROVIDERS: PCP Internal Medicine; Visit Provider Nurse Practitioner Family
DX: Z87.01 Personal history of pneumonia (recurrent) (principal)
CPT/HCPCS: 71250

== ENCOUNTER → 2024-07-27 08:13 | Outpatient (BNV) | payer OTHER, SELFPAY | PROVIDERS: PCP Internal Medicine; Visit Provider Radiology Diagnostic Radiology | DX: Z87.01 Personal history of pneumonia (recurrent) (principal) | CPT/HCPCS: 71250 ==

== ENCOUNTER 2024-08-04 09:42 | Outpatient (AMB) | payer OTHER, SELFPAY ==
--- NOTE | 2024-08-04 09:36 | MHC.OFFVIS ---
Vital Signs 08/04/24 09:48 Height 5 ft 2 in Weight 143 lb 8 oz BMI 26.2 BP 142/60 H Blood Pressure Location Lt brachial Position Sitting Pulse 62 Pulse Source Pulse Oximeter Pulse Oximetry (%) 98 Oxygen Delivery Method Room Air Intake Visit Reasons: COPD Allergies egg [EGG] Adverse Reaction (Intermediate, Verified 08/04/24 09:50) DIARRHEA oats [OATS] Adverse Reaction (Intermediate, Verified 08/04/24 09:50) DIARRHEA FROM OATMEAL Pioglitazone HCl Adverse Reaction (Intermediate, Uncoded 08/04/24 09:50) edema HPI HPI COPD: Details: Nedra is a pleasant 79 year old female, former smoker, with 60+ pack year history, quit 5 years ago with underlying asthma/COPD on 2L supplemental oxygen NOC, HTN, DMII, diastolic dysfunction s/p pacer and CVA with left-sided residual hemiparesis. She is accompanied by her granddaughter today. At the last visit, she reported suboptimal control on Advair 115 mcg and was switched to Advair 230 mcg however patient did not obtain. She continues to report dry cough with wheezing and dyspnea on exertion. Denies fevers, chills, or chest congestion. She has been using 2L NOC, previously recommended to use 2L with exertion, however not using and maintaining O2 saturation at home reportedly >92%. Today she presents to review repeat chest CT after treatment for pneumonia as prior CT on 05/01 s/p fall with incidental finding of new 2.3 x 1.8 x 1.7 cm irregularly shaped airspace opacity at the medial aspect of the left lung apex. [facility] Medical History Acute and chronic respiratory failure CHF exacerbation COPD exacerbation Acute kidney failure Acute on chronic heart failure with preserved ejection fraction (HFpEF) Acute on chronic combined systolic (congestive) and diastolic (congestive) heart failure Acute hypoxemic respiratory failure Acute on chronic diastolic (congestive) heart failure Hearing loss CHF (congestive heart failure) Iron deficiency anemia Left hemiparesis Cardiac pacemaker in situ Diastolic dysfunction Ear discomfort Otitis media Moderate asthma Pure hypercholesterolemia Osteoporosis B12 deficiency Gallstones GERD (gastroesophageal reflux disease) Hypovitaminosis D History of stroke Diabetes mellitus Essential hypertension Surgical History History of pacemaker Family History Father No problems noted. Mother No problems noted. Social History Household Members: Family Housing: House Housing Other:: lives with daughter Are you a primary child care lead teacher to a significant other at home: No Do you presently have visiting nurse or other home services: Yes (PT and Nursing) Alcohol intake: never Patient Tobacco Use Status: Former Tobacco user Tobacco use type: Cigarette e-Cigarette/Vaping Use: Never Used Second Hand Smoke Exposure: No Advance Directives Date on File: 07/02/21 service: No Current occupational status: disabled Cognitive needs: Yes (walker) Hearing needs: No Vision needs: Yes (glasses) Review of Systems Const Denies chills, Denies excessive sweating, Denies fever(s), Denies headache(s) and Denies night sweats Eyes Denies dry eyes, Denies irritation and Denies itchy eyes ENT Reports Normal hearing present, Denies headache(s), Denies nasal congestion, Denies nasal discharge, Denies post nasal drip and Denies sore throat Card Denies chest pain, Denies chest pain at rest, Denies chest pain with activity, Denies claudication, Denies leg edema, Reports dyspnea on exertion, Denies orthopnea and Denies paroxysmal nocturnal dyspnea Resp Denies chest congestion, Reports cough, Denies hemoptysis, Denies excessive phlegm production, Denies pain on inspiration, Denies pain with cough, Reports dyspnea on exertion and Denies stridor Musc Denies myalgias Neuro Reports Normal hearing present and Denies headache(s) Endo Denies excessive sweating Eric/Lymph Denies lymphadenopathy Aller/Immun Denies itchy eyes and Denies seasonal rhinorrhea Physical Exam Vital Signs: Last Vital Signs Pulse 62 08/04/24 09:48 BP 142/60 H 08/04/24 09:48 Pulse Ox 98 08/04/24 09:48 Oxygen Delivery Method Room Air 08/04/24 09:48 BMI result Body Mass Index 26.2 Const General: cooperative, healthy appearing, comfortable, no acute distress, well developed and alert Nutritional Appearance: obese Orientation/consciousness: patient oriented x3 Limitations: ambulation with cane HEENT Head: Yes normal to inspection, Yes normocephalic and Yes atraumatic Ears: hearing grossly normal bilaterally and external ears normal Eyes General: appearance normal, both eyes and all related structures Eyelids: Yes eyelids normal Sclerae: sclerae normal EOM: EOMs intact bilaterally Neck Neck: Yes normal visual inspection and Yes no lymphadenopathy Lymphatic: no lymphadenopathy noted Chest Chest palpation & inspection: normal inspection of the chest Resp Effort & Inspection: normal respiratory effort, able to speak in complete sentences, no audible wheezes, no cough, no stridor, not tachypneic, no tripod positioning and no use of accessory muscles Auscultation: no wheezes and diminished lung sounds Cardio Jugular venous distension: no JVD Rate: regular rate Rhythm: regular rhythm Skin Other: warm, dry General skin exam: no rashes or lesions noted Neuro General: patient oriented x3 Cranial nerves: Yes Normal hearing present Cognition (Neuro): normal cognition Gait exam (Neuro): Normal gait present Extrem Other: trace pitting edema BLE Psych Appearance: grossly normal and well kempt Speech and movement: Normal speech and movement present and Clear speech present Affect: normal affect Attitude: cooperative Thought process: Normal thought process present Thought content: Normal thought content present Insight: Good insight present (Psych) Judgement: Good judgement present (Psych) Office Procedures 6 Minute Walk Time:: 10:12 SPO2 % at rest: 100 Pulse at rest: 62 SPO2 % during excercise: 95 Pulse during excercise: 86 SPO2 % after excercise: 97 Pulse after excercise: 77 Distance in yards walked: 75 Radha Score: 3 Performance Observations:: Patient walked on level ground using a quad cane in her right hand..gait is slow. Patient walked for the entire 6 minutes maintaining O2 saturation of 95% or above and pulse rate of 86 or lower. No shortness of breath noted. Did not require the use of supplemental oxygen. [address] - 6 Minute Walk Results Reviewed Results Reviewed: [address] [address] [address] Scan Report Signed Patient: Nedra Drummond MR#: [id number] : 1945 Acct:[id number] Age/Sex: 79 / F ADM Date: 07/27/24 Loc: HO.CT Attending Dr: Phuong Stucenski TEST FIXTURE DESIGNER Ordering Physician: Phuong Acharya NP Date of Service: 07/27/24 Procedure(s): CT chest wo IV con Accession Number(s): [id number] cc: Yoselyn Figueroa MD; Phuong Acharya NP~ Report Number: [id number]: Total DLP = 115.00 mGy-cm EXAMINATION: CT CHEST WITHOUT IV CONTRAST INDICATION: Z87.01 - Personal history of pneumonia (recurrent) COMPARISON: Comparison is made with the prior examination dated 05/01/2024. TECHNIQUE: Helical CT scan of the chest was performed without intravenous contrast. Coronal and sagittal reformatted images were generated and reviewed. This CT exam was performed with one or more of the following dose reduction techniques: automated exposure control, adjustment of the mA and/or kV according to patient size, use of iterative reconstruction technique. DLP: 115 mGy-cm CHEST: THYROID: The thyroid is unremarkable. LUNGS: Again seen is biapical pleural and parenchymal scarring. There has been near complete resolution of the previously seen left apical airspace opacity. A small residual opacity remains. There is linear scarring at the right lung base. There are innumerable tiny calcified granulomas scattered throughout both lungs. MEDIASTINUM: There is no mediastinal lymphadenopathy. MEDARDO: Evaluation of the hilar regions is limited by lack of intravenous contrast material. CARDIOVASCULATURE: The heart is mildly enlarged. A pacemaker is seen in place. There is no pericardial effusion. The thoracic aorta is normal in caliber. DEGREE OF CORONARY CALCIFICATION: moderate PLEURA: There is no pleural effusion. No pneumothorax. MAIN AIRWAYS: The mainstem bronchi and proximal branches are patent. AXILLA: There is no axillary lymphadenopathy. BONES AND SOFT TISSUES: Unremarkable UPPER ABDOMEN: The visualized portions of the liver, spleen, and adrenals have an unremarkable unenhanced appearance. There is a small hiatal hernia. CT/CT chest wo IV con IMPRESSION: Near complete resolution of the previously seen left apical airspace opacity. A small residual opacity remains, for which additional follow-up is recommended. Electronically signed by: Prashanth Potter MD 07/27/2024 09:39 AM EDT RP Dictated By: Prashanth Potter MD Signed By: <Electronically signed by Prashanth Potter MD in OV> 07/27/24 0939 DD/ 0834 TD/TT: 07/27/2414 Rug Receiving Clerk: Assessment & Plan Assessment & Plan (1) COPD (chronic obstructive pulmonary disease): Code(s): J44.9 - Chronic obstructive pulmonary disease, unspecified Category: Medical Qualifiers: COPD type: unspecified COPD Qualified Code(s): J44.9 - Chronic obstructive pulmonary disease, unspecified (2) CHF (congestive heart failure): Code(s): I50.9 - Heart failure, unspecified Category: Medical Qualifiers: Heart failure chronicity: chronic Heart failure type: diastolic Qualified Code(s): I50.32 - Chronic diastolic (congestive) heart failure (3) History of recent pneumonia: Code(s): Z87.01 - Personal history of pneumonia (recurrent) Category: Medical Plan Reviewed repeat CT which revealed near complete resolution of the previously seen left apical airspace opacity. A small residual opacity remains, for which additional follow-up is recommended. Will repeat CT in 3 months. Nedra continues to report suboptimal control of respiratory symptoms on Advair 115mcg, aware of increased dose to 230 mcg. Will call if unable to obtain. 6MWT performed and patient does not require supplemental with exertion, continue 2L NOC. All questions were answered and patient is in agreement of plan. Will follow up in 8-10 weeks or sooner if needed. Orders: Orders AMB 6 minute walk Today J44.9 - Chronic obstructive pulmonary disease, unspecified CT chest wo IV con 3 Months Z87.01 - Personal history of pneumonia (recurrent) Medications: Refilled fluticasone propion-salmeterol 230-21 mcg/actuation (Advair HFA) 2 puffs inhalation Q12H 12 grams 3RF Discontinued fluticasone propion-salmeterol 115-21 mcg/actuation (Advair HFA) Discontinued Reason: Patient Completed Course 2 puffs inhalation Q12H 12 grams 6RF Coding Level of Care Code Est Pt Level 4 (25748) Diagnoses Chronic obstructive pulmonary disease, unspecified COPD type J44.9 COPD type: unspecified COPD Chronic diastolic congestive heart failure I50.32 Heart failure chronicity: chronic Heart failure type: diastolic History of recent pneumonia Z87.01 CPT Codes Coding ([id number])
[2024-08-04 09:48] VITALS: BP 142/60; PULSE 62; O2SAT 98; BMI 26.2
--- OUTSIDE RECORDS SUMMARY | 2024-08-04 10:05 | XMS_ITS | Clinical Summary ---
Author Organization [facility] Address [address] [place] [address] Phone Care Team Providers Care Tattoo Technician Name Role Phone Yoselyn Figueroa MD Primary Care Provider [phone] Allergies No known active allergies Medications albuterol [...] patient's age to complete this topic Insurance [facility] ([id number]) [facility] ([id number]) Care Teams Tattoo Technician Relationship Specialty Start Date End Date Yoselyn Figueroa MD [address] [place], [place] PCP - General 03/18/20
[2024-08-04 10:29] VITALS: PULSE 62; O2SAT 100
== END 2024-08-04 10:19 | disposition home or self-care (01) ==
LOC: HO.HPSW 09:42
PROVIDERS: PCP Internal Medicine; Visit Provider Nurse Practitioner Family
DX: J44.9 Chronic obstructive pulmonary disease, unspecified (principal); I50.32 Chronic diastolic (congestive) heart failure; Z87.01 Personal history of pneumonia (recurrent)
CPT/HCPCS: 94618; 99214

== ENCOUNTER → 2024-08-04 09:42 | Outpatient (BNVA) | payer OTHER, SELFPAY | PROVIDERS: PCP Internal Medicine; Visit Provider Nurse Practitioner Family | DX: J44.9 Chronic obstructive pulmonary disease, unspecified (principal); I50.32 Chronic diastolic (congestive) heart failure; Z87.01 Personal history of pneumonia (recurrent) | CPT/HCPCS: 94618; 99212 ==

== ENCOUNTER → 2024-08-30 08:51 | Outpatient (REF) | payer OTHER, SELFPAY ==
--- NOTE | 2024-08-30 08:55 | CA_ITS ---
Transthoracic Echocardiogram Patient (Last, First, Middle): Nedra Drummond, Gender: Female Date of : 1945 Age: 79 Procedure Date: 08/30/2024 Procedure Type: Transthoracic Echocardiogram Location: OP Height: 157.48 cm Weight: 64.86 kg BSA: 1.66 m2 Heart Rate: bpm BP: 142 / 60 mmHg Robotics Testing Technician: QUAN Referring MD: Yoselyn Millan MD Symptoms: I50.32 - Chronic diastolic (congestive) heart failure Study Quality: Adequate ECG Rhythm: Sinus Conclusions: - The calculated ejection fraction is 61% by biplane method. There is no evidence of regional wall motion abnormalities. - Evidence suggests grade II (moderate) diastolic dysfunction. - No obvious valvular pathology seen on this study. - Mild pulmonary hypertension is present. - Moderate plaque is seen in the ascending aorta. Findings Left Ventricle Normal left ventricular cavity size. The left ventricular systolic function is normal. The calculated ejection fraction is 61% by biplane method. There is no evidence of regional wall motion abnormalities. Evidence suggests grade II (moderate) diastolic dysfunction. There is mild septal and mild basal asymmetric hypertrophy. Right Ventricle Normal right ventricular cavity size and systolic function. There is a pacemaker wire seen in the right ventricle. Atria The left atrium is mildly dilated. The right atrium is normal in size. Aortic Valve There is a normal trileaflet aortic valve. There is no aortic valve stenosis. There is no aortic valve regurgitation. Mitral Valve The mitral valve appears normal. There is no mitral valve regurgitation. There is no mitral valve stenosis. Pulmonic Valve The pulmonic valve is likely normal. Tricuspid Valve There is mild tricuspid valve regurgitation. Mild pulmonary hypertension is present. Great Vessels The asc aorta is normal in size. Moderate plaque is seen in the ascending aorta. Venous The inferior vena cava is normal in size and collapses less than 50% with inspiration. Pericardium/Pleural There is no evidence of pericardial effusion. Prior Study Comparison No significant change compared to prior study dated: 07/20/2023. Recommendations, Care & Conclusions No obvious valvular pathology seen on this study. Measurements 2D Linear Measurements IVSd: 0.90 0.6-0.9/0.6-1.0 cm LVIDd: 4.28 3.9-5.3/4.2-5.9 cm LVIDd Index: 2.58 2.4-3.2/2.2-3.1 cm/m2 LVIDs: 2.81 2.0-3.6 cm LVPWd: 0.89 0.7-1.1 cm LA Diam: 4.10 2.7-3.8/3.0-4.0 cm LAIDs Index: 2.47 1.5-2.3 cm/m2 LV Mass: 151.29 67-162/88-224 g LV Mass Index: 91.14 43-95/49-115 g/m2 LVOT Diam: 1.80 3.0+(-)1.3 cm 2D Systolic Function EF 4C: 62.00 >55% EF 2C: 61.90 >55% EF BiP: 61.20 >55% Mitral Valve MV Pk E: 1.17 MV PK A: 0.84 MV Decel Time: 170.00 E/A: 1.40 E'Lateral: 4.95 E'Medial: 2.89 E/E' Med: 40.50 E/E' Lat: 23.60 PHT: 50.00 MVA PHT: 4.40 Decel [place]: 6.84 Aortic Valve AoV Pk Filippo: 1.64 AoV Mn Filippo: 1.09 AoV VTI: 0.44 AoV Pk Grad: 11.00 Aov Mn Grad: 5.00 BRITTANEY Cont.VTI: 1.63 LVOT LVOT Pk Filippo: 1.05 LVOT Mn Filippo: 0.73 LVOT VTI: 0.28 LVOT Pk Grad: 4.00 LVOT Mn Grad: 2.00 LVOT Diam: 1.80 LVOT Area: 2.54 Diastolic Function MV Pk E: 1.17 MV Pk A: 0.84 E/A: 1.40 E'Medial: 2.89 E/E' Med: 40.50 E' Laterial: 4.95 E/E' Lat: 23.60 Right Ventricle TAPSE (mm): 24.20 TVS' Filippo: 10.60 Tricuspid Valve TR Pk Filippo: 3.14 TR Pk Grad: 39.00 RA Press: 8.00 RVSP: 47.00 Great Vessels Aorta Sinus of Valsalva: 2.54 2.0-3.5 cm Ao Asc: 2.70 2.1-3.4 cm Updated in Other Vendor System with Status of Final Elliot Keating MD electronically signed on 08/31/2024 10:16:41 AM with status of Final
--- OUTSIDE RECORDS SUMMARY | 2024-08-30 09:24 | XMS_ITS | Clinical Summary ---
Author Organization [facility] Address [address] [place] [address] Phone Care Team Providers Care Rn Urgent Care Name Role Phone Yoselyn Figueroa MD Primary Care Provider [phone] Allergies No known active allergies Medications albuterol [...] patient's age to complete this topic Insurance [facility] ([id number]) [facility] ([id number]) Care Teams Rn Urgent Care Relationship Specialty Start Date End Date Yoselyn Figueroa MD [address] [place], [place] PCP - General 03/18/20
== END ==
LOC: HO.CARD 08:51
PROVIDERS: PCP Internal Medicine; Visit Provider Internal Medicine
DX: I50.32 Chronic diastolic (congestive) heart failure (principal)
CPT/HCPCS: 93306

== ENCOUNTER → 2024-08-30 08:55 | Outpatient (BNV) | payer OTHER, SELFPAY | PROVIDERS: PCP Internal Medicine; Visit Provider Internal Medicine | DX: I27.20 Pulmonary hypertension, unspecified (principal); I50.32 Chronic diastolic (congestive) heart failure; I42.2 Other hypertrophic cardiomyopathy; I36.1 Nonrheumatic tricuspid (valve) insufficiency | CPT/HCPCS: 93306 ==

== ENCOUNTER 2024-09-05 09:49 | Outpatient (REF) | payer OTHER, SELFPAY ==
--- NOTE | ~2024-09-05 | MM_ITS ---
EXAMINATION: DXA BONE DENSITY AXIAL HISTORY: Z78.0 - Asymptomatic menopausal state TECHNIQUE: Duriana Dual energy absorptiometry (DEXA) of the lumbar spine, total left hip, and femoral neck was performed. COMPARISON: Comparison is made with the prior examination dated 12/27/2018. FINDINGS: The bone mineral density of the lumbar spine is 0.708 g/cm2, corresponding to a T-score of -3.9, and a Z-score of -2.1. This is indicative of osteoporosis. This represents a BMD change of -15.1% compared to the prior exam. This is statistically significant. The bone mineral density of the left total hip is 0.939 g/cm2, corresponding to a T-score of -0.5, and a Z-score of 1.5. This is indicative of normal bone mineral density. This represents a BMD change of -3.9% compared to the prior exam. This is statistically significant. The bone mineral density of the left femoral neck is 0.823 g/cm2, corresponding to a T-score of -1.5, and a Z-score of 0.6. This is indicative of osteopenia. This represents a BMD change of -2.4% compared to the prior exam. MM/XR DEXA axial skeleton IMPRESSION: Based on bone mineral density, and according to World Health Organization (WHO) criteria, the diagnosis is consistent with osteoporosis. Statistically, 68% of repeat scans fall within 1 SD (+/- 0.010 g/cm2 for AP spine L1-L4) and 1 SD (+/- 0.012 g/cm2 for femur total) FRAX is a trademark of the [employer], a World Health Organization (WHO) Collaborating Center. Electronically signed by: Prashanth Potter MD 09/05/2024 10:44 AM EDT
--- OUTSIDE RECORDS SUMMARY | 2024-09-05 10:43 | XMS_ITS | Clinical Summary ---
Author Organization [facility] Address [address] [place] [address] Phone Care Team Providers Care Local Combination Truck Driver Name Role Phone Yoselyn Figueroa MD Primary [...] patient's age to complete this topic Insurance [facility] ([id number]) [facility] ([id number]) Care Teams Local Combination Truck Driver Relationship Specialty Start Date End Date Yoselyn Figueroa MD [address] [place], [place] PCP - General 03/18/20
== END 2024-09-05 09:50 | disposition home or self-care (01) ==
LOC: HO.MAMMO 09:49
PROVIDERS: PCP Internal Medicine; Visit Provider Internal Medicine
DX: Z13.820 Encounter for screening for osteoporosis (principal); Z78.0 Asymptomatic menopausal state
CPT/HCPCS: 77080

== ENCOUNTER → 2024-09-05 10:00 | Outpatient (BNV) | payer OTHER, SELFPAY | PROVIDERS: PCP Internal Medicine; Visit Provider Radiology Diagnostic Radiology | DX: E28.39 Other primary ovarian failure (principal) | CPT/HCPCS: 77080 ==

== ENCOUNTER 2024-09-22 10:47 | Outpatient (AMB) | payer OTHER, SELFPAY ==
[2024-09-22 10:52] VITALS: BP 136/70; PULSE 78; O2SAT 97; BMI 25.6
--- NOTE | 2024-09-22 10:52 | MHC.OFFVIS ---
Vital Signs 09/22/24 10:52 Height 5 ft 2 in Weight 140 lb BMI 25.6 BP 136/70 Blood Pressure Location Lt brachial Position Sitting Pulse 78 Pulse Source Pulse Oximeter Pulse Oximetry (%) 97 Oxygen Delivery Method Room Air Intake Visit Reasons: COPD Cosmetology Professor Required: No Adjunct Instructor Chemistry: Adjunct Instructor Chemistry offered & declined Accompanied by: Family/Other Allergies egg (EGG) Adverse Reaction (Intermediate, Verified 09/22/24 10:57) DIARRHEA oats (OATS) Adverse Reaction (Intermediate, Verified 09/22/24 10:57) DIARRHEA FROM OATMEAL Pioglitazone HCl Adverse Reaction (Intermediate, Uncoded 09/22/24 10:57) edema Medication List - Last Reconciled 09/22/24 by Kaitlynn Morris LPN [Adult pull ups As directed] albuterol sulfate 90 mcg/actuation (Ventolin HFA) 2 puffs inhalation Q6H PRN 30 days alendronate (Fosamax) 70 mg PO SHAW@0900 amlodipine 10 mg PO DAILY aspirin 81 mg PO DAILY 90 days atorvastatin 80 mg PO DAILY benzonatate 100 mg PO BID PRN 5 days blood sugar diagnostic (FreeStyle Lite Strips) Use 1 test strip once a day blood sugar diagnostic (FreeStyle Lite Strips) Use 1 test strip once a day blood-glucose meter (FreeStyle [place] Lite kit) As directed cetirizine (All Day Allergy (cetirizine)) 10 mg PO DAILY PRN 90 days citalopram 20 mg PO DAILY 90 days compr.stocking,knee,long,large As directed cyanocobalamin (vitamin B-12) (Vitamin B-12) 1,000 mcg PO .once a week 30 days doxazosin (Cardura) 2 mg PO DAILY empagliflozin (Jardiance) 10 mg PO DAILY ergocalciferol (vitamin D2) (Vitamin D2) 1,250 mcg PO SHAW@0900 ferrous sulfate (iron) 325 mg PO Q OTHER DAY 90 days fluticasone propion-salmeterol 230-21 mcg/actuation (Advair HFA) 2 puffs inhalation Q12H furosemide 80 mg PO DAILY 30 days [gloves As directed] hospital bed As directed hydralazine 100 mg PO BID hydrocortisone 1% (Anti-Itch (hydrocortisone)) 1 appl topical BID PRN 2 weeks levalbuterol HCl 1.25 mg (3 mL) inhalation Q4-6H PRN losartan 25 mg PO DAILY magnesium oxide 500 mg PO DAILY 30 days metformin ER 1,500 mg (3 x 500 mg) PO DAILY 90 days metoprolol succinate ER 100 mg PO DAILY 90 days niacin ER 500 mg PO BEDTIME 90 days nystatin 1 mL buccal BID PRN 30 days omeprazole 20 mg PO DAILY@0630 oxybutynin chloride ER 10 mg PO DAILY [Power lift chair As directed] sennosides (senna) 8.6 mg PO BEDTIME PRN 30 days simethicone (Gas Relief (simethicone)) 125 mg PO TID PRN 30 days [Wipes As directed] HPI HPI COPD: Details: Nedra is a pleasant 79 year old female, former smoker, with 60+ pack year history, quit 5 years ago with underlying asthma/COPD on 2L supplemental oxygen NOC, HTN, DMII, diastolic dysfunction s/p pacer and CVA with left-sided residual hemiparesis. She is accompanied by her granddaughter today. At the last visit, she reported suboptimal control on Advair 115 mcg and was switched to Advair 230 mcg however patient continues with dyspnea and dry cough. Denies fevers, chills, or chest congestion. 6MWT performed at last visit and no longer requires with exertion, continues with use 2L NOC. [facility] Medical History Acute and chronic respiratory failure CHF exacerbation COPD exacerbation Acute kidney failure Acute on chronic heart failure with preserved ejection fraction (HFpEF) Acute on chronic combined systolic (congestive) and diastolic (congestive) heart failure Acute hypoxemic respiratory failure Acute on chronic diastolic (congestive) heart failure Hearing loss CHF (congestive heart failure) Iron deficiency anemia Left hemiparesis Cardiac pacemaker in situ Diastolic dysfunction Ear discomfort Otitis media Moderate asthma Pure hypercholesterolemia Osteoporosis B12 deficiency Gallstones GERD (gastroesophageal reflux disease) Hypovitaminosis D History of stroke Diabetes mellitus Essential hypertension Surgical History History of pacemaker Family History Father No problems noted. Mother No problems noted. Social History Household Members: Family Housing: House Housing Other:: lives with daughter Are you a primary child care to a significant other at home: No Do you presently have visiting nurse or other home services: Yes (PT and Nursing) Alcohol intake: never Patient Tobacco Use Status: Former Tobacco user Tobacco use type: Cigarette e-Cigarette/Vaping Use: Never Used Second Hand Smoke Exposure: No Advance Directives Date on File: 07/02/21 service: No Current occupational status: disabled Cognitive needs: Yes (walker) Hearing needs: No Vision needs: Yes (glasses) Review of Systems Const Denies chills, Denies excessive sweating, Denies fever(s), Denies headache(s) and Denies night sweats Eyes Denies dry eyes, Denies irritation and Denies itchy eyes ENT Reports Normal hearing present, Denies headache(s), Denies nasal congestion, Denies nasal discharge, Denies post nasal drip and Denies sore throat Card Denies chest pain, Denies chest pain at rest, Denies chest pain with activity, Denies claudication, Denies leg edema, Reports dyspnea on exertion, Denies orthopnea and Denies paroxysmal nocturnal dyspnea Resp Denies chest congestion, Reports cough, Denies hemoptysis, Denies excessive phlegm production, Denies pain on inspiration, Denies pain with cough, Reports dyspnea on exertion and Denies stridor Musc Denies myalgias Neuro Reports Normal hearing present and Denies headache(s) Endo Denies excessive sweating Eric/Lymph Denies lymphadenopathy Aller/Immun Denies itchy eyes and Denies seasonal rhinorrhea Physical Exam Vital Signs: Last Vital Signs Pulse 78 09/22/24 10:52 BP 136/70 09/22/24 10:52 Pulse Ox 97 09/22/24 10:52 Oxygen Delivery Method Room Air 09/22/24 10:52 BMI result Body Mass Index 25.6 Const General: cooperative, healthy appearing, comfortable, no acute distress, well developed and alert Nutritional Appearance: obese Orientation/consciousness: patient oriented x3 Limitations: ambulation with cane HEENT Head: Yes normal to inspection, Yes normocephalic and Yes atraumatic Ears: hearing grossly normal bilaterally and external ears normal Eyes General: appearance normal, both eyes and all related structures Eyelids: Yes eyelids normal Sclerae: sclerae normal EOM: EOMs intact bilaterally Neck Neck: Yes normal visual inspection and Yes no lymphadenopathy Lymphatic: no lymphadenopathy noted Chest Chest palpation & inspection: normal inspection of the chest Resp Effort & Inspection: normal respiratory effort, able to speak in complete sentences, no audible wheezes, no cough, no stridor, not tachypneic, no tripod positioning and no use of accessory muscles Auscultation: clear to auscultation bilaterally and no wheezes Cardio Jugular venous distension: no JVD Rate: regular rate Rhythm: regular rhythm Skin Other: warm, dry General skin exam: no rashes or lesions noted Neuro General: patient oriented x3 Cranial nerves: Yes Normal hearing present Cognition (Neuro): normal cognition Gait exam (Neuro): Normal gait present Extrem Other: trace pitting edema BLE Psych Appearance: grossly normal and well kempt Speech and movement: Normal speech and movement present and Clear speech present Affect: normal affect Attitude: cooperative Thought process: Normal thought process present Thought content: Normal thought content present Insight: Good insight present (Psych) Judgement: Good judgement present (Psych) Assessment & Plan Assessment & Plan (1) COPD (chronic obstructive pulmonary disease): Code(s): J44.9 - Chronic obstructive pulmonary disease, unspecified Category: Medical Qualifiers: COPD type: unspecified COPD Qualified Code(s): J44.9 - Chronic obstructive pulmonary disease, unspecified (2) CHF (congestive heart failure): Code(s): I50.9 - Heart failure, unspecified Category: Medical Qualifiers: Heart failure chronicity: chronic Heart failure type: diastolic Qualified Code(s): I50.32 - Chronic diastolic (congestive) heart failure (3) History of recent pneumonia: Code(s): Z87.01 - Personal history of pneumonia (recurrent) Category: Medical Plan Nedra continues to report suboptimal control of respiratory symptoms on Advair 230 mcg, will switch to Trelegy. Prior CT which revealed near complete resolution of the previously seen left apical airspace opacity. A small residual opacity remains, for which additional follow-up is recommended. Repeat CT in 3 months which is scheduled in October. All questions were answered and patient is in agreement of plan. Will follow up in 6-8 weeks or sooner if needed. Medications: New yklrsgltsyf-fonusxucf-meftbavu 200-62.5-25 mcg (Trelegy Ellipta) 1 inh inhalation DAILY 60 ea 6RF Coding Level of Care Code Est Pt Level 4 (57723) Diagnoses Chronic obstructive pulmonary disease, unspecified COPD type J44.9 COPD type: unspecified COPD Chronic diastolic congestive heart failure I50.32 Heart failure chronicity: chronic Heart failure type: diastolic History of recent pneumonia Z87.01
--- OUTSIDE RECORDS SUMMARY | 2024-09-22 11:18 | XMS_ITS | Clinical Summary ---
Author Organization [facility] Address [address] [place] [address] Phone Care Team Providers Care Duck Bill Operator Name Role Phone Yoselyn Figueroa MD Primary Care Provider [phone] Allergies No known active allergies Medications albuterol [...] - PCV) 09/05/2013 09/05/2012 Influenza Vaccine (#1) 2024 Pneumococcal Vaccine: Peds ( 0 to 5 Years) and At-Risk Patients (6 to 49 Years) Discontinued 09/05/2012 Hepatitis B Vaccine Aged Out No longe r eligible based on patient's age to complete this topic Insurance [facility] ([id number]) [facility] ([id number]) Care Teams Duck Bill Operator Relationship Specialty Start Date End Date Yoselyn Figueroa MD [address] [place], [place] PCP - General 03/18/20
== END 2024-09-22 11:11 | disposition home or self-care (01) ==
LOC: HO.HPSW 10:48
PROVIDERS: PCP Internal Medicine; Visit Provider Nurse Practitioner Family
DX: J44.9 Chronic obstructive pulmonary disease, unspecified (principal); I50.32 Chronic diastolic (congestive) heart failure; Z87.01 Personal history of pneumonia (recurrent)
CPT/HCPCS: 99214

== ENCOUNTER → 2024-09-22 10:47 | Outpatient (BNVA) | payer OTHER, SELFPAY | PROVIDERS: PCP Internal Medicine; Visit Provider Nurse Practitioner Family | DX: I50.32 Chronic diastolic (congestive) heart failure (principal); Z87.01 Personal history of pneumonia (recurrent); J44.9 Chronic obstructive pulmonary disease, unspecified | CPT/HCPCS: 99212 ==

== ENCOUNTER → 2024-10-09 23:59 | Outpatient (BNV) | payer OTHER, SELFPAY ==
--- NOTE | 2024-10-17 09:25 | MHC.OFFVIS ---
Intake Visit Reasons: Remote device check- [facility] Allergies egg (EGG) Adverse Reaction (Intermediate, Verified 09/22/24 10:57) DIARRHEA oats (OATS) Adverse Reaction (Intermediate, Verified 09/22/24 10:57) DIARRHEA FROM OATMEAL Pioglitazone HCl Adverse Reaction (Intermediate, Uncoded 09/22/24 10:57) edema [facility] Medical History Acute and chronic respiratory failure CHF exacerbation COPD exacerbation Acute kidney failure Acute on chronic heart failure with preserved ejection fraction (HFpEF) Acute on chronic combined systolic (congestive) and diastolic (congestive) heart failure Acute hypoxemic respiratory failure Acute on chronic diastolic (congestive) heart failure Hearing loss CHF (congestive heart failure) Iron deficiency anemia Left hemiparesis Cardiac pacemaker in situ Diastolic dysfunction Ear discomfort Otitis media Moderate asthma Pure hypercholesterolemia Osteoporosis B12 deficiency Gallstones GERD (gastroesophageal reflux disease) Hypovitaminosis D History of stroke Diabetes mellitus Essential hypertension Surgical History History of pacemaker Family History Father No problems noted. Mother No problems noted. Social History Household Members: Family Housing: House Housing Other:: lives with daughter Are you a primary small animal caretaker to a significant other at home: No Do you presently have visiting nurse or other home services: Yes (PT and Nursing) Alcohol intake: never Patient Tobacco Use Status: Former Tobacco user Tobacco use type: Cigarette e-Cigarette/Vaping Use: Never Used Second Hand Smoke Exposure: No Advance Directives Date on File: 07/02/21 service: No Current occupational status: disabled Cognitive needs: Yes (walker) Hearing needs: No Vision needs: Yes (glasses) Office Procedures Cardiac Device Check Cardiac Device Check Details: Remote pacemaker report generated 10/09/2024. Pacemaker function is adequate. Few episodes of high atrial rate noted consistent with atrial tachycardia. [id number] Cardiac Device Interrogation, pacemaker Procedure code (CPT) selection complete Assessment & Plan Assessment & Plan (1) Cardiac pacemaker in situ: Code(s): Z95.0 - Presence of cardiac pacemaker Category: Medical Plan: See above Coding Level of Care Code Procedure Only Diagnoses Cardiac pacemaker in situ Z95.0 CPT Codes Cardiac Device Check - Cardiac Device 12: [id number] Cardiac Device Interrogation, pacemaker ([id number])
== END ==
PROVIDERS: PCP Internal Medicine; Visit Provider Internal Medicine Cardiovascular Disease
DX: R00.0 Tachycardia, unspecified (principal); Z95.0 Presence of cardiac pacemaker
CPT/HCPCS: 93294

== ENCOUNTER 2024-10-24 10:03 | Outpatient (AMB) | payer OTHER, SELFPAY ==
--- NOTE | 2024-10-24 10:09 | A.OFFVIS_ITS ---
Vital Signs 10/24/24 10:15 Height 4 ft 11.53 in Weight 138 lb 10.732 oz BMI 27.5 BP 112/54 L Blood Pressure Location Lt brachial Position Sitting Pulse 69 Pulse Source Pulse Oximeter Pulse Oximetry (%) 95 Oxygen Delivery Method Room Air Intake Visit Reasons: Age-related osteoporosis without current pathologi Intake Note: New patient internally referred by PCP for Age-related Osteoporosis, last DEXA was on 09/05/2024 at [facility]. Community Health Director Required: Yes Community Health Director Language: Welt Pocket Machine Operator Services: Community Health Director Offered & Declined Accompanied by: Grand Child Allergies egg (EGG) Adverse Reaction (Intermediate, Verified 10/24/24 10:16) DIARRHEA oats (OATS) Adverse Reaction (Intermediate, Verified 10/24/24 10:16) DIARRHEA FROM OATMEAL Pioglitazone HCl Adverse Reaction (Intermediate, Uncoded 10/24/24 10:16) edema Medication List - Last Reconciled 10/24/24 by Prashanth Garcia MD [Adult pull ups As directed] albuterol sulfate 90 mcg/actuation (Ventolin HFA) 2 puffs inhalation Q6H PRN 30 days alendronate (Fosamax) 70 mg PO SHAW@0900 amlodipine 10 mg PO DAILY aspirin 81 mg PO DAILY 90 days atorvastatin 80 mg PO DAILY benzonatate 100 mg PO BID PRN 5 days blood sugar diagnostic (FreeStyle Lite Strips) Use 1 test strip once a day blood sugar diagnostic (FreeStyle Lite Strips) Use 1 test strip once a day blood-glucose meter (FreeStyle [place] Lite kit) As directed cetirizine (All Day Allergy (cetirizine)) 10 mg PO DAILY PRN 90 days citalopram 20 mg PO DAILY 90 days compr.stocking,knee,long,large As directed cyanocobalamin (vitamin B-12) (Vitamin B-12) 1,000 mcg PO .once a week 30 days doxazosin (Cardura) 2 mg PO DAILY empagliflozin (Jardiance) 10 mg PO DAILY ergocalciferol (vitamin D2) (Vitamin D2) 1,250 mcg PO SHAW@0900 ferrous sulfate (iron) 325 mg PO Q OTHER DAY 90 days fluticasone propion-salmeterol 230-21 mcg/actuation (Advair HFA) 2 puffs inhalation Q12H omriknotpnt-ymgwcmnrl-zhogibma 200-62.5-25 mcg (Trelegy Ellipta) 1 inh inhalation DAILY furosemide 80 mg PO DAILY 30 days [gloves As directed] hospital bed As directed hydralazine 100 mg PO BID hydrocortisone 1% (Anti-Itch (hydrocortisone)) 1 appl topical BID PRN 2 weeks levalbuterol HCl 1.25 mg (3 mL) inhalation Q4-6H PRN losartan 25 mg PO DAILY magnesium oxide 500 mg PO DAILY 30 days metformin ER 1,500 mg (3 x 500 mg) PO DAILY 90 days metoprolol succinate ER 100 mg PO DAILY 90 days niacin ER 500 mg PO BEDTIME 90 days nystatin 1 mL buccal BID PRN 30 days omeprazole 20 mg PO DAILY@0630 oxybutynin chloride ER 10 mg PO DAILY [Power lift chair As directed] sennosides (senna) 8.6 mg PO BEDTIME PRN 30 days simethicone (Gas Relief (simethicone)) 125 mg PO TID PRN 30 days [Wipes As directed] HPI Comments Details: 79 YO Female is seen in consultation at the request of PCP for Osteoporosis. Hx obtained granddaughter pt has dementia First diagnosed in few yrs ago .Never saw specialist before Received treatment in the past with alendronate , from 3-4 yrs and stopped 4 mos ago . Tolerated treatment well without complication. No history of pathologic fracture or ONJ. Has several servings of dietary calcium per day in the form of cereal. Not Takes Calcium supplement Takes 60952 IU of Vitamin D wkly Takes PPI, -anticoagulant, -antiepileptic or- glucocorticoid medication. Does weight bearing exercise [] days per week in the form of []. Fracture history: No Height loss: No FINGER COBBLER history: cannot be obtained Denies history of Kidney stones: Denies family history of Osteoporosis or hip fracture. UTD on dental cleanings and sees dentist every 6 months. No planned upcoming dental work or extractions. ex tobacco use stopped 10 yrs ago . No heavy ETOH abuse Hx of CVA 3-4 yrs ago DXA dated 09/05/24 :EXAMINATION: DXA BONE DENSITY AXIAL HISTORY: Z78.0 - Asymptomatic menopausal state TECHNIQUE: [employer] Dual energy absorptiometry (DEXA) of the lumbar spine, total left hip, and femoral neck was performed. COMPARISON: Comparison is made with the prior examination dated 12/27/2018. FINDINGS: The bone mineral density of the lumbar spine is 0.708 g/cm2, corresponding to a T-score of -3.9, and a Z-score of -2.1. This is indicative of osteoporosis. This represents a BMD change of -15.1% compared to the prior exam. This is statistically significant. The bone mineral density of the left total hip is 0.939 g/cm2, corresponding to a T-score of -0.5, and a Z-score of 1.5. This is indicative of normal bone mineral density. This represents a BMD change of -3.9% compared to the prior exam. This is statistically significant. The bone mineral density of the left femoral neck is 0.823 g/cm2, corresponding to a T-score of -1.5, and a Z-score of 0.6. This is indicative of osteopenia. This represents a BMD change of -2.4% compared to the prior exam. MM/XR DEXA axial skeleton IMPRESSION: Based on bone mineral density, and according to World Health Organization (WHO) criteria, the diagnosis is consistent with osteoporosis. Labs: [facility] Medical History Acute and chronic respiratory failure CHF exacerbation COPD exacerbation Acute kidney failure Acute on chronic heart failure with preserved ejection fraction (HFpEF) Acute on chronic combined systolic (congestive) and diastolic (congestive) heart failure Acute hypoxemic respiratory failure Acute on chronic diastolic (congestive) heart failure Hearing loss CHF (congestive heart failure) Iron deficiency anemia Left hemiparesis Cardiac pacemaker in situ Diastolic dysfunction Ear discomfort Otitis media Moderate asthma Pure hypercholesterolemia Osteoporosis B12 deficiency Gallstones GERD (gastroesophageal reflux disease) Hypovitaminosis D History of stroke Diabetes mellitus Essential hypertension Surgical History History of pacemaker Family History Father No problems noted. Mother No problems noted. Social History Household Members: Family Housing: House Housing Other:: lives with daughter Are you a primary child day care teacher to a significant other at home: No Do you presently have visiting nurse or other home services: Yes (PT and Nursing) Alcohol intake: never Patient Tobacco Use Status: Former Tobacco user Tobacco use type: Cigarette e-Cigarette/Vaping Use: Never Used Second Hand Smoke Exposure: No Advance Directives Date on File: 07/02/21 service: No Current occupational status: disabled Cognitive needs: Yes (walker) Hearing needs: No Vision needs: Yes (glasses) Physical Exam There are no Cushingoid features. Absence of blue sclera. Absence of kyphosis. Thyroid gland is of nl size and weighs 15 gms. There are no thyroid nodules palpated. Lungs CTA. Heart S1 S2 Reg R/R Abdominal exam benign. Muscle strength 5/5 . Examination of spine reveals absence of tenderness on palpation Assessment & Plan Assessment & Plan (1) Osteoporosis: Code(s): M81.0 - Age-related osteoporosis without current pathological fracture Category: Medical Plan: This 79-year-old female with a history of osteoporosis with partial secondary workup. Currently on alendronate Plan is to complete the secondary workup by checking a TSH, free T4, phosphorus, urine immunofixation, 24 hour urine for calcium and creatinine. Will ensure 1200 mg of calcium and continued vitamin-D supplementation. We will also obtain urine NTX . Assuming secondary workup is negative would strongly consider initiating an anabolic agent like Tymlos or Forteo or alternatively Evenity although patient had a CVA several years ago. This would be proceeded by an anti resorptive agent like reinitiating alendronate or giving Reclast once the anabolic is finished. Orders: Orders Free T4 (Free Thyroxine) Today M81.0 - Age-related osteoporosis without current pathological fracture Creatinine, 24 Hr Group Today M81.0 - Age-related osteoporosis without current pathological fracture Calcium, 24 Hr Ur Today M81.0 - Age-related osteoporosis without current pathological fracture Phosphorus Today M81.0 - Age-related osteoporosis without current pathological fracture Immunofixation, Random Urine Today M81.0 - Age-related osteoporosis without current pathological fracture Thyroid Stimulating Hormone Today M81.0 - Age-related osteoporosis without current pathological fracture Collagen Crosslinks NTX Today M81.0 - Age-related osteoporosis without current pathological fracture Medications: New cholecalciferol (vitamin D3) 50 mcg PO DAILY 30 caps 4RF Coding Level of Care Code New Pt Level 4 (51792) Diagnoses Osteoporosis M81.0
[2024-10-24 10:15] VITALS: BP 112/54; PULSE 69; O2SAT 95; BMI 27.5
--- OUTSIDE RECORDS SUMMARY | 2024-10-24 11:15 | XMS_ITS | Clinical Summary ---
Author Organization [facility] Address [address] [place] [address] Phone Care Team Providers Care Size Tester Name Role Phone Yoselyn Figueroa MD Primary Care Provider [phone] Allergies No known active allergies Medications albuterol [...] patient's age to complete this topic Insurance [facility] ([id number]) [facility] ([id number]) Care Teams Size Tester Relationship Specialty Start Date End Date Yoselyn Figueroa MD [address] [place], [place] PCP - General 03/18/20
== END 2024-10-24 10:57 | disposition home or self-care (01) ==
LOC: HO.ENCR 10:03
PROVIDERS: PCP Internal Medicine; Visit Provider Internal Medicine Endocrinology, Diabetes & Metabolism
DX: M81.0 Age-related osteoporosis without current pathological fracture (principal)
CPT/HCPCS: 99204

== ENCOUNTER → 2024-10-24 10:03 | Outpatient (BNVA) | payer OTHER, SELFPAY | PROVIDERS: PCP Internal Medicine; Visit Provider Internal Medicine Endocrinology, Diabetes & Metabolism | DX: M81.0 Age-related osteoporosis without current pathological fracture (principal) | CPT/HCPCS: 99202 ==

== ENCOUNTER 2024-10-26 10:06 | Outpatient (REF) | payer OTHER, SELFPAY ==
--- OUTSIDE RECORDS SUMMARY | 2024-10-26 11:32 | XMS_ITS | Clinical Summary ---
Author Organization [facility] Address [address] [place] [address] Phone Care Team Providers Care Payroll Professional Name Role Phone Yoselyn Figueroa MD Primary Care Provider [phone] Allergies No known active allergies Medications albuterol [...] patient's age to complete this topic Insurance [facility] ([id number]) [facility] ([id number]) Care Teams Payroll Professional Relationship Specialty Start Date End Date Yoselyn Figueroa MD [address] [place], [place] PCP - General 03/18/20
[2024-10-26 12:07] LABS: Free T4 (Free Thyroxine) 1.06 ng/dL (0.71-1.85); Thyroid Stimulating Hormone 1.47 uIU/mL (0.32-4.0)
== END 2024-10-26 10:07 | disposition home or self-care (01) ==
LOC: HO.LAB 10:06
PROVIDERS: PCP Internal Medicine; Visit Provider Internal Medicine Endocrinology, Diabetes & Metabolism
DX: M81.0 Age-related osteoporosis without current pathological fracture (principal)
CPT/HCPCS: 84100; 84439; 84443

== ENCOUNTER 2024-10-30 09:49 | Outpatient (REF) | payer OTHER, SELFPAY ==
--- NOTE | ~2024-10-30 | CT_ITS ---
EXAMINATION: CT CHEST WITHOUT CONTRAST CLINICAL INFORMATION: Personal history of pneumonia, recurrent. Z87.01 COMPARISON: July 27, 2024. TECHNIQUE: Multidetector volumetric CT imaging of the chest was done. Axial MIP volume rendering provided. Sagittal and coronal reformatted images were obtained. This CT examination was performed using dose optimization techniques as appropriate, variously including the following: *Automated exposure control *Adjustment of mA and/or kV according to patient size (this includes techniques or standardized protocols for targeted exams where dose is matched to indication/reason for exam; i.e. extremities or head) *Use of iterative reconstruction technique. DLP: 120 mGy centimeter. 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 Patient's large body habitus. LUNGS: Bilateral, punctate, numerous, less than 1 mm, calcified pulmonary nodules. Pulmonary patchy groundglass, lung bases. Linear attenuation abnormality is in the lung bases lingula. Bilateral apical lung scarring. Respiratory airways patent. MEDIASTINUM: No gross lymphadenopathy, mediastinum. No gross pericardial effusion. Calcified plaques throughout the thoracic aorta its main branches and the coronary arteries. No aneurysm in the thoracic aorta. Electrode leads in the right heart chambers. CORONARY ARTERY CALCIFICATION: Calcified plaques. PLEURA: No pleural effusion. No pneumothorax. No hemothorax. No calcified pleural plaques. AXILLA: No lymphadenopathy. UPPER ABDOMEN: Small hiatal hernia. Contracted gallbladder. Cystic lesions, left kidney. No hydronephrosis. Calcified plaque abdominal aorta wall mesenteric arteries the splenic artery and the origin of the right main renal artery. OSSEOUS STRUCTURES: There is a superior endplate compression deformity representing 50% volume loss at T10, similar since prior exam. Multilevel spondylosis. Osteopenia versus osteoporosis. No acute fracture. CT/CT chest wo IV con IMPRESSION: Questionable airspace disease, right lung base. Prior pulmonary granulomatous disease/histoplasmosis in the correct clinical settings. Coronary artery disease and atherosclerosis disease. Fleischner guidelines were followed. Electronically signed by: Damian Calles MD 10/30/2024 10:48 AM EDT
--- OUTSIDE RECORDS SUMMARY | 2024-10-30 10:44 | XMS_ITS | Clinical Summary ---
Author Organization [facility] Address [address] [place] [address] Phone Care Team Providers Care Flour Blender Helper Name Role Phone Yoselyn Figueroa MD Primary Care Provider [phone] Allergies No known active allergies Medications albuterol [...] patient's age to complete this topic Insurance [facility] ([id number]) [facility] ([id number]) Care Teams Flour Blender Helper Relationship Specialty Start Date End Date Yoselyn Figueroa MD [address] [place], [place] PCP - General 03/18/20
== END 2024-10-30 09:50 | disposition home or self-care (01) ==
LOC: HO.CT 09:49
PROVIDERS: PCP Internal Medicine; Visit Provider Nurse Practitioner Family
DX: Z87.01 Personal history of pneumonia (recurrent) (principal)
CPT/HCPCS: 71250

== ENCOUNTER → 2024-10-30 09:53 | Outpatient (BNV) | payer OTHER, SELFPAY | PROVIDERS: PCP Internal Medicine; Visit Provider Radiology Diagnostic Radiology | DX: I25.10 Atherosclerotic heart disease of native coronary artery without angina pectoris (principal); I70.90 Unspecified atherosclerosis | CPT/HCPCS: 71250 ==

== ENCOUNTER 2024-11-25 07:04 | Outpatient (REF) | payer OTHER, SELFPAY ==
[2024-11-25 07:21] LABS: MANUAL DIFF FLAG NO
[2024-11-25 08:24] LABS: Hematocrit 39.7 % (37.0-47.0); Hemoglobin 12.3 g/dl (12.0-16.0); Imm Gran Abs Auto 0.03 X10*3/uL (0.00-0.03); Imm Gran Pct Auto 0.4 % (0.0-0.4); Lymphocytes Absolute Auto 1.8 X10*3/uL (1.2-4.9); Mean Corpuscular HGB Conc 31.0 g/dl (31.0-35.0); Mean Corpuscular Hemoglobin 24.2 pg (27.0-33.0); Mean Corpuscular Volume 78.1 fL (80.0-98.0); NRBC Abs Auto 0.000 X10*3/uL (0.0-0.012); NRBC Pct Auto 0.0 /100WBC (0.0-0.2); Platelet Count 270 X10*3/uL (160-400); Red Blood Count 5.08 X10*6/uL (4.20-5.50); White Blood Count 8.1 X10*3/uL (4.8-10.8)
[2024-11-25 09:32] LABS: Alanine Aminotransferase 16 U/L (0-31); Albumin Level 3.9 g/dL (3.5-5.0); Alkaline Phosphatase 101 U/L (39-117); Anion Gap 13 (12-20); Aspartate Amino Transferase 22 U/L (5-31); Blood Urea Nitrogen 22 mg/dL (9-16); Calcium 9.2 mg/dL (8.4-10.2); Carbon Dioxide 32 mmol/L (22-29); Chloride 101 mmol/L (96-108); Cholesterol 116 mg/dL (<200); Estimated Glomerular Filt Rate 48; Folate 13.1 ng/mL (> or = 4.0); HDL Cholesterol 34 mg/dL (>40); Iron 41 mcg/dL (30-160); Magnesium 1.4 mg/dL (1.6-2.6); Percent Iron Saturation 20 % (15-50); Potassium 3.3 mmol/L (3.3-5.1); Sodium 143 mmol/L (135-145); Total Iron Binding Capacity 203 mcg/dL (228-428); Total Protein 7.0 g/dL (6.5-8.0); Triglycerides 70 mg/dL (<150); Unsaturated Iron Binding 162 ug/dL; Vitamin B12 1147 pg/mL (200-900)
== END 2024-11-25 07:05 | disposition home or self-care (01) ==
LOC: HO.LAB 07:04
PROVIDERS: Internal Medicine Endocrinology, Diabetes & Metabolism; PCP Internal Medicine; Visit Provider Internal Medicine
DX: M81.0 Age-related osteoporosis without current pathological fracture (principal); J44.9 Chronic obstructive pulmonary disease, unspecified; E53.8 Deficiency of other specified B group vitamins; D64.9 Anemia, unspecified; E78.5 Hyperlipidemia, unspecified; E83.42 Hypomagnesemia
CPT/HCPCS: 36415; 80053; 80061; 82306; 82607; 82746; 83540; 83735; 84100; 85025

== ENCOUNTER 2024-11-29 08:15 | Outpatient (AMB) | payer OTHER, SELFPAY ==
--- NOTE | 2024-11-29 08:21 | A.OFFVIS_ITS ---
Vital Signs 11/29/24 08:22 Height 4 ft 11 in Weight 140 lb BMI 28.3 BP 122/62 Blood Pressure Location Rt brachial Position Sitting Pulse 68 Pulse Source Pulse Oximeter Pulse Oximetry (%) 97 Oxygen Delivery Method Room Air Intake Visit Reasons: INP-Other amnesia Intake Note: Amnesia Atomic Process Engineer Required: Yes Atomic Process Engineer Name: Loretta cabezas to interpret Accompanied by: Grand Child Allergies egg (EGG) Adverse Reaction (Intermediate, Verified 11/29/24 08:22) DIARRHEA oats (OATS) Adverse Reaction (Intermediate, Verified 11/29/24 08:22) DIARRHEA FROM OATMEAL Pioglitazone HCl Adverse Reaction (Intermediate, Uncoded 10/24/24 10:16) edema HPI Comments Details: 79y/o female comes for evaluation of possible dementia. she is accompanied by her granddaughter who helps with history. she has a remote h/o CVA with residual left hemiparesis. The patient lives with her daughter who noticed that patient has trouble with immediate recall, difficulty retaining information.she is confused with place , dates, forgets to take medications . she can dress herself . she does not cook anymore.she needs help with showers- opens the shower and confused what to do.No h/o head injury No fh/o dementia. She did not learn how to read or write. she gets very confused. she sleeps OK - wakes up at 4am and is very confused .No known hallucinations. she gets anxious and sad intermittently. [facility] Medical History (Updated 11/29/24 @ 08:53 by Alysha Pickard MD) Dementia Acute and chronic respiratory failure CHF exacerbation COPD exacerbation Acute kidney failure Acute on chronic heart failure with preserved ejection fraction (HFpEF) Acute on chronic combined systolic (congestive) and diastolic (congestive) heart failure Acute hypoxemic respiratory failure Acute on chronic diastolic (congestive) heart failure Hearing loss CHF (congestive heart failure) Iron deficiency anemia Left hemiparesis Cardiac pacemaker in situ Diastolic dysfunction Ear discomfort Otitis media Moderate asthma Pure hypercholesterolemia Osteoporosis B12 deficiency Gallstones GERD (gastroesophageal reflux disease) Hypovitaminosis D History of stroke Diabetes mellitus Essential hypertension Surgical History History of pacemaker Family History Father No problems noted. Mother No problems noted. Social History Household Members: Family Housing: House Housing Other:: lives with daughter Are you a primary anesthesiologist and critical care to a significant other at home: No Do you presently have visiting nurse or other home services: Yes (PT and Nursing) Alcohol intake: never Patient Tobacco Use Status: Former Tobacco user Tobacco use type: Cigarette e-Cigarette/Vaping Use: Never Used Second Hand Smoke Exposure: No Advance Directives Date on File: 07/02/21 service: No Current occupational status: disabled Cognitive needs: Yes (walker) Hearing needs: No Vision needs: Yes (glasses) Review of Systems Neuro Reports confusion Psych Reports confusion Physical Exam Vital Signs: Last Vital Signs Pulse 68 11/29/24 08:22 BP 122/62 11/29/24 08:22 Pulse Ox 97 11/29/24 08:22 Oxygen Delivery Method Room Air 11/29/24 08:22 BMI result Body Mass Index 28.3 Const General: cooperative, comfortable and confusion Nutritional Appearance: average body habitus Orientation/consciousness: confusion Eyes Pupils: Equal, round and reactive pupils present Neuro Other: off balance with cane slow Mild left facial weakness \Mildleft sided weakness General: moves all extremities and confusion Cranial nerves: Yes Facial sensation intact/muscles of mastication intact, Yes Equal, round and reactive pupils present, Yes Bilaterally intact EOM present, Yes Nystagmus not present, Yes Midline tongue present and Yes Ability to bilaterally elevate shoulders present Cognition (Neuro): abnormal cognition Gait exam (Neuro): Antalgic gait present Motor exam (neuro): 5/5 motor strength present throughout and Normal motor muscle tone present throughout Deep tendon reflexes (DTR's): Right triceps reflex intensity grade: 1+, Left triceps reflex intensity grade: 1+, Rt Biceps (C5, C6): 1+, Left biceps reflex intensity grade: 1+, Right brachioradialis reflex intensity grade: 1+, Left brachioradialis reflex intensity grade: 1+, Right patellar reflex intensity grade: 1+ and Left patellar reflex intensity grade: 1+ Coordination: [id number] test normal Orientation Where are we (state) (county) (town or city) (hospital) (floor)?: town or city Registration Name of 3 unrelated objects clearly and slowly, then ask patient to repeat all 3 of them. (1st repeat determines score. Make sure they can repeat all three): object 1 and object 3 Language Show patient a wristwatch & ask what it is. Repeat for pencil.: watch and pencil Ask the patient to repeat the phrase 'No ifs, ands, or buts' after you.: correct Ask the patient to 'take a piece of paper with their right hand' 'fold paper in half' 'place paper on floor': take paper in right hand Score Score: 7 Results Reviewed Results Reviewed: CT Brain 04/2024 The bony calvarium is intact. The skull base is intact. There is small exostosis at the frontal bone. No acute intracranial hemorrhage, mass effect, midline shift, hydrocephalus or herniation. Herbert-white matter differentiation is normal. There is right occipital encephalomalacia with ex vacuo dilatation of the occipital horn. There is a focal encephalomalacia, right temporoparietal. Bilateral multifocal patchy deep periventricular white matter hypodensity. Sellar/suprasellar region demonstrated no gross masses. Craniocervical junction is intact. Tympanic cavities and mastoid air cells are aerated. No air-fluid levels in the included paranasal sinuses. CT/CT head/brain wo IV con IMPRESSION: No acute fracture, bony calvarium. No acute intracranial hemorrhage. Small vessel occlusive disease and prior vascular insults involving the right SHUTTLE DRIVER and likely posterior branches right MCA territory. Electronically signed by: Damian Calles MD 05/01/2024 01:21 PM [facility] Assessment & Plan Assessment & Plan (1) Dementia: Comment: modertae to severe dementia likely mixed Code(s): F03.90 - Unspecified dementia, unspecified severity, without behavioral disturbance, psychotic disturbance, mood disturbance, and anxiety Category: Medical Qualifiers: Dementia type: unspecified type Dementia severity: severe Dementia behavioral or psychological symptom: without behavioral, psychotic, or mood disturbance or anxiety Qualified Code(s): F03.C0 - Unspecified dementia, severe, without behavioral disturbance, psychotic disturbance, mood disturbance, and anxiety Plan Reviewed her CT results and labs - normal Vit B 12 and TSH Suggested supportive care Risk factor management Increase cognitive stimulation at home she is nota candidiate for antiamyloid therapy she is not a candidate for memantine or ACHr inhibitors due to the advanced stage of her disease. These medications usually is beneficial during the early stages of the disease. Coding Level of Care Code New Pt Level 4 (71712) Complex EM visit Add On G2211 Diagnoses Severe dementia without behavioral disturbance, psychotic disturbance, mood disturbance, or anxiety, unspecified dementia type F03.C0 Dementia type: unspecified type Dementia severity: severe Dementia behavioral or psychological symptom: without behavioral, psychotic, or mood disturbance or anxiety
[2024-11-29 08:22] VITALS: BP 122/62; PULSE 68; O2SAT 97; BMI 28.3
== END 2024-11-29 08:59 | disposition home or self-care (01) ==
LOC: HO.HSMS 08:16
PROVIDERS: PCP Internal Medicine; Visit Provider Psychiatry & Neurology Neurology
DX: F03.C0 Unspecified dementia, severe, without behavioral disturbance, psychotic disturbance, mood disturbance, and anxiety (principal)
CPT/HCPCS: 99204; G2211

== ENCOUNTER → 2024-11-29 08:15 | Outpatient (BNVA) | payer OTHER, SELFPAY | PROVIDERS: PCP Internal Medicine; Visit Provider Psychiatry & Neurology Neurology | DX: F03.C0 Unspecified dementia, severe, without behavioral disturbance, psychotic disturbance, mood disturbance, and anxiety (principal) | CPT/HCPCS: 99202 ==

== ENCOUNTER 2024-11-30 09:20 | Outpatient (AMB) | payer OTHER, SELFPAY ==
--- NOTE | 2024-11-30 09:26 | A.OFFPC_ITS ---
Vital Signs 11/30/24 09:27 Height 4 ft 11 in Weight 139 lb 12.369 oz BMI 28.2 BP 122/78 Blood Pressure Location Lt brachial Position Sitting Pulse 72 Pulse Source Pulse Oximeter Pulse Oximetry (%) 96 Oxygen Delivery Method Room Air Intake Visit Reasons: dm Script Coordinator Required: No Accompanied by: Self / Same As Patient Allergies egg (EGG) Adverse Reaction (Intermediate, Verified 11/30/24 09:28) DIARRHEA oats (OATS) Adverse Reaction (Intermediate, Verified 11/30/24 09:28) DIARRHEA FROM OATMEAL Pioglitazone HCl Adverse Reaction (Intermediate, Uncoded 11/30/24 09:28) edema Medication List - Last Reconciled 11/30/24 by Yoselyn Millan MD [Adult pull ups As directed] albuterol sulfate 90 mcg/actuation (Ventolin HFA) 2 puffs inhalation Q6H PRN 30 days amlodipine 10 mg PO DAILY aspirin 81 mg PO DAILY 90 days atorvastatin 80 mg PO DAILY benzonatate 100 mg PO BID PRN 5 days blood sugar diagnostic (FreeStyle Lite Strips) Use 1 test strip once a day blood sugar diagnostic (FreeStyle Lite Strips) Use 1 test strip once a day blood-glucose meter (FreeStyle [place] Lite kit) As directed calcium acetate 667 mg PO BID 90 days cetirizine (All Day Allergy (cetirizine)) 10 mg PO DAILY PRN 90 days cholecalciferol (vitamin D3) 50 mcg PO DAILY citalopram 20 mg PO DAILY 90 days compr.stocking,knee,long,large As directed cyanocobalamin (vitamin B-12) (Vitamin B-12) 1,000 mcg PO .once a week 30 days doxazosin (Cardura) 2 mg PO DAILY empagliflozin (Jardiance) 10 mg PO DAILY ferrous sulfate (iron) 325 mg PO Q OTHER DAY 90 days fluticasone propion-salmeterol 230-21 mcg/actuation (Advair HFA) 2 puffs inhalation Q12H pucacvyojpt-yhafigufi-fvwcafik 200-62.5-25 mcg (Trelegy Ellipta) 1 inh inhalation DAILY furosemide 80 mg PO DAILY 30 days [gloves As directed] hospital bed As directed hydralazine 100 mg PO BID hydrocortisone 1% (Anti-Itch (hydrocortisone)) 1 appl topical BID PRN 2 weeks levalbuterol HCl 1.25 mg (3 mL) inhalation Q4-6H PRN losartan 25 mg PO DAILY magnesium oxide 500 mg PO DAILY 30 days metformin ER 1,500 mg (3 x 500 mg) PO DAILY 90 days metoprolol succinate ER 100 mg PO DAILY 90 days niacin ER 500 mg PO BEDTIME 90 days nystatin 1 mL buccal BID PRN 30 days omeprazole 20 mg PO DAILY@0630 oxybutynin chloride ER 10 mg PO DAILY [Power lift chair As directed] sennosides (senna) 8.6 mg PO BEDTIME PRN 30 days simethicone (Gas Relief (simethicone)) 125 mg PO TID PRN 30 days [Wipes As directed] Tobacco use date assessed: 11/30/24 Fall risk assessment: No Falls in past year Last assessed Fall Risk: 11/30/24 Dental Screening Dental Screen Date: 11/30/24 Did you have a dental visit in the last 12 months?: No Did you have a dental problem in the last 6 months where you did not have access to dental care?: No Was dental information given to patient?: No HPI HPI Comments History of Present Illness Details The patient is an 79-year-old female presenting with the management of multiple chronic conditions and preventative care. Hypertension is well-controlled with a blood pressure of 122/78 mmHg, managed with amlodipine and losartan. The patient is allergic to eggs, oats, and pioglitazone, which previously caused swelling. The patient has a history of depression and anxiety, managed with citalopram. She also has osteoporosis, previously treated with Fosamax for over five years, with a follow-up appointment scheduled for February. Diabetes Mellitus is managed with metformin 1500 mg daily, and the patient's A1c is 7.1%. The patient experienced a stroke in 2012, resulting in right-sided weakness. The patient reports constipation, for which she uses catalina and oxybutynin. She has a deficiency in vitamin D and magnesium, with magnesium levels at 1.4 mg/dL, below the normal range of 1.6 mg/dL. The patient has a history of histoplasmosis, noted on a CT scan with ground- glass changes. Preventative care includes the administration of the PCV-20 vaccine. [facility] Medical History Dementia Acute and chronic respiratory failure CHF exacerbation COPD exacerbation Acute kidney failure Acute on chronic heart failure with preserved ejection fraction (HFpEF) Acute on chronic combined systolic (congestive) and diastolic (congestive) heart failure Acute hypoxemic respiratory failure Acute on chronic diastolic (congestive) heart failure Hearing loss CHF (congestive heart failure) Iron deficiency anemia Left hemiparesis Cardiac pacemaker in situ Diastolic dysfunction Ear discomfort Otitis media Moderate asthma Pure hypercholesterolemia Osteoporosis B12 deficiency Gallstones GERD (gastroesophageal reflux disease) Hypovitaminosis D History of stroke Diabetes mellitus Essential hypertension Surgical History History of pacemaker Family History Father No problems noted. Mother No problems noted. Social History Household Members: Family Housing: House Housing Other:: lives with daughter Are you a primary director of managed care to a significant other at home: No Do you presently have visiting nurse or other home services: Yes (PT and Nursing) Alcohol intake: never Patient Tobacco Use Status: Former Tobacco user Tobacco use type: Cigarette e-Cigarette/Vaping Use: Never Used Second Hand Smoke Exposure: No Advance Directives Date on File: 07/02/21 service: No Current occupational status: disabled Cognitive needs: Yes (walker) Hearing needs: No Vision needs: Yes (glasses) Questionnaire Thrive Questionnaire Date Thrive assessed: 07/11/24 I am a: Patient What is your living situation today?: I have a steady place to live Within the past 12 months, did the food you bought not last and you didn't have the money to get more?: Never true Within the past 12 months, did you worry whether your food would run out before you got money to buy more?: Never true Do you have trouble paying for medicines?: No Do you have trouble getting transportation to medical appointments?: No Do you have trouble paying your heating and electricity bill?: No Do you have trouble taking care of your child, family member or friend?: No Do you have trouble with day-to-day activities such as bathing, preparing meals, shopping, managing finances, etc.?: No Are you currently unemployed and looking for a job?: No Are you interested in more education?: No Please select the resources that you would like help with: None Currently or been in a relationship where the following occur: No concerns reported THRIVE Score: 0 AUDIT C Alcohol Use Questionnaire (AUDIT-C) 1. How often do you have a drink containing alcohol?: Never 3. How often do you have six or more drinks on one occasion?: Never Total Score: 0 Score Reviewed/Action Taken: No ELBA-7 AMB Questionnaire ELBA-7 Date ELBA - 7 assessed: 07/12/24 Source: Developed by Drs. Prashanth Cuevas, Avelina Mariano, Elia Carney and colleagues, with an educational jayy from [employer]. Review of Systems Const All systems reviewed & are unremarkable except as noted in HPI and below Card Denies chest pain at rest, Denies chest pain with activity, Denies edema, Denies irregular heart rhythm, Denies claudication, Denies dyspnea, Denies dyspnea on exertion, Denies orthopnea, Denies paroxysmal nocturnal dyspnea and Denies slow heart rate Resp Denies cough, Denies dyspnea and Denies dyspnea on exertion Physical exam (Primary Care) Vital Signs: Last Vital Signs Pulse 72 11/30/24 09:27 BP 122/78 11/30/24 09:27 Pulse Ox 96 11/30/24 09:27 Oxygen Delivery Method Room Air 11/30/24 09:27 BMI result Body Mass Index 28.2 Tobacco/Smoking Status: Tobacco use Status Tobacco use date assessed 11/30/24 11/30/24 09:31 Patient Tobacco Use Status Former Tobacco user 11/30/24 09:31 Tobacco use type Cigarette 11/30/24 09:31 e-Cigarette/Vaping Use Never Used 11/30/24 09:31 Thrive Assessment: Date of Thrive Assessment Date Thrive assessed 07/11/24 11/30/24 09:31 Currently or been in a relationship where the following occur: No concerns reported Const Limitations: ambulation with cane Resp Effort & Inspection: normal respiratory effort Auscultation: clear to auscultation bilaterally Cardio Jugular venous distension: no JVD Rate: regular rate Rhythm: regular rhythm Heart sounds: S1 normal heart sound present and S2 normal heart sound present Neuro Motor exam (neuro): Abnormal motor strength present (5/5 right side, 3/5 left upper, 4/5 left lower) Extrem General: Yes full ROM Results AMB Hemoglobin A1c AMB Hemoglobin A1c 7.1 % Last Edit by TREVA Bhat on 11/30/24 09:46 Immunizations pneumoc 20-ale conj-dip cr(PF) 0.5 mL IM syringe Performing Provider: Yoselyn Millan MD [facility] Administered by: TREVA Landis on 11/30/24 10:17 Dose Route Admin Location Dispensed Lot Number Expiration Date [employer] 0.5 mL IM Left Deltoid 0.5 mL [id number] 11/06/25 4976-2328-04 [facility] Total Dispensed Waste 0.5 mL 0 % VIS Given Date VIS Provided VIS Publication Date 11/30/24 Single Vaccine 24 Eligibility Eligibility Date Funding Source Not [facility] Eligible 11/30/24 Private Results Reviewed Results Reviewed: Laboratory Last Values Hgb A1c (Clinic) 7.1 % (4.0-6.0) H 11/30/24 09:31 Coding Level of Care Code Est Pt Level 4 (35277) Complex EM visit Add On G2211 Diagnoses Mild recurrent major depression F33.0 Essential hypertension I10 Chronic diastolic congestive heart failure I50.32 Heart failure chronicity: chronic Heart failure type: diastolic Type 2 diabetes mellitus without complication, without long-term current use of insulin E11.9 Diabetes mellitus type: type 2 Diabetes mellitus snf insulin use: without intermediate frame tender use Diabetes mellitus complication status: without complication Osteoporosis M81.0 Gastroesophageal reflux disease, unspecified whether esophagitis present K21.9 Esophagitis presence: esophagitis presence not specified Left hemiparesis G81.94 Chronic obstructive pulmonary disease, unspecified COPD type J44.9 COPD type: unspecified COPD Time Spent (min) 23 Assessment & Plan Assessment & Plan (1) Mild recurrent major depression: Code(s): F33.0 - Major depressive disorder, recurrent, mild Category: Medical (2) Essential hypertension: Code(s): I10 - Essential (primary) hypertension Category: Medical (3) CHF (congestive heart failure): Code(s): I50.9 - Heart failure, unspecified Category: Medical Qualifiers: Heart failure chronicity: chronic Heart failure type: diastolic Qualified Code(s): I50.32 - Chronic diastolic (congestive) heart failure (4) Diabetes mellitus: Code(s): E11.9 - Type 2 diabetes mellitus without complications Category: Medical Qualifiers: Diabetes mellitus type: type 2 Diabetes mellitus intermediate frame tender insulin use: without intermediate frame tender use Diabetes mellitus complication status: without complication Qualified Code(s): E11.9 - Type 2 diabetes mellitus without complications (5) Osteoporosis: Code(s): M81.0 - Age-related osteoporosis without current pathological fracture Category: Medical (6) GERD (gastroesophageal reflux disease): Code(s): K21.9 - Gastro-esophageal reflux disease without esophagitis Category: Medical Qualifiers: Esophagitis presence: esophagitis presence not specified Qualified Code(s): K21.9 - Gastro-esophageal reflux disease without esophagitis (7) Left hemiparesis: Code(s): G81.94 - Hemiplegia, unspecified affecting left nondominant side Category: Medical (8) COPD (chronic obstructive pulmonary disease): Code(s): J44.9 - Chronic obstructive pulmonary disease, unspecified Category: Medical Qualifiers: COPD type: unspecified COPD Qualified Code(s): J44.9 - Chronic obstructive pulmonary disease, unspecified Plan Plan Patient was informed and verbally consented to the use of an ambient scribe for clinic note documentation during this visit. 1. Hypertension The patient's hypertension is well-controlled with a blood pressure of 122/78 mmHg, managed with amlodipine and losartan. No changes in medication are necessary at this time. 2. Diabetes Mellitus Diabetes Mellitus is managed with metformin 1500 mg daily, with an A1c of 7.1%. Continue current management and monitor A1c levels regularly. 3. Osteoporosis The patient has osteoporosis, previously treated with Fosamax for over five years. A follow-up appointment is scheduled for February to reassess treatment needs. 4. History Of Stroke With Right-Sided Weakness The patient experienced a stroke in 2012, resulting in right-sided weakness. Continue monitoring neurological status and manage any complications as they arise. 5. Constipation The patient reports constipation, managed with catalina and oxybutynin. Continue current management and reassess if symptoms persist. 6. Vitamin D Deficiency The patient has a deficiency in vitamin D, with supplementation as needed. 7. Magnesium Deficiency The patient has a magnesium deficiency, with levels at 1.4 mg/dL, below the normal range. Supplementation is recommended to correct the deficiency. 8. Histoplasmosis The patient has a history of histoplasmosis, noted on a CT scan with ground- glass changes. Monitor for any respiratory symptoms and manage accordingly. 9. Preventative Care: Pcv-20 Vaccination The patient received the PCV-20 vaccination as part of preventative care measures. Orders: Orders Lipid Panel 4 Months E78.5 - Hyperlipidemia, unspecified Microalbumin, Random (w Creat) 4 Months R80.9 - Proteinuria, unspecified Vitamin B12 and Folate 4 Months E53.8 - Deficiency of other specified B group vitamins Vitamin D 25-OH Total 4 Months E55.9 - Vitamin D deficiency, unspecified Comprehensive [place]. Panel Fast 4 Months I50.32 - Chronic diastolic (congestive) heart failure NT Pro B Type Natriuretic Pept 4 Months I50.32 - Chronic diastolic (congestive) heart failure AMB Hemoglobin A1c Today Z13.9 - Encounter for screening, unspecified Pneumococcal 20 Immunization Today Z23 - Encounter for immunization Complete Blood Count Auto Diff 4 Months D64.9 - Anemia, unspecified IRON PROFILE 4 Months D64.9 - Anemia, unspecified Medications: New ondansetron 8 mg PO Q12H PRN 60 tabs 3RF nausea and vomiting 30 days Changed From ferrous sulfate (iron) 325 mg PO Q OTHER DAY 90 days 45 tabs 0RF To ferrous sulfate (iron) 325 mg PO .once a week 12 tabs 11RF 90 days Refilled simethicone (Gas Relief (simethicone)) 125 mg PO TID PRN 90 tabs 0RF abdominal distention 30 days
[2024-11-30 09:27] VITALS: BP 122/78; PULSE 72; O2SAT 96; BMI 28.2
== END 2024-11-30 10:20 | disposition home or self-care (01) ==
LOC: HO.HMCH 09:20
PROVIDERS: PCP Internal Medicine; Visit Provider Internal Medicine
DX: E11.9 Type 2 diabetes mellitus without complications (principal); I11.0 Hypertensive heart disease with heart failure; I50.32 Chronic diastolic (congestive) heart failure; G81.94 Hemiplegia, unspecified affecting left nondominant side; J44.9 Chronic obstructive pulmonary disease, unspecified; F33.0 Major depressive disorder, recurrent, mild; M81.0 Age-related osteoporosis without current pathological fracture; K21.9 Gastro-esophageal reflux disease without esophagitis; Z23 Encounter for immunization

== ENCOUNTER → 2024-11-30 09:20 | Outpatient (BNVA) | payer OTHER, SELFPAY | PROVIDERS: PCP Internal Medicine; Visit Provider Internal Medicine | DX: F33.0 Major depressive disorder, recurrent, mild (principal); Z23 Encounter for immunization; I11.0 Hypertensive heart disease with heart failure; I50.32 Chronic diastolic (congestive) heart failure; E11.9 Type 2 diabetes mellitus without complications; M81.0 Age-related osteoporosis without current pathological fracture; K21.9 Gastro-esophageal reflux disease without esophagitis; J44.9 Chronic obstructive pulmonary disease, unspecified; I69.354 Hemiplegia and hemiparesis following cerebral infarction affecting left non-dominant side; K59.00 Constipation, unspecified; E55.9 Vitamin D deficiency, unspecified; E83.42 Hypomagnesemia; B39.9 Histoplasmosis, unspecified; Z79.84 Long term (current) use of oral hypoglycemic drugs | CPT/HCPCS: 83036; 90471; 90677; 99212 ==

== ENCOUNTER 2024-12-22 11:04 | Outpatient (REF) | payer OTHER, SELFPAY ==
--- NOTE | ~2024-12-22 | XR_ITS ---
EXAMINATION: XR CHEST 2 VIEWS HISTORY: R05.9 - Cough, unspecified COMPARISON: Comparison is made with the prior examination dated 05/09/2024. FINDINGS: PA and lateral views of the chest are submitted. A left subclavian dual-chamber pacemaker in position. There is linear scarring in the right lower lobe. The lungs are otherwise clear. There is no pleural effusion, pneumothorax, or pulmonary vascular congestion. The heart is normal in size. There is degenerative disc disease of the spine. XR/XR chest 2V IMPRESSION: No acute cardiopulmonary abnormality. Electronically signed by: Prashanth Potter MD 12/22/2024 01:34 PM EDT
== END 2024-12-22 11:05 | disposition home or self-care (01) ==
LOC: HO.HMGCX 11:04
PROVIDERS: PCP Internal Medicine; Visit Provider Nurse Practitioner Family
DX: J44.9 Chronic obstructive pulmonary disease, unspecified (principal); I11.0 Hypertensive heart disease with heart failure; I50.32 Chronic diastolic (congestive) heart failure; G47.34 Idiopathic sleep related nonobstructive alveolar hypoventilation; R91.8 Other nonspecific abnormal finding of lung field; Z79.899 Other long term (current) drug therapy; Z87.891 Personal history of nicotine dependence
CPT/HCPCS: 71046; 99212

== ENCOUNTER 2024-12-22 11:04 | Outpatient (AMB) | payer OTHER, SELFPAY ==
[2024-12-22 11:14] VITALS: BP 138/62; PULSE 91; O2SAT 98; BMI 28.1
--- NOTE | 2024-12-22 11:14 | MHC.OFFVIS ---
Vital Signs 12/22/24 11:14 Height 4 ft 11 in Weight 139 lb BMI 28.1 BP 138/62 Blood Pressure Location Rt brachial Position Sitting Pulse 91 Pulse Source Pulse Oximeter Pulse Oximetry (%) 98 Oxygen Delivery Method Room Air Intake Visit Reasons: COPD Allergies egg (EGG) Adverse Reaction (Intermediate, Verified 12/22/24 11:19) DIARRHEA oats (OATS) Adverse Reaction (Intermediate, Verified 12/22/24 11:19) DIARRHEA FROM OATMEAL Pioglitazone HCl Adverse Reaction (Intermediate, Uncoded 12/22/24 11:19) edema HPI HPI COPD: Details: Nedra is a pleasant 79 year old female, former 60+ pack year smoker, quit 5 years ago with underlying asthma/COPD on 2L supplemental oxygen NOC, HTN, DMII, diastolic dysfunction s/p pacer and CVA with left-sided residual hemiparesis. She is accompanied by her granddaughter today. At the last visit, she was switched to Trelegy with overall improvement however over the last week has developed increased chest congestion with difficulty expectorating as well as increased dyspnea. Denies fevers or chills. Denies orthopnea or BLE edema. She continues with use 2L NOC. [facility] Medical History Dementia Acute and chronic respiratory failure CHF exacerbation COPD exacerbation Acute kidney failure Acute on chronic heart failure with preserved ejection fraction (HFpEF) Acute on chronic combined systolic (congestive) and diastolic (congestive) heart failure Acute hypoxemic respiratory failure Acute on chronic diastolic (congestive) heart failure Hearing loss CHF (congestive heart failure) Iron deficiency anemia Left hemiparesis Cardiac pacemaker in situ Diastolic dysfunction Ear discomfort Otitis media Moderate asthma Pure hypercholesterolemia Osteoporosis B12 deficiency Gallstones GERD (gastroesophageal reflux disease) Hypovitaminosis D History of stroke Diabetes mellitus Essential hypertension Surgical History History of pacemaker Family History Father No problems noted. Mother No problems noted. Social History Household Members: Family Housing: House Housing Other:: lives with daughter Are you a primary veterinarian laboratory animal care to a significant other at home: No Do you presently have visiting nurse or other home services: Yes (PT and Nursing) Alcohol intake: never Patient Tobacco Use Status: Former Tobacco user Tobacco use type: Cigarette e-Cigarette/Vaping Use: Never Used Second Hand Smoke Exposure: No Advance Directives Date on File: 07/02/21 service: No Current occupational status: disabled Cognitive needs: Yes (walker) Hearing needs: No Vision needs: Yes (glasses) Review of Systems Const Denies chills, Denies excessive sweating, Denies fever(s), Denies headache(s) and Denies night sweats Eyes Denies dry eyes, Denies irritation and Denies itchy eyes ENT Reports Normal hearing present, Denies headache(s), Denies nasal congestion, Denies nasal discharge, Denies post nasal drip and Denies sore throat Card Denies chest pain, Denies chest pain at rest, Denies chest pain with activity, Denies claudication, Denies leg edema, Denies orthopnea and Denies paroxysmal nocturnal dyspnea Resp Denies excessive phlegm production, Denies pain on inspiration, Denies pain with cough, Denies stridor and Denies wheezing Musc Denies myalgias Neuro Reports Normal hearing present and Denies headache(s) Endo Denies excessive sweating Eric/Lymph Denies lymphadenopathy Aller/Immun Denies itchy eyes, Denies seasonal rhinorrhea and Denies wheezing Physical Exam Vital Signs: Last Vital Signs Pulse 91 12/22/24 11:14 BP 138/62 12/22/24 11:14 Pulse Ox 98 12/22/24 11:14 Oxygen Delivery Method Room Air 12/22/24 11:14 BMI result Body Mass Index 28.1 Const General: cooperative, healthy appearing, comfortable, no acute distress, well developed and alert Nutritional Appearance: obese Orientation/consciousness: patient oriented x3 Limitations: no limitations HEENT Head: Yes normal to inspection, Yes normocephalic and Yes atraumatic Ears: hearing grossly normal bilaterally and external ears normal Eyes General: appearance normal, both eyes and all related structures Eyelids: Yes eyelids normal Sclerae: sclerae normal EOM: EOMs intact bilaterally Neck Neck: Yes normal visual inspection and Yes no lymphadenopathy Lymphatic: no lymphadenopathy noted Chest Chest palpation & inspection: normal inspection of the chest Resp Other: decreased aeration LLL Effort & Inspection: normal respiratory effort, able to speak in complete sentences, no audible wheezes, no cough, no stridor, not tachypneic, no tripod positioning and no use of accessory muscles Cardio Jugular venous distension: no JVD Rate: regular rate Rhythm: regular rhythm Skin Other: warm, dry General skin exam: no rashes or lesions noted Neuro General: patient oriented x3 Cranial nerves: Yes Normal hearing present Cognition (Neuro): normal cognition Gait exam (Neuro): Normal gait present Extrem Other: trace BLE edema Psych Appearance: grossly normal and well kempt Speech and movement: Normal speech and movement present and Clear speech present Affect: normal affect Attitude: cooperative Thought process: Normal thought process present Thought content: Normal thought content present Insight: Good insight present (Psych) Judgement: Good judgement present (Psych) Assessment & Plan Assessment & Plan (1) COPD (chronic obstructive pulmonary disease): Code(s): J44.9 - Chronic obstructive pulmonary disease, unspecified Category: Medical Qualifiers: COPD type: unspecified COPD Qualified Code(s): J44.9 - Chronic obstructive pulmonary disease, unspecified (2) CHF (congestive heart failure): Code(s): I50.9 - Heart failure, unspecified Category: Medical Qualifiers: Heart failure chronicity: chronic Heart failure type: diastolic Qualified Code(s): I50.32 - Chronic diastolic (congestive) heart failure (3) Ground glass opacity present on imaging of lung: Code(s): R91.8 - Other nonspecific abnormal finding of lung field Category: Medical (4) Cough: Code(s): R05.9 - Cough, unspecified Category: Medical (5) Nocturnal hypoxemia: Code(s): G47.34 - Idiopathic sleep related nonobstructive alveolar hypoventilation Category: Medical Plan Will treat bronchitic symptoms with doxycycline and send for CXR, she is aware to call if symptoms do not improve. Advised to continue Trelegy and albuterol MDI PRN. Repeat chest CT continues to reveal ggo, will repeat in 3 months to assess stability. Will also send for overnight oximetry to ensure resolution of hypoxia with 2L supplemental oxygen at [facility]. All questions were answered and patient is in agreement of plan. Will follow up in 6-8 weeks or sooner if needed. Orders: Orders Overnight Pulse Oximetry Today G47.34 - Idiopathic sleep related nonobstructive alveolar hypoventilation CT chest wo IV con Today R91.8 - Other nonspecific abnormal finding of lung field Medications: New doxycycline hyclate 100 mg PO BID 14 caps 0RF Discontinued fluticasone propion-salmeterol 230-21 mcg/actuation (Advair HFA) Discontinued Reason: No Longer Medically Relevant 2 puffs inhalation Q12H 12 grams 3RF Coding Level of Care Code Est Pt Level 4 (18130) Diagnoses Chronic obstructive pulmonary disease, unspecified COPD type J44.9 COPD type: unspecified COPD Chronic diastolic congestive heart failure I50.32 Heart failure chronicity: chronic Heart failure type: diastolic Ground glass opacity present on imaging of lung R91.8 Cough R05.9 Nocturnal hypoxemia G47.34
== END 2024-12-22 11:56 | disposition home or self-care (01) ==
LOC: HO.HPSW 11:05
PROVIDERS: PCP Internal Medicine; Visit Provider Nurse Practitioner Family
DX: J44.9 Chronic obstructive pulmonary disease, unspecified (principal); I50.32 Chronic diastolic (congestive) heart failure; R91.8 Other nonspecific abnormal finding of lung field; R05.9 Cough, unspecified; G47.34 Idiopathic sleep related nonobstructive alveolar hypoventilation
CPT/HCPCS: 99214

== ENCOUNTER → 2024-12-22 13:15 | Outpatient (BNV) | payer OTHER, SELFPAY | PROVIDERS: PCP Internal Medicine; Visit Provider Radiology Diagnostic Radiology | DX: R05.9 Cough, unspecified (principal) | CPT/HCPCS: 71046 ==

== ENCOUNTER 2024-12-29 09:24 | Outpatient (AMB) | payer OTHER, SELFPAY ==
--- NOTE | 2024-12-29 09:31 | HO.NEPHOV_ITS ---
Vital Signs 12/29/24 09:34 Height 4 ft 11 in Weight 138 lb 2 oz BMI 27.9 BP 110/50 L Blood Pressure Location Lt brachial Position Sitting Pulse 94 Pulse Source Pulse Oximeter Pulse Oximetry (%) 97 Oxygen Delivery Method Room Air Intake Visit Reasons: INP: Other disorders/phosphorus metabolism conf. [employer] Required: Yes [employer] Language: Supervisor Gluing Services: [employer] Offered & Declined ([facility] [place] [facility] [employer] services refused ) Accompanied by: Grand Child Allergies egg (EGG) Adverse Reaction (Intermediate, Verified 12/29/24 09:34) DIARRHEA oats (OATS) Adverse Reaction (Intermediate, Verified 12/29/24 09:34) DIARRHEA FROM OATMEAL Pioglitazone HCl Adverse Reaction (Intermediate, Uncoded 12/22/24 11:19) edema Medication List - Last Reconciled 12/29/24 by Eliu Pickard MD [Adult pull ups As directed] albuterol sulfate 90 mcg/actuation (Ventolin HFA) 2 puffs inhalation Q6H PRN 30 days amlodipine 10 mg PO DAILY aspirin 81 mg PO DAILY 90 days atorvastatin 80 mg PO DAILY benzonatate 100 mg PO BID PRN 5 days blood sugar diagnostic (FreeStyle Lite Strips) Use 1 test strip once a day blood sugar diagnostic (FreeStyle Lite Strips) Use 1 test strip once a day blood-glucose meter (FreeStyle [place] Lite kit) As directed calcium acetate 667 mg PO BID 90 days cetirizine (All Day Allergy (cetirizine)) 10 mg PO DAILY PRN 90 days cholecalciferol (vitamin D3) 50 mcg PO DAILY citalopram 20 mg PO DAILY 90 days compr.stocking,knee,long,large As directed cyanocobalamin (vitamin B-12) (Vitamin B-12) 1,000 mcg PO .once a week 30 days doxazosin (Cardura) 2 mg PO DAILY empagliflozin (Jardiance) 10 mg PO DAILY ferrous sulfate (iron) 325 mg PO .once a week 90 days zhpukeulrdg-cmctocfyx-mmhxgfvg 200-62.5-25 mcg (Trelegy Ellipta) 1 inh inhalation DAILY furosemide 80 mg PO DAILY 30 days [gloves As directed] hospital bed As directed hydralazine 100 mg PO BID hydrocortisone 1% (Anti-Itch (hydrocortisone)) 1 appl topical BID PRN 2 weeks levalbuterol HCl 1.25 mg (3 mL) inhalation Q4-6H PRN losartan 25 mg PO DAILY magnesium oxide 500 mg PO DAILY 30 days metformin ER 1,500 mg (3 x 500 mg) PO DAILY 90 days metoprolol succinate ER 100 mg PO DAILY 90 days niacin ER 500 mg PO BEDTIME 90 days nystatin 1 mL buccal BID PRN 30 days omeprazole 20 mg PO DAILY@0630 ondansetron 8 mg PO Q12H PRN 30 days oxybutynin chloride ER 10 mg PO DAILY [Power lift chair As directed] sennosides (senna) 8.6 mg PO BEDTIME PRN 30 days simethicone (Gas Relief (simethicone)) 125 mg PO TID PRN 30 days [Wipes As directed] HPI Comments Details: - The patient is an 79-year-old female referred for evaluation of CKD with low phosphorus and low MAgnesium - Chronic Kidney Disease: Kidney function at 48%, lower than expected for age. - Hypophosphatemia: no supplements taken. - Hypomagnesemia: On magnesium supplementation. She is on Lasix 80 mg. No diarrhea. No polyuria polydipsia. - Diabetes Mellitus: Over 10 years, managed with medication. - Hypertension: Managed history of high blood pressure. - Asthma: Well-controlled - History of Stroke: Past stroke, no recent issues. - Presence of Pacemaker: No reported issues. No history of any significant alcohol intake. She is also being evaluated by endocrinology for electrolyte imbalance. She has had metabolic alkalosis back in 2023. PH was 7.5 Accompanied by granddaughter [facility] Medical History Dementia Acute and chronic respiratory failure CHF exacerbation COPD exacerbation Acute kidney failure Acute on chronic heart failure with preserved ejection fraction (HFpEF) Acute on chronic combined systolic (congestive) and diastolic (congestive) heart failure Acute hypoxemic respiratory failure Acute on chronic diastolic (congestive) heart failure Hearing loss CHF (congestive heart failure) Iron deficiency anemia Left hemiparesis Cardiac pacemaker in situ Diastolic dysfunction Ear discomfort Otitis media Moderate asthma Pure hypercholesterolemia Osteoporosis B12 deficiency Gallstones GERD (gastroesophageal reflux disease) Hypovitaminosis D History of stroke Diabetes mellitus Essential hypertension Surgical History History of pacemaker Family History Father No problems noted. Mother No problems noted. Social History Household Members: Family Housing: House Housing Other:: lives with daughter Are you a primary urgent care technician to a significant other at home: No Do you presently have visiting nurse or other home services: Yes (PT and Nursing) Alcohol intake: never Patient Tobacco Use Status: Former Tobacco user Tobacco use type: Cigarette e-Cigarette/Vaping Use: Never Used Second Hand Smoke Exposure: No Advance Directives Date on File: 07/02/21 service: No Current occupational status: disabled Cognitive needs: Yes (walker) Hearing needs: No Vision needs: Yes (glasses) Review of Systems Const Denies fever(s) and Denies weight loss Card Denies chest pain Resp Denies cough and Denies hemoptysis GI Denies abdominal pain, Denies diarrhea and Denies nausea Musc Denies back pain Neuro Denies focal weakness Physical Exam Vital Signs: Last Vital Signs Pulse 94 12/29/24 09:34 BP 110/50 L 12/29/24 09:34 Pulse Ox 97 12/29/24 09:34 Oxygen Delivery Method Room Air 12/29/24 09:34 BMI result Body Mass Index 27.9 Comfortable Neck supple no JVD. Lungs entry equal no rales. Heart S1-S2 heard no gallop or rub. Abdomen soft nontender. Neuro alert awake oriented. No asterixis. Extremities no edema. Results Reviewed Nephrology Results: Hgb, (12.0-16.0) 12.3 g/dl 11/25/24 WBC, (4.8-10.8) 8.1 X10*3/uL 11/25/24 Plt Count, (160-400) 270 X10*3/uL 11/25/24 Sodium, (135-145) 143 mmol/L 11/25/24 Potassium, (3.3-5.1) 3.3 mmol/L 11/25/24 Chloride, (96-108) 101 mmol/L 11/25/24 Carbon Dioxide, (22-29) 32 mmol/L H 11/25/24 BUN, (9-16) 22 mg/dL H 11/25/24 Creatinine, (0.5-1.4) 1.10 mg/dL 11/25/24 Calcium, (8.4-10.2) 9.2 mg/dL 11/25/24 Phosphorus, (2.7-4.5) 3.1 mg/dL 11/25/24 Assessment & Plan Assessment & Plan (1) CKD (chronic kidney disease) stage 3, GFR 30-59 ml/min: Code(s): N18.30 - Chronic kidney disease, stage 3 unspecified Category: Medical Plan Elderly woman with CKD 3 in the setting of longstanding diabetes mellitus and hypertension. EGFR is about 48 mL/minute. Renal function has been relatively stable for the last few years. I do not believe she has any component of acute kidney injury at this time. Workup initiated for CKD including renal ultrasonogram and urine studies. Goal is to slow the progression of renal disease Maintain blood pressure less 130/80 Maintain A1c less than 7%. Continue to avoid NSAIDs. History of metabolic alkalosis in the past. Persistent hypo magnesemia and hypophosphatemia. Currently being evaluated by endocrinology. Twenty-four urine collection has been ordered. Ordered intact PTH vitamin-D levels as well. Agree with current supplementation. Further workup will be based on the outcome of the above investigations. Orders: Orders Magnesium, 24Hr Urine Today E83.42 - Hypomagnesemia, I10 - Essential (primary) hypertension Complete Blood Count Auto Diff Today E83.42 - Hypomagnesemia, I10 - Essential (primary) hypertension Parathyroid Hormone Intact Today E83.42 - Hypomagnesemia, I10 - Essential (primary) hypertension Total Protein Urine Random Today E83.42 - Hypomagnesemia, I10 - Essential (primary) hypertension Phosphorus Today E83.42 - Hypomagnesemia, I10 - Essential (primary) hypertension Sodium Urine Random 2 Weeks E83.42 - Hypomagnesemia, I10 - Essential (primary) hypertension Chloride Urine Random Today E83.42 - Hypomagnesemia, I10 - Essential (primary) hypertension US renal BI Today E83.42 - Hypomagnesemia, I10 - Essential (primary) hypertension Comprehensive Met. Panel Today E83.42 - Hypomagnesemia, I10 - Essential (primary) hypertension Magnesium Today E83.42 - Hypomagnesemia, I10 - Essential (primary) hypertension UA and rflx microscopic Today E83.42 - Hypomagnesemia, I10 - Essential (primary) hypertension Creatinine Urine Today E83.42 - Hypomagnesemia, I10 - Essential (primary) hypertension Potassium Urine Random Today E83.42 - Hypomagnesemia, I10 - Essential (primary) hypertension Coding Level of Care Code New Pt Level 4 (49723) Diagnoses CKD (chronic kidney disease) stage 3, GFR 30-59 ml/min N18.30
[2024-12-29 09:34] VITALS: BP 110/50; PULSE 94; O2SAT 97; BMI 27.9
== END 2024-12-29 10:20 | disposition home or self-care (01) ==
LOC: HO.HKA 09:24
PROVIDERS: PCP Internal Medicine; Referring Provider Internal Medicine; Visit Provider Internal Medicine Hypertension Specialist
DX: N18.30 Chronic kidney disease, stage 3 unspecified (principal)
CPT/HCPCS: 99204

== ENCOUNTER 2024-12-29 10:11 | Outpatient (REF) | payer OTHER, SELFPAY ==
[2024-12-29 11:40] LABS: MANUAL DIFF FLAG NO
[2024-12-29 11:58] LABS: Hematocrit 38.8 % (37.0-47.0); Hemoglobin 12.1 g/dl (12.0-16.0); Imm Gran Abs Auto 0.02 X10*3/uL (0.00-0.03); Imm Gran Pct Auto 0.3 % (0.0-0.4); Lymphocytes Absolute Auto 1.5 X10*3/uL (1.2-4.9); Mean Corpuscular HGB Conc 31.2 g/dl (31.0-35.0); Mean Corpuscular Hemoglobin 24.6 pg (27.0-33.0); Mean Corpuscular Volume 79.0 fL (80.0-98.0); NRBC Abs Auto 0.000 X10*3/uL (0.0-0.012); NRBC Pct Auto 0.0 /100WBC (0.0-0.2); Platelet Count 242 X10*3/uL (160-400); Red Blood Count 4.91 X10*6/uL (4.20-5.50); White Blood Count 7.9 X10*3/uL (4.8-10.8)
[2024-12-29 12:31] LABS: Parathyroid Hormone Intact 16.1 pg/mL (8.7-77.1)
[2024-12-29 12:32] LABS: Alanine Aminotransferase 16 U/L (0-31); Albumin Level 4.0 g/dL (3.5-5.0); Alkaline Phosphatase 101 U/L (39-117); Anion Gap 19 (12-20); Aspartate Amino Transferase 24 U/L (5-31); Blood Urea Nitrogen 24 mg/dL (9-16); Calcium 10.8 mg/dL (8.4-10.2); Carbon Dioxide 28 mmol/L (22-29); Chloride 96 mmol/L (96-108); Estimated Glomerular Filt Rate 48; Magnesium 1.1 mg/dL (1.6-2.6); Potassium 3.1 mmol/L (3.3-5.1); Sodium 140 mmol/L (135-145); Total Protein 7.1 g/dL (6.5-8.0)
== END 2024-12-29 10:12 | disposition home or self-care (01) ==
LOC: HO.10HDL 10:11
PROVIDERS: Visit Provider Internal Medicine Hypertension Specialist
DX: I12.9 Hypertensive chronic kidney disease with stage 1 through stage 4 chronic kidney disease, or unspecified chronic kidney disease (principal); N18.30 Chronic kidney disease, stage 3 unspecified; E83.42 Hypomagnesemia; Z87.891 Personal history of nicotine dependence
CPT/HCPCS: 36415; 80053; 83735; 83970; 84100; 85025; 99202

== ENCOUNTER 2025-01-03 08:59 | Outpatient (AMB) | payer OTHER, SELFPAY ==
--- NOTE | 2025-01-03 09:01 | MHC.OFFVIS ---
Vital Signs 01/03/25 09:03 Height 4 ft 11 in Weight 138 lb 7.205 oz BMI 28.0 BP 124/50 L Blood Pressure Location Lt brachial Pulse 100 Pulse Source Pulse Oximeter Intake Visit Reasons: 6 mth fu with [facility] cesar Shoeshiner Required: Yes Shoeshiner Services: Shoeshiner Offered & Declined Accompanied by: Grand Child Allergies egg (EGG) Adverse Reaction (Intermediate, Verified 01/03/25 09:07) DIARRHEA oats (OATS) Adverse Reaction (Intermediate, Verified 01/03/25 09:07) DIARRHEA FROM OATMEAL Pioglitazone HCl Adverse Reaction (Intermediate, Uncoded 12/22/24 11:19) edema Medication List - Last Reconciled 01/03/25 by Bryn Newell MD [Adult pull ups As directed] albuterol sulfate 90 mcg/actuation (Ventolin HFA) 2 puffs inhalation Q6H PRN 30 days amlodipine 10 mg PO DAILY aspirin 81 mg PO DAILY 90 days atorvastatin 80 mg PO DAILY benzonatate 100 mg PO BID PRN 5 days blood sugar diagnostic (FreeStyle Lite Strips) Use 1 test strip once a day blood sugar diagnostic (FreeStyle Lite Strips) Use 1 test strip once a day blood-glucose meter (FreeStyle [place] Lite kit) As directed calcium acetate 667 mg PO BID 90 days cetirizine (All Day Allergy (cetirizine)) 10 mg PO DAILY PRN 90 days cholecalciferol (vitamin D3) 50 mcg PO DAILY citalopram 20 mg PO DAILY 90 days compr.stocking,knee,long,large As directed cyanocobalamin (vitamin B-12) (Vitamin B-12) 1,000 mcg PO .once a week 30 days doxazosin (Cardura) 2 mg PO DAILY empagliflozin (Jardiance) 10 mg PO DAILY ferrous sulfate (iron) 325 mg PO .once a week 90 days nmndauriapu-byagdcwef-pggnxrtx 200-62.5-25 mcg (Trelegy Ellipta) 1 inh inhalation DAILY furosemide 80 mg PO DAILY 30 days [gloves As directed] hospital bed As directed hydralazine 100 mg PO BID hydrocortisone 1% (Anti-Itch (hydrocortisone)) 1 appl topical BID PRN 2 weeks levalbuterol HCl 1.25 mg (3 mL) inhalation Q4-6H PRN losartan 25 mg PO DAILY magnesium oxide 500 mg PO DAILY 30 [facility] PO DAILY PRN 30 days metformin ER 1,500 mg (3 x 500 mg) PO DAILY 90 days metoprolol succinate ER 100 mg PO DAILY 90 days niacin ER 500 mg PO BEDTIME 90 days nystatin 1 mL buccal BID PRN 30 days omeprazole 20 mg PO DAILY@0630 ondansetron 8 mg PO Q12H PRN 30 days oxybutynin chloride ER 10 mg PO DAILY [Power lift chair As directed] sennosides (senna) 8.6 mg PO BEDTIME PRN 30 days simethicone (Gas Relief (simethicone)) 125 mg PO TID PRN 30 days [Wipes As directed] HPI Comments Details: Nedra comes for follow-up, accompanied by her granddaughter who acts as petroleum engineer. Patient has had progressive cognitive decline. Patient comes here for pacemaker check. The no obvious cardiac symptoms. Patient denies any palpitations. There was no reported symptoms of chest pain or shortness of breath. No lightheadedness, syncope. FOR[facility]LY [facility], [facility] Medical History Dementia Acute and chronic respiratory failure CHF exacerbation COPD exacerbation Acute kidney failure Acute on chronic heart failure with preserved ejection fraction (HFpEF) Acute on chronic combined systolic (congestive) and diastolic (congestive) heart failure Acute hypoxemic respiratory failure Acute on chronic diastolic (congestive) heart failure Hearing loss CHF (congestive heart failure) Iron deficiency anemia Left hemiparesis Cardiac pacemaker in situ Diastolic dysfunction Ear discomfort Otitis media Moderate asthma Pure hypercholesterolemia Osteoporosis B12 deficiency Gallstones GERD (gastroesophageal reflux disease) Hypovitaminosis D History of stroke Diabetes mellitus Essential hypertension Surgical History History of pacemaker Family History Father No problems noted. Mother No problems noted. Social History Household Members: Family Housing: House Housing Other:: lives with daughter Are you a primary career counselor to a significant other at home: No Do you presently have visiting nurse or other home services: Yes (PT and Nursing) Alcohol intake: never Patient Tobacco Use Status: Former Tobacco user Tobacco use type: Cigarette e-Cigarette/Vaping Use: Never Used Second Hand Smoke Exposure: No Advance Directives Date on File: 07/02/21 service: No Current occupational status: disabled Cognitive needs: Yes (walker) Hearing needs: No Vision needs: Yes (glasses) Review of Systems Const Denies daytime sleepiness, Denies difficulty sleeping, Denies snoring, Denies stops breathing during sleep and Denies weakness Card Denies chest pain, Denies rapid heart rate, Denies irregular heart rhythm, Denies claudication, Denies leg edema, Denies lightheadedness, Denies palpitations, Reports dyspnea, Denies dyspnea on exertion, Denies orthopnea, Denies paroxysmal nocturnal dyspnea and Denies slow heart rate Resp Denies cough, Reports dyspnea, Denies dyspnea on exertion and Denies snoring GI Reports no additional complaints, Denies hematochezia, Denies change in stool character and Denies dyspepsia Musc Denies abnormal gait, Denies muscle weakness and Denies numbness Neuro Denies abnormal gait, Denies numbness and Denies weakness Endo Denies palpitations Physical Exam Vital Signs: Last Vital Signs Pulse 100 01/03/25 09:03 BP 124/50 L 01/03/25 09:03 BMI result Body Mass Index 28.0 Const General: cooperative, comfortable, no acute distress, alert and awake Nutritional Appearance: obese Orientation/consciousness: patient oriented x3 Limitations: ambulation with cane Neck Neck: Yes trachea midline, Yes supple and Yes JVD Resp Effort & Inspection: normal respiratory effort Auscultation: clear to auscultation bilaterally Cardio Jugular venous distension: JVD Palpation: normal PMI Rate: regular rate Rhythm: regular rhythm Heart sounds: S1 normal heart sound present, S2 normal heart sound present, no click, no gallops, no murmurs and Other heart sounds present (Soft S4 present) GI Auscultation: normal bowel sounds Skin General skin exam: no rashes or lesions noted Neuro General: patient oriented x3 and no focal motor deficits Extrem General: No clubbing, No cyanosis and Yes edema Psych Appearance: grossly normal Office Procedures Cardiac Device Check Cardiac Device Check Details: Dual-chamber [place] pacemaker in place programmed in DDDR at 60 beats per minute. Few episodes with few beats of atrial tachycardia noted. Atrial pacing about 30% time. Patient is not pacer dependent. Atrial ventricular pacing thresholds adequate and in auto capture mode. Atrial ventricular sensing is adequate. Pacing lead impedance is stable. Battery life is at 8.5 months [id number] Cardiac Device Check, pacemaker dual lead Procedure code (CPT) selection complete Assessment & Plan Assessment & Plan (1) Cardiac pacemaker in situ: Code(s): Z95.0 - Presence of cardiac pacemaker Category: Medical Plan: Cardiac pacemaker in-situ for sick sinus syndrome although patient is not pacer dependent. She is pacing in his atrium about 30% of the time. Unfortunately she has advancing cognitive dysfunction. Discussed with the granddaughter about short battery life on her pacer at about 8 and half months to discuss with healthcare proxy about future treatment plan including potentially not replacing her battery. This was discussed with her. She does use a pacemaker 30% of the time although this Mibi due to asymptomatic sinus bradycardia in the 50s. Have advised her son who is the healthcare proxy to call me and discuss this issue. (2) CHF (congestive heart failure): Code(s): I50.9 - Heart failure, unspecified Category: Medical Qualifiers: Heart failure chronicity: chronic Heart failure type: diastolic Qualified Code(s): I50.32 - Chronic diastolic (congestive) heart failure Plan: Heart failure related to hypertensive heart disease in the past. Clinically appears to be euvolemic and well compensated current Jardiance and Lasix dose. Blood pressure is well optimized. She has been given her medications regularly. Follows with Nephrology for chronic kidney disease. Overall management will be medical at this point time. Continue current therapy. Daily weight monitoring avoidance salt loading was discussed. Follow up in the clinic in 6 months time, sooner PRN. Thank you for allowing me to partake in her care Coding Level of Care Code Est Pt Level 4 (92710) Complex EM visit Add On G2211 Diagnoses Cardiac pacemaker in situ Z95.0 Chronic diastolic congestive heart failure I50.32 Heart failure chronicity: chronic Heart failure type: diastolic CPT Codes Cardiac Device Check - Cardiac Device 2: [id number] Cardiac Device Check, pacemaker dual lead ([id number])
[2025-01-03 09:03] VITALS: BP 124/50; PULSE 100; BMI 28.0
== END 2025-01-03 09:26 | disposition home or self-care (01) ==
LOC: HO.HCS 09:00
PROVIDERS: PCP Internal Medicine; Visit Provider Internal Medicine Cardiovascular Disease
DX: I50.32 Chronic diastolic (congestive) heart failure (principal); Z95.0 Presence of cardiac pacemaker
CPT/HCPCS: 93280; 99214; G2211

== ENCOUNTER → 2025-01-03 08:59 | Outpatient (BNVA) | payer OTHER, SELFPAY | PROVIDERS: PCP Internal Medicine; Visit Provider Internal Medicine Cardiovascular Disease | DX: I11.0 Hypertensive heart disease with heart failure (principal); I50.32 Chronic diastolic (congestive) heart failure; Z95.0 Presence of cardiac pacemaker | CPT/HCPCS: 93280; 99212 ==

== ENCOUNTER 2025-01-06 09:07 | Outpatient (REF) | payer OTHER, SELFPAY ==
[2025-01-06 10:04] LABS: Appearance Urine Clear; Glucose Urine UA >=1000 mg/dL (Negative); PH 6.5 (5.0-9.0); Specific Gravity - Urine 1.020 (1.005-1.025); UMIC TRIGGER UA YES
[2025-01-06 10:12] LABS: Total Protein Urine Random 9 mg/dL (<12)
== END 2025-01-06 09:08 | disposition home or self-care (01) ==
LOC: HO.LNP 09:07
PROVIDERS: Visit Provider Internal Medicine Hypertension Specialist
DX: I10 Essential (primary) hypertension (principal); E83.42 Hypomagnesemia
CPT/HCPCS: 81001; 81003; 82436; 82570; 84133; 84156; 84300

== ENCOUNTER → 2025-01-08 23:59 | Outpatient (BNV) | payer OTHER, SELFPAY ==
--- NOTE | 2025-01-10 12:29 | A.OFFVIS_ITS ---
Intake Visit Reasons: Remote device check- [place] Allergies egg (EGG) Adverse Reaction (Intermediate, Verified 01/03/25 09:07) DIARRHEA oats (OATS) Adverse Reaction (Intermediate, Verified 01/03/25 09:07) DIARRHEA FROM OATMEAL Pioglitazone HCl Adverse Reaction (Intermediate, Uncoded 12/22/24 11:19) edema PFSH Medical History Dementia Acute and chronic respiratory failure CHF exacerbation COPD exacerbation Acute kidney failure Acute on chronic heart failure with preserved ejection fraction (HFpEF) Acute on chronic combined systolic (congestive) and diastolic (congestive) heart failure Acute hypoxemic respiratory failure Acute on chronic diastolic (congestive) heart failure Hearing loss CHF (congestive heart failure) Iron deficiency anemia Left hemiparesis Cardiac pacemaker in situ Diastolic dysfunction Ear discomfort Otitis media Moderate asthma Pure hypercholesterolemia Osteoporosis B12 deficiency Gallstones GERD (gastroesophageal reflux disease) Hypovitaminosis D History of stroke Diabetes mellitus Essential hypertension Surgical History History of pacemaker Family History Father No problems noted. Mother No problems noted. Social History Household Members: Family Housing: House Housing Other:: lives with daughter Are you a primary respiratory care specialist to a significant other at home: No Do you presently have visiting nurse or other home services: Yes (PT and Nursing) Alcohol intake: never Patient Tobacco Use Status: Former Tobacco user Tobacco use type: Cigarette e-Cigarette/Vaping Use: Never Used Second Hand Smoke Exposure: No Advance Directives Date on File: 07/02/21 service: No Current occupational status: disabled Cognitive needs: Yes (walker) Hearing needs: No Vision needs: Yes (glasses) Office Procedures Cardiac Device Check Cardiac Device Check Details: Remote pacemaker report generated 01/08/2025. Pacemaker function is adequate [id number] Cardiac Device Interrogation, pacemaker Procedure code (CPT) selection complete Assessment & Plan Assessment & Plan (1) Cardiac pacemaker in situ: Code(s): Z95.0 - Presence of cardiac pacemaker Category: Medical Plan: See above Coding Level of Care Code Procedure Only Diagnoses Cardiac pacemaker in situ Z95.0 CPT Codes Cardiac Device Check - Cardiac Device 12: [id number] Cardiac Device Interrogation, pacemaker ([id number])
== END ==
PROVIDERS: PCP Internal Medicine; Visit Provider Internal Medicine Cardiovascular Disease
DX: Z45.018 Encounter for adjustment and management of other part of cardiac pacemaker (principal)
CPT/HCPCS: 93294

== ENCOUNTER 2025-01-29 14:23 | Outpatient (REF) | payer OTHER, SELFPAY ==
--- NOTE | ~2025-01-29 | US_ITS ---
EXAMINATION: US KIDNEY BILATERAL HISTORY: I10 - Essential (primary) hypertension TECHNIQUE: Real-time grayscale ultrasound imaging of the kidneys was performed and images were reviewed. COMPARISON: Correlation is made with a CT of the abdomen with contrast dated 08/26/2023. FINDINGS: Right kidney: The right kidney measures 10.1 x 4.0 x 4.4 cm. There is renal cortical thinning. There are no masses. There is no hydronephrosis or renal calculi. Left Kidney: The left kidney measures 8.2 x 4.4 x 4.3 cm. There is renal cortical thinning. There is a 1.6 x 1.1 x 1.2 cm cyst in the interpolar region. There is no hydronephrosis or renal calculi. US/US renal BI IMPRESSION: Bilateral renal cortical thinning. 1.6 cm left renal cyst. Electronically signed by: Prashanth Potter MD 01/29/2025 03:18 PM [facility] [place]
== END 2025-01-29 14:24 | disposition home or self-care (01) ==
LOC: HO.US 14:23
PROVIDERS: PCP Internal Medicine; Visit Provider Internal Medicine Hypertension Specialist
DX: I10 Essential (primary) hypertension (principal); E83.42 Hypomagnesemia
CPT/HCPCS: 76775

== ENCOUNTER → 2025-01-29 14:34 | Outpatient (BNV) | payer OTHER, SELFPAY | PROVIDERS: PCP Internal Medicine; Visit Provider Radiology Diagnostic Radiology | DX: N28.1 Cyst of kidney, acquired (principal); N26.1 Atrophy of kidney (terminal) | CPT/HCPCS: 76775 ==

== ENCOUNTER 2025-01-30 07:28 | Outpatient (REF) | payer OTHER, SELFPAY ==
--- NOTE | ~2025-01-30 | CT_ITS ---
EXAMINATION: CT CHEST WITHOUT IV CONTRAST INDICATION: R91.8 - Other nonspecific abnormal finding of lung field COMPARISON: Comparison is made with the prior examinations dated 10/30/2024 and 07/27/2024. TECHNIQUE: Helical CT scan of the chest was performed without intravenous contrast. Coronal and sagittal reformatted images were generated and reviewed. This CT exam was performed with one or more of the following dose reduction techniques: automated exposure control, adjustment of the mA and/or kV according to patient size, use of iterative reconstruction technique. DLP: 115 mGy-cm CHEST: THYROID: The thyroid is unremarkable. LUNGS: There is mild emphysema. Again seen is biapical scarring. Innumerable tiny calcified granulomas are again noted scattered throughout both lungs. There is a 10 mm groundglass opacity in the right upper lobe (series 5, image 50) without significant change. There is a 3 mm nodule in the left upper lobe (series 5, image 39). A small patchy airspace opacity is seen at the left lung base (series 5, image 101) which may be inflammatory in nature. There is linear scarring in the right lower lobe. MEDIASTINUM: There is no mediastinal lymphadenopathy. MEDARDO: Evaluation of the hilar regions is limited by lack of intravenous contrast material. CARDIOVASCULATURE: The heart is normal in size. A pacemaker is again seen in place. There is no pericardial effusion. The thoracic aorta is normal in caliber. DEGREE OF CORONARY CALCIFICATION: moderate PLEURA: There is no pleural effusion. No pneumothorax. MAIN AIRWAYS: The mainstem bronchi and proximal branches are patent. AXILLA: There is no axillary lymphadenopathy. BONES AND SOFT TISSUES: Again seen is a mild compression deformity of a lower thoracic vertebral body. UPPER ABDOMEN: The visualized portions of the liver, spleen, and adrenals have an unremarkable unenhanced appearance. There is a small hiatal hernia. CT/CT chest wo IV con IMPRESSION: 1. Small patchy airspace opacity at the left lung base which may be inflammatory in nature. Follow-up is recommended. 2. Scattered bilateral lung nodules as described. 3. Mild emphysema. Because mild emphysema is an independent risk factor for lung cancer, consider entering the patient into a program of yearly lung cancer screening with low dose chest CT. Electronically signed by: Prashanth Potter MD 01/30/2025 08:32 AM [facility]
== END 2025-01-30 07:29 | disposition home or self-care (01) ==
LOC: HO.CT 07:28
PROVIDERS: PCP Internal Medicine; Visit Provider Nurse Practitioner Family
DX: R91.8 Other nonspecific abnormal finding of lung field (principal)
CPT/HCPCS: 71250

== ENCOUNTER → 2025-01-30 07:30 | Outpatient (BNV) | payer OTHER, SELFPAY | PROVIDERS: PCP Internal Medicine; Visit Provider Radiology Diagnostic Radiology | DX: R91.8 Other nonspecific abnormal finding of lung field (principal); J43.9 Emphysema, unspecified | CPT/HCPCS: 71250 ==

== ENCOUNTER 2025-02-12 11:25 | Outpatient (REF) | payer OTHER, SELFPAY ==
[2025-02-12 13:57] LABS: Creatinine, mg/dL 42.06
[2025-02-12 14:02] LABS: Creatinine, mg/dL 42.34; Phosphorus mg/dL < 2.4 mg/dL
[2025-02-13 07:12] LABS: Total Volume 24 Hour Urine 1500 mL
[2025-02-13 07:13] LABS: Total Volume 24 Hour Urine 1500 mL
== END 2025-02-12 11:26 | disposition home or self-care (01) ==
LOC: HO.10HDLNP 11:25
PROVIDERS: Internal Medicine Hypertension Specialist; Visit Provider Internal Medicine Endocrinology, Diabetes & Metabolism
DX: M81.0 Age-related osteoporosis without current pathological fracture (principal); I10 Essential (primary) hypertension; E83.42 Hypomagnesemia
CPT/HCPCS: 82340; 82570; 83735; 84105

== ENCOUNTER 2025-02-13 20:36 | Emergency (ER) | payer OTHER, SELFPAY ==
--- NOTE | 2025-02-13 | ECG_ITS ---
Test Reason : AMS Blood Pressure : */* mmHG Vent. Rate : 79 BPM Atrial Rate : 79 BPM P-R Int : 152 ms QRS Dur : 76 ms QT Int : 420 ms P-R-T Axes : 88 17 29 degrees QTcB Int : 481 ms Sinus rhythm with Premature atrial complexes Otherwise normal ECG When compared with ECG of 09-May-2024 12:36, Premature atrial complexes are now Present ST no longer elevated in Lateral leads Nonspecific T wave abnormality now evident in Lateral leads Referred By: Generic ED Physician Electronically Signed By: NANCY HARDY MD
--- NOTE | ~2025-02-13 | XR_ITS ---
CLINICAL HISTORY: cough 2 view chest x-ray Comparison: Chest CT from 01/30/2025. Findings: New small bilateral pleural effusions with mild bibasilar atelectasis/pneumonitis. Mild cardiomegaly redemonstrated accentuated by technique. Calcifications involve the tortuous aorta. Left-sided cardiac device with leads again noted. No pneumothorax. Degenerative changes include imaged shoulders, AC joints, and spine. IMPRESSION: 1. Small bilateral pleural effusions. 2. Underlying bibasilar atelectasis/consolidation. This document has been electronically signed by: Aman Payan MD on 02/14/2025 01:37:34
--- NOTE | ~2025-02-13 | XR_ITS ---
CLINICAL HISTORY: abd pain, constipation - best images possible, patient unable to follow commands. 2 view abdomen Comparison: CT of the abdomen from 08/26/2023 Findings: Please refer to chest x-ray report separate report for small pleural effusions, additional thoracic findings, and bibasilar atelectasis. No small bowel dilatation in the imaged abdomen. Likely small hiatal hernia. Paucity of the bowel-gas likely related to technique and patient body habitus. No definite free intraperitoneal air by radiographs; with gas noted in the stomach. Severe stool burden noted, including in the imaged cecum. Vascular calcifications present, including phleboliths in the pelvis. Degenerative changes include imaged hips of the partially imaged spine. IMPRESSION: 1. No small bowel obstruction by radiographs. 2. Severe stool burden. 3. Likely small hiatal hernia. This document has been electronically signed by: Aman Payan MD on 02/14/2025 01:32:59
[2025-02-13 20:46] VITALS: BP 144/90; BP 149/61; PULSE 79; RESP 20; TEMP 37; O2SAT 94; O2SAT 95; BMI 25.4
[2025-02-13 21:18] LABS: MANUAL DIFF FLAG NO
[2025-02-13 21:19] LABS: Hematocrit 37.0 % (37.0-47.0); Hemoglobin 11.8 g/dl (12.0-16.0); Imm Gran Abs Auto 0.04 X10*3/uL (0.00-0.03); Imm Gran Pct Auto 0.3 % (0.0-0.4); Lymphocytes Absolute Auto 1.7 X10*3/uL (1.2-4.9); Mean Corpuscular HGB Conc 31.9 g/dl (31.0-35.0); Mean Corpuscular Hemoglobin 24.8 pg (27.0-33.0); Mean Corpuscular Volume 77.9 fL (80.0-98.0); NRBC Abs Auto 0.000 X10*3/uL (0.0-0.012); NRBC Pct Auto 0.0 /100WBC (0.0-0.2); Platelet Count 249 X10*3/uL (160-400); Red Blood Count 4.75 X10*6/uL (4.20-5.50); White Blood Count 12.0 X10*3/uL (4.8-10.8)
--- NOTE | 2025-02-13 21:19 | PC.NURSE ---
Labs drawn, patient is a difficult stick, at times difficult to redirect. Unable to obtain IV access. Labs drawn from left hand. Daughter at bedside. Hx dementia at baseline, ?failure to thrive, refusing to eat or take meds x2 days. Awaiting ED provider evaluation. Changed over into hospital attire.
[2025-02-13 22:03] LABS: INTERNATIONAL NORM RATIO 1.0 (0.9-1.1); Prothrombin Time 11.7 SEC (11.2-13.5)
--- NOTE | 2025-02-13 22:23 | PC.NURSE ---
Recollect drawn and sent for analysis. Results pending. Care ongoing by this RN. Family remains at bedside.
[2025-02-13 22:25] LABS: Alanine Aminotransferase 21 U/L (0-31); Albumin Level 3.8 g/dL (3.5-5.0); Alkaline Phosphatase 88 U/L (39-117); Anion Gap 12 (12-20); Aspartate Amino Transferase 27 U/L (5-31); Blood Urea Nitrogen 17 mg/dL (9-16); Calcium 9.3 mg/dL (8.4-10.2); Carbon Dioxide 34 mmol/L (22-29); Chloride 96 mmol/L (96-108); Creatinine Clr Calc Pharmacy 32.6; Estimated Glomerular Filt Rate 46; Magnesium 1.2 mg/dL (1.6-2.6); Potassium 3.6 mmol/L (3.3-5.1); Sodium 138 mmol/L (135-145); Total Protein 7.1 g/dL (6.5-8.0)
[2025-02-13 22:43] LABS: Resp Syncy Virus RNA Qual PCR NEGATIVE (Negative); SARS COV2 PCR INHOUSE NEGATIVE (Negative)
[2025-02-13] MEDS: Magnesium Sulfate/H2O 2 GM/50 ML PIGGYBACK IV (23:03)
--- NOTE | 2025-02-13 23:28 | ED_ITS ---
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 Uzma Bermeo HPI Narrative: 79-year-old female with dementia brought in for altered mental status and three days of constant, poorly localized discomfort described as heartburn-like chest/epigastric pain, abdominal pain (radiating front to back), and eye pain. Associated symptoms include nausea with one episode of emesis last night, cough productive of phlegm, and generalized weakness. She denies diarrhea and fever. Caregiver notes recent exposure to cold weather yesterday while out for an appointment; influenza test performed today was negative at the doctor's office. Two weeks ago several household members had a ?virus.? Past history significant for dementia, hypertension, hyperlipidemia, stroke ~10?12 years ago, seizure disorder, pacemaker placement, chronic constipation, and nighttime oxygen use (patient sometimes removes O2 herself). No recent injuries from falls. In the ED her magnesium level returned low and IV supplementation was given. Related Data Previous Rx's ?Medication ?Instructions ?Recorded blood-glucose meter (FreeStyle #1 ea 01/03/20 Orient Lite kit) blood sugar diagnostic (FreeStyle #100 ea 02/04/23 Lite Strips) hydrocortisone 1 % topical cream 1 appl topical BID AK N skin 08/11/23 (Anti-Itch (hydrocortisone)) irritation 2 weeks #28.4 grams levalbuterol HCl 1.25 mg/3 mL 1.25 mg (3 mL) inhalatio n Q4-6H 09/14/23 solution for nebulization PRN shortness of breath or wheezing #90 mL hospital bed #1 ea 09/22/23 compr.stocking,knee,long,large #12 ea 10/24/23 blood sugar diagnostic (FreeStyle #100 ea 12/24/23 Lite Strips) albuterol sulfate 90 mcg/actuation 2 puff inhalation Q 6H PRN 02/08/24 aerosol inhaler (Ventolin HFA) bronchospasm 30 days #6 .7 grams metformin 500 mg tablet,extended 1,500 mg (3 x 500 mg) PO DAILY 90 07/12/24 release 24 hr days #270 tabs Power lift chair #1 ea 07/20/24 sennosides 8.6 mg capsule (senna) 8.6 mg PO BEDTIME AK N constipation 08/08/24 30 days #30 caps empagliflozin 10 mg tablet 10 mg PO DAILY #90 tabs 06/30 (Jardiance) oxybutynin chloride 10 mg 10 mg PO DAILY #90 caps 06/30 tablet,extended release 24 hr nystatin 100,000 unit/mL oral 1 ml buccal BID PRN oral thrush 30 08/25/24 suspension days #60 mL fluticasone fur. 200 mcg-umeclid 1 inh inhalation JOHN Y #60 ea 09/22/24 62.5 mcg-vilant 25 mcg inhalat.powder (Trelegy Ellipta) cholecalciferol (vitamin D3) 50 50 mcg PO DAILY #30 ca ps 10/24/24 mcg (2,000 unit) capsule niacin 500 mg tablet,extended 500 mg PO BEDTIME 90 day s #90 tabs 11/04/24 release 24 hr calcium acetate 667 mg tablet 667 mg PO BID 90 days #1 80 tabs 11/26/24 magnesium oxide 500 mg capsule 500 mg PO DAILY 30 days #30 caps 11/26/24 ondansetron 8 mg disintegrating 8 mg PO Q12H PRN nause a and 11/30/24 tablet vomiting 30 days #60 tabs atorvastatin 80 mg tablet 80 mg PO DAILY #90 tabs 11/07 08/30 cyanocobalamin (vitamin B-12) 1,000 mcg PO .once a wee k 30 days 12/02/24 1,000 mcg tablet (Vitamin B-12) #4 tabs omeprazole 20 mg capsule,delayed 20 mg PO DAILY@629 # 90 caps 12/02/24 release citalopram 20 mg tablet 20 mg PO DAILY 90 days #90 t abs 12/03/24 meclizine 25 mg tablet 25 mg PO DAILY PRN motion si ckness 12/29/24 30 days #30 tabs aspirin 81 mg tablet,delayed 81 mg PO DAILY 90 days #9 0 tabs 12/30/24 release cetirizine 10 mg tablet (All Day 10 mg PO DAILY PRN al lergy 12/30/24 Allergy (cetirizine)) symptoms 90 days #90 tabs simethicone 125 mg chewable tablet 125 mg PO TID PRN a bdominal 12/30/24 (Gas Relief (simethicone)) distention 30 days #90 tabs amlodipine 10 mg tablet 10 mg PO DAILY #90 tabs 12/07 08/30 losartan 25 mg tablet 25 mg PO DAILY #90 caps 12/07 08/30 ferrous sulfate 325 mg (65 mg 325 mg PO .once a week 9 0 days #12 01/25/25 iron) tablet (iron) tabs furosemide 80 mg tablet 80 mg PO DAILY 30 days #30 t abs 01/25/25 dicyclomine 20 mg tablet 20 mg PO TID 30 days #90 tab s 01/28/25 doxazosin 2 mg tablet (Cardura) 2 mg PO DAILY #30 tabs 01/29/25 hydralazine 100 mg tablet 100 mg PO BID #180 caps 01/07 06/30 Adult pull ups #300 ea 02/09/25 Wipes #4 ea 02/09/25 gloves #2 ea 02/09/25 benzonatate 100 mg capsule 100 mg PO BID PRN cough 5 d ays #10 02/13/25 caps Magic Mouthwash 15 ml PO TID #240 mL 5 Diphen/Nystat/Antacid 1:1:1 240 mL suspension cefdinir 300 mg capsule 300 mg PO BID 7 days #14 cap s 02/14/25 doxycycline monohydrate 100 mg 100 mg PO BID 7 days #1 4 caps 02/14/25 capsule polyethylene glycol 3350 17 17 g PO DAILY #238 grams 1 04/17/24 gram/dose oral powder (Miralax) metoprolol succinate 100 mg 100 mg PO DAILY 90 days #9 0 tabs 02/15/25 tablet,extended release 24 hr Allergies Allergy/AdvReac Type Severity Reaction Status Date / Time egg (EGG) AdvReac Intermediate DIARRHEA Verified 02/13/25 20:49 oats (OATS) AdvReac Intermediate DIARRHEA Verified 02/13/25 20:49 FROM OATMEAL Pioglitazone HCl AdvReac Intermediate edema Uncoded 02/13/25 20:49 Review of Systems 2 Review of Systems: as per HPI, full review of systems performed and negative but for the above mentioned pertinent positives and negatives. PMFSH Past Medical History Medical History Dementia Acute and chronic respiratory failure CHF exacerbation COPD exacerbation Acute kidney failure Acute on chronic heart failure with preserved ejection fraction (HFpEF) Acute on chronic combined systolic (congestive) and diastolic (congestive) heart failure Acute hypoxemic respiratory failure Acute on chronic diastolic (congestive) heart failure Hearing loss CHF (congestive heart failure) Iron deficiency anemia Left hemiparesis Cardiac pacemaker in situ Diastolic dysfunction Ear discomfort Otitis media Moderate asthma Pure hypercholesterolemia Osteoporosis B12 deficiency Gallstones GERD (gastroesophageal reflux disease) Hypovitaminosis D History of stroke Diabetes mellitus Essential hypertension Surgical History History of pacemaker Family History Family History Father No problems noted. Mother No problems noted. Social History Social History Household Members: Family Housing: House Housing Other:: lives with daughter Are you a primary care attendant to a significant other at home: No Do you presently have visiting nurse or other home services: Yes (PT and Nursing) Alcohol intake: never Patient Tobacco Use Status: Former Tobacco user Tobacco use type: Cigarette e-Cigarette/Vaping Use: Never Used Second Hand Smoke Exposure: No Advance Directives Date on File: 07/02/21 service: No Current occupational status: disabled Cognitive needs: Yes (walker) Hearing needs: No Vision needs: Yes (glasses) Physical Exam 2 Exam: Exam: GENERAL: Chronically ill-appearing, conversant, no acute distress. SKIN: Normal skin color for ethnicity, warm, dry, no rashes noted. HEENT: Normocephalic, atraumatic, no stridor, posterior oropharynx nonerythematous, EOMI. NECK: Soft, supple, full ROM, midline structures nontender, no step-offs, no deformities, no lymphadenopathy. CHEST: Heart regular rate and rhythm, no murmurs, symmetric chest rise and fall. PULMONARY: Clear to auscultation bilaterally, no labored breathing, no wheezes/rhales/ rhonchi. ABDOMINAL: Soft, nondistended, diffusely tender to palpation, no masses palpable, quiet bowel sounds in all quadrants. : Deferred. MUSCULOSKELETAL: Normal tone, full range of motion, no deformities, no peripheral edema. NEURO: Alert and oriented to person, CN II through XII intact, no focal neurologic deficits. PSYCHIATRIC: Flat affect, fluid speech, appropriate demeanor. Vital Signs: Vital Signs: Last Vital Signs Temp 98.6 F 02/14/25 06:09 Pulse 79 02/14/25 06:09 Resp 20 02/14/25 06:09 BP 149/61 H 02/14/25 06:09 Pulse Ox 94 02/14/25 06:09 O2 Del Method Room Air 02/14/25 06:09 BMI result Body Mass Index 25.4 Medications Administered Discontinued Medications Generic Name Dose Route Start Last Admin Trade Name Freq PRN Reason Stop Dose Admin Doxycycline Monohydrate 100 mg 02/14/25 04:11 02/14/25 05:04 Doxycycline Monohydrate 100 Mg Capsule PO 02/14/25 04:12 100 mg ONCE ONE Administration Magnesium Sulfate 2 gm in 50 mls @ 25 mls/hr 02/13/25 22:26 02/14/25 02:09 Magnesium Sulfate/H2o IV 02/14/25 00:25 Infused ONCE ONE Infusion Lactated Ringer's 1,000 mls @ 999 mls/hr 02/13/25 23:28 02/14/25 02:09 Lr IV 02/14/25 00:28 Infused .Q1H1M ONE Infusion Ceftriaxone Sodium 1 gm/ 50 mls @ 100 mls/hr 02/14/25 04:11 02/14/25 06:01 Sodium Chloride IV 02/14/25 04:40 Infused ONCE ONE Infusion Medical Decision Making Medical Decision Making MDM Narrative: Elderly female with dementia presenting with AMS and diffuse pain. Work-up in progress for infectious, metabolic, and gastrointestinal causes. Hypomagnesemia identified and treated. Problem #1: Altered mental status / Diffuse pain (etiology undifferentiated) Assessment: 3 days of constant chest/abdominal/eye pain with nausea, cough, and increased confusion. Differential includes viral syndrome, pneumonia, UTI, metabolic disturbance, and constipation. Plan: - Continue diagnostic evaluation (labs, chest and abdominal radiographs, urine studies). - Monitor mental status in ED. Problem #2: Possible pneumonia Assessment: Productive cough, weakness, no fever. Plan: - Chest X-ray ordered to evaluate for infiltrate. - Treat based on imaging and clinical findings. Problem #3: Hypomagnesemia Assessment: Low serum magnesium on ED labs. Plan: - IV magnesium administered. - Repeat level and re-dose as needed. Problem #4: Possible urinary tract infection Assessment: AMS in elderly patient; infection in differential. Plan: - Attempt to obtain urine sample for UA and culture. - Manage per results. Problem #5: Constipation Assessment: History of chronic constipation; uncertain last bowel movement; abdominal pain may relate. Plan: - Abdominal X-ray ordered to assess stool burden. - Treat based on radiographic findings. Extensive discussion with the daughter regarding treatment and plan for further care of the bilateral pleural effusions associated with her productive cough. Obviously she is quite high risk for pneumonia severity given her age and comorbidities with an elevated white blood cell count. That being said, the patient is ambulatory and mentating at her baseline, taking p.o. in the emergency department without issue. Daughter would like to try oral medications at home to see if she improves rather than be admitted. Encouraged close follow up with the primary care as well as returning to the emergency department with any worsening condition. Differential Diagnosis Differential Diagnoses: The differential diagnosis associated with the presentation includes (as above) Admission/Observation Consideration of admission/observation: Escalation of care including admission/observation considered Lab Data MDM Lab Attestation statement: I reviewed the patient's lab results. 02/13/25 21:14 02/13/25 22:00 Labs: Lab Results 02/13/25 02/13/25 02/13/25 Range/Units 21:14 21:59 22:00 WBC 12.0 H (4.8-10.8) X10*3/uL RBC 4.75 (4.20-5.50) X10*6/uL Hgb 11.8 L (12.0-16.0) g/dl Hct 37.0 (37.0-47.0) % MCV 77.9 L (80.0-98.0) fL MCH 24.8 L (27.0-33.0) pg MCHC 31.9 (31.0-35.0) g/dl RDW 15.2 (11.0-16.0) % Plt Count 249 (160-400) X10*3/uL MPV 9.7 (9.4-12.3) fL Immature Gran % (Auto) 0.3 (0.0-0.4) % Neut % (Auto) 73.2 H (45-73) % Lymph % (Auto) 14.0 L (20-40) % [place] % (Auto) 11.6 H (2-11) % Eos % (Auto) 0.6 (0-4) % Baso % (Auto) 0.3 (0-2) % Lymph # (Auto) 1.7 (1.2-4.9) X10*3/uL [place] # (Auto) 1.4 H (0.1-1.2) X10*3/uL Eos # (Auto) 0.1 (0.0-0.4) X10*3/uL Baso # (Auto) 0.0 (0.0-0.2) X10*3/uL Abs Immat Gran (auto) 0.04 H (0.00-0.03) X10*3/uL Absolute Neuts (auto) 8.7 H (2.0-8.3) x10*3/uL Absolute Nucleated RBC 0.000 (0.0-0.012) X10*3/uL Nucleated RBC % (auto) 0.0 (0.0-0.2) /100WBC PT 11.7 (11.2-13.5) SEC INR 1.0 (0.9-1.1) Sodium 138 (135-145) mmol/L Potassium 3.6 (3.3-5.1) mmol/L Chloride 96 (96-108) mmol/L Carbon Dioxide 34 H (22-29) mmol/L Anion Gap 12 (12-20) BUN 17 H (9-16) mg/dL Creatinine 1.13 (0.5-1.4) mg/dL Estim Creat Clear Calc 32.6 Estimated GFR 46 Random Glucose 188 H (60-115) mg/dL Calcium 9.3 D (8.4-10.2) mg/dL Magnesium 1.2 L* (1.6-2.6) mg/dL Total Bilirubin 0.6 (0.0-1.0) mg/dL AST 27 (5-31) U/L ALT 21 (0-31) U/L Alkaline Phosphatase 88 (39-117) U/L Troponin I High Sens 15.7 (<3.5-17.0) ng/L Total Protein 7.1 (6.5-8.0) g/dL Albumin 3.8 (3.5-5.0) g/dL Urine Color Urine Appearance Urine pH (5.0-9.0) Ur Specific [place] (1.005-1.025) Urine Protein (Neg-Trace) mg/dL Urine Glucose (UA) (Negative) mg/dL Urine Ketones (Negative) mg/dL Urine Blood (Negative) Urine Nitrite (Negative) Ur Leukocyte Esterase (Negative) Urine RBC (0-2) /HPF Urine WBC (0-5) /HPF Ur Squamous Epith Cells (0-2) /HPF Urine Bacteria (None Seen) Hyaline Casts (0-2) /LPF Influenza Type A (PCR) NEGATIVE (Negative) Influenza Type B (PCR) NEGATIVE (Negative) RSV RNA Qual (PCR) NEGATIVE (Negative) SARS-CoV-2 RNA (RT-PCR) NEGATIVE (Negative) 02/14/25 Range/Units 02:24 WBC (4.8-10.8) X10*3/uL RBC (4.20-5.50) X10*6/uL Hgb (12.0-16.0) g/dl Hct (37.0-47.0) % MCV (80.0-98.0) fL MCH (27.0-33.0) pg MCHC (31.0-35.0) g/dl RDW (11.0-16.0) % Plt Count (160-400) X10*3/uL MPV (9.4-12.3) fL Immature Gran % (Auto) (0.0-0.4) % Neut % (Auto) (45-73) % Lymph % (Auto) (20-40) % [place] % (Auto) (2-11) % Eos % (Auto) (0-4) % Baso % (Auto) (0-2) % Lymph # (Auto) (1.2-4.9) X10*3/uL [place] # (Auto) (0.1-1.2) X10*3/uL Eos # (Auto) (0.0-0.4) X10*3/uL Baso # (Auto) (0.0-0.2) X10*3/uL Abs Immat Gran (auto) (0.00-0.03) X10*3/uL Absolute Neuts (auto) (2.0-8.3) x10*3/uL Absolute Nucleated RBC (0.0-0.012) X10*3/uL Nucleated RBC % (auto) (0.0-0.2) /100WBC PT (11.2-13.5) SEC INR (0.9-1.1) Sodium (135-145) mmol/L Potassium (3.3-5.1) mmol/L Chloride (96-108) mmol/L Carbon Dioxide (22-29) mmol/L Anion Gap (12-20) BUN (9-16) mg/dL Creatinine (0.5-1.4) mg/dL Estim Creat Clear Calc Estimated GFR Random Glucose (60-115) mg/dL Calcium (8.4-10.2) mg/dL Magnesium (1.6-2.6) mg/dL Total Bilirubin (0.0-1.0) mg/dL AST (5-31) U/L ALT (0-31) U/L Alkaline Phosphatase (39-117) U/L Troponin I High Sens (<3.5-17.0) ng/L Total Protein (6.5-8.0) g/dL Albumin (3.5-5.0) g/dL Urine Color Yellow Urine Appearance Clear Urine pH 7.5 (5.0-9.0) Ur Specific [place] 1.020 (1.005-1.025) Urine Protein Trace (Neg-Trace) mg/dL Urine Glucose (UA) >=1000 H (Negative) mg/dL Urine Ketones Negative (Negative) mg/dL Urine Blood Negative (Negative) Urine Nitrite Negative (Negative) Ur Leukocyte Esterase Negative (Negative) Urine RBC 0-2 (0-2) /HPF Urine WBC 0-5 (0-5) /HPF Ur Squamous Epith Cells 0-2 (0-2) /HPF Urine Bacteria None Seen (None Seen) Hyaline Casts 0-2 (0-2) /LPF Influenza Type A (PCR) (Negative) Influenza Type B (PCR) (Negative) RSV RNA Qual (PCR) (Negative) SARS-CoV-2 RNA (RT-PCR) (Negative) Independent Interpretation I performed an independent interpretation of an: EKG and Plain X-Ray Radiology Impression Discussion of test interpretation with radiology: I have reviewed the radiologist's reading. Independent Historian Clinical information obtained from an independent historian. History obtained from or confirmed by: Other (daughter) External Record Review External record reviewed: Inpatient record Prescription Management I considered prescription management with: Antibiotic and Other (cathartic/promotility agents) Chronic Conditions Patient?s care impacted by: Hypertension and Other (dementia) Social Determinants Patient?s care significantly limited by Social Determinants of Health including: Other Social Determinant of Health Discharge Plan Discharge Clinical Impression: Pleural effusion, Hypomagnesemia, Decreased oral intake, Acute abdominal pain, Constipation Patient Disposition: Home, Self-Care Additional Instructions: Take your antibiotic as prescribed until the course is completed. Do not stop this medication early if you start to feel better. Return to the emergency department with any new or worsening symptoms including: Worsening pain, fevers greater than 100? despite antibiotic treatment, vomiting, or any new symptom that concerns you. Call 911 with any medical emergency. Continue to drink plenty of fluids over the next several days. Use Miralax daily for constipation. Stop using if diarrhea develops. Follow-up with your primary care doctor as soon as possible. Prescriptions: New doxycycline monohydrate 100 mg capsule 100 mg PO BID 7 Days Qty: 14 0RF cefdinir 300 mg capsule 300 mg PO BID 7 Days Qty: 14 0RF polyethylene glycol 3350 [Miralax] 17 gram/dose powder 17 g PO DAILY Qty: 238 0RF Magic Mouthwash Diphen/Nystat/Antacid 1:1:1 240 mL suspension 15 ml PO TID Qty: 240 0RF Rx Instructions: nystatin 100,000 unit/mL oral suspension 80 mL; diphenhydramine 12.5 mg/5 mL oral liquid 80 mL; aluminum-mag hydroxide-simethicone 400 mg-400 mg-40 mg/5 mL oral susp 80 mL; Per 240 mL No Action (DME) blood-glucose meter [FreeStyle Orient Lite] Kit See Rx Instructions .ROUTE .MEDSUPPLY Qty: 1 0RF Rx Instructions: As directed (DME) FreeStyle Lite Strips Strip See Rx Instructions .Route Qty: 100 1RF Rx Instructions: Use 1 test strip once a day (DME) compr.stocking,knee,long,large Misc See Rx Instructions .Route Qty: 12 11RF Rx Instructions: As directed (DME) FreeStyle Lite Strips Strip See Rx Instructions .Route Qty: 100 1RF Rx Instructions: Use 1 test strip once a day ([facility]) Power lift chair See Rx Instructions .Route .MEDSUPPLY Qty: 1 0RF Rx Instructions: As directed senna 8.6 mg capsule 8.6 mg PO BEDTIME PRN (Reason: constipation) 30 Days Qty: 30 0RF Jardiance 10 mg tablet 10 mg PO DAILY Qty: 90 3RF oxybutynin chloride 10 mg tablet extended release 24hr 10 mg PO DAILY Qty: 90 1RF nystatin 100,000 unit/mL suspension 1 ml buccal BID PRN (Reason: oral thrush) 30 Days Qty: 60 0RF Rx Instructions: administer 1/2 of dose in each side of the mouth niacin 500 mg tablet extended release 24 hr 500 mg PO BEDTIME 90 Days Qty: 90 0RF calcium acetate 667 mg tablet 667 mg PO BID 90 Days Qty: 180 1RF magnesium oxide 500 mg capsule 500 mg PO DAILY 30 Days Qty: 30 6RF atorvastatin 80 mg tablet 80 mg PO DAILY Qty: 90 0RF omeprazole 20 mg capsule,delayed release(DR/EC) 20 mg PO DAILY@0630 Qty: 90 0RF cyanocobalamin (vitamin B-12) [Vitamin B-12] 1,000 mcg tablet 1,000 mcg PO .once a week 30 Days Qty: 4 6RF citalopram 20 mg tablet 20 mg PO DAILY 90 Days Qty: 90 0RF meclizine 25 mg tablet 25 mg PO DAILY PRN (Reason: motion sickness) 30 Days Qty: 30 0RF simethicone [Gas Relief (simethicone)] 125 mg tablet,chewable 125 mg PO TID PRN (Reason: abdominal distention) 30 Days Qty: 90 0RF cetirizine [All Day Allergy (cetirizine)] 10 mg tablet 10 mg PO DAILY PRN (Reason: allergy symptoms) 90 Days Qty: 90 1RF aspirin 81 mg tablet,delayed release (DR/EC) 81 mg PO DAILY 90 Days Qty: 90 1RF losartan 25 mg tablet 25 mg PO DAILY Qty: 90 0RF amlodipine 10 mg tablet 10 mg PO DAILY Qty: 90 0RF ferrous sulfate [iron] 325 mg (65 mg iron) tablet 325 mg PO .once a week 90 Days Qty: 12 11RF furosemide 80 mg tablet 80 mg PO DAILY 30 Days Qty: 30 6RF dicyclomine 20 mg tablet 20 mg PO TID 30 Days Qty: 90 1RF hydralazine 100 mg tablet 100 mg PO BID Qty: 180 1RF doxazosin [Cardura] 2 mg tablet 2 mg PO DAILY Qty: 30 0RF (DME) gloves small See Rx Instructions .Route .MEDSUPPLY Qty: 2 11RF Rx Instructions: As directed ([facility]) Adult pull ups large See Rx Instructions .Route .MEDSUPPLY Qty: 300 11RF Rx Instructions: As directed ([facility]) Wipes See Rx Instructions .Route .MEDSUPPLY Qty: 4 11RF Rx Instructions: As directed benzonatate 100 mg capsule 100 mg PO BID PRN (Reason: cough) 5 Days Qty: 10 0RF metoprolol succinate 100 mg tablet extended release 24 hr 100 mg PO DAILY 90 Days Qty: 90 0RF ([facility]) hospital bed Kit See Rx Instructions .Route Qty: 1 0RF Rx Instructions: As directed hydrocortisone [Anti-Itch (HC)] 1 % cream 1 appl topical BID PRN (Reason: skin irritation) 14 Days Qty: 28.4 0RF levalbuterol HCl 1.25 mg/3 mL solution for nebulization 1.25 mg inhalation Q4-6H PRN (Reason: shortness of breath or wheezing) Qty: 90 1RF albuterol sulfate [Ventolin HFA] 90 mcg/actuation HFA aerosol inhaler 2 puff inhalation Q6H PRN (Reason: bronchospasm) 30 Days Qty: 6.7 1RF ondansetron 8 mg tablet,disintegrating 8 mg PO Q12H PRN (Reason: nausea and vomiting) 30 Days Qty: 60 3RF Trelegy Ellipta 200-62.5-25 mcg blister with device 1 inh inhalation DAILY Qty: 60 6RF cholecalciferol (vitamin D3) 50 mcg (2,000 unit) capsule 50 mcg PO DAILY Qty: 30 4RF metformin 500 mg tablet extended release 24 hr 1,500 mg PO DAILY 90 Days Qty: 270 3RF Interventions: ED Discharge Assessment Last Done: 02/14/25 06:09 Discharge Date/Time: 02/14/25 06:15 Print Language: German
[2025-02-13 23:34] LABS: Troponin-I High Sensitivity 15.7 ng/L (<3.5-17.0)
[2025-02-13] MEDS: Lactated Ringers 1,000 ML 999 ML IV (23:51)
[2025-02-14] VITALS: BP 149/61; PULSE 79; RESP 20; TEMP 37; O2SAT 94
[2025-02-14 02:00] VITALS: BP 149/61; PULSE 79; RESP 20; TEMP 37; O2SAT 94
[2025-02-14 02:51] LABS: Appearance Urine Clear; Glucose Urine UA >=1000 mg/dL (Negative); PH 7.5 (5.0-9.0); Specific Gravity - Urine 1.020 (1.005-1.025); UMIC TRIGGER UACC YES
[2025-02-14 04:00] VITALS: BP 149/61; PULSE 79; RESP 20; TEMP 37; O2SAT 94
[2025-02-14 06:09] VITALS: BP 149/61; PULSE 79; RESP 20; TEMP 37; O2SAT 94
== END 2025-02-14 06:15 | disposition home or self-care (01) ==
PROVIDERS: Emergency Provider Emergency Medicine; PCP Internal Medicine
DX: J90 Pleural effusion, not elsewhere classified (principal); R63.8 Other symptoms and signs concerning food and fluid intake; E83.42 Hypomagnesemia; R62.7 Adult failure to thrive; R10.9 Unspecified abdominal pain; K59.00 Constipation, unspecified; R41.82 Altered mental status, unspecified; R05.9 Cough, unspecified; Z03.818 Encounter for observation for suspected exposure to other biological agents ruled out; R94.31 Abnormal electrocardiogram [ECG] [EKG]; E11.9 Type 2 diabetes mellitus without complications; I10 Essential (primary) hypertension; Z87.891 Personal history of nicotine dependence
CPT/HCPCS: 71046; 74022; 80053; 81001; 83735; 84484; 85025; 85610; 87637; 93005; 96365; 96366; 96367; 99284; J0696; J3475; J7120

== ENCOUNTER → 2025-02-13 20:57 | Outpatient (BNV) | payer OTHER, SELFPAY | PROVIDERS: Emergency Provider Emergency Medicine; PCP Internal Medicine; Visit Provider Internal Medicine Cardiovascular Disease | DX: I49.1 Atrial premature depolarization (principal) | CPT/HCPCS: 93010 ==

== ENCOUNTER → 2025-02-14 00:02 | Outpatient (BNV) | payer OTHER, SELFPAY | PROVIDERS: Emergency Provider Emergency Medicine; PCP Internal Medicine; Visit Provider Radiology Neuroradiology | DX: K59.00 Constipation, unspecified (principal); J90 Pleural effusion, not elsewhere classified | CPT/HCPCS: 71046; 74022 ==

== ENCOUNTER 2025-03-07 09:55 | Outpatient (AMB) | payer OTHER, SELFPAY ==
[2025-03-07 10:03] VITALS: BP 110/58; PULSE 62; O2SAT 95; BMI 27.5
--- NOTE | 2025-03-07 10:03 | MHC.OFFVIS ---
Vital Signs 03/07/25 10:03 Height 4 ft 11 in Weight 136 lb 4 oz BMI 27.5 BP 110/58 L Blood Pressure Location Lt brachial Position Sitting Pulse 62 Pulse Source Pulse Oximeter Pulse Oximetry (%) 95 Oxygen Delivery Method Room Air Intake Visit Reasons: COPD Allergies egg (EGG) Adverse Reaction (Intermediate, Verified 03/07/25 10:06) DIARRHEA oats (OATS) Adverse Reaction (Intermediate, Verified 03/07/25 10:06) DIARRHEA FROM OATMEAL Pioglitazone HCl Adverse Reaction (Intermediate, Uncoded 03/07/25 10:06) edema HPI Comments Details: Nedra is a pleasant 79 year old female, former 60+ pack year smoker, quit 5 years ago with underlying asthma/COPD on 2L supplemental oxygen NOC, HTN, DMII, diastolic dysfunction s/p pacer and CVA with left-sided residual hemiparesis. She is accompanied by her granddaughter today. She visited the emergency room in February due to a significant cough and poor appetite. She was prescribed antibiotics, which led to improvement; her cough is now dry, and her appetite has returned. A CT scan from January 31 showed multiple calcifications consistent with granulomas from a prior infection, as well as several nodules, largest solid 3mm and largest ggo 10mm, which has been stable compared to previous CT scans in July and October. The patient is prescribed Trelegy, which she uses daily, but she has difficulty with the inhaler technique. She also has a nebulizer at home which she uses sometimes. She uses nocturnal oxygen, although she sometimes removes it while sleeping. There has been a significant delay in receiving her overnight oxygen supply, which was ordered on December 22. Pulmonology History - History of multiple pulmonary nodules and granulomas identified on CT scans. - Emergency department visit in February for worsening cough. - Prescribed nocturnal oxygen therapy at 2 liters. - Current medications include Trelegy inhaler and a home nebulizer. [facility] Medical History Dementia Acute and chronic respiratory failure CHF exacerbation COPD exacerbation Acute kidney failure Acute on chronic heart failure with preserved ejection fraction (HFpEF) Acute on chronic combined systolic (congestive) and diastolic (congestive) heart failure Acute hypoxemic respiratory failure Acute on chronic diastolic (congestive) heart failure Hearing loss CHF (congestive heart failure) Iron deficiency anemia Left hemiparesis Cardiac pacemaker in situ Diastolic dysfunction Ear discomfort Otitis media Moderate asthma Pure hypercholesterolemia Osteoporosis B12 deficiency Gallstones GERD (gastroesophageal reflux disease) Hypovitaminosis D History of stroke Diabetes mellitus Essential hypertension Surgical History History of pacemaker Family History Father No problems noted. Mother No problems noted. Social History Household Members: Family Housing: House Housing Other:: lives with daughter Are you a primary med care manager to a significant other at home: No Do you presently have visiting nurse or other home services: Yes (PT and Nursing) Alcohol intake: never Patient Tobacco Use Status: Former Tobacco user Tobacco use type: Cigarette e-Cigarette/Vaping Use: Never Used Second Hand Smoke Exposure: No Advance Directives Date on File: 07/02/21 service: No Current occupational status: disabled Cognitive needs: Yes (walker) Hearing needs: No Vision needs: Yes (glasses) Review of Systems Narrative Const Denies chills, Denies excessive sweating, Denies fever(s), Denies headache(s) and Denies night sweats Eyes Denies dry eyes, Denies irritation and Denies itchy eyes ENT Reports Normal hearing present, Denies headache(s), Denies nasal congestion, Denies nasal discharge, Denies post nasal drip and Denies sore throat Card Denies chest pain, Denies chest pain at rest, Denies chest pain with activity, Denies claudication, Denies leg edema, Denies dyspnea on exertion, Denies orthopnea and Denies paroxysmal nocturnal dyspnea Resp Denies change in phlegm color, Denies chest congestion, Reports cough, Denies hemoptysis, Denies excessive phlegm production, Denies pain on inspiration, Denies pain with cough, Denies dyspnea on exertion, Denies stridor and Denies wheezing Musc Denies myalgias Neuro Reports Normal hearing present and Denies headache(s) Endo Denies excessive sweating Eric/Lymph Denies lymphadenopathy Aller/Immun Denies itchy eyes, Denies seasonal rhinorrhea and Denies wheezing Physical Exam Exam Exam: Vital Signs: Last Vital Signs Pulse 62 03/07/25 10:03 BP 110/58 L 03/07/25 10:03 Pulse Ox 95 03/07/25 10:03 Oxygen Delivery Method Room Air 03/07/25 10:03 BMI result Body Mass Index 27.5 Const General: cooperative, comfortable, no acute distress, well developed and alert Nutritional Appearance: obese Orientation/consciousness: patient oriented x3 HEENT Head: Yes normal to inspection, Yes normocephalic and Yes atraumatic Ears: hearing grossly normal bilaterally and external ears normal Eyes General: appearance normal, both eyes and all related structures Eyelids: Yes eyelids normal Sclerae: sclerae normal EOM: EOMs intact bilaterally Neck Neck: Yes normal visual inspection and Yes no lymphadenopathy Lymphatic: no lymphadenopathy noted Chest Chest palpation & inspection: normal inspection of the chest Resp Effort & Inspection: normal respiratory effort, able to speak in complete sentences, no audible wheezes, no cough, no stridor, not tachypneic, no tripod positioning and no use of accessory muscles Auscultation: diminished lung sounds Cardio Jugular venous distension: no JVD Rate: regular rate Rhythm: regular rhythm Skin Other: warm, dry General skin exam: no rashes or lesions noted Neuro General: patient oriented x3 Cranial nerves: Yes Normal hearing present Cognition (Neuro): normal cognition Gait exam (Neuro): Normal gait present Extrem Other: trace BLE edema Psych Appearance: grossly normal and well kempt Speech and movement: Normal speech and movement present and Clear speech present Affect: normal affect Attitude: cooperative Thought process: Normal thought process present Thought content: Normal thought content present Insight: Good insight present (Psych) Judgement: Good judgement present (Psych) Results Reviewed Results Reviewed: [place] [id number] CT Scan Report Signed Patient: Nedra Drummond MR#: [id number] : 1945 Acct:[id number] Age/Sex: 79 / F ADM Date: 01/30/25 Loc: HO.CT Attending Dr: Phuong Acharya NP Ordering Physician: Phuong Acharya NP Date of Service: 01/30/25 Procedure(s): CT chest wo IV con Accession Number(s): [id number] cc: Yoselyn Figueroa MD; Phuong Acharya NP~ Report Number: [id number]: Total DLP = 115.00 mGy-cm Reason for Exam: R91.8 - Other nonspecific abnormal finding of lung field EXAMINATION: CT CHEST WITHOUT IV CONTRAST INDICATION: R91.8 - Other nonspecific abnormal finding of lung field COMPARISON: Comparison is made with the prior examinations dated 10/30/2024 and 07/27/2024. TECHNIQUE: Helical CT scan of the chest was performed without intravenous contrast. Coronal and sagittal reformatted images were generated and reviewed. This CT exam was performed with one or more of the following dose reduction techniques: automated exposure control, adjustment of the mA and/or kV according to patient size, use of iterative reconstruction technique. DLP: 115 mGy-cm CHEST: THYROID: The thyroid is unremarkable. LUNGS: There is mild emphysema. Again seen is biapical scarring. Innumerable tiny calcified granulomas are again noted scattered throughout both lungs. There is a 10 mm groundglass opacity in the right upper lobe (series 5, image 50) without significant change. There is a 3 mm nodule in the left upper lobe (series 5, image 39). A small patchy airspace opacity is seen at the left lung base (series 5, image 101) which may be inflammatory in nature. There is linear scarring in the right lower lobe. MEDIASTINUM: There is no mediastinal lymphadenopathy. MEDARDO: Evaluation of the hilar regions is limited by lack of intravenous contrast material. CARDIOVASCULATURE: The heart is normal in size. A pacemaker is again seen in place. There is no pericardial effusion. The thoracic aorta is normal in caliber. DEGREE OF CORONARY CALCIFICATION: moderate PLEURA: There is no pleural effusion. No pneumothorax. MAIN AIRWAYS: The mainstem bronchi and proximal branches are patent. AXILLA: There is no axillary lymphadenopathy. BONES AND SOFT TISSUES: Again seen is a mild compression deformity of a lower thoracic vertebral body. UPPER ABDOMEN: The visualized portions of the liver, spleen, and adrenals have an unremarkable unenhanced appearance. There is a small hiatal hernia. CT/CT chest wo IV con IMPRESSION: 1. Small patchy airspace opacity at the left lung base which may be inflammatory in nature. Follow-up is recommended. 2. Scattered bilateral lung nodules as described. 3. Mild emphysema. Because mild emphysema is an independent risk factor for lung cancer, consider entering the patient into a program of yearly lung cancer screening with low dose chest CT. 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: Assessment & Plan Assessment & Plan (1) COPD (chronic obstructive pulmonary disease): Code(s): J44.9 - Chronic obstructive pulmonary disease, unspecified Category: Medical Qualifiers: COPD type: unspecified COPD Qualified Code(s): J44.9 - Chronic obstructive pulmonary disease, unspecified (2) CHF (congestive heart failure): Code(s): I50.9 - Heart failure, unspecified Category: Medical Qualifiers: Heart failure chronicity: chronic Heart failure type: diastolic Qualified Code(s): I50.32 - Chronic diastolic (congestive) heart failure (3) Ground glass opacity present on imaging of lung: Code(s): R91.8 - Other nonspecific abnormal finding of lung field Category: Medical (4) Cough: Code(s): R05.9 - Cough, unspecified Category: Medical (5) Nocturnal hypoxemia: Code(s): G47.34 - Idiopathic sleep related nonobstructive alveolar hypoventilation Category: Medical Plan The patient's cough improved from wet to dry after a course of antibiotics an an ER visit in February. Given her reported difficulty with her Trelegy inhaler technique, the plan is to supplement with nebulizer treatments to ensure adequate medication delivery. She will continue daily Trelegy and start the nebulizer once daily in the morning, with the option to increase to twice daily if tolerated without side effects like shakiness or tachycardia. Refills for the nebulizer medication have been sent to the pharmacy. The patient has multiple pulmonary nodules/granulomas seen on CT scans. These have been monitored since at least July and October with stability. The plan is to continue surveillance with a follow-up chest CT scan in six months. The patient is prescribed 2 liters of oxygen for nocturnal use. There has been a significant administrative delay with the supply company, [employer], in fulfilling the order for an overnight oxygen test and supplies, which was placed in December. The issue has been communicated to an [employer] banking representative who is investigating the matter. The patient will continue using her current oxygen supply at night as directed and await contact from [employer] within the next few weeks. Once she receives, will perform NOVA on 2L supplemental oxygen at [facility] to ensure resolution of nocturnal hypoxemia. A follow-up visit is scheduled in three to six months, and she was advised to call if anything changes. All questions were answered and patient is in agreement of plan. Patient Instructions - Continue to use your Trelegy inhaler every day as prescribed. - Start using your nebulizer machine once a day, in the morning. - If you do not feel shaky or have a fast heart rate after using the nebulizer, you can increase to using it twice a day. - Continue to use your oxygen at night at a setting of 2 liters. - The oxygen supply company, [employer], should call you in the next few weeks to deliver your overnight oxygen study. - If you do not hear from them, please call their office. - We will schedule another Chest CT of your chest in about six months. - Please call the office if your cough gets worse or if you have any other new problems. - Plan to return for a follow-up appointment in 3 to 6 months. Orders: Orders CT chest wo IV con 6 Months J98.4 - Other disorders of lung, R91.8 - Other nonspecific abnormal finding of lung field Medications: Refilled levalbuterol HCl 1.25 mg (3 mL) inhalation Q4-6H PRN 90 mL 1RF shortness of breath or wheezing Coding Level of Care Code Est Pt Level 4 (32709) Diagnoses Chronic obstructive pulmonary disease, unspecified COPD type J44.9 COPD type: unspecified COPD Chronic diastolic congestive heart failure I50.32 Heart failure chronicity: chronic Heart failure type: diastolic Ground glass opacity present on imaging of lung R91.8 Cough R05.9 Nocturnal hypoxemia G47.34
== END 2025-03-07 10:37 | disposition home or self-care (01) ==
LOC: HO.HPSW 09:56
PROVIDERS: PCP Internal Medicine; Visit Provider Nurse Practitioner Family
DX: J44.9 Chronic obstructive pulmonary disease, unspecified (principal); I50.32 Chronic diastolic (congestive) heart failure; R91.8 Other nonspecific abnormal finding of lung field; R05.9 Cough, unspecified; G47.34 Idiopathic sleep related nonobstructive alveolar hypoventilation
CPT/HCPCS: 99214

== ENCOUNTER → 2025-03-07 09:55 | Outpatient (BNVA) | payer OTHER, SELFPAY | PROVIDERS: PCP Internal Medicine; Visit Provider Nurse Practitioner Family | DX: J44.9 Chronic obstructive pulmonary disease, unspecified (principal); I11.0 Hypertensive heart disease with heart failure; I50.32 Chronic diastolic (congestive) heart failure; G47.34 Idiopathic sleep related nonobstructive alveolar hypoventilation; R91.8 Other nonspecific abnormal finding of lung field; R05.9 Cough, unspecified; Z79.899 Other long term (current) drug therapy; Z87.891 Personal history of nicotine dependence | CPT/HCPCS: 99212 ==